=== PATIENT | female | born 1965 | race Caucasian/White ===

== ENCOUNTER 2017-05-19 12:13 | Inpatient (IN) | payer MEDICAID, SELFPAY ==
[2017-05-19] VITALS (26 sets, daily range): BP systolic 112–132; BP diastolic 62–86; PULSE 63–94; RESP 10–28; TEMP 36.9–37; O2SAT 63–98; BMI 21.6; BMI 46.9
--- NOTE | 2017-05-19 12:16 | ED.RN ---
CALLED FOR BIPAP PER DR DRAKE
--- NOTE | 2017-05-19 12:18 | RAD_ITS ---
STUDY: X-RAY CHEST REASON FOR EXAM: Female, 51 years old. Shortness of breath TECHNIQUE: One view COMPARISON: July 13, 2016 FINDINGS: There is cardiomegaly with a batwing distribution of consolidations most likely from pulmonary edema.. Normal visualized thoracic spine. Normal visualized ribs, clavicles, and shoulders. There is no demonstrated abnormality of the visualized soft tissue structures of the upper abdomen. RAD/Chest 1 View (Portable) IMPRESSION: Cardiomegaly with bilateral pulmonary edema Electronically Signed: Amado Kahn, at 13:24 EST Tel , Service support ,
--- NOTE | 2017-05-19 12:19 | EKG12_ITS ---
Test Reason : SOB Blood Pressure : / mmHG Vent. Rate : 089 BPM Atrial Rate : 091 BPM P-R Int : 000 ms QRS Dur : 098 ms QT Int : 404 ms P-R-T Axes : 000 083 168 degrees QTc Int : 491 ms Atrial fibrillation Nonspecific ST and T wave abnormality Prolonged QT Abnormal ECG Confirmed by BOB RAMÍREZ, SANTA ([id number]), fan mail editor BHASKAR AMANDA ([id number]) on 05/21/2017 1:21:06 PM Referred By: MAURILIO Confirmed By:SANTA ROJAS MD
--- NOTE | 2017-05-19 12:22 | ED.VISSUMM ---
- ER Visit Summary Date of Service: 05/19/17 Chief Complaint: Difficulty breathing History of Present Illness: The patient is a 51 F presents because of shortness of breath. She reports increased shortness of breath last evening. She was unable to lie flat on her back. She states she discontinued taking her Lasix because she thought she had the flu. She does have history of CHF and atrial fibrillation. She is on Eliquis. There is also history of hypertension, iron deficiency anemia, hypothyroidism, obstructive sleep apnea and pulmonary hypertension. Patient denies headache, visual, ocular or auditory symptoms. She denies runny nose, postnasal drainage or sore throat. She does have a cough. Her cough is nonproductive. She denies any chest discomfort. She denies nausea, vomiting or diarrhea. She denies dysuria, frequency, urgency hematuria. Physical Examination: SHEENT is hypoxic, tachypneic and tachycardic. She has central and peripheral cyanosis. Patient has labored breathing. She is able to speak in 1 or 2 word sentences. Pupils equal round reactive. Extra muscle intact. Conjunctive is pink. Uvula midline. No erythema x-ray posterior pharynx. Trachea midline. Unable to assess for JVD because of body habitus. Lungs reveal rales throughout. Heart is irregular with distant heart tones. Abdomen is soft nontender. She does have palpable distal pulses upper and lower extremity and they are symmetric. She is alert oriented with a nonfocal neurologic exam. Test Results: KG reveals atrial fibrillation rate 89 with an ossific anterolateral changes which are improved from July 13, 2016. QT prolongation is noted. Chest x-ray reveals pulmonary edema. White count is 3.8 with 80 segs no bands. H&H 11.4 and 33.9. Electrode panel was marked for slight elevation glucose 129. Troponin is less than 0.02. Blood gas on IP of 12 BP is 6 is remarkable for an AA gradient. PH is 7.48, PCO2 36.4, PaO2 64 with a saturation of 94%, which correlates with a pulse ox. Emergency Department Course and Treatment: Was placed on a nonrebreather mask. Her saturation increased to 85%. BiPAP was ordered since clinically she is in heart failure. EKG, portable chest x-ray and appropriate blood work was ordered. If x-ray confirms heart failure will place on nitroglycerin drip and administer Lasix for diuresis since she reports she has not taken her Lasix in 1 week. Treatment Plan: Since chest x-ray did reveal pulmonary edema. She was placed on nitroglycerin drip for preload and afterload reduction. She also was given Lasix since she discontinued her Lasix the past week. Disposition: Admit to ICU Impression: Line 1. Respiratory failure with hypoxia 2. Pulmonary edema 3. History of hypertension 4. Chronic atrial fibrillation on anticoagulation therapy 5. History of pulmonary hypertension 6. History of iron deficiency anemia This note was generated with [employer] dictation software. It may contain incorrect words, spelling, and punctuation that were not noted in review of the chart prior to signing ED Disposition - Plan for ED Patient: Chief Complaint: Shortness of Breath Referrals: Nabor Garcia Chi, MD [Primary Care Provider] -
--- NOTE | 2017-05-19 12:28 | ED.RN ---
[facility]
[2017-05-19 12:34] LABS: Absolute Lymphocyte Count 0.52 X10^3/ul (0.83-4.51); Basophil# 0.03 X10^3/uL; Basophil% 0.8 % (0-1); Eosinophil# 0.03 X10^3/uL; Eosinophils% 0.8 % (0-5); Hematocrit 34.9 % (37-47); Hemoglobin 11.4 g/dl (12.0-15.0); Lymphocyte # 0.52 X10^3/ul (4.0); Lymphocyte % 13.6 % (19-41); Mean Corp Hgb Conc 32.7 g/gl (32-36); Mean Corpuscular Hgb 29.3 pg (27.0-32.0); Mean Corpuscular Volume 89.7 fL (81-99); Mean Platelet Vol. 12.5 fl (6.2-12.0); Monocyte# 0.19 X10^3/uL; Neutrophil # 3.04 X10^3/uL (2.7-7.7); Neutrophil % 79.5 % (47-70); Platelet Count 149 K/mm3 (150-450); RBC Distribution Width CV 13.5 % (11.6-14.6); RBC Distribution Width SD 43.6 fl (35.1-43.9); Red Blood Count 3.89 M/mm3 (4.2-5.4); White Blood Count 3.8 K/mm3 (4.4-11.0)
[2017-05-19 12:41] LABS: Differential Indicated SCAN CRITERIA MET; POSITIVE COUNT NO; POSITIVE DIFFERENTIAL YES; POSITIVE MORPHOLOGY NO
[2017-05-19] MEDS: Furosemide 40 MG/4 ML Vial IV ×2 (12:46→22:47)
[2017-05-19 12:52] LABS: Differential Comment SCANNED
[2017-05-19 12:54] LABS: Anion Gap 10 (5-15); BUN 17 mg/dL (7-18); BUN/Creat Ratio 22.2 RATIO (10-20); Calcium,Total 8.8 mg/dL (8.5-10.1); Chloride 102 mmol/L (98-107); Creatinine, Serum 0.76 mg/dL (0.55-1.02); EST Glomerular Filtration Rate 84 mL/min (>60); Est Glom Filt Rate - Afr Amer 102 mL/min (>60); Glucose 129 mg/dL (74-106); Potassium 3.2 mmol/L (3.5-5.1); Sodium Level 139 mmol/L (136-145)
[2017-05-19 12:56] LABS: Allen Test POS; Base Excess 3 mmol/L (-2 to +2); Blood Gas Specimen Type ART; EPAP 6; FI02 35; IPAP 12; PO2 64 mmHG (75-100); RR 24; SITE R Radial; SO2 94 % (95-99); Time Given 1244; Total Carbon Dioxide 28 mmol/L; pCO2 36.4 mmHg (35-45); pH 7.48 (7.35-7.45)
[2017-05-19] MEDS: Nitroglycerin Infusion 250 ML 3 MG IV (12:57)
--- NOTE | 2017-05-19 13:18 | ED.RN ---
RESPIRATORY THERAPY NOTIFIED PULSE OX RANGING 88-91% ON BIPAP. ALSO ASKED TO ADJUST MASK
--- NOTE | 2017-05-19 13:51 | PCM.HP.STD ---
Problem List (1) Atrial fibrillation Status: Chronic Qualifiers: (2) JASMIN (obstructive sleep apnea) Status: Chronic Comment: untreated (3) Obesity, Class III, BMI 40-49.9 (morbid obesity) Status: Chronic (4) Hypertension Status: Chronic Qualifiers: (5) Hematoma of leg Status: Chronic (6) Pulmonary hypertension Status: Chronic (7) Hypothyroidism Status: Chronic Qualifiers: (8) Chronic anticoagulation Status: Chronic (9) Osteoarthritis Status: Chronic (10) Depression Status: Chronic History of Present Illness Date of Admission: 05/19/17 Chief Complaint: Shortness of breath. The patient is a 51 year old F with past medical history as mentioned above presented to the emergency room because of shortness of breath. Her symptoms started around 6 days ago with slowly progressive shortness of breath, initially was with mild to moderate exertion and over the last couple of days, has been even at rest, aggravated by activity, no significant relieving factors, associated with minimally productive cough and subjective fever at home. She mentioned that at the beginning of this illness, she had symptoms with subjective fever, muscle aches, malaise and shortness of breath as well as diarrhea and nausea. At this time, she denies any more nausea and diarrhea for the last 3 days. She denied chest pain dictation, dizziness or lightheadedness. Denied abdominal pain. she denies urinary symptoms. She mentioned that she does have a history of congestive heart failure and she has been on Lasix but she stopped taking Lasix for the last week since became sick to avoid going to the bathroom multiple times. In the emergency room, patient was dyspneic and tachypneic. She was afebrile, blood pressure stable, pulse ox was 63% on room air. She was started on IV nitroglycerin drip, started on BiPAP and her pulse ox improved with BiPAP to 96%. Is remarkable for potassium of 3.2, otherwise normal. Appointment was negative. EKG revealed A. fib, rate controlled, no acute ischemic changes. ABG revealed pH of 7.48, PCO2 of 36 and PO2 of 64. Chest x-ray showed bilateral pulmonary vascular congestion, more on the right side consistent with acute pulmonary edema picture. She is being admitted for acute hypoxic respiratory failure secondary to acute pulmonary edema and possible interstitial pneumonitis given her history of flulike symptoms at the beginning of her illness. Past Medical History Past Medical History (Chronic Problems): Chronic Problems Open wound of right lower leg (Chronic) S81.801A open surgical hematoma wound right anterior leg Atrial fibrillation (Chronic) JASMIN (obstructive sleep apnea) (Chronic) untreated Obesity, Class III, BMI 40-49.9 (morbid obesity) (Chronic) Hypertension (Chronic) Hematoma of leg (Chronic) Pulmonary hypertension (Chronic) Hypothyroidism (Chronic) Chronic anticoagulation (Chronic) Osteoarthritis (Chronic) Depression (Chronic) Allergies No Known Allergies Allergy (Verified 04/27/17 11:12) Home Medications: Ambulatory Orders Medication Instructions Recorded Fluoxetine [Prozac] 60 mg PO DAILY 07/05/15 Ranitidine [Zantac] 150 mg PO BID 07/05/15 Metoprolol Tartrate [Lopressor 50 mg PO BID 05/16/16 (beta miriam)] Apixaban [Eliquis] 5 mg PO BID #0 tab 05/23/16 gabapentin 100 mg capsule 300 mg PO TID 30 Days #60 04/27/17 levothyroxine 50 mcg tablet 50 mcg PO DAILY 30 Days #30 04/27/17 oxaprozin 600 mg tablet 600 mg PO BID 30 Days #60 04/27/17 ranitidine 150 mg capsule 150 mg PO DAILY 30 Days #60 04/27/17 Diltiazem HCl [Tiazac] 180 mg PO DAILY 05/19/17 Surgical History: cholecystectomy, - - arthroscopic surgery on the knee, umbilical hernia repair. Debridement hematoma right leg in 2007. surgical preparation right anterior leg with incision and drainage and excisional debridement hematoma (380 cm2) - 05/17/16. Excisional debridement nonhealing hematoma ulcer right anterior leg with STSG reconstruction from lower anterior abdominal wall (126 cm2) - 09/21/16. Psychiatric History: No pertinent psych hx DIRECTOR DIGITAL CATALOGUE History: No pertinent DIRECTOR DIGITAL CATALOGUE history Lives: With Family Smoking Status: Former smoker Alcohol: None Drugs: None - *Family History Paternal History Items: Heart Disease - father at 64 YOA with an PR, Hypertension, Stroke Maternal History Items: Hypertension, Stroke Review of Systems Constitutional: Denies: Anorexia, Chills, Fever, Weakness Eyes: Denies: Blurred vision, Double vision, Drainage, Redness HEENT: Denies: Difficulty Hearing, Ear Pain, Eye Pain, Nasal Congestion, Sore Throat Cardiovascular: Reports: Orthopnea. Denies: Chest Pain, Chest Pressure, Edema, Heaviness, Light Headedness, Paroxysmal Noc. Dyspnea, Syncope Respiratory: Reports: Cough, Shortness of Breath, Shortness of breath at rest, Shortness of breath upon exertion, Sputum production. Denies: Hemoptysis, Pleuritic Pain, Wheezing Gastrointestinal: Reports: Diarrhea, Nausea. Denies: Abdominal Pain, Constipation, Vomiting Genitourinary: Denies: Dysuria, Frequency, Hematuria Musculoskeletal: Denies: Arm Pain, Back Pain, Foot Pain Skin: Denies: Dryness, Rash Neurological: Denies: Balance problems, Double vision, Change in Speech, Slurred speech, Confusion, Headaches, Incoordination, Numbness Psychiatric: Reports: Depression. Denies: Anxiety Endocrine: Denies: Change in Body Habitus, Polydipsia VTE Information - Inpt Only VTE Present on Admission: No VTE Mechan Device Prophylaxis: None VTE Pharm Prophylaxis ordered?: No - Physical Exam General: Alert, Oriented x3, Cooperative, - - She is in moderate respiratory distress. HEENT: Atraumatic, PERRLA, EOMI Oral: Moist Mucosa, No Gingival or Mucosal Lesions/ Ulcerations Neck: Supple, No JVD, Negative Carotid Bruits, Trachea Midline, Thyroid Normal Size and Texture Lungs: No wheeze, Rales, Rhonchi, Short of Breath, Tachypneic, - - Decreased breath sounds bilateral, bilateral coarse crackles, rhonchi. Cardiovascular: Normal S1, Normal S2, No murmurs, PMI Normal, Irregular Rate Abdomen: Bowel Sounds Present, Soft, Non Tender, Non-Distended, No Hepato-splenomegaly, Obese Extremities: No clubbing, No cyanosis, No edema, - - Scar and skin graft on the right lower extremity, no evidence of open wounds or infection. Skin: No rashes, No breakdown Lymphatic: No Cervical, Supraclavicular, or Inguinal Adenopathy Neurological: Cranial nerves II-XII grossly intact, Motor Exam 5/5 strength throughout Psych/Mental Status: Normal Affect, Appropriate, Alert and oriented to time, place, person, mood and affect Vital Signs Temp Pulse Resp BP Pulse Ox 98.4 F 90 28 H 118/80 98 05/19/17 12:14 05/19/17 13:35 05/19/17 13:35 05/19/17 13:35 02/10/18 13:35 Oxygen Delivery Method Bi-pap Laboratory Tests 05/19/17 05/19/17 05/19/17 Range/Units 12:49 12:20 12:20 WBC 3.8 L (4.4-11.0) K/mm3 RBC 3.89 L (4.2-5.4) M/mm3 Hgb 11.4 L (12.0-15.0) g/dl Hct 34.9 L (37-47) % MCV 89.7 (81-99) fL MCH 29.3 (27.0-32.0) pg MCHC 32.7 (32-36) g/gl RDW 13.5 (11.6-14.6) % RDW Differential 43.6 (35.1-43.9) fl Plt Count 149 L (150-450) K/mm3 MPV 12.5 H (6.2-12.0) fl Immature Gran % (Auto) 0.300 (0.0-0.9) % Neut % (Auto) 79.5 H (47-70) % Lymph % (Auto) 13.6 L (19-41) % Collier % (Auto) 5.0 (0-10) % Eos % (Auto) 0.8 (0-5) % Baso % (Auto) 0.8 (0-1) % Absolute Neuts (auto) 3.0 (2.0-7.7) X10^3/uL Absolute Lymphs (auto) 0.52 L (0.83-4.51) X10^3/ul Total Counted Not Reportable Differential Comment SCANNED Specimen Type ART Sample Site R Radial pH 7.48 H (7.35-7.45) Bicarbonate Actual 27.0 H (22-26) mmol/L POC Total CO2 28 mmol/L Base Excess 3 H (-2 to +2) mmol/L O2 Saturation 94 L (95-99) % O2 % 35 ABG pCO2 36.4 (35-45) mmHg ABG pO2 64 L (75-100) mmHG David Test POS Respiration Rate 24 O2 Delivery Device Bi / C PAP EPAP 6 IPAP 12 Blood Gas Notified Whom ED Blood Gas Notified Time 1244 Sodium 139 (136-145) mmol/L Potassium 3.2 L (3.5-5.1) mmol/L Chloride 102 (98-107) mmol/L Carbon Dioxide 27.0 (21.0-32.0) mmol/L Anion Gap 10 (5-15) BUN 17 (7-18) mg/dL Creatinine 0.76 (0.55-1.02) mg/dL Estim Creat Clear Calc 84.20 ml/min Est GFR (MDRD) Af Amer 102 (>60) mL/min Est GFR (MDRD) Non-Af 84 (>60) mL/min BUN/Creatinine Ratio 22.2 H (10-20) RATIO Glucose 129 H (74-106) mg/dL Calcium 8.8 (8.5-10.1) mg/dL Troponin I < 0.02 (<0.06) ng/mL Clinical Impression(s) from Imaging Studies Chest X-Ray 05/19/17 12:18 IMPRESSION: Cardiomegaly with bilateral pulmonary edema Electronically Signed: Amado Khan, at 13:24 EST Tel , Service support , Assessment/Plan This is a 51 years old female patient presented to the emergency room because of 1 week history of shortness of breath preceded by flulike symptoms, found to have acute hypoxic respiratory failure attributed to acute pulmonary edema and possible bilateral postviral interstitial pneumonitis. #1 acute hypoxic respiratory failure: Attributed to acute pulmonary edema which could be due to acute and chronic CHF versus interstitial pneumonitis. Patient does have history of sleep apnea as well as pulmonary hypertension and she mentioned that she does have history of CHF and she has been on Lasix but she did not take her Lasix for the last week when she is sick with flulike symptoms. Chest x-ray reviewed, showed bilateral pulmonary vascular congestion, more on the right lung. EKG revealed A. fib, rate controlled, no acute ischemic changes. Troponin is negative. Plan: Admit to PCU, cardiac monitoring, serial cardiac enzymes, 2D echocardiogram, IV Lasix for diuresis, bronchodilators, continue BiPAP, Empiric IV Levaquin, repeat chest x-ray tomorrow morning, incentive spirometer, PT OT evaluation and treatment. #2 acute pulmonary edema: This is based on chest x-ray findings as well as symptoms. Does have history of CHF and she has been noncompliant with Lasix for the last week. Echocardiogram on July, that showed ejection fraction 55%. Plan: IV Lasix for diuresis, serial cardiac enzymes, 2D echocardiogram, continue BiPAP for now. #3 possible post viral interstitial pneumonitis: This is based on flulike symptoms preceding this illness as well as productive cough, diarrhea and nausea. She is afebrile, no leukocytosis which goes against pneumonitis. Plan: Respiratory panel for viruses, pneumococcal and Legionella antigen, bronchodilators, empiric IV Levaquin, sputum culture, urine culture, UA. #4 hypokalemia: Likely because of the diarrhea which stopped at this time. Also, patient was on Lasix. Plan to replace potassium with oral K Dur, repeat BMP tomorrow morning. #5 chronic atrial fibrillation: Rate is stable, blood pressure stable, continue Cardizem and metoprolol for rate control, continue Eliquis for anticoagulant. #6 Hypertension: Blood pressure stable, continue metoprolol and Cardizem. #7 hypothyroidism: Continue levothyroxine. 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 Stable, no acute issues, no evidence of open wounds of the right lower extremity. #9 DVT prophylaxis: Continue Eliquis. Other chronic medical problems: #1 obstructive sleep apnea. Untreated. #2 depression. #3 pulmonary hypertension. #4 osteoarthritis. This note was generated with [employer] dictation software. It may contain incorrect words, spelling, and punctuation that were not noted in checking the note before signing. Code Visit Inpatient E&M: 30807 Init Hosp L3
--- NOTE | 2017-05-19 13:55 | ECHOD_ITS ---
Reason For Study: CHF Procedure This was a 2D Doppler, Color Flow transthoracic echocardiogram. Exam performed portable in patient room. Left Ventricle Normal LV size. The estimated ejection fraction is 50 %. No regional wall motion abnormalities noted. Right Ventricle Normal RV size. Normal systolic function. Atria The left atrium is moderately enlarged. The right atrium is moderately enlarged. Mitral Valve Normal mitral valve. Tricuspid Valve Normal tricuspid valve. Mild (1+) tricuspid valve insufficiency. Pulmonary artery systolic pressure is 34 mmHg. Aortic Valve Normal aortic valve. Pulmonic Valve Normal pulmonic valve. Great Vessels Normal aortic root. The pulmonary artery is normal size. Normal inferior vena cava. Pericardium/Pleural No pericardial effusion. MMode/2D Measurements & Calculations LVIDd: 5.2 cm IVSd: 0.77 cm Ao root diam: 3.6 cm LVIDs: 3.9 cm LVPWd: 0.83 cm LA dimension: 5.0 cm RVDd: 4.1 cm FS: 25.1 % LAV(MOD-bp): 97.9 ml LA A4 area: 29.7 cm2 RA A4 area: 26.1 cm2 LAV(MOD-bp) Indexed: 41.3 ml/m2 LAV(MOD-sp2): 97.7 ml LAV(MOD-sp4): 96.9 ml Doppler Measurements & Calculations MV E max long: 85.8 cm/sec Lat Peak E' Long: 15.7 cm/sec Med Peak E' Long: 5.5 cm/sec E/E' lat: 5.5 E/E' med: 15.6 Ao V2 max: 137.6 cm/sec LV V1 max: 109.2 cm/sec PA V2 max: 81.8 cm/sec Ao max P.8 mmHg LV V1 max P.8 mmHg Ao V2 mean: 96.8 cm/sec Ao mean P.2 mmHg Ao V2 VTI: 21.9 cm TR max long: 269.0 cm/sec TR max P.2 mmHg Interpretation Summary Normal LV size. The estimated ejection fraction is 50 %. The left atrium is moderately enlarged. The right atrium is moderately enlarged. Structurally normal valves. Ordering Physician: Abdoul Cuellar Referring Physician: Nabor Garcia Chi Performed By: Aleksandra Andrew, MARIEL, RVT
--- NOTE | 2017-05-19 13:59 | HP.PCM_ITS ---
Problem List (1) Atrial fibrillation Status: Chronic Qualifiers: (2) JASMIN (obstructive sleep apnea) Status: Chronic Comment: untreated (3) Obesity, Class III, BMI 40-49.9 (morbid obesity) Status: Chronic (4) Hypertension Status: Chronic Qualifiers: (5) Hematoma of leg Status: Chronic (6) Pulmonary hypertension Status: Chronic (7) Hypothyroidism Status: Chronic Qualifiers: (8) Chronic anticoagulation Status: Chronic (9) Osteoarthritis Status: Chronic (10) Depression Status: Chronic History of Present Illness Date of Admission: 05/19/17 Chief Complaint: Shortness of breath. The patient is a 51 year old F with past medical history as mentioned above presented to the emergency room because of shortness of breath. Her symptoms started around 6 days ago with slowly progressive shortness of breath, initially was with mild to moderate exertion and over the last couple of days, has been even at rest, aggravated by activity, no significant relieving factors , associated with minimally productive cough and subjective fever at home. She mentioned that at the beginning of this illness, she had symptoms with subjective fever, muscle aches, malaise and shortness of breath as well as diarrhea and nausea. At this time, she denies any more nausea and diarrhea for the last 3 days. She denied chest pain dictation, dizziness or lightheadedness. Denied abdominal pain. she denies urinary symptoms. She mentioned that she does have a history of congestive heart failure and she has been on Lasix but she stopped taking Lasix for the last week since became sick to avoid going to the bathroom multiple times. In the emergency room, patient was dyspneic and tachypneic. She was afebrile, blood pressure stable, pulse ox was 63% on room air. She was started on IV nitroglycerin drip, started on BiPAP and her pulse ox improved with BiPAP to 96%. Is remarkable for potassium of 3.2, otherwise normal. Appointment was negative. EKG revealed A. fib, rate controlled, no acute ischemic changes. ABG revealed pH of 7.48, PCO2 of 36 and PO2 of 64. Chest x-ray showed bilateral pulmonary vascular congestion, more on the right side consistent with acute pulmonary edema picture. She is being admitted for acute hypoxic respiratory failure secondary to acute pulmonary edema and possible interstitial pneumonitis given her history of flulike symptoms at the beginning of her illness. Past Medical History Past Medical History (Chronic Problems): Chronic Problems Open wound of right lower leg (Chronic) S81.801A open surgical hematoma wound right anterior leg Atrial fibrillation (Chronic) JASMIN (obstructive sleep apnea) (Chronic) untreated Obesity, Class III, BMI 40-49.9 (morbid obesity) (Chronic) Hypertension (Chronic) Hematoma of leg (Chronic) Pulmonary hypertension (Chronic) Hypothyroidism (Chronic) Chronic anticoagulation (Chronic) Osteoarthritis (Chronic) Depression (Chronic) Allergies No Known Allergies Allergy (Verified 04/27/17 11:12) Home Medications: Ambulatory Orders Medication Instructions Recorded Fluoxetine [Prozac] 60 mg PO DAILY 07/05/15 Ranitidine [Zantac] 150 mg PO BID 07/05/15 Metoprolol Tartrate [Lopressor 50 mg PO BID 05/16/16 (beta miriam)] Apixaban [Eliquis] 5 mg PO BID #0 tab 05/23/16 gabapentin 100 mg capsule 300 mg PO TID 30 Days #60 04/27/17 levothyroxine 50 mcg tablet 50 mcg PO DAILY 30 Days #30 04/27/17 oxaprozin 600 mg tablet 600 mg PO BID 30 Days #60 04/27/17 ranitidine 150 mg capsule 150 mg PO DAILY 30 Days #60 04/27/17 Diltiazem HCl [Tiazac] 180 mg PO DAILY 05/19/17 Surgical History: cholecystectomy, - - arthroscopic surgery on the knee, umbilical hernia repair. Debridement hematoma right leg in 2007. surgical preparation right anterior leg with incision and drainage and excisional debridement hematoma (380 cm2) - 05/17/16. Excisional debridement nonhealing hematoma ulcer right anterior leg with STSG reconstruction from lower anterior abdominal wall (126 cm2) - 09/21/16. 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 Denies: Chest Pain, Chest Pressure, Edema, Heaviness, Light Headedness, Paroxysmal Noc. Dyspnea, Syncope Respiratory: Reports: Cough, Shortness of Breath, Shortness of breath at rest, Shortness of breath upon exertion, Sputum production. Denies: Hemoptysis, Pleuritic Pain, Wheezing Gastrointestinal: Reports: Diarrhea, Nausea. Denies: Abdominal Pain, Constipation, Vomiting Genitourinary: Denies: Dysuria, Frequency, Hematuria Musculoskeletal: Denies: Arm Pain, Back Pain, Foot Pain Skin: Denies: Dryness, Rash Neurological: Denies: Balance problems, Double vision, Change in Speech, Slurred speech, Confusion, Headaches, Incoordination, Numbness Psychiatric: Reports: Depression. Denies: Anxiety Endocrine: Denies: Change in Body Habitus, Polydipsia VTE Information - Inpt Only VTE Present on Admission: No VTE Mechan Device Prophylaxis: None VTE Pharm Prophylaxis ordered?: No - Physical Exam General: Alert, Oriented x3, Cooperative, - - She is in moderate respiratory distress. HEENT: Atraumatic, PERRLA, EOMI Oral: Moist Mucosa, No Gingival or Mucosal Lesions/ Ulcerations Neck: Supple, No JVD, Negative Carotid Bruits, Trachea Midline, Thyroid Normal Size and Texture Lungs: No wheeze, Rales, Rhonchi, Short of Breath, Tachypneic, - - Decreased breath sounds bilateral, bilateral coarse crackles, rhonchi. Cardiovascular: Normal S1, Normal S2, No murmurs, PMI Normal, Irregular Rate Abdomen: Bowel Sounds Present, Soft, Non Tender, Non-Distended, No Hepato- splenomegaly, Obese Extremities: No clubbing, No cyanosis, No edema, - - Scar and skin graft on the right lower extremity, no evidence of open wounds or infection. Skin: No rashes, No breakdown Lymphatic: No Cervical, Supraclavicular, or Inguinal Adenopathy Neurological: Cranial nerves II-XII grossly intact, Motor Exam 5/5 strength throughout Psych/Mental Status: Normal Affect, Appropriate, Alert and oriented to time, place, person, mood and affect Vital Signs Temp Pulse Resp BP Pulse Ox 98.4 F 90 28 H 118/80 98 05/19/17 12:14 05/19/17 13:35 05/19/17 13:35 05/19/17 13:35 02/10/18 13:35 Oxygen Delivery Method Bi-pap Laboratory Tests 3 05/19/17 05/19/17 05/19/17 Range/Units 12:49 12:20 12:20 WBC 3.8 L (4.4-11.0) K/mm3 RBC 3.89 L (4.2-5.4) M/mm3 Hgb 11.4 L (12.0-15.0) g/dl Hct 34.9 L (37-47) % MCV 89.7 (81-99) fL MCH 29.3 (27.0-32.0) pg MCHC 32.7 (32-36) g/gl RDW 13.5 (11.6-14.6) % RDW Differential 43.6 (35.1-43.9) fl Plt Count 149 L (150-450) K/mm3 MPV 12.5 H (6.2-12.0) fl Immature Gran % (Auto) 0.300 (0.0-0.9) % Neut % (Auto) 79.5 H (47-70) % Lymph % (Auto) 13.6 L (19-41) % Assumption % (Auto) 5.0 (0-10) % Eos % (Auto) 0.8 (0-5) % Baso % (Auto) 0.8 (0-1) % Absolute Neuts (auto) 3.0 (2.0-7.7) X10^3/uL Absolute Lymphs (auto) 0.52 L (0.83-4.51) X10^3/ul Total Counted Not Reportable Differential Comment SCANNED Specimen Type ART Sample Site R Radial pH 7.48 H (7.35-7.45) Bicarbonate Actual 27.0 H (22-26) mmol/L POC Total CO2 28 mmol/L Base Excess 3 H (-2 to +2) mmol/L O2 Saturation 94 L (95-99) % O2 % 35 ABG pCO2 36.4 (35-45) mmHg ABG pO2 64 L (75-100) mmHG David Test POS Respiration Rate 24 O2 Delivery Device Bi / C PAP EPAP 6 IPAP 12 Blood Gas Notified Whom ED Blood Gas Notified Time 1244 Sodium 139 (136-145) mmol/L Potassium 3.2 L (3.5-5.1) mmol/L Chloride 102 (98-107) mmol/L Carbon Dioxide 27.0 (21.0-32.0) mmol/L Anion Gap 10 (5-15) BUN 17 (7-18) mg/dL Creatinine 0.76 (0.55-1.02) mg/dL Estim Creat Clear Calc 84.20 ml/min Est GFR (MDRD) Af Amer 102 (>60) mL/min Est GFR (MDRD) Non-Af 84 (>60) mL/min BUN/Creatinine Ratio 22.2 H (10-20) RATIO Glucose 129 H (74-106) mg/dL Calcium 8.8 (8.5-10.1) mg/dL Troponin I < 0.02 (<0.06) ng/mL 3 Clinical Impression(s) from Imaging Studies Chest X-Ray 05/19/17 12:18 IMPRESSION: Cardiomegaly with bilateral pulmonary edema Electronically Signed: Amado Khan, at 13:24 EST Tel , Service support , Assessment/Plan This is a 51 years old female patient presented to the emergency room because of 1 week history of shortness of breath preceded by flulike symptoms, found to have acute hypoxic respiratory failure attributed to acute pulmonary edema and possible bilateral postviral interstitial pneumonitis. #1 acute hypoxic respiratory failure: Attributed to acute pulmonary edema which could be due to acute and chronic CHF versus interstitial pneumonitis. Patient does have history of sleep apnea as well as pulmonary hypertension and she mentioned that she does have history of CHF and she has been on Lasix but she did not take her Lasix for the last week when she is sick with flulike symptoms. Chest x-ray reviewed, showed bilateral pulmonary vascular congestion , more on the right lung. EKG revealed A. fib, rate controlled, no acute ischemic changes. Troponin is negative. Plan: Admit to PCU, cardiac monitoring , serial cardiac enzymes, 2D echocardiogram, IV Lasix for diuresis, bronchodilators, continue BiPAP, Empiric IV Levaquin, repeat chest x-ray tomorrow morning, incentive spirometer, PT OT evaluation and treatment. #2 acute pulmonary edema: This is based on chest x-ray findings as well as symptoms. Does have history of CHF and she has been noncompliant with Lasix for the last week. Echocardiogram on July, that showed ejection fraction 55%. Plan: IV Lasix for diuresis, serial cardiac enzymes, 2D echocardiogram, continue BiPAP for now. #3 possible post viral interstitial pneumonitis: This is based on flulike symptoms preceding this illness as well as productive cough, diarrhea and nausea. She is afebrile, no leukocytosis which goes against pneumonitis. Plan : Respiratory panel for viruses, pneumococcal and Legionella antigen, bronchodilators, empiric IV Levaquin, sputum culture, urine culture, UA. #4 hypokalemia: Likely because of the diarrhea which stopped at this time. Also , patient was on Lasix. Plan to replace potassium with oral K Dur, repeat BMP tomorrow morning. #5 chronic atrial fibrillation: Rate is stable, blood pressure stable, continue Cardizem and metoprolol for rate control, continue Eliquis for anticoagulant. #6 Hypertension: Blood pressure stable, continue metoprolol and Cardizem. #7 hypothyroidism: Continue levothyroxine. 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 Stable, no acute issues, no evidence of open wounds of the right lower extremity. #9 DVT prophylaxis: Continue Eliquis. Other chronic medical problems: #1 obstructive sleep apnea. Untreated. #2 depression. #3 pulmonary hypertension. #4 osteoarthritis. This note was generated with [employer] Directation software. It may contain incorrect words, spelling, and punctuation that were not noted in checking the note before signing. Code Visit Inpatient E&M: 08254 Init Hosp L3
[2017-05-19 14:38] LABS: International Normalized Ratio 1.1; Prothrombin Time (Protime)PT. 13.5 SECONDS (11.7-14.9)
[2017-05-19 14:39] LABS: BNP,B-Type NATRIURETIC PEPTIDE 677.5 pg/mL (0-100)
[2017-05-19] MEDS: Metoprolol Tartrate 50 MG Tablet PO ×2 (15:19→22:48)
[2017-05-19] MEDS: Famotidine 20 MG Tablet PO ×2 (15:19→22:48)
[2017-05-19] MEDS: Levothyroxine 50 MCG Tablet PO (15:19)
[2017-05-19] MEDS: APIXABAN 5 MG TABLET PO ×2 (15:19→22:47)
[2017-05-19] MEDS: FLUoxetine 20 MG Capsule 60 MG PO (15:20)
[2017-05-19 15:51] LABS: Bacteria 0 SEEN /hpf (None Seen); Mucous, Urine 0 SEEN /hpf (<or=2+); Squamous Epithelial Cells - UA 0 SEEN /hpf (5-10); White Blood Cells 0 SEEN /hpf (0-5)
[2017-05-19 15:53] LABS: Color, Urine Straw (Yellow); Glucose, Dipstick Normal (Normal); Ketone-Dipstick Negative (Negative); Leukocyte Esterase-Dipstick Negative /ul (Negative); Nitrite-Dipstick Negative (Negative); Occult Blood-Urine Negative /ul (Negative); Protein-Dipstick Negative (Negative); Urine Bilirubin Dipstick Negative (Negative); Urine Clarity Clear (Clear); Urine Urobilinogen Normal (Normal)
[2017-05-19 16:01] LABS: Red Blood Cells-Urine 0-5 SEEN /hpf (0-5)
--- NOTE | 2017-05-19 16:22 | CON.PCM_ITS ---
Problem List (1) Pulmonary edema Status: Acute (2) Atrial fibrillation Status: Chronic Qualifiers: Atrial fibrillation type: permanent (3) Tricuspid valve disorder Status: Chronic (4) Hypertension Status: Chronic Qualifiers: Hypertension type: essential hypertension (5) Pulmonary hypertension Status: Chronic (6) JASMIN (obstructive sleep apnea) Status: Chronic Comment: untreated (7) Hypothyroidism Status: Chronic Qualifiers: Reason for Consult Date of Consultation: 05/19/17 History of Present Illness: The patient is a 51 year old white female with a past cardiovascular history which is included permanent atrial fibrillation superimposed upon hypertension, pulmonary hypertension, obstructive sleep apnea, and hypothyroidism who presents for evaluation of acute pulmonary edema. She states she has been aggressively short of breath and dyspneic although that has acutely worsened this day. She has been having symptoms compatible with orthopnea and PND. She has not developed lower extremity peripheral pitting edema. There has been no associated chest discomfort other than what she attributes to coughing. There is been no near syncope or syncope. She states that she felt as if she may have had a viral illness. She was coughing with some sputum production. She states she did not look at the sputum . She was also having, earlier this past week, nausea, emesis, and reports of diarrhea. She notes because of her difficulty with respect emesis and diarrhea she discontinued her diuretic therapy. As the weakness progressed and especially this day her shortness of breath and dyspnea has progressed. She presented to the emergency department. She was noted to be markedly hypoxic with an O2 saturation of approximately 63% on room air. She was noted on examination to have diminished breath sounds and on a chest x-ray to have findings compatible with bilateral increased pulmonary vascularity/edema and/or infiltrates. She was treated with diuretic therapy as well as BiPAP therapy. She had subsequent improvement in her oxygenation. She was placed in the PCU for further evaluation and care. Her troponin I level was negative. Her BTNP level was elevated. Her ECG demonstrated atrial fibrillation with nonspecific ST and T-wave abnormality. In comparison to previous ECGs available from May 2016 and July 2016 there appeared to be similar type findings. Past Medical History Allergies/Adverse Reactions: Allergies No Known Allergies Allergy (Verified 04/27/17 11:12) Home Medications: Ambulatory Orders Medication Instructions Recorded Fluoxetine [Prozac] 60 mg PO DAILY 07/05/15 Ranitidine [Zantac] 150 mg PO BID 07/05/15 Metoprolol Tartrate [Lopressor 50 mg PO BID 05/16/16 (beta miriam)] Apixaban [Eliquis] 5 mg PO BID #0 tab 05/23/16 gabapentin 100 mg capsule 300 mg PO TID 30 Days #60 04/27/17 levothyroxine 50 mcg tablet 50 mcg PO DAILY 30 Days #30 04/27/17 oxaprozin 600 mg tablet 600 mg PO BID 30 Days #60 04/27/17 Diltiazem HCl [Tiazac] 180 mg PO DAILY 05/19/17 Furosemide [Lasix] 40 mg PO DAILY 05/19/17 Past Medical History (Chronic Problems): Chronic Problems Tricuspid valve disorder (Chronic) Open wound of right lower leg (Chronic) S81.801A open surgical hematoma wound right anterior leg Atrial fibrillation (Chronic) JASMIN (obstructive sleep apnea) (Chronic) untreated Obesity, Class III, BMI 40-49.9 (morbid obesity) (Chronic) Hypertension (Chronic) Hematoma of leg (Chronic) Pulmonary hypertension (Chronic) Hypothyroidism (Chronic) Chronic anticoagulation (Chronic) Osteoarthritis (Chronic) Depression (Chronic) Surgical History: cholecystectomy, - - arthroscopic surgery on the knee, umbilical hernia repair. Debridement hematoma right leg in 2007. surgical preparation right anterior leg with incision and drainage and excisional debridement hematoma (380 cm2) - 05/17/16. Excisional debridement nonhealing hematoma ulcer right anterior leg with STSG reconstruction from lower anterior abdominal wall (126 cm2) - 09/21/16. 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 - *Family History Paternal Family History: Family History (Last Updated 04/27/17 @ 11:10 by Holli Diallo) Father CAD (coronary artery disease) Pacemaker CHF (congestive heart failure) History Items: Heart Disease - father at 64 YOA with an [place], Hypertension, Stroke Maternal Family History: Family History (Last Updated 04/27/17 @ 11:10 by Holli Diallo) Father CAD (coronary artery disease) Pacemaker CHF (congestive heart failure) History Items: Hypertension, Stroke Lives: With Family Smoking Status: Former smoker Alcohol: None Drugs: None Review of Systems - Review of Systems General: Reports: Fever, Weakness. Denies: Fatigue, Night Sweats Cardiovascular: Reports: Shortness of Breath, Shortness of Breath at Rest, Shortness of Breath with Exertion, Orthopnea, PND. Denies: Chest Discomfort, Peripheral Edema, Palpitations, Lightheadedness, Dizziness, Near Syncope, Syncope Respiratory: Reports: Cough, Sputum Production, Shortness of Breath. Denies: Hemoptysis Gastrointestinal: Reports: Nausea, Emesis, Diarrhea. Denies: Hematemesis, Hematochezia, Melena Genitourinary: Denies: Dysuria, Hematuria Skin: Denies: Rash Subjectve: This is a 51-year-old white female who appears to be resting comfortably at the moment with her BiPAP mask. Objective: Vital Signs Temp Pulse Resp BP Pulse Ox 98.6 F 81 20 H 113/82 H 96 05/19/17 15:25 05/19/17 16:06 05/19/17 16:06 05/19/17 15:25 05/19/17 16:06 Oxygen Delivery Method Bi-pap Weight: 299 lb 9.731 oz Body Mass Index (BMI) 46.9 General: Awake, Alert, Oriented x 3, Cooperative, Obese Neck: No JVD Lungs: Rhonchi Cardiovascular: Irregular Rhythm, Normal S1, Normal S2 Abdomen: Bowel Sounds Present, Soft, Non Tender Extremities: No Cyanosis, No Clubbing, No edema 05/19/17 14:20: PT 13.5, INR 1.1 05/19/17 14:50: Urine Color Straw, Urine Clarity Clear, Urine pH 7.0, Ur Specific Thompson 1.010, Urine Protein Negative, Urine Glucose (UA) Normal, Urine Ketones Negative, Urine Occult Blood Negative, Urine Nitrite Negative, Urine Bilirubin Negative, Urine Urobilinogen Normal, Ur Leukocyte Esterase Negative, Urine RBC 0-5 SEEN, Urine WBC 0 SEEN Rhythm: Atrial fibrillation EKG: As noted above ECHO: 2015: Left ventricle: Normal with an LVEF of 55%; mild to moderate TR; estimated RV systolic pressure of 34 mmHg Holter monitor: 01/13/2016: Atrial fibrillation/flutter; PVCs CXR: Pulmonary evaluation: As noted above Assessment/Plan 1. Pulmonary edema The patient has findings compatible with pulmonary edema. It is unclear as to whether this is primarily cardiovascular related based on her underlying cardiovascular condition, pulmonary related based on concerns of a possible infectious disease etiology, as well as related to the patient discontinuing her diuretic therapy. At the present time she has required diuretic therapy and BiPAP support. She is diuresing. She appears to be tolerating BiPAP thus far. Her O2 saturation has increased. She will continue to be monitored. Her laboratory studies will be followed. Her examination and chest x-ray will be followed. She will continue medical management. This does include her IV diuretics. She will need follow-up of her BMP with respect to her electrolytes and renal function. She should be considered for further cardiovascular evaluation which would include a follow-up transthoracic echocardiogram to reassess her ventricular size, wall motion, systolic function, valvular heart disease, and hopefully estimate her right sided pressures. In the meantime she is being evaluated for any obvious infectious disease etiology that would contribute to her clinical course. 2. Atrial fibrillation Has a long-standing history of atrial fibrillation. She states she has gone through a DC cardioversion in the past which was unsuccessful. She has been treated with rate control and anticoagulant therapy. Moment her rate does appear to be reasonably well controlled. She will continue medical management for this as she is able. She will continue anticoagulant therapy. However depending upon her clinical course, if she requires further invasive evaluation or care, her anticoagulant therapy will need to be temporarily interrupted. 3. Tricuspid valve regurgitation This may be secondary to concerns of her pulmonary disease process and elevated pulmonary pressures. This will be reassessed with echocardiographic findings. 4. Hypertension She does have a history of underlying hypertension. She will continue medical management with adjustment as needed during her acute course. 5. Pulmonary hypertension This may be secondary to her history of obstructive sleep apnea superimposed upon her cardiovascular disease history. An attempt will be made to reassess this with an upcoming echocardiographic study. In the meantime she will continue medical management and support. 6. Obstructive sleep apnea And this may be a contributing factor to her underlying elevated pulmonary pressures, etc. She will continue evaluation care per internal medicine at this time. 7. Hypothyroidism She will continue evaluation care per internal medicine. This note was generated with [employer] Dictation software. Every effort was made to ensure accuracy, however, computerized it systems administrator mistakes may persist.
[2017-05-19] MEDS: Gabapentin 300 MG Capsule PO (16:43)
[2017-05-19] MEDS: dilTIAZem CD 180 MG Capsule PO (16:43)
[2017-05-19] MEDS: Ibuprofen 600 MG Tablet PO (16:45)
[2017-05-19] MEDS: Ipratropium/Albuterol Sulfate 3 ML AMPUL.NEB INHALATION (19:23)
[2017-05-19] MEDS: Nystatin Powder 15gm Bottle 1 APPLIC TOPICAL (22:48)
[2017-05-19] MEDS: 0.9% NaCl Peripheral Flush Adult/Peds IV (22:52)
[2017-05-20] VITALS (24 sets, daily range): BP systolic 105–121; BP diastolic 57–83; PULSE 77–104; RESP 10–25; TEMP 36.8–37.2; O2SAT 88–96
[2017-05-20] MEDS: Ipratropium/Albuterol Sulfate 3 ML AMPUL.NEB INHALATION ×4 (01:51→18:37)
[2017-05-20 03:26] LABS: Absolute Neutrophil Count 2.3 X10^3/uL (2.0-7.7); Basophil# 0.03 X10^3/uL; Basophil% 0.9 % (0-1); Eosinophil# 0.06 X10^3/uL; Eosinophils% 1.7 % (0-5); Hematocrit 32.9 % (37-47); Hemoglobin 10.5 g/dl (12.0-15.0); Lymphocyte % 23.1 % (19-41); Mean Corp Hgb Conc 31.9 g/gl (32-36); Mean Corpuscular Hgb 28.8 pg (27.0-32.0); Mean Corpuscular Volume 90.4 fL (81-99); Mean Platelet Vol. 12.2 fl (6.2-12.0); Monocyte# 0.28 X10^3/uL; Monocyte% 8.1 % (0-10); Neutrophil # 2.29 X10^3/uL (2.7-7.7); Neutrophil % 65.9 % (47-70); Platelet Count 164 K/mm3 (150-450); RBC Distribution Width CV 14.1 % (11.6-14.6); RBC Distribution Width SD 46.8 fl (35.1-43.9); Red Blood Count 3.64 M/mm3 (4.2-5.4); White Blood Count 3.5 K/mm3 (4.4-11.0)
[2017-05-20 03:31] LABS: POSITIVE COUNT NO; POSITIVE DIFFERENTIAL NO; POSITIVE MORPHOLOGY NO
[2017-05-20 03:48] LABS: Anion Gap 9 (5-15); BUN 20 mg/dL (7-18); Calcium,Total 8.5 mg/dL (8.5-10.1); Chloride 100 mmol/L (98-107); Creatinine, Serum 0.95 mg/dL (0.55-1.02); EST Glomerular Filtration Rate 65 mL/min (>60); Est Glom Filt Rate - Afr Amer 79 mL/min (>60); Estimated Creatinine Clearance 67.36 ml/min; Glucose 106 mg/dL (74-106); Potassium 3.3 mmol/L (3.5-5.1); Sodium Level 138 mmol/L (136-145)
--- NOTE | 2017-05-20 04:58 | RAD_ITS ---
STUDY: X-RAY CHEST REASON FOR EXAM: Female, 51 years old. CHF TECHNIQUE: Single AP portable view of the chest. COMPARISON: 05/19/2017. 07/13/2016. FINDINGS: There are superimposed monitor leads. Evaluation right hemidiaphragm and atelectatic changes right base. Post aeration since previous examination with decrease off pulmonary edema pattern which is asymmetric more pronounced in the right lung with relative sparing of the left upper lung as on previous exam. There is no demonstrated pleural abnormality. There is stable mild cardiac enlargement. Normal mediastinum and sen. Normal visualized pulmonary arteries. Normal visualized aortic arch and descending thoracic aorta. Obscured thoracic spine. Normal visualized ribs, clavicles, and shoulders. Obesity. RAD/Chest 1 View (Portable) IMPRESSION: Improved aeration with decrease of asymmetric pulmonary edema. Stable cardiomegaly, atelectasis right base and elevation of the right hemidiaphragm. Electronically Signed: Denise Sams MD at 6:06 EST , Service support ,
[2017-05-20] MEDS: Levothyroxine 50 MCG Tablet PO (05:00)
[2017-05-20] MEDS: Furosemide 40 MG/4 ML Vial IV ×3 (05:01→21:20)
[2017-05-20] MEDS: 0.9% NaCl Peripheral Flush Adult/Peds IV ×2 (05:10→10:17)
--- NOTE | 2017-05-20 07:52 | NURSING ---
RESPIRATORY THERAPY AWARE THAT PATIENT HAS BEEN TAKEN OFF OF BIPAP AND PLACED ON 6L NC PER DR. DUNHAM.
--- NOTE | 2017-05-20 07:53 | PCM.PROGNOTE ---
Patient Problems: Active and Suspected Problems Pulmonary edema (Acute) Subjective: Chief complaint: Follow-up after admission for acute hypoxic respiratory failure secondary to acute pulmonary edema, possible post viral pneumonitis also found to have hypokalemia. Patient seen and examined. No acute events overnight. She tolerated BiPAP overnight. She reported improvement of her shortness of breath. Still complaining of mild dry cough with no sputum production. Apart from hypoxia and being on BiPAP, other vital signs are stable. She is afebrile. - Physical Exam General: Alert, Oriented x3, Cooperative, No apparent distress, - HEENT: Atraumatic, PERRLA, EOMI Oral: Moist Mucosa, No Gingival or Mucosal Lesions/ Ulcerations Neck: Supple, No JVD, Negative Carotid Bruits, Trachea Midline, Thyroid Normal Size and Texture Lungs: No rhonchi, No wheeze, Diminished, Rales, - - Decreased breath sounds bilateral, bilateral basal crackles. Cardiovascular: Normal S1, Normal S2, No murmurs, PMI Normal, Irregular Rate Abdomen: Bowel Sounds Present, Soft, Non Tender, Non-Distended, No Hepato-splenomegaly Extremities: No clubbing, No cyanosis, Edema - Trace edema. Skin: No rashes, No breakdown Lymphatic: No Cervical, Supraclavicular, or Inguinal Adenopathy Neurological: Cranial nerves II-XII grossly intact, Neuro grossly intact Psych/Mental Status: Normal Affect, Appropriate Vital Signs Temp Pulse Resp BP Pulse Ox 98.6 F 86 20 H 118/67 93 05/20/17 04:51 05/20/17 07:12 05/20/17 04:51 05/20/17 04:51 05/20/17 04:51 Oxygen Flow Rate 5 Oxygen Delivery Method Bi-pap Weight: 294 lb 12.128 oz Body Mass Index (BMI) 46.9 Intake and Output for Last 24 Hours 05/18/17 05/19/17 05/20/17 23:59 23:59 23:59 Intake Total 391 / 391 350 / 350 Output Total 2300 / 2300 1200 / 1200 Balance -1909 / -1909 -850 / -850 Microbiology Past 72 Hours 05/19/17 14:50 Streptococcus pneumoniae Antigen (M - Final Urine Catheter - Kay 05/19/17 14:50 Legionella Antigen - Final Urine Catheter - Kay Laboratory Tests Past 24 Hrs 0205/19/17 05/19/17 14:20 14:50 16:38 WBC RBC Hgb Hct MCV MCH MCHC RDW RDW Differential Plt Count MPV Immature Gran % (Auto) Neut % (Auto) Lymph % (Auto) [place] % (Auto) Eos % (Auto) Baso % (Auto) Absolute Neuts (auto) Absolute Lymphs (auto) Total Counted PT 13.5 INR 1.1 Sodium Potassium Chloride Carbon Dioxide Anion Gap BUN Creatinine Estim Creat Clear Calc Est GFR (MDRD) Af Amer Est GFR (MDRD) Non-Af BUN/Creatinine Ratio Glucose Calcium Troponin I < 0.02 Urine Color Straw Urine Clarity Clear Urine pH 7.0 Ur Specific [place] 1.010 Urine Protein Negative Urine Glucose (UA) Normal Urine Ketones Negative Urine Occult Blood Negative Urine Nitrite Negative Urine Bilirubin Negative Urine Urobilinogen Normal Ur Leukocyte Esterase Negative Urine RBC 0-5 SEEN Urine WBC 0 SEEN Ur Squamous Epith Cells 0 SEEN Urine Bacteria 0 SEEN Urine Mucus 0 SEEN 05/19/17 05/20/17 05/20/17 20:30 02:50 02:50 WBC 3.5 L RBC 3.64 L Hgb 10.5 L Hct 32.9 L MCV 90.4 MCH 28.8 MCHC 31.9 L RDW 14.1 RDW Differential 46.8 H Plt Count 164 MPV 12.2 H Immature Gran % (Auto) 0.300 Neut % (Auto) 65.9 Lymph % (Auto) 23.1 [place] % (Auto) 8.1 Eos % (Auto) 1.7 Baso % (Auto) 0.9 Absolute Neuts (auto) 2.3 Absolute Lymphs (auto) 0.80 L Total Counted Not Reportable PT INR Sodium 138 Potassium 3.3 L Chloride 100 Carbon Dioxide 29.0 Anion Gap 9 BUN 20 H Creatinine 0.95 Estim Creat Clear Calc 67.36 Est GFR (MDRD) Af Amer 79 Est GFR (MDRD) Non-Af 65 BUN/Creatinine Ratio 21.0 H Glucose 106 Calcium 8.5 Troponin I < 0.02 Urine Color Urine Clarity Urine pH Ur Specific [place] Urine Protein Urine Glucose (UA) Urine Ketones Urine Occult Blood Urine Nitrite Urine Bilirubin Urine Urobilinogen Ur Leukocyte Esterase Urine RBC Urine WBC Ur Squamous Epith Cells Urine Bacteria Urine Mucus 05/20/17 02:50 WBC RBC Hgb Hct MCV MCH MCHC RDW RDW Differential Plt Count MPV Immature Gran % (Auto) Neut % (Auto) Lymph % (Auto) [place] % (Auto) Eos % (Auto) Baso % (Auto) Absolute Neuts (auto) Absolute Lymphs (auto) Total Counted PT INR Sodium Potassium Chloride Carbon Dioxide Anion Gap BUN Creatinine Estim Creat Clear Calc Est GFR (MDRD) Af Amer Est GFR (MDRD) Non-Af BUN/Creatinine Ratio Glucose Calcium Troponin I < 0.02 Urine Color Urine Clarity Urine pH Ur Specific [place] Urine Protein Urine Glucose (UA) Urine Ketones Urine Occult Blood Urine Nitrite Urine Bilirubin Urine Urobilinogen Ur Leukocyte Esterase Urine RBC Urine WBC Ur Squamous Epith Cells Urine Bacteria Urine Mucus Clinical Impression(s) from Imaging Studies Chest X-Ray 05/20/17 04:58 IMPRESSION: Improved aeration with decrease of asymmetric pulmonary edema. Stable cardiomegaly, atelectasis right base and elevation of the right hemidiaphragm. Electronically Signed: Denise Sams MD at 6:06 EST , Service support , Assessment/Plan Active and Suspected Problems Pulmonary edema (Acute) This is a 51 years old female patient presented to the emergency room because of 1 week history of shortness of breath preceded by flulike symptoms, found to have acute hypoxic respiratory failure attributed to acute pulmonary edema and possible bilateral postviral interstitial pneumonitis. #1 acute hypoxic respiratory failure: Attributed to acute pulmonary edema which could be due to acute and chronic CHF versus suspected interstitial pneumonitis. She is on IV Lasix for diuresis, on IV antibiotics and bronchodilators. She did report improvement of her symptoms, has been tolerating BiPAP overnight. Chest x-ray from today reviewed, showed improved areation of the lung parenchyma, vascular congestion is coming down. Cardiology consulted. 2D echocardiogram ordered. Plan: Trial of oxygen by nasal cannula this morning, continue same treatment, awaiting 2D echocardiogram. #2 acute pulmonary edema: She is on IV Lasix, continued on metoprolol. Chest x-ray from today reviewed as above. Tolerated BiPAP overnight. 2D echocardiogram ordered, to be done tomorrow. BMP from today revealed hypokalemia, she is on potassium replacement. Plan: Continue same treatment. #3 possible post viral interstitial pneumonitis: She is on empiric IV Levaquin. Pneumococcal and Legionella antigen were negative. Respiratory panel for viruses is pending. Plan to continue same treatment. #4 hypokalemia: She is on potassium supplement, potassium still low at 3.3 but slightly improved which is likely because of IV Lasix. Plan to continue potassium supplement, repeat BMP tomorrow morning. #5 chronic atrial fibrillation: Rate is stable, blood pressure stable, continue Cardizem and metoprolol for rate control, continue Eliquis for anticoagulant. #6 Hypertension: Blood pressure stable, continue metoprolol and Cardizem. #7 hypothyroidism: Continue levothyroxine. 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 Stable, no acute issues, no evidence of open wounds of the right lower extremity. #9 DVT prophylaxis: Continue Eliquis. Other chronic medical problems: #1 obstructive sleep apnea. Untreated. #2 depression. #3 pulmonary hypertension. #4 osteoarthritis. This note was generated with [employer] dictation software. It may contain incorrect words, spelling, and punctuation that were not noted in checking the note before signing. Code Visit Inpatient E&M: 44435 Subs Hosp L2
--- NOTE | 2017-05-20 08:00 | PN_ITS ---
Patient Problems: Active and Suspected Problems Pulmonary edema (Acute) Subjective: Chief complaint: Follow-up after admission for acute hypoxic respiratory failure secondary to acute pulmonary edema, possible post viral pneumonitis also found to have hypokalemia. Patient seen and examined. No acute events overnight. She tolerated BiPAP overnight. She reported improvement of her shortness of breath. Still complaining of mild dry cough with no sputum production. Apart from hypoxia and being on BiPAP, other vital signs are stable. She is afebrile. - Physical Exam General: Alert, Oriented x3, Cooperative, No apparent distress, - HEENT: Atraumatic, PERRLA, EOMI Oral: Moist Mucosa, No Gingival or Mucosal Lesions/ Ulcerations Neck: Supple, No JVD, Negative Carotid Bruits, Trachea Midline, Thyroid Normal Size and Texture Lungs: No rhonchi, No wheeze, Diminished, Rales, - - Decreased breath sounds bilateral, bilateral basal crackles. Cardiovascular: Normal S1, Normal S2, No murmurs, PMI Normal, Irregular Rate Abdomen: Bowel Sounds Present, Soft, Non Tender, Non-Distended, No Hepato- splenomegaly Extremities: No clubbing, No cyanosis, Edema - Trace edema. Skin: No rashes, No breakdown Lymphatic: No Cervical, Supraclavicular, or Inguinal Adenopathy Neurological: Cranial nerves II-XII grossly intact, Neuro grossly intact Psych/Mental Status: Normal Affect, Appropriate Vital Signs Temp Pulse Resp BP Pulse Ox 98.6 F 86 20 H 118/67 93 05/20/17 04:51 05/20/17 07:12 05/20/17 04:51 05/20/17 04:51 05/20/17 04:51 Oxygen Flow Rate 5 Oxygen Delivery Method Bi-pap Weight: 294 lb 12.128 oz Body Mass Index (BMI) 46.9 Intake and Output for Last 24 Hours 05/18/17 05/19/17 05/20/17 23:59 23:59 23:59 Intake Total 391 / 391 350 / 350 Output Total 2300 / 2300 1200 / 1200 Balance -1909 / -1909 -850 / -850 Microbiology Past 72 Hours 05/19/17 14:50 Streptococcus pneumoniae Antigen (M - Final Urine Catheter - Kay 05/19/17 14:50 Legionella Antigen - Final Urine Catheter - Kay Laboratory Tests Past 24 Hrs 0205/19/17 05/19/17 14:20 14:50 16:38 WBC RBC Hgb Hct MCV MCH MCHC RDW RDW Differential Plt Count MPV Immature Gran % (Auto) Neut % (Auto) Lymph % (Auto) [place] % (Auto) Eos % (Auto) Baso % (Auto) Absolute Neuts (auto) Absolute Lymphs (auto) Total Counted PT 13.5 INR 1.1 Sodium Potassium Chloride Carbon Dioxide Anion Gap BUN Creatinine Estim Creat Clear Calc Est GFR (MDRD) Af Amer Est GFR (MDRD) Non-Af BUN/Creatinine Ratio Glucose Calcium Troponin I < 0.02 Urine Color Straw Urine Clarity Clear Urine pH 7.0 Ur Specific [place] 1.010 Urine Protein Negative Urine Glucose (UA) Normal Urine Ketones Negative Urine Occult Blood Negative Urine Nitrite Negative Urine Bilirubin Negative Urine Urobilinogen Normal Ur Leukocyte Esterase Negative Urine RBC 0-5 SEEN Urine WBC 0 SEEN Ur Squamous Epith Cells 0 SEEN Urine Bacteria 0 SEEN Urine Mucus 0 SEEN 05/19/17 05/20/17 05/20/17 20:30 02:50 02:50 WBC 3.5 L RBC 3.64 L Hgb 10.5 L Hct 32.9 L MCV 90.4 MCH 28.8 MCHC 31.9 L RDW 14.1 RDW Differential 46.8 H Plt Count 164 MPV 12.2 H Immature Gran % (Auto) 0.300 Neut % (Auto) 65.9 Lymph % (Auto) 23.1 [place] % (Auto) 8.1 Eos % (Auto) 1.7 Baso % (Auto) 0.9 Absolute Neuts (auto) 2.3 Absolute Lymphs (auto) 0.80 L Total Counted Not Reportable PT INR Sodium 138 Potassium 3.3 L Chloride 100 Carbon Dioxide 29.0 Anion Gap 9 BUN 20 H Creatinine 0.95 Estim Creat Clear Calc 67.36 Est GFR (MDRD) Af Amer 79 Est GFR (MDRD) Non-Af 65 BUN/Creatinine Ratio 21.0 H Glucose 106 Calcium 8.5 Troponin I < 0.02 Urine Color Urine Clarity Urine pH Ur Specific [place] Urine Protein Urine Glucose (UA) Urine Ketones Urine Occult Blood Urine Nitrite Urine Bilirubin Urine Urobilinogen Ur Leukocyte Esterase Urine RBC Urine WBC Ur Squamous Epith Cells Urine Bacteria Urine Mucus 05/20/17 02:50 WBC RBC Hgb Hct MCV MCH MCHC RDW RDW Differential Plt Count MPV Immature Gran % (Auto) Neut % (Auto) Lymph % (Auto) [place] % (Auto) Eos % (Auto) Baso % (Auto) Absolute Neuts (auto) Absolute Lymphs (auto) Total Counted PT INR Sodium Potassium Chloride Carbon Dioxide Anion Gap BUN Creatinine Estim Creat Clear Calc Est GFR (MDRD) Af Amer Est GFR (MDRD) Non-Af BUN/Creatinine Ratio Glucose Calcium Troponin I < 0.02 Urine Color Urine Clarity Urine pH Ur Specific [place] Urine Protein Urine Glucose (UA) Urine Ketones Urine Occult Blood Urine Nitrite Urine Bilirubin Urine Urobilinogen Ur Leukocyte Esterase Urine RBC Urine WBC Ur Squamous Epith Cells Urine Bacteria Urine Mucus Clinical Impression(s) from Imaging Studies Chest X-Ray 05/20/17 04:58 IMPRESSION: Improved aeration with decrease of asymmetric pulmonary edema. Stable cardiomegaly, atelectasis right base and elevation of the right hemidiaphragm. Electronically Signed: Denise Sams MD at 6:06 EST , Service support , Assessment/Plan Active and Suspected Problems Pulmonary edema (Acute) This is a 51 years old female patient presented to the emergency room because of 1 week history of shortness of breath preceded by flulike symptoms, found to have acute hypoxic respiratory failure attributed to acute pulmonary edema and possible bilateral postviral interstitial pneumonitis. #1 acute hypoxic respiratory failure: Attributed to acute pulmonary edema which could be due to acute and chronic CHF versus suspected interstitial pneumonitis. She is on IV Lasix for diuresis, on IV antibiotics and bronchodilators. She did report improvement of her symptoms, has been tolerating BiPAP overnight. Chest x-ray from today reviewed, showed improved areation of the lung parenchyma, vascular congestion is coming down. Cardiology consulted. 2D echocardiogram ordered. Plan: Trial of oxygen by nasal cannula this morning, continue same treatment, awaiting 2D echocardiogram. #2 acute pulmonary edema: She is on IV Lasix, continued on metoprolol. Chest x- ray from today reviewed as above. Tolerated BiPAP overnight. 2D echocardiogram ordered, to be done tomorrow. BMP from today revealed hypokalemia, she is on potassium replacement. Plan: Continue same treatment. #3 possible post viral interstitial pneumonitis: She is on empiric IV Levaquin. Pneumococcal and Legionella antigen were negative. Respiratory panel for viruses is pending. Plan to continue same treatment. #4 hypokalemia: She is on potassium supplement, potassium still low at 3.3 but slightly improved which is likely because of IV Lasix. Plan to continue potassium supplement, repeat BMP tomorrow morning. #5 chronic atrial fibrillation: Rate is stable, blood pressure stable, continue Cardizem and metoprolol for rate control, continue Eliquis for anticoagulant. #6 Hypertension: Blood pressure stable, continue metoprolol and Cardizem. #7 hypothyroidism: Continue levothyroxine. 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 Stable, no acute issues, no evidence of open wounds of the right lower extremity. #9 DVT prophylaxis: Continue Eliquis. Other chronic medical problems: #1 obstructive sleep apnea. Untreated. #2 depression. #3 pulmonary hypertension. #4 osteoarthritis. This note was generated with [employer] dictation software. It may contain incorrect words, spelling, and punctuation that were not noted in checking the note before signing. Code Visit Inpatient E&M: 68167 Subs Hosp L2
--- NOTE | 2017-05-20 08:01 | CPS ---
0707...pt on Bipap with FIO2 at 35%, Pt increased to 40% due to sat 88% at previous FIO2.
[2017-05-20] MEDS: Gabapentin 300 MG Capsule PO ×3 (08:17→17:10)
[2017-05-20] MEDS: dilTIAZem CD 180 MG Capsule PO (10:13)
[2017-05-20] MEDS: APIXABAN 5 MG TABLET PO ×2 (10:13→21:19)
[2017-05-20] MEDS: Metoprolol Tartrate 50 MG Tablet PO ×2 (10:13→21:19)
[2017-05-20] MEDS: FLUoxetine 20 MG Capsule 60 MG PO (10:14)
[2017-05-20] MEDS: Nystatin Powder 15gm Bottle 1 APPLIC TOPICAL ×2 (10:14→21:20)
[2017-05-20] MEDS: Famotidine 20 MG Tablet PO ×2 (10:14→21:20)
[2017-05-20] MEDS: Ibuprofen 600 MG Tablet PO (10:15)
--- NOTE | 2017-05-20 13:07 | PCM.PN.CARD ---
Subjectve: The patient looks better and states she feels better today. She notes her breathing has improved. She is no longer requiring BiPAP therapy. Objective: Vital Signs Temp Pulse Resp BP Pulse Ox 98.3 F 93 18 121/71 H 96 05/20/17 10:06 05/20/17 11:06 05/20/17 10:06 05/20/17 10:13 05/20/17 11:41 Oxygen Flow Rate 4 Oxygen Delivery Method Nasal Cannula Weight: 294 lb 12.128 oz Body Mass Index (BMI) 46.9 Intake and Output for Last 24 Hours 05/18/17 05/19/17 05/20/17 23:59 23:59 23:59 Intake Total 391 / 391 723 / 723 Output Total 2300 / 2300 1850 / 1850 Balance -1909 / -1909 -1127 / -1127 General: Awake, Alert, Oriented x 3, Cooperative, No Acute Distress, Obese Lungs: Diminished [place] Bases Cardiovascular: Irregular Rhythm, Normal S1, Normal S2 Abdomen: Bowel Sounds Present, Soft, Non Tender Extremities: No edema 05/19/17 14:20: PT 13.5, INR 1.1 05/19/17 14:50: Urine Color Straw, Urine Clarity Clear, Urine pH 7.0, Ur Specific [place] 1.010, Urine Protein Negative, Urine Glucose (UA) Normal, Urine Ketones Negative, Urine Occult Blood Negative, Urine Nitrite Negative, Urine Bilirubin Negative, Urine Urobilinogen Normal, Ur Leukocyte Esterase Negative, Urine RBC 0-5 SEEN, Urine WBC 0 SEEN 05/19/17 16:38: Troponin I < 0.02 05/19/17 20:30: Troponin I < 0.02 05/20/17 02:50: WBC 3.5 L, RBC 3.64 L, Hgb 10.5 L, Hct 32.9 L, MCV 90.4, MCH 28.8, MCHC 31.9 L, RDW 14.1, RDW Differential 46.8 H, Plt Count 164, MPV 12.2 H, Immature Gran % (Auto) 0.300, Neut % (Auto) 65.9, Lymph % (Auto) 23.1, [place] % (Auto) 8.1, Eos % (Auto) 1.7, Baso % (Auto) 0.9, Absolute Neuts (auto) 2.3, Total Counted Not Reportable 05/20/17 02:50: Sodium 138, Potassium 3.3 L, Chloride 100, Carbon Dioxide 29.0, Anion Gap 9, BUN 20 H, Creatinine 0.95, Est GFR (MDRD) Af Amer 79, Est GFR (MDRD) Non-Af 65, BUN/Creatinine Ratio 21.0 H, Glucose 106, Calcium 8.5 05/20/17 02:50: Troponin I < 0.02 Rhythm: Atrial fibrillation X-ray: Preliminary evaluation: To the previous study the aforementioned right and left sided increased pulmonary vascularity/edema and/or infiltrate appears to have improved: Please see official report Assessment/Plan 1. Pulmonary edema The patient has findings compatible with pulmonary edema. It is unclear as to whether this is primarily cardiovascular related based on her underlying cardiovascular condition, pulmonary related based on concerns of a possible infectious disease etiology, as well as related to the patient discontinuing her diuretic therapy. The patient appears to improved status post oxygen therapy and IV diuresis. She is no longer requiring BiPAP therapy at this time. She will continue to be monitored. Her laboratory studies will be followed. She will continue medical management. This does include her IV diuretics. She will need follow-up of her BMP with respect to her electrolytes and renal function. She should be considered for further cardiovascular evaluation which would include a follow-up transthoracic echocardiogram to reassess her ventricular size, wall motion, systolic function, valvular heart disease, and hopefully estimate her right sided pressures. In the meantime she is being evaluated for any obvious infectious disease etiology that would contribute to her clinical course. 2. Atrial fibrillation Has a long-standing history of atrial fibrillation. She states she has gone through a DC cardioversion in the past which was unsuccessful. She has been treated with rate control and anticoagulant therapy. Moment her rate does appear to be reasonably well controlled. She will continue medical management for this as she is able. She will continue anticoagulant therapy. However depending upon her clinical course, if she requires further invasive evaluation or care, her anticoagulant therapy will need to be temporarily interrupted. 3. Tricuspid valve regurgitation This may be secondary to concerns of her pulmonary disease process and elevated pulmonary pressures. This will be reassessed with echocardiographic findings. 4. Hypertension She does have a history of underlying hypertension. She will continue medical management with adjustment as needed during her acute course. 5. Pulmonary hypertension This may be secondary to her history of obstructive sleep apnea superimposed upon her cardiovascular disease history. An attempt will be made to reassess this with an upcoming echocardiographic study. In the meantime she will continue medical management and support. 6. Obstructive sleep apnea And this may be a contributing factor to her underlying elevated pulmonary pressures, etc. She will continue evaluation care per internal medicine at this time. 7. Hypothyroidism She will continue evaluation care per internal medicine. Comment: The above was discussed and reviewed with Dr. Cuellar. This note was generated with [employer] software. Every effort was made to ensure accuracy, however, computerized printing machine mechanic mistakes may persist.
--- NOTE | 2017-05-20 13:10 | PN.CARD_ITS ---
Subjectve: The patient looks better and states she feels better today. She notes her breathing has improved. She is no longer requiring BiPAP therapy. Objective: Vital Signs Temp Pulse Resp BP Pulse Ox 98.3 F 93 18 121/71 H 96 05/20/17 10:06 05/20/17 11:06 05/20/17 10:06 05/20/17 10:13 05/20/17 11:41 Oxygen Flow Rate 4 Oxygen Delivery Method Nasal Cannula Weight: 294 lb 12.128 oz Body Mass Index (BMI) 46.9 Intake and Output for Last 24 Hours 05/18/17 05/19/17 05/20/17 23:59 23:59 23:59 Intake Total 391 / 391 723 / 723 Output Total 2300 / 2300 1850 / 1850 Balance -1909 / -1909 -1127 / -1127 General: Awake, Alert, Oriented x 3, Cooperative, No Acute Distress, Obese Lungs: Diminished Dontae Bases Cardiovascular: Irregular Rhythm, Normal S1, Normal S2 Abdomen: Bowel Sounds Present, Soft, Non Tender Extremities: No edema 05/19/17 14:20: PT 13.5, INR 1.1 05/19/17 14:50: Urine Color Straw, Urine Clarity Clear, Urine pH 7.0, Ur Specific [place] 1.010, Urine Protein Negative, Urine Glucose (UA) Normal, Urine Ketones Negative, Urine Occult Blood Negative, Urine Nitrite Negative, Urine Bilirubin Negative, Urine Urobilinogen Normal, Ur Leukocyte Esterase Negative, Urine RBC 0-5 SEEN, Urine WBC 0 SEEN 05/19/17 16:38: Troponin I < 0.02 05/19/17 20:30: Troponin I < 0.02 05/20/17 02:50: WBC 3.5 L, RBC 3.64 L, Hgb 10.5 L, Hct 32.9 L, MCV 90.4, MCH 28.8, MCHC 31.9 L, RDW 14.1, RDW Differential 46.8 H, Plt Count 164, MPV 12.2 H , Immature Gran % (Auto) 0.300, Neut % (Auto) 65.9, Lymph % (Auto) 23.1, [facility] % (Auto) 8.1, Eos % (Auto) 1.7, Baso % (Auto) 0.9, Absolute Neuts (auto) 2.3, Total Counted Not Reportable 05/20/17 02:50: Sodium 138, Potassium 3.3 L, Chloride 100, Carbon Dioxide 29.0, Anion Gap 9, BUN 20 H, Creatinine 0.95, Est GFR (MDRD) Af Amer 79, Est GFR (MDRD ) Non-Af 65, BUN/Creatinine Ratio 21.0 H, Glucose 106, Calcium 8.5 05/20/17 02:50: Troponin I < 0.02 Rhythm: Atrial fibrillation X-ray: Preliminary evaluation: To the previous study the aforementioned right and left sided increased pulmonary vascularity/edema and/or infiltrate appears to have improved: Please see official report Assessment/Plan 1. Pulmonary edema The patient has findings compatible with pulmonary edema. It is unclear as to whether this is primarily cardiovascular related based on her underlying cardiovascular condition, pulmonary related based on concerns of a possible infectious disease etiology, as well as related to the patient discontinuing her diuretic therapy. The patient appears to improved status post oxygen therapy and IV diuresis. She is no longer requiring BiPAP therapy at this time. She will continue to be monitored. Her laboratory studies will be followed. She will continue medical management. This does include her IV diuretics. She will need follow-up of her BMP with respect to her electrolytes and renal function. She should be considered for further cardiovascular evaluation which would include a follow-up transthoracic echocardiogram to reassess her ventricular size, wall motion, systolic function, valvular heart disease, and hopefully estimate her right sided pressures. In the meantime she is being evaluated for any obvious infectious disease etiology that would contribute to her clinical course. 2. Atrial fibrillation Has a long-standing history of atrial fibrillation. She states she has gone through a DC cardioversion in the past which was unsuccessful. She has been treated with rate control and anticoagulant therapy. Moment her rate does appear to be reasonably well controlled. She will continue medical management for this as she is able. She will continue anticoagulant therapy. However depending upon her clinical course, if she requires further invasive evaluation or care, her anticoagulant therapy will need to be temporarily interrupted. 3. Tricuspid valve regurgitation This may be secondary to concerns of her pulmonary disease process and elevated pulmonary pressures. This will be reassessed with echocardiographic findings. 4. Hypertension She does have a history of underlying hypertension. She will continue medical management with adjustment as needed during her acute course. 5. Pulmonary hypertension This may be secondary to her history of obstructive sleep apnea superimposed upon her cardiovascular disease history. An attempt will be made to reassess this with an upcoming echocardiographic study. In the meantime she will continue medical management and support. 6. Obstructive sleep apnea And this may be a contributing factor to her underlying elevated pulmonary pressures, etc. She will continue evaluation care per internal medicine at this time. 7. Hypothyroidism She will continue evaluation care per internal medicine. Comment: The above was discussed and reviewed with Dr. Cuellar. This note was generated with [employer] software. Every effort was made to ensure accuracy, however, computerized land inspector mistakes may persist.
[2017-05-21] VITALS (20 sets, daily range): BP systolic 97–129; BP diastolic 67–85; PULSE 84–107; RESP 18–22; TEMP 36.4–37; O2SAT 91–97
[2017-05-21 06:23] LABS: Anion Gap 10 (5-15); BUN 27 mg/dL (7-18); BUN/Creat Ratio 25.5 RATIO (10-20); Calcium,Total 9.1 mg/dL (8.5-10.1); Chloride 101 mmol/L (98-107); Creatinine, Serum 1.06 mg/dL (0.55-1.02); EST Glomerular Filtration Rate 58 mL/min (>60); Est Glom Filt Rate - Afr Amer 70 mL/min (>60); Estimated Creatinine Clearance 60.37 ml/min; Glucose 111 mg/dL (74-106); Potassium 3.9 mmol/L (3.5-5.1); Sodium Level 140 mmol/L (136-145)
[2017-05-21] MEDS: Furosemide 40 MG/4 ML Vial IV ×2 (06:29→21:29)
[2017-05-21] MEDS: Levothyroxine 50 MCG Tablet PO (06:29)
[2017-05-21] MEDS: Ipratropium/Albuterol Sulfate 3 ML AMPUL.NEB INHALATION ×2 (06:45→19:25)
[2017-05-21] MEDS: Famotidine 20 MG Tablet PO ×2 (09:37→21:29)
[2017-05-21] MEDS: Gabapentin 300 MG Capsule PO ×3 (09:38→17:30)
[2017-05-21] MEDS: FLUoxetine 20 MG Capsule 60 MG PO (09:43)
[2017-05-21] MEDS: APIXABAN 5 MG TABLET PO ×2 (09:55→21:29)
[2017-05-21] MEDS: Nystatin Powder 15gm Bottle 1 APPLIC TOPICAL ×2 (09:57→21:30)
[2017-05-21] MEDS: Metoprolol Tartrate 50 MG Tablet PO ×2 (10:53→21:29)
--- NOTE | 2017-05-21 14:06 | PCM.PN.HOSP ---
Patient Problems: Active and Suspected Problems Pulmonary edema (Acute) Subjective: Patient is admitted for acute hypoxic respiratory failure secondary to acute pulmonary edema, viral pneumonitis and hypokalemia. Patient had echo in the morning. Vitals/I&O's: Vital Signs Temp Pulse Resp BP Pulse Ox 97.6 F L 90 20 H 119/76 91 05/21/17 11:16 05/21/17 11:16 05/21/17 11:16 05/21/17 11:16 05/21/17 11:16 Oxygen Flow Rate 3 Oxygen Delivery Method Nasal Cannula Weight: 291 lb 3.69 oz Body Mass Index (BMI) 46.9 Intake and Output for Last 24 Hours 05/19/17 05/20/17 05/21/17 23:59 23:59 23:59 Intake Total 391 / 391 1503 / 1503 Output Total 2300 / 2300 3650 / 3650 600 / 600 Balance -1909 / -1909 -2147 / -2147 -600 / -600 General: Alert, Oriented x3, Cooperative HEENT: Atraumatic, PERRLA, EOMI, Normocephalic Neck: Supple, No JVD, Negative Carotid Bruits Lungs: No rhonchi, No wheeze, Diminished, Rales Cardiovascular: Normal S1, Normal S2, No murmurs, Irregular Rate - Heart rate in 90s Abdomen: Bowel Sounds Present, Soft, Non Tender, Non-Distended Extremities: Capillary Refill Less than 3 Seconds, Edema Skin: No rashes, No breakdown Musculoskeletal: No Tenderness to Palpation of Joints or Extremities Neurological: Cranial nerves II-XII grossly intact Psych/Mental Status: Normal Affect, Appropriate Microbiology Past 72 Hours 05/19/17 14:50 Urine Catheter - Kay Urine Culture - Preliminary Culture exhibits no growth. 05/19/17 16:03 Mucosa - Nose Respiratory Panel (PCR) - Final [facility] [place] 05/19/17 14:50 Urine Catheter - Kay Streptococcus pneumoniae Antigen (M - Final 05/19/17 14:50 Urine Catheter - Kay Legionella Antigen - Final Laboratory Results 05/21/17 05:15: Sodium 140, Potassium 3.9, Chloride 101, Carbon Dioxide 29.0, Anion Gap 10, BUN 27 H, Creatinine 1.06 H, Estim Creat Clear Calc 60.37, Est GFR (MDRD) Af Amer 70, Est GFR (MDRD) Non-Af 58 L, BUN/Creatinine Ratio 25.5 H, Glucose 111 H, Calcium 9.1 Current Medications Acetaminophen (Tylenol) 650 mg PO Q6H PRN PRN PRN Reason: Fever, pain, headache. Albuterol/Ipratropium (Duoneb) 3 ml INHALATION Q6H.RT [facility] Last Admin: 05/21/17 13:16 Dose: Not Given Apixaban (Eliquis) 5 mg PO BID [facility] Last Admin: 05/21/17 09:55 Dose: 5 mg Diltiazem HCl (Cardizem Cd) 180 mg PO DAILY [facility] Last Admin: 05/21/17 11:06 Dose: Not Given Famotidine (Pepcid) 20 mg PO BID [facility] Last Admin: 05/21/17 09:37 Dose: 20 mg Fluoxetine HCl (Prozac) 60 mg PO DAILY [facility] Last Admin: 05/21/17 09:43 Dose: 60 mg Furosemide (Lasix) 40 mg IV Q12 [facility] Gabapentin (Neurontin) 300 mg PO TIDCM [facility] Last Admin: 05/21/17 12:47 Dose: 300 mg Levofloxacin (Levaquin) 750 mg in 150 mls @ 100 mls/hr IV Q24 [facility] Last Admin: 05/21/17 08:45 Dose: 100 mls/hr Ibuprofen (Motrin) 600 mg PO 4X/DAY PRN PRN PRN Reason: JOINT PAIN Last Admin: 05/20/17 10:15 Dose: 600 mg Levothyroxine Sodium (Synthroid) 50 mcg PO DAILY@0600 [facility] Last Admin: 05/21/17 06:29 Dose: 50 mcg Metoprolol Tartrate (Lopressor (Beta Altagracia)) 50 mg PO BID [facility] Last Admin: 05/21/17 10:53 Dose: 50 mg Nystatin (Mycostatin Powder) 1 applic TOPICAL BID [facility] PRN Reason: Protocol Last Admin: 05/21/17 09:57 Dose: 1 applicatio Ondansetron HCl (Zofran) 4 mg IV Q8H PRN PRN PRN Reason: NAUSEA/VOMITING Pot[facility] Last Admin: 05/21/17 09:37 Dose: 40 meq Sodium Chloride () 5 - 30 ml IV UD PRN PRN Reason: SALINE FLUSH Last Admin: 05/20/17 10:17 Dose: 10 ml Assessment/Plan Active and Suspected Problems Pulmonary edema (Acute) This is a 51 years old female patient presented to the emergency room because of 1 week history of shortness of breath preceded by flulike symptoms, found to have acute hypoxic respiratory failure attributed to acute pulmonary edema and possible bilateral postviral interstitial pneumonitis. #1 acute hypoxic respiratory failure: Most probably due to acute pulmonary edema secondary to acute and chronic CHF versus suspected interstitial pneumonitis. She is on IV Lasix for diuresis, on IV antibiotics and bronchodilators. She was on BiPAP previously but slept without BiPAP yesterday night.Chest x-ray reviewed, showed improved areation of the lung parenchyma, vascular congestion is coming down. Cardiology consult reviewed. IV Lasix decreased from 40 mg every 8 hourly to every 12 hourly. Patient had net -2 L fluid balance in last 2 days. 2D echo reviewed and shows EF 50% with no regional wall motion abnormalities. Normal LV size. LA moderately enlarged, right atrium moderately enlarged. Normal RV size and systolic function. Mild TR, PASP 34 mmHg suggestive of mild pulmonary hypertension. Normal aortic valve. #2 acute pulmonary edema: She is on IV Lasix, continued on metoprolol. Plan: Continue same treatment. Creatinine slightly went up from 0.76-1. Patient is tolerating the diuretics good. #3 possible post viral interstitial pneumonitis: She is on empiric IV Levaquin. Pneumococcal and Legionella antigen were negative. Respiratory panel shows Human Metapneumo virus. Plan to continue symptomatic treatment. #4 hypokalemia: She is on potassium supplement, potassium still low at 3.3 but slightly improved which is likely because of IV Lasix. Plan to continue potassium supplement, repeat BMP tomorrow morning. Patient has been afebrile for 48 hours. #5 chronic atrial fibrillation: Rate is stable, blood pressure stable, continue Cardizem and metoprolol for rate control, continue Eliquis for anticoagulant. #6 Hypertension: Blood pressure stable, continue metoprolol and Cardizem. #7 hypothyroidism: Continue levothyroxine. 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 Stable, no acute issues, no evidence of open wounds of the right lower extremity. #9 DVT prophylaxis: Continue Eliquis. Other chronic medical problems: #1 obstructive sleep apnea. Untreated. #2 depression. #3 pulmonary hypertension. #4 osteoarthritis. Microbiology Past 72 Hours 05/19/17 14:50 Urine Catheter - Kay Urine Culture - Preliminary Culture exhibits no growth. 05/19/17 16:03 Mucosa - Nose Respiratory Panel (PCR) - Final [facility] [place] 05/19/17 14:50 Urine Catheter - Kay Streptococcus pneumoniae Antigen (M - Final 05/19/17 14:50 Urine Catheter - Kay Legionella Antigen - Final Laboratory Results 05/21/17 05:15: Sodium 140, Potassium 3.9, Chloride 101, Carbon Dioxide 29.0, Anion Gap 10, BUN 27 H, Creatinine 1.06 H, Estim Creat Clear Calc 60.37, Est GFR (MDRD) Af Amer 70, Est GFR (MDRD) Non-Af 58 L, BUN/Creatinine Ratio 25.5 H, Glucose 111 H, Calcium 9.1 Code Visit Inpatient E&M: 70844 Subs Hosp L3
--- NOTE | 2017-05-21 14:23 | PN_ITS ---
Patient Problems: Active and Suspected Problems Pulmonary edema (Acute) Subjective: Patient is admitted for acute hypoxic respiratory failure secondary to acute pulmonary edema, viral pneumonitis and hypokalemia. Patient had echo in the morning. Vitals/I&O's: Vital Signs Temp Pulse Resp BP Pulse Ox 97.6 F L 90 20 H 119/76 91 05/21/17 11:16 05/21/17 11:16 05/21/17 11:16 05/21/17 11:16 05/21/17 11:16 Oxygen Flow Rate 3 Oxygen Delivery Method Nasal Cannula Weight: 291 lb 3.69 oz Body Mass Index (BMI) 46.9 Intake and Output for Last 24 Hours 05/19/17 05/20/17 05/21/17 23:59 23:59 23:59 Intake Total 391 / 391 1503 / 1503 Output Total 2300 / 2300 3650 / 3650 600 / 600 Balance -1909 / -1909 -2147 / -2147 -600 / -600 General: Alert, Oriented x3, Cooperative HEENT: Atraumatic, PERRLA, EOMI, Normocephalic Neck: Supple, No JVD, Negative Carotid Bruits Lungs: No rhonchi, No wheeze, Diminished, Rales Cardiovascular: Normal S1, Normal S2, No murmurs, Irregular Rate - Heart rate in 90s Abdomen: Bowel Sounds Present, Soft, Non Tender, Non-Distended Extremities: Capillary Refill Less than 3 Seconds, Edema Skin: No rashes, No breakdown Musculoskeletal: No Tenderness to Palpation of Joints or Extremities Neurological: Cranial nerves II-XII grossly intact Psych/Mental Status: Normal Affect, Appropriate Microbiology Past 72 Hours 05/19/17 14:50 Urine Catheter - Kay Urine Culture - Preliminary Culture exhibits no growth. 05/19/17 16:03 Mucosa - Nose Respiratory Panel (PCR) - Final [facility] [place] 05/19/17 14:50 Urine Catheter - Kay Streptococcus pneumoniae Antigen (M - Final 05/19/17 14:50 Urine Catheter - Kay Legionella Antigen - Final Laboratory Results 05/21/17 05:15: Sodium 140, Potassium 3.9, Chloride 101, Carbon Dioxide 29.0, Anion Gap 10, BUN 27 H, Creatinine 1.06 H, Estim Creat Clear Calc 60.37, Est GFR (MDRD) Af Amer 70, Est GFR (MDRD) Non-Af 58 L, BUN/Creatinine Ratio 25.5 H, Glucose 111 H, Calcium 9.1 Current Medications Acetaminophen (Tylenol) 650 mg PO Q6H PRN PRN PRN Reason: Fever, pain, headache. Albuterol/Ipratropium (Duoneb) 3 ml INHALATION Q6H.RT [facility] Last Admin: 05/21/17 13:16 Dose: Not Given Apixaban (Eliquis) 5 mg PO BID [facility] Last Admin: 05/21/17 09:55 Dose: 5 mg Diltiazem HCl (Cardizem Cd) 180 mg PO DAILY [facility] Last Admin: 05/21/17 11:06 Dose: Not Given Famotidine (Pepcid) 20 mg PO BID [facility] Last Admin: 05/21/17 09:37 Dose: 20 mg Fluoxetine HCl (Prozac) 60 mg PO DAILY [facility] Last Admin: 05/21/17 09:43 Dose: 60 mg Furosemide (Lasix) 40 mg IV Q12 [facility] Gabapentin (Neurontin) 300 mg PO TIDCM [facility] Last Admin: 05/21/17 12:47 Dose: 300 mg Levofloxacin (Levaquin) 750 mg in 150 mls @ 100 mls/hr IV Q24 [facility] Last Admin: 05/21/17 08:45 Dose: 100 mls/hr Ibuprofen (Motrin) 600 mg PO 4X/DAY PRN PRN PRN Reason: JOINT PAIN Last Admin: 05/20/17 10:15 Dose: 600 mg Levothyroxine Sodium (Synthroid) 50 mcg PO DAILY@0600 [facility] Last Admin: 05/21/17 06:29 Dose: 50 mcg Metoprolol Tartrate (Lopressor (Beta Altagracia)) 50 mg PO BID [facility] Last Admin: 05/21/17 10:53 Dose: 50 mg Nystatin (Mycostatin Powder) 1 applic TOPICAL BID [facility] PRN Reason: Protocol Last Admin: 05/21/17 09:57 Dose: 1 applicatio Ondansetron HCl (Zofran) 4 mg IV Q8H PRN PRN PRN Reason: NAUSEA/VOMITING Pot[facility] Last Admin: 05/21/17 09:37 Dose: 40 meq Sodium Chloride () 5 - 30 ml IV UD PRN PRN Reason: SALINE FLUSH Last Admin: 05/20/17 10:17 Dose: 10 ml Assessment/Plan Active and Suspected Problems Pulmonary edema (Acute) This is a 51 years old female patient presented to the emergency room because of 1 week history of shortness of breath preceded by flulike symptoms, found to have acute hypoxic respiratory failure attributed to acute pulmonary edema and possible bilateral postviral interstitial pneumonitis. #1 acute hypoxic respiratory failure: Most probably due to acute pulmonary edema secondary to acute and chronic CHF versus suspected interstitial pneumonitis. She is on IV Lasix for diuresis, on IV antibiotics and bronchodilators. She was on BiPAP previously but slept without BiPAP yesterday night.Chest x-ray reviewed, showed improved areation of the lung parenchyma, vascular congestion is coming down. Cardiology consult reviewed. IV Lasix decreased from 40 mg every 8 hourly to every 12 hourly. Patient had net -2 L fluid balance in last 2 days. 2D echo reviewed and shows EF 50% with no regional wall motion abnormalities. Normal LV size. LA moderately enlarged, right atrium moderately enlarged. Normal RV size and systolic function. Mild TR, PASP 34 mmHg suggestive of mild pulmonary hypertension. Normal aortic valve. #2 acute pulmonary edema: She is on IV Lasix, continued on metoprolol. Plan: Continue same treatment. Creatinine slightly went up from 0.76-1. Patient is tolerating the diuretics good. #3 possible post viral interstitial pneumonitis: She is on empiric IV Levaquin. Pneumococcal and Legionella antigen were negative. Respiratory panel shows Human Metapneumo virus. Plan to continue symptomatic treatment. #4 hypokalemia: She is on potassium supplement, potassium still low at 3.3 but slightly improved which is likely because of IV Lasix. Plan to continue potassium supplement, repeat BMP tomorrow morning. Patient has been afebrile for 48 hours. #5 chronic atrial fibrillation: Rate is stable, blood pressure stable, continue Cardizem and metoprolol for rate control, continue Eliquis for anticoagulant. #6 Hypertension: Blood pressure stable, continue metoprolol and Cardizem. #7 hypothyroidism: Continue levothyroxine. 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 Stable, no acute issues, no evidence of open wounds of the right lower extremity. #9 DVT prophylaxis: Continue Eliquis. Other chronic medical problems: #1 obstructive sleep apnea. Untreated. #2 depression. #3 pulmonary hypertension. #4 osteoarthritis. Microbiology Past 72 Hours 05/19/17 14:50 Urine Catheter - Kay Urine Culture - Preliminary Culture exhibits no growth. 05/19/17 16:03 Mucosa - Nose Respiratory Panel (PCR) - Final [facility] [place] 05/19/17 14:50 Urine Catheter - Kay Streptococcus pneumoniae Antigen (M - Final 05/19/17 14:50 Urine Catheter - Aky Legionella Antigen - Final Laboratory Results 05/21/17 05:15: Sodium 140, Potassium 3.9, Chloride 101, Carbon Dioxide 29.0, Anion Gap 10, BUN 27 H, Creatinine 1.06 H, Estim Creat Clear Calc 60.37, Est GFR (MDRD) Af Amer 70, Est GFR (MDRD) Non-Af 58 L, BUN/Creatinine Ratio 25.5 H, Glucose 111 H, Calcium 9.1 Code Visit Inpatient E&M: 48735 Subs Hosp L3
[2017-05-21] MEDS: 0.9% NaCl Peripheral Flush Adult/Peds IV ×2 (17:32→21:29)
[2017-05-21] MEDS: Ibuprofen 600 MG Tablet PO (21:29)
[2017-05-22] VITALS (16 sets, daily range): BP systolic 92–117; BP diastolic 69–74; PULSE 82–108; RESP 16–20; TEMP 35.6–36.9; O2SAT 94–97
[2017-05-22] MEDS: Levothyroxine 50 MCG Tablet PO (06:15)
[2017-05-22] MEDS: Ipratropium/Albuterol Sulfate 3 ML AMPUL.NEB INHALATION ×3 (07:16→19:43)
[2017-05-22] MEDS: Gabapentin 300 MG Capsule PO ×3 (08:29→16:44)
[2017-05-22] MEDS: FLUoxetine 20 MG Capsule 60 MG PO (10:27)
[2017-05-22] MEDS: Metoprolol Tartrate 50 MG Tablet PO ×2 (10:27→21:23)
[2017-05-22] MEDS: Famotidine 20 MG Tablet PO ×2 (10:27→21:23)
[2017-05-22] MEDS: APIXABAN 5 MG TABLET PO ×2 (10:28→21:23)
[2017-05-22] MEDS: Furosemide 40 MG/4 ML Vial IV (10:29)
[2017-05-22] MEDS: Nystatin Powder 15gm Bottle 1 APPLIC TOPICAL ×2 (10:29→21:23)
[2017-05-22] MEDS: 0.9% NaCl Peripheral Flush Adult/Peds IV ×2 (10:35→12:22)
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
[2017-05-23] VITALS (9 sets, daily range): BP systolic 105–115; BP diastolic 54–74; PULSE 82–96; RESP 16–18; TEMP 36.6–36.7; O2SAT 88–95
--- NOTE | 2017-05-23 03:08 | CPS ---
Pt refused to wear BiPAP overnight.
[2017-05-23 05:41] LABS: Absolute Lymphocyte Count 1.19 X10^3/ul (0.83-4.51); Absolute Neutrophil Count 2.5 X10^3/uL (2.0-7.7); Basophil# 0.06 X10^3/uL; Basophil% 1.4 % (0-1); Eosinophil# 0.14 X10^3/uL; Eosinophils% 3.2 % (0-5); Hematocrit 34.1 % (37-47); Hemoglobin 10.7 g/dl (12.0-15.0); Lymphocyte # 1.19 X10^3/ul (4.0); Lymphocyte % 27.2 % (19-41); Mean Corp Hgb Conc 31.4 g/gl (32-36); Mean Corpuscular Hgb 28.7 pg (27.0-32.0); Mean Corpuscular Volume 91.4 fL (81-99); Mean Platelet Vol. 11.5 fl (6.2-12.0); Monocyte% 9.2 % (0-10); Neutrophil # 2.52 X10^3/uL (2.7-7.7); Neutrophil % 57.6 % (47-70); POSITIVE COUNT NO; POSITIVE DIFFERENTIAL NO; POSITIVE MORPHOLOGY NO; Platelet Count 251 K/mm3 (150-450); RBC Distribution Width CV 14.1 % (11.6-14.6); Red Blood Count 3.73 M/mm3 (4.2-5.4); White Blood Count 4.4 K/mm3 (4.4-11.0)
[2017-05-23] MEDS: Sodium Chloride 0.65% 1 SPRAY SPRAY.BTL NASAL (05:48)
[2017-05-23] MEDS: Levothyroxine 50 MCG Tablet PO (05:48)
[2017-05-23 06:14] LABS: Anion Gap 7 (5-15); BUN 37 mg/dL (7-18); BUN/Creat Ratio 36.3 RATIO (10-20); Calcium,Total 8.8 mg/dL (8.5-10.1); Chloride 102 mmol/L (98-107); Creatinine, Serum 1.02 mg/dL (0.55-1.02); EST Glomerular Filtration Rate 60 mL/min (>60); Est Glom Filt Rate - Afr Amer 73 mL/min (>60); Estimated Creatinine Clearance 62.74 ml/min; Glucose 104 mg/dL (74-106); Potassium 3.9 mmol/L (3.5-5.1); Sodium Level 139 mmol/L (136-145)
[2017-05-23] MEDS: Ipratropium/Albuterol Sulfate 3 ML AMPUL.NEB INHALATION (06:59)
[2017-05-23] MEDS: Furosemide 40 MG/4 ML Vial IV (08:01)
[2017-05-23] MEDS: Gabapentin 300 MG Capsule PO ×2 (08:01→11:29)
[2017-05-23] MEDS: 0.9% NaCl Peripheral Flush Adult/Peds IV ×2 (08:01→10:15)
[2017-05-23] MEDS: Metoprolol Tartrate 50 MG Tablet PO (10:12)
[2017-05-23] MEDS: Famotidine 20 MG Tablet PO (10:13)
[2017-05-23] MEDS: FLUoxetine 20 MG Capsule 60 MG PO (10:13)
[2017-05-23] MEDS: APIXABAN 5 MG TABLET PO (10:13)
[2017-05-23] MEDS: Nystatin Powder 15gm Bottle 1 APPLIC TOPICAL (10:17)
--- NOTE | 2017-05-23 10:54 | PCM.DC ---
- Discharge Diagnoses Current Active Problems: Current Active and Chronic Problems Pulmonary edema (Acute) Tricuspid valve disorder (Chronic) You will use the following diet at home:: Cardiac, Fluid restricted (specify 2000 mls, 1500 mls) - 1800 ML/DAY Discharge Activity: May not drive while taking narcotic pain medications. Allergies/Adverse Reactions: Allergies No Known Allergies Allergy (Verified 04/27/17 11:12) Medications to take at Discharge Fluoxetine [Prozac] 60 mg PO DAILY 07/05/15 Ranitidine [Zantac] 150 mg PO BID 07/05/15 Metoprolol Tartrate [Lopressor (beta miriam)] 50 mg PO BID 05/16/16 Apixaban [Eliquis] 5 mg PO BID #0 tab 05/23/16 gabapentin 100 mg capsule 300 mg PO TID 30 Days #60 04/27/17 levothyroxine 50 mcg tablet 50 mcg PO DAILY 30 Days #30 04/27/17 oxaprozin 600 mg tablet 600 mg PO BID 30 Days #60 04/27/17 Diltiazem HCl [Tiazac] 180 mg PO DAILY 05/19/17 Albuterol Inhaler [Ventolin Hfa] 2 puff INHALATION Q4H PRN PRN #1 inhaler 05/23/17 Furosemide [Lasix] 40 mg PO BIDCM #0 05/23/17 Nystatin Powder [Mycostatin Powder] 1 applic TOPICAL BID bottle 05/23/17 Potassium Chloride [K-Dur] 40 meq PO BIDCM #30 tab 05/23/17 Sodium Chloride 0.65% [[place] Nasal [place]] 1 spray NASAL TID PRN PRN spray.btl 05/23/17 The following prescriptions were given: Albuterol Inhaler [Ventolin Hfa] 2 puff INHALATION Q4H PRN PRN #1 inhaler PRN Reason: Sob &/Or Wheezing Potassium Chloride [K-Dur] 40 meq PO BIDCM #30 tab Primary Care Physician: Nabor Garcia Chi, MD [Primary Care Provider] - Please Follow Up With: Nabor Garcia Chi, MD When: 1 WEEK Please Follow Up With: Andrew Espinal MD When: in 3-4 weeks for F/U for event monitor Please Follow Up With: Jose Bravo MD When: 4 weeks for outpatient PFT for pneumonitis and on 2 L of oxygen
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
--- NOTE | 2017-05-23 10:57 | DCINST_ITS ---
- Discharge Diagnoses Current Active Problems: Current Active and Chronic Problems Pulmonary edema (Acute) Tricuspid valve disorder (Chronic) You will use the following diet at home:: Cardiac, Fluid restricted (specify 2000 mls, 1500 mls) - 1800 ML/DAY Discharge Activity: May not drive while taking narcotic pain medications. Allergies/Adverse Reactions: Allergies No Known Allergies Allergy (Verified 04/27/17 11:12) Medications to take at Discharge Fluoxetine [Prozac] 60 mg PO DAILY 07/05/15 Ranitidine [Zantac] 150 mg PO BID 07/05/15 Metoprolol Tartrate [Lopressor (beta miriam)] 50 mg PO BID 05/16/16 Apixaban [Eliquis] 5 mg PO BID #0 tab 05/23/16 gabapentin 100 mg capsule 300 mg PO TID 30 Days #60 04/27/17 levothyroxine 50 mcg tablet 50 mcg PO DAILY 30 Days #30 04/27/17 oxaprozin 600 mg tablet 600 mg PO BID 30 Days #60 04/27/17 Diltiazem HCl [Tiazac] 180 mg PO DAILY 05/19/17 Albuterol Inhaler [Ventolin Hfa] 2 puff INHALATION Q4H PRN PRN #1 inhaler Furosemide [Lasix] 40 mg PO BIDCM #0 05/23/17 Nystatin Powder [Mycostatin Powder] 1 applic TOPICAL BID bottle 05/23/17 Potassium Chloride [K-Dur] 40 meq PO BIDCM #30 tab 05/23/17 Sodium Chloride 0.65% [[place] Nasal [place]] 1 spray NASAL TID PRN PRN spray.btl 05/23/17 The following prescriptions were given: Albuterol Inhaler [Ventolin Hfa] 2 puff INHALATION Q4H PRN PRN #1 inhaler PRN Reason: Sob &/Or Wheezing Potassium Chloride [K-Dur] 40 meq PO BIDCM #30 tab Primary Care Physician: Nabor Garcia Chi, MD [Primary Care Provider] - Please Follow Up With: Nabor Garcia Chi, MD When: 1 WEEK Please Follow Up With: Andrew Espinal MD When: in 3-4 weeks for F/U for event monitor Please Follow Up With: Jose Bravo MD When: 4 weeks for outpatient PFT for pneumonitis and on 2 L of oxygen
--- NOTE | 2017-05-23 11:07 | CASEMGMT ---
Per Marni ARNOLD, pt qualified for home oxygen. Pt stated no preference for DME. Referral faxed to [facility] at this time and call placed to Kati at [facility] and she is made aware of pt at this time, voices understanding. Pt updated on all at this time. Farzaneh ARNOLD CM
== END 2017-05-23 12:22 | disposition home or self-care (01) | DRG 87 ==
LOC: ED 13:18 → PCU 13:37
PROVIDERS: Admitting Provider Hospitalist; Emergency Provider Emergency Medicine; Family Provider Family Medicine Geriatric Medicine; PCP Family Medicine Geriatric Medicine; Visit Provider Internal Medicine
DX: J96.01 Acute respiratory failure with hypoxia (principal); I47.2 Ventricular tachycardia; I50.33 Acute on chronic diastolic (congestive) heart failure; I07.1 Rheumatic tricuspid insufficiency; I48.2 Chronic atrial fibrillation; I27.20 Pulmonary hypertension, unspecified; E66.01 Morbid (severe) obesity due to excess calories; I11.0 Hypertensive heart disease with heart failure; I50.9 Heart failure, unspecified; J84.89 Other specified interstitial pulmonary diseases; B97.81 Human metapneumovirus as the cause of diseases classified elsewhere; E87.6 Hypokalemia; Z68.42 Body mass index [BMI] 45.0-49.9, adult; D50.9 Iron deficiency anemia, unspecified; E03.9 Hypothyroidism, unspecified; G47.33 Obstructive sleep apnea (adult) (pediatric); M19.90 Unspecified osteoarthritis, unspecified site; K21.9 Gastro-esophageal reflux disease without esophagitis; F32.9 Major depressive disorder, single episode, unspecified; Z91.14 Patient's other noncompliance with medication regimen; Z79.01 Long term (current) use of anticoagulants; Z79.899 Other long term (current) drug therapy; Z87.891 Personal history of nicotine dependence
CPT/HCPCS: 36415; 36600; 51702; 71045; 80048; 81001; 82803; 83735; 83880; 84484; 85025; 85610; 87086; 87449; 87633; 93005; 93306; 94002; 94003; 94640; 94667; 94668; 94762; 97110; 97116; 97162; 97165; 97535; 99285; J7040; A4216; J1940

== ENCOUNTER → 2017-05-31 12:15 | Outpatient (CLI) | payer MEDICAID, SELFPAY ==
[2017-05-31 13:36] LABS: Anion Gap 9 (5-15); BUN 37 mg/dL (7-18); BUN/Creat Ratio 27.8 RATIO (10-20); Calcium,Total 9.6 mg/dL (8.5-10.1); Chloride 96 mmol/L (98-107); Creatinine, Serum 1.33 mg/dL (0.55-1.02); EST Glomerular Filtration Rate 44 mL/min (>60); Est Glom Filt Rate - Afr Amer 54 mL/min (>60); Glucose 105 mg/dL (74-106); Potassium 4.1 mmol/L (3.5-5.1); Sodium Level 138 mmol/L (136-145)
== END ==
PROVIDERS: Family Provider Family Medicine Geriatric Medicine; PCP Family Medicine Geriatric Medicine; Visit Provider Family Medicine Geriatric Medicine
DX: E87.6 Hypokalemia (principal)
CPT/HCPCS: 36415; 80048

== ENCOUNTER → 2017-06-21 10:20 | Outpatient (CLI) | payer MEDICAID, SELFPAY ==
[2017-06-21 11:00] VITALS: PULSE 104; PULSE 112; PULSE 117; PULSE 138; PULSE 140; PULSE 78; PULSE 84; O2SAT 89; O2SAT 91; O2SAT 95; O2SAT 96; O2SAT 97; O2SAT 98
--- NOTE | 2017-06-21 13:22 | WT_ITS ---
PSN 6 Minute Walk Test - 6 Minute Walk Test 6 Minute Walk Test: 6 Minute Walk Test PSN:6-Minute Walk Test Start: 06/21/17 11: 26 Freq: Status: Active Protocol: RESP.6MINW Document 06/21/17 11:00 [facility] (Rec: 06/21/17 11:29 [facility] [id number]) 6 Minute Walk Test Date Performed 06/21/17 Time Performed 11:00 Height 5 ft 7 in Weight: 300 lb Weight in Pounds 300.[address]: Jose Bravo Assistive device used: Cane Pre-test Oxygen Delivery Method Room Air Pulse Ox (%) 95 Pulse Rate (60-100 beats/min) 84 Dyspnea Fifi Scale (0-10) 0 Exertion Fifi Scale (6-20) 6 1st minute Oxygen Delivery Method Room Air Pulse Ox (%) 98 Pulse Rate (60-100 beats/min) 104 H Number of Rests Taken 0 2nd minute Oxygen Delivery Method Room Air Pulse Ox (%) 96 Pulse Rate (60-100 beats/min) 117 H Number of Rests Taken 0 3rd minute Oxygen Delivery Method Room Air Pulse Ox (%) 91 Pulse Rate (60-100 beats/min) 138 H Number of Rests Taken 1 4th minute Oxygen Delivery Method Room Air Pulse Ox (%) 89 Pulse Rate (60-100 beats/min) 112 H Number of Rests Taken 1 Reported Symptoms Increased Work of Breathing 5th minute Oxygen Delivery Method Room Air Pulse Ox (%) 89 Pulse Rate (60-100 beats/min) 140 H Number of Rests Taken 0 Reported Symptoms Increased Work of Breathing 6th minute Oxygen Delivery Method Room Air Pulse Ox (%) 89 Pulse Rate (60-100 beats/min) 138 H Number of Rests Taken 0 Reported Symptoms Increased Work of Breathing Post-test Oxygen Delivery Method Room Air Pulse Ox (%) 97 Pulse Rate (60-100 beats/min) 78 Dyspnea Fifi Scale (0-10) 3 Exertion Fifi Scale (6-20) 12 Number of Rests Taken 0 Full Laps Walked 11 Partial Lap, Number of Tiles Walked 43 Total Distance Walked (ft) 692 - Interpretation Interpretation: The patient ambulated 692 feet over the course of 6 minutes on room air with use of a cane. Pretesting oxygen saturation was noted to be 95% on room air. With ambulation, the damari oxygen saturation was 89%. This represents a significant exertional oxygen desaturation. There was also evidence of impaired walk distance and physiologic tachycardia with exertion. - Recommendations Recommendations: There is no indication for the use of supplemental oxygen at this time. However , close interval follow-up is recommended given the degree of oxygen desaturation noted on this study.
== END ==
PROVIDERS: Family Provider Family Medicine Geriatric Medicine; PCP Family Medicine Geriatric Medicine; Visit Provider Internal Medicine Critical Care Medicine
DX: R06.09 Other forms of dyspnea (principal)
CPT/HCPCS: 94618

== ENCOUNTER → 2017-06-25 19:51 | Outpatient (CLI) | payer MEDICAID, SELFPAY | PROVIDERS: Family Provider Family Medicine Geriatric Medicine; PCP Family Medicine Geriatric Medicine; Visit Provider Internal Medicine Critical Care Medicine | DX: G47.33 Obstructive sleep apnea (adult) (pediatric) (principal) | CPT/HCPCS: 95811 ==

== ENCOUNTER → 2017-07-19 09:56 | Outpatient (CLI) | payer MEDICAID, SELFPAY ==
--- NOTE | 2017-07-19 13:42 | PFT ---
INTRODUCTION: The patient is a 51-year-old female currently under the care of Dr. Bravo presents for pulmonary function testing secondary to a diagnosis of dyspnea. Respiratory therapy reports good patient effort and reports no other concerns. Bronchodilators were used during testing. INTERPRETATION: Forced expiration spirometry demonstrates no evidence of a large airways obstructive ventilatory defect. There was no significant response to aerosolized bronchodilators, based upon strict ATS criteria. Spirograms are of good quality and plateau normally. Body plethysmography was performed and reveals a decreased TLC to 4.63 L, 83% of predicted, indicative of a mild restrictive ventilatory impairment. The ERV is significantly reduced at 33% of predicted, likely secondary to body habitus effect. Diffusing capacity by single breath CO is severely reduced at 41% of predicted. IMPRESSION: These pulmonary function studies demonstrate the presence of a mild restrictive ventilatory impairment with a disproportionate severe reduction in diffusing capacity. There are no previous pulmonary function studies available for comparison.
== END ==
PROVIDERS: Family Provider Family Medicine Geriatric Medicine; PCP Family Medicine Geriatric Medicine; Visit Provider Internal Medicine Critical Care Medicine
DX: R06.00 Dyspnea, unspecified (principal)
CPT/HCPCS: 94060; 94726; 94729

== ENCOUNTER → 2017-08-30 13:21 | Outpatient (CLI) | payer MEDICAID, SELFPAY ==
[2017-08-30 16:53] LABS: Absolute Lymphocyte Count 1.43 X10^3/ul (0.83-4.51); Absolute Neutrophil Count 2.6 X10^3/uL (2.0-7.7); Basophil# 0.04 X10^3/uL; Basophil% 0.9 % (0-1); Eosinophil# 0.15 X10^3/uL; Eosinophils% 3.2 % (0-5); Hematocrit 39.3 % (37-47); Hemoglobin 12.5 g/dl (12.0-15.0); Lymphocyte # 1.43 X10^3/ul (4.0); Lymphocyte % 30.5 % (19-41); Mean Corp Hgb Conc 31.8 g/gl (32-36); Mean Corpuscular Hgb 29.3 pg (27.0-32.0); Mean Corpuscular Volume 92.3 fL (81-99); Mean Platelet Vol. 12.2 fl (6.2-12.0); Monocyte# 0.45 X10^3/uL; Monocyte% 9.6 % (0-10); Neutrophil # 2.62 X10^3/uL (2.7-7.7); Neutrophil % 55.8 % (47-70); Platelet Count 182 K/mm3 (150-450); RBC Distribution Width CV 14.2 % (11.6-14.6); RBC Distribution Width SD 46.4 fl (35.1-43.9); Red Blood Count 4.26 M/mm3 (4.2-5.4); White Blood Count 4.7 K/mm3 (4.4-11.0)
[2017-08-30 16:54] LABS: POSITIVE COUNT NO; POSITIVE DIFFERENTIAL NO; POSITIVE MORPHOLOGY NO
[2017-08-30 17:18] LABS: ALB/GLOB Ratio 1.1 RATIO (0.9-2.4); AST(SGOT) 22 U/L (15-37); Alanine Aminotransfer ALT/SGPT 18 U/L (13-56); Alkaline Phosphatase 84 U/L (45-117); Anion Gap 10 (5-15); BUN 35 mg/dL (7-18); BUN/Creat Ratio 20.3 RATIO (10-20); Calcium,Total 9.2 mg/dL (8.5-10.1); Chloride 101 mmol/L (98-107); Creatinine, Serum 1.72 mg/dL (0.55-1.02); EST Glomerular Filtration Rate 33 mL/min (>60); Est Glom Filt Rate - Afr Amer 40 mL/min (>60); Globulin 3.6 g/dL (2.2-4.2); Glucose 102 mg/dL (74-106); Protein, Total 7.6 g/dL (6.4-8.2); Sodium Level 141 mmol/L (136-145); Thyroid Stim Hormone (TSH) 1.43 uIU/mL (0.358-3.74)
[2017-08-31 10:16] LABS: Vitamin D,25 Hydroxy 11.4 ng/mL (29.95-100.01)
[2017-09-03 09:11] LABS: Hep C Antibodies <0.1 s/co ratio (0.0-0.9)
== END ==
PROVIDERS: Family Provider Family Medicine Geriatric Medicine; PCP Family Medicine Geriatric Medicine; Visit Provider Family Medicine Geriatric Medicine
DX: I10 Essential (primary) hypertension (principal); E55.9 Vitamin D deficiency, unspecified; Z13.89 Encounter for screening for other disorder
CPT/HCPCS: 36415; 80053; 82306; 84443; 85025; 86803

== ENCOUNTER → 2017-09-04 09:00 | Outpatient (CLI) | payer MEDICAID, SELFPAY | PROVIDERS: Family Provider Family Medicine Geriatric Medicine; PCP Family Medicine Geriatric Medicine; Visit Provider Internal Medicine Critical Care Medicine | DX: G47.33 Obstructive sleep apnea (adult) (pediatric) (principal) | CPT/HCPCS: 98960; G0463 ==

== ENCOUNTER 2017-09-28 12:00 | Outpatient (RCR) | payer MEDICAID, SELFPAY | END 2017-10-06 23:59 | LOC: NS 12:00 | PROVIDERS: Family Provider Family Medicine Geriatric Medicine; PCP Family Medicine Geriatric Medicine; Visit Provider Orthopaedic Surgery | DX: E66.3 Overweight (principal); Z68.42 Body mass index [BMI] 45.0-49.9, adult; Z71.3 Dietary counseling and surveillance | CPT/HCPCS: 97802 ==

== ENCOUNTER 2017-10-19 08:22 | Outpatient (RCR) | payer MEDICAID, SELFPAY | END 2017-11-06 23:59 | LOC: NS 08:22 | PROVIDERS: Family Provider Family Medicine Geriatric Medicine; PCP Family Medicine Geriatric Medicine; Visit Provider Orthopaedic Surgery | DX: E66.3 Overweight (principal); Z68.42 Body mass index [BMI] 45.0-49.9, adult; Z71.3 Dietary counseling and surveillance | CPT/HCPCS: 97803 ==

== ENCOUNTER 2017-11-30 09:30 | Outpatient (RCR) | payer MEDICAID, SELFPAY | END 2017-12-07 23:59 | LOC: NS 09:30 | PROVIDERS: Family Provider Family Medicine Geriatric Medicine; PCP Family Medicine Geriatric Medicine; Visit Provider Orthopaedic Surgery | DX: E66.3 Overweight (principal); Z68.42 Body mass index [BMI] 45.0-49.9, adult; Z71.3 Dietary counseling and surveillance | CPT/HCPCS: 97803 ==

== ENCOUNTER 2017-11-30 09:40 | Emergency (ER) | payer MEDICAID, SELFPAY ==
[2017-11-30 09:41] VITALS: BP 98/74; PULSE 73; RESP 18; TEMP 36.2; BMI 50.1
--- NOTE | 2017-11-30 10:29 | ED.VISSUMM ---
- ER Visit Summary Date of Service: 11/30/17 Chief Complaint: Lateral left foot pain stepping out of bed History of Present Illness: The patient is a 52 F who stepped out of bed and developed severe lateral left foot pain. She localizes the pain to the base of the fifth metatarsal. She has no prior history of fracture. She denies history of diabetes or neuropathy. She denies any other complaints please read written note for complete detail Physical Examination: There is pain palpation base of the fifth metatarsal. DP PT pulses are palpable. There is no stigmata of peripheral vascular disease noted. There is no pain the patient of the lateral medial malleolus. Test Results: Three-view x-ray of the foot was obtained and reveals a nondisplaced incomplete pseudo-[place] fracture base of the fifth metatarsal, avulsion type Emergency Department Course and Treatment: Will obtain x-ray to evaluate for [place] versus pseudo-[place] fracture. Treatment Plan: Postop shoe, crutches since patient cannot weight-bear and follow-up with Dr. Urbano since she has been seen at that office in the past, Dr. Benedicto Terry Disposition: Discharged home with outpatient orthopedic follow-up Impression: Pseudo-[place] fracture base fifth metatarsal initial encounter This note was generated with [employer] dictation software. It may contain incorrect words, spelling, and punctuation that were not noted in review of the chart prior to signing ED Disposition - Plan for ED Patient: Disposition: Home or Assisted Living Chief Complaint: Lower Extremity Injury Instructions: ED Fx Foot Prescriptions: Hydrocodone Bitart/Apap 5-325 [[place] 5MG-325MG] 1 tablet PO Q6H PRN PRN 3 Days #10 tablet PRN Reason: Pain Referrals: Nabor Garcia Chi, MD [Primary Care Provider] - Temo Urbano DO [STAFF PHYSICIAN] - 5-7 Days
== END 2017-11-30 11:09 | disposition home or self-care (01) ==
PROVIDERS: Emergency Provider Emergency Medicine; Family Provider Family Medicine Geriatric Medicine; PCP Family Medicine Geriatric Medicine
DX: S92.355A Nondisplaced fracture of fifth metatarsal bone, left foot, initial encounter for closed fracture (principal); X58.XXXA Exposure to other specified factors, initial encounter; Y93.9 Activity, unspecified; Y92.9 Unspecified place or not applicable; Y99.9 Unspecified external cause status; I25.10 Atherosclerotic heart disease of native coronary artery without angina pectoris; E11.9 Type 2 diabetes mellitus without complications; I11.0 Hypertensive heart disease with heart failure; I50.9 Heart failure, unspecified; I48.91 Unspecified atrial fibrillation; G47.33 Obstructive sleep apnea (adult) (pediatric); Z71.3 Dietary counseling and surveillance; E66.9 Obesity, unspecified; Z68.42 Body mass index [BMI] 45.0-49.9, adult; Z79.01 Long term (current) use of anticoagulants; Z79.899 Other long term (current) drug therapy; Z87.891 Personal history of nicotine dependence
CPT/HCPCS: 73630; 97803; 99283

== ENCOUNTER → 2017-12-11 10:23 | Outpatient (CLI) | payer MEDICAID, SELFPAY | PROVIDERS: Family Provider Family Medicine Geriatric Medicine; PCP Family Medicine Geriatric Medicine; Visit Provider Physician Assistant | DX: M25.572 Pain in left ankle and joints of left foot (principal); M79.672 Pain in left foot | CPT/HCPCS: 73630 ==

== ENCOUNTER 2017-12-21 09:40 | Day surgery (SDC) | payer MEDICAID, SELFPAY ==
--- NOTE | 2017-12-21 09:52 | EKG12_ITS ---
Test Reason : PRE-OP Blood Pressure : / mmHG Vent. Rate : 073 BPM Atrial Rate : 068 BPM P-R Int : 000 ms QRS Dur : 100 ms QT Int : 402 ms P-R-T Axes : 000 086 246 degrees QTc Int : [address] & T wave abnormality, consider anterior ischemia Abnormal ECG When compared with ECG of 19-MAY-2017 12:22, QT has shortened Confirmed by HANS RAMÍREZ, ARUN ([id number]), features editor BHASKAR AMANDA ([id number]) on 12/24/2017 4:00:47 PM Referred By: Olamide Jean Confirmed By:ARUN MAXWELL MD
[2017-12-21 10:14] LABS: Hematocrit 38.6 % (37-47); Hemoglobin 12.2 g/dl (12.0-15.0); Mean Corp Hgb Conc 31.6 g/gl (32-36); Mean Corpuscular Hgb 29.5 pg (27.0-32.0); Mean Corpuscular Volume 93.5 fL (81-99); Mean Platelet Vol. 11.5 fl (6.2-12.0); Platelet Count 155 K/mm3 (150-450); RBC Distribution Width CV 14.3 % (11.6-14.6); RBC Distribution Width SD 49.1 fl (35.1-43.9); Red Blood Count 4.13 M/mm3 (4.2-5.4); Scan Indicated on CBC? Y/N NO; White Blood Count 5.1 K/mm3 (4.4-11.0)
[2017-12-21 10:20] LABS: International Normalized Ratio 1.1; Prothrombin Time (Protime)PT. 14.1 SECONDS (11.7-14.9)
[2017-12-21 10:21] LABS: Partial Thromboplast Time 32.4 Seconds (24.1-36.2)
[2017-12-21 10:23] VITALS: BP 105/59; PULSE 80; RESP 16; TEMP 36.7; O2SAT 98; BMI 49.8
[2017-12-21 10:29] LABS: Hemoglobin A1c 5.5 % (4.2-6.3)
[2017-12-21 10:48] LABS: BUN 26 mg/dL (7-18); Glucose 96 mg/dL (74-106)
[2017-12-21 10:49] LABS: AST(SGOT) 16 U/L (15-37); Alanine Aminotransfer ALT/SGPT 14 U/L (13-56); Albumin, Serum 3.5 g/dL (3.2-5.0); Alkaline Phosphatase 85 U/L (45-117); Anion Gap 9 (5-15); Chloride 106 mmol/L (98-107); EST Glomerular Filtration Rate 46 mL/min (>60); Est Glom Filt Rate - Afr Amer 55 mL/min (>60); Estimated Creatinine Clearance 48.67 ml/min; Globulin 3.4 g/dL (2.2-4.2); Potassium 4.1 mmol/L (3.5-5.1); Protein, Total 6.9 g/dL (6.4-8.2); Sodium Level 142 mmol/L (136-145); Thyroid Stim Hormone (TSH) 5.75 uIU/mL (0.358-3.74)
[2017-12-21 11:21] LABS: Bedside Glucose 87 mg/dL (70-110)
--- NOTE | 2017-12-21 11:45 | RAD_ITS ---
STUDY: X-RAY - LEFT FOOT CLINICAL: Fracture repair. TECHNIQUE: 2 fluoroscopic views view(s) of the foot. COMPARISON: Radiographs 990/0 07/25. FINDINGS: There is an orthopedic screw transfixing a proximal fifth metatarsal fracture in anatomic alignment and position. Electronically Signed: Deshawn Aguilar MD at 14:23 EDT Tel , Service support , RAD/Foot min 3 Views
[2017-12-21] MEDS: Cefazolin 2 GM in 0.9% Normal Saline 100 ML IV (11:55)
--- NOTE | 2017-12-21 11:55 | PCM.DC.ORTHO ---
Discharge Diet: No Restrictions - follow up in 2 weeks in office with manjit boswell, non weight bearing left leg, call with concerns, use meds as directed Discharge Activity: May Not Drive May shower in (days): 1 Ice area for (Minutes): 20 - Every hour while awake. Weight Bearing Status: Weight bearing as tolerated Keep extremity elevated above heart level: Operative Extremity Call your doctor if your incision/area has: Continuous Slow Oozing, Sudden Increased Bleeding, Increased Pain/ Swelling, Increased Redness, Foul Smelling Discharge Call your doctor if you observe: Fever of 101 or Higher, Coldness, Increased Pain, Numbness or Tingling, Change in Color, Calf discomfort Allergies/Adverse Reactions: Allergies No Known Allergies Allergy (Verified 12/11/17 10:15) Medications to take at Discharge Ranitidine [Zantac] 150 mg PO BID 07/05/15 Metoprolol Tartrate [Lopressor (beta miriam)] 50 mg PO BID 05/16/16 Apixaban [Eliquis] 5 mg PO BID #0 tab 05/23/16 gabapentin 100 mg capsule 300 mg PO TID 30 Days #60 04/27/17 levothyroxine 50 mcg tablet 50 mcg PO DAILY 30 Days #30 04/27/17 oxaprozin 600 mg tablet 600 mg PO BID 30 Days #60 04/27/17 Diltiazem HCl [Tiazac] 180 mg PO DAILY 05/19/17 Albuterol Inhaler [Ventolin Hfa] 2 puff INHALATION Q4H PRN PRN #1 inhaler 05/23/17 Sodium Chloride 0.65% [[place] Nasal [place]] 1 spray NASAL TID PRN PRN spray.btl 05/23/17 ferrous sulfate 325 mg (65 mg iron) tablet 325 mg PO BID tab 07/02/17 furosemide 40 mg tablet 40 mg PO BID #180 tab 07/04/17 potassium chloride ER 20 mEq tablet,extended release(part/cryst) 20 meq PO BID #180 tab 07/04/17 Escitalopram Oxalate [Lexapro] 20 mg PO DAILY 12/19/17 Hydrocodone Bitart/Apap 5-325 [[place] 5MG-325MG] 1 - 2 tablet PO Q6H PRN PRN 5 Days #40 tablet 12/21/17 The following prescriptions were given: Hydrocodone Bitart/Apap 5-325 [[place] 5MG-325MG] 1 - 2 tablet PO Q6H PRN PRN 5 Days #40 tablet PRN Reason: Pain Primary Care Physician: Nabor Garcia Chi, MD [Primary Care Provider] - Test Results: Test results from this visit will be discussed in further detail at your follow-up appointment, if applicable. Please Follow Up With: Olamide Jean, - [phone]
--- NOTE | 2017-12-21 11:57 | PCM.OPRPT ---
Report of Operation Date of Procedure: 12/21/17 Pre-Operative Diagnosis: left pseudojones fifth metatarsal fracture Post-Operative Diagnosis: same Surgery/Procedure Performed:: left fifth metatarsal close reduction intramedullary screw fixation bump grader operator: Brian Hadley Type of Anesthesia:: General Anesthesiologist: Tony Mortensen Estimated Blood Loss (mL): min Fluids Replaced: 700ml lr Description of Procedure: Preoperative note Patient is a 52-year-old female with pseudo-[place] fracture of her left fifth metatarsal. Patient is not able to be nonweightbearing and is having increasing pain. Patient like to proceed with operative fixation with the likelihood of our potential of healing faster than 6-8 weeks as she is minimally ambulatory without maximal assistance if she is not able to wear weight-bear on her left leg. Risks benefits and alternatives surgery discussed with patient. Risks including but not limited to blood loss, blood clot, infection, neurovascular injury, failure procedure, loss of life and loss of limb. Patient is aware like proceed with left close reduction percutaneous R intramedullary screw fixation of the left fifth metatarsal. Next Operative note Patient seen and examined preoperative holding area. Left fifth metatarsal is marked. Patient brought to the operating room please placed supine on the operating table. Sign, anesthesia, antibiotics were administered. The left leg was prepped and draped in usual sterile fashion with a tourniquet around her upper thigh. Timeout was performed. We then use our guidewire to ascertain the level of the guidewire placement both in AP and lateral planes. We then able to drill the guidewire up in the past the fracture site and into the medullary canal of the fifth metatarsal. We then overdrilled it with a 3.5 mm drill we then removed the drill and placed our 4.5 tap as we pre-templated R45 screw to be a good size for her canal fit. We then tapped for 5 placed the 50 x 4 5 Arthrex screw into the fifth metatarsal. We had good reduction of the fracture site and good maintenance and good purchase of distally in the medullary canal. The incision was closed with interrupted nylon sutures. Sterile dressings were applied with a splint posterior splint was placed in the left leg. Sterile patient tolerated procedure well there are no comp occasions transferred to recovery room in stable condition. Postoperative note Nonweightbearing left leg Call with increased pain Follow-up in 2 weeks Call with increased pain numbness tingling further issues arise Dragon disclaimer next This note was generated with [employer] dictation software. It may contain incorrect words, spelling, and punctuation that were not noted in checking the note before signing. Hospital pharmacy has prescription
[2017-12-21 13:15] VITALS: BP 105/59; BP 116/80; PULSE 63; RESP 16; TEMP 36.3; O2SAT 100
[2017-12-21 13:30] VITALS: BP 105/59; BP 110/79; PULSE 76; RESP 16; O2SAT 100
[2017-12-21 13:31] LABS: Bedside Glucose 92 mg/dL (70-110)
[2017-12-21 13:45] VITALS: BP 105/59; BP 108/58; PULSE 68; RESP 16; TEMP 36.6; O2SAT 98
[2017-12-21] MEDS: HYDROcodone Bitartrate/Apap 5/325 Tablet PO (13:52)
[2017-12-21 14:21] VITALS: BP 105/59
[2017-12-21 14:47] VITALS: BP 105/59; BP 117/77; PULSE 70; RESP 16; TEMP 36.2; O2SAT 96
== END 2017-12-21 14:48 | disposition home or self-care (01) ==
LOC: SDC 09:41 → AC 09:42
PROVIDERS: Family Provider Family Medicine Geriatric Medicine; PCP Family Medicine Geriatric Medicine; Visit Provider Orthopaedic Surgery
PROC: (CPT 28485; principal; 2017-12-21 11:30)
DX: S92.352A Displaced fracture of fifth metatarsal bone, left foot, initial encounter for closed fracture (principal); X58.XXXA Exposure to other specified factors, initial encounter; Y93.9 Activity, unspecified; Y92.9 Unspecified place or not applicable; Y99.9 Unspecified external cause status; I48.2 Chronic atrial fibrillation; I11.0 Hypertensive heart disease with heart failure; I50.33 Acute on chronic diastolic (congestive) heart failure; I27.21 Secondary pulmonary arterial hypertension; E11.9 Type 2 diabetes mellitus without complications; E03.9 Hypothyroidism, unspecified; D64.9 Anemia, unspecified; M19.90 Unspecified osteoarthritis, unspecified site; G47.33 Obstructive sleep apnea (adult) (pediatric); K21.9 Gastro-esophageal reflux disease without esophagitis; F32.9 Major depressive disorder, single episode, unspecified; F41.9 Anxiety disorder, unspecified; E66.01 Morbid (severe) obesity due to excess calories; Z68.42 Body mass index [BMI] 45.0-49.9, adult; Z79.01 Long term (current) use of anticoagulants; Z79.899 Other long term (current) drug therapy; Z78.0 Asymptomatic menopausal state; Z87.891 Personal history of nicotine dependence
CPT/HCPCS: 28485; 73630; 76000; 80048; 80076; 82962; 83036; 84443; 85027; 85610; 85730; 93005; C1713; J7120

== ENCOUNTER → 2018-01-03 13:43 | Outpatient (CLI) | payer MEDICAID, SELFPAY ==
--- NOTE | 2018-01-03 13:44 | RAD_ITS ---
STUDY: X-RAY - LEFT FOOT CLINICAL: Postop for 2 weeks. TECHNIQUE: 3 view(s) of the foot. COMPARISON: Intraoperative views 12/21/2017. FINDINGS: Normal talus, calcaneus, and tarsal bones. Normal visualized subtalar, talonavicular, calcaneocuboid, tarsal and tarsometatarsal articulations. There is an orthopedic screw transfixing a proximal fifth metatarsal fracture without interval change. Normal metatarsophalangeal joint of the great toe. Normal tibial and fibular sesamoid bones. Normal interphalangeal joint of the great toe. Normal phalanges of the great toe. Normal second through fifth metatarsophalangeal joints. Normal interphalangeal joints and phalanges of the lesser toes. There is an overlying cast. RAD/Foot min 3 Views IMPRESSION: No interval change of ORIF of fifth metatarsal fracture. Electronically Signed: Deshawn Aguilar MD at 14:39 EDT Tel , Service support ,
== END ==
PROVIDERS: Family Provider Family Medicine Geriatric Medicine; PCP Family Medicine Geriatric Medicine; Referring Provider Orthopaedic Surgery; Visit Provider Orthopaedic Surgery
DX: S92.352A Displaced fracture of fifth metatarsal bone, left foot, initial encounter for closed fracture (principal); X58.XXXA Exposure to other specified factors, initial encounter; Y93.9 Activity, unspecified; Y92.9 Unspecified place or not applicable; Y99.9 Unspecified external cause status
CPT/HCPCS: 73630

== ENCOUNTER → 2018-01-29 13:30 | Outpatient (CLI) | payer MEDICAID, SELFPAY ==
--- NOTE | 2018-01-29 13:34 | RAD_ITS ---
STUDY: X-RAY - LEFT FOOT CLINICAL: Postop, decreased pain. TECHNIQUE: 3 view(s) of the foot. COMPARISON: Radiographs 01/03/2018. FINDINGS: There is a small plantar calcaneal enthesophyte. There are small dorsal osteophytes of the navicular-cuneiform articulation. There is an orthopedic screw transfixing a fracture of the fifth metatarsal base with partial osseous bridging. Normal metatarsophalangeal joint of the great toe. Normal tibial and fibular sesamoid bones. Normal interphalangeal joint of the great toe. Normal phalanges of the great toe. Normal second through fifth metatarsophalangeal joints. Normal interphalangeal joints and phalanges of the lesser toes. There is a small calcification at the superior aspect of the posterior tuberosity of the calcaneus. RAD/Foot min 3 Views IMPRESSION: ORIF of fifth metatarsal base fracture with partial osseous bridging. Electronically Signed: Deshawn Aguilar MD at 11:19 EDT Tel , Service support ,
== END ==
PROVIDERS: Family Provider Family Medicine Geriatric Medicine; PCP Family Medicine Geriatric Medicine; Referring Provider Orthopaedic Surgery; Visit Provider Orthopaedic Surgery
DX: M79.672 Pain in left foot (principal)
CPT/HCPCS: 73630

== ENCOUNTER 2018-03-22 09:43 | Outpatient (RCR) | payer MEDICAID, SELFPAY ==
[2018-03-18 08:25] VITALS: BMI 49.6
== END 2018-04-08 23:59 ==
LOC: NS 09:43
PROVIDERS: Family Provider Family Medicine Geriatric Medicine; PCP Family Medicine Geriatric Medicine; Visit Provider Orthopaedic Surgery
DX: E66.3 Overweight (principal); Z68.42 Body mass index [BMI] 45.0-49.9, adult; Z71.3 Dietary counseling and surveillance
CPT/HCPCS: 97803

== ENCOUNTER 2018-05-31 10:30 | Outpatient (RCR) | payer SELFPAY ==
[2018-03-18 08:25] VITALS: BMI 49.6
== END 2018-06-06 23:59 ==
LOC: NS 10:30
PROVIDERS: Family Provider Family Medicine Geriatric Medicine; PCP Family Medicine Geriatric Medicine; Visit Provider Orthopaedic Surgery
DX: E66.3 Overweight (principal); Z68.42 Body mass index [BMI] 45.0-49.9, adult; Z71.3 Dietary counseling and surveillance
CPT/HCPCS: 97803

== ENCOUNTER → 2018-06-10 15:08 | Outpatient (CLI) | payer SELFPAY ==
[2018-03-18 08:25] VITALS: BMI 49.6
[2018-06-10 16:25] LABS: Absolute Lymphocyte Count 1.26 X10^3/ul (0.83-4.51); Absolute Neutrophil Count 1.8 X10^3/uL (2.0-7.7); Basophil# 0.02 X10^3/uL; Basophil% 0.6 % (0-1); Eosinophils% 5.6 % (0-5); Hematocrit 39.6 % (37-47); Hemoglobin 11.9 g/dl (12.0-15.0); Lymphocyte # 1.26 X10^3/ul (4.0); Lymphocyte % 35.3 % (19-41); Mean Corp Hgb Conc 30.1 g/gl (32-36); Mean Corpuscular Hgb 29.2 pg (27.0-32.0); Mean Corpuscular Volume 97.3 fL (81-99); Mean Platelet Vol. 12.3 fl (6.2-12.0); Monocyte# 0.31 X10^3/uL; Monocyte% 8.7 % (0-10); Neutrophil # 1.78 X10^3/uL (2.7-7.7); Neutrophil % 49.8 % (47-70); POSITIVE COUNT NO; POSITIVE DIFFERENTIAL NO; POSITIVE MORPHOLOGY NO; Platelet Count 148 K/mm3 (150-450); RBC Distribution Width CV 13.6 % (11.6-14.6); RBC Distribution Width SD 46.7 fl (35.1-43.9); Red Blood Count 4.07 M/mm3 (4.2-5.4); White Blood Count 3.6 K/mm3 (4.4-11.0)
[2018-06-10 16:54] LABS: ALB/GLOB Ratio 1.1 RATIO (0.9-2.4); AST(SGOT) 18 U/L (15-37); Alanine Aminotransfer ALT/SGPT 16 U/L (13-56); Albumin, Serum 3.7 g/dL (3.2-5.0); Alkaline Phosphatase 78 U/L (45-117); Anion Gap 13 (5-15); BUN 29 mg/dL (7-18); BUN/Creat Ratio 24.6 RATIO (10-20); Calcium,Total 9.1 mg/dL (8.5-10.1); Chloride 104 mmol/L (98-107); Creatinine, Serum 1.18 mg/dL (0.55-1.02); EST Glomerular Filtration Rate 51 mL/min (>60); Est Glom Filt Rate - Afr Amer 62 mL/min (>60); Globulin 3.3 g/dL (2.2-4.2); Glucose 104 mg/dL (74-106); Potassium 4.2 mmol/L (3.5-5.1); Sodium Level 144 mmol/L (136-145); Thyroid Stim Hormone (TSH) 3.21 uIU/mL (0.358-3.74)
== END ==
PROVIDERS: Family Provider Family Medicine Geriatric Medicine; PCP Family Medicine Geriatric Medicine; Visit Provider Family Medicine Geriatric Medicine
DX: I10 Essential (primary) hypertension (principal)
CPT/HCPCS: 36415; 80053; 84443; 85025

== ENCOUNTER 2018-06-21 08:00 | Outpatient (RCR) | payer OTHER, SELFPAY ==
[2018-03-18 08:25] VITALS: BMI 49.6
[2018-06-20 10:05] VITALS: BMI 49.6
== END 2018-07-07 23:59 ==
LOC: NS 08:00
PROVIDERS: Family Provider Family Medicine Geriatric Medicine; PCP Family Medicine Geriatric Medicine; Visit Provider Orthopaedic Surgery
DX: E66.3 Overweight (principal); Z68.42 Body mass index [BMI] 45.0-49.9, adult; Z71.3 Dietary counseling and surveillance
CPT/HCPCS: 97803

== ENCOUNTER 2018-07-12 11:04 | Outpatient (RCR) | payer OTHER, SELFPAY ==
[2018-07-08 00:21] VITALS: BMI 49.6
== END 2018-08-06 23:59 ==
LOC: NS 11:04
PROVIDERS: Family Provider Family Medicine Geriatric Medicine; PCP Family Medicine Geriatric Medicine; Visit Provider Orthopaedic Surgery
DX: E66.3 Overweight (principal); Z68.42 Body mass index [BMI] 45.0-49.9, adult; Z71.3 Dietary counseling and surveillance
CPT/HCPCS: 97803

== ENCOUNTER 2018-09-06 08:54 | Outpatient (RCR) | payer OTHER, SELFPAY ==
[2018-08-07 00:37] VITALS: BMI 50.1
== END 2018-09-06 23:59 ==
LOC: NS 08:54
PROVIDERS: Family Provider Family Medicine Geriatric Medicine; PCP Family Medicine Geriatric Medicine; Visit Provider Orthopaedic Surgery
DX: E66.3 Overweight (principal); Z68.42 Body mass index [BMI] 45.0-49.9, adult; Z71.3 Dietary counseling and surveillance
CPT/HCPCS: 97803

== ENCOUNTER 2018-09-20 10:03 | Outpatient (RCR) | payer OTHER, SELFPAY ==
[2018-08-07 00:37] VITALS: BMI 50.1
== END 2018-10-06 23:59 ==
LOC: NS 10:03
PROVIDERS: Family Provider Family Medicine Geriatric Medicine; PCP Family Medicine Geriatric Medicine; Visit Provider Orthopaedic Surgery
DX: E66.3 Overweight (principal); Z68.42 Body mass index [BMI] 45.0-49.9, adult; Z71.3 Dietary counseling and surveillance
CPT/HCPCS: 97803

== ENCOUNTER → 2018-09-24 08:54 | Outpatient (CLI) | payer OTHER, SELFPAY ==
[2018-08-07 00:37] VITALS: BMI 50.1
[2018-09-24 12:36] LABS: Absolute Lymphocyte Count 1.17 X10^3/ul (0.83-4.51); Absolute Neutrophil Count 2.4 X10^3/uL (2.0-7.7); Basophil# 0.05 X10^3/uL; Basophil% 1.3 % (0-1); Eosinophil# 0.16 X10^3/uL; Hematocrit 36.6 % (37-47); Hemoglobin 11.2 g/dl (12.0-15.0); Lymphocyte # 1.17 X10^3/ul (4.0); Lymphocyte % 29.3 % (19-41); Mean Corp Hgb Conc 30.6 g/gl (32-36); Mean Corpuscular Hgb 28.8 pg (27.0-32.0); Mean Corpuscular Volume 94.1 fL (81-99); Monocyte# 0.26 X10^3/uL; Monocyte% 6.5 % (0-10); Neutrophil # 2.35 X10^3/uL (2.7-7.7); Neutrophil % 58.6 % (47-70); Platelet Count 176 K/mm3 (150-450); RBC Distribution Width CV 14.8 % (11.6-14.6); RBC Distribution Width SD 50.3 fl (35.1-43.9); Red Blood Count 3.89 M/mm3 (4.2-5.4)
[2018-09-24 12:43] LABS: Vitamin D,25 Hydroxy 31.7 ng/mL (29.95-100.01)
[2018-09-24 12:44] LABS: POSITIVE COUNT NO; POSITIVE DIFFERENTIAL NO; POSITIVE MORPHOLOGY NO
[2018-09-24 12:59] LABS: ALB/GLOB Ratio 1.1 RATIO (0.9-2.4); AST(SGOT) 16 U/L (15-37); Alanine Aminotransfer ALT/SGPT 16 U/L (13-56); Albumin, Serum 3.9 g/dL (3.2-5.0); Alkaline Phosphatase 87 U/L (45-117); Anion Gap 9 (5-15); BUN 37 mg/dL (7-18); BUN/Creat Ratio 24.7 RATIO (10-20); Calcium,Total 9.1 mg/dL (8.5-10.1); Chloride 104 mmol/L (98-107); EST Glomerular Filtration Rate 39 mL/min (>60); Est Glom Filt Rate - Afr Amer 47 mL/min (>60); Globulin 3.5 g/dL (2.2-4.2); Glucose 84 mg/dL (74-106); Potassium 4.2 mmol/L (3.5-5.1); Protein, Total 7.4 g/dL (6.4-8.2); Sodium Level 140 mmol/L (136-145); Thyroid Stim Hormone (TSH) 2.07 uIU/mL (0.358-3.74)
== END ==
PROVIDERS: Visit Provider Family Medicine Geriatric Medicine
DX: I10 Essential (primary) hypertension (principal); E55.9 Vitamin D deficiency, unspecified
CPT/HCPCS: 36415; 80053; 82306; 84443; 85025

== ENCOUNTER → 2018-10-09 10:11 | Outpatient (CLI) | payer OTHER, SELFPAY ==
[2018-10-09 09:57] VITALS: BMI 48.6
--- NOTE | 2018-10-09 10:12 | RAD_ITS ---
STUDY: X-RAY - LEFT KNEE REASON FOR EXAM: Female, 52 years old. Left knee pain. TECHNIQUE: 4 view(s) of the knee. COMPARISON: None. FINDINGS: There is demineralization of the visualized distal femur. There is demineralization of the tibia and fibula. Normal proximal tibiofibular articulation. There is no acute fracture, dislocation or destructive osseous pathology. There is severe degenerative arthrosis of the medial femorotibial compartment with severe joint space narrowing. There is mild degenerative arthrosis of the lateral femorotibial compartment. There is severe degenerative arthrosis of the patellofemoral articulation. There is no demonstrated joint effusion. The soft tissue structures are unremarkable. RAD/Knee 4 or More Views IMPRESSION: Osteopenia and marked degenerative changes of the left knee. Electronically Signed: Edwin French DO at 19:29 EDT Tel [phone], Service support ,
== END ==
PROVIDERS: Family Provider Family Medicine Geriatric Medicine; PCP Family Medicine Geriatric Medicine; Referring Provider Orthopaedic Surgery; Visit Provider Orthopaedic Surgery
DX: M25.562 Pain in left knee (principal)
CPT/HCPCS: 73564

== ENCOUNTER → 2018-10-16 10:16 | Outpatient (CLI) | payer OTHER, SELFPAY ==
[2018-10-09 11:00] VITALS: BMI 48.6
[2018-10-16 10:40] VITALS: PULSE 102; PULSE 103; PULSE 104; PULSE 107; PULSE 63; PULSE 70; PULSE 96; O2SAT 89; O2SAT 90; O2SAT 91; O2SAT 92; O2SAT 93; O2SAT 94; O2SAT 97
--- NOTE | 2018-10-16 10:40 | CPS ---
Pt states she has a concentrator at home currently but does not wear oxygen regularly. Pt states [employer] is her DME.
--- NOTE | 2018-10-16 14:53 | PCM.PSN.6M ---
PSN 6 Minute Walk Test - 6 Minute Walk Test 6 Minute Walk Test: 6 Minute Walk Test PSN:6-Minute Walk Test Start: 10/16/18 11:01 Freq: Status: Active Protocol: RESP.6MINW Document 10/16/18 10:40 [facility] (Rec: 10/16/18 11:06 [facility] [id number]) 6 Minute Walk Test Date Performed 10/16/18 Time Performed 10:40 Height 5 ft 7 in Weight: 141.521 kg Weight in Pounds 312.[address]: Jose Bravo Assistive device used: Cane Pre-test Oxygen Delivery Method Room Air Pulse Ox (%) 94 Pulse Rate (60-100 beats/min) 63 Dyspnea Fifi Scale (0-10) 0 Exertion Fifi Scale (6-20) 6 Number of Rests Taken 0 1st minute Oxygen Delivery Method Room Air Pulse Ox (%) 93 Pulse Rate (60-100 beats/min) 96 Number of Rests Taken 0 2nd minute Oxygen Delivery Method Room Air Pulse Ox (%) 92 Pulse Rate (60-100 beats/min) 104 H Number of Rests Taken 0 3rd minute Oxygen Delivery Method Room Air Pulse Ox (%) 89 Pulse Rate (60-100 beats/min) 107 H Number of Rests Taken 0 4th minute Oxygen Delivery Method Room Air Pulse Ox (%) 89 Pulse Rate (60-100 beats/min) 102 H Number of Rests Taken 0 5th minute Oxygen Delivery Method Room Air Pulse Ox (%) 91 Pulse Rate (60-100 beats/min) 96 Number of Rests Taken 0 6th minute Oxygen Delivery Method Room Air Pulse Ox (%) 90 Pulse Rate (60-100 beats/min) 103 H Number of Rests Taken 0 Post-test Oxygen Delivery Method Room Air Pulse Ox (%) 97 Pulse Rate (60-100 beats/min) 70 Dyspnea Fiif Scale (0-10) 2 Exertion Fifi Scale (6-20) 12 Number of Rests Taken 0 Full Laps Walked 12 Partial Lap, Number of Tiles Walked 15 Total Distance Walked (ft) 723 10/16/18 10:40 (created 10/16/18 11:04) Cardiopulmonary Services by Maria G Vanegas Pt states she has a concentrator at home currently but does not wear oxygen regularly. Pt states [employer] is her DME. Initialized on 10/16/18 11:04 - END OF NOTE - Interpretation Interpretation: The patient was able to ambulate 723 feet over the course of 6 minutes on room air with the assistance of a cane and no break. Patient did have significant desaturation from a baseline of 94%, to as low as 89%, with ambulation. These findings are consistent with a respiratory limitation exercise tolerance. - Recommendations Recommendations: No supplemental oxygen is indicated at this time. However, patient will need to be followed closely given level of desaturation.
== END ==
PROVIDERS: Family Provider Family Medicine Geriatric Medicine; PCP Family Medicine Geriatric Medicine; Referring Provider Internal Medicine Critical Care Medicine; Visit Provider Internal Medicine Critical Care Medicine
DX: I27.21 Secondary pulmonary arterial hypertension (principal); J81.1 Chronic pulmonary edema
CPT/HCPCS: 94618

== ENCOUNTER → 2018-10-17 10:29 | Outpatient (CLI) | payer OTHER, SELFPAY ==
[2018-10-09 11:00] VITALS: BMI 48.6
--- NOTE | 2018-10-17 14:31 | PFTCOMP ---
COMPLETE PULMONARY FUNCTION TEST INTERPRETATION Brief HPI: Patient is a 52 year old female, currently under the care of myself, who presents to [facility] for complete pulmonary function tests secondary to diagnosis of pulmonary edema. Respiratory therapist reports good effort and reproducible results. Interpretation: Forced expiration spirometry shows no large airways obstructive ventilatory defect with an FEV1 of 71% predicted. There is no significant bronchodilator response by strict ATS criteria. Spirograms are of good quality and plateau normally. The respiratory flow volume loop shows a normal pattern. Lung volumes by body plethysmography show a decreased total lung capacity at 4.66 L, 84% predicted. All other lung volumes are reduced symmetrically. Diffusion capacity by carbon monoxide is decreased at 42% predicted. The airway resistance is normal. Compared to previous pulmonary function tests from 07/19/2017, there has been no significant change. Impression: Mild restrictive ventilatory defect with an out of proportion decrease in DLCO, but no change compared to previous testing.
== END ==
PROVIDERS: Family Provider Family Medicine Geriatric Medicine; PCP Family Medicine Geriatric Medicine; Referring Provider Internal Medicine Critical Care Medicine; Visit Provider Internal Medicine Critical Care Medicine
DX: J81.1 Chronic pulmonary edema (principal); I27.21 Secondary pulmonary arterial hypertension
CPT/HCPCS: 94060; 94726; 94729

== ENCOUNTER → 2018-10-18 10:14 | Outpatient (CLI) | payer OTHER, SELFPAY ==
[2018-10-09 11:00] VITALS: BMI 48.6
--- NOTE | 2018-10-18 10:16 | BI_ITS ---
MAMMOGRAPHY - BILATERAL SCREENING REASON FOR EXAM: Female, 52 years old. Routine annual screening examination. PERTINENT HISTORY: Non-contributory. TECHNIQUE: Digital bilateral breast abhijit (3D mammographic acquisition) in the CC and MLO projections. 2-D mediolateral oblique (MLO) and craniocaudad (CC) views of both breasts were obtained. CAD: Full Field Digital Mammography with Computer Added Detection was performed. COMPARISON: No comparison mammograms available at this time. If any prior films become available, an addendum to this report can be generated. FINDINGS: Breast Composition: The breasts are almost entirely fatty. There are no dominant masses or suspicious calcifications. Small benign-appearing bilateral axillary No other significant abnormalities are identified. BI/SCREEN MAMM (CAD) W/ABHIJIT BILAT IMPRESSION: Negative screening mammogram. Yearly followup mammogram recommended. (A) ASSESSMENT CATEGORY: BIRADS Category 2: Benign. A letter regarding these results will be sent to the patient by the facility within 30 days. Approximately 10% of breast cancers are not detected by mammography. A normal mammogram should not delay biopsy of a clinically suspicious abnormality. [id number] Electronically Signed: Fernie Luna, at 12:35 EDT , Service support ,
== END ==
PROVIDERS: Family Provider Family Medicine Geriatric Medicine; PCP Family Medicine Geriatric Medicine; Referring Provider Family Medicine Geriatric Medicine; Visit Provider Family Medicine Geriatric Medicine
DX: Z12.31 Encounter for screening mammogram for malignant neoplasm of breast (principal)
CPT/HCPCS: 77063; 77067

== ENCOUNTER 2018-10-25 11:00 | Outpatient (RCR) | payer OTHER, SELFPAY ==
[2018-10-09 11:00] VITALS: BMI 48.6
== END 2018-11-06 23:59 ==
LOC: NS 11:00
PROVIDERS: Family Provider Family Medicine Geriatric Medicine; PCP Family Medicine Geriatric Medicine; Referring Provider Orthopaedic Surgery; Visit Provider Orthopaedic Surgery
DX: E66.3 Overweight (principal); Z68.42 Body mass index [BMI] 45.0-49.9, adult; Z71.3 Dietary counseling and surveillance
CPT/HCPCS: 97802; 97803

== ENCOUNTER 2018-12-06 10:00 | Outpatient (RCR) | payer OTHER, SELFPAY ==
[2018-10-24 08:35] VITALS: BMI 48.6
== END 2018-12-07 23:59 ==
LOC: NS 10:00
PROVIDERS: Family Provider Family Medicine Geriatric Medicine; PCP Family Medicine Geriatric Medicine; Referring Provider Orthopaedic Surgery; Visit Provider Orthopaedic Surgery
DX: E66.3 Overweight (principal); Z68.42 Body mass index [BMI] 45.0-49.9, adult; Z71.3 Dietary counseling and surveillance
CPT/HCPCS: 97803

== ENCOUNTER 2018-12-27 11:09 | Outpatient (RCR) | payer OTHER, SELFPAY ==
[2018-10-24 08:35] VITALS: BMI 48.6
== END 2019-01-06 23:59 ==
LOC: NS 11:09
PROVIDERS: Family Provider Family Medicine Geriatric Medicine; PCP Family Medicine Geriatric Medicine; Referring Provider Orthopaedic Surgery; Visit Provider Orthopaedic Surgery
DX: E66.3 Overweight (principal); Z68.42 Body mass index [BMI] 45.0-49.9, adult; Z71.3 Dietary counseling and surveillance
CPT/HCPCS: 97803

== ENCOUNTER 2019-01-31 10:30 | Outpatient (RCR) | payer OTHER, SELFPAY ==
[2019-01-03 10:33] VITALS: BMI 48.5
[2019-01-08 07:58] VITALS: BMI 48.7
== END 2019-02-06 23:59 ==
LOC: NS 10:30
PROVIDERS: Family Provider Family Medicine Geriatric Medicine; PCP Family Medicine Geriatric Medicine; Referring Provider Orthopaedic Surgery; Visit Provider Orthopaedic Surgery
DX: E66.3 Overweight (principal); Z68.42 Body mass index [BMI] 45.0-49.9, adult; Z71.3 Dietary counseling and surveillance
CPT/HCPCS: 97803

== ENCOUNTER → 2019-04-16 11:40 | Outpatient (CLI) | payer OTHER, SELFPAY ==
[2019-01-08 07:58] VITALS: BMI 48.7
[2019-04-16 12:23] LABS: Absolute Lymphocyte Count 1.12 X10^3/uL (0.83-4.51); Absolute Neutrophil Count 3.5 X10^3/uL (2.0-7.7); Basophil# 0.03 X10^3/uL; Basophil% 0.6 % (0-1); Eosinophil# 0.12 X10^3/uL; Eosinophils% 2.3 % (0-5); Hematocrit 36.2 % (37-47); Hemoglobin 11.5 g/dL (12.0-15.0); Lymphocyte # 1.12 X10^3/ul (4.0); Lymphocyte % 21.6 % (19-41); Mean Corp Hgb Conc 31.8 g/dL (32-36); Mean Corpuscular Hgb 30.7 pg (27.0-32.0); Mean Corpuscular Volume 96.8 fL (81-99); Mean Platelet Vol. 11.8 fl (6.2-12.0); Monocyte% 7.7 % (0-10); NRBC Flagged by Analyzer 0 % (0-5); Neutrophil # 3.49 X10^3/uL (2.7-7.7); Neutrophil % 67.4 % (47-70); Platelet Count 179 K/mm3 (150-450); RBC Distribution Width CV 13.5 % (11.6-14.6); RBC Distribution Width SD 47.8 fl (35.1-43.9); Red Blood Count 3.74 M/mm3 (4.2-5.4); White Blood Count 5.2 K/mm3 (4.4-11.0)
[2019-04-16 12:57] LABS: AST(SGOT) 22 U/L (15-37); Alanine Aminotransfer ALT/SGPT 18 U/L (13-56); Albumin, Serum 3.6 g/dL (3.2-5.0); Alkaline Phosphatase 71 U/L (45-117); Anion Gap 7 (5-15); BUN 23 mg/dL (7-18); BUN/Creat Ratio 17.3 RATIO (10-20); Calcium,Total 9.3 mg/dL (8.5-10.1); Chloride 99 mmol/L (98-107); Creatinine, Serum 1.33 mg/dL (0.55-1.02); EST Glomerular Filtration Rate 44 mL/min (>60); Est Glom Filt Rate - Afr Amer 53 mL/min (>60); Globulin 3.5 g/dL (2.2-4.2); Glucose 95 mg/dL (74-106); Potassium 4.2 mmol/L (3.5-5.1); Protein, Total 7.1 g/dL (6.4-8.2); Sodium Level 136 mmol/L (136-145); Thyroid Stim Hormone (TSH) 3.93 uIU/mL (0.358-3.74)
== END ==
PROVIDERS: Family Provider Family Medicine Geriatric Medicine; PCP Family Medicine Geriatric Medicine; Visit Provider Family Medicine Geriatric Medicine
DX: I10 Essential (primary) hypertension (principal)
CPT/HCPCS: 36415; 80053; 84443; 85025

== ENCOUNTER 2019-04-24 16:30 | Observation (INO) | payer OTHER, SELFPAY ==
[2019-04-17 09:54] VITALS: BMI 48.7
[2019-04-24] VITALS (8 sets, daily range): BP systolic 94–104; BP diastolic 55–86; PULSE 70–89; RESP 15–23; TEMP 36.5–37.1; O2SAT 94–99; BMI 47.6; BMI 21.4; BMI 21.5
--- NOTE | 2019-04-24 16:34 | EKG12_ITS ---
Test Reason : Blood Pressure : / mmHG Vent. Rate : 075 BPM Atrial Rate : 234 BPM P-R Int : 000 ms QRS Dur : 100 ms QT Int : 416 ms P-R-T Axes : 000 069 244 degrees QTc Int : [address] & T wave abnormality, consider inferior ischemia ST & T wave abnormality, consider anterolateral ischemia Prolonged QT Abnormal ECG Confirmed by BOB RAMÍREZ, SANTA ([id number]), tape editor CONSTANZA GRIJALVA ([id number]) on 04/28/2019 12:15:40 PM Referred By: Nabor Garcia Confirmed By:SANTA ROJAS MD
--- NOTE | 2019-04-24 16:34 | RAD_ITS ---
STUDY: X-RAY CHEST REASON FOR EXAM: Female, 53 years old. CHEST PAIN TECHNIQUE: AP portable COMPARISON: May 20, 2017 FINDINGS: There is elevation of right hemidiaphragm and minor basilar atelectasis. There is no demonstrated pleural abnormality. Heart is enlarged. Normal mediastinum and sen. Normal visualized pulmonary arteries. Normal visualized aortic arch and descending thoracic aorta. Dorsal spine demonstrates degenerative change. Normal visualized ribs, clavicles, and shoulders. There is no demonstrated abnormality of the visualized soft tissue structures of the upper abdomen. RAD/Chest 1 View (Portable) IMPRESSION: Elevated right hemidiaphragm and mild right basilar atelectasis. Electronically Signed: Tung Salcedo MD at 17:21 EST , Service support ,
--- NOTE | 2019-04-24 16:42 | ED.DCSUM_ITS ---
- ER Visit Summary Date of Service: 04/24/19 Chief Complaint: Chest pain History of Present Illness: The patient is a 53 F presenting with chest pain. She states this has been intermittent for the past 2 days. The pain is worsened with exertion. She has associated shortness of breath. She also has URI s ymptoms with rhinorrhea and cough. She denies fever. She went to her primary care physician today who was concerned about EKG changes. He treated her for bronchitis with IM antibiotics. He then sent her to the ED for further evaluation of her chest pain. Physical Examination: Vitals are stable. Patient is afebrile. Alert no acute distress. HEENT exam is unremarkable. Neck is supple. Lungs are clear and equal bilaterally. Heart is irregularly irregular Abdomen is soft nontender nondistended. Extremities ecchymosis and hematoma left posterior thigh Skin is warm and dry. No focal neurologic deficit. Remainder of exam is unremarkable. Emergency Department Course and Treatment: Patient was given aspirin on arrival. EKG is A. fib with T wave inversion inferior laterally, similar to previous. Venous Doppler left lower extremity shows no evidence of DVT. Chest x-ray shows elevated right hemidiaphragm and mild right basilar atelectasis. CBC, chemistries unremarkable other than creatinine 1.26. Troponin is negative. On reevaluation, patient is chest pain-free. Discussed with the hospitalist for observation. Disposition: Observation Impression: Chest pain This note was generated with [employer]. dictation software. It may contain incorrect words, spelling, and punctuation that were not noted in review of the chart prior to signing ED Disposition - Plan for ED Patient: Referrals: Nabor Garcia Chi, MD [Primary Care Provider] -
[2019-04-24] MEDS: Aspirin 81 MG TAB.CHEW 324 MG PO (16:48)
[2019-04-24 16:55] LABS: Absolute Lymphocyte Count 1.39 X10^3/uL (0.83-4.51); Absolute Neutrophil Count 3.2 X10^3/uL (2.0-7.7); Basophil# 0.05 X10^3/uL; Basophil% 0.9 % (0-1); Eosinophil# 0.11 X10^3/uL; Eosinophils% 2.1 % (0-5); Hematocrit 38.8 % (37-47); Hemoglobin 12.4 g/dL (12.0-15.0); Lymphocyte # 1.39 X10^3/ul (4.0); Lymphocyte % 26.3 % (19-41); Mean Platelet Vol. 11.9 fl (6.2-12.0); Monocyte# 0.47 X10^3/uL; Monocyte% 8.9 % (0-10); NRBC Flagged by Analyzer 0 % (0-5); Neutrophil # 3.24 X10^3/uL (2.7-7.7); Neutrophil % 61.4 % (47-70); Platelet Count 207 K/mm3 (150-450); RBC Distribution Width CV 13.7 % (11.6-14.6); RBC Distribution Width SD 48.8 fl (35.1-43.9); White Blood Count 5.3 K/mm3 (4.4-11.0)
[2019-04-24 17:15] LABS: Anion Gap 7 (5-15); BUN 21 mg/dL (7-18); BUN/Creat Ratio 16.7 RATIO (10-20); Calcium,Total 9.5 mg/dL (8.5-10.1); Chloride 98 mmol/L (98-107); Creatinine, Serum 1.26 mg/dL (0.55-1.02); EST Glomerular Filtration Rate 47 mL/min (>60); Est Glom Filt Rate - Afr Amer 57 mL/min (>60); Estimated Creatinine Clearance 49.64 ml/min; Glucose 89 mg/dL (74-106); Potassium 3.4 mmol/L (3.5-5.1); Sodium Level 136 mmol/L (136-145)
--- NOTE | 2019-04-24 17:43 | US_ITS ---
STUDY: VENOUS DOPPLER ULTRASOUND - LEFT LOWER EXTREMITY REASON FOR EXAM: Female, 53 years old. LT THIGH PAIN HEMATOMA PER HER DR TECHNIQUE: Ultrasound evaluation of the deep vein system to include younger-scale imaging and compression was performed. Younger-scale imaging and Doppler sonographic evaluation, including duplex spectral analysis and qualitative color flow sonography, was performed. COMPARISON: None. FINDINGS: Common Femoral Vein: Normal compression, spontaneity and augmentation. Normal color Doppler. Common Femoral Vein/Greater Saphenous Junction: Normal compression, spontaneity and augmentation. Normal color Doppler. Deep Femoral Vein: Normal compression, spontaneity and augmentation. Normal color Doppler. Femoral Proximal: Normal compression, spontaneity and augmentation. Normal color Doppler. Femoral Middle: Normal compression, spontaneity and augmentation. Normal color Doppler. Femoral Distal: Limited visualization without definitive evidence for clot. Popliteal Vein: Normal compression, spontaneity and augmentation. Normal color Doppler. Posterior Tibial Vein: Limited visualization without definitive evidence for clot Peroneal Vein: Limited visualization without definitive evidence for clot US/Venous Duplex Imag/Limited/Uni IMPRESSION: Limited study but no definitive evidence for deep venous thrombosis Electronically Signed: Tung Salcedo MD at 18:24 EST , Service support ,
--- NOTE | 2019-04-24 18:52 | HP.PCM_ITS ---
History of Present Illness Date of Admission: 04/24/19 Chief Complaint: CHEST PAIN The patient is a 53 year old F with a PMH as listed. She was admitted with a complaint of chest pain. Chest pain was stabbing, left-sided, aggravated by movement and relieved by rest. She has not had such as pain before and denies any history of PE or DVT. She denied any lightheadedness or dizziness, shortness of breath, diarrhea vomiting. Review of systems is otherwise negative. Complaint of what she thought was a hematoma the back of her left thigh which she said was due to her sitting on a hard chair in the back of her thigh rubbing against the chair. In the ED, vitals were significant for blood pressure of 99/55 was otherwise unremarkable she was saturating at 96% on room air. Chemistry was significant for creatinine of 1.26 and potassium of 3.4 and CBC was unremarkable. Chest x-ray showed elevated right hemidiaphragm and mild right basilar atelectasis duplex of the left lower extremity done was limited study but no definite evidence of DVT. She has been admitted to manage for chest pain rule out ACS. Initial troponin was negative and EKG showed no acute ST changes. [] Past Medical History Past Medical History (Chronic Problems): Chronic Problems (Last Reviewed 04/17/19 @ 10:00 by MOSES Silva) JASMIN (obstructive sleep apnea) (Chronic) Bipap 10/4 Chronic atrial fibrillation (Chronic) Chronic diastolic (congestive) heart failure (Chronic) Essential (primary) hypertension (Chronic) Medical History: Medical History (Last Reviewed 04/17/19 @ 10:00 by MOSES Silva) JASMIN (obstructive sleep apnea) (Chronic) G47.33 Bipap 10/4 Chronic atrial fibrillation (Chronic) I48.2 Chronic diastolic (congestive) heart failure (Chronic) I50.32 Essential (primary) hypertension (Chronic) I10 Depression F32.9 Diabetes type 2, controlled E11.9 Hypothyroidism E03.9 Obesity, Class III, BMI 40-49.9 (morbid obesity) [id number] Osteoarthritis M19.90 Bronchitis (Resolved) J40 Hematoma of leg (Resolved) S80.10XA Pneumonia (Resolved) J18.9 Pulmonary edema (Resolved) J81.1 Secondary pulmonary arterial hypertension (Resolved) I27.21 Allergies No Known Allergies Allergy (Verified 04/24/19 16:34) Home Medications: Ambulatory Orders Medication Instructions Recorded Ranitidine [Zantac] 150 mg PO BID 07/05/15 Metoprolol Tartrate [Lopressor 50 mg PO BID 05/16/16 (beta miriam)] Apixaban [Eliquis] 5 mg PO BID #0 tab 05/23/16 oxaprozin 600 mg tablet 600 mg PO BID 30 Days #60 04/27/17 furosemide 40 mg tablet 40 mg PO BID #180 tab 07/02/18 diltiazem HCl 180 mg capsule,24 180 mg PO DAILY #90 cap 03/17/19 hr,extended release Amoxicillin/Potassium Clav 1 ea PO BID 04/24/19 [Augmentin 875-125 Tablet] Atorvastatin Calcium 40 mg PO QHS 04/24/19 Codeine Phosphate/Guaifenesin 10 ml PO Q4H PRN PRN 04/24/19 [Codeine-Guaifen 10-100 mg/5 ml] Doxepin HCl 50 mg PO DAILY 04/24/19 Fluoxetine HCl 60 mg PO DAILY 04/24/19 Gabapentin [Neurontin] 100 mg PO BID PRN PRN 04/24/19 Gabapentin [Neurontin] 300 mg PO TID 04/24/19 Levothyroxine Sodium [Synthroid] 75 mcg PO DAILY 04/24/19 Potassium Chloride [Klor-Con M20] 20 meq PO BID 04/24/19 Prednisone 10 mg PO UD 04/24/19 Surgical History: Surgical History (Last Reviewed 04/17/19 @ 10:00 by Christina Fontanez, DROSS PULLER-C) H/O umbilical hernia repair Z98.890, Z87.19 History of tonsillectomy and adenoidectomy Z98.890 Hx of cholecystectomy Z90.49 Open wound of right lower leg (Resolved) S81.801A S81.801A open surgical hematoma wound right anterior leg Surgical History: cholecystectomy, - - arthroscopic surgery on the knee, umbilical hernia repair. Debridement hematoma right leg in 2007. surgical preparation right anterior leg with incision and drainage and excisional debridement hematoma (380 cm2) - 05/17/16. Excisional debridement nonhealing hematoma ulcer right anterior leg with STSG reconstruction from lower anterior abdominal wall (126 cm2) - 09/21/16. Psychiatric History: No pertinent psych hx [employer] History: No pertinent [employer] history Smoking Status: Former smoker - *Family History Paternal Family History: Family History (Last Reviewed 04/17/19 @ 10:00 by MOSES Silva) Father CAD (coronary artery disease) Pacemaker CHF (congestive heart failure) History Items: Heart Disease - father at 64 YOA with an WI, Hypertension, Stroke Maternal Family History: Family History (Last Reviewed 04/17/19 @ 10:00 by MOSES Silva) Father CAD (coronary artery disease) Pacemaker CHF (congestive heart failure) History Items: Hypertension, Stroke Review of Systems Constitutional: Denies: Chills, Fever, Malaise, Weakness, Weight Change HEENT: Denies: Head Aches, Sinus Congestion, Sinus Drainage Cardiovascular: Reports: Chest Pain. Denies: Chest Pressure, Chest Tightness, Edema, Heaviness, Light Headedness, Orthopnea, Palpitations, Paroxysmal Noc. Dyspnea, Syncope Respiratory: Denies: Cough, Shortness of Breath, Shortness of breath at rest, Shortness of breath upon exertion, Sputum production Gastrointestinal: Denies: Abdominal Pain, Nausea, Vomiting Genitourinary: Denies: Dysuria Musculoskeletal: Reports: - - pain at back of left thigh. Denies: Arm Pain, Back Pain, Foot Pain, Hand Pain Skin: Denies: Rash, Wounds Neurological: Denies: Numbness, Tingling, Focal weakness Psychiatric: Denies: Anxiety, Depression, Homicidal Ideations, Suicidal Ideations Hematologic/ Lymphatic: Denies: Easy Bruising, Easy Bleeding VTE Information - Inpt Only VTE Present on Admission: No VTE Pharm Prophylaxis ordered?: Yes - Physical Exam Vitals/I&O's: Vital Signs Temp Pulse Resp BP Pulse Ox 98 F 78 23 H 104/86 H 96 04/24/19 18:00 04/24/19 18:50 04/24/19 18:35 04/24/19 18:35 04/24/19 18:35 Oxygen Delivery Method Room Air Weight: 137 lb Body Mass Index (BMI) 21.4 General: Alert, Oriented x3, Cooperative, - HEENT: Atraumatic, PERRLA, EOMI, Normocephalic Neck: Supple, No JVD, Negative Carotid Bruits Lungs: Clear to auscultation, Normal air movement, No rhonchi, No wheeze, No rales Cardiovascular: Normal S1, Normal S2, No murmurs, Irregular Rate - Afib, rate controlled Abdomen: Bowel Sounds Present, Soft, Non Tender Extremities: No clubbing, No cyanosis, No edema, Capillary Refill Less than 3 Seconds Skin: No rashes, No breakdown Musculoskeletal: - - has a firm, indurated swelling at back of left thigh (~ [id number]) Lymphatic: No Cervical, Supraclavicular, or Inguinal Adenopathy Neurological: Cranial nerves II-XII grossly intact, Neuro grossly intact, Motor Exam 5/5 strength throughout Psych/Mental Status: Normal Affect, Appropriate, Alert and oriented to time, place, person, mood and affect Laboratory Results 04/24/19 16:35: WBC 5.3, RBC 4.00 L, Hgb 12.4, Hct 38.8, MCV 97.0, MCH 31.0, MCHC 32.0, RDW Std Deviation 48.8 H, RDW Coeff of Shannan 13.7, Plt Count 207, MPV 11.9, Immature Gran % (Auto) 0.400, Neut % (Auto) 61.4, Lymph % (Auto) 26.3, Wilkin % (Auto) 8.9, Eos % (Auto) 2.1, Baso % (Auto) 0.9, Absolute Neuts (auto) 3.2, Absolute Lymphs (auto) 1.39, Nucleated RBC % 0 04/24/19 16:35: Sodium 136, Potassium 3.4 L, Chloride 98, Carbon Dioxide 31.0, Anion Gap 7, BUN 21 H, Creatinine 1.26 H, Estim Creat Clear Calc 49.64, Est GFR (MDRD) Af Amer 57 L, Est GFR (MDRD) Non-Af 47 L, BUN/Creatinine Ratio 16.7, G lucose 89, Calcium 9.5, Troponin I 0.015 Diagnostic Data Chest X-Ray 04/24/19 16:34 IMPRESSION: Elevated right hemidiaphragm and mild right basilar atelectasis. Electronically Signed: Tung Salcedo MD at 17:21 EST , Service support , Venous Duplex 04/24/19 17:43 IMPRESSION: Limited study but no definitive evidence for deep venous thrombosis Electronically Signed: Tung Salcedo MD at 18:24 EST , Service support , Current Medications Sodium Chloride () 10 - 40 ml IV UD PRN PRN Reason: SALINE FLUSH Assessment/Plan All Active Problems (Last Reviewed 04/17/19 @ 10:00 by Christina Fontanez, THIEN-Lynda) Frequent falls (Acute) Bronchitis (Resolved) Cellulitis (Resolved) Chest pain (Resolved) Dyspnea (Resolved) Hematoma of leg (Resolved) Open wound of right lower leg (Resolved) Pneumonia (Resolved) Pulmonary edema (Resolved) Secondary pulmonary arterial hypertension (Resolved) Sepsis (Resolved) 53-year-old admitted with complaint of chest pain. 1. Chest pain to r/o ACS * admit to PCU with telemetry * cycle troponins. Initial EKG showed no acuate ST changes * Troponins are negative, to have stress test tomorrow. * On nitroglycerin. P.o. aspirin 81 mg daily. * 2. A. fib: Currently rate controlled. On Cardizem. Will continue. On eliquis 3. ?hematoma of left posterior thigh * Has a firm indurated swelling on the back of the right thigh which is nontender. * Thinks this is a hematoma and she does have some bruising around it. * She thinks is due to her sitting on a hard chair. Duplex of the left lower extremity showed no evidence of DVT. * will monitor for now. * 4. Type 2 diabetes mellitus: Uncomplicated type 2 diabetes mellitus. Diet controlled. 5. Hypothyroidism: On Synthroid. 6. Hypertension: On metoprolol. DVT prophylaxis: On Eliquis. Code status: full code * Patient counseled extensively about different types of CODE STATUS including full code, DNR CCA and DNR CCA. Patient elects to be full code. Total lbvx-fq-fxta time 16 minutes. Code Visit OBSV E&M: 85163 Initial observation care L2 Procedures: 65037 Advncd Care Plan 30 Min
--- NOTE | 2019-04-24 19:40 | EKG12_ITS ---
Test Reason : CP Blood Pressure : / mmHG Vent. Rate : 077 BPM Atrial Rate : 065 BPM P-R Int : 000 ms QRS Dur : 098 ms QT Int : 408 ms P-R-T Axes : 000 076 233 degrees QTc Int : [address] & T wave abnormality, consider inferior ischemia ST & T wave abnormality, consider anterolateral ischemia Prolonged QT Abnormal ECG Confirmed by BOB RAMÍREZ, SANTA ([id number]), brands editor CONSTANZA GRIJALVA ([id number]) on 04/30/2019 11:14:08 AM Referred By: Nabor Garcia Confirmed By:SANTA ROJAS MD
[2019-04-24] MEDS: Famotidine 20 MG Tablet PO (22:03)
[2019-04-24] MEDS: Atorvastatin Calcium 40 MG Tablet PO (22:03)
[2019-04-24] MEDS: Ibuprofen 600 MG Tablet PO (22:03)
[2019-04-24] MEDS: Acetaminophen 325 MG Tablet 650 MG PO (22:04)
[2019-04-25] VITALS (7 sets, daily range): BP systolic 78–116; BP diastolic 45–96; PULSE 67–112; RESP 16; TEMP 36.4–36.9; O2SAT 93–96
[2019-04-25] MEDS: Amox/Clavulanate 875 MG Tablet PO ×2 (00:03→12:21)
[2019-04-25] MEDS: APIXABAN 5 MG TABLET PO ×2 (00:03→12:21)
[2019-04-25] MEDS: Gabapentin 300 MG Capsule PO ×2 (00:03→05:26)
[2019-04-25] MEDS: 0.9% Normal Saline 1,000 ML 999 ML IV (00:37)
[2019-04-25] MEDS: Aspirin E.C. 81 MG Tablet PO (05:26)
[2019-04-25] MEDS: Levothyroxine 75 MCG Tablet PO (05:26)
--- NOTE | 2019-04-25 05:55 | EKG12_ITS ---
Test Reason : AM EKG Blood Pressure : / mmHG Vent. Rate : 067 BPM Atrial Rate : 202 BPM P-R Int : 000 ms QRS Dur : 100 ms QT Int : 424 ms P-R-T Axes : 000 078 251 degrees QTc Int : [address] & T wave abnormality, consider anterolateral ischemia Abnormal ECG Confirmed by BOB RAMÍREZ, SANTA ([id number]), electronic news gathering editor CONSTANZA GRIJALVA ([id number]) on 04/30/2019 10:16:50 AM Referred By: Nabor Garcia Confirmed By:SANTA ROJAS MD
[2019-04-25 05:57] LABS: Absolute Lymphocyte Count 1.24 X10^3/uL (0.83-4.51); Absolute Neutrophil Count 3.1 X10^3/uL (2.0-7.7); Anion Gap 6 (5-15); BUN 24 mg/dL (7-18); BUN/Creat Ratio 18.8 RATIO (10-20); Basophil# 0.05 X10^3/uL; Calcium,Total 8.8 mg/dL (8.5-10.1); Chloride 105 mmol/L (98-107); Creatinine, Serum 1.28 mg/dL (0.55-1.02); EST Glomerular Filtration Rate 46 mL/min (>60); Eosinophil# 0.09 X10^3/uL; Eosinophils% 1.8 % (0-5); Est Glom Filt Rate - Afr Amer 56 mL/min (>60); Estimated Creatinine Clearance 48.86 ml/min; Glucose 81 mg/dL (74-106); Hematocrit 33.9 % (37-47); Hemoglobin 10.7 g/dL (12.0-15.0); Lymphocyte # 1.24 X10^3/ul (4.0); Lymphocyte % 24.9 % (19-41); Mean Corp Hgb Conc 31.6 g/dL (32-36); Mean Corpuscular Hgb 30.8 pg (27.0-32.0); Mean Corpuscular Volume 97.7 fL (81-99); Monocyte# 0.48 X10^3/uL; Monocyte% 9.7 % (0-10); NRBC Flagged by Analyzer 0 % (0-5); Neutrophil # 3.09 X10^3/uL (2.7-7.7); Neutrophil % 62.2 % (47-70); Platelet Count 189 K/mm3 (150-450); Potassium 4.5 mmol/L (3.5-5.1); RBC Distribution Width CV 13.8 % (11.6-14.6); Red Blood Count 3.47 M/mm3 (4.2-5.4); Sodium Level 140 mmol/L (136-145)
--- NOTE | 2019-04-25 11:31 | STRESSREP ---
Stress Test Report Date: 04-25-2019 Procedure: Pharmacologic stress nuclear imaging study Indications: Chest pain; atrial fibrillation Consent: Per the patient Procedure: The patient underwent pharmacologic (Regadenoson) evaluation with a peak heart rate of 113 beats per minute (68 %predicted maximal heart rate) and a peak blood pressure of 118/70 mmHg. The baseline ECG demonstrated atrial fibrillation; nonspecific ST/T wave abnormality. The peak pharmacologic ECG demonstrated no obvious ECG changes. There were no cardiac dysrhythmias pretest, during pharmacologic infusion, or recovery. There was no complaint of chest discomfort during pharmacologic infusion or recovery. The examination was discontinued secondary to completion of protocol. Impression: 1. Pharmacologic (Regadenoson) evaluation 2. Peak pharmacologic ECG with with no obvious ECG changes. 3. There were no cardiac dysrhythmias pretest, during pharmacologic infusion, or recovery. 4. Nuclear images pending Myocardial perfusion imaging study: Technique: The patient was injected with 15.0 millicuries of technetium 99m Cardiolite and subsequently rest SPECT Cardiolite nuclear imaging was obtained in the horizontal long, vertical long, and short axis views. The patient underwent pharmacologic (Regadenoson) evaluation with a peak heart rate of 113 beats per minute (68 % percent predicted maximal heart rate) and a peak blood pressure of 118/70 mmHg. The patient was injected with 45.0 millicuries of technetium 99m Cardiolite and subsequently stress SPECT Cardiolite nuclear imaging was obtained in the horizontal long, vertical long, and short axis views. A gated Cardiolite study at peak stress was obtained. Interpretation: Rest and stress SPECT Cardiolite nuclear imaging status post realignment, normalization, and attenuation correction demonstrate a small area of diminished myocardial perfusion/tracer uptake in the distal anterolateral segments at rest which appears to improve and/or normalize following stress. There is end systolic thickening and brightening. The gated Cardiolite study demonstrates myocardial thickening and inward wall motion. The reported LVEF is 66 %. Impression: 1. Rest and stress SPECT Cardiolite nuclear imaging demonstrate myocardial perfusion changes at rest which appear to improve and/or normalize following stress appearing compatible with shifting soft tissue attenuation/artifact with no myocardial perfusion changes considered diagnostic for associated stress-induced myocardial ischemia. 2. The gated Cardiolite study reports an LVEF of 66 %. This note was generated with [employer] software. It may contain incorrect words, spelling, and punctuation that were not noted in checking the note before signing.
--- NOTE | 2019-04-25 11:40 | DCINST_ITS ---
You will use the following diet at home:: Calorie/Carbohydrate Controlled (specify 1200, 1400, etc), Cardiac Discharge Activity: Return to Normal Activity Call your doctor if you observe: Shortness of breath, Dizziness, Fainting spells, Chest pain Allergies/Adverse Reactions: Allergies No Known Allergies Allergy (Verified 04/24/19 16:34) Medications to take at Discharge Ranitidine [Zantac] 150 mg PO BID 07/05/15 Metoprolol Tartrate [Lopressor (beta miriam)] 50 mg PO BID 05/16/16 Apixaban [Eliquis] 5 mg PO BID #0 tab 05/23/16 oxaprozin 600 mg tablet 600 mg PO BID 30 Days #60 04/27/17 furosemide 40 mg tablet 40 mg PO BID #180 tab 07/02/18 diltiazem HCl 180 mg capsule,24 hr,extended release 180 mg PO DAILY #90 cap 03/17/19 Amoxicillin/Potassium Clav [Augmentin 875-125 Tablet] 1 ea PO BID 04/24/19 Atorvastatin Calcium 40 mg PO QHS 04/24/19 Codeine Phosphate/Guaifenesin [Codeine-Guaifen 10-100 mg/5 ml] 10 ml PO Q4H PRN PRN 04/24/19 Doxepin HCl 50 mg PO DAILY 04/24/19 Fluoxetine HCl 60 mg PO DAILY 04/24/19 Gabapentin [Neurontin] 100 mg PO BID PRN PRN 04/24/19 Gabapentin [Neurontin] 300 mg PO TID 04/24/19 Levothyroxine Sodium [Synthroid] 75 mcg PO DAILY 04/24/19 Potassium Chloride [Klor-Con M20] 20 meq PO BID 04/24/19 Prednisone 10 mg PO UD 04/24/19 Primary Care Physician: Nabor Garcia Chi, MD [Primary Care Provider] - Please follow up with your Primary Care Physician in: 1 Week Test Results: Test results from this visit will be discussed in further detail at your follow- up appointment, if applicable. Please Follow Up With: Sandra Maurer PA When: As scheduled 07/04/2019, call for sooner appointment if further symptoms Proposed Discharge Date: 04/25/19
[2019-04-25] MEDS: Famotidine 20 MG Tablet PO (12:20)
[2019-04-25] MEDS: FLUoxetine 20 MG Capsule 60 MG PO (12:20)
[2019-04-25] MEDS: Metoprolol Tartrate 50 MG Tablet PO (12:21)
[2019-04-25] MEDS: DOXEPIN HCL 50 MG CAPSULE PO (12:21)
[2019-04-25] MEDS: predniSONE 10 MG Tablet 40 MG PO (12:22)
[2019-04-25] MEDS: dilTIAZem CD 180 MG Capsule PO (12:22)
[2019-04-25] MEDS: Furosemide 40 MG Tablet PO (12:23)
--- NOTE | 2019-04-25 12:26 | DS.PCM_ITS ---
<Rebecca Castellano - Last Filed: 04/25/19 12:38> Discharge Date and Diagnosis Date of Admission: 04/24/19 Date of Discharge: 04/25/19 - Primary Discharge Diagnosis 1. Musculoskeletal chest pain, ACS ruled out 2. Recent URI with bronchitis 3. Left posterior thigh hematoma 4. Chronic atrial fibrillation 5. Chronic diastolic CHF 6. Hypertension 7. JASMIN 8. Type 2 diabetes mellitus 9. Hypothyroidism 10. Morbid obesity - Secondary Discharge Diagnosis Chronic Problems (Last Reviewed 04/17/19 @ 10:00 by MOSES Silva) JASMIN (obstructive sleep apnea) (Chronic) Bipap 01/10 Chronic atrial fibrillation (Chronic) Chronic diastolic (congestive) heart failure (Chronic) Essential (primary) hypertension (Chronic) Hospital Course and Treatment Imaging Results: Diagnostic Data Chest X-Ray 04/24/19 16:34 IMPRESSION: Elevated right hemidiaphragm and mild right basilar atelectasis. Electronically Signed: Tung Salcedo MD at 17:21 EST , Service support , Venous Duplex 04/24/19 17:43 IMPRESSION: Limited study but no definitive evidence for deep venous thrombosis Electronically Signed: Tung Salcedo MD at 18:24 EST , Service support , Operations: None Procedures: Stress test Summary of Care Provided: The patient is a 53 year old F admitted 04/24/2019 due to chest pain. 1. Musculoskeletal chest pain, ACS ruled out-troponin negative. EKG without ST-T changes. Patient underwent nuclear stress test which was negative for ischemia. LVEF 66%. Patient has had URI with persistent cough, suspect contributing to presenting chest discomfort. Follow-up with primary care physician in 1 week. 2. Recent URI with bronchitis-patient reports ongoing cough and boyfriend at home has been sick. Placed on cough medicine, Augmentin and prednisone yesterday which she has not yet picked up Rx for. Recommend continuing prescribed treatment. 3. Left posterior thigh hematoma-continue outpatient monitoring. 4. Chronic atrial fibrillation-continue Victoriano Hampton. Follows with Dr. Espinal. 5. Chronic diastolic CHF-echocardiogram May 2017 demonstrated an EF of 50%. Continue home Lasix regimen. 6. Hypertension-continue Lasix, metoprolol regimen. 7. JASMIN-continue home BiPAP regimen. Follows with Dr. Bravo. 8. Type 2 diabetes mellitus-diet controlled. Hemoglobin A1c December 2017 5.5%. 9. Hypothyroidism-continue Synthroid regimen. 10. Morbid obesity- encouraged diet and lifestyle modifications. General: Alert, Oriented x3, Cooperative HEENT: Atraumatic, PERRLA, EOMI, Normocephalic Neck: Supple, No JVD, Negative Carotid Bruits Lungs: Clear to auscultation, Normal air movement Cardiovascular: Normal S1, Normal S2, No murmurs,A-fib, rate controlled Abdomen: Bowel Sounds Present, Soft, Non Tender, obese Extremities: No clubbing, No cyanosis, No edema Skin: No rashes, No breakdown Musculoskeletal: Localized indurated swelling at back of left thigh- firm. No evidence of infection. Lymphatic: No Cervical, Supraclavicular, or Inguinal Adenopathy Neurological: Cranial nerves II-XII grossly intact, Neuro grossly intact Psych/Mental Status: Normal Affect, Appropriate Patient seen and examined prior to discharge. Physical assessment as noted above. Patient is stable for discharge with follow up recommendations as noted above. This patient was seen by MOSES Crespo under the supervision of Dr. Darby. - Physical Exam Vitals/I&O's: Vital Signs Temp Pulse Resp BP Pulse Ox 97.5 F L 112 H 16 116/96 H 96 04/25/19 12:09 04/25/19 12:21 04/25/19 12:09 04/25/19 12:09 04/25/19 12:09 Oxygen Delivery Method Room Air Weight: 305 lb 8.971 oz Body Mass Index (BMI) 21.4 Intake and Output for Last 24 Hours 04/23/19 04/24/19 04/25/19 23:59 23:59 23:59 Intake Total 240 / 240 1120 / 1120 Balance 240 / 240 1120 / 1120 Laboratory Results 04/24/19 16:35: WBC 5.3, RBC 4.00 L, Hgb 12.4, Hct 38.8, MCV 97.0, MCH 31.0, MCHC 32.0, RDW Std Deviation 48.8 H, RDW Coeff of Shannan 13.7, Plt Count 207, MPV 11.9, Immature Gran % (Auto) 0.400, Neut % (Auto) 61.4, Lymph % (Auto) 26.3, Ford % (Auto) 8.9, Eos % (Auto) 2.1, Baso % (Auto) 0.9, Absolute Neuts (auto) 3.2, Absolute Lymphs (auto) 1.39, Nucleated RBC % 0 04/24/19 16:35: Sodium 136, Potassium 3.4 L, Chloride 98, Carbon Dioxide 31.0, Anion Gap 7, BUN 21 H, Creatinine 1.26 H, Estim Creat Clear Calc 49.64, Est GFR (MDRD) Af Amer 57 L, Est GFR (MDRD) Non-Af 47 L, BUN/Creatinine Ratio 16.7, Glucose 89, Calcium 9.5, Troponin I 0.015 04/24/19 19:57: Troponin I < 0.015 04/24/19 22:48: Troponin I 0.019 04/25/19 05:15: WBC 5.0, RBC 3.47 L, Hgb 10.7 L, Hct 33.9 L, MCV 97.7, MCH 30.8, MCHC 31.6 L, RDW Std Deviation 49.0 H, RDW Coeff of Shannan 13.8, Plt Count 189, MPV 12.0, Immature Gran % (Auto) 0.400, Neut % (Auto) 62.2, Lymph % (Auto) 24.9, Ford % (Auto) 9.7, Eos % (Auto) 1.8, Baso % (Auto) 1.0, Absolute Neuts (auto) 3.1, Absolute Lymphs (auto) 1.24, Nucleated RBC % 0 04/25/19 05:15: Sodium 140, Potassium 4.5, Chloride 105, Carbon Dioxide 29.0, Anion Gap 6, BUN 24 H, Creatinine 1.28 H, Estim Creat Clear Calc 48.86, Est GFR (MDRD) Af Amer 56 L, Est GFR (MDRD) Non-Af 46 L, BUN/Creatinine Ratio 18.8, Glucose 81, Calcium 8.8 Current Medications Acetaminophen (Tylenol) 650 mg PO Q6H PRN PRN PRN Reason: Pain Score 1-/Temp > 100.7 F Last Admin: 04/24/19 22:04 Dose: 650 mg Documented by: Amoxicillin/Clavulanate Potassium (Augmentin Tablet) 875 mg PO BID [facility] Last Admin: 04/25/19 12:21 Dose: 875 mg Documented by: Apixaban (Eliquis) 5 mg PO BID [facility] Last Admin: 04/25/19 12:21 Dose: 5 mg Documented by: Aspirin (Ecotrin) 81 mg PO DAILY@0800 [facility] Last Admin: 04/25/19 05:26 Dose: 81 mg Documented by: Atorvastatin Calcium (Lipitor) 40 mg PO QHS [facility] Last Admin: 04/24/19 22:03 Dose: 40 mg Documented by: Diltiazem HCl (Cardizem Cd) 180 mg PO DAILY [facility] Last Admin: 04/25/19 12:22 Dose: 180 mg Documented by: Doxepin HCl (Doxepin Hcl) 50 mg PO DAILY [facility] Last Admin: 04/25/19 12:21 Dose: 50 mg Documented by: Famotidine (Pepcid) 20 mg PO BID [facility] Last Admin: 04/25/19 12:20 Dose: 20 mg Documented by: Fluoxetine HCl (Prozac) 60 mg PO DAILY [facility] Last Admin: 04/25/19 12:20 Dose: 60 mg Documented by: Furosemide (Lasix) 40 mg PO BID [facility] Last Admin: 04/25/19 12:23 Dose: 40 mg Documented by: Gabapentin (Neurontin) 100 mg PO BID PRN PRN PRN Reason: Pain Score 4-10/10 Gabapentin (Neurontin) 300 mg PO TID [facility] Last Admin: 04/25/19 05:26 Dose: 300 mg Documented by: Glucagon () 1 mg IM .X1 PRN PRN Reason: Hypoglycemia Guaifenesin/Codeine Phosphate (Robitussin Ac) 10 ml PO Q4H PRN PRN PRN Reason: COUGH Dextrose (Dextrose 10%-Water) 250 mls @ 999 mls/hr IV .Q16M PRN; Protocol PRN Reason: HYPOGLYCEMIA Ibuprofen (Motrin) 600 mg PO TID [facility] Last Admin: 04/25/19 05:27 Dose: Not Given Documented by: Levothyroxine Sodium (Synthroid) 75 mcg PO DAILY@0600 [facility] Last Admin: 04/25/19 05:26 Dose: 75 mcg Documented by: Metoprolol Tartrate (Lopressor (Beta Altagracia)) 50 mg PO BID [facility] Last Admin: 04/25/19 12:21 Dose: 50 mg Documented by: Nitroglycerin (Nitrostat) 0.4 mg SUBLINGUAL Q5M PRN PRN Reason: CARDIAC/CHEST PAIN Ondansetron HCl (Zofran) 4 mg IV Q8H PRN PRN PRN Reason: NAUSEA/VOMITING Potassium Chloride (K-Dur) 20 meq PO BID [facility] Last Admin: 04/25/19 12:22 Dose: 20 meq Documented by: [facility] () [facility] Taper Stop: 05/03/19 07:59 Last Admin: 04/25/19 12:22 Dose: 40 mg Documented by: Sodium Chloride () 10 - 40 ml IV UD PRN PRN Reason: SALINE FLUSH Discharge Diet: Low fat/ Low Cholesterol, 1800 Calorie Control Diet, Carb Control Diet Discharge Activity: Return to Normal Activity Call your doctor if you observe: Shortness of breath, Dizziness, Fainting spells, Chest pain Home Medications: Medications to take at Discharge Ranitidine [Zantac] 150 mg PO BID 07/05/15 Metoprolol Tartrate [Lopressor (beta altagracia)] 50 mg PO BID 05/16/16 Apixaban [Eliquis] 5 mg PO BID #0 tab 05/23/16 oxaprozin 600 mg tablet 600 mg PO BID 30 Days #60 04/27/17 furosemide 40 mg tablet 40 mg PO BID #180 tab 07/02/18 diltiazem HCl 180 mg capsule,24 hr,extended release 180 mg PO DAILY #90 cap 03/17/19 Amoxicillin/Potassium Clav [Augmentin 875-125 Tablet] 1 ea PO BID 04/24/19 Atorvastatin Calcium 40 mg PO QHS 04/24/19 Codeine Phosphate/Guaifenesin [Codeine-Guaifen 10-100 mg/5 ml] 10 ml PO Q4H PRN PRN 04/24/19 Doxepin HCl 50 mg PO DAILY 04/24/19 Fluoxetine HCl 60 mg PO DAILY 04/24/19 Gabapentin [Neurontin] 100 mg PO BID PRN PRN 04/24/19 Gabapentin [Neurontin] 300 mg PO TID 04/24/19 Levothyroxine Sodium [Synthroid] 75 mcg PO DAILY 04/24/19 Potassium Chloride [Klor-Con M20] 20 meq PO BID 04/24/19 Prednisone 10 mg PO UD 04/24/19 Primary Care Physician: Nabor Garcia Chi, MD [Primary Care Provider] - Please follow up with your Primary Care Physician in: 1 Week Please Follow Up With: Sandra Maurer PA When: As scheduled 07/04/2019, call for sooner appointment if further symptoms Disposition: Home Minutes spent on discharge:: 35 Patient Condition:: Stable Medical Necessity - Tobacco Use Smoking Status: Former smoker Tobacco Use: Cigarettes Meaningful Use Info Meaningful Use Diagnoses (Choose all that apply): None applicable <Niko Darby - Last Filed: 04/25/19 13:47> Discharge Date and Diagnosis - Secondary Discharge Diagnosis Chronic Problems (Last Reviewed 04/17/19 @ 10:00 by MOSES Silva) JASMIN (obstructive sleep apnea) (Chronic) Bipap 01/10 Chronic atrial fibrillation (Chronic) Chronic diastolic (congestive) heart failure (Chronic) Essential (primary) hypertension (Chronic) Hospital Course and Treatment Imaging Results: 04/25/19 05:55 Nuclear Stress Test - Chemical [NM] AM (NON MEDS) Summary of Care Provided: This patient was seen in conjunction with MOSES Crespo . I have independently reviewed pertinent historical, laboratory, and other data. Please refer to MOSES Crespo note for details of this patient's presentation, findings, and recommendations. I have reviewed MOSES Crespo note and concur with documented findings. In brief, patient is a 53-year-old lady admitted with chest pain placed in a monitored bed underwent serial cardiac enzymes which came back negative for myocardial infarction subsequently had a nuclear stress test which was negative for stress-induced ischemia discharged home and instructed to follow-up with PCP for subsequent care. Hospital course: As documented above - Physical Exam Vitals/I&O's: Vital Signs Temp Pulse Resp BP Pulse Ox 97.5 F L 112 H 16 116/96 H 96 04/25/19 12:09 04/25/19 12:21 04/25/19 12:09 04/25/19 12:04/25/19 12:09 Oxygen Delivery Method Room Air Weight: 138.6 kg Body Mass Index (BMI) 21.4 Intake and Output for Last 24 Hours 04/23/19 04/24/19 04/25/19 23:59 23:59 23:59 Intake Total 240 / 240 1120 / 1120 Balance 240 / 240 1120 / 1120 Laboratory Results 04/24/19 16:35: WBC 5.3, RBC 4.00 L, Hgb 12.4, Hct 38.8, MCV 97.0, MCH 31.0, MCHC 32.0, RDW Std Deviation 48.8 H, RDW Coeff of Shannan 13.7, Plt Count 207, MPV 11.9, Immature Gran % (Auto) 0.400, Neut % (Auto) 61.4, Lymph % (Auto) 26.3, Ford % (Auto) 8.9, Eos % (Auto) 2.1, Baso % (Auto) 0.9, Absolute Neuts (auto) 3.2, Absolute Lymphs (auto) 1.39, Nucleated RBC % 0 04/24/19 16:35: Sodium 136, Potassium 3.4 L, Chloride 98, Carbon Dioxide 31.0, Anion Gap 7, BUN 21 H, Creatinine 1.26 H, Estim Creat Clear Calc 49.64, Est GFR (MDRD) Af Amer 57 L, Est GFR (MDRD) Non-Af 47 L, BUN/Creatinine Ratio 16.7, Glucose 89, Calcium 9.5, Troponin I 0.015 04/24/19 19:57: Troponin I < 0.015 04/24/19 22:48: Troponin I 0.019 04/25/19 05:15: WBC 5.0, RBC 3.47 L, Hgb 10.7 L, Hct 33.9 L, MCV 97.7, MCH 30.8, MCHC 31.6 L, RDW Std Deviation 49.0 H, RDW Coeff of Shannan 13.8, Plt Count 189, MPV 12.0, Immature Gran % (Auto) 0.400, Neut % (Auto) 62.2, Lymph % (Auto) 24.9, Ford % (Auto) 9.7, Eos % (Auto) 1.8, Baso % (Auto) 1.0, Absolute Neuts (auto) 3.1, Absolute Lymphs (auto) 1.24, Nucleated RBC % 0 04/25/19 05:15: Sodium 140, Potassium 4.5, Chloride 105, Carbon Dioxide 29.0, Anion Gap 6, BUN 24 H, Creatinine 1.28 H, Estim Creat Clear Calc 48.86, Est GFR (MDRD) Af Amer 56 L, Est GFR (MDRD) Non-Af 46 L, BUN/Creatinine Ratio 18.8, Glucose 81, Calcium 8.8 Code Visit OBSV E&M: 16514 Observation care discharge
--- NOTE | 2019-04-25 12:46 | PHA.DC.MR ---
Pharmacy Service has performed discharge medication reconciliation for this patient. Home Medications Ranitidine [Zantac] 150 mg PO BID 07/05/15 Metoprolol Tartrate [Lopressor (beta miriam)] 50 mg PO BID 05/16/16 Apixaban [Eliquis] 5 mg PO BID #0 tab 05/23/16 oxaprozin 600 mg tablet 600 mg PO BID 30 Days #60 04/27/17 furosemide 40 mg tablet 40 mg PO BID #180 tab 07/02/18 diltiazem HCl 180 mg capsule,24 hr,extended release 180 mg PO DAILY #90 cap 03/17/19 Amoxicillin/Potassium Clav [Augmentin 875-125 Tablet] 1 ea PO BID 04/24/19 Atorvastatin Calcium 40 mg PO QHS 04/24/19 Codeine Phosphate/Guaifenesin [Codeine-Guaifen 10-100 mg/5 ml] 10 ml PO Q4H PRN PRN 04/24/19 Doxepin HCl 50 mg PO DAILY 04/24/19 Fluoxetine HCl 60 mg PO DAILY 04/24/19 Gabapentin [Neurontin] 100 mg PO BID PRN PRN 04/24/19 Gabapentin [Neurontin] 300 mg PO TID 04/24/19 Levothyroxine Sodium [Synthroid] 75 mcg PO DAILY 04/24/19 Potassium Chloride [Klor-Con M20] 20 meq PO BID 04/24/19 Prednisone 10 mg PO UD 04/24/19 The patient's discharge medication list was reviewed for discrepancies and discrepancies were resolved.
== END 2019-04-25 11:41 | disposition home or self-care (01) ==
LOC: ED 16:55 → PCU 19:14
PROVIDERS: Admitting Provider Student in an Organized Health Care Education/Training Program; Emergency Provider Emergency Medicine; PCP Family Medicine Geriatric Medicine; Visit Provider Internal Medicine
DX: R07.89 Other chest pain (principal); R06.02 Shortness of breath; J40 Bronchitis, not specified as acute or chronic; I50.32 Chronic diastolic (congestive) heart failure; I48.20 Chronic atrial fibrillation, unspecified; I11.0 Hypertensive heart disease with heart failure; G47.33 Obstructive sleep apnea (adult) (pediatric); E11.9 Type 2 diabetes mellitus without complications; M19.90 Unspecified osteoarthritis, unspecified site; E03.9 Hypothyroidism, unspecified; E66.01 Morbid (severe) obesity due to excess calories; Z68.42 Body mass index [BMI] 45.0-49.9, adult; Z71.3 Dietary counseling and surveillance; Z79.899 Other long term (current) drug therapy; Z79.01 Long term (current) use of anticoagulants; Z79.52 Long term (current) use of systemic steroids; F32.9 Major depressive disorder, single episode, unspecified; Z87.891 Personal history of nicotine dependence; S70.12XD Contusion of left thigh, subsequent encounter; X58.XXXD Exposure to other specified factors, subsequent encounter
CPT/HCPCS: 36415; 71045; 78452; 80048; 84484; 85025; 93005; 93017; 93971; 96360; 99218; 99285; A9500; J7030; A4216; G0378; J2785

== ENCOUNTER 2019-05-09 11:13 | Emergency (ER) | payer OTHER, SELFPAY ==
[2019-04-24 18:45] VITALS: BMI 21.4
[2019-05-09 11:13] VITALS: BP 119/87; PULSE 82; RESP 18; TEMP 36.6; O2SAT 96; BMI 47.0
[2019-05-09 11:22] VITALS: O2SAT 95
--- NOTE | 2019-05-09 11:27 | EKG12_ITS ---
Test Reason : FLUID BUILDUP Blood Pressure : / mmHG Vent. Rate : 067 BPM Atrial Rate : 062 BPM P-R Int : 000 ms QRS Dur : 108 ms QT Int : 390 ms P-R-T Axes : 000 058 264 degrees QTc Int : [address] & T wave abnormality, consider inferior ischemia ST & T wave abnormality, consider anterolateral ischemia Abnormal ECG Confirmed by BOB RAMÍREZ, SANTA ([id number]), editorial specialist CONSTANZA GRIJALVA ([id number]) on 05/12/2019 3:24:26 PM Referred By: MANISH Confirmed By:SANTA ROJAS MD
[2019-05-09 11:29] VITALS: O2SAT 95
--- NOTE | 2019-05-09 11:30 | ED.VISSUMM ---
- ER Visit Summary Date of Service: 05/09/19 Chief Complaint: Shortness of breath History of Present Illness: The patient is a 53 F of A. fib on Eliquis, prior CHF and hypertension. Patient states last night she felt like she was mildly short of breath. But was able to lie supine sleep. Mild cough. No fever no chills. No hemoptysis. No chest pain. She was admitted a week ago for chest pain. Physical Examination: White female no acute distress vital signs are stable she is afebrile. Her pulse ox 96% on room air no signs of hypoxia. H EENT exam unremarkable. Moist mucous membranes. Neck nontender no JVD. Lungs clear to auscultation bilaterally. Heart regular rhythm rate about 80 no murmur. Chest wall nontender. Abdomen soft nontender. Normal bowel sounds no peritoneal signs. Patient is moving all 4 extremities. Neurovascularly intact. Calves are nontender. There is no pitting edema. Neurologically she is awake alert with no focal motor deficits. Test Results: Chest x-ray 2 view shows no acute abnormality as read both by the radiologist and myself. No infiltrate. No failure. EKG shows A. fib rate of 67 she is a chronic history of A. fib. Is unchanged from prior EKG 2 weeks ago. CBC shows white count 8. Chronic anemia with a hemoglobin 10.7 which is her baseline. Chemistries unremarkable potassium was low at 2.8. Creatinine is 1.43 which again is her baseline. Normal gap. Troponin normal. BNP slightly elevated to 33. Emergency Department Course and Treatment: Patient with dyspnea consider acute exacerbation of CHF. Clinically pretty benign exam. She is on Eliquis the blood thinner I am not concerned with this being a PE. P.o. potassium prior to discharge. Repeat exam patient is doing well at 1315 p.m. And I went over her test results. She is comfortable being discharged to home. Treatment Plan: Follow-up with your doctor. Continue her current medications. Return to the ER if worse. Disposition: Discharge Impression: Acute dyspnea Chronic A. fib on Eliquis Mild hypokalemia This note was generated with [employer] dictation software. It may contain incorrect words, spelling, and punctuation that were not noted in review of the chart prior to signing ED Disposition - Plan for ED Patient: Referrals: Nabor Garcia Chi, MD [Primary Care Provider] -
[2019-05-09 11:54] LABS: Absolute Lymphocyte Count 1.74 X10^3/uL (0.83-4.51); Absolute Neutrophil Count 6.1 X10^3/uL (2.0-7.7); Basophil# 0.05 X10^3/uL; Basophil% 0.6 % (0-1); Eosinophil# 0.14 X10^3/uL; Eosinophils% 1.6 % (0-5); Hemoglobin 10.7 g/dL (12.0-15.0); Lymphocyte # 1.74 X10^3/ul (4.0); Mean Corp Hgb Conc 31.5 g/dL (32-36); Mean Corpuscular Hgb 30.5 pg (27.0-32.0); Mean Corpuscular Volume 96.9 fL (81-99); Mean Platelet Vol. 12.5 fl (6.2-12.0); Monocyte# 0.61 X10^3/uL; NRBC Flagged by Analyzer 0 % (0-5); Neutrophil # 6.08 X10^3/uL (2.7-7.7); Neutrophil % 69.9 % (47-70); Platelet Count 192 K/mm3 (150-450); RBC Distribution Width CV 13.4 % (11.6-14.6); RBC Distribution Width SD 47.9 fl (35.1-43.9); Red Blood Count 3.51 M/mm3 (4.2-5.4); White Blood Count 8.7 K/mm3 (4.4-11.0)
--- NOTE | 2019-05-09 12:06 | RAD_ITS ---
STUDY: X-RAY CHEST REASON FOR EXAM: Female, 53 years old. Shortness of breath. Peripheral edema. History of hypertension and atrial fibrillation. TECHNIQUE: Frontal and lateral views of the chest. COMPARISON: April 24, 2019 FINDINGS: Stable elevation of the right hemidiaphragm with atelectasis in the right middle and lower lobes. There is no demonstrated pleural abnormality. Stable cardiomegaly. Normal mediastinum and sen. Prominent central pulmonary arteries unchanged. There is atherosclerotic calcification of the aortic arch with tortuosity. Normal visualized thoracic spine. Normal visualized ribs, clavicles, and shoulders. There is no demonstrated abnormality of the visualized soft tissue structures of the upper abdomen. RAD/Chest PA and Lateral IMPRESSION: Stable chest with no acute superimposed finding. Electronically Signed: Rj Duvall MD at 12:29 EST , Service support ,
[2019-05-09 12:17] VITALS: O2SAT 94
[2019-05-09 12:18] LABS: Anion Gap 5 (5-15); BUN 30 mg/dL (7-18); Calcium,Total 8.9 mg/dL (8.5-10.1); Chloride 106 mmol/L (98-107); Creatinine, Serum 1.43 mg/dL (0.55-1.02); EST Glomerular Filtration Rate 41 mL/min (>60); Est Glom Filt Rate - Afr Amer 49 mL/min (>60); Estimated Creatinine Clearance 43.74 ml/min; Glucose 106 mg/dL (74-106); Potassium 2.8 mmol/L (3.5-5.1); Sodium Level 141 mmol/L (136-145)
[2019-05-09 12:21] VITALS: BP 130/61; PULSE 75; RESP 20; O2SAT 90
--- NOTE | 2019-05-09 13:20 | ED.DEP ---
ED Disposition - Plan for ED Patient: Disposition: Home or Assisted Living Instructions: ED Dyspnea Referrals: Nabor Garcia Chi, MD [Primary Care Provider] - 3-5 Days Additional Instructions: Continue on your current medications. Your potassium is low today at 2.8. That needs to be rechecked in several weeks to ensure is improving.
[2019-05-09 13:31] VITALS: BP 125/79; PULSE 65; RESP 18; O2SAT 99
== END 2019-05-09 13:32 | disposition home or self-care (01) ==
PROVIDERS: Emergency Provider Emergency Medicine; PCP Family Medicine Geriatric Medicine
DX: R06.00 Dyspnea, unspecified (principal); I48.20 Chronic atrial fibrillation, unspecified; E87.6 Hypokalemia; I11.0 Hypertensive heart disease with heart failure; I50.9 Heart failure, unspecified; R05 Cough; Z79.01 Long term (current) use of anticoagulants; Z79.899 Other long term (current) drug therapy
CPT/HCPCS: 71046; 80048; 83880; 84484; 85025; 93005; 99284; A4216

== ENCOUNTER 2019-06-09 11:00 | Outpatient (RCR) | payer OTHER, SELFPAY ==
[2019-04-24 18:45] VITALS: BMI 21.4
--- NOTE | 2019-05-15 11:54 | HP.PTEVAL ---
Patient's Visit Information MARY ABEL is a 53 year old F referred to Physical Therapy by Gordon Villegas DO with a diagnosis of EDUARDO KNEE OA. Date of Evaluation: 05/15/19 Physical Therapist: Ivette Feliciano PT, Cert MDT - Visit Plan Frequency: 3x /Week Duration: 4 Weeks Plan: AQUATIC THERAPY FOR PAIN RELEIF, POSTURE CORRECTION/STRENGTHENING, INSTRUCTION IN APPROPRIATE BODY MECHANICS AND ACTIVITY MODIFICATIONS. DLS STARTING WITH A NEUTRAL SPINE PROGRESSING ROM TOLERATED. EDUARDO LE ROM, STRETCHING AND STRENGTHENING. HEP INSTRUCTION. - Subjective Findings: Work/Leisure: UNEMPLOYEED. Disability: YES - SINCE 2018 - FOR HEART DZ AND KNEES. Present symptoms: EDUARDO LEG WEAKNESS AND EDUARDO LE NERVE PAIN ALONG WITH EDUARDO KNEE PAIN. Present since: OVER A YEAR. Pain Scale: WORST 9/10, LEAST 2/10. Currently: 5/10. Commenced as a result of: NO APPARENT REASON - INACTIVITY. Symptoms at onset: EDUARDO KNEE PAIN. Worse: USING THEM. Better: NOT USING THEM. MEDICINES. Disturbed sleep: NO. Previous history/Previous treatment: EDUARDO KNEE CORTISONE SHOTS - HELPED. LAST SHOTS WERE MAR 2019. Gait: PAIN IN LEGS WALKING. DISTANCE AND TIME LIMITED. PAINFUL. SLOW. USES CANE. HAS WALKER BUT DOESN'T USE IT. Accidents: 5 FALLS IN THE LAST YEAR - LEGS GIVE OUT. Unexplained weight loss: NO. Imaging: EDUARDO KNEE X-RAYS - STATES EDUARDO KNEE REPLACEMENTS RECOMMENDED BUT CAN NOT GET SURGERY UNTIL SHE GETS DOWN TO A CERTAIN BMI. PMH: CHRONIC A-FIB, CHF, DEPRESSION, ANXIETY. Recent major surgery: RIGHT LEG INFECTED HEMATOMA REMOVED - SCARRING. - Objective Sitting/Standing Posture: POOR. Other Observations: INDEP SLOW ANTALGIC GAIT INTO PT WITH A STRAIGHT CANE. COULD NOT MAKE IT ALL THE WAY BACK TO THE TREATMENT ROOM WITHOUT STOPPING TO REST. Motor deficit: EDUARDO LE STRENGTH GROSSLY 4/5 WITH MMT'ING. Sensory deficit: EDUARDO LE LIGHT TOUCH SENSATION IS INTACT AND SYMMETRICAL. ROM deficit: RIGHT KNEE -13 DEG EXT TO 91 DEG FLEX. LEFT KNEE -10 DEG TO 102 DEG FLEX. Core strength: POOR. Palpation: MILD TENDERNESS EDUARDO ANTERIOR KNEES. - Goals Goal 1:: DECREASE C/O EDUARDO KNEE PAIN Goal Time Frame: 4-6 Weeks Goal 2:: INCREASE FUNCTIONAL ROM OF EDUARDO LE'S. Goal Time Frame: 4-6 Weeks Goal 3:: INCREASE FUNCTIONAL STRENGTH OF EDUARDO LE'S. Goal Time Frame: 4-6 Weeks Goal 4:: PATIENT WILL INDEP WITH A WATER EX PROGRAM AND HEP FOR CONTINUED IMPROVEMENT ONCE FORMAL PHYSICAL THERAPY CONCLUDES. Goal Time Frame: 4-6 Weeks - Rehabilitation Potential Rehabilitation Potential: Fair - Anticipated Interventions Patient/Client Instruction: Educate patient on: Condition, Plan of Care, Risk Factors, Benefits of Fitness Program For the Purpose of:: To improve self management Therapeutic Exercise to Include: Strength training, Endurance training, Balance training, Body mechanics, Postural training, Flexibilty training, Gait and locomotor training, Neuromotor development, In an aquatic setting, Dynamic Lumbar Stabilization For the Purpose of:: To decrease pain, To decrease swelling/inflammation, To increase ROM, To improve muscle performance and motor function, To increase tolerance to activity/condition/position, To improve ability of physical actions for home/community/work/leisure, To improve gait and locomotor functions Thank you for the opportunity to evaluate your patient. For Medicare and Medicare HMO plans, please review the plan of care and approve it. It will need to be FAXED BACK to us at [phone] for Medicare purposes. For Medicare only, by signing this I certify the plan of care. Please let me know if there are questions or concerns regarding this plan of care. Physician Signature: Date:
== END 2019-06-09 19:00 | disposition home or self-care (01) ==
LOC: PT 11:00
PROVIDERS: PCP Family Medicine Geriatric Medicine; Referring Provider Orthopaedic Surgery; Visit Provider Orthopaedic Surgery
DX: M17.0 Bilateral primary osteoarthritis of knee (principal)
CPT/HCPCS: 97113; 97162; 97164

== ENCOUNTER → 2019-09-30 13:21 | Outpatient (CLI) | payer MEDICARE, SELFPAY ==
[2019-04-17 09:54] VITALS: BMI 48.7
[2019-07-11 11:11] VITALS: BMI 47.0
[2019-09-30 17:41] LABS: Absolute Lymphocyte Count 1.72 X10^3/uL (0.83-4.51); Absolute Neutrophil Count 2.5 X10^3/uL (2.0-7.7); Basophil# 0.05 X10^3/uL; Eosinophil# 0.14 X10^3/uL; Eosinophils% 2.9 % (0-5); Hematocrit 38.3 % (37-47); Hemoglobin 11.3 g/dL (12.0-15.0); Lymphocyte # 1.72 X10^3/ul (4.0); Lymphocyte % 35.8 % (19-41); Mean Corp Hgb Conc 29.5 g/dL (32-36); Mean Corpuscular Hgb 27.6 pg (27.0-32.0); Mean Corpuscular Volume 93.4 fL (81-99); Mean Platelet Vol. 12.1 fl (6.2-12.0); Monocyte# 0.38 X10^3/uL; Monocyte% 7.9 % (0-10); NRBC Flagged by Analyzer 0 % (0-5); Neutrophil # 2.49 X10^3/uL (2.7-7.7); Platelet Count 210 K/mm3 (150-450); RBC Distribution Width CV 14.7 % (11.6-14.6); RBC Distribution Width SD 50.7 fl (35.1-43.9); White Blood Count 4.8 K/mm3 (4.4-11.0)
[2019-09-30 18:25] LABS: AST(SGOT) 11 U/L (15-37); Alanine Aminotransfer ALT/SGPT 17 U/L (13-56); Albumin, Serum 3.6 g/dL (3.2-5.0); Alkaline Phosphatase 84 U/L (45-117); Anion Gap 6 (5-15); BUN 35 mg/dL (7-18); BUN/Creat Ratio 25.4 RATIO (10-20); Calcium,Total 8.8 mg/dL (8.5-10.1); Chloride 102 mmol/L (98-107); Creatinine, Serum 1.38 mg/dL (0.55-1.02); EST Glomerular Filtration Rate 42 mL/min (>60); Est Glom Filt Rate - Afr Amer 51 mL/min (>60); Globulin 3.6 g/dL (2.2-4.2); Glucose 85 mg/dL (74-106); Potassium 3.9 mmol/L (3.5-5.1); Protein, Total 7.2 g/dL (6.4-8.2); Sodium Level 140 mmol/L (136-145); Thyroid Stim Hormone (TSH) 6.59 uIU/mL (0.358-3.74)
== END ==
PROVIDERS: PCP Family Medicine Geriatric Medicine; Visit Provider Family Medicine Geriatric Medicine
DX: I10 Essential (primary) hypertension (principal); E03.9 Hypothyroidism, unspecified; N39.0 Urinary tract infection, site not specified
CPT/HCPCS: 36415; 80053; 84443; 85025; 87086; 87088; 87186

== ENCOUNTER → 2020-01-06 11:22 | Outpatient (CLI) | payer MEDICARE, MEDICAID, SELFPAY ==
[2020-01-06 11:22] VITALS: BMI 48.7
[2020-01-06 12:38] LABS: Absolute Lymphocyte Count 1.67 X10^3/uL (0.83-4.51); Absolute Neutrophil Count 2.5 X10^3/uL (2.0-7.7); Basophil# 0.07 X10^3/uL; Basophil% 1.5 % (0-1); Eosinophils% 2.1 % (0-5); Hematocrit 39.4 % (37-47); Hemoglobin 12.2 g/dL (12.0-15.0); Lymphocyte # 1.67 X10^3/ul (4.0); Lymphocyte % 34.6 % (19-41); Mean Corpuscular Hgb 27.9 pg (27.0-32.0); Mean Platelet Vol. 12.6 fl (6.2-12.0); Monocyte# 0.43 X10^3/uL; Monocyte% 8.9 % (0-10); NRBC Flagged by Analyzer 0 % (0-5); Neutrophil # 2.54 X10^3/uL (2.7-7.7); Neutrophil % 52.7 % (47-70); Platelet Count 226 K/mm3 (150-450); RBC Distribution Width SD 49.8 fl (35.1-43.9); Red Blood Count 4.38 M/mm3 (4.2-5.4); White Blood Count 4.8 K/mm3 (4.4-11.0)
[2020-01-06 13:06] LABS: AST(SGOT) 14 U/L (15-37); Alanine Aminotransfer ALT/SGPT 11 U/L (13-56); Alkaline Phosphatase 98 U/L (45-117); Anion Gap 7 (5-15); BUN 41 mg/dL (7-18); BUN/Creat Ratio 20.8 RATIO (10-20); Calcium,Total 9.6 mg/dL (8.5-10.1); Chloride 101 mmol/L (98-107); Creatinine, Serum 1.97 mg/dL (0.55-1.02); EST Glomerular Filtration Rate 28 mL/min (>60); Est Glom Filt Rate - Afr Amer 34 mL/min (>60); Globulin 3.9 g/dL (2.2-4.2); Glucose 111 mg/dL (74-106); Potassium 3.2 mmol/L (3.5-5.1); Protein, Total 7.9 g/dL (6.4-8.2); Sodium Level 137 mmol/L (136-145); Thyroid Stim Hormone (TSH) 1.59 uIU/mL (0.358-3.74); Vitamin D,25 Hydroxy 18.3 ng/mL
== END ==
PROVIDERS: PCP Family Medicine Geriatric Medicine; Visit Provider Family Medicine Geriatric Medicine
DX: I10 Essential (primary) hypertension (principal); E55.9 Vitamin D deficiency, unspecified
CPT/HCPCS: 36415; 80053; 82306; 84443; 85025

== ENCOUNTER → 2020-01-06 17:47 | Outpatient (CLI) | payer MEDICARE, MEDICAID, SELFPAY ==
[2020-01-06 11:22] VITALS: BMI 48.7
== END ==
PROVIDERS: PCP Family Medicine Geriatric Medicine; Referring Provider Family Medicine Geriatric Medicine; Visit Provider Family Medicine Geriatric Medicine
DX: R68.83 Chills (without fever) (principal); I10 Essential (primary) hypertension; E55.9 Vitamin D deficiency, unspecified
CPT/HCPCS: 36415; 80053; 82306; 84443; 85025; 87635; C9803; U0003

== ENCOUNTER → 2020-01-27 09:25 | Outpatient (CLI) | payer MEDICARE, MEDICAID, SELFPAY ==
[2020-01-06 11:22] VITALS: BMI 48.7
== END ==
PROVIDERS: PCP Family Medicine Geriatric Medicine; Referring Provider Family Medicine Geriatric Medicine; Visit Provider Family Medicine Geriatric Medicine
DX: R06.89 Other abnormalities of breathing (principal)
CPT/HCPCS: 87633; 87635; C9803; U0003

== ENCOUNTER → 2020-01-27 16:13 | Outpatient (CLI) | payer MEDICARE, MEDICAID, SELFPAY ==
[2020-01-06 11:22] VITALS: BMI 48.7
--- NOTE | 2020-01-27 16:45 | RAD_ITS ---
STUDY: X-RAY CHEST REASON FOR EXAM: Female, 54 years old. SOB X 2 WEEKS TECHNIQUE: PA and lateral COMPARISON: 05/09/2019 FINDINGS: There is mild diffuse interstitial thickening most pronounced in the lower lobes. There is elevated right hemidiaphragm and discoid atelectasis in the right lower lobe.. There is no demonstrated pleural abnormality. Normal size heart. Normal mediastinum and sen. Normal visualized pulmonary arteries. Normal visualized aortic arch and descending thoracic aorta. Normal visualized thoracic spine. Normal visualized ribs, clavicles, and shoulders. There is no demonstrated abnormality of the visualized soft tissue structures of the upper abdomen. No significant change since prior study RAD/Chest PA and Lateral IMPRESSION: Mild chronic interstitial changes. Elevated right hemidiaphragm and discoid atelectasis at the right base Electronically Signed: Tung Salcedo MD at 17:03 EDT , Service support ,
[2020-01-27 17:08] LABS: Absolute Lymphocyte Count 1.27 X10^3/uL (0.83-4.51); Absolute Neutrophil Count 2.6 X10^3/uL (2.0-7.7); Basophil# 0.03 X10^3/uL; Basophil% 0.7 % (0-1); Eosinophil# 0.12 X10^3/uL; Eosinophils% 2.7 % (0-5); Hematocrit 34.3 % (37-47); Hemoglobin 10.1 g/dL (12.0-15.0); Lymphocyte # 1.27 X10^3/ul (4.0); Lymphocyte % 28.9 % (19-41); Mean Corp Hgb Conc 29.4 g/dL (32-36); Mean Platelet Vol. 12.2 fl (6.2-12.0); Monocyte# 0.37 X10^3/uL; Monocyte% 8.4 % (0-10); NRBC Flagged by Analyzer 0 % (0-5); Neutrophil % 59.3 % (47-70); Platelet Count 192 K/mm3 (150-450); RBC Distribution Width SD 51.7 fl (35.1-43.9); Red Blood Count 3.61 M/mm3 (4.2-5.4); White Blood Count 4.4 K/mm3 (4.4-11.0)
[2020-01-27 17:26] LABS: Anion Gap 5 (5-15); BUN 14 mg/dL (7-18); BUN/Creat Ratio 12.8 RATIO (10-20); Chloride 103 mmol/L (98-107); Creatinine, Serum 1.09 mg/dL (0.55-1.02); EST Glomerular Filtration Rate 55 mL/min (>60); Est Glom Filt Rate - Afr Amer 67 mL/min (>60); Glucose 91 mg/dL (74-106); Potassium 4.6 mmol/L (3.5-5.1); Sodium Level 139 mmol/L (136-145)
[2020-01-27 18:31] LABS: M R Staph aureus DNA By PCR Negative (Negative); Specimen Processing Control PASS; Staph aureus DNA By PCR NEGATIVE (Negative)
[2020-01-27 18:32] LABS: Probe Check PASS
== END ==
LOC: POLAB3 16:13 → RAD 16:43
PROVIDERS: PCP Family Medicine Geriatric Medicine; Referring Provider Family Medicine Geriatric Medicine; Visit Provider Family Medicine Geriatric Medicine
DX: R06.89 Other abnormalities of breathing (principal); R06.02 Shortness of breath; B95.62 Methicillin resistant Staphylococcus aureus infection as the cause of diseases classified elsewhere
CPT/HCPCS: 36415; 71046; 80048; 83880; 85025; 87070; 87077; 87186; 87205; 87633; 87635; 87640; C9803; U0003

== ENCOUNTER → 2020-02-04 11:17 | Outpatient (CLI) | payer MEDICARE, MEDICAID, SELFPAY ==
[2020-01-06 11:22] VITALS: BMI 48.7
[2020-02-04 12:57] LABS: Anion Gap 10 (5-15); BUN 26 mg/dL (7-18); BUN/Creat Ratio 16.9 RATIO (10-20); Calcium,Total 9.1 mg/dL (8.5-10.1); Chloride 101 mmol/L (98-107); Creatinine, Serum 1.54 mg/dL (0.55-1.02); EST Glomerular Filtration Rate 37 mL/min (>60); Est Glom Filt Rate - Afr Amer 45 mL/min (>60); Glucose 92 mg/dL (74-106); Potassium 3.4 mmol/L (3.5-5.1); Sodium Level 140 mmol/L (136-145)
== END ==
PROVIDERS: PCP Family Medicine Geriatric Medicine; Visit Provider Family Medicine Geriatric Medicine
DX: E87.6 Hypokalemia (principal)
CPT/HCPCS: 36415; 80048

== ENCOUNTER 2020-02-10 15:31 | Inpatient (IN) | payer MEDICARE, SELFPAY ==
[2020-01-06 11:22] VITALS: BMI 48.7
[2020-02-10] VITALS (7 sets, daily range): BP systolic 90–108; BP diastolic 48–73; PULSE 97–116; RESP 12–18; TEMP 36.8–37; O2SAT 91–100; BMI 51.7
--- NOTE | 2020-02-10 15:22 | PN_ITS ---
Subjective: This is a 54 yo female with an extensive PMH as noted below who presented to Dr. Davis's office this afternoon and was found to have a large hematoma in her L distal LE and he admitted her directly with concern over infected hematoma and she is at risk for developing compartment syndrome of the L LE. On evening of last week (02/05/2020) she was walking into a dark room and didn't turn the light on and had a mechanical fall over a shredder. She states that her legs got tangled up and that while she is sore all over, her legs have been most sore. Her L LE started swelling up and has gotten significantly larger with a large hematoma at the L calf. The circumference of the L is markedly larger than the R. She states that she has no other significant injuries. Her R leg is painful as well at the knee and the ankle. She states that she had xrays and there were no fractures. Her last dose of Eliquis was on 02/07/2020. Per d/w Dr. Davis he will take her to the OR in a day or 2 and she has been placed on broad spectrum antibiotics. She currently appears comfortable. Vitals/I&O's: Body Mass Index (BMI) 48.7 General: Alert, Oriented x3, Cooperative, No apparent distress, Well developed, Well nourished HEENT: Atraumatic, PERRLA, EOMI, TM's Clear, EAC Clear, - - abrasion on bridge of nose Oral: Moist Mucosa, No Gingival or Mucosal Lesions/ Ulcerations, - - mallampati 3, tongue is smooth Neck: Supple, No JVD, Negative Carotid Bruits, Negative Hepatojugular Reflux, No Nodes, No Nuchal Rigidity, Trachea Midline, Thyroid Normal Size and Texture Lungs: Clear to auscultation, Normal air movement, No rhonchi, No wheeze, No rales, - - distant 2/2 body habitus Cardiovascular: Regular rate, Normal S1, Normal S2, No murmurs, No Ectopic Activity, No rub noted, No Gallop, - - irreg rhythm Abdomen: Bowel Sounds Present, Soft, Non Tender, Non-Distended, No Hepato- splenomegaly, Obese, No hernias noted Extremities: No clubbing, No cyanosis, Capillary Refill Less than 3 Seconds, Edema - L LE edema-pitting 1-2 +, Peripheral Pulses Normal, Tenderness - L calf Skin: No rashes, No breakdown, - - scattered ecchymosis B UE, ant chest wall, L LE, face Musculoskeletal: No Tenderness to Palpation of Joints or Extremities, No Muscle Wasting Lymphatic: No Cervical, Supraclavicular, or Inguinal Adenopathy Neurological: Cranial nerves II-XII grossly intact, Deep Tendon Reflexes 2+/4 and Symmetrical, Neuro grossly intact, Muscle tone normal, Sensory exam intact to light touch and pain, Coordination normal, - - decreased strength B LE 2/2 pain Psych/Mental Status: Normal Affect, Appropriate, Alert and oriented to time, place, person, mood and affect Medical Necessity - Tobacco Use Smoking Status: Former smoker Assessment/Plan All Active Problems (Last Updated 02/10/20 @ 14:39 by Fina Green) Frequent falls (Acute) Bronchitis (Resolved) Cellulitis (Resolved) Chest pain (Resolved) Dyspnea (Resolved) Hematoma of leg (Resolved) Open wound of right lower leg (Resolved) Pneumonia (Resolved) Pulmonary edema (Resolved) Secondary pulmonary arterial hypertension (Resolved) Sepsis (Resolved) Large L Calf Hematoma s/p Mechanical Fall -OR in next day or [address] Davis -CT area -Check Hgb -hold DOAC and Daypro -NSQIP surgical risk is below average for all indices except for UTI which is average -had a neg stress test this year (04/2019) -paper on chart -Broad spectrum abx in case of infected hematoma -oxy/dilaudid for pain -prn Miralax with scheduled Senna -R LE neurochecks R LE Leg Pain -Xray neg -PT/OT Chronic Anemia -last hbg was 10.1 on 01/27/2020 and this appears close to baseline -CBC pending HTN/HPL -continue Statin -continue Metoprolol -continue Lasix -continue Diltazem Chronic A-fib -last dose of Eliquis was on Sunday02/07/2020 -BB and CCB for rate control HFpEF -ECHO from 2018 shows EF of 50% -suspect this is mostly from R sided issues -continue lasix [id number] -SSI -Carb controlled diet -last A1c in the system was 5.5 in 2018 -would recommend f/u as outpt if has not had once since then JASMIN -BIPAP at HS 01/10 with 2 L bleed of O2 PAH WHO Group 2-3 -diuresis--> home meds COPD -pt is not on chronic inhalers -remote h/o tobacco abuse -PRN nebs Depression -continue Fluoxetine GERD -on Zantac at home -will do Famotidine here 20 mg daily MO -BMI 47 -recommend wgt loss DVT Prophylaxis -SCD's R LE only -hold Heparin/LMWH for now with large L LE Hematoma -pt on DOAC at baseline Code Status -Full Inpatient E&M: 96822 Subs Hosp L3
[2020-02-10] MEDS: oxyCODONE 5 MG Tablet 10 MG PO ×2 (16:10→20:38)
--- NOTE | 2020-02-10 16:25 | PCM.HP.BLA ---
History and Physical Date of Admission: 02/10/20 HISTORY OF PRESENT ILLNESS Patient is a 54 year old female who fell at home last [place], 02/06/20, when she tripped over a shredder that she did not see. She hit her left leg, right wrist and her face. She went to the ED on 02/07/20 where they did an xray and CT scan of her head. According to the patient the x-ray showed no fracture and the CT was normal. She was discharged on Keflex and Doxycycline. Jayesh wrap was applied for compression. She has experienced increasing pain. She comes in today for further evaluation and treatment. 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 Skin necrosis Hematoma of left lower leg JASMIN (obstructive sleep apnea) Chronic atrial fibrillation Heart disease Heart failure Pancreatitis Chronic bronchitis Depression Diabetes type 2, controlled High blood pressure Hypothyroidism Obesity, Class III, BMI 40-49.9 (morbid obesity) Osteoarthritis Bronchitis Hematoma of leg Pneumonia Pulmonary edema Secondary pulmonary arterial hypertension PAST SURGICAL HISTORY umbilical hernia repair excision debridement and evacuation hematoma right leg skin graft right leg tonsillectomy and adenoidectomy cholecystectomy ALLERGIES No Known Allergies MEDICATIONS Ranitidine [Zantac] Metoprolol Tartrate [Lopressor (beta miriam)] Apixaban [Eliquis] diltiazem Atorvastatin Doxepin Fluoxetine Gabapentin [Neurontin] Levothyroxine Sodium [Synthroid] furosemide potassium chloride oxaprozin FAMILY HISTORY Father , age 64 CAD (coronary artery disease) Pacemaker CHF (congestive heart failure) Diabetes Heart disease Hypertension High cholesterol COPD (chronic obstructive pulmonary disease) Brother Anxiety Diabetes Heart disease Hypertension High cholesterol SOCIAL HISTORY Smoking Status: Former smoker how long ago did patient quit smokin, 1pk/day alcohol intake: former substance use type: does not use REVIEW OF SYSTEMS General - Denies fever and weight loss. She states she is feeling confused. Has fatigue. Eyes - Denies cataracts and glaucoma. ENT - Denies nasal congestion and sore throat. Has chronic sinus problems. Endocrine - Has excessive thirst and urination. Has thyroid disease. Has diet controlled diabetes. Skin - Denies suspicious lesions and skin cancer. Has traumatic painful hematoma left medial leg with overlying skin compromise. She has a history of a traumatic hematoma on her right lower leg which is now healed. Musculoskeletal - History of osteoarthritis. Has joint pain, joint stiffness, weakness of muscles and joints. Denies back pain. Neuro - Denies headaches. Cardiovascular - Denies chest pain, fatigue, and shortness of breath with exertion. Has history of HTN, heart disease, heart failure and Afib and is on Eliquis. Psych - Denies anxiety and depression. Respiratory - Denies chronic cough. Has shortness of breath and sleep apnea. History of pneumonia. Gastrointestinal - Denies nausea, vomiting, diarrhea, and constipation. History of pancreatitis and having gallbladder removed. Hematologic - States she bruises easily on her Eliquis. Genitourinary - Denies hematuria. Has urinary frequency and incontinence. PHYSICAL EXAMINATION General - Alert and oriented to person, place and time. Answers questions appropriately. HEENT - PERRL. EOMI. Throat is clear. Neck - Supple and non-tender. No cervical adenopathy. Lungs- Clear to auscultation. Heart - Regular rate and rhythm. Abdomen - Soft and non distended. Extremities - FROM. No axillary adenopathy. Radial pulses are palpable. No inguinal adenopathy. Dorsalis pedis pulses are palpable. On the left medial leg is a traumatic hematoma which is tender to palpation. Mild oozing serosanguineous drainage at the edges. Measures 20 x 20 cm. Has overlying skin compromise with some necrosis. Neuro - CN II-XII grossly intact. Psych - Normal mood and affect. ASSESSMENT 1. Traumatic painful hematoma left medial leg with overlying skin compromise and some necrosis. 2. residential use of anticoagulants - Eliquis. 3. Frequent falls. 4. History of MRSA. PLAN She was started on Keflex and Doxycycline from the ED. Recommend admission to the hospital to begin IV antibiotics. With her history of MRSA, will start Vancomycin and add Zosyn to minimize infection. The hematoma is large with overlying skin compromise with some skin necrosis. It is too large to absorb on its own. It will need operative intervention with surgical preparation traumatic painful hematoma with incision and drainage and evacuation hematoma and excisional debridement overlying skin compromise with some skin necrosis. Will leave the wound open and begin postop wound care with the VAC. Will also continue jayesh wrap for compression. Will send tissue to Pathology for analysis and to Microbiology for culture. A positive culture will necessitate antibiotic therapy. After discharge, will followup at [facility]. If there is a plateau in the healing process, can proceed with delayed closure with skin grafting. Will consult the Hospitalist group for medical management. During her hospital stay, will obtain a CT scan to look at the extent of the hematoma to look for any bleeding component deep to the muscles. Patient was informed of the risks and complications of the procedure including alternatives to surgery. These were discussed with the patient personally. Patient voices understanding and wishes to proceed. I anticipate some blood loss in the hematoma. Will check a Hgb, and if the Hgb is low, will need PRBC. We discussed the current risks associated with COVID-19. While it is understood that there is a community spread of COVID-19, the risk of eli COVID-19 while at [facility] ([facility]) is very low; however, the risk cannot be completely mitigated because of the community spread of the disease. We discussed in detail the risk of exposure to and/or potential harm posed by the COVID-19 virus with having a surgery/procedure at this time versus the risk of delaying the surgery/procedure. It is not possible to know either the risk of delaying the surgery or procedure or chance of getting an infection with perfect accuracy, but a joint decision was made to proceed at this time with the scheduled surgery/procedure as indicated on the consent form. Patient was notified that we will need to comply with any screening or testing [facility] wishes to perform or that surgery may be delayed for any positive results. Discussed with the patient that I was tested for COVID-19 on 10/09/19 which was negative and on 10/23/19 which was negative and on 11/06/19 which was negative and on 11/20/19 which was negative and on 12/04/19 which was negative and on 12/25/19 which was negative and on 01/15/20 which was negative. My testing regimen at this time is to be COVID-19 tested every 2 weeks or so.
--- NOTE | 2020-02-10 17:00 | CT_ITS ---
Exam: CT of the left leg. HISTORY: Trauma. Fall. COMPARISON: None Individualized dose optimization techniques were used for this CT. FINDINGS: There is a large subcutaneous hematoma measuring 15 x 6.8 x 19.6 cm, along the medial upper leg. The hematoma is well-defined and localized to the subcutaneous fat compartment. This is compressing the muscle bundles. There is circumferential subcutaneous edema of the ankle. There is generalized atrophy of the muscle bundles. Normal appearance of the skeletal structures. CT/Extremity Lower without Contra IMPRESSION: 19.6 cm subcutaneous hematoma in the medial upper leg. Electronically Signed: Zurdo Dewey MD at 17:37 EST , Service support ,
[2020-02-10 17:06] LABS: ALB/GLOB Ratio 0.8 RATIO (0.9-2.4); AST(SGOT) 17 U/L (15-37); Alanine Aminotransfer ALT/SGPT 10 U/L (13-56); Alkaline Phosphatase 104 U/L (45-117); Anion Gap 7 (5-15); BUN 38 mg/dL (7-18); BUN/Creat Ratio 21.8 RATIO (10-20); Calcium,Total 8.8 mg/dL (8.5-10.1); Chloride 102 mmol/L (98-107); Creatinine, Serum 1.74 mg/dL (0.55-1.02); EST Glomerular Filtration Rate 32 mL/min (>60); Est Glom Filt Rate - Afr Amer 39 mL/min (>60); Estimated Creatinine Clearance 35.53 ml/min; Globulin 3.9 g/dL (2.2-4.2); Glucose 118 mg/dL (74-106); Potassium 4.9 mmol/L (3.5-5.1); Protein, Total 6.9 g/dL (6.4-8.2); Sodium Level 135 mmol/L (136-145)
[2020-02-10 17:22] LABS: Hemoglobin 6.8 g/dL (12.0-15.0); Mean Corp Hgb Conc 29.6 g/dL (32-36); Mean Corpuscular Hgb 28.2 pg (27.0-32.0); Mean Corpuscular Volume 95.4 fL (81-99); Mean Platelet Vol. 12.9 fl (6.2-12.0); Platelet Count 165 K/mm3 (150-450); RBC Distribution Width CV 15.1 % (11.6-14.6); RBC Distribution Width SD 52.3 fl (35.1-43.9); Red Blood Count 2.41 M/mm3 (4.2-5.4); White Blood Count 7.5 K/mm3 (4.4-11.0)
[2020-02-10 17:26] LABS: International Normalized Ratio 1.6; Prothrombin Time (Protime)PT. 18.9 SECONDS (11.7-14.9)
[2020-02-10 17:27] LABS: Partial Thromboplast Time 44.5 Seconds (24.1-36.2)
[2020-02-10] MEDS: Gabapentin 300 MG Capsule PO (18:05)
[2020-02-10] MEDS: Furosemide 40 MG Tablet PO (18:06)
--- NOTE | 2020-02-10 18:57 | PCM.RX.CS ---
Consult Pharmacy has been consulted to manage selected antiobiotic: Vancomycin Type of Consult: New start Suspected Infection: Skin/Soft tissue Labs: Sodium 135 mmol/L (136-145) L 02/10/20 16:31 Potassium 4.9 mmol/L (3.5-5.1) 02/10/20 16:31 Chloride 102 mmol/L (98-107) 02/10/20 16:31 Carbon Dioxide 26.0 mmol/L (21.0-32.0) 02/10/20 16:31 Anion Gap 7 (5-15) 02/10/20 16:31 BUN 38 mg/dL (7-18) H 02/10/20 16:31 Creatinine 1.74 mg/dL (0.55-1.02) H 02/10/20 16:31 Est GFR (MDRD) Af Amer 39 mL/min (>60) L 02/10/20 16:31 Est GFR (MDRD) Non-Af 32 mL/min (>60) L 02/10/20 16:31 BUN/Creatinine Ratio 21.8 RATIO (10-20) H 02/10/20 16:31 Glucose 118 mg/dL (74-106) H 02/10/20 16:31 Weight used for dosin kg Estimated Creatinine Clearance: 55.9ML/MIN Goal Trough: 10-15 mcg/mL Pharmacy Plan for Drug Dosing: Give initial load dose of 2000mg IV x1, then continue with 1000mg IV q12h. Will order a trough to be drawn before the 4th total dose. The patient's CrCl of 55.9ml/min was calculated using an adjusted body weight of 97kg. Pharmacy Service will continue to monitor and adjust dosing as required. Follow-Up Labs: Trough Vancomycin Labs to be done on [date and time ordered]: 02/12/20 06:30
[2020-02-10] MEDS: Ipratropium/Albuterol Sulfate 3 ML AMPUL.NEB INHALATION ×2 (18:58→22:25)
[2020-02-10 19:06] LABS: Bedside Glucose 115 mg/dL (70-110)
[2020-02-10] MEDS: Docusate Sodium 100 MG Capsule PO (22:37)
[2020-02-10] MEDS: Atorvastatin Calcium 40 MG Tablet PO (22:37)
[2020-02-10] MEDS: DOXEPIN HCL 50 MG CAPSULE PO (22:37)
[2020-02-10] MEDS: Famotidine 20 MG Tablet PO (22:39)
[2020-02-10] MEDS: 0.9% Saline Lock 10 ML Syringe IV (22:47)
[2020-02-10 23:06] LABS: Bedside Glucose 105 mg/dL (70-110)
[2020-02-11] VITALS (23 sets, daily range): BP systolic 94–160; BP diastolic 55–98; PULSE 86–108; RESP 12–21; TEMP 36.6–37.3; O2SAT 92–108
--- NOTE | 2020-02-11 01:47 | CPS ---
decreased o2 to 28%-nurse aware
[2020-02-11 06:01] LABS: Absolute Lymphocyte Count 1.14 X10^3/uL (0.83-4.51); Absolute Neutrophil Count 4.5 X10^3/uL (2.0-7.7); Basophil# 0.04 X10^3/uL; Basophil% 0.6 % (0-1); Eosinophil# 0.15 X10^3/uL; Eosinophils% 2.3 % (0-5); Hemoglobin 6.2 g/dL (12.0-15.0); Lymphocyte # 1.14 X10^3/ul (4.0); Lymphocyte % 17.1 % (19-41); Mean Corp Hgb Conc 29.5 g/dL (32-36); Mean Corpuscular Hgb 28.4 pg (27.0-32.0); Mean Corpuscular Volume 96.3 fL (81-99); Mean Platelet Vol. 12.5 fl (6.2-12.0); Monocyte# 0.84 X10^3/uL; Monocyte% 12.6 % (0-10); NRBC Flagged by Analyzer 0 % (0-5); Neutrophil # 4.46 X10^3/uL (2.7-7.7); Neutrophil % 66.9 % (47-70); Platelet Count 150 K/mm3 (150-450); RBC Distribution Width CV 15.4 % (11.6-14.6); RBC Distribution Width SD 53.6 fl (35.1-43.9); Red Blood Count 2.18 M/mm3 (4.2-5.4); White Blood Count 6.7 K/mm3 (4.4-11.0)
[2020-02-11] MEDS: 0.9% Saline Lock 10 ML Syringe IV ×2 (06:09→06:14)
[2020-02-11 06:11] LABS: International Normalized Ratio 1.5; Partial Thromboplast Time 44.3 Seconds (24.1-36.2); Prothrombin Time (Protime)PT. 17.3 SECONDS (11.7-14.9)
[2020-02-11] MEDS: Levothyroxine 75 MCG Tablet PO (06:17)
[2020-02-11 06:25] LABS: Anion Gap 6 (5-15); BUN 33 mg/dL (7-18); BUN/Creat Ratio 23.2 RATIO (10-20); Calcium,Total 8.8 mg/dL (8.5-10.1); Chloride 102 mmol/L (98-107); Creatinine, Serum 1.42 mg/dL (0.55-1.02); EST Glomerular Filtration Rate 41 mL/min (>60); Est Glom Filt Rate - Afr Amer 49 mL/min (>60); Estimated Creatinine Clearance 43.53 ml/min; Glucose 115 mg/dL (74-106); Potassium 4.9 mmol/L (3.5-5.1); Sodium Level 135 mmol/L (136-145)
[2020-02-11] MEDS: Vancomycin IV 1,000 MG/200 ML BAG 200 MG IV ×2 (06:36→19:41)
[2020-02-11 07:35] LABS: Bedside Glucose 93 mg/dL (70-110)
--- NOTE | 2020-02-11 07:53 | PN_ITS ---
Subjective: Patient seen and examined. She was admitted for traumatic painful hematoma of the left medial leg due to mechanical fall. Patient had also been on anticoagulation. She is currently on IV vancomycin and Zosyn due to risk of infection. Hemoglobin on admission was 6.8. Patient not transfused. Hemoglobin this morning is 6.2. Vitals/I&O's: Vital Signs Temp Pulse Resp BP Pulse Ox 99.1 F 100 17 107/66 98 02/11/20 04:16 02/11/20 05:56 02/11/20 05:56 02/11/20 04:16 02/11/20 05:56 Oxygen Flow Rate (L/min) 2 Oxygen Delivery Method Bi-pap Weight: 330 lb 3 oz Body Mass Index (BMI) 51.7 Intake and Output for Last 24 Hours 02/09/20 02/10/20 02/11/20 23:59 23:59 23:59 Intake Total 900.5 / 900.5 491.5 / 491.5 Output Total 600 / 600 Balance 900.5 / 900.5 -108.5 / -108.5 General: Alert, Oriented x3, Cooperative, No apparent distress HEENT: Atraumatic, PERRLA, EOMI, Normocephalic Oral: Dry Mucosa Neck: Supple Lungs: Clear to auscultation, Normal air movement, No rhonchi, No wheeze Cardiovascular: Regular rate, Regular Rhythm, Normal S1, Normal S2, No murmurs Abdomen: Bowel Sounds Present, Soft, Non Tender, Non-Distended, No Hepato- splenomegaly Extremities: No clubbing, No cyanosis, No edema, Capillary Refill Less than 3 Seconds Skin: - - ecchymosis of left LE, with swelling. Musculoskeletal: No Tenderness to Palpation of Joints or Extremities Lymphatic: No Cervical, Supraclavicular, or Inguinal Adenopathy Neurological: Cranial nerves II-XII grossly intact, Neuro grossly intact, Motor Exam 5/5 strength throughout Psych/Mental Status: Normal Affect, Appropriate, Alert and oriented to time, place, person, mood and affect Laboratory Results 02/10/20 16:31: WBC 7.5, RBC 2.41 L, Hgb 6.8 L, Hct 23.0 L, MCV 95.4, MCH 28.2, MCHC 29.6 L, RDW Std Deviation 52.3 H, RDW Coeff of Shannan 15.1 H, Plt Count 165, MPV 12.9 H 02/10/20 16:31: PT 18.9 H, INR 1.6, APTT 44.5 H 02/10/20 16:31: Sodium 135 L, Potassium 4.9, Chloride 102, Carbon Dioxide 26.0, Anion Gap 7, BUN 38 H, Creatinine 1.74 H, Estim Creat Clear Calc 35.53, Est GFR (MDRD) Af Amer 39 L, Est GFR (MDRD) Non-Af 32 L, BUN/Creatinine Ratio 21.8 H, Glucose 118 H, Calcium 8.8, Total Bilirubin 0.30, AST 17, ALT 10 L, Alkaline Phosphatase 104, Total Protein 6.9, Albumin 3.0 L, Globulin 3.9, Albumin/Globulin Ratio 0.8 L 02/10/20 17:35: COVID-19 ([facility]) Pending 02/10/20 18:24: POC Glucose 115 H 02/10/20 22:58: POC Glucose 105 02/11/20 05:15: WBC 6.7, RBC 2.18 L, Hgb 6.2 L, Hct 21.0 L, MCV 96.3, MCH 28.4, MCHC 29.5 L, RDW Std Deviation 53.6 H, RDW Coeff of Shannan 15.4 H, Plt Count 150, MPV 12.5 H, Immature Gran % (Auto) 0.500, Neut % (Auto) 66.9, Lymph % (Auto) 17.1 L, [place] % (Auto) 12.6 H, Eos % (Auto) 2.3, Baso % (Auto) 0.6, Absolute Neuts (auto) 4.5, Absolute Lymphs (auto) 1.14, Nucleated RBC % 0 02/11/20 05:15: Sodium 135 L, Potassium 4.9, Chloride 102, Carbon Dioxide 27.0, Anion Gap 6, BUN 33 H, Creatinine 1.42 H, Estim Creat Clear Calc 43.53, Est GFR (MDRD) Af Amer 49 L, Est GFR (MDRD) Non-Af 41 L, BUN/Creatinine Ratio 23.2 H, Glucose 115 H, Calcium 8.8 02/11/20 05:15: Hemoglobin A1c Pending 02/11/20 05:15: PT 17.3 H, INR 1.5, APTT 44.3 H 02/11/20 06:34: POC Glucose 93 Diagnostic Data Lower Extremity CT 02/10/20 17:00 IMPRESSION: 19.6 cm subcutaneous hematoma in the medial upper leg. Electronically Signed: Zurdo Dewey MD at 17:37 EST , Service support , Current Medications Albuterol/Ipratropium (Ipratropium/Albuterol Sulfate 3 Ml Ampul.Neb) 3 ml INHALATION Q4H.RT [facility] Last Admin: 02/10/20 22:25 Dose: 3 ml Documented by: Atorvastatin Calcium (Atorvastatin Calcium 40 Mg Tablet) 40 mg PO QHS [facility] Last Admin: 02/10/20 22:37 Dose: 40 mg Documented by: Diazepam (Diazepam 5 Mg Tablet) 5 mg PO 4X/DAY PRN PRN PRN Reason: SPASMS Diltiazem HCl (Diltiazem Cd 180 Mg Capsule) 180 mg PO DAILY [facility] Docusate Sodium (Docusate Sodium 100 Mg Capsule) 100 mg PO BID [facility] Last Admin: 02/10/20 22:37 Dose: 100 mg Documented by: Doxepin HCl (Doxepin Hcl 50 Mg Capsule) 50 mg PO QHS [facility] Last Admin: 02/10/20 22:37 Dose: 50 mg Documented by: Famotidine (Famotidine 20 Mg Tablet) 20 mg PO BID [facility] Last Admin: 02/10/20 22:39 Dose: 20 mg Documented by: Fluoxetine HCl (Fluoxetine 20 Mg Capsule) 60 mg PO DAILY [facility] Furosemide (Furosemide 40 Mg Tablet) 40 mg PO BIDLX [facility] Last Admin: 02/10/20 18:06 Dose: 40 mg Documented by: Gabapentin (Gabapentin 300 Mg Capsule) 300 mg PO TIDCM [facility] Last Admin: 02/10/20 18:05 Dose: 300 mg Documented by: Hydromorphone HCl (Hydromorphone 1 Mg/Ml Syringe) 1 mg IV Q4H PRN PRN PRN Reason: Pain Score 6-10 Piperacillin Sod/Tazobactam (Sod 3.375 gm/ Sodium Chloride) 50 mls @ 12.5 mls/hr IV Q8 [facility] Last Admin: 02/11/20 06:08 Dose: 12.5 mls/hr Documented by: Vancomycin IV Pharmacy to Dose (1 ea/ Sodium Chloride) 500 mls @ 250 mls/hr IV X1 PRN; Protocol PRN Reason: Rx to Dose Sodium Chloride () 250 mls @ 15 mls/hr IV .[id number] PRN PRN Reason: Saline Flush Last Infusion: 02/11/20 06:38 Dose: 0 mls/hr Documented by: Sodium Chloride () 250 mls @ 15 mls/hr IV .[id number] PRN PRN Reason: Additional IVPB Infusion Vancomycin HCl (Vancomycin) 1,000 mg in 200 mls @ 200 mls/hr IV Q12H [facility] Last Infusion: 02/11/20 07:48 Dose: Infused Documented by: Levothyroxine Sodium (Levothyroxine 75 Mcg Tablet) 75 mcg PO DAILY@0600 [facility] Last Admin: 02/11/20 06:17 Dose: 75 mcg Documented by: Metoprolol Tartrate (Metoprolol Tartrate 50 Mg Tablet) 50 mg PO BID [facility] Last Admin: 02/10/20 22:43 Dose: Not Given Documented by: Ondansetron HCl (Ondansetron 4 Mg/2 Ml Vial) 4 mg IV Q6H PRN PRN PRN Reason: NAUSEA Oxycodone HCl (Oxycodone 5 Mg Tablet) 10 mg PO Q4H PRN PRN PRN Reason: Pain Score 4-5 Last Admin: 02/10/20 20:38 Dose: 10 mg Documented by: Potassium Chloride (Potassium Chloride 20 Meq Tablet) [facility] Admin: 02/10/20 18:06 Dose: 20 meq Documented by: Promethazine HCl (Promethazine 25 Mg Tablet) 25 mg PO Q4H PRN PRN PRN Reason: NAUSEA/VOMITING Sodium Chloride (0.9% Saline Lock 10 Ml Syringe) 10 - 40 ml IV UD PRN PRN Reason: SALINE FLUSH Last Admin: 02/11/20 06:14 Dose: 10 ml Documented by: STROKE Vital Signs/Narrative: Vital Signs Temp Pulse Resp BP Pulse Ox 02/11/20 05:56 100 17 98 02/11/20 04:16 99.1 F 100 18 107/66 98 Medical Necessity - Tobacco Use Smoking Status: Former smoker Assessment/Plan All Active Problems (Last Reviewed 02/10/20 @ 16:[address] Benedicto Davis MD) Skin necrosis (Acute) Hematoma of left lower leg (Acute) Frequent falls (Acute) Bronchitis (Resolved) Cellulitis (Resolved) Chest pain (Resolved) Dyspnea (Resolved) Hematoma of leg (Resolved) Open wound of right lower leg (Resolved) Pneumonia (Resolved) Pulmonary edema (Resolved) Secondary pulmonary arterial hypertension (Resolved) Sepsis (Resolved) #Left calf hematoma due to a mechanical fall * Is currently on IV vancomycin and Zosyn on account of concern for infected hematoma. * Hemoglobin was 6.8 yesterday and is 6.2 today. * She has been transfused 2 units of packed red blood cells status this morning. * Plastic surgery on board. For surgery today. * #Acute on chronic blood loss anemia due to hematoma: Hemoglobin is 6.2. Been transfused with 2 units of packed red blood cells. #Hypertension: On metoprolol. #A. fib: Currently rate controlled. Eliquis on hold with her last dose being last Sunday. On Eliquis and metoprolol. #COPD: Not in exacerbation. On breathing treatment with bronchodilators. #Hyperlipidemia: On statin #Heart failure preserved ejection fraction: Known EF is 50%. On Lasix. #GERD: On famotidine. #Obstructive sleep apnea: On BiPAP nightly #Depression: Fluoxetine #Pulmonary hypertension: On Lasix. DVT prophylaxis: SCDs Inpatient E&M: [id number] [facility] L3
[2020-02-11] MEDS: Docusate Sodium 100 MG Capsule PO ×2 (07:56→22:12)
[2020-02-11] MEDS: Metoprolol Tartrate 50 MG Tablet PO (07:56)
[2020-02-11] MEDS: FLUoxetine 20 MG Capsule 60 MG PO (07:56)
[2020-02-11] MEDS: Gabapentin 300 MG Capsule PO ×3 (07:56→17:03)
[2020-02-11] MEDS: Famotidine 20 MG Tablet PO ×2 (07:57→22:12)
[2020-02-11] MEDS: Furosemide 40 MG Tablet PO ×2 (07:57→17:03)
[2020-02-11 08:13] LABS: Hemoglobin A1c 5.9 % (3.8-5.6)
--- NOTE | 2020-02-11 10:15 | CASEMGMT ---
CLAYTON YOUSIF Face to Face with patient for initial transition planning/care coordination assessment. CLAYTON YOUSIF introduced self and role at [facility]. Patient lying in bed, alert and oriented. Patient willing to participate in assessment and is able to answer all questions appropriately. Care providers, pharmacy, and demographics verified. Patient wishes to discharge home and she would like [facility] for HHC as she has had them in the past. Patient states she has no further needs or concerns at this time. CM to follow for discharge planning needs that may arise. PCP: Jose Specialists: Ryan, plastics; Teddy, camp director; Ryan, oxyacetylene torch operator; Lawrence, author Preferred Pharmacy: [facility] Insurance: [facility] Prescription Benefit: yes Living Will/HPOA: none LNOK: boyfriend Living Arrangements: Patient states she lives in a 1 story duplex with her boyfriend. Patient states she is independent at home. Transportation: Boyfriend DME/HHC: Patient states she has shower chair, raised toilet, cane, walker, grab bars, oxygen at 2lpm with portability through [employer], and cpap at home. Patient has had [facility] HHC and would like them at discharge. CLAYTON YOUSIF sent referral to [facility] to review, awaiting acceptance. Disposition Plan: Patient to discharge home with HHC, family support, and follow-up plans in place. Josselyn LAZCANO, RN, CM
[2020-02-11] MEDS: Ipratropium/Albuterol Sulfate 3 ML AMPUL.NEB INHALATION ×3 (11:31→19:47)
[2020-02-11 11:50] LABS: Bedside Glucose 105 mg/dL (70-110)
--- NOTE | 2020-02-11 13:48 | PN.SURG_ITS ---
Subjective: Patient feels more alert and less tired. - Physical Exam Vitals/I&O's: Vital Signs Temp Pulse Resp BP Pulse Ox 98.3 F 88 18 117/82 H 98 02/11/20 13:43 02/11/20 13:43 02/11/20 13:43 02/11/20 13:43 02/11/20 13:43 Oxygen Flow Rate (L/min) 2 Oxygen Delivery Method Nasal Cannula Weight: 330 lb 3.016 oz Body Mass Index (BMI) 51.7 Intake and Output for Last 24 Hours 02/09/20 02/10/20 02/11/20 23:59 23:59 23:59 Intake Total 900.5 / 900.5 941.5 / 941.5 Output Total 2049 / 2049 Balance 900.5 / 900.5 -1108.5 / -1108.5 General: Alert, Oriented x3 HEENT: PERRLA, EOMI Oral: Moist Mucosa Neck: Supple Abdomen: Soft, Non-Distended Extremities: - - large hematoma left medial leg. 20 cm. No increase in size noted. Skin: - - some blistering and compromised skin left medial leg over the hematoma. Some skin necrosis present. Neurological: Cranial nerves II-XII grossly intact Psych/Mental Status: Normal Affect, Appropriate Laboratory Results 02/10/20 16:31: WBC 7.5, RBC 2.41 L, Hgb 6.8 L, Hct 23.0 L, MCV 95.4, MCH 28.2, MCHC 29.6 L, RDW Std Deviation 52.3 H, RDW Coeff of Shannan 15.1 H, Plt Count 165, MPV 12.9 H 02/10/20 16:31: PT 18.9 H, INR 1.6, APTT 44.5 H 02/10/20 16:31: Sodium 135 L, Potassium 4.9, Chloride 102, Carbon Dioxide 26.0, Anion Gap 7, BUN 38 H, Creatinine 1.74 H, Estim Creat Clear Calc 35.53, Est GFR (MDRD) Af Amer 39 L, Est GFR (MDRD) Non-Af 32 L, BUN/Creatinine Ratio 21.8 H, Glucose 118 H, Calcium 8.8, Total Bilirubin 0.30, AST 17, ALT 10 L, Alkaline Phosphatase 104, Total Protein 6.9, Albumin 3.0 L, Globulin 3.9, Albumin/Globulin Ratio 0.8 L 02/10/20 17:35: COVID-19 ([facility]) Pending 02/10/20 18:24: POC Glucose 115 H 02/10/20 22:58: POC Glucose 105 02/11/20 05:15: WBC 6.7, RBC 2.18 L, Hgb 6.2 L, Hct 21.0 L, MCV 96.3, MCH 28.4, MCHC 29.5 L, RDW Std Deviation 53.6 H, RDW Coeff of Shannan 15.4 H, Plt Count 150, MPV 12.5 H, Immature Gran % (Auto) 0.500, Neut % (Auto) 66.9, Lymph % (Auto) 17.1 L, Howell % (Auto) 12.6 H, Eos % (Auto) 2.3, Baso % (Auto) 0.6, Absolute Neuts (auto) 4.5, Absolute Lymphs (auto) 1.14, Nucleated RBC % 0 02/11/20 05:15: Sodium 135 L, Potassium 4.9, Chloride 102, Carbon Dioxide 27.0, Anion Gap 6, BUN 33 H, Creatinine 1.42 H, Estim Creat Clear Calc 43.53, Est GFR (MDRD) Af Amer 49 L, Est GFR (MDRD) Non-Af 41 L, BUN/Creatinine Ratio 23.2 H, Glucose 115 H, Calcium 8.8 02/11/20 05:15: Hemoglobin A1c 5.9 H 02/11/20 05:15: PT 17.3 H, INR 1.5, APTT 44.3 H 02/11/20 06:34: POC Glucose 93 02/11/20 08:10: Blood Type A POSITIVE, Antibody Screen NEGATIVE, Crossmatch See Detail 02/11/20 11:41: POC Glucose 105 Diagnostic Data Lower Extremity CT 02/10/20 17:00 IMPRESSION: 19.6 cm subcutaneous hematoma in the medial upper leg. Electronically Signed: Zurdo Dewey MD at 17:37 EST , Service support , Current Medications Albuterol/Ipratropium (Ipratropium/Albuterol Sulfate 3 Ml Ampul.Neb) 3 ml INHALATION Q4H.RT [facility] Last Admin: 02/11/20 11:31 Dose: 3 ml Documented by: Atorvastatin Calcium (Atorvastatin Calcium 40 Mg Tablet) 40 mg PO QHS [facility] Last Admin: 02/10/20 22:37 Dose: 40 mg Documented by: Diazepam (Diazepam 5 Mg Tablet) 5 mg PO 4X/DAY PRN PRN PRN Reason: SPASMS Diltiazem HCl (Diltiazem Cd 180 Mg Capsule) 180 mg PO DAILY [facility] Last Admin: 02/11/20 07:54 Dose: Not Given Documented by: Docusate Sodium (Docusate Sodium 100 Mg Capsule) 100 mg PO BID [facility] Last Admin: 02/11/20 07:56 Dose: 100 mg Documented by: Doxepin HCl (Doxepin Hcl 50 Mg Capsule) 50 mg PO QHS [facility] Last Admin: 02/10/20 22:37 Dose: 50 mg Documented by: Famotidine (Famotidine 20 Mg Tablet) 20 mg PO BID [facility] Last Admin: 02/11/20 07:57 Dose: 20 mg Documented by: Fluoxetine HCl (Fluoxetine 20 Mg Capsule) 60 mg PO DAILY [facility] Last Admin: 02/11/20 07:56 Dose: 60 mg Documented by: Furosemide (Furosemide 40 Mg Tablet) 40 mg PO BIDLX [facility] Last Admin: 02/11/20 07:57 Dose: 40 mg Documented by: Gabapentin (Gabapentin 300 Mg Capsule) 300 mg PO TIDCM [facility] Last Admin: 02/11/20 11:38 Dose: 300 mg Documented by: Hydromorphone HCl (Hydromorphone 1 Mg/Ml Syringe) 1 mg IV Q4H PRN PRN PRN Reason: Pain Score 6-10 Piperacillin Sod/Tazobactam (Sod 3.375 gm/ Sodium Chloride) 50 mls @ 12.5 mls/hr IV Q8 [facility] Last Admin: 02/11/20 13:39 Dose: 12.5 mls/hr Documented by: Vancomycin IV Pharmacy to Dose (1 ea/ Sodium Chloride) 500 mls @ 250 mls/hr IV X1 PRN; Protocol PRN Reason: Rx to Dose Sodium Chloride () 250 mls @ 15 mls/hr IV .[id number] PRN PRN Reason: Saline Flush Last Infusion: 02/11/20 10:18 Dose: 15 mls/hr Documented by: Sodium Chloride () 250 mls @ 15 mls/hr IV .[id number] PRN PRN Reason: Additional IVPB Infusion Vancomycin HCl (Vancomycin) 1,000 mg in 200 mls @ 200 mls/hr IV Q12H [facility] Last Infusion: 02/11/20 07:48 Dose: Infused Documented by: Levothyroxine Sodium (Levothyroxine 75 Mcg Tablet) 75 mcg PO DAILY@0600 [facility] Last Admin: 02/11/20 06:17 Dose: 75 mcg Documented by: Metoprolol Tartrate (Metoprolol Tartrate 50 Mg Tablet) 50 mg PO BID [facility] Last Admin: 02/11/20 07:56 Dose: 50 mg Documented by: Ondansetron HCl (Ondansetron 4 Mg/2 Ml Vial) 4 mg IV Q6H PRN PRN PRN Reason: NAUSEA Oxycodone HCl (Oxycodone 5 Mg Tablet) 10 mg PO Q4H PRN PRN PRN Reason: Pain Score 4-5 Last Admin: 02/10/20 20:38 Dose: 10 mg Documented by: Potassium Chloride (Potassium Chloride 20 Meq Tablet) 20 meq PO BIDCM [facility] Last Admin: 02/11/20 07:56 Dose: 20 meq Documented by: Promethazine HCl (Promethazine 25 Mg Tablet) 25 mg PO Q4H PRN PRN PRN Reason: NAUSEA/VOMITING Sodium Chloride (0.9% Saline Lock 10 Ml Syringe) 10 - 40 ml IV UD PRN PRN Reason: SALINE FLUSH Last Admin: 02/11/20 06:14 Dose: 10 ml Documented by: Medical Necessity - Tobacco Use Smoking Status: Former smoker Assessment/Plan All Active Problems (Last Reviewed 02/10/20 @ 16:[address] Benedicto Davis MD) Acute blood loss anemia (Acute) Skin necrosis (Acute) Hematoma of left lower leg (Acute) Frequent falls (Acute) Bronchitis (Resolved) Cellulitis (Resolved) Chest pain (Resolved) Dyspnea (Resolved) Hematoma of leg (Resolved) Open wound of right lower leg (Resolved) Pneumonia (Resolved) Pulmonary edema (Resolved) Secondary pulmonary arterial hypertension (Resolved) Sepsis (Resolved) ASSESSMENT 1. Traumatic painful hematoma left medial leg with overlying skin compromise and some necrosis. 2. USP use of anticoagulants - Eliquis. 3. Frequent falls. 4. History of MRSA. 5. Acute blood loss anemia from traumatic hematoma. PLAN Continue Vancomycin and add Zosyn to minimize infection. CT scan reviewed. Large hematoma present. No evidence of bleeding deep to the muscles. The hematoma is large with overlying skin compromise with some skin necrosis. It is too large to absorb on its own. It will need operative intervention with surgical preparation traumatic painful hematoma with incision and drainage and evacuation hematoma and excisional debridement overlying skin compromise with some skin necrosis. Will leave the wound open and begin postop wound care with the VAC. Will also continue agata wrap for compression. Will send tissue to Pathology for analysis and to Microbiology for culture. A positive culture will necessitate antibiotic therapy. After discharge, will [facility]. If there is a plateau in the healing process, can proceed with delayed closure with skin grafting. Will consult the Hospitalist group for medical management. Patient was informed of the risks and complications of the procedure including alternatives to surgery. These were discussed with the patient personally. Patient voices understanding and wishes to proceed. Patient's Hgb was 6.2. She is getting PRBC today. She has acute blood loss anemia from the traumatic hematoma. Will recheck the Hgb after the PRBC. Surgery is scheduled for tomorrow under general anesthesia. We discussed the current risks associated with COVID-19. While it is understood that there is a community spread of COVID-19, the risk of eli COVID-19 while at [facility] ([facility]) is very low; however, the risk cannot be completely mitigated because of the community spread of the disease. We discussed in detail the risk of exposure to and/or potential harm posed by the COVID-19 virus with having a surgery/procedure at this time versus the risk of delaying the surgery/procedure. It is not possible to know either the risk of delaying the surgery or procedure or chance of getting an infection with perfect accuracy, but a joint decision was made to proceed at this time with the scheduled surgery/procedure as indicated on the consent form. Patient was notified that we will need to comply with any screening or testing [facility] wishes to perform or that surgery may be delayed for any positive results. Discussed with the patient that I was tested for COVID-19 on 10/09/19 which was negative and on 10/23/19 which was negative and on 11/06/19 which was negative and on 11/20/19 which was negative and on 12/04/19 which was negative and on 12/25/19 which was negative and on 01/15/20 which was negative. My testing regimen at this time is to be COVID-19 tested every 2 weeks or so. Procedure Criteria Procedure Type: Elective COVID Risk Discussion: The surgeon/proceduralist and patient have discussed in detail the risk of exposure to and/or potential harm posed by the COVID-19 virus with having a surgery/procedure at this time versus the risk of delaying the surgery/procedure. It is not possible to know either the risk of delaying the surgery or procedure or chance of getting an infection with perfect accuracy, but a joint decision was made between the patient and the surgeon/proceduralist to proceed at this time with the scheduled surgery/procedure as indicated on the consent form. Inpatient E&M: 58741 Subs Hosp L2 - ICD-10 - S80.12xA, I96, D62, Z86.14, Z79.01, R29.6
[2020-02-11] MEDS: oxyCODONE 5 MG Tablet 10 MG PO (17:06)
[2020-02-11 18:21] LABS: Hemoglobin 7.7 g/dL (12.0-15.0)
[2020-02-11] MEDS: Atorvastatin Calcium 40 MG Tablet PO (22:12)
[2020-02-11] MEDS: DOXEPIN HCL 50 MG CAPSULE PO (22:12)
[2020-02-11 22:25] LABS: Bedside Glucose 147 mg/dL (70-110)
[2020-02-12] VITALS (17 sets, daily range): BP systolic 104–120; BP diastolic 43–70; PULSE 78–114; RESP 16–20; TEMP 36.6–38.1; O2SAT 89–100; BMI 51.7
[2020-02-12 00:16] LABS: Hematocrit 26.2 % (37-47); Hemoglobin 7.2 g/dL (12.0-15.0)
[2020-02-12] MEDS: 0.9% Saline Lock 10 ML Syringe IV ×2 (05:46→22:22)
[2020-02-12] MEDS: Furosemide 40 MG/4 ML Vial IV (05:46)
[2020-02-12] MEDS: Levothyroxine 75 MCG Tablet PO (05:47)
[2020-02-12] MEDS: Vancomycin IV 1,000 MG/200 ML BAG 200 MG IV ×2 (07:05→18:05)
[2020-02-12 07:15] LABS: Bedside Glucose 121 mg/dL (70-110)
[2020-02-12 07:29] LABS: Absolute Lymphocyte Count 1.02 X10^3/uL (0.83-4.51); Absolute Neutrophil Count 4.1 X10^3/uL (2.0-7.7); Basophil# 0.02 X10^3/uL; Basophil% 0.3 % (0-1); Eosinophil# 0.12 X10^3/uL; Hematocrit 25.3 % (37-47); Hemoglobin 7.8 g/dL (12.0-15.0); Lymphocyte # 1.02 X10^3/ul (4.0); Lymphocyte % 16.9 % (19-41); Mean Corp Hgb Conc 30.8 g/dL (32-36); Mean Corpuscular Hgb 28.1 pg (27.0-32.0); Mean Platelet Vol. 12.5 fl (6.2-12.0); Monocyte# 0.73 X10^3/uL; Monocyte% 12.1 % (0-10); NRBC Flagged by Analyzer 0 % (0-5); Neutrophil # 4.12 X10^3/uL (2.7-7.7); Neutrophil % 68.5 % (47-70); Platelet Count 148 K/mm3 (150-450); RBC Distribution Width CV 16.8 % (11.6-14.6); RBC Distribution Width SD 55.7 fl (35.1-43.9); Red Blood Count 2.78 M/mm3 (4.2-5.4)
--- NOTE | 2020-02-12 07:33 | PN_ITS ---
Subjective: Patient seen and examined. She was taken down for surgery today but had to be brought back up because she became hypoxic. CT had done showed no evidence of PE. Showed evidence of mild degree of increased markings at the right lung base as well as groundglass appearance of the right upper lobe. She was subsequently transferred to PCU for closer monitoring. Patient has no complaints at time of review. Remains on 2 L of oxygen. Potassium today is 3. Vitals/I&O's: Vital Signs Temp Pulse Resp BP Pulse Ox 98.7 F 99 20 H 106/43 L 97 02/12/20 05:12 02/12/20 05:12 02/12/20 05:12 02/12/20 05:12 02/12/20 05:12 Oxygen Flow Rate (L/min) 2 Oxygen Delivery Method Nasal Cannula Weight: 330 lb 3.016 oz Body Mass Index (BMI) 51.7 Intake and Output for Last 24 Hours 02/10/20 02/11/20 02/12/20 23:59 23:59 23:59 Intake Total 900.5 / 900.5 2669.25 / 3019.25 1073.25 / 1073.25 Output Total 3050 / 4250 2200 / 2200 Balance 900.5 / 900.5 -380.75 / -1230.75 -1126.75 / -1126.75 General: Alert, Oriented x3, Cooperative, No apparent distress HEENT: Atraumatic, PERRLA, EOMI, Normocephalic Oral: Dry Mucosa Neck: Supple Lungs: Clear to auscultation, Normal air movement, No rhonchi, No wheeze; on 2L of oxygen Cardiovascular: Regular rate, Regular Rhythm, Normal S1, Normal S2, No murmurs Abdomen: Bowel Sounds Present, Soft, Non Tender, Non-Distended, No Hepato- splenomegaly Extremities: No clubbing, No cyanosis, No edema, Capillary Refill Less than 3 Seconds Skin: - - ecchymosis of left LE, with swelling. Musculoskeletal: No Tenderness to Palpation of Joints or Extremities Lymphatic: No Cervical, Supraclavicular, or Inguinal Adenopathy Neurological: Cranial nerves II-XII grossly intact, Neuro grossly intact, Motor Exam 5/5 strength throughout Psych/Mental Status: Normal Affect, Appropriate, Alert and oriented to time, place, person, mood and affect Microbiology Past 72 Hours 11/05/20 05:20 Mucosa - Nose - Final Laboratory Results 02/11/20 05:15: Hemoglobin A1c 5.9 H 02/11/20 06:34: POC Glucose 93 02/11/20 08:10: Blood Type A POSITIVE, Antibody Screen NEGATIVE, Crossmatch See Detail 02/11/20 08:10: Crossmatch See Detail 02/11/20 11:41: POC Glucose 105 02/11/20 18:14: Hgb 7.7 L 02/11/20 22:03: POC Glucose 147 H 02/12/20 00:10: Hgb 7.2 L, Hct 26.2 L 02/12/20 06:40: WBC Pending, RBC Pending, Hgb Pending, Hct Pending, MCV Pending, MCH Pending, MCHC Pending, RDW Std Deviation Pending, RDW Coeff of Shannan Pending, Plt Count Pending, Neut % (Auto) Pending, Absolute Neuts (auto) Pending 02/12/20 06:40: Sodium Pending, Potassium Pending, Chloride Pending, Carbon Dioxide Pending, Anion Gap Pending, BUN Pending, Creatinine Pending, Est GFR (MDRD) Af Amer Pending, Est GFR (MDRD) Non-Af Pending, BUN/Creatinine Ratio Pending, Glucose Pending, Calcium Pending 02/12/20 06:40: Vancomycin Trough Pending 02/12/20 06:57: POC Glucose 121 H Diagnostic Data Lower Extremity CT 02/10/20 17:00 IMPRESSION: 19.6 cm subcutaneous hematoma in the medial upper leg. Electronically Signed: Zurdo Dewey MD at 17:37 EST , Service support , Current Medications Albuterol/Ipratropium (Ipratropium/Albuterol Sulfate 3 Ml Ampul.Neb) 3 ml INHALATION Q4H.RT [facility] Last Admin: 02/11/20 19:47 Dose: 3 ml Documented by: Atorvastatin Calcium (Atorvastatin Calcium 40 Mg Tablet) 40 mg PO QHS [facility] Last Admin: 02/11/20 22:12 Dose: 40 mg Documented by: Diazepam (Diazepam 5 Mg Tablet) 5 mg PO 4X/DAY PRN PRN PRN Reason: SPASMS Diltiazem HCl (Diltiazem Cd 180 Mg Capsule) 180 mg PO DAILY [facility] Last Admin: 02/11/20 07:54 Dose: Not Given Documented by: Docusate Sodium (Docusate Sodium 100 Mg Capsule) 100 mg PO BID [facility] Last Admin: 02/11/20 22:12 Dose: 100 mg Documented by: Doxepin HCl (Doxepin Hcl 50 Mg Capsule) 50 mg PO QHS [facility] Last Admin: 02/11/20 22:12 Dose: 50 mg Documented by: Famotidine (Famotidine 20 Mg Tablet) 20 mg PO BID [facility] Last Admin: 02/11/20 22:12 Dose: 20 mg Documented by: Fluoxetine HCl (Fluoxetine 20 Mg Capsule) 60 mg PO DAILY [facility] Last Admin: 02/11/20 07:56 Dose: 60 mg Documented by: Furosemide (Furosemide 40 Mg Tablet) 40 mg PO BIDLX [facility] Last Admin: 02/11/20 17:03 Dose: 40 mg Documented by: Gabapentin (Gabapentin 300 Mg Capsule) 300 mg PO TIDCM [facility] Last Admin: 02/11/20 17:03 Dose: 300 mg Documented by: Hydromorphone HCl (Hydromorphone 1 Mg/Ml Syringe) 1 mg IV Q4H PRN PRN PRN Reason: Pain Score 6-10 Piperacillin Sod/Tazobactam (Sod 3.375 gm/ Sodium Chloride) 50 mls @ 12.5 mls/hr IV Q8 [facility] Last Admin: 02/12/20 05:47 Dose: 12.5 mls/hr Documented by: Vancomycin IV Pharmacy to Dose (1 ea/ Sodium Chloride) 500 mls @ 250 mls/hr IV X1 PRN; Protocol PRN Reason: Rx to Dose Sodium Chloride () 250 mls @ 15 mls/hr IV .[id number] PRN PRN Reason: Saline Flush Last Infusion: 02/12/20 07:05 Dose: 0 mls/hr Documented by: Sodium Chloride () 250 mls @ 15 mls/hr IV .[id number] PRN PRN Reason: Additional IVPB Infusion Last Infusion: 02/12/20 07:06 Dose: 0 mls/hr Documented by: Vancomycin HCl (Vancomycin) 1,000 mg in 200 mls @ 200 mls/hr IV Q12H [facility] Last Admin: 02/12/20 07:05 Dose: 200 mls/hr Documented by: Levothyroxine Sodium (Levothyroxine 75 Mcg Tablet) 75 mcg PO DAILY@0600 [facility] Last Admin: 02/12/20 05:47 Dose: 75 mcg Documented by: Metoprolol Tartrate (Metoprolol Tartrate 50 Mg Tablet) 50 mg PO BID [facility] Last Admin: 02/11/20 22:06 Dose: Not Given Documented by: Ondansetron HCl (Ondansetron 4 Mg/2 Ml Vial) 4 mg IV Q6H PRN PRN PRN Reason: NAUSEA Oxycodone HCl (Oxycodone 5 Mg Tablet) 10 mg PO Q4H PRN PRN PRN Reason: Pain Score 4-5 Last Admin: 02/11/20 17:06 Dose: 10 mg Documented by: Potassium Chloride (Potassium Chloride 20 Meq Tablet) 20 meq PO BIDCM [facility] Last Admin: 02/11/20 17:03 Dose: 20 meq Documented by: Promethazine HCl (Promethazine 25 Mg Tablet) 25 mg PO Q4H PRN PRN PRN Reason: NAUSEA/VOMITING Sodium Chloride (0.9% Saline Lock 10 Ml Syringe) 10 - 40 ml IV UD PRN PRN Reason: SALINE FLUSH Last Admin: 02/12/20 05:46 Dose: 10 ml Documented by: STROKE Vital Signs/Narrative: Vital Signs Temp Pulse Resp BP Pulse Ox 02/12/20 05:12 98.7 F 99 20 H 106/43 L 97 02/12/20 04:10 97.9 F 98 18 115/62 97 Medical Necessity - Tobacco Use Smoking Status: Former smoker Assessment/Plan All Active Problems (Last Reviewed 02/10/20 @ 16:[address] Benedicto Davis MD) Acute blood loss anemia (Acute) Skin necrosis (Acute) Hematoma of left lower leg (Acute) Frequent falls (Acute) Bronchitis (Resolved) Cellulitis (Resolved) Chest pain (Resolved) Dyspnea (Resolved) Hematoma of leg (Resolved) Open wound of right lower leg (Resolved) Pneumonia (Resolved) Pulmonary edema (Resolved) Secondary pulmonary arterial hypertension (Resolved) Sepsis (Resolved) #Left calf hematoma due to a mechanical fall * Is currently on IV vancomycin and Zosyn on account of concern for infected hematoma. * plastic surgery on board * s/p transfusion of 2 units of PRBCs * Surgery tomorrow. * #Acute on chronic blood loss anemia due to hematoma * s/p transfusion of 2 units of PRBCs * Hemoglobin this morning 7.8. * Hypoxia * She was noted to be hypoxic when she was taken off of surgery. * ABG done showed oxygen saturation of 85 with PO2 of 48. pH was 7.45. * CT of the chest done was negative for PE. * Continue titrating oxygen to maintain saturation above 90%. * Patient does have COPD and JASMIN which are likely contributing to her symptoms. * #Hypertension: On metoprolol. #A. fib: Currently rate controlled. Eliquis on hold with her last dose being last Sunday. #COPD: Not in exacerbation. On breathing treatment with bronchodilators. #Hyperlipidemia: On statin #Heart failure preserved ejection fraction: Known EF is 50%. On Lasix. not in exacerbation #GERD: On famotidine. #Obstructive sleep apnea: On BiPAP nightly #Depression: Fluoxetine #Pulmonary hypertension: On Lasix. DVT prophylaxis: SCDs Inpatient E&M: 51555 Subs Hosp L2
[2020-02-12 07:59] LABS: Anion Gap 8 (5-15); BUN 20 mg/dL (7-18); BUN/Creat Ratio 19.4 RATIO (10-20); Calcium,Total 8.4 mg/dL (8.5-10.1); Chloride 98 mmol/L (98-107); Creatinine, Serum 1.03 mg/dL (0.55-1.02); EST Glomerular Filtration Rate 59 mL/min (>60); Est Glom Filt Rate - Afr Amer 72 mL/min (>60); Estimated Creatinine Clearance 60.01 ml/min; Glucose 116 mg/dL (74-106); Sodium Level 136 mmol/L (136-145)
[2020-02-12 08:00] LABS: Vancomycin, Trough Level 18.2 ug/mL (5.0-15.0)
--- NOTE | 2020-02-12 08:27 | PCM.RX.CS ---
Consult Pharmacy has been consulted to manage selected antiobiotic: Vancomycin Type of Consult: Follow-up Suspected Infection: Other Labs: Sodium 136 mmol/L (136-145) 02/12/20 06:40 Potassium 3.0 mmol/L (3.5-5.1) L 02/12/20 06:40 Chloride 98 mmol/L (98-107) 02/12/20 06:40 Carbon Dioxide 30.0 mmol/L (21.0-32.0) 02/12/20 06:40 Anion Gap 8 (5-15) 02/12/20 06:40 BUN 20 mg/dL (7-18) H 02/12/20 06:40 Creatinine 1.03 mg/dL (0.55-1.02) H 02/12/20 06:40 Est GFR (MDRD) Af Amer 72 mL/min (>60) 02/12/20 06:40 Est GFR (MDRD) Non-Af 59 mL/min (>60) L 02/12/20 06:40 BUN/Creatinine Ratio 19.4 RATIO (-20) 02/12/20 06:40 Glucose 116 mg/dL (74-106) H 02/12/20 06:40 Vancomycin Trough 18.2 ug/mL (5.0-15.0) H 02/12/20 06:40 Microbiology: Microbiology 02/12/20 05:20 Mucosa - Nose - Final Pharmacy Plan for Drug Dosing: VANCOMYCIN LEVEL RECEIVED Current Vancomycin Dose: 1000mg iv q12h (,) Number of Doses Received: 2000mg iv x1 on 02/09 at 1843, and x2 doses of 1000mg Vancomycin Level: 18.2 Hours Since Last Dose: 11 Renal Function: 1.03 Renal Function Trend: SrCr is decreased from 1.74 on 02/09, and 1.42 on 02/10 Lab/Micro: Vancomycin Plan/Comments: due to pt's bmi and improving renal function, i recommend keeping the same dose of 1000mg iv q12h. it is currently above to ordered trough of 10-15, however with the improving renal function the pt will likely begin to clear the medication quicker. Pending Level: will recheck a trough after 3 more doses --02/12 at 1830 Pharmacy Service will continue to monitor and adjust dosing as required. Follow-Up Labs: Trough Vancomycin - 02/12 @ 1830
[2020-02-12] MEDS: Metoprolol Tartrate 50 MG Tablet PO ×2 (08:49→22:42)
[2020-02-12] MEDS: Lactated Ringers 1,000 ML 100 ML IV (09:47)
[2020-02-12] MEDS: Potassium Chloride 10mEq/100mL 10 MEQ/100 ML IV.SOLN. 100 MEQ IV BOLUS ×3 (10:08→14:44)
[2020-02-12 11:30] LABS: Base Excess 6 mmol/L (-2 to +2); Bicarbonate 29.9 mmol/L (22-26); Blood Gas Specimen Type ART; FI02 21; PO2 48 mmHG (75-100); SITE L Radial; SO2 85 % (95-99); Total Carbon Dioxide 31 mmol/L; pH 7.45 (7.35-7.45)
--- NOTE | 2020-02-12 12:06 | NURSING ---
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 Doron ARNOLD informed to call report. HEALTHCARE ADMINISTRATIVE ASSISTANT and paralegal secretary informed.
--- NOTE | 2020-02-12 12:42 | CT_ITS ---
STUDY: CTA CHEST REASON FOR EXAM: Female, 54 years old. Hypoxia, afib, anticoagulants held d/t hematoma of leg. Hx hypertension, CHF, former smoker. RADIATION DOSAGE (If Supplied By Facility): CTDIvol = ( 45.12 ) mGy, DLP = ( 707.59 ) mGycm TECHNIQUE: The examination was performed with the intravenous administration of . Post-processing of the angiographic images was performed, with multiplanar reformation and 3D reconstruction. Individualized dose optimization techniques were used for this CT. COMPARISON: None. FINDINGS: Normal enhancement of the main pulmonary artery and right and left pulmonary arteries. Normal enhancement of the bilateral peripheral pulmonary arteries. There is no demonstrated pulmonary embolism. Normal thoracic aorta and visualized great vessels. There is no demonstrated aortic dissection. Normal heart and pericardium. Normal mediastinum. Normal hilar regions. Normal visualized trachea and bronchi. The lungs are well expanded. Increased markings at the right lung base suggestive of atelectasis and/or early infiltrate. Minimal increased markings in the left lung base. Mild degree of groundglass appearance in the right upper lobe with mild degree of emphysematous changes. Normal pleura. Normal chest wall structures. There are degenerative changes of thoracic spine. Status post cholecystectomy. CT/CTA Chest W/WO Contrast IMPRESSION: No evidence of pleural embolism. Mild degree of increased markings at the right lung base as well as ground glass appearance in the right upper lobe. Electronically Signed: Fernie Luna, at 14:51 EST , Service support ,
[2020-02-12] MEDS: Furosemide 40 MG Tablet PO ×2 (12:56→16:56)
[2020-02-12] MEDS: Famotidine 20 MG Tablet PO ×2 (12:56→22:34)
[2020-02-12] MEDS: Gabapentin 300 MG Capsule PO ×2 (12:57→16:56)
[2020-02-12] MEDS: FLUoxetine 20 MG Capsule 60 MG PO (12:57)
[2020-02-12] MEDS: HYDROmorphone 1 MG/ML Syringe IV ×2 (12:58→22:22)
--- NOTE | 2020-02-12 13:31 | NURSING ---
to ct scan via bed
--- NOTE | 2020-02-12 13:34 | PN_ITS ---
Progress Note Patient was scheduled for surgery today for surgical preparation left medial leg with incision and drainage and evacuation traumatic painful hematoma with excisional debridement overlying skin compromise with necrosis. She has been getting PRBC for a low Hgb ranging from 6.2 to 7.8. It was noted she had some EKG changes and a low potassium of 3.0. Initial Troponin was 0.015. ABG showed a pO2 of 43 and a pCO2 of 48. With her history of atrial fibrillation, will obtain a CTA to look for a pulmonary embolism. A priest catheter was placed to help with I's/O's. With these recent changes, the surgery is cancelled for today for further workup. Will move her from [facility] down to PCU for closer monitoring. Tentatively the surgery is rescheduled for tomorrow afternoon at 100pm. STROKE Vital Signs/Narrative: Vital Signs Temp Pulse Resp BP Pulse Ox 02/12/20 13:28 98.5 F 97 18 109/70 99 02/12/20 13:18 97 18 99 02/12/20 10:49 95 17 111/68 92 02/12/20 10:48 100.6 F H 104 H 18 104/60 89 Inpatient E&M: 33062 Subs Hosp L1 - ICD-10 - S80.12xA, I96, D62, Z86.14, Z79.01, R29.6
[2020-02-12] MEDS: oxyCODONE 5 MG Tablet 10 MG PO (14:46)
--- NOTE | 2020-02-12 14:59 | NURSING ---
Rx notfied 1400 dose of zosyn not on unit for pt administration-pt just returned from CT scan
[2020-02-12] MEDS: Ipratropium/Albuterol Sulfate 3 ML AMPUL.NEB INHALATION ×2 (15:00→20:37)
--- NOTE | 2020-02-12 15:18 | NURSING ---
pt 1400 zosyn still not on unit for pt administration
--- NOTE | 2020-02-12 16:07 | CHAPLAIN ---
Type of Pastoral Visit _x__ Initial Visit ___ Follow-up Visit ___ On-call Visit ___ General Patient Visit ___ Spiritual Assessment ___ Family Conference ___ Bereavement ___ Rapid Response ___ Code Blue ___ Other (describe below) Pastoral Care Referral From _x__ Patient ___ Family _x__ Nurse ___ Physician ___ Implementation Specialist Payroll ___ Social Science Analyst ___ Other (describe below) Sacrament/Intervention _x__ Active listening ___ Anointing ___ Sikh ___ Bereavement ___ Communion ___ Beatriz exploration ___ ___ Life review _x__ Prayer ___ Reconciliation ___ Sacrament of Sick ___ Supportive presence ___ Wedding ___ Other (describe below) Pastoral Comments
[2020-02-12 17:00] LABS: Bedside Glucose 132 mg/dL (70-110)
[2020-02-12] MEDS: Atorvastatin Calcium 40 MG Tablet PO (22:34)
[2020-02-12] MEDS: DOXEPIN HCL 50 MG CAPSULE PO (22:34)
[2020-02-12] MEDS: Docusate Sodium 100 MG Capsule PO (22:34)
[2020-02-13] VITALS (27 sets, daily range): BP systolic 72–117; BP diastolic 48–91; PULSE 82–114; RESP 16–24; TEMP 36.4–37; O2SAT 90–99
[2020-02-13] MEDS: Vancomycin IV 1,000 MG/200 ML BAG 200 MG IV ×2 (06:21→19:34)
[2020-02-13] MEDS: Levothyroxine 75 MCG Tablet PO (06:22)
[2020-02-13 06:52] LABS: Absolute Lymphocyte Count 1.08 X10^3/uL (0.83-4.51); Absolute Neutrophil Count 4.4 X10^3/uL (2.0-7.7); Basophil# 0.03 X10^3/uL; Basophil% 0.5 % (0-1); Eosinophil# 0.18 X10^3/uL; Eosinophils% 2.8 % (0-5); Hematocrit 27.8 % (37-47); Hemoglobin 8.4 g/dL (12.0-15.0); Lymphocyte # 1.08 X10^3/ul (4.0); Mean Corp Hgb Conc 30.2 g/dL (32-36); Mean Corpuscular Hgb 27.7 pg (27.0-32.0); Mean Corpuscular Volume 91.7 fL (81-99); Mean Platelet Vol. 11.6 fl (6.2-12.0); NRBC Flagged by Analyzer 0 % (0-5); Neutrophil # 4.35 X10^3/uL (2.7-7.7); Neutrophil % 68.2 % (47-70); Platelet Count 166 K/mm3 (150-450); RBC Distribution Width CV 16.3 % (11.6-14.6); RBC Distribution Width SD 54.4 fl (35.1-43.9); Red Blood Count 3.03 M/mm3 (4.2-5.4); White Blood Count 6.4 K/mm3 (4.4-11.0)
[2020-02-13 07:30] LABS: Anion Gap 7 (5-15); BUN 14 mg/dL (7-18); BUN/Creat Ratio 14.1 RATIO (10-20); Chloride 97 mmol/L (98-107); Creatinine, Serum 0.99 mg/dL (0.55-1.02); EST Glomerular Filtration Rate 62 mL/min (>60); Est Glom Filt Rate - Afr Amer 75 mL/min (>60); Estimated Creatinine Clearance 62.44 ml/min; Glucose 117 mg/dL (74-106); Potassium 3.1 mmol/L (3.5-5.1); Sodium Level 137 mmol/L (136-145)
[2020-02-13] MEDS: Ipratropium/Albuterol Sulfate 3 ML AMPUL.NEB INHALATION ×3 (07:50→22:36)
--- NOTE | 2020-02-13 08:00 | PCM.PN.HOSP ---
Subjective: Patient seen and examined. She is due to go for surgery today. She had an uneventful night and remains on her 2 L of oxygen. Surgery was c on account of hypokalemia and low hemoglobin. wbc is 3.1 and hemoglobin is 8.4. Vitals/I&O's: Vital Signs Temp Pulse Resp BP Pulse Ox 97.6 F L 98 24 H 113/58 L 90 02/13/20 02:27 02/13/20 07:50 02/13/20 07:50 02/13/20 02:27 02/13/20 07:56 Oxygen Flow Rate (L/min) 2 Oxygen Delivery Method Room Air Weight: 330 lb 2.981 oz Body Mass Index (BMI) 51.7 Intake and Output for Last 24 Hours 02/11/20 02/12/20 02/13/20 23:59 23:59 23:59 Intake Total 2669.25 / 3019.25 3494.92 / 3494.92 550 / 550 Output Total 3050 / 4250 4800 / 4800 400 / 400 Balance -380.75 / -1230.75 -1305.08 / -1305.08 150 / 150 General: Alert, Oriented x3, Cooperative, No apparent distress HEENT: Atraumatic, PERRLA, EOMI, Normocephalic Oral: Dry Mucosa Neck: Supple Lungs: Clear to auscultation, Normal air movement, No rhonchi, No wheeze; on 2L of oxygen Cardiovascular: Regular rate, Regular Rhythm, Normal S1, Normal S2, No murmurs Abdomen: Bowel Sounds Present, Soft, Non Tender, Non-Distended, No Hepato-splenomegaly Extremities: No clubbing, No cyanosis, No edema, Capillary Refill Less than 3 Seconds Skin: - - ecchymosis of left LE, with swelling; LLE wrapped in bandage. Musculoskeletal: No Tenderness to Palpation of Joints or Extremities Lymphatic: No Cervical, Supraclavicular, or Inguinal Adenopathy Neurological: Cranial nerves II-XII grossly intact, Neuro grossly intact, Motor Exam 5/5 strength throughout Psych/Mental Status: Normal Affect, Appropriate, Alert and oriented to time, place, person, mood and affect Microbiology Past 72 Hours 02/12/20 05:20 Mucosa - Nose - Final Laboratory Results 02/10/20 17:35: COVID-19 ([facility]) Not Detected 02/11/20 08:10: Crossmatch See Detail 02/11/20 08:10: Crossmatch See Detail 02/12/20 06:40: Vancomycin Trough 18.2 H 02/12/20 06:40: Troponin I < 0.015 02/12/20 11:24: Specimen Type ART, Sample Site L Radial, pH 7.45, Bicarbonate Actual 29.9 H, Total CO2 31, Base Excess 6 H, O2 Saturation 85 L, O2 % 21, ABG pCO2 43.0, ABG pO2 48 L 02/12/20 16:53: POC Glucose 132 H 02/13/20 06:28: WBC 6.4, RBC 3.03 L, Hgb 8.4 L, Hct 27.8 L, MCV 91.7, MCH 27.7, MCHC 30.2 L, RDW Std Deviation 54.4 H, RDW Coeff of Shannan 16.3 H, Plt Count 166, MPV 11.6, Immature Gran % (Auto) 0.500, Neut % (Auto) 68.2, Lymph % (Auto) 17.0 L, [place] % (Auto) 11.0 H, Eos % (Auto) 2.8, Baso % (Auto) 0.5, Absolute Neuts (auto) 4.4, Absolute Lymphs (auto) 1.08, Nucleated RBC % 0 02/13/20 06:28: Sodium 137, Potassium 3.1 L, Chloride 97 L, Carbon Dioxide 33.0 H, Anion Gap 7, BUN 14, Creatinine 0.99, Estim Creat Clear Calc 62.44, Est GFR (MDRD) Af Amer 75, Est GFR (MDRD) Non-Af 62, BUN/Creatinine Ratio 14.1, Glucose 117 H, Calcium 9.0 Diagnostic Data Lower Extremity CT 02/10/20 17:00 IMPRESSION: 19.6 cm subcutaneous hematoma in the medial upper leg. Electronically Signed: Zurdo Dewey MD at 17:37 EST , Service support , Chest CTA 02/12/20 12:42 IMPRESSION: No evidence of pleural embolism. Mild degree of increased markings at the right lung base as well as ground glass appearance in the right upper lobe. Electronically Signed: Fernie Luna, at 14:51 EST , Service support , Current Medications Acetaminophen (Acetaminophen 325 Mg Tablet) 650 mg PO Q4H PRN PRN PRN Reason: fever, pain 1-10 Albuterol/Ipratropium (Ipratropium/Albuterol Sulfate 3 Ml Ampul.Neb) 3 ml INHALATION Q4H.RT [facility] Last Admin: 02/13/20 07:50 Dose: 3 ml Documented by: Atorvastatin Calcium (Atorvastatin Calcium 40 Mg Tablet) 40 mg PO QHS [facility] Last Admin: 02/12/20 22:34 Dose: 40 mg Documented by: Diazepam (Diazepam 5 Mg Tablet) 5 mg PO 4X/DAY PRN PRN PRN Reason: SPASMS Diltiazem HCl (Diltiazem Cd 180 Mg Capsule) 180 mg PO DAILY [facility] Last Admin: 02/12/20 13:27 Dose: Not Given Documented by: Docusate Sodium (Docusate Sodium 100 Mg Capsule) 100 mg PO BID [facility] Last Admin: 02/12/20 22:34 Dose: 100 mg Documented by: Doxepin HCl (Doxepin Hcl 50 Mg Capsule) 50 mg PO QHS [facility] Last Admin: 02/12/20 22:34 Dose: 50 mg Documented by: Famotidine (Famotidine 20 Mg Tablet) 20 mg PO BID [facility] Last Admin: 02/12/20 22:34 Dose: 20 mg Documented by: Fluoxetine HCl (Fluoxetine 20 Mg Capsule) 60 mg PO DAILY [facility] Last Admin: 02/12/20 12:57 Dose: 60 mg Documented by: Furosemide (Furosemide 40 Mg Tablet) 40 mg PO BIDLX [facility] Last Admin: 02/12/20 16:56 Dose: 40 mg Documented by: Gabapentin (Gabapentin 300 Mg Capsule) 300 mg PO TIDCM [facility] Last Admin: 02/12/20 16:56 Dose: 300 mg Documented by: Hydromorphone HCl (Hydromorphone 1 Mg/Ml Syringe) 1 mg IV Q4H PRN PRN PRN Reason: Pain Score 6-10 Last Admin: 02/12/20 22:22 Dose: 1 mg Documented by: Piperacillin Sod/Tazobactam (Sod 3.375 gm/ Sodium Chloride) 50 mls @ 12.5 mls/hr IV Q8 [facility] Last Admin: 02/13/20 06:22 Dose: 12.5 mls/hr Documented by: Vancomycin IV Pharmacy to Dose (1 ea/ Sodium Chloride) 500 mls @ 250 mls/hr IV X1 PRN; Protocol PRN Reason: Rx to Dose Sodium Chloride () 250 mls @ 15 mls/hr IV .[id number] PRN PRN Reason: Saline Flush Last Infusion: 02/13/20 02:30 Dose: 15 mls/hr Documented by: Sodium Chloride () 250 mls @ 15 mls/hr IV .[id number] PRN PRN Reason: Additional IVPB Infusion Last Infusion: 02/12/20 07:06 Dose: 0 mls/hr Documented by: Vancomycin HCl (Vancomycin) 1,000 mg in 200 mls @ 200 mls/hr IV Q12H [facility] Last Infusion: 02/13/20 07:59 Dose: Infused Documented by: Levothyroxine Sodium (Levothyroxine 75 Mcg Tablet) 75 mcg PO DAILY@0600 [facility] Last Admin: 02/13/20 06:22 Dose: 75 mcg Documented by: Metoprolol Tartrate (Metoprolol Tartrate 50 Mg Tablet) 50 mg PO BID [facility] Last Admin: 02/12/20 22:42 Dose: 50 mg Documented by: Ondansetron HCl (Ondansetron 4 Mg/2 Ml Vial) 4 mg IV Q6H PRN PRN PRN Reason: NAUSEA Oxycodone HCl (Oxycodone 5 Mg Tablet) 10 mg PO Q4H PRN PRN PRN Reason: Pain Score 4-5 Last Admin: 02/12/20 14:46 Dose: 10 mg Documented by: Potassium Chloride (Potassium Chloride 20 Meq Tablet) [facility] Last Admin: 02/12/20 12:57 Dose: 20 meq Documented by: Promethazine HCl (Promethazine 25 Mg Tablet) 25 mg PO Q4H PRN PRN PRN Reason: NAUSEA/VOMITING Sodium Chloride (0.9% Saline Lock 10 Ml Syringe) 10 - 40 ml IV UD PRN PRN Reason: SALINE FLUSH Last Admin: 02/12/20 22:22 Dose: 10 ml Documented by: STROKE Vital Signs/Narrative: Vital Signs Pulse Resp Pulse Ox 02/13/20 07:56 90 02/13/20 07:50 98 24 H Medical Necessity - Tobacco Use Smoking Status: Former smoker Assessment/Plan All Active Problems (Last Reviewed 02/10/20 @ 16:[address] Benedicto Davis MD) Acute blood loss anemia (Acute) Skin necrosis (Acute) Hematoma of left lower leg (Acute) Frequent falls (Acute) Bronchitis (Resolved) Cellulitis (Resolved) Chest pain (Resolved) Dyspnea (Resolved) Hematoma of leg (Resolved) Open wound of right lower leg (Resolved) Pneumonia (Resolved) Pulmonary edema (Resolved) Secondary pulmonary arterial hypertension (Resolved) Sepsis (Resolved) #Left calf hematoma due to a mechanical fall Is currently on IV vancomycin and Zosyn on account of concern for infected hematoma. plastic surgery on board s/p transfusion of 2 units of PRBCs for surgery today #Acute on chronic blood loss anemia due to hematoma s/p transfusion of 2 units of PRBCs Hemoglobin this morning is 8.4 Hypoxia She was noted to be hypoxic when she was taken for surgery; surgery was therefore cancelled. ABG done showed oxygen saturation of 85 with PO2 of 48. pH was 7.45. CT of the chest done was negative for PE. Continue titrating oxygen to maintain saturation above 90%. Patient does have COPD and JASMIN which are likely contributing to her symptoms. I did discuss patient with the signaling design engineer- Dr Salamanca; If patient has difficulty with extubation after surgery, or is hypoxic, to be sent to ICU. #Hypertension: On metoprolol. #A. fib: Currently rate controlled. Eliquis on hold with her last dose being last Sunday. #COPD: Not in exacerbation. On breathing treatment with bronchodilators. #Hyperlipidemia: On statin #Heart failure preserved ejection fraction: Known EF is 50%. On Lasix. not in exacerbation #GERD: On famotidine. #Obstructive sleep apnea: On BiPAP nightly #Depression: Fluoxetine #Pulmonary hypertension: On Lasix. DVT prophylaxis: SCDs Inpatient E&M: [id number] [facility] Hosp L3
[2020-02-13] MEDS: HYDROmorphone 1 MG/ML Syringe IV ×2 (09:27→18:10)
--- NOTE | 2020-02-13 09:39 | CASEMGMT ---
[facility] is able to take pt and is aware pt to have surgery today. Green sheet on chart for [facility], if pt discharges over the w/e. SStaten CLAYTON CM
[2020-02-13] MEDS: Furosemide 40 MG Tablet PO ×2 (09:55→17:55)
[2020-02-13] MEDS: Docusate Sodium 100 MG Capsule PO ×2 (09:55→22:05)
[2020-02-13] MEDS: Gabapentin 300 MG Capsule PO (09:55)
[2020-02-13] MEDS: FLUoxetine 20 MG Capsule 60 MG PO (09:56)
[2020-02-13] MEDS: Famotidine 20 MG Tablet PO ×2 (09:56→22:05)
[2020-02-13] MEDS: Metoprolol Tartrate 50 MG Tablet PO (09:56)
[2020-02-13] MEDS: Potassium Chloride 10mEq/100mL 10 MEQ/100 ML IV.SOLN. 100 MEQ IV BOLUS ×4 (11:29→21:15)
--- NOTE | 2020-02-13 13:15 | SOF_PTH ---
PATIENT: MARY ABEL LOC: [facility] U#:[id number] AGE/SX: 54/F ROOM: [facility] RE02/10/[address]: Dr. Sayra Carver MD : 1965 BED: 1 DIS: 02/18/2020 SPEC #: [id number] RECD: 02/13/20 15:24 STATUS: MAMADOU REQ #: [id number] MARIANNA: 02/13/20 13:[address]: Benedicto Davis DEPT: SURGICAL PATHOLOGY RECD BY: Tammy Musa ENTERED: 02/16/20 08:41 SP TYPE: SOFT TISS OTHR DR: MD Dr. Whtiley Andres DO Dr. Tai Chi Kwok, MD Tissues: Soft tissues, NOS Procedures: Surgery Specimen Level III Comments: @ Ordering doctor for SUIV edited from to @ by RGOOD at 02/16/20 1033 @ Submitting doctor edited from to @ by FOXOD at 02/16/20 1033 HEADER OPERATION: I & D, evacuation hematoma lower leg PRE-OP DIAGNOSIS: Large left leg medical hematoma TISSUE SUBMITTED: Soft tissue hematoma left leg MICROSCOPIC DIAGNOSIS Soft tissue hematoma left leg: Pieces of skin with underlying tissue with extensive blood clots, consistent with hematoma. Focal acute inflammation. JUAN JOSE:emmy 02/17/20 MICROSCOPIC DESCRIPTION Slides are reviewed. GROSS DESCRIPTION Received in fixative is one container labeled with the patient's name and designated soft tissue hematoma left leg. The specimen consists of a piece of skin with underlying tissue measuring 21 x 19 x 10 cm. The skin surface is congested. A focal area of ulceration is also noted. Also present in the container are detached pieces of skin with soft tissue measuring in aggregate 9 x 8 x 3 cm. Multiple blood clots are noted. Sections reveal multiple blood clots throughout the specimen. No mass lesion is identified. Gear Design Engineer sections are submitted in three cassettes. / JUAN JOSE:emmy 02/16/20 TC:5 CPT: 48011
--- NOTE | 2020-02-13 14:03 | NURSING ---
Read and reviewed SN documentation
--- NOTE | 2020-02-13 15:27 | OP.PCM_ITS ---
Report of Operation Date of Procedure: 02/13/20 Pre-Operative Diagnosis: 1. Traumatic painful hematoma left medial leg with overlying skin compromise and some necrosis. 2. watermaster use of anticoagulants - Eliquis. 3. Frequent falls. 4. History of MRSA. Post-Operative Diagnosis: 1. Traumatic painful infected necrotic hematoma left medial leg with overlying skin compromise and necrosis. 2. care home use of anticoagulants - Eliquis. 3. Frequent falls. 4. History of MRSA. Surgery/Procedure Performed:: Surgical preparation left medial leg with incision and drainage and evacuation traumatic painful infected necrotic hematoma and excisional debridement overlying compromised skin with necrosis (256 cm2). Description of Surgical Findings:: Patient is a 54 year old female who fell at home last [place], 02/06/20, when she tripped over a shredder that she did not see. She hit her left leg, right wrist and her face. She went to the ED on 02/07/20 where they did an xray and CT scan of her head. According to the patient the x-ray showed no fracture and the CT was normal. She was discharged on Keflex and Doxycycline. Jayesh wrap was applied for compression. She has experienced increasing pain. Patient was informed of the risks and complications of the procedure including alternatives to surgery. These were discussed with the patient personally. Patient voices understanding and wishes to proceed. IV Fluids - 1200 ml. Urine Output - 600 ml. Size of defect left medial leg - 16 x 16 x 5 cm. chemical worker: None Type of Anesthesia:: General Specimen's removed: Traumatic painful infected necrotic hematoma left medial leg to Pathology and Microbiology. Drains: None. Estimated Blood Loss (mL): 850 ml. Fluids Replaced: 1800 ml (IV Fluids 1200 ml, Urine Output 600 ml). Description of Procedure: Patient was taken to OR in supine position and was placed under general anesthesia. The left leg was prepped and draped in th e usual fashion. SCD's were placed on the right leg for DVT prophylaxis. Perioperative antibiotics were given intravenously. For the procedure, I wore an N95 mask and wore proper eyewear protection. The traumatic hematoma left medial leg was infiltrated with xylocaine and epinephrine. After waiting 5 minutes for the anesthetic to take effect, I proceeded with an incision and drainage of the hematoma around the necrotic skin. No pus was seen but there was some liquefaction of the large hematoma with associated odor signifying an infection. The infected hematoma extended to the underlying muscle and fascia and was adherent. The fascia was inflamed yet viable. Some of the fascia was excised and debrided. No necrotizing process was seen. The underlying visible muscle appeared viable. The overlying necrotic skin as well as associated fat necrosis surrounding the infected hematoma was excised and debrided. Hemostasis was obtained with electrocautery. The wound was irrigated with saline. The amount of the hematoma combined with the amount of blood loss from the surgery equaled 850 ml. The size of the defect left medial leg after incision and drainage and evacuation and excisional debridement of this traumatic necrotic infected hematoma was 16 x 16 x 5 cm or 256 cm2. Tissue that was removed was sent to Pathology for analysis to rule out carcinoma and to Microbiology for culture. A positive culture will necessitate antibiotic therapy. The wound was dressed with Mepitel nonadherent dressing followed by Kerlix gauze and Betadine followed by dry Kerlix gauze and ABD pads and a compression JAYESH wrap. Patient tolerated the procedure well and was sent to PACU in satisfactory condition. Patient will be sent upstairs for continued postop care. The NPWT device may be applied tomorrow. Because of the amount of bleeding seen, I may wait a couple of days before applying the VAC and just proceed with continued Betadine compression dressings. After discharge she [facility]. Depending on the healing, she may benefit from delayed closure with skin grafting. She will keep her left leg elevated when sitting. She will minimize standing postoperatively. Grafts/Implants Used: None. - Complications None. - Admit VTE Documentation VTE Present on Admission: No - Patient has been on Eliquis for atrial fibrillation. VTE Mechan Device Prophylaxis: SCD's VTE Pharm Prophylaxis ordered?: Yes Surgery Charges CPT - 61428 ICD-10 - S81.802A, S80.12xA, I96, D62, Z86.14, Z79.01, R29.6 [id number] S81.802A, S80.12xA, I96, D62, Z86.14, Z79.01, R29.6 82784 S81.802A, S80.12xA, I96, D62, Z86.14, Z79.01, R29.6 07528 S80.12xA, S81.802A, I96, D62, Z86.14, Z79.01, R29.6
[2020-02-13 17:10] LABS: Bedside Glucose 155 mg/dL (70-110)
[2020-02-13 19:20] LABS: Vancomycin, Trough Level 18.7 ug/mL (5.0-15.0)
[2020-02-13] MEDS: Lactated Ringers 250 ML 999 ML IV (20:30)
[2020-02-13] MEDS: Lactated Ringers 1,000 ML 100 ML IV (20:55)
[2020-02-13] MEDS: DOXEPIN HCL 50 MG CAPSULE PO (22:05)
[2020-02-13] MEDS: Atorvastatin Calcium 40 MG Tablet PO (22:06)
[2020-02-14] VITALS (33 sets, daily range): BP systolic 92–110; BP diastolic 43–68; PULSE 84–114; RESP 16–20; TEMP 36.3–37.3; O2SAT 94–100
--- NOTE | 2020-02-14 03:03 | PCM.RX.CS ---
Consult Pharmacy has been consulted to manage selected antiobiotic: Vancomycin Type of Consult: Follow-up Labs: Sodium 137 mmol/L (136-145) 02/13/20 06:28 Potassium 3.1 mmol/L (3.5-5.1) L 02/13/20 06:28 Chloride 97 mmol/L (98-107) L 02/13/20 06:28 Carbon Dioxide 33.0 mmol/L (21.0-32.0) H 02/13/20 06:28 Anion Gap 7 (5-15) 02/13/20 06:28 BUN 14 mg/dL (7-18) 02/13/20 06:28 Creatinine 0.99 mg/dL (0.55-1.02) 02/13/20 06:28 Est GFR (MDRD) Af Amer 75 mL/min (>60) 02/13/20 06:28 Est GFR (MDRD) Non-Af 62 mL/min (>60) 02/13/20 06:28 BUN/Creatinine Ratio 14.1 RATIO (10-20) 02/13/20 06:28 Glucose 117 mg/dL (74-106) H 02/13/20 06:28 Vancomycin Trough 18.7 ug/mL (5.0-15.0) H 02/13/20 18:31 Microbiology: Microbiology 02/12/20 05:20 Mucosa - Nose - Final Goal Trough: 10-15 mcg/mL Pharmacy Plan for Drug Dosing: Pharmacy Service will continue to monitor and adjust dosing as required. TROUGH 18.7 NO CHANGES REPEAT IN 4 DOSES Follow-Up Labs: Trough Vancomycin Labs to be done on [date and time ordered]: 02/15 @ 6540
[2020-02-14] MEDS: Acetaminophen 325 MG Tablet 650 MG PO ×2 (04:56→10:08)
[2020-02-14] MEDS: Levothyroxine 75 MCG Tablet PO (04:57)
[2020-02-14] MEDS: Vancomycin IV 1,000 MG/200 ML BAG 200 MG IV ×2 (07:03→19:24)
[2020-02-14 07:06] LABS: Bedside Glucose 129 mg/dL (70-110)
[2020-02-14] MEDS: Ipratropium/Albuterol Sulfate 3 ML AMPUL.NEB INHALATION ×5 (07:16→23:00)
[2020-02-14 07:48] LABS: Hematocrit 21.8 % (37-47); Hemoglobin 6.6 g/dL (12.0-15.0); Mean Corp Hgb Conc 30.3 g/dL (32-36); Mean Corpuscular Hgb 27.7 pg (27.0-32.0); Mean Corpuscular Volume 91.6 fL (81-99); Mean Platelet Vol. 11.7 fl (6.2-12.0); Platelet Count 166 K/mm3 (150-450); RBC Distribution Width CV 15.5 % (11.6-14.6); RBC Distribution Width SD 51.7 fl (35.1-43.9); Red Blood Count 2.38 M/mm3 (4.2-5.4); White Blood Count 5.5 K/mm3 (4.4-11.0)
--- NOTE | 2020-02-14 08:04 | PCM.PN.HOSP ---
Subjective: Patient seen and examined. She had evacuation of the necrotic hematoma and excisional debridement done yesterday. Today's postop day 1. She has no complaints and feels well. Review of symptoms otherwise negative. She is on 3 L of oxygen and has remained hemodynamically stable. Hemoglobin this morning is 6.6. Vitals/I&O's: Vital Signs Temp Pulse Resp BP Pulse Ox 98.9 F 85 20 H 97/57 L 96 02/14/20 06:43 02/14/20 07:19 02/14/20 07:19 02/14/20 06:43 02/14/20 07:19 Oxygen Flow Rate (L/min) 3 Oxygen Delivery Method Nasal Cannula Weight: 330 lb 2.981 oz Body Mass Index (BMI) 51.7 Finger Stick Blood Glucose 155 Intake and Output for Last 24 Hours 02/12/20 02/13/20 02/14/20 23:59 23:59 23:59 Intake Total 3494.92 / 3494.92 1791.66 / 1791.66 1670 / 1670 Output Total 4800 / 4800 1055 / 1655 900 / 900 Balance -1305.08 / -1305.08 736.66 / 136.66 770 / 770 General: Alert, Oriented x3, Cooperative, No apparent distress HEENT: Atraumatic, PERRLA, EOMI, Normocephalic Oral: Dry Mucosa Neck: Supple Lungs: Clear to auscultation, Normal air movement, No rhonchi, No wheeze; on 3L of oxygen Cardiovascular: Regular rate, Regular Rhythm, Normal S1, Normal S2, No murmurs Abdomen: Bowel Sounds Present, Soft, Non Tender, Non-Distended, No Hepato-splenomegaly Extremities: No clubbing, No cyanosis, No edema, Capillary Refill Less than 3 Seconds Skin: - - ecchymosis of left LE, with swelling; LLE wrapped in bandage. Musculoskeletal: No Tenderness to Palpation of Joints or Extremities Lymphatic: No Cervical, Supraclavicular, or Inguinal Adenopathy Neurological: Cranial nerves II-XII grossly intact, Neuro grossly intact, Motor Exam 5/5 strength throughout Psych/Mental Status: Normal Affect, Appropriate, Alert and oriented to time, place, person, mood and affect Microbiology Past 72 Hours 02/12/20 05:20 Mucosa - Nose - Final Laboratory Results 02/13/20 17:05: POC Glucose 155 H 02/13/20 18:31: Vancomycin Trough 18.7 H 02/14/20 06:45: POC Glucose 129 H 02/14/20 07:31: WBC 5.5, RBC 2.38 L, Hgb 6.6 L, Hct 21.8 L, MCV 91.6, MCH 27.7, MCHC 30.3 L, RDW Std Deviation 51.7 H, RDW Coeff of Shannan 15.5 H, Plt Count 166, MPV 11.7 02/14/20 07:31: Sodium Pending, Potassium Pending, Chloride Pending, Carbon Dioxide Pending, Anion Gap Pending, BUN Pending, Creatinine Pending, Est GFR (MDRD) Af Amer Pending, Est GFR (MDRD) Non-Af Pending, BUN/Creatinine Ratio Pending, Glucose Pending, Calcium Pending, Prealbumin Pending Current Medications Acetaminophen (Acetaminophen 325 Mg Tablet) 650 mg PO Q4H PRN PRN PRN Reason: fever, pain 1-10 Last Admin: 02/14/20 04:56 Dose: 650 mg Documented by: Albuterol/Ipratropium (Ipratropium/Albuterol Sulfate 3 Ml Ampul.Neb) 3 ml INHALATION Q4H.RT [facility] Last Admin: 02/14/20 07:16 Dose: 3 ml Documented by: Atorvastatin Calcium (Atorvastatin Calcium 40 Mg Tablet) 40 mg PO QHS [facility] Last Admin: 02/13/20 22:06 Dose: 40 mg Documented by: Diazepam (Diazepam 5 Mg Tablet) 5 mg PO 4X/DAY PRN PRN PRN Reason: SPASMS Diltiazem HCl (Diltiazem Cd 180 Mg Capsule) 180 mg PO DAILY [facility] Last Admin: 02/13/20 10:17 Dose: Not Given Documented by: Docusate Sodium (Docusate Sodium 100 Mg Capsule) 100 mg PO BID [facility] Last Admin: 02/13/20 22:05 Dose: 100 mg Documented by: Doxepin HCl (Doxepin Hcl 50 Mg Capsule) 50 mg PO QHS [facility] Last Admin: 02/13/20 22:05 Dose: 50 mg Documented by: Famotidine (Famotidine 20 Mg Tablet) 20 mg PO BID [facility] Last Admin: 02/13/20 22:05 Dose: 20 mg Documented by: Fluoxetine HCl (Fluoxetine 20 Mg Capsule) 60 mg PO DAILY [facility] Last Admin: 02/13/20 09:56 Dose: 60 mg Documented by: Furosemide (Furosemide 40 Mg Tablet) 40 mg PO BIDLX [facility] Last Admin: 02/13/20 17:55 Dose: 40 mg Documented by: Gabapentin (Gabapentin 300 Mg Capsule) 300 mg PO TIDCM [facility] Last Admin: 02/13/20 17:07 Dose: Not Given Documented by: Hydromorphone HCl (Hydromorphone 1 Mg/Ml Syringe) 1 mg IV Q4H PRN PRN PRN Reason: Pain Score 6-10 Last Admin: 02/13/20 18:10 Dose: 1 mg Documented by: Piperacillin Sod/Tazobactam (Sod 3.375 gm/ Sodium Chloride) 50 mls @ 12.5 mls/hr IV Q8 [facility] Last Admin: 02/14/20 05:00 Dose: 12.5 mls/hr Documented by: Vancomycin IV Pharmacy to Dose (1 ea/ Sodium Chloride) 500 mls @ 250 mls/hr IV X1 PRN; Protocol PRN Reason: Rx to Dose Sodium Chloride () 250 mls @ 15 mls/hr IV .[id number] PRN PRN Reason: Saline Flush Last Infusion: 02/13/20 19:14 Dose: Infused Documented by: Sodium Chloride () 250 mls @ 15 mls/hr IV .[id number] PRN PRN Reason: Additional IVPB Infusion Last Infusion: 02/12/20 07:06 Dose: 0 mls/hr Documented by: Vancomycin HCl (Vancomycin) 1,000 mg in 200 mls @ 200 mls/hr IV Q12H [facility] Last Admin: 02/14/20 07:03 Dose: 200 mls/hr Documented by: Lactated Ringer's () 1,000 mls @ 100 mls/hr IV .Q10H [facility] Last Infusion: 02/14/20 07:04 Dose: Infused Documented by: Levothyroxine Sodium (Levothyroxine 75 Mcg Tablet) 75 mcg PO DAILY@0600 [facility] Last Admin: 02/14/20 04:57 Dose: 75 mcg Documented by: Metoprolol Tartrate (Metoprolol Tartrate 50 Mg Tablet) 50 mg PO BID [facility] Last Admin: 11/06/20 22:06 Dose: Not Given Documented by: Ondansetron HCl (Ondansetron 4 Mg/2 Ml Vial) 4 mg IV Q6H PRN PRN PRN Reason: NAUSEA Oxycodone HCl (Oxycodone 5 Mg Tablet) 10 mg PO Q4H PRN PRN PRN Reason: Pain Score 4-5 Last Admin: 02/12/20 14:46 Dose: 10 mg Documented by: Potassium Chloride (Potassium Chloride 20 Meq Tablet) 20 meq PO BIDCM [facility] Last Admin: 02/13/20 17:07 Dose: Not Given Documented by: Promethazine HCl (Promethazine 25 Mg Tablet) 25 mg PO Q4H PRN PRN PRN Reason: NAUSEA/VOMITING Sodium Chloride (0.9% Saline Lock 10 Ml Syringe) 10 - 40 ml IV UD PRN PRN Reason: SALINE FLUSH Last Admin: 02/12/20 22:22 Dose: 10 ml Documented by: STROKE Vital Signs/Narrative: Vital Signs Temp Pulse Resp BP Pulse Ox 02/14/20 07:19 85 20 H 96 02/14/20 07:00 84 02/14/20 06:43 98.9 F 88 20 H 97/57 L 97 02/14/20 05:30 96 02/14/20 04:46 98.4 F 96 18 96/50 L 96 Medical Necessity - Tobacco Use Smoking Status: Former smoker Assessment/Plan All Active Problems (Last Reviewed 02/10/20 @ 16:[address] Benedicto Davis MD) Acute blood loss anemia (Acute) Skin necrosis (Acute) Hematoma of left lower leg (Acute) Frequent falls (Acute) Bronchitis (Resolved) Cellulitis (Resolved) Chest pain (Resolved) Dyspnea (Resolved) Hematoma of leg (Resolved) Open wound of right lower leg (Resolved) Pneumonia (Resolved) Pulmonary edema (Resolved) Secondary pulmonary arterial hypertension (Resolved) Sepsis (Resolved) #Left calf hematoma due to a mechanical fall S/p incision and drainage and evacuation of hematoma. Today's postop day 1. Pain well controlled. Hemoglobin is 6.6 so we will transfuse 2 more units of packed red blood cells. Remains on IV vancomycin and Zosyn. plastic surgery on board #Acute on chronic blood loss anemia due to hematoma Globin this morning is 6.6. Has already been transfused 2 units of packed red blood cells. Will transfuse 2 more units of packed red blood cells today. #Chronic hypoxic respiratory failure due to COPD: On 2 L of oxygen at home. Currently on 3 L of oxygen. Breathing treatments with bronchodilators. #Hypertension: On metoprolol. #A. fib: Currently rate controlled. Eliquis on hold due to hematoma #COPD: Not in exacerbation. On breathing treatment with bronchodilators. #Hyperlipidemia: On statin #Heart failure preserved ejection fraction: Known EF is 50%. On Lasix. not in exacerbation #GERD: On famotidine. #Obstructive sleep apnea: On BiPAP nightly #Depression: Fluoxetine #Pulmonary hypertension: On Lasix. DVT prophylaxis: SCDs Inpatient E&M: 57189 Subs Hosp L2
[2020-02-14 08:09] LABS: Anion Gap 6 (5-15); BUN 17 mg/dL (7-18); BUN/Creat Ratio 15.5 RATIO (10-20); Chloride 97 mmol/L (98-107); EST Glomerular Filtration Rate 55 mL/min (>60); Est Glom Filt Rate - Afr Amer 66 mL/min (>60); Estimated Creatinine Clearance 56.19 ml/min; Glucose 119 mg/dL (74-106); Potassium 3.3 mmol/L (3.5-5.1); Prealbumin 6.4 mg/dL (20.0-40.0); Sodium Level 136 mmol/L (136-145)
[2020-02-14] MEDS: Lactated Ringers 1,000 ML 100 ML IV (09:55)
[2020-02-14] MEDS: Docusate Sodium 100 MG Capsule PO ×2 (09:57→22:03)
[2020-02-14] MEDS: Gabapentin 300 MG Capsule PO ×3 (09:57→16:18)
[2020-02-14] MEDS: FLUoxetine 20 MG Capsule 60 MG PO (09:58)
[2020-02-14] MEDS: Famotidine 20 MG Tablet PO ×2 (09:58→22:01)
[2020-02-14] MEDS: 0.9% Saline Lock 10 ML Syringe IV ×3 (10:33→19:50)
[2020-02-14] MEDS: Lactated Ringers 1,000 ML 999 ML IV (10:34)
[2020-02-14] MEDS: HYDROmorphone 1 MG/ML Syringe IV (11:38)
--- NOTE | 2020-02-14 11:53 | PN.SURG_ITS ---
Subjective: Postop #1 Patient feels a little tired. - Physical Exam Vitals/I&O's: Vital Signs Temp Pulse Resp BP Pulse Ox 97.8 F 90 20 H 92/45 L 98 02/14/20 10:05 02/14/20 10:54 02/14/20 10:54 02/14/20 10:17 02/14/20 10:10 Oxygen Flow Rate (L/min) 3 Oxygen Delivery Method Nasal Cannula Weight: 330 lb 2.981 oz Body Mass Index (BMI) 51.7 Finger Stick Blood Glucose 155 Intake and Output for Last 24 Hours 02/12/20 02/13/20 02/14/20 23:59 23:59 23:59 Intake Total 3494.92 / 3494.92 1791.66 / 1791.66 2225 / 2225 Output Total 4800 / 4800 1055 / 1655 1100 / 1100 Balance -1305.08 / -1305.08 736.66 / 136.66 1125 / 1125 General: Alert, Oriented x3 HEENT: PERRLA, EOMI Oral: Moist Mucosa Neck: Supple Abdomen: Soft, Non-Distended Skin: Ulcer/ Wound - left medial leg wound is stable. No active bleeding seen. No evidence of persistent infection. Neurological: Cranial nerves II-XII grossly intact Psych/Mental Status: Normal Affect, Appropriate Microbiology Past 72 Hours 02/13/20 Unknown Tissue - Leg, Left Gram Stain - Final 02/13/20 Unknown Tissue - Leg, Left Wound Culture - Preliminary Gram negative viri 02/12/20 05:20 Mucosa - Nose - Final Laboratory Results 02/13/20 17:05: POC Glucose 155 H 02/13/20 18:31: Vancomycin Trough 18.7 H 02/14/20 06:45: POC Glucose 129 H 02/14/20 07:31: WBC 5.5, RBC 2.38 L, Hgb 6.6 L, Hct 21.8 L, MCV 91.6, MCH 27.7, MCHC 30.3 L, RDW Std Deviation 51.7 H, RDW Coeff of Shannan 15.5 H, Plt Count 166, MPV 11.7 02/14/20 07:31: Sodium 136, Potassium 3.3 L, Chloride 97 L, Carbon Dioxide 33.0 H, Anion Gap 6, BUN 17, Creatinine 1.10 H, Estim Creat Clear Calc 56.19, Est GFR (MDRD) Af Amer 66, Est GFR (MDRD) Non-Af 55 L, BUN/Creatinine Ratio 15.5, Glucose 119 H, Calcium 8.0 L, Prealbumin 6.4 L Diagnostic Data Lower Extremity CT 02/10/20 17:00 IMPRESSION: 19.6 cm subcutaneous hematoma in the medial upper leg. Electronically Signed: Zurdo Dewey MD at 17:37 EST , Service support , Chest CTA 02/12/20 12:42 IMPRESSION: No evidence of pleural embolism. Mild degree of increased markings at the right lung base as well as ground glass appearance in the right upper lobe. Electronically Signed: Fernie Luna, at 14:51 EST , Service support , Current Medications Acetaminophen (Acetaminophen 325 Mg Tablet) 650 mg PO Q4H PRN PRN PRN Reason: fever, pain 1-10 Last Admin: 02/14/20 10:08 Dose: 650 mg Documented by: Albuterol/Ipratropium (Ipratropium/Albuterol Sulfate 3 Ml Ampul.Neb) 3 ml INHALATION Q4H.RT [facility] Last Admin: 02/14/20 10:53 Dose: 3 ml Documented by: Atorvastatin Calcium (Atorvastatin Calcium 40 Mg Tablet) 40 mg PO QHS [facility] Last Admin: 02/13/20 22:06 Dose: 40 mg Documented by: Diazepam (Diazepam 5 Mg Tablet) 5 mg PO 4X/DAY PRN PRN PRN Reason: SPASMS Diltiazem HCl (Diltiazem Cd 180 Mg Capsule) 180 mg PO DAILY [facility] Last Admin: 02/14/20 10:17 Dose: Not Given Documented by: Docusate Sodium (Docusate Sodium 100 Mg Capsule) 100 mg PO BID [facility] Last Admin: 02/14/20 09:57 Dose: 100 mg Documented by: Doxepin HCl (Doxepin Hcl 50 Mg Capsule) 50 mg PO QHS [facility] Last Admin: 02/13/20 22:05 Dose: 50 mg Documented by: Famotidine (Famotidine 20 Mg Tablet) 20 mg PO BID [facility] Last Admin: 02/14/20 09:58 Dose: 20 mg Documented by: Fluoxetine HCl (Fluoxetine 20 Mg Capsule) 60 mg PO DAILY [facility] Last Admin: 02/14/20 09:58 Dose: 60 mg Documented by: Furosemide (Furosemide 40 Mg Tablet) 40 mg PO BIDLX [facility] Last Admin: 02/14/20 10:17 Dose: Not Given Documented by: Gabapentin (Gabapentin 300 Mg Capsule) 300 mg PO TIDCM [facility] Last Admin: 02/14/20 09:57 Dose: 300 mg Documented by: Hydromorphone HCl (Hydromorphone 1 Mg/Ml Syringe) 1 mg IV Q4H PRN PRN PRN Reason: Pain Score 6-10 Last Admin: 02/14/20 11:38 Dose: 1 mg Documented by: Piperacillin Sod/Tazobactam (Sod 3.375 gm/ Sodium Chloride) 50 mls @ 12.5 mls/hr IV Q8 [facility] Last Infusion: 02/14/20 09:07 Dose: Infused Documented by: Vancomycin IV Pharmacy to Dose (1 ea/ Sodium Chloride) 500 mls @ 250 mls/hr IV X1 PRN; Protocol PRN Reason: Rx to Dose Sodium Chloride () 250 mls @ 15 mls/hr IV .[id number] PRN PRN Reason: Saline Flush Last Infusion: 02/13/20 19:14 Dose: Infused Documented by: Sodium Chloride () 250 mls @ 15 mls/hr IV .[id number] PRN PRN Reason: Additional IVPB Infusion Last Infusion: 02/12/20 07:06 Dose: 0 mls/hr Documented by: Vancomycin HCl (Vancomycin) 1,000 mg in 200 mls @ 200 mls/hr IV Q12H [facility] Last Infusion: 02/14/20 09:08 Dose: Infused Documented by: Lactated Ringer's () 1,000 mls @ 150 mls/hr IV .[id number] [facility] Last Infusion: 02/14/20 10:34 Dose: 150 mls/hr Documented by: Levothyroxine Sodium (Levothyroxine 75 Mcg Tablet) 75 mcg PO DAILY@0600 [facility] Last Admin: 02/14/20 04:57 Dose: 75 mcg Documented by: Metoprolol Tartrate (Metoprolol Tartrate 50 Mg Tablet) 50 mg PO BID [facility] Last Admin: 02/14/20 10:17 Dose: Not Given Documented by: Ondansetron HCl (Ondansetron 4 Mg/2 Ml Vial) 4 mg IV Q6H PRN PRN PRN Reason: NAUSEA Oxycodone HCl (Oxycodone 5 Mg Tablet) 10 mg PO Q4H PRN PRN PRN Reason: Pain Score 4-5 Last Admin: 02/12/20 14:46 Dose: 10 mg Documented by: Potassium Chloride ([facility] 20 [facility]) [facility] Admin: 02/14/20 09:56 Dose: 20 meq Documented by: Promethazine HCl (Promethazine 25 Mg Tablet) 25 mg PO Q4H PRN PRN PRN Reason: NAUSEA/VOMITING Sodium Chloride (0.9% Saline Lock 10 Ml Syringe) 10 - 40 ml IV UD PRN PRN Reason: SALINE FLUSH Last Admin: 02/14/20 11:38 Dose: 10 ml Documented by: Medical Necessity - Tobacco Use Smoking Status: Former smoker Assessment/Plan All Active Problems (Last Reviewed 02/10/20 @ 16:[address] Benedicto Davis MD) Acute blood loss anemia (Acute) Skin necrosis (Acute) Hematoma of left lower leg (Acute) Frequent falls (Acute) Bronchitis (Resolved) Cellulitis (Resolved) Chest pain (Resolved) Dyspnea (Resolved) Hematoma of leg (Resolved) Open wound of right lower leg (Resolved) Pneumonia (Resolved) Pulmonary edema (Resolved) Secondary pulmonary arterial hypertension (Resolved) Sepsis (Resolved) ASSESSMENT 1. Traumatic painful hematoma left medial leg with overlying skin compromise and some necrosis. 2. Open surgical hematoma wound left medial leg. 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 4. Frequent falls. 5. History of MRSA. 5. Acute blood loss anemia from traumatic hematoma. 7. Hypopotassiumemia. PLAN Her CTA was reviewed. It was negative for pulmonary embolism. Continue Vancomycin and add Zosyn. Operative culture shows Gram negative viri. Once the organism is identified, will decide if she can go home on po antibiotics or IV antibiotics through a PICC line. Hematoma wound is stable. No active bleeding seen. No cinical evidence of persistent infection. Wound redressed with Betadine gauze compression dressing. She tolerated it reasonably well. She needed IV analgesia. Will apply the VAC on Sunday. After discharge, [facility]. If there is a plateau in the healing process, can proceed with delayed closure with skin grafting. Patient's Hgb was 6.6. She is getting PRBC today. She has acute blood loss anemia from the traumatic hematoma. Will recheck the Hgb after the PRBC. Will start Iron supplementation. Potassium is slowly improving. It is at 3.3 today. Continue supplementation. Prealbumin was 6.4. Encourage nutritional supplementation with protein to help the healing process.
[2020-02-14 12:05] LABS: Bedside Glucose 119 mg/dL (70-110)
[2020-02-14] MEDS: Lactated Ringers 1,000 ML 150 ML IV (16:39)
[2020-02-14 16:50] LABS: Bedside Glucose 132 mg/dL (70-110)
[2020-02-14] MEDS: Furosemide 40 MG Tablet PO (16:57)
[2020-02-14] MEDS: oxyCODONE 5 MG Tablet 10 MG PO (19:49)
[2020-02-14] MEDS: Atorvastatin Calcium 40 MG Tablet PO (22:02)
[2020-02-14] MEDS: DOXEPIN HCL 50 MG CAPSULE PO (22:03)
[2020-02-14 22:21] LABS: Bedside Glucose 129 mg/dL (70-110)
[2020-02-15] VITALS (15 sets, daily range): BP systolic 92–107; BP diastolic 42–60; PULSE 73–107; RESP 12–18; TEMP 36.6–36.7; O2SAT 85–100
[2020-02-15] MEDS: Lactated Ringers 1,000 ML 150 ML IV (00:50)
[2020-02-15] MEDS: dilTIAZem CD 180 MG Capsule PO ×2 (02:13→09:53)
--- NOTE | 2020-02-15 04:17 | NURSING ---
Due to increased wheezing around 0100, fluids were paused, Dr. Carver notified and she wants to monitor for a while before ordering a diuretic. 2 hours later, breathing improved, wheezing decreased. Updated Dr. Carver, she says continue to hold fluids for now.
[2020-02-15] MEDS: Levothyroxine 75 MCG Tablet PO (05:54)
[2020-02-15 06:19] LABS: Absolute Neutrophil Count 3.4 X10^3/uL (2.0-7.7); Basophil# 0.03 X10^3/uL; Basophil% 0.6 % (0-1); Eosinophil# 0.15 X10^3/uL; Eosinophils% 2.9 % (0-5); Hematocrit 26.6 % (37-47); Hemoglobin 8.1 g/dL (12.0-15.0); Lymphocyte % 17.5 % (19-41); Mean Corp Hgb Conc 30.5 g/dL (32-36); Mean Corpuscular Hgb 27.6 pg (27.0-32.0); Mean Corpuscular Volume 90.8 fL (81-99); Mean Platelet Vol. 11.4 fl (6.2-12.0); Monocyte# 0.62 X10^3/uL; Monocyte% 12.1 % (0-10); NRBC Flagged by Analyzer 0 % (0-5); Neutrophil % 66.3 % (47-70); Platelet Count 190 K/mm3 (150-450); RBC Distribution Width CV 15.6 % (11.6-14.6); RBC Distribution Width SD 51.6 fl (35.1-43.9); Red Blood Count 2.93 M/mm3 (4.2-5.4); White Blood Count 5.1 K/mm3 (4.4-11.0)
[2020-02-15 06:48] LABS: Anion Gap 6 (5-15); BUN 18 mg/dL (7-18); BUN/Creat Ratio 15.1 RATIO (10-20); Calcium,Total 8.6 mg/dL (8.5-10.1); Chloride 100 mmol/L (98-107); Creatinine, Serum 1.19 mg/dL (0.55-1.02); EST Glomerular Filtration Rate 50 mL/min (>60); Est Glom Filt Rate - Afr Amer 61 mL/min (>60); Estimated Creatinine Clearance 51.94 ml/min; Glucose 117 mg/dL (74-106); Potassium 3.6 mmol/L (3.5-5.1); Sodium Level 137 mmol/L (136-145)
[2020-02-15] MEDS: Vancomycin IV 1,000 MG/200 ML BAG 200 MG IV (06:56)
--- NOTE | 2020-02-15 07:57 | PCM.PN.HOSP ---
Subjective: Patient seen and examined. She had an uneventful night and has no complaints. He was on 3 L of oxygen and says she felt like she could not take in deep breaths. Review of systems otherwise negative. Today's postop day 2. Hemoglobin today is 8.1. She has remained hemodynamically stable. She is in cumulative positive balance by 4 L. Vitals/I&O's: Vital Signs Temp Pulse Resp BP Pulse Ox 97.8 F 98 18 95/57 L 97 02/15/20 03:55 02/15/20 07:00 02/15/20 03:55 02/15/20 03:55 02/15/20 03:55 Oxygen Flow Rate (L/min) 2 Oxygen Delivery Method Room Air Weight: 330 lb 2.981 oz Body Mass Index (BMI) 51.7 Finger Stick Blood Glucose 155 Intake and Output for Last 24 Hours 02/13/20 02/14/20 02/15/20 23:59 23:59 23:59 Intake Total 1791.66 / 1791.66 5857.5 / 5857.5 795 / 795 Output Total 1055 / 1655 1275 / 1525 1050 / 1050 Balance 736.66 / 136.66 4582.5 / 4332.5 -255 / -255 General: Alert, Oriented x3, Cooperative, No apparent distress HEENT: Atraumatic, PERRLA, EOMI, Normocephalic Oral: Dry Mucosa Neck: Supple Lungs: diminished breath sounds bibasally,with few crackles bibasally. on 3L of oxygen Cardiovascular: Regular rate, Regular Rhythm, Normal S1, Normal S2, No murmurs Abdomen: Bowel Sounds Present, Soft, Non Tender, Non-Distended, No Hepato-splenomegaly Extremities: No clubbing, No cyanosis, No edema, Capillary Refill Less than 3 Seconds Skin: - - ecchymosis of left LE, with swelling; LLE wrapped in bandage. Musculoskeletal: No Tenderness to Palpation of Joints or Extremities Lymphatic: No Cervical, Supraclavicular, or Inguinal Adenopathy Neurological: Cranial nerves II-XII grossly intact, Neuro grossly intact, Motor Exam 5/5 strength throughout Psych/Mental Status: Normal Affect, Appropriate, Alert and oriented to time, place, person, mood and affect Microbiology Past 72 Hours 02/13/20 Unknown Tissue - Leg, Left Gram Stain - Final 02/13/20 Unknown Tissue - Leg, Left Wound Culture - Final Proteus mirabilis 02/12/20 05:20 Mucosa - Nose - Final Laboratory Results 02/11/20 08:10: Crossmatch See Detail 02/11/20 08:10: Crossmatch See Detail 02/11/20 18:10: Crossmatch See Detail 02/14/20 07:31: Sodium 136, Potassium 3.3 L, Chloride 97 L, Carbon Dioxide 33.0 H, Anion Gap 6, BUN 17, Creatinine 1.10 H, Estim Creat Clear Calc 56.19, Est GFR (MDRD) Af Amer 66, Est GFR (MDRD) Non-Af 55 L, BUN/Creatinine Ratio 15.5, Glucose 119 H, Calcium 8.0 L, Prealbumin 6.4 L 02/14/20 11:37: POC Glucose 119 H 02/14/20 16:31: POC Glucose 132 H 02/14/20 22:10: POC Glucose 129 H 02/15/20 06:08: WBC 5.1, RBC 2.93 L, Hgb 8.1 L, Hct 26.6 L, MCV 90.8, MCH 27.6, MCHC 30.5 L, RDW Std Deviation 51.6 H, RDW Coeff of Shannan 15.6 H, Plt Count 190, MPV 11.4, Immature Gran % (Auto) 0.600, Neut % (Auto) 66.3, Lymph % (Auto) 17.5 L, [place] % (Auto) 12.1 H, Eos % (Auto) 2.9, Baso % (Auto) 0.6, Absolute Neuts (auto) 3.4, Absolute Lymphs (auto) 0.90, Nucleated RBC % 0 02/15/20 06:08: Sodium 137, Potassium 3.6, Chloride 100, Carbon Dioxide 31.0, Anion Gap 6, BUN 18, Creatinine 1.19 H, Estim Creat Clear Calc 51.94, Est GFR (MDRD) Af Amer 61, Est GFR (MDRD) Non-Af 50 L, BUN/Creatinine Ratio 15.1, Glucose 117 H, Calcium 8.6 Current Medications Acetaminophen (Acetaminophen 325 Mg Tablet) 650 mg PO Q4H PRN PRN PRN Reason: fever, pain 1-10 Last Admin: 02/14/20 10:08 Dose: 650 mg Documented by: Albuterol/Ipratropium (Ipratropium/Albuterol Sulfate 3 Ml Ampul.Neb) 3 ml INHALATION Q4H.RT [facility] Last Admin: 02/14/20 23:00 Dose: 3 ml Documented by: Atorvastatin Calcium (Atorvastatin Calcium 40 Mg Tablet) 40 mg PO QHS [facility] Last Admin: 02/14/20 22:02 Dose: 40 mg Documented by: Diazepam (Diazepam 5 Mg Tablet) 5 mg PO 4X/DAY PRN PRN PRN Reason: SPASMS Diltiazem HCl (Diltiazem Cd 180 Mg Capsule) 180 mg PO DAILY [facility] Last Admin: 02/14/20 10:17 Dose: Not Given Documented by: Docusate Sodium (Docusate Sodium 100 Mg Capsule) 100 mg PO BID [facility] [place] Last Admin: 02/14/20 22:03 Dose: 100 mg Documented by: Doxepin HCl (Doxepin Hcl 50 Mg Capsule) 50 mg PO QHS [facility] Last Admin: 02/14/20 22:03 Dose: 50 mg Documented by: Famotidine (Famotidine 20 Mg Tablet) 20 mg PO BID [facility] Last Admin: 02/14/20 22:01 Dose: 20 mg Documented by: Fluoxetine HCl (Fluoxetine 20 Mg Capsule) 60 mg PO DAILY [facility] Last Admin: 02/14/20 09:58 Dose: 60 mg Documented by: Furosemide (Furosemide 40 Mg Tablet) 40 mg PO BIDLX [facility] [place] Last Admin: 02/14/20 16:57 Dose: 40 mg Documented by: Gabapentin (Gabapentin 300 Mg Capsule) 300 mg PO TIDCM [facility] [place] Last Admin: 02/14/20 16:18 Dose: 300 mg Documented by: Hydromorphone HCl (Hydromorphone 1 Mg/Ml Syringe) 1 mg IV Q4H PRN PRN PRN Reason: Pain Score 6-10 Last Admin: 02/14/20 11:38 Dose: 1 mg Documented by: Piperacillin Sod/Tazobactam (Sod 3.375 gm/ Sodium Chloride) 50 mls @ 12.5 mls/hr IV Q8 [facility] Last Admin: 02/15/20 05:52 Dose: 12.5 mls/hr Documented by: Vancomycin IV Pharmacy to Dose (1 ea/ Sodium Chloride) 500 mls @ 250 mls/hr IV X1 PRN; Protocol PRN Reason: Rx to Dose Sodium Chloride () 250 mls @ 15 mls/hr IV .[id number] PRN PRN Reason: Saline Flush Last Infusion: 02/13/20 19:14 Dose: Infused Documented by: Sodium Chloride () 250 mls @ 15 mls/hr IV .[id number] PRN PRN Reason: Additional IVPB Infusion Last Infusion: 02/12/20 07:06 Dose: 0 mls/hr Documented by: Vancomycin HCl (Vancomycin) 1,000 mg in 200 mls @ 200 mls/hr IV Q12H [facility] [place] Last Admin: 02/15/20 06:56 Dose: 200 mls/hr Documented by: Lactated Ringer's () 1,000 mls @ 150 mls/hr IV .[id number] [facility] [place] Last Infusion: 02/15/20 01:20 Dose: 0 mls/hr Documented by: Levothyroxine Sodium (Levothyroxine 75 Mcg Tablet) 75 mcg PO DAILY@0600 [facility] [place] Last Admin: 02/15/20 05:54 Dose: 75 mcg Documented by: Metoprolol Tartrate (Metoprolol Tartrate 50 Mg Tablet) 50 mg PO BID [facility] Last Admin: 02/14/20 22:03 Dose: Not Given Documented by: Ondansetron HCl (Ondansetron 4 Mg/2 Ml Vial) 4 mg IV Q6H PRN PRN PRN Reason: NAUSEA Oxycodone HCl (Oxycodone 5 Mg Tablet) 10 mg PO Q4H PRN PRN PRN Reason: Pain Score 4-5 Last Admin: 02/14/20 19:49 Dose: 10 mg Documented by: Potassium Chloride ([facility] 20 [facility] Admin: 02/14/20 16:18 Dose: 20 meq Documented by: Promethazine HCl (Promethazine 25 Mg Tablet) 25 mg PO Q4H PRN PRN PRN Reason: NAUSEA/VOMITING Simethicone (Simethicone 80 Mg Tablet) 80 mg PO TIDPC [facility] [place] Last Admin: 02/14/20 21:18 Dose: 80 mg Documented by: Sodium Chloride (0.9% Saline Lock 10 Ml Syringe) 10 - 40 ml IV UD PRN PRN Reason: SALINE FLUSH Last Admin: 02/14/20 19:50 Dose: 10 ml Documented by: STROKE Vital Signs/Narrative: Vital Signs Pulse 02/15/20 07:00 98 Medical Necessity - Tobacco Use Smoking Status: Former smoker Assessment/Plan All Active Problems (Last Reviewed 02/10/20 @ 16:[address] Benedicto Davis MD) Acute blood loss anemia (Acute) Skin necrosis (Acute) Hematoma of left lower leg (Acute) Frequent falls (Acute) Bronchitis (Resolved) Cellulitis (Resolved) Chest pain (Resolved) Dyspnea (Resolved) Hematoma of leg (Resolved) Open wound of right lower leg (Resolved) Pneumonia (Resolved) Pulmonary edema (Resolved) Secondary pulmonary arterial hypertension (Resolved) Sepsis (Resolved) #Left calf hematoma due to a mechanical fall S/p incision and drainage and evacuation of hematoma. Today's postop day 2. Pain well controlled. Remains on IV vancomycin and Zosyn. plastic surgery on board Wound culture Proteus mirabilis. Fungal culture pending. #Acute on chronic blood loss anemia due to hematoma Status post transfusion of total of 6 units of packed red blood cells. Hemoglobin today is 8.1 Will monitor #Chronic hypoxic respiratory failure due to COPD: On 2 L of oxygen at home. Breathing treatments with bronchodilators. Diurese with IV Lasix 40 mg twice daily as patient is in need of positive fluid balance by 4 L. #Hypertension: On metoprolol. #A. fib: Currently rate controlled. Eliquis on hold due to hematoma. Plastic surgery to help decide when to resume Eliquis. #COPD: Not in exacerbation. On breathing treatment with bronchodilators. #Hyperlipidemia: On statin #Heart failure preserved ejection fraction: Known EF is 50%. Lasix was to IV Lasix today on account of patient being in positive fluid balance by 4 L. #GERD: On famotidine. #Obstructive sleep apnea: On BiPAP nightly #Depression: Fluoxetine #Pulmonary hypertension: On Lasix. DVT prophylaxis: SCDs Inpatient E&M: 51881 Subs Hosp L2
[2020-02-15] MEDS: oxyCODONE 5 MG Tablet 10 MG PO ×3 (08:17→20:26)
[2020-02-15] MEDS: Gabapentin 300 MG Capsule PO ×3 (08:17→16:31)
[2020-02-15 08:21] LABS: Bedside Glucose 113 mg/dL (70-110)
[2020-02-15] MEDS: 0.9% Saline Lock 10 ML Syringe IV ×3 (09:53→17:20)
[2020-02-15] MEDS: Metoprolol Tartrate 50 MG Tablet PO ×2 (09:53→22:21)
[2020-02-15] MEDS: FLUoxetine 20 MG Capsule 60 MG PO (09:53)
[2020-02-15] MEDS: Famotidine 20 MG Tablet PO ×2 (09:53→22:21)
[2020-02-15] MEDS: Furosemide 40 MG/4 ML Vial IV ×2 (09:53→17:20)
[2020-02-15] MEDS: Docusate Sodium 100 MG Capsule PO ×2 (09:53→22:21)
[2020-02-15] MEDS: Ipratropium/Albuterol Sulfate 3 ML AMPUL.NEB INHALATION ×2 (10:43→19:01)
[2020-02-15] MEDS: HYDROmorphone 1 MG/ML Syringe IV (11:14)
--- NOTE | 2020-02-15 11:14 | PN.SURG_ITS ---
Subjective: Postop #2 Patient has wound pain. - Physical Exam Vitals/I&O's: Vital Signs Temp Pulse Resp BP Pulse Ox 98.1 F 75 12 107/57 L 98 02/15/20 09:50 02/15/20 10:45 02/15/20 10:45 02/15/20 09:53 02/15/20 09:50 Oxygen Flow Rate (L/min) 3 Oxygen Delivery Method Nasal Cannula Weight: 330 lb 2.981 oz Body Mass Index (BMI) 51.7 Finger Stick Blood Glucose 155 Intake and Output for Last 24 Hours 02/13/20 02/14/20 02/15/20 23:59 23:59 23:59 Intake Total 1791.66 / 1791.66 5857.5 / 5857.5 1045 / 1045 Output Total 1055 / 1655 1275 / 1525 1050 / 1050 Balance 736.66 / 136.66 4582.5 / 4332.5 -5 / -5 General: Alert, Oriented x3 HEENT: PERRLA, EOMI Oral: Moist Mucosa Neck: Supple Abdomen: Soft, Non-Distended Skin: Ulcer/ Wound - left medial leg wound stable. No active bleeding seen. Redressed with Betadin gauze dressing and compression agata wrap. Will place VAC tomorrow. Neurological: Cranial nerves II-XII grossly intact Psych/Mental Status: Normal Affect, Appropriate Microbiology Past 72 Hours 02/13/20 Unknown Tissue - Leg, Left Gram Stain - Final 02/13/20 Unknown Tissue - Leg, Left Wound Culture - Final Proteus mirabilis 02/12/20 05:20 Mucosa - Nose - Final Laboratory Results 02/11/20 08:10: Crossmatch See Detail 02/11/20 08:10: Crossmatch See Detail 02/11/20 18:10: Crossmatch See Detail 02/14/20 11:37: POC Glucose 119 H 02/14/20 16:31: POC Glucose 132 H 02/14/20 22:10: POC Glucose 129 H 02/15/20 06:08: WBC 5.1, RBC 2.93 L, Hgb 8.1 L, Hct 26.6 L, MCV 90.8, MCH 27.6, MCHC 30.5 L, RDW Std Deviation 51.6 H, RDW Coeff of Shannan 15.6 H, Plt Count 190, MPV 11.4, Immature Gran % (Auto) 0.600, Neut % (Auto) 66.3, Lymph % (Auto) 17.5 L, [place] % (Auto) 12.1 H, Eos % (Auto) 2.9, Baso % (Auto) 0.6, Absolute Neuts (auto) 3.4, Absolute Lymphs (auto) 0.90, Nucleated RBC % 0 02/15/20 06:08: Sodium 137, Potassium 3.6, Chloride 100, Carbon Dioxide 31.0, Anion Gap 6, BUN 18, Creatinine 1.19 H, Estim Creat Clear Calc 51.94, Est GFR (MDRD) Af Amer 61, Est GFR (MDRD) Non-Af 50 L, BUN/Creatinine Ratio 15.1, Glucose 117 H, Calcium 8.6 02/15/20 08:02: POC Glucose 113 H Current Medications Acetaminophen (Acetaminophen 325 Mg Tablet) 650 mg PO Q4H PRN PRN PRN Reason: fever, pain 1-10 Last Admin: 02/14/20 10:08 Dose: 650 mg Documented by: Albuterol/Ipratropium (Ipratropium/Albuterol Sulfate 3 Ml Ampul.Neb) 3 ml INHALATION Q4H.RT [facility] Last Admin: 02/15/20 10:43 Dose: 3 ml Documented by: Atorvastatin Calcium (Atorvastatin Calcium 40 Mg Tablet) 40 mg PO QHS [facility] Last Admin: 02/14/20 22:02 Dose: 40 mg Documented by: Diazepam (Diazepam 5 Mg Tablet) 5 mg PO 4X/DAY PRN PRN PRN Reason: SPASMS Diltiazem HCl (Diltiazem Cd 180 Mg Capsule) 180 mg PO DAILY [facility] Last Admin: 02/15/20 09:53 Dose: 180 mg Documented by: Docusate Sodium (Docusate Sodium 100 Mg Capsule) 100 mg PO BID [facility] Last Admin: 02/15/20 09:53 Dose: 100 mg Documented by: Doxepin HCl (Doxepin Hcl 50 Mg Capsule) 50 mg PO QHS [facility] Last Admin: 02/14/20 22:03 Dose: 50 mg Documented by: Famotidine (Famotidine 20 Mg Tablet) 20 mg PO BID [facility] Last Admin: 02/15/20 09:53 Dose: 20 mg Documented by: Fluoxetine HCl (Fluoxetine 20 Mg Capsule) 60 mg PO DAILY [facility] Last Admin: 02/15/20 09:53 Dose: 60 mg Documented by: Furosemide (Furosemide 40 Mg/4 Ml Vial) 40 mg IV BID@1000,1800 [facility] Last Admin: 02/15/20 09:53 Dose: 40 mg Documented by: Gabapentin (Gabapentin 300 Mg Capsule) 300 mg PO TIDCM [facility] Last Admin: 02/15/20 08:17 Dose: 300 mg Documented by: Hydromorphone HCl (Hydromorphone 1 Mg/Ml Syringe) 1 mg IV Q4H PRN PRN PRN Reason: Pain Score 6-10 Last Admin: 02/14/20 11:38 Dose: 1 mg Documented by: Piperacillin Sod/Tazobactam (Sod 3.375 gm/ Sodium Chloride) 50 mls @ 12.5 mls/hr IV Q8 [facility] Last Infusion: 02/15/20 10:28 Dose: Infused Documented by: Vancomycin IV Pharmacy to Dose (1 ea/ Sodium Chloride) 500 mls @ 250 mls/hr IV X1 PRN; Protocol PRN Reason: Rx to Dose Sodium Chloride () 250 mls @ 15 mls/hr IV .[id number] PRN PRN Reason: Saline Flush Last Infusion: 02/13/20 19:14 Dose: Infused Documented by: Sodium Chloride () 250 mls @ 15 mls/hr IV .[id number] PRN PRN Reason: Additional IVPB Infusion Last Infusion: 02/12/20 07:06 Dose: 0 mls/hr Documented by: Vancomycin HCl (Vancomycin) 1,000 mg in 200 mls @ 200 mls/hr IV Q12H [facility] Last Infusion: 02/15/20 08:13 Dose: Infused Documented by: Levothyroxine Sodium (Levothyroxine 75 Mcg Tablet) 75 mcg PO DAILY@0600 [facility] Last Admin: 02/15/20 05:54 Dose: 75 mcg Documented by: Metoprolol Tartrate (Metoprolol Tartrate 50 Mg Tablet) 50 mg PO BID [facility] Last Admin: 02/15/20 09:53 Dose: 50 mg Documented by: Ondansetron HCl (Ondansetron 4 Mg/2 Ml Vial) 4 mg IV Q6H PRN PRN PRN Reason: NAUSEA Oxycodone HCl (Oxycodone 5 Mg Tablet) 10 mg PO Q4H PRN PRN PRN Reason: Pain Score 4-5 Last Admin: 02/15/20 08:17 Dose: 10 mg Documented by: Potassium Chloride (Potassium Chloride 20 Meq Tablet) 20 meq PO BIDCM [facility] Last Admin: 02/15/20 08:17 Dose: 20 meq Documented by: Promethazine HCl (Promethazine 25 Mg Tablet) 25 mg PO Q4H PRN PRN PRN Reason: NAUSEA/VOMITING Simethicone (Simethicone 80 Mg Tablet) 80 mg PO TIDPC [facility] Last Admin: 02/15/20 08:17 Dose: 80 mg Documented by: Sodium Chloride (0.9% Saline Lock 10 Ml Syringe) 10 - 40 ml IV UD PRN PRN Reason: SALINE FLUSH Last Admin: 02/15/20 09:53 Dose: 10 ml Documented by: Medical Necessity - Tobacco Use Smoking Status: Former smoker Assessment/Plan All Active Problems (Last Reviewed 02/10/20 @ 16:[address] Benedicto Davis MD) Open wound of left lower leg with complication (Acute) Acute blood loss anemia (Acute) Skin necrosis (Acute) Hematoma of left lower leg (Acute) Frequent falls (Acute) Bronchitis (Resolved) Cellulitis (Resolved) Chest pain (Resolved) Dyspnea (Resolved) Hematoma of leg (Resolved) Open wound of right lower leg (Resolved) Pneumonia (Resolved) Pulmonary edema (Resolved) Secondary pulmonary arterial hypertension (Resolved) Sepsis (Resolved) ASSESSMENT 1. Traumatic painful hematoma left medial leg with overlying skin compromise and some necrosis. 2. Open surgical hematoma wound left medial leg. 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 4. Frequent falls. 5. History of MRSA. 5. Acute blood loss anemia from traumatic hematoma. 7. Hypopotassiumemia. PLAN Her CTA was negative for pulmonary embolism. Continue Zosyn. Stop the Vancomycin. Operative culture shows Proteus mirabilis. Hematoma wound is stable. No active bleeding seen. No clinical evidence of persistent infection. Wound redressed with Betadine gauze compression dressing. She tolerated it reasonably well. She needed IV analgesia. Will apply the VAC tomorrow. After discharge, [facility]. If there is a plateau in the healing process, can proceed with delayed closure with skin grafting. Patient's Hgb was 8.1. She received PRBC. She has acute blood loss anemia from the traumatic hematoma. Will recheck the Hgb daily. Will start Iron supplementation. Potassium is slowly improving. It is at 3.6 today. Continue supplementation. Prealbumin was 6.4. Encourage nutritional supplementation with protein to help the healing process.
[2020-02-15 11:46] LABS: Bedside Glucose 97 mg/dL (70-110)
[2020-02-15] MEDS: Acetaminophen 325 MG Tablet 650 MG PO (15:34)
[2020-02-15 16:50] LABS: Bedside Glucose 110 mg/dL (70-110)
[2020-02-15] MEDS: Atorvastatin Calcium 40 MG Tablet PO (22:21)
[2020-02-15] MEDS: DOXEPIN HCL 50 MG CAPSULE PO (22:21)
[2020-02-15 22:36] LABS: Bedside Glucose 81 mg/dL (70-110)
[2020-02-16] VITALS (21 sets, daily range): BP systolic 85–104; BP diastolic 51–68; PULSE 72–120; RESP 10–22; TEMP 36.7–37.4; O2SAT 90–98
[2020-02-16 05:36] LABS: Absolute Lymphocyte Count 0.84 X10^3/uL (0.83-4.51); Absolute Neutrophil Count 3.9 X10^3/uL (2.0-7.7); Basophil# 0.03 X10^3/uL; Basophil% 0.5 % (0-1); Eosinophil# 0.23 X10^3/uL; Hematocrit 25.4 % (37-47); Hemoglobin 7.6 g/dL (12.0-15.0); Lymphocyte # 0.84 X10^3/ul (4.0); Lymphocyte % 14.6 % (19-41); Mean Corp Hgb Conc 29.9 g/dL (32-36); Mean Corpuscular Hgb 27.7 pg (27.0-32.0); Mean Corpuscular Volume 92.7 fL (81-99); Mean Platelet Vol. 11.9 fl (6.2-12.0); Monocyte% 12.1 % (0-10); NRBC Flagged by Analyzer 0 % (0-5); Neutrophil # 3.93 X10^3/uL (2.7-7.7); Neutrophil % 68.1 % (47-70); Platelet Count 205 K/mm3 (150-450); RBC Distribution Width CV 15.5 % (11.6-14.6); RBC Distribution Width SD 52.1 fl (35.1-43.9); Red Blood Count 2.74 M/mm3 (4.2-5.4); White Blood Count 5.8 K/mm3 (4.4-11.0)
[2020-02-16] MEDS: Levothyroxine 75 MCG Tablet PO (06:04)
[2020-02-16] MEDS: Ipratropium/Albuterol Sulfate 3 ML AMPUL.NEB INHALATION ×4 (06:04→19:44)
[2020-02-16 06:07] LABS: Anion Gap 6 (5-15); BUN 21 mg/dL (7-18); BUN/Creat Ratio 15.2 RATIO (10-20); Calcium,Total 8.4 mg/dL (8.5-10.1); Chloride 98 mmol/L (98-107); Creatinine, Serum 1.38 mg/dL (0.55-1.02); EST Glomerular Filtration Rate 42 mL/min (>60); Est Glom Filt Rate - Afr Amer 51 mL/min (>60); Estimated Creatinine Clearance 44.79 ml/min; Glucose 102 mg/dL (74-106); Sodium Level 136 mmol/L (136-145)
[2020-02-16] MEDS: Gabapentin 300 MG Capsule PO ×3 (07:54→16:24)
[2020-02-16 08:00] LABS: Bedside Glucose 102 mg/dL (70-110)
[2020-02-16] MEDS: Iron Polysaccharide Complex 150 MG CAPSULE PO (08:37)
[2020-02-16] MEDS: oxyCODONE 5 MG Tablet 10 MG PO ×2 (08:44→22:25)
[2020-02-16] MEDS: Docusate Sodium 100 MG Capsule PO ×2 (10:32→22:23)
[2020-02-16] MEDS: FLUoxetine 20 MG Capsule 60 MG PO (10:32)
[2020-02-16] MEDS: Famotidine 20 MG Tablet PO ×2 (10:33→22:25)
--- NOTE | 2020-02-16 11:00 | NURSING ---
wound photo: left anteromedial lower leg
--- NOTE | 2020-02-16 11:06 | CASEMGMT ---
Addendum entered by Josselyn Del Rosario 02/16/20 14:02: 1300 Therapy eval'd pt at this time and are recommending SNF at this time. Fredy SW aware, voices understanding. CM to follow. Farzaneh ARNOLD CM Original Note: Wound vac was placed today and per Dr. Davis, pt will go home on po antibx, most likely discharge tomorrow. Sandra at [facility] updated on all at this time. PT/OT added as pt has been non-wgt bearing since sunday. CM to follow. Sandra at [facility] updated on all, voices understanding. Farzaneh ARNOLD CM
[2020-02-16] MEDS: dilTIAZem CD 180 MG Capsule PO (11:28)
[2020-02-16 11:50] LABS: Bedside Glucose 103 mg/dL (70-110)
--- NOTE | 2020-02-16 14:14 | CASEMGMT ---
Therapy said patient did not do well with therapy and she will need placement. DEBBIE met with patient, introduced self and role at [facility]. SW discussed d/c plan and going somewhere for rehab. DEBBIE showed her the list of facilities that are in network with her insurance. She chose [facility]. DEBBIE told her SW will work on setting this up. She asked if she is able to change her mind. DEBBIE told her she can always change her mind, but it is better to have everything set up and not need it. She understood. DEBBIE faxed referral to [facility] as well as [employer]. DEBBIE also spoke with Maty at [facility]. She will get back to DEBBIE as soon as she receives the faxes. Maty: [phone]. DEBBIE also called Fanny at [facility] with referral. Await return calls. Plan; SNF pending accepting facility and insurance approval. Paradise FIGUEROA
--- NOTE | 2020-02-16 14:55 | CASEMGMT ---
Addendum entered by Paradise Merida 02/16/20 15:33: Referral faxed to [facility]. Paradise FIGUEROA Original Note: SW received a call from Fanny at [facility]. She said they are not taking any referrals right now due to having 2 employees test positive. SW spoke with patient and let her know. She then chose [facility]. SW will fax referral. Paradise GARCIA MSW
[2020-02-16 16:41] LABS: Bedside Glucose 79 mg/dL (70-110)
--- NOTE | 2020-02-16 18:02 | PN_ITS ---
Subjective: Pt c/o sig pain in the calf area as the wound vac had just been placed. Cx from hematoma are growing Proteus now. Vitals/I&O's: Vital Signs Temp Pulse Resp BP Pulse Ox 98.3 F 74 18 94/55 L 95 02/16/20 17:34 02/16/20 17:34 02/16/20 17:34 02/16/20 17:34 02/16/20 17:34 Oxygen Flow Rate (L/min) 2 Oxygen Delivery Method Nasal Cannula Weight: 149.77 kg Body Mass Index (BMI) 51.7 Finger Stick Blood Glucose 155 Intake and Output for Last 24 Hours 02/14/20 02/15/20 02/16/20 23:59 23:59 23:59 Intake Total 5857.5 / 5857.5 1575 / 1825 1600 / 1600 Output Total 1275 / 1525 1950 / 1950 1150 / 1150 Balance 4582.5 / 4332.5 -375 / -125 450 / 450 General: Alert, Oriented x3, Cooperative, No apparent distress, Well developed, Well nourished, - - Obese WF, Lying in bed, appears a bit uncomfortable HEENT: Atraumatic, PERRLA, EOMI, Normocephalic, EAC Clear Oral: Moist Mucosa Neck: Supple, Trachea Midline Lungs: Clear to auscultation, Normal air movement, No rhonchi, No wheeze, No rales Cardiovascular: Regular rate, Regular Rhythm, Normal S1, Normal S2, No murmurs, No Ectopic Activity, No rub noted, No Gallop Abdomen: Bowel Sounds Present, Soft, Non Tender, Obese Extremities: No clubbing, No cyanosis, Capillary Refill Less than 3 Seconds, Edema - distal LLE with pitting, Peripheral Pulses Normal Skin: - - L LE with vac in place and LAZARO bandage in place Musculoskeletal: No Muscle Wasting, Arthritic Changes, Tenderness - L LE Neurological: Cranial nerves II-XII grossly intact, Neuro grossly intact Psych/Mental Status: Normal Affect, Appropriate Microbiology Past 72 Hours 02/13/20 Unknown Tissue - Leg, Left Gram Stain - Final 02/13/20 Unknown Tissue - Leg, Left Wound Culture - Final Proteus mirabilis Laboratory Results 02/15/20 22:28: POC Glucose 81 02/16/20 04:42: WBC 5.8, RBC 2.74 L, Hgb 7.6 L, Hct 25.4 L, MCV 92.7, MCH 27.7, MCHC 29.9 L, RDW Std Deviation 52.1 H, RDW Coeff of Shannan 15.5 H, Plt Count 205, MPV 11.9, Immature Gran % (Auto) 0.700, Neut % (Auto) 68.1, Lymph % (Auto) 14.6 L, [place] % (Auto) 12.1 H, Eos % (Auto) 4.0, Baso % (Auto) 0.5, Absolute Neuts (auto) 3.9, Absolute Lymphs (auto) 0.84, Nucleated RBC % 0 02/16/20 04:42: Sodium 136, Potassium 4.0, Chloride 98, Carbon Dioxide 32.0, Anion Gap 6, BUN 21 H, Creatinine 1.38 H, Estim Creat Clear Calc 44.79, Est GFR (MDRD) Af Amer 51 L, Est GFR (MDRD) Non-Af 42 L, BUN/Creatinine Ratio 15.2, Glucose 102, Calcium 8.4 L 02/16/20 07:57: POC Glucose 102 02/16/20 11:44: POC Glucose 103 02/16/20 16:37: POC Glucose 79 Current Medications Acetaminophen (Acetaminophen 325 Mg Tablet) 650 mg PO Q4H PRN PRN PRN Reason: fever, pain 1-10 Last Admin: 02/15/20 15:34 Dose: 650 mg Documented by: Albuterol/Ipratropium (Ipratropium/Albuterol Sulfate 3 Ml Ampul.Neb) 3 ml INHALATION Q4H.RT [facility] Last Admin: 02/16/20 14:15 Dose: 3 ml Documented by: Atorvastatin Calcium (Atorvastatin Calcium 40 Mg Tablet) 40 mg PO QHS [facility] Last Admin: 02/15/20 22:21 Dose: 40 mg Documented by: Diazepam (Diazepam 5 Mg Tablet) 5 mg PO 4X/DAY PRN PRN PRN Reason: SPASMS Docusate Sodium (Docusate Sodium 100 Mg Capsule) 100 mg PO BID [facility] Last Admin: 02/16/20 10:32 Dose: 100 mg Documented by: Doxepin HCl (Doxepin Hcl 50 Mg Capsule) 50 mg PO QHS [facility] Last Admin: 02/15/20 22:21 Dose: 50 mg Documented by: Famotidine (Famotidine 20 Mg Tablet) 20 mg PO BID [facility] Last Admin: 02/16/20 10:33 Dose: 20 mg Documented by: Fluoxetine HCl (Fluoxetine 20 Mg Capsule) 60 mg PO DAILY [facility] Last Admin: 02/16/20 10:32 Dose: 60 mg Documented by: Furosemide (Furosemide 40 Mg/4 Ml Vial) 40 mg IV BID@1000,1800 [facility] Last Admin: 02/16/20 17:36 Dose: Not Given Documented by: Gabapentin (Gabapentin 300 Mg Capsule) 300 mg PO TIDCM [facility] Last Admin: 02/16/20 16:24 Dose: 300 mg Documented by: Hydromorphone HCl (Hydromorphone 1 Mg/Ml Syringe) 1 mg IV Q4H PRN PRN PRN Reason: Pain Score 6-10 Last Admin: 02/15/20 11:14 Dose: 1 mg Documented by: Piperacillin Sod/Tazobactam (Sod 3.375 gm/ Sodium Chloride) 50 mls @ 12.5 mls/hr IV Q8 [facility] Last Admin: 02/16/20 13:15 Dose: 12.5 mls/hr Documented by: Sodium Chloride () 250 mls @ 15 mls/hr IV .[id number] PRN PRN Reason: Saline Flush Last Infusion: 02/13/20 19:14 Dose: Infused Documented by: Sodium Chloride () 250 mls @ 15 mls/hr IV .[id number] PRN PRN Reason: Additional IVPB Infusion Last Infusion: 02/15/20 17:30 Dose: 15 mls/hr Documented by: Levothyroxine Sodium (Levothyroxine 75 Mcg Tablet) 75 mcg PO DAILY@0600 [facility] Last Admin: 02/16/20 06:04 Dose: 75 mcg Documented by: Metoprolol Tartrate (Metoprolol Tartrate 50 Mg Tablet) 50 mg PO BID [facility] Last Admin: 02/16/20 11:29 Dose: Not Given Documented by: Nutritional Formula (Nutritional Supplement (Pedro Pablo) Packet) 1 packet PO BIDCM [facility] Last Admin: 02/16/20 16:23 Dose: 1 packet Documented by: Ondansetron HCl (Ondansetron 4 Mg/2 Ml Vial) 4 mg IV Q6H PRN PRN PRN Reason: NAUSEA Oxycodone HCl (Oxycodone 5 Mg Tablet) 10 mg PO Q4H PRN PRN PRN Reason: Pain Score 4-5 Last Admin: 02/16/20 08:44 Dose: 10 mg Documented by: Polysaccharide Iron Complex (Iron Polysaccharide Complex 150 Mg Capsule) [facility] Last Admin: 02/16/20 08:37 Dose: 150 mg Documented by: Potassium Chloride (Potassium Chloride 20 Meq Tablet) 20 meq [facility] Last Admin: 02/16/20 16:24 Dose: 20 meq Documented by: Promethazine HCl (Promethazine 25 Mg Tablet) 25 mg PO Q4H PRN PRN PRN Reason: NAUSEA/VOMITING Simethicone (Simethicone 80 Mg Tablet) 80 mg PO TIDPC [facility] Last Admin: 02/16/20 13:14 Dose: 80 mg Documented by: Sodium Chloride (0.9% Saline Lock 10 Ml Syringe) 10 - 40 ml IV UD PRN PRN Reason: SALINE FLUSH Last Admin: 02/15/20 17:20 Dose: 10 ml Documented by: STROKE Vital Signs/Narrative: Vital Signs Temp Pulse Resp BP Pulse Ox 02/16/20 17:34 98.3 F 74 18 94/55 L 95 02/16/20 14:47 98.5 F 79 18 94/59 L 95 02/16/20 14:15 89 18 Medical Necessity - Tobacco Use Smoking Status: Former smoker Assessment/Plan All Active Problems (Last Reviewed 02/10/20 @ 16:[address] Benedicto Davis MD) Open wound of left lower leg with complication (Acute) Acute blood loss anemia (Acute) Skin necrosis (Acute) Hematoma of left lower leg (Acute) Frequent falls (Acute) Bronchitis (Resolved) Cellulitis (Resolved) Chest pain (Resolved) Dyspnea (Resolved) Hematoma of leg (Resolved) Open wound of right lower leg (Resolved) Pneumonia (Resolved) Pulmonary edema (Resolved) Secondary pulmonary arterial hypertension (Resolved) Sepsis (Resolved) Large Infected L Calf Hematoma s/p Mechanical Fall POD3 I&D -Dr. Davis following -Proteus on cx -switch to CTX as is sensitive and ease of dosing -consult ID -wound care following and vac in place -wound center at d/c -Pain meds -bowel regimen Acute on Chronic Hypoxic Respiratory Failure -resolved -CTA neg for PE -on 2 L with SpO2 95% Acute on Chronic Anemia -hgb stable this am -has required transfusion (6 u PRBC total) -repeat in am and transfuse for < 7 HTN/HPL -BP has been on the low side (will decrease lasix and hold CCB) -continue Statin -continue Metoprolol -decrease Lasix -hold Diltazem Chronic A-fib -last dose of Eliquis was on Sunday02/07/2020 -continue BB and hold CCB with lower BP HFpEF -ECHO from 2018 shows EF of 50% -suspect this is mostly from R sided issues -decrease Lasix to 40 mg daily for now-->home dose is 40 mg BID SVETLANA 2/2 diuresis -decrease from IVP 40 BID to 40 mg po daily -home dose is 40 mg BID [id number] -SSI -Carb controlled diet -BGT controlled JASMIN -BIPAP at HS 10/ with 2 L bleed of O2 PAH WHO Group 2-3 -diuresis--> home meds COPD -pt is not on chronic inhalers -remote h/o tobacco abuse -PRN nebs Depression -continue Fluoxetine GERD -on Zantac at home -will do Famotidine here 20 mg daily MO -BMI 47 -recommend wgt loss DVT Prophylaxis -SCD's R LE only -hold Heparin/LMWH for now with large L LE Hematoma -pt on DOAC at baseline Code Status -Full Inpatient E&M: 65990 Subs Hosp L3
--- NOTE | 2020-02-16 18:10 | PN.SURG_ITS ---
Subjective: Postop #3 Patient has wound pain. VAC was applied today. - Physical Exam Vitals/I&O's: Vital Signs Temp Pulse Resp BP Pulse Ox 98.3 F 74 18 94/55 L 95 02/16/20 17:34 02/16/20 17:34 02/16/20 17:34 02/16/20 17:34 02/16/20 17:34 Oxygen Flow Rate (L/min) 2 Oxygen Delivery Method Nasal Cannula Weight: 330 lb 2.981 oz Body Mass Index (BMI) 51.7 Finger Stick Blood Glucose 155 Intake and Output for Last 24 Hours 02/14/20 02/15/20 02/16/20 23:59 23:59 23:59 Intake Total 5857.5 / 5857.5 1575 / 1825 1600 / 1600 Output Total 1275 / 1525 1950 / 1950 1150 / 1150 Balance 4582.5 / 4332.5 -375 / -125 450 / 450 General: Alert, Oriented x3 HEENT: PERRLA, EOMI Oral: Moist Mucosa Neck: Supple Abdomen: Soft, Non-Distended Skin: Ulcer/ Wound - left medial leg wound stable. No active bleeding noted. VAC applied today. Neurological: Cranial nerves II-XII grossly intact Psych/Mental Status: Normal Affect, Appropriate Microbiology Past 72 Hours 02/13/20 Unknown Tissue - Leg, Left Gram Stain - Final 02/13/20 Unknown Tissue - Leg, Left Wound Culture - Final Proteus mirabilis Laboratory Results 02/15/20 22:28: POC Glucose 81 02/16/20 04:42: WBC 5.8, RBC 2.74 L, Hgb 7.6 L, Hct 25.4 L, MCV 92.7, MCH 27.7, MCHC 29.9 L, RDW Std Deviation 52.1 H, RDW Coeff of Shannan 15.5 H, Plt Count 205, MPV 11.9, Immature Gran % (Auto) 0.700, Neut % (Auto) 68.1, Lymph % (Auto) 14.6 L, [place] % (Auto) 12.1 H, Eos % (Auto) 4.0, Baso % (Auto) 0.5, Absolute Neuts (auto) 3.9, Absolute Lymphs (auto) 0.84, Nucleated RBC % 0 02/16/20 04:42: Sodium 136, Potassium 4.0, Chloride 98, Carbon Dioxide 32.0, Anion Gap 6, BUN 21 H, Creatinine 1.38 H, Estim Creat Clear Calc 44.79, Est GFR (MDRD) Af Amer 51 L, Est GFR (MDRD) Non-Af 42 L, BUN/Creatinine Ratio 15.2, Glucose 102, Calcium 8.4 L 02/16/20 07:57: POC Glucose 102 02/16/20 11:44: POC Glucose 103 02/16/20 16:37: POC Glucose 79 Current Medications Acetaminophen (Acetaminophen 325 Mg Tablet) 650 mg PO Q4H PRN PRN PRN Reason: fever, pain 1-10 Last Admin: 02/15/20 15:34 Dose: 650 mg Documented by: Albuterol/Ipratropium (Ipratropium/Albuterol Sulfate 3 Ml Ampul.Neb) 3 ml INHALATION Q4H.RT [facility] Last Admin: 02/16/20 14:15 Dose: 3 ml Documented by: Atorvastatin Calcium (Atorvastatin Calcium 40 Mg Tablet) 40 mg PO QHS [facility] Last Admin: 02/15/20 22:21 Dose: 40 mg Documented by: Diazepam (Diazepam 5 Mg Tablet) 5 mg PO 4X/DAY PRN PRN PRN Reason: SPASMS Docusate Sodium (Docusate Sodium 100 Mg Capsule) 100 mg PO BID [facility] Last Admin: 02/16/20 10:32 Dose: 100 mg Documented by: Doxepin HCl (Doxepin Hcl 50 Mg Capsule) 50 mg PO QHS [facility] Last Admin: 02/15/20 22:21 Dose: 50 mg Documented by: Famotidine (Famotidine 20 Mg Tablet) 20 mg PO BID [facility] Last Admin: 02/16/20 10:33 Dose: 20 mg Documented by: Fluoxetine HCl (Fluoxetine 20 Mg Capsule) 60 mg PO DAILY [facility] Last Admin: 02/16/20 10:32 Dose: 60 mg Documented by: Furosemide (Furosemide 40 Mg/4 Ml Vial) 40 mg IV BID@1000,1800 [facility] Last Admin: 02/16/20 17:36 Dose: Not Given Documented by: Gabapentin (Gabapentin 300 Mg Capsule) 300 mg PO TIDCM [facility] Last Admin: 02/16/20 16:24 Dose: 300 mg Documented by: Hydromorphone HCl (Hydromorphone 1 Mg/Ml Syringe) 1 mg IV Q4H PRN PRN PRN Reason: Pain Score 6-10 Last Admin: 02/15/20 11:14 Dose: 1 mg Documented by: Sodium Chloride () 250 mls @ 15 mls/hr IV .[id number] PRN PRN Reason: Saline Flush Last Infusion: 02/13/20 19:14 Dose: Infused Documented by: Sodium Chloride () 250 mls @ 15 mls/hr IV .[id number] PRN PRN Reason: Additional IVPB Infusion Last Infusion: 02/15/20 17:30 Dose: 15 mls/hr Documented by: Ceftriaxone Sodium 2 gm/ (Sodium Chloride) 50 mls @ 100 mls/hr IV Q24 [facility] Levothyroxine Sodium (Levothyroxine 75 Mcg Tablet) 75 mcg PO DAILY@0600 [facility] Last Admin: 02/16/20 06:04 Dose: 75 mcg Documented by: Metoprolol Tartrate (Metoprolol Tartrate 50 Mg Tablet) 50 mg PO BID [facility] Last Admin: 02/16/20 11:29 Dose: Not Given Documented by: Nutritional Formula ([facility]al Supp[facility] ([place]) Packet) [facility] Last Admin: 02/16/20 16:23 Dose: 1 packet Documented by: Ondansetron HCl (Ondansetron 4 Mg/2 Ml Vial) 4 mg IV Q6H PRN PRN PRN Reason: NAUSEA Oxycodone HCl (Oxycodone 5 Mg Tablet) 10 mg PO Q4H PRN PRN PRN Reason: Pain Score 4-5 Last Admin: 02/16/20 08:44 Dose: 10 mg Documented by: Polysaccharide Iron Complex (Iron Polysaccharide Complex 150 Mg Capsule) [facility] Last Admin: 02/16/20 08:37 Dose: 150 mg Documented by: Potassium Chloride (Potassium Chloride 20 Meq Tablet) [facility] Last Admin: 02/16/20 16:24 Dose: 20 meq Documented by: Promethazine HCl (Promethazine 25 Mg Tablet) 25 mg PO Q4H PRN PRN PRN Reason: NAUSEA/VOMITING Simethicone (Simethicone 80 Mg Tablet) [facility] Last Admin: 02/16/20 13:14 Dose: 80 mg Documented by: Sodium Chloride (0.9% Saline Lock 10 Ml Syringe) 10 - 40 ml IV UD PRN PRN Reason: SALINE FLUSH Last Admin: 02/15/20 17:20 Dose: 10 ml Documented by: Medical Necessity - Tobacco Use Smoking Status: Former smoker Assessment/Plan All Active Problems (Last Reviewed 02/10/20 @ 16:[address] Benedicto Davis MD) Open wound of left lower leg with complication (Acute) Acute blood loss anemia (Acute) Skin necrosis (Acute) Hematoma of left lower leg (Acute) Frequent falls (Acute) Bronchitis (Resolved) Cellulitis (Resolved) Chest pain (Resolved) Dyspnea (Resolved) Hematoma of leg (Resolved) Open wound of right lower leg (Resolved) Pneumonia (Resolved) Pulmonary edema (Resolved) Secondary pulmonary arterial hypertension (Resolved) Sepsis (Resolved) ASSESSMENT 1. Traumatic painful hematoma left medial leg with overlying skin compromise and some necrosis. 2. Open surgical hematoma wound left medial leg. 3. long-term use of anticoagulants - Eliquis. 4. Frequent falls. 5. History of MRSA. 5. Acute blood loss anemia from traumatic hematoma. 7. Hypopotassiumemia. PLAN Her CTA was negative for pulmonary embolism. Change Zosyn to Ceftriaxone. Easier to administer as outpatient as it is only once per day. Operative culture shows Proteus mirabilis. Hematoma wound is stable. No active bleeding seen. No clinical evidence of persistent infection. VAC applied today. After discharge, will followup at the Wound Center. If there is a plateau in the healing process, can proceed with delayed closure with skin grafting. Patient's Hgb decreased to 7.6 from 8.1. She received PRBC. She has acute blood loss anemia from the traumatic hematoma. Will recheck the Hgb daily. Continue Iron supplementation. Potassium improving. It is at 4.0 today. Continue supplementation. Prealbumin was 6.4. Encourage nutritional supplementation with protein to help the healing process.
[2020-02-16] MEDS: Atorvastatin Calcium 40 MG Tablet PO (22:23)
[2020-02-16] MEDS: Metoprolol Tartrate 50 MG Tablet PO (22:24)
[2020-02-16] MEDS: DOXEPIN HCL 50 MG CAPSULE PO (22:24)
[2020-02-17] VITALS (17 sets, daily range): BP systolic 97–116; BP diastolic 55–64; PULSE 58–97; RESP 16–19; TEMP 36.6–36.9; O2SAT 93–100
[2020-02-17] MEDS: Levothyroxine 75 MCG Tablet PO (06:10)
--- NOTE | 2020-02-17 07:39 | PN_ITS ---
Patient Problems: Active and Suspected Problems (Last Reviewed 02/10/20 @ 16:[address] Benedicto Davis MD) Skin necrosis (Acute) Hematoma of left lower leg (Acute) Subjective: Patient with no acute events overnight per self and per nursing report. Patient notes pain is better controlled but requesting oral regimen currently. VAC is in place to the lower extremity and output is serosanguineous. Patient with ongoing evaluation per therapy with likely plan snf facility placement given severity of weakness and need for continued VAC care. Discussed case with infectious disease who noted intention for transition to oral antibiotic therapy as cultures from surgery with Proteus therefore recommended Keflex 500 mg p.o. twice daily for an additional 5 days patient denies fevers, chills, nausea, emesis, abdominal pain, chest pain or dyspnea. Objective: Physical Examination: General: awake, alert, oriented x 3 and cooperative, seated upright in the PCU bed in no apparent distress, notes some current discomfort to the left lower extremity asking for pain pill. Skin: normal color, turgor, no icterus, cyanosis except noted left lower extremity dressed, VAC in place, serosanguineous drainage noted in back compartment. HEENT: AT/NC, EOMI, PERRLA, MMM. Lungs: Decreased, greater bases, distant, moderate effort, no evidence of distress, no rales, ronchi or wheezing. Heart: Regular rate and rhythm; no gallop, rub audible. Abdomen: soft, morbidly obese, NTTP, ND, normal BS. Extremities: no cyanosis or clubbing, left lower extremity with dressing in place, VAC in place, serosanguineous drainage in compartment. Neurological: patient awake, alert, oriented x 3; cognitive function intact; pupils equally reactive to light and accomodation; cranial nerves II-XII grossly normal, moving all 4 extremities, except extremely limited given habitus and recent operative intervention and underlying comorbidities, strength accordingly severely globally decreased. Psychiatric: affect appears fatigued otherwise normal, no acute evidence of depressive or anxiety feelings. Vitals/I&O's: Vital Signs Temp Pulse Resp BP Pulse Ox 97.8 F 77 19 H 103/57 L 97 02/17/20 02:35 02/17/20 03:35 02/17/20 02:35 02/17/20 02:35 11/10/20 02:35 Oxygen Flow Rate (L/min) 3 Oxygen Delivery Method Bi-pap Weight: 330 lb 2.981 oz Body Mass Index (BMI) 51.7 Finger Stick Blood Glucose 155 Intake and Output for Last 24 Hours 02/15/20 02/16/20 02/17/20 23:59 23:59 23:59 Intake Total 1575 / 1825 1900.0 / 2300.0 600 / 600 Output Total 1950 / 1950 1150 / 1450 550 / 550 Balance -375 / -125 750.0 / 850.0 50 / 50 Microbiology Past 72 Hours 02/13/20 Unknown Tissue - Leg, Left Gram Stain - Final 02/13/20 Unknown Tissue - Leg, Left Wound Culture - Final Proteus mirabilis Laboratory Results 02/16/20 07:57: POC Glucose 102 02/16/20 11:44: POC Glucose 103 02/16/20 16:37: POC Glucose 79 Current Medications Acetaminophen (Acetaminophen 325 Mg Tablet) 650 mg PO Q4H PRN PRN PRN Reason: fever, pain 1-10 Last Admin: 02/15/20 15:34 Dose: 650 mg Documented by: Albuterol/Ipratropium (Ipratropium/Albuterol Sulfate 3 Ml Ampul.Neb) 3 ml INHALATION Q4H.RT [facility] Last Admin: 02/16/20 19:44 Dose: 3 ml Documented by: Atorvastatin Calcium (Atorvastatin Calcium 40 Mg Tablet) 40 mg PO QHS [facility] Last Admin: 02/16/20 22:23 Dose: 40 mg Documented by: Diazepam (Diazepam 5 Mg Tablet) 5 mg PO 4X/DAY PRN PRN PRN Reason: SPASMS Docusate Sodium (Docusate Sodium 100 Mg Capsule) 100 mg PO BID [facility] Last Admin: 02/16/20 22:23 Dose: 100 mg Documented by: Doxepin HCl (Doxepin Hcl 50 Mg Capsule) 50 mg PO QHS [facility] Last Admin: 02/16/20 22:24 Dose: 50 mg Documented by: Famotidine (Famotidine 20 Mg Tablet) 20 mg PO BID [facility] Last Admin: 02/16/20 22:25 Dose: 20 mg Documented by: Fluoxetine HCl (Fluoxetine 20 Mg Capsule) 60 mg PO DAILY [facility] Last Admin: 02/16/20 10:32 Dose: 60 mg Documented by: Furosemide (Furosemide 40 Mg Tablet) 40 mg PO DAILY [facility] Gabapentin (Gabapentin 300 Mg Capsule) 300 mg PO TIDCM [facility] Last Admin: 02/16/20 16:24 Dose: 300 mg Documented by: Hydromorphone HCl (Hydromorphone 1 Mg/Ml Syringe) 1 mg IV Q4H PRN PRN PRN Reason: Pain Score 6-10 Last Admin: 02/15/20 11:14 Dose: 1 mg Documented by: Sodium Chloride () 250 mls @ 15 mls/hr IV .[id number] PRN PRN Reason: Saline Flush Last Infusion: 02/13/20 19:14 Dose: Infused Documented by: Sodium Chloride () 250 mls @ 15 mls/hr IV .[id number] PRN PRN Reason: Additional IVPB Infusion Last Infusion: 02/16/20 18:25 Dose: Infused Documented by: Ceftriaxone Sodium 2 gm/ (Sodium Chloride) 50 mls @ 100 mls/hr IV Q24 [facility] Levothyroxine Sodium (Levothyroxine 75 Mcg Tablet) 75 mcg PO DAILY@0600 [facility] Last Admin: 02/17/20 06:10 Dose: 75 mcg Documented by: Metoprolol Tartrate (Metoprolol Tartrate 50 Mg Tablet) 50 mg PO BID [facility] Last Admin: 02/16/20 22:24 Dose: 50 mg Documented by: Nutritional Formula ([facility]ritional Supp[facility] (Pedro Pablo) Packet) [facility] Last Admin: 02/16/20 16:23 Dose: 1 packet Documented by: Ondansetron HCl (Ondansetron 4 Mg/2 Ml Vial) 4 mg IV Q6H PRN PRN PRN Reason: NAUSEA Oxycodone HCl (Oxycodone 5 Mg Tablet) 10 mg PO Q4H PRN PRN PRN Reason: Pain Score 4-5 Last Admin: 02/16/20 22:25 Dose: 10 mg Documented by: Polysaccharide Iron Complex (Iron Polysaccharide Complex 150 Mg Capsule) [facility] Last Admin: 02/16/20 08:37 Dose: 150 mg Documented by: Promethazine HCl (Promethazine 25 Mg Tablet) 25 mg PO Q4H PRN PRN PRN Reason: NAUSEA/VOMITING Simethicone ([facility]eth[facility] 80 Mg Tablet) [facility] Last Admin: 02/16/20 18:14 Dose: 80 mg Documented by: Sodium Chloride (0.9% Saline Lock 10 Ml Syringe) 10 - 40 ml IV UD PRN PRN Reason: SALINE FLUSH Last Admin: 02/15/20 17:20 Dose: 10 ml Documented by: Medical Necessity - Tobacco Use Smoking Status: Former smoker Assessment/Plan All Active Problems (Last Reviewed 02/10/20 @ 16:[address] Benedicto Davis MD) Open wound of left lower leg with complication (Acute) Acute blood loss anemia (Acute) Skin necrosis (Acute) Hematoma of left lower leg (Acute) Frequent falls (Acute) Bronchitis (Resolved) Cellulitis (Resolved) Chest pain (Resolved) Dyspnea (Resolved) Hematoma of leg (Resolved) Open wound of right lower leg (Resolved) Pneumonia (Resolved) Pulmonary edema (Resolved) Secondary pulmonary arterial hypertension (Resolved) Sepsis (Resolved) The patient is a 54 y/o F w/ PMHx: Morbid Obesity, Chronic Diastolic CHF, Chronic COPD, Chronic hypoxic respiratory failure, JASMIN on BIPAP q HS, HTN, HLD, Chronic AF, GERD, PAH, Diabetes mellitus type II, Hypothyroidism who presents to the [facility] on 02/10/20 as direct admission per Dr. Davis with history of 02/06/2020 mechanical fall with left lower extremity increased pain, swelling with resulting traumatic hematoma and concern for skin compromise. 1. Infected (Proteus) left calf hematoma secondary to mechanical fall: Patient admitted per Dr. Davis, initially on IV vancomycin and Zosyn, hemoglobin upon presentation 6.8 with 2 unit PRBC administered with repeat 6.2 therefore additional PRBCs administered and as noted a total of 6 unit PRBC administered during presentation, 02/17/2020 hemoglobin 7.3, continue to monitor and give additional regimen as needed, 02/13/2020 OR with surgical I&D and evacuation of traumatic infected necrotic hematoma and excisional debridement of the or midline compromise skin with necrosis with VAC placement, eventually transition to Rocephin with now infectious disease evaluation with recommended transition to Keflex 500 mg p.o. twice daily for an additional 5 days, PT and OT assessments as well as case management for plan transition to snf facility for ongoing wound care treatment. Medical service amenable to patient discharge to skilled facility once cleared per surgery primary service. 2. Acute on chronic anemia secondary to hematoma from mechanical fall: Admission hemoglobin 6.8, secondary to acute presentation as noted #1 with hematoma, patient received a total of 6 units PRBC, status post operative intervention with VAC with aggressive surgical debridement. 02/17/2020 hemoglobin 7.3, continue to trend and if necessary may need additional PRBC administration. 3. Acute kidney injury on CKD stage III: Likely secondary to diuresis with initially 40 mg twice daily Lasix regimen decreased to 40 mg p.o. daily and #1 presentation with initial 02/10/2020 admission BUN/creatinine 38/1.74, clinically improved, 02/16/2020 BUN/creatinine 21/1.38. 4. Acute on Chronic Hypoxic Respiratory Failure secondary to Acute on Chronic diastolic CHF, likely secondary to Volume Overload with PRBC administration: Holding patient anticoagulation therapy given acute presentation as noted #1, she was administered 6 unit PRBC given acute presentation, presentation likely secondary to overload, CTA unremarkable with no evidence of pulmonary emboli, resolved with diuresis however SVETLANA therefore Lasix decreased eventually to 40 mg daily, continue to closely monitor. Will continue patient metoprolol, statin regimen, not on LAZARO inhibitor or ARB, continue Lasix with regimen decreased from twice daily to daily secondary to lower BPs. Most recent echocardiogram 2018 demonstrated EF 50%. 5. Chronic AF: We will continue patient home metoprolol regimen, holding diltiazem given lower BPs, Eliquis held secondary to patient's presentation #1 last dose 02/07/2020. 6. Diabetes mellitus type II: Hemoglobin A1c 5.9%, hold oral home regimen, continue home insulin regimen, ADA diet, accu checks w/ ISS. 7. Hypertension: Continue home regimen including metoprolol, Lasix although decreased to daily dose, holding diltiazem with further hold parameters pending levels with noted low normal BPs during presentation likely secondary to #1, as needed IV hydralazine. 8. Hyperlipidemia: Continue home statin regimen. 9. Hypothyroidism: Continue home synthroid regimen. 10. Morbid Obesity: Weight loss and lifestyle changes encouraged. 11. Pulmonary arterial hypertension: Continued on diuresis although regimen decreased given SVETLANA, encourage continued outpatient follow-up. 12. Chronic COPD: Patient not on chronic inhalers, prior history of tobacco use, encouraged continued cessation, as needed DuoNeb therapy. 13. JASMIN: Continue BiPAP nightly. 14. GERD: Continued on famotidine. 15. DVT prophylaxis: SCD to right lower extremity only given left lower extremity hematoma and VAC status post OR, defer any chemoprophylaxis given acute presentation as noted #1. 16. CODE STATUS: Full Code. Inpatient E&M: 36172 Subs Hosp L2
[2020-02-17] MEDS: Gabapentin 300 MG Capsule PO ×3 (08:07→17:31)
[2020-02-17] MEDS: Famotidine 20 MG Tablet PO ×2 (08:07→20:47)
[2020-02-17] MEDS: Docusate Sodium 100 MG Capsule PO ×2 (08:07→20:46)
[2020-02-17] MEDS: Iron Polysaccharide Complex 150 MG CAPSULE PO (08:07)
[2020-02-17] MEDS: FLUoxetine 20 MG Capsule 60 MG PO (08:08)
[2020-02-17 08:10] LABS: Absolute Lymphocyte Count 1.14 X10^3/uL (0.83-4.51); Absolute Neutrophil Count 4.5 X10^3/uL (2.0-7.7); Basophil# 0.04 X10^3/uL; Basophil% 0.6 % (0-1); Eosinophil# 0.22 X10^3/uL; Eosinophils% 3.3 % (0-5); Hematocrit 24.4 % (37-47); Hemoglobin 7.3 g/dL (12.0-15.0); Lymphocyte # 1.14 X10^3/ul (4.0); Mean Corp Hgb Conc 29.9 g/dL (32-36); Mean Corpuscular Hgb 27.9 pg (27.0-32.0); Mean Corpuscular Volume 93.1 fL (81-99); Mean Platelet Vol. 11.3 fl (6.2-12.0); NRBC Flagged by Analyzer 0 % (0-5); Neutrophil # 4.45 X10^3/uL (2.7-7.7); Neutrophil % 66.5 % (47-70); Platelet Count 221 K/mm3 (150-450); RBC Distribution Width CV 15.1 % (11.6-14.6); RBC Distribution Width SD 51.3 fl (35.1-43.9); Red Blood Count 2.62 M/mm3 (4.2-5.4); White Blood Count 6.7 K/mm3 (4.4-11.0)
[2020-02-17] MEDS: Furosemide 40 MG Tablet PO (08:14)
[2020-02-17 08:16] LABS: Bedside Glucose 90 mg/dL (70-110)
--- NOTE | 2020-02-17 08:57 | CASEMGMT ---
DEBBIE received a voice mail from Jasmyne at [facility]. They can accept patient. She asked if she should start pre-cert. DEBBIE received a call from Maty at [facility]. She said she agrees with [facility] level of care for patient. DEBBIE called [facility] and left a message for Jasmyne letting her know that she can start the pre-cert. Patient will also need another COVID test as it must be within 72 hours of d/c per [place] regulations. Plan: [facility] [place] pending COVID test and insurance approval. Paradise GARCIA MSW
[2020-02-17] MEDS: Metoprolol Tartrate 50 MG Tablet PO ×2 (10:01→20:47)
[2020-02-17] MEDS: 0.9% Saline Lock 10 ML Syringe IV (10:08)
[2020-02-17] MEDS: oxyCODONE 5 MG Tablet 10 MG PO ×2 (10:17→20:46)
--- NOTE | 2020-02-17 11:28 | PCM.PN.SRG ---
Patient Problems: Active and Suspected Problems (Last Reviewed 02/10/20 @ 16:[address] Benedicto Davis MD) Skin necrosis (Acute) Hematoma of left lower leg (Acute) Subjective: post op #4 Patient sitting up in chair - Physical Exam Vitals/I&O's: Vital Signs Temp Pulse Resp BP Pulse Ox 97.8 F 79 17 97/59 L 93 02/17/20 08:00 02/17/20 10:01 02/17/20 08:00 02/17/20 10:01 02/17/20 09:18 Oxygen Flow Rate (L/min) 2 Oxygen Delivery Method Nasal Cannula Weight: 330 lb 2.981 oz Body Mass Index (BMI) 51.7 Finger Stick Blood Glucose 155 Intake and Output for Last 24 Hours 02/15/20 02/16/20 02/17/20 23:59 23:59 23:59 Intake Total 1575 / 1825 1900.0 / 2300.0 600 / 600 Output Total 1950 / 1950 1150 / 1450 550 / 550 Balance -375 / -125 750.0 / 850.0 50 / 50 General: Alert, Cooperative, No apparent distress HEENT: Atraumatic Oral: Moist Mucosa Lungs: Normal air movement Cardiovascular: Regular rate Abdomen: Obese Extremities: Capillary Refill Less than 3 Seconds, Edema, Peripheral Pulses Normal, Tenderness Skin: Ulcer/ Wound - Left medial leg ulcer with no active bleeding. VAC dressing intact. Musculoskeletal: Tenderness Neurological: Cranial nerves II-XII grossly intact Psych/Mental Status: Normal Affect Microbiology Past 72 Hours 02/13/20 Unknown Tissue - Leg, Left Gram Stain - Final 02/13/20 Unknown Tissue - Leg, Left Wound Culture - Final Proteus mirabilis 02/13/20 Unknown Tissue - Leg, Left Anaerobic Culture - Final No anaerobic bacteria isolated. Laboratory Results 02/16/20 11:44: POC Glucose 103 02/16/20 16:37: POC Glucose 79 02/17/20 07:47: WBC 6.7, RBC 2.62 L, Hgb 7.3 L, Hct 24.4 L, MCV 93.1, MCH 27.9, MCHC 29.9 L, RDW Std Deviation 51.3 H, RDW Coeff of Shannan 15.1 H, Plt Count 221, MPV 11.3, Immature Gran % (Auto) 0.600, Neut % (Auto) 66.5, Lymph % (Auto) 17.0 L, Patrick % (Auto) 12.0 H, Eos % (Auto) 3.3, Baso % (Auto) 0.6, Absolute Neuts (auto) 4.5, Absolute Lymphs (auto) 1.14, Nucleated RBC % 0 02/17/20 07:58: POC Glucose 90 Current Medications Acetaminophen (Acetaminophen 325 Mg Tablet) 650 mg PO Q4H PRN PRN PRN Reason: fever, pain 1-10 Last Admin: 02/15/20 15:34 Dose: 650 mg Documented by: Albuterol/Ipratropium (Ipratropium/Albuterol Sulfate 3 Ml Ampul.Neb) 3 ml INHALATION Q4H.RT [facility] Last Admin: 02/16/20 19:44 Dose: 3 ml Documented by: Atorvastatin Calcium (Atorvastatin Calcium 40 Mg Tablet) 40 mg PO QHS [facility] Last Admin: 02/16/20 22:23 Dose: 40 mg Documented by: Diazepam (Diazepam 5 Mg Tablet) 5 mg PO 4X/DAY PRN PRN PRN Reason: SPASMS Docusate Sodium (Docusate Sodium 100 Mg Capsule) 100 mg PO BID [facility] Last Admin: 02/17/20 08:07 Dose: 100 mg Documented by: Doxepin HCl (Doxepin Hcl 50 Mg Capsule) 50 mg PO QHS [facility] Last Admin: 02/16/20 22:24 Dose: 50 mg Documented by: Famotidine (Famotidine 20 Mg Tablet) 20 mg PO BID [facility] Last Admin: 02/17/20 08:07 Dose: 20 mg Documented by: Fluoxetine HCl (Fluoxetine 20 Mg Capsule) 60 mg PO DAILY [facility] Last Admin: 02/17/20 08:08 Dose: 60 mg Documented by: Furosemide (Furosemide 40 Mg Tablet) 40 mg PO DAILY [facility] Last Admin: 02/17/20 08:14 Dose: 40 mg Documented by: Gabapentin (Gabapentin 300 Mg Capsule) 300 mg PO TIDCM [facility] Last Admin: 02/17/20 08:07 Dose: 300 mg Documented by: Hydromorphone HCl (Hydromorphone 1 Mg/Ml Syringe) 1 mg IV Q4H PRN PRN PRN Reason: Pain Score 6-10 Last Admin: 02/15/20 11:14 Dose: 1 mg Documented by: Sodium Chloride () 250 mls @ 15 mls/hr IV .[id number] PRN PRN Reason: Saline Flush Last Infusion: 02/13/20 19:14 Dose: Infused Documented by: Sodium Chloride () 250 mls @ 15 mls/hr IV .[id number] PRN PRN Reason: Additional IVPB Infusion Last Infusion: 02/16/20 18:25 Dose: Infused Documented by: Ceftriaxone Sodium 2 gm/ (Sodium Chloride) 50 mls @ 100 mls/hr IV Q24 [facility] Last Admin: 02/17/20 10:01 Dose: 100 mls/hr Documented by: Levothyroxine Sodium (Levothyroxine 75 Mcg Tablet) 75 mcg PO DAILY@0600 [facility] Last Admin: 02/17/20 06:10 Dose: 75 mcg Documented by: Metoprolol Tartrate (Metoprolol Tartrate 50 Mg Tablet) 50 mg PO BID [facility] Last Admin: 02/17/20 10:01 Dose: 50 mg Documented by: Nutritional Formula (Nutritional Supplement (Pedro Pablo) Packet) [facility] Last Admin: 02/17/20 08:07 Dose: 1 packet Documented by: Ondansetron HCl (Ondansetron 4 Mg/2 Ml Vial) 4 mg IV Q6H PRN PRN PRN Reason: NAUSEA Oxycodone HCl (Oxycodone 5 Mg Tablet) 10 mg PO Q4H PRN PRN PRN Reason: Pain Score 4-5 Last Admin: 02/17/20 10:17 Dose: 10 mg Documented by: Polysaccharide Iron Complex (Iron Polysaccharide Complex 150 Mg Capsule) [facility] Last Admin: 02/17/20 08:07 Dose: 150 mg Documented by: Promethazine HCl (Promethazine 25 Mg Tablet) 25 mg PO Q4H PRN PRN PRN Reason: NAUSEA/VOMITING Simethicone (Simethicone 80 Mg Tablet) 80 mg PO TIDPC [facility] Last Admin: 02/17/20 08:07 Dose: 80 mg Documented by: Sodium Chloride (0.9% Saline Lock 10 Ml Syringe) 10 - 40 ml IV UD PRN PRN Reason: SALINE FLUSH Last Admin: 02/17/20 10:08 Dose: 30 ml Documented by: Medical Necessity - Tobacco Use Smoking Status: Former smoker Assessment/Plan All Active Problems (Last Reviewed 11/03/20 @ 16:[address] Benedicto Davis MD) Open wound of left lower leg with complication (Acute) Acute blood loss anemia (Acute) Skin necrosis (Acute) Hematoma of left lower leg (Acute) Frequent falls (Acute) Bronchitis (Resolved) Cellulitis (Resolved) Chest pain (Resolved) Dyspnea (Resolved) Hematoma of leg (Resolved) Open wound of right lower leg (Resolved) Pneumonia (Resolved) Pulmonary edema (Resolved) Secondary pulmonary arterial hypertension (Resolved) Sepsis (Resolved) ASSESSMENT 1. Traumatic painful hematoma left medial leg with overlying skin compromise and some necrosis. 2. Open surgical hematoma wound left medial leg. 3. snf use of anticoagulants - Eliquis. 4. Frequent falls. 5. History of MRSA. 5. Acute blood loss anemia from traumatic hematoma. 7. Hypopotassiumemia. PLAN Her CTA was negative for pulmonary embolism. She is on on Ceftriaxone for operative culture shows Proteus mirabilis. Easier to administer as outpatient as it is only once per day. Hematoma wound is stable. No active bleeding seen. No clinical evidence of persistent infection. VAC applied yesterday. Patient states she is tolerating the VAC well. After discharge, [facility]. If there is a plateau in the healing process, can proceed with delayed closure with skin grafting. Patient's Hgb decreased to 7.3 from 7.6. She received PRBC. She has acute blood loss anemia from the traumatic hematoma. Will recheck the Hgb daily. Continue Iron supplementation. Potassium improving. It is at 4.0 yesterday. Continue supplementation. Prealbumin was 6.4. Encourage nutritional supplementation with protein to help the healing process. In the process of getting precert for SNF.
--- NOTE | 2020-02-17 11:32 | PCM.HP.ID ---
Problem List (1) Skin necrosis Status: Acute (2) Hematoma of left lower leg Status: Acute Reason for Consult: infected hematoma Consulted by: Dr. Carver History of Present Illness: The patient is a 54 year old F with fall 02/05, went to ED 02/06 for pain/redness/swelling in L calf. Given doxy and keflex, sent home. Had worsening sx, some chills. Came back, CT showed large hematoma. Taken to OR 02/[address] Davis for evacuation of large infected hematoma, no deeper necrosis seen. On ceftriaxone. Feeling better, discharge planned. Full ROS performed and neg except as noted above. - Medical History Past Medical History (Chronic Problems): Chronic Problems (Last Reviewed 02/10/20 @ 16:[address] Benedicto Davis MD) H/O methicillin resistant Staphylococcus aureus (Chronic) care home (current) use of anticoagulants (Chronic) Eliquis JASMIN (obstructive sleep apnea) (Chronic) Bipap 01/10 Chronic atrial fibrillation (Chronic) Chronic diastolic (congestive) heart failure (Chronic) Essential (primary) hypertension (Chronic) Allergies/Adverse Reactions: Allergies No Known Allergies Allergy (Verified 02/10/20 14:44) Home Medications: Ambulatory Orders Medication Instructions Recorded Metoprolol Tartrate [Lopressor 50 mg PO BID 05/16/16 (beta miriam)] Apixaban [Eliquis] 5 mg PO BID #0 tab 05/23/16 diltiazem HCl 180 mg capsule,24 180 mg PO DAILY #90 cap 03/17/19 hr,extended release Atorvastatin Calcium 40 mg PO QHS 04/24/19 Doxepin HCl 50 mg PO QHS 04/24/19 Gabapentin [Neurontin] 300 mg PO TID 04/24/19 Levothyroxine Sodium [Synthroid] 75 mcg PO DAILY 04/24/19 furosemide 40 mg tablet 40 mg PO BID #180 tab 06/02/19 potassium chloride 20 mEq 20 meq PO BID #180 tab 06/27/19 tablet,extended release(part/cryst) oxaprozin 600 mg tablet 300 mg PO BID 30 Days #30 tab 07/11/19 - Social History SMOKING STATUS:: Former smoker Vital Signs Temp Pulse Resp BP Pulse Ox 97.8 F 79 17 97/59 L 93 02/17/20 08:00 02/17/20 10:01 02/17/20 08:00 02/17/20 10:01 02/17/20 09:18 Oxygen Flow Rate (L/min) 2 Oxygen Delivery Method Nasal Cannula Weight: 149.77 kg Body Mass Index (BMI) 51.7 Finger Stick Blood Glucose 155 Microbiology Past 72 Hours 02/13/20 Unknown Gram Stain - Final Tissue - Leg, Left Wound Culture - Final Proteus mirabilis Anaerobic Culture - Final No anaerobic bacteria isolated. Laboratory Tests Past 24 Hrs 02/17/20 07:47 WBC 6.7 RBC 2.62 L Hgb 7.3 L Hct 24.4 L MCV 93.1 MCH 27.9 MCHC 29.9 L RDW Std Deviation 51.3 H RDW Coeff of Shannan 15.1 H Plt Count 221 MPV 11.3 Immature Gran % (Auto) 0.600 Neut % (Auto) 66.5 Lymph % (Auto) 17.0 L [place] % (Auto) 12.0 H Eos % (Auto) 3.3 Baso % (Auto) 0.6 Absolute Neuts (auto) 4.5 Absolute Lymphs (auto) 1.14 Nucleated RBC % 0 - Other Studies Radiology: [] reviewed Other Studies: [] Route of nutrition/ use of supplements: [] Nutritional Intake: [] IV Site: [] Kay Catheter: [] - Physical Exam General: Alert, Oriented x3, Cooperative, No apparent distress HEENT: Atraumatic, PERRLA, EOMI Neck: Supple, No Nodes Lungs: Clear to auscultation, Normal air movement Cardiovascular: Regular rate, Regular Rhythm Abdomen: Soft, Non Tender, Non-Distended, Obese Extremities: Edema Skin: Ulcer/ Wound - reviewed photo IV Site: Peripheral, without redness Musculoskeletal: No Tenderness to Palpation of Joints or Extremities Neurological: Cranial nerves II-XII grossly intact - Assessment/Plan Antibiotics: [] Assessment/Plan: [] L calf infected hematoma - now s/p I&D 02/13/[address] Davis, surg cx with proteus. With good source control, ok for discharge to ECF on 5 more days of keflex 500mg bid. Will follow as needed, thank you, d/w Dr. Carver
[2020-02-17 11:51] LABS: Bedside Glucose 110 mg/dL (70-110)
--- NOTE | 2020-02-17 12:08 | NURSING ---
Pt states she is planning on going home now instead of a [facility]. according to therapy notes, pt was not able to walk far. pt is currently in chair. did discuss with Dr Davis. states he will talk to her later today.
[2020-02-17] MEDS: Ipratropium/Albuterol Sulfate 3 ML AMPUL.NEB INHALATION ×3 (15:26→23:17)
--- NOTE | 2020-02-17 16:17 | CASEMGMT ---
Per Ingrid ARNOLD, pt is agreeable to SNF at this time. Farzaneh ARNOLD CM
[2020-02-17 17:46] LABS: Bedside Glucose 135 mg/dL (70-110)
[2020-02-17] MEDS: DOXEPIN HCL 50 MG CAPSULE PO (20:46)
[2020-02-17] MEDS: Atorvastatin Calcium 40 MG Tablet PO (20:47)
[2020-02-17 23:05] LABS: Bedside Glucose 130 mg/dL (70-110)
[2020-02-18] VITALS (7 sets, daily range): BP systolic 90–120; BP diastolic 54–63; PULSE 64–83; RESP 17–20; TEMP 36.8–37.1; O2SAT 93–99
[2020-02-18 06:01] LABS: Absolute Lymphocyte Count 1.17 X10^3/uL (0.83-4.51); Basophil# 0.04 X10^3/uL; Basophil% 0.6 % (0-1); Eosinophil# 0.22 X10^3/uL; Hematocrit 24.9 % (37-47); Hemoglobin 7.4 g/dL (12.0-15.0); Lymphocyte # 1.17 X10^3/ul (4.0); Lymphocyte % 16.1 % (19-41); Mean Corp Hgb Conc 29.7 g/dL (32-36); Mean Corpuscular Hgb 27.9 pg (27.0-32.0); Mean Platelet Vol. 11.2 fl (6.2-12.0); Monocyte# 0.82 X10^3/uL; Monocyte% 11.3 % (0-10); NRBC Flagged by Analyzer 0 % (0-5); Neutrophil # 4.95 X10^3/uL (2.7-7.7); Platelet Count 237 K/mm3 (150-450); RBC Distribution Width CV 15.2 % (11.6-14.6); RBC Distribution Width SD 51.9 fl (35.1-43.9); Red Blood Count 2.65 M/mm3 (4.2-5.4); White Blood Count 7.3 K/mm3 (4.4-11.0)
[2020-02-18 06:25] LABS: ALB/GLOB Ratio 0.5 RATIO (0.9-2.4); AST(SGOT) 12 U/L (15-37); Alanine Aminotransfer ALT/SGPT 9 U/L (13-56); Albumin, Serum 2.1 g/dL (3.2-5.0); Alkaline Phosphatase 88 U/L (45-117); Anion Gap 6 (5-15); BUN 31 mg/dL (7-18); BUN/Creat Ratio 26.5 RATIO (10-20); Calcium,Total 8.6 mg/dL (8.5-10.1); Chloride 97 mmol/L (98-107); Creatinine, Serum 1.17 mg/dL (0.55-1.02); EST Glomerular Filtration Rate 51 mL/min (>60); Est Glom Filt Rate - Afr Amer 62 mL/min (>60); Estimated Creatinine Clearance 52.83 ml/min; Globulin 4.2 g/dL (2.2-4.2); Glucose 103 mg/dL (74-106); Potassium 4.1 mmol/L (3.5-5.1); Protein, Total 6.3 g/dL (6.4-8.2); Sodium Level 135 mmol/L (136-145)
[2020-02-18] MEDS: oxyCODONE 5 MG Tablet 10 MG PO ×2 (06:40→12:33)
[2020-02-18] MEDS: Levothyroxine 75 MCG Tablet PO (06:40)
[2020-02-18 06:50] LABS: Bedside Glucose 91 mg/dL (70-110)
[2020-02-18] MEDS: Ipratropium/Albuterol Sulfate 3 ML AMPUL.NEB INHALATION ×2 (06:55→10:44)
[2020-02-18] MEDS: FLUoxetine 20 MG Capsule 60 MG PO (08:42)
[2020-02-18] MEDS: Furosemide 40 MG Tablet PO (08:42)
[2020-02-18] MEDS: Iron Polysaccharide Complex 150 MG CAPSULE PO (08:42)
[2020-02-18] MEDS: Gabapentin 300 MG Capsule PO ×2 (08:42→12:27)
[2020-02-18] MEDS: Famotidine 20 MG Tablet PO (08:42)
[2020-02-18] MEDS: Metoprolol Tartrate 50 MG Tablet PO (08:43)
[2020-02-18] MEDS: Acetaminophen 325 MG Tablet 650 MG PO (08:50)
[2020-02-18] MEDS: Docusate Sodium 100 MG Capsule PO (08:50)
--- NOTE | 2020-02-18 10:03 | CASEMGMT ---
DEBBIE received a call from Jasmyne at [facility] and she received approval for patient. DEBBIE notified physician via cortext and patient as well. Await orders. Paradise GARCIA MSW
[2020-02-18] MEDS: 0.9% Saline Lock 10 ML Syringe IV (10:20)
[2020-02-18 11:30] LABS: Bedside Glucose 124 mg/dL (70-110)
--- NOTE | 2020-02-18 11:56 | TREXTCA.CO_ITS ---
- Diet 02/16/20 11:01 Diet: Cardiac: Calorie-Controlled Dietary Modifications:: Consistent Carbohydrate Sodium Restricted Is pt able to select menu?: Yes How many daily calories?: 1999 calorie - Routine Orders/Code Status Enema Type: Fleetz Enema Frequency: Daily PRN Suppository Type: Dulcolax 10mg Suppository Frequency: Daily PRN O2 Liters per Minute: 2 O2 Frequency: Continuous Keep PO Greater than or Equal to (%): 90 Routine Lab Work: CBC, BMP, - - Daily X3 days, then Q Week - Wound(s) LLE Wound Type: Open Surgical Wound Dressing Change: Wet to Dry Dressing - Suggestions for Active Care Change Position every (hours): 2 Times a day to sit in chair: 3 - Therapies Physical Therapy: Eval and Treat Occupational Therapy: Eval and Treat - Problem/Diagnosis (1) Hematoma of left lower leg Status: Acute (2) Acute blood loss anemia Status: Acute (3) Open wound of left lower leg with complication Status: Acute (4) Chronic atrial fibrillation Status: Chronic (5) Chronic diastolic (congestive) heart failure Status: Chronic (6) Essential (primary) hypertension Status: Chronic (7) JASMIN (obstructive sleep apnea) Status: Chronic Comment: Bipap 01/10 - Allergies/Procedures Done in Hospital Allergies/Adverse Reactions: Allergies No Known Allergies Allergy (Verified 02/10/20 14:44) Procedures: - - Incision and drainage and evacuation traumatic painful infected necrotic hematoma left medial leg and excisional debridement overlying, my skin with necrosis. - Type of Care/Length of Stay Estimated LOS: Convalescent Care Less Than 30 days Type of Care Needed: Skilled Rehab Potential: Fair Prognosis: Fair - Additional Orders/Day of Discharge Additional Orders: Left medial leg wound VAC applied 02/16/2020 at 150 mmHg continuous suction. Dressing changes 3 times per week. H&P will serve as current which was dated: 02/10/20 Day of Discharge: 02/18/20 - Dietary and Speech Recommendations Dietitian Recommendations/Changes: Will change diet to 2000 calorie/carb- controlled; Cardiac/sodium-restricted with FR as needed. Will order Pedro Pablo BID f or wound healing. - Follow Up Care Primary Care Physician: Nabor Garcia Chi, MD [Primary Care Provider] - Please follow up with your Primary Care Physician in: 1 Week Please Follow Up With: Clinic,Wound When: 1 week
--- NOTE | 2020-02-18 12:03 | DS.PCM_ITS ---
Discharge Date and Diagnosis - Problem List Patient Problems: Active and Suspected Problems (Last Reviewed 02/10/20 @ 16:[address] Benedicto Davis MD) Open wound of left lower leg with complication (Acute) Acute blood loss anemia (Acute) Skin necrosis (Acute) Hematoma of left lower leg (Acute) Date of Admission: 02/10/20 Date of Discharge: 02/18/20 - Primary Discharge Diagnosis Acute Problems: Active Problems (Last Reviewed 02/10/20 @ 16:[address] Benedicto Davis MD) 1. Proteus infected left calf hematoma secondary to mechanical fall-status post surgical I&D and evacuation of traumatic infected necrotic hematoma and exc isional debridement of compromised skin with necrosis 02/13/2020 2. Acute blood loss anemia secondary to #1 on chronic anemia 3. Acute kidney injury on chronic kidney disease stage III 4. Acute on chronic toxic respiratory failure secondary to acute on chronic diastolic CHF 5. Chronic atrial fibrillation 6. Type 2 diabetes mellitus 7. Hypertension 8. Hyperlipidemia 9. Hypothyroidism 10. Morbid obesity 11. Pulmonary arterial hypertension 12. Chronic COPD 13. JASMIN 14. GERD - Secondary Discharge Diagnosis Chronic Problems: Chronic Problems (Last Reviewed 02/10/20 @ 16:[address] 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 Electronically Signed: Zurdo Dewey MD at 17:37 EST , Service support , Chest CTA 02/12/20 12:42 IMPRESSION: No evidence of pleural embolism. Mild degree of increased markings at the right lung base as well as ground glass appearance in the right upper lobe. Electronically Signed: Fernie Luna, at 14:51 EST , Service support , Consultations 02/13/20 02:10 Consult: Onc/Wound/certified social workers in health care Routine Comment: Reason for Consult:: hematoma/anticipated wound vac. Dr. Dhillon- ID Dr. Davis- plastics Operations: - - Incision and drainage and evacuation traumatic painful infected necrotic hematoma left medial leg and excisional debridement overlying, my skin with necrosis. Procedures: None Summary of Care Provided: The patient is a 54 year old F admitted 02/10/2020 due to left medial leg hematoma. 1. Proteus infected left calf hematoma secondary to mechanical fall-status post surgical I&D and evacuation of traumatic infected necrotic hematoma and excisional debridement of compromised skin with necrosis 02/13/2020. Wound VAC placed 02/16/2020. IV Rocephin during admission. Transition to Keflex at discharge to complete course. Follow-up with wound center in 1 week. 2. Acute blood loss anemia secondary to #1 on chronic anemia-status post 6 units PRBC. Hemoglobin now stable. Trend CBC at [facility]. 3. Acute kidney injury on chronic kidney disease stage III-stable, trend BMP at [facility]. 4. Acute on chronic toxic respiratory failure secondary to acute on chronic diastolic CHF-echo 2017 demonstrated a preserved EF, 50%. Lasix reduced to 40 mg daily. Suspect fluid overload related to PRBC administration as a result of #1/#2. 5. Chronic atrial fibrillation-continue metoprolol, Cardizem. Eliquis on hold secondary to #1. 6. Type 2 diabetes mellitus-hemoglobin A1c 5.9%. Continue home oral regimen. 7. Hypertension-continue metoprolol, Cardizem with hold parameters. Lasix reduced to 40 mg daily due to low blood pressure. 8. Hyperlipidemia-continue statin. 9. Hypothyroidism-continue Synthroid. 10. Morbid obesity-encouraged diet lifestyle modifications. 11. Pulmonary arterial hypertension 12. Chronic COPD-as needed albuterol aerosol. 13. JASMIN-continue home BiPAP regimen. 14. GERD- continue famotidine. Patient seen and examined prior to discharge. Physical assessment as noted below. Patient is stable for discharge with follow up recommendations as noted above. This patient was seen by MOSES Crespo under the supervision of Dr. Carver. Patient Problems: Active and Suspected Problems (Last Reviewed 02/10/20 @ 16:[address] Benedicto Davis MD) Open wound of left lower leg with complication (Acute) Acute blood loss anemia (Acute) Skin necrosis (Acute) Hematoma of left lower leg (Acute) - Physical Exam Vitals/I&O's: Vital Signs Temp Pulse Resp BP Pulse Ox 98.2 F 82 20 H 95/54 L 93 02/18/20 08:35 02/18/20 10:46 02/18/20 10:46 02/18/20 08:43 02/18/20 10:46 Oxygen Flow Rate (L/min) 2 Oxygen Delivery Method Nasal Cannula Weight: 330 lb 2.981 oz Body Mass Index (BMI) 51.7 Finger Stick Blood Glucose 155 Intake and Output for Last 24 Hours 02/16/20 02/17/20 02/18/20 23:59 23:59 23:59 Intake Total 1900.0 / 2300.0 1439.75 / 1439.75 50 / 50 Output Total 1150 / 1450 1500 / 1750 750 / 750 Balance 750.0 / 850.0 -60.25 / -310.25 -700 / -700 General: Alert, Oriented x3, Cooperative HEENT: Atraumatic, PERRLA, EOMI, Normocephalic Neck: Supple, No JVD, Negative Carotid Bruits Lungs: Clear to auscultation, Diminished Cardiovascular: - - Atrial fibrillation, rate controlled Abdomen: Bowel Sounds Present, Soft, Non Tender, Non-Distended, Obese Extremities: No clubbing, No cyanosis Skin: - - Left medial leg wound, wound VAC in place. Musculoskeletal: No Tenderness to Palpation of Joints or Extremities Neurological: Cranial nerves II-XII grossly intact, Neuro grossly intact Psych/Mental Status: Normal Affect, Appropriate Microbiology Past 72 Hours 02/13/20 Unknown Tissue - Leg, Left Gram Stain - Final 02/13/20 Unknown Tissue - Leg, Left Wound Culture - Final Proteus mirabilis 02/13/20 Unknown Tissue - Leg, Left Anaerobic Culture - Final No anaerobic bacteria isolated. Laboratory Results 02/17/20 17:26: POC Glucose 135 H 02/17/20 19:30: COVID-19 (MARICHUY) Not Detected 02/17/20 21:40: POC Glucose 130 H 02/18/20 05:43: WBC 7.3, RBC 2.65 L, Hgb 7.4 L, Hct 24.9 L, MCV 94.0, MCH 27.9, MCHC 29.7 L, RDW Std Deviation 51.9 H, RDW Coeff of Shannan 15.2 H, Plt Count 237, MPV 11.2, Immature Gran % (Auto) 1.000 H, Neut % (Auto) 68.0, Lymph % (Auto) 16.1 L, Grant % (Auto) 11.3 H, Eos % (Auto) 3.0, Baso % (Auto) 0.6, Absolute Neuts (auto) 5.0, Absolute Lymphs (auto) 1.17, Nucleated RBC % 0 02/18/20 05:43: Sodium 135 L, Potassium 4.1, Chloride 97 L, Carbon Dioxide 32.0, Anion Gap 6, BUN 31 H, Creatinine 1.17 H, Estim Creat Clear Calc 52.83, Est GFR (MDRD) Af Amer 62, Est GFR (MDRD) Non-Af 51 L, BUN/Creatinine Ratio 26.5 H, Glucose 103, Calcium 8.6, Total Bilirubin 0.40, AST 12 L, ALT 9 L, Alkaline Phosphatase 88, Total Protein 6.3 L, Albumin 2.1 L, Globulin 4.2, Albumi n/Globulin Ratio 0.5 L 02/18/20 06:37: POC Glucose 91 02/18/20 11:22: POC Glucose 124 H Current Medications Acetaminophen (Acetaminophen 325 Mg Tablet) 650 mg PO Q4H PRN PRN PRN Reason: fever, pain 1-10 Last Admin: 02/18/20 08:50 Dose: 650 mg Documented by: Albuterol/Ipratropium (Ipratropium/Albuterol Sulfate 3 Ml Ampul.Neb) 3 ml INHALATION Q4H.RT [facility] Last Admin: 02/18/20 10:44 Dose: 3 ml Documented by: Atorvastatin Calcium (Atorvastatin Calcium 40 Mg Tablet) 40 mg PO QHS [facility] Last Admin: 02/17/20 20:47 Dose: 40 mg Documented by: Diazepam (Diazepam 5 Mg Tablet) 5 mg PO 4X/DAY PRN PRN PRN Reason: SPASMS Docusate Sodium (Docusate Sodium 100 Mg Capsule) 100 mg PO BID [facility] Last Admin: 02/18/20 08:50 Dose: 100 mg Documented by: Doxepin HCl (Doxepin Hcl 50 Mg Capsule) 50 mg PO QHS [facility] Last Admin: 02/17/20 20:46 Dose: 50 mg Documented by: Famotidine (Famotidine 20 Mg Tablet) 20 mg PO BID [facility] Last Admin: 02/18/20 08:42 Dose: 20 mg Documented by: Fluoxetine HCl (Fluoxetine 20 Mg Capsule) 60 mg PO DAILY [facility] Last Admin: 02/18/20 08:42 Dose: 60 mg Documented by: Furosemide (Furosemide 40 Mg Tablet) 40 mg PO DAILY [facility] Last Admin: 02/18/20 08:42 Dose: 40 mg Documented by: Gabapentin (Gabapentin 300 Mg Capsule) 300 mg PO TIDCM [facility] Last Admin: 02/18/20 08:42 Dose: 300 mg Documented by: Hydromorphone HCl (Hydromorphone 1 Mg/Ml Syringe) 1 mg IV Q4H PRN PRN PRN Reason: Pain Score 6-10 Last Admin: 02/15/20 11:14 Dose: 1 mg Documented by: Sodium Chloride () 250 mls @ 15 mls/hr IV .[id number] PRN PRN Reason: Saline Flush Last Infusion: 02/17/20 11:54 Dose: 0 mls/hr Documented by: Sodium Chloride () 250 mls @ 15 mls/hr IV .[id number] PRN PRN Reason: Additional IVPB Infusion Last Infusion: 02/16/20 18:25 Dose: Infused Documented by: Ceftriaxone Sodium 2 gm/ (Sodium Chloride) 50 mls @ 100 mls/hr IV Q24 [facility] Last Infusion: 02/18/20 10:52 Dose: Infused Documented by: Levothyroxine Sodium (Levothyroxine 75 Mcg Tablet) 75 mcg PO DAILY@0600 [facility] Last Admin: 02/18/20 06:40 Dose: 75 mcg Documented by: Metoprolol Tartrate (Metoprolol Tartrate 50 Mg Tablet) 50 mg PO BID [facility] Last Admin: 02/18/20 08:43 Dose: 50 mg Documented by: Nutritional Formula (Nutritional Supplement (Pedro Pablo) Packet) 1 packet PO BIDCM [facility] Last Admin: 02/18/20 08:41 Dose: 1 packet Documented by: Ondansetron HCl (Ondansetron 4 Mg/2 Ml Vial) 4 mg IV Q6H PRN PRN PRN Reason: NAUSEA Oxycodone HCl (Oxycodone 5 Mg Tablet) 10 mg PO Q4H PRN PRN PRN Reason: Pain Score 4-5 Last Admin: 02/18/20 06:40 Dose: 10 mg Documented by: Polysaccharide Iron Complex (Iron Polysaccharide Complex 150 Mg Capsule) [facility] Last Admin: 02/18/20 08:42 Dose: 150 mg Documented by: Promethazine HCl (Promethazine 25 Mg Tablet) 25 mg PO Q4H PRN PRN PRN Reason: NAUSEA/VOMITING Simethicone (Simethicone 80 Mg Tablet) 80 mg PO TIDPC [facility] Last Admin: 02/18/20 08:42 Dose: 80 mg Documented by: Sodium Chloride (0.9% Saline Lock 10 Ml Syringe) 10 - 40 ml IV UD PRN PRN Reason: SALINE FLUSH Last Admin: 02/18/20 10:20 Dose: 20 ml Documented by: Home Medications: Medications to take at Discharge Metoprolol Tartrate [Lopressor (beta miriam)] 50 mg PO BID 05/16/16 diltiazem HCl 180 mg capsule,24 hr,extended release 180 mg PO DAILY #90 cap 03/17/19 Atorvastatin Calcium 40 mg PO QHS 04/24/19 Doxepin HCl 50 mg PO QHS 04/24/19 Gabapentin [Neurontin] 300 mg PO TID 04/24/19 Levothyroxine Sodium [Synthroid] 75 mcg PO DAILY 04/24/19 potassium chloride 20 mEq tablet,extended release(part/cryst) 20 meq PO BID #180 tab 06/27/19 oxaprozin 600 mg tablet 300 mg PO BID 30 Days #30 tab 07/11/19 Cephalexin [Keflex] 500 mg PO BID #10 cap 02/17/20 Fluoxetine [Prozac] 60 mg PO DAILY capsule 02/18/20 Furosemide [Lasix] 40 mg PO DAILY tablet 02/18/20 Iron Polysaccharide Complex [Ferrex 150] 150 mg PO DAILYCM capsule 02/18/20 Nutritional Supplement [Pedro Pablo - ORANGE FLAVOR] 1 packet PO BIDCM packet 02/18/20 Oxycodone [Oxyir] 10 mg PO Q4H PRN PRN 2 Days #10 tab 02/18/20 Following Prescriptions Were Given to Patient: Cephalexin [Keflex] 500 mg PO BID #10 cap Oxycodone [Oxyir] 10 mg PO Q4H PRN PRN 2 Days #10 tab PRN Reason: Pain Score 4-5 Prescription Printed Primary Care Physician: Nabor Garcia Chi, MD [Primary Care Provider] - Please follow up with your Primary Care Physician in: 1 Week Please Follow Up With: Clinic,Wound When: 1 week Disposition: [facility] facility Minutes spent on discharge:: 35 Patient Condition:: Stable Medical Necessity - Tobacco Use Smoking Status: Former smoker Meaningful Use Info Meaningful Use Diagnoses (Choose all that apply): CHF - CHF LAZARO/ARB ordered at discharge?: Yes Documented LVEF (%): 50
--- NOTE | 2020-02-18 12:22 | CASEMGMT ---
SW called [facility] and arranged for patient to get picked up at 2p via wheelchair van. DEBBIE notified traveling secretary, cupola charger insulation, patient, and Jasmyne at [facility]. SW completed convalescent on HENS. Plan: d/c to [facility] under skilled level of care on a convalescent stay. [facility] transported via wheelchair van. Paradise GARCIA MSW
--- NOTE | 2020-02-18 14:05 | PHA.DC.MR ---
Pharmacy Service has performed discharge medication reconciliation for this patient. The patient's discharge medication list was reviewed for discrepancies and discrepancies were resolved. Home Medications Metoprolol Tartrate [Lopressor (beta miriam)] 50 mg PO BID 05/16/16 diltiazem HCl 180 mg capsule,24 hr,extended release 180 mg PO DAILY #90 cap 03/17/19 Atorvastatin Calcium 40 mg PO QHS 04/24/19 Doxepin HCl 50 mg PO QHS 04/24/19 Gabapentin [Neurontin] 300 mg PO TID 04/24/19 Levothyroxine Sodium [Synthroid] 75 mcg PO DAILY 04/24/19 potassium chloride 20 mEq tablet,extended release(part/cryst) 20 meq PO BID #180 tab 06/27/19 oxaprozin 600 mg tablet 300 mg PO BID 30 Days #30 tab 07/11/19 Cephalexin [Keflex] 500 mg PO BID #10 cap 02/17/20 Fluoxetine [Prozac] 60 mg PO DAILY cap 02/18/20 Furosemide [Lasix] 40 mg PO DAILY tab 02/18/20 Iron Polysaccharide Complex [Ferrex 150] 150 mg PO DAILYCM cap 02/18/20 Nutritional Supplement [Pedro Pablo - ORANGE FLAVOR] 1 packet PO BIDCM packet 02/18/20 Oxycodone [Oxyir] 10 mg PO Q4H PRN PRN 2 Days #10 tab 02/18/20
== END 2020-02-18 14:18 | disposition skilled nursing facility (03) | DRG 570 ==
LOC: MS3 02-12 11:39 → PCU 02-12 12:18
PROVIDERS: Anesthesiology; Internal Medicine; Student in an Organized Health Care Education/Training Program; Admitting Provider Surgery; PCP Family Medicine Geriatric Medicine; Visit Provider Family Medicine
PROC: 0JBP0ZZ Excision of Left Lower Leg Subcutaneous Tissue and Fascia, Open Approach (ICD-10-PCS; principal; 2020-02-13 13:00)
DX: S80.12XA Contusion of left lower leg, initial encounter (principal); J96.21 Acute and chronic respiratory failure with hypoxia; I50.33 Acute on chronic diastolic (congestive) heart failure; I48.20 Chronic atrial fibrillation, unspecified; I50.32 Chronic diastolic (congestive) heart failure; Z68.43 Body mass index [BMI] 50.0-59.9, adult; D62 Acute posthemorrhagic anemia; J96.11 Chronic respiratory failure with hypoxia; E11.52 Type 2 diabetes mellitus with diabetic peripheral angiopathy with gangrene; I13.0 Hypertensive heart and chronic kidney disease with heart failure and stage 1 through stage 4 chronic kidney disease, or unspecified chronic kidney disease; E11.22 Type 2 diabetes mellitus with diabetic chronic kidney disease; N18.30 Chronic kidney disease, stage 3 unspecified; N17.9 Acute kidney failure, unspecified; T50.1X5A Adverse effect of loop [high-ceiling] diuretics, initial encounter; Y92.239 Unspecified place in hospital as the place of occurrence of the external cause; B96.4 Proteus (mirabilis) (morganii) as the cause of diseases classified elsewhere; E87.6 Hypokalemia; I27.21 Secondary pulmonary arterial hypertension; J44.9 Chronic obstructive pulmonary disease, unspecified; E78.5 Hyperlipidemia, unspecified; E03.9 Hypothyroidism, unspecified; D64.9 Anemia, unspecified; K21.9 Gastro-esophageal reflux disease without esophagitis; G47.33 Obstructive sleep apnea (adult) (pediatric); F32.9 Major depressive disorder, single episode, unspecified; F41.9 Anxiety disorder, unspecified; W01.10XA Fall on same level from slipping, tripping and stumbling with subsequent striking against unspecified object, initial encounter; Y93.9 Activity, unspecified; Y92.009 Unspecified place in unspecified non-institutional (private) residence as the place of occurrence of the external cause; Y99.9 Unspecified external cause status; E66.01 Morbid (severe) obesity due to excess calories; R29.6 Repeated falls; Z78.0 Asymptomatic menopausal state; Z79.01 Long term (current) use of anticoagulants; Z79.4 Long term (current) use of insulin; Z79.890 Hormone replacement therapy; Z79.899 Other long term (current) drug therapy; Z86.14 Personal history of Methicillin resistant Staphylococcus aureus infection; Z87.891 Personal history of nicotine dependence
CPT/HCPCS: 36415; 36600; 71275; 73700; 80048; 80053; 80202; 82803; 82962; 83036; 84134; 84484; 85014; 85018; 85025; 85027; 85610; 85730; 86850; 86900; 86901; 86920; 86922; 87070; 87075; 87077; 87102; 87176; 87186; 87205; 87206; 87426; 87635; 88304; 88305; 93005; 94002; 94003; 94640; 94660; 97110; 97162; 97166; 97530; 97535; J7040; J7050; J7120; P9016; Q9967; A4216; J0696; J1940; J2405; U0002; U0003

== ENCOUNTER 2020-02-26 15:19 | Emergency (ER) | payer MEDICARE, MEDICAID, SELFPAY ==
[2020-02-12 09:36] VITALS: BMI 51.7
[2020-02-26] VITALS (10 sets, daily range): BP systolic 90–114; BP diastolic 53–70; PULSE 59–76; RESP 16–20; TEMP 35.9–36.7; O2SAT 20–99; BMI 55.5
--- NOTE | 2020-02-26 15:48 | ED.RN ---
pt [id number]
--- NOTE | 2020-02-26 15:49 | ED.RN ---
pt arrived with wound vac that is almost full. called rivera jara our wound nurse, she states that we do not have the supplies. it can alarm for an hour or two then will need removed and a wet ton placed. vac is not currently alarming.
--- NOTE | 2020-02-26 15:50 | ED.VIS.GEN ---
History of Present Illness Chief Complaint: Abn Labs Detail of Chief Complaint: Anemia, hemoglobin 6.6 Informant: Patient Onset: Days Context: Gradual Onset Timing: Continuous Quality: 6.6 Location: Hematologic Current Severity: Mild Maximum Severity: Mild Worsened by: Nothing, chronic disease Relieved by: Nothing Associated Symptoms: Dyspnea with minimal movement Narrative: Patient is a 54-year-old woman who presents because of hemoglobin 6.6. She brought paperwork from outside facility that documents a hemoglobin of 6.6. Patient states she has shortness of breath with minimal movement. She does not ambulate because she has a wound VAC on. She is status post recent surgery. She denies fever, chills night sweats. She denies ocular, visual auditory symptoms. She denies upper respiratory symptoms. She denies GI symptoms. Specifically she denies black or maroon stool. She denies hematuria. She denies bruising easily. She denies bleeding from her wounds. 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 fib Surgical History: cholecystectomy, - - arthroscopic surgery on the knee, umbilical hernia repair. Debridement hematoma right leg in 2007. surgical preparation right anterior leg with incision and drainage and excisional debridement hematoma (380 cm2) - 05/17/16. Excisional debridement nonhealing hematoma ulcer right anterior leg with STSG reconstruction from lower anterior abdominal wall (126 cm2) - 09/21/16. Lives: Alone, Residential Smoking Status: Former smoker Alcohol: None Drugs: None - Family History Paternal Family History: Family History (Last Reviewed 02/10/20 @ 16:[address] Benedicto Davis MD) Father CAD (coronary artery disease) Pacemaker CHF (congestive heart failure) Diabetes Heart disease Hypertension High cholesterol COPD (chronic obstructive pulmonary disease) Brother Anxiety Diabetes Heart disease Hypertension High cholesterol Family History: Reports: Heart Disease - father at 64 YOA with an MT, Hypertension, Stroke Maternal Family History: Family History (Last Reviewed 02/10/20 @ 16:[address] Benedicto Davis MD) Father CAD (coronary artery disease) Pacemaker CHF (congestive heart failure) Diabetes Heart disease Hypertension High cholesterol COPD (chronic obstructive pulmonary disease) Brother Anxiety Diabetes Heart disease Hypertension High cholesterol Family History: Reports: Hypertension, Stroke Review of Systems General: Reports: Malaise. Denies: Chills, Fever, Subjective Eyes: Denies: Visual changes - bilaterally, Blurred Vision - bilaterally ENT: Denies: Rhinorrhea, Sore throat Cardiovascular: Denies: Chest pain Respiratory: Reports: Dyspnea, Dyspnea on exertion, Orthopnea - Chronic unchanged. Denies: Cough, Sputum, Paroxysmal nocturnal dyspnea Gastrointestinal: Denies: Abdominal pain, Nausea, Vomiting, Melena, Hematochezia Genitourinary: Denies: Hematuria Musculoskeletal: Reports: Swelling. Denies: Extremity Pain Skin: Reports: Wounds Endocrine: Denies: Polyuria, Polydipsia Hematologic: Reports: Easy bruising Physical Exam Vital Signs/Narrative: Vital Signs Temp Pulse Resp BP Pulse Ox 02/26/20 15:20 97.3 F L 60 18 114/67 97 Inital Vital Signs reviewed: Yes General: Well nourished, Well developed, Obese, No Acute Distress Head: Normocephalic, Atraumatic Eyes: Perrl, EOMI, Pale conjunctiva ENT: Moist mucous membranes, No rhinorrhea, TM's clear Neck: Supple, Nontender, No lymphadenopathy, No JVD Cardiovascular: Regular rhythm, No murmurs, Irregular Respiratory: No distress, CTA bilaterally, Chest nontender Abdomen: Soft, Nontender, Nondistended, Normal bowel sounds Extremities: - - VAC noted and functioning Skin: Pallor. Negative for: Cyanosis, Diaphoresis, Jaundice, Trauma Neurological: Alert, Oriented x3, Cranial nerves II-XII grossly intact, Normal Strength, Normal Sensation. Negative for: Normal Gait Psychological: Depressed Diagnostic/Tx/Re-eval - Medical Decision Making Likely patient has a low hemoglobin. Blood work indicates hemoglobin 6.6. Will transfuse 1 unit of blood. Most recent hemoglobin on record at [facility] is June 17 and was 7.4. ED Disposition - Plan for ED Patient: Disposition: Home or Assisted Living Diagnosis: Signs and symptoms of anemia Instructions: ED Anemia Type Not Specified, When You Need a Blood Transfusion (Adult) Referrals: Nabor Garcia Chi, MD [Primary Care Provider] - As Needed
[2020-02-26] MEDS: Acetaminophen 325 MG Tablet 650 MG PO (16:51)
--- NOTE | 2020-02-26 17:36 | ED.RN ---
DR DRAKE AWARE OF AUDIBLE UPPER AIRWAY WHEEZES. NO NEW ORDERS GIVEN.
--- NOTE | 2020-02-26 17:55 | ED.RN ---
PER DR DRAKE, DO NOT REMOVE THE WOUND VAC. THE PT IS GETTING BLOOD THEN GOING BACK. IT IS THEIR RESPONSIBLITY TO CHANGE IT.
[2020-02-27 00:19] VITALS: BP 98/78; PULSE 89; RESP 16; O2SAT 96
== END 2020-02-27 00:20 | disposition home or self-care (01) ==
PROVIDERS: Emergency Provider Emergency Medicine; PCP Family Medicine Geriatric Medicine
DX: D64.9 Anemia, unspecified (principal); I11.0 Hypertensive heart disease with heart failure; I50.32 Chronic diastolic (congestive) heart failure; I48.20 Chronic atrial fibrillation, unspecified; G47.33 Obstructive sleep apnea (adult) (pediatric); F32.9 Major depressive disorder, single episode, unspecified; E66.9 Obesity, unspecified; Z79.01 Long term (current) use of anticoagulants; Z79.899 Other long term (current) drug therapy; Z87.891 Personal history of nicotine dependence
CPT/HCPCS: 36430; 86850; 86900; 86901; 86920; 86922; 99285; J7050; P9016; A4216

== ENCOUNTER 2020-05-06 13:24 | Inpatient (IN) | payer MEDICARE, MEDICAID, SELFPAY ==
[2020-02-26 15:20] VITALS: BMI 55.5
[2020-05-06] VITALS (27 sets, daily range): BP systolic 83–111; BP diastolic 50–78; PULSE 62–83; RESP 12–25; TEMP 35.7–36.8; O2SAT 90–99; BMI 55.2; BMI 55.3; BMI 53.4
--- NOTE | 2020-05-06 13:34 | RAD_ITS ---
STUDY: X-RAY CHEST REASON FOR EXAM: Female, 54 years old. INCREASE SOB -- COVID + 12-5-20 TECHNIQUE: Single AP portable view of the chest. COMPARISON: Comparison is made with prior study dated 05/29/2019. FINDINGS: EKG electrodes are seen. Patchy infiltrate is seen in the right upper lobe as well as in both lower lobes more prominent in the left hemithorax. Small right effusion. There is moderate cardiac enlargement. Normal mediastinum and sen. Normal visualized pulmonary arteries. Normal visualized aortic arch and descending thoracic aorta. Normal visualized thoracic spine. Normal visualized ribs, clavicles, and shoulders. There is no demonstrated abnormality of the visualized soft tissue structures of the upper abdomen. RAD/Chest 1 View (Portable) IMPRESSION: Bilateral pulmonary infiltrates as described with a small right pleural effusion. Moderate cardiomegaly. Electronically Signed: Fernie Luna MD at 14:17 EST , Service support ,
--- NOTE | 2020-05-06 13:34 | EKG12_ITS ---
Test Reason : Blood Pressure : / mmHG Vent. Rate : 062 BPM Atrial Rate : 066 BPM P-R Int : 000 ms QRS Dur : 096 ms QT Int : 412 ms P-R-T Axes : 000 101 045 degrees QTc Int : 418 ms Atrial fibrillation Rightward axis ST & T wave abnormality, consider anterolateral ischemia Abnormal ECG Confirmed by GRADY RAMÍREZ, AIDE ([id number]), script editor KRUPA SERNA ([id number]) on 05/10/2020 10:46:03 AM Referred By: DIANE Confirmed By:ANITA RASMUSSEN MD
[2020-05-06 14:02] LABS: Bacteria 0 SEEN /hpf (None Seen); Mucous, Urine 0 SEEN /hpf (<or=2+); Red Blood Cells-Urine 0 SEEN /hpf (0-5)
--- NOTE | 2020-05-06 14:02 | ED.VIS.GEN ---
History of Present Illness Chief Complaint: Shortness of Breath Informant: Patient Narrative: 54-year-old female presenting with shortness of breath. Patient states that she had surgery on her left leg in January 2020 and afterwards was sent to rehab. She subsequently caught Covid?19 at rehab on 03 13. Patient was subsequently admitted to [facility] due to bed availability and was treated there before being sent to rehab. Patient states that she normally is on CPAP at night. Today she noted that when she was laying down her pulse ox was in the mid 80s and when she would stand up it would drop to the mid 70s. She is not having any chest pain but does feel short of breath. Patient is on Eliquis currently. - Past Medical History (1) Open wound of left lower leg with complication Status: Chronic (2) Acute blood loss anemia Status: Chronic (3) JASMIN (obstructive sleep apnea) Status: Chronic Comment: Bipap 01/10 Past Medical History - Allergies and Home Meds Allergies/Adverse Reactions: Allergies No Known Allergies Allergy (Verified 05/06/20 13:38) Primary Care Physician: Nabor Garcia Chi, MD [Primary Care Provider] - Prior records reviewed: Yes Past Medical History: - - Reviewed in problem list, sleep apnea, CHF Surgical History: cholecystectomy, - - arthroscopic surgery on the knee, umbilical hernia repair. Debridement hematoma right leg in 2007. surgical preparation right anterior leg with incision and drainage and excisional debridement hematoma (380 cm2) - 05/17/16. Excisional debridement nonhealing hematoma ulcer right anterior leg with STSG reconstruction from lower anterior abdominal wall (126 cm2) - 09/21/16. Lives: [facility] Smoking Status: Former smoker Alcohol: None Drugs: None - Family History Paternal Family History: Family History (Last Reviewed 02/10/20 @ 16:[address] Benedicto Davis MD) Father CAD (coronary artery disease) Pacemaker CHF (congestive heart failure) Diabetes Heart disease Hypertension High cholesterol COPD (chronic obstructive pulmonary disease) Brother Anxiety Diabetes Heart disease Hypertension High cholesterol Family History: Reports: Heart Disease - father at 64 YOA with an TX, Hypertension, Stroke Maternal Family History: Family History (Last Reviewed 02/10/20 @ 16:[address] Benedicto Davis MD) Father CAD (coronary artery disease) Pacemaker CHF (congestive heart failure) Diabetes Heart disease Hypertension High cholesterol COPD (chronic obstructive pulmonary disease) Brother Anxiety Diabetes Heart disease Hypertension High cholesterol Family History: Reports: Hypertension, Stroke Review of Systems General: Denies: Chills, Fever, Sweats Eyes: Denies: Visual changes - bilaterally, Diplopia ENT: Denies: Rhinorrhea, Sore throat Cardiovascular: Denies: Chest pain Respiratory: Reports: Dyspnea, Cough, Dyspnea on exertion Gastrointestinal: Denies: Abdominal pain, Nausea, Vomiting Musculoskeletal: Denies: Myalgias, Arthralgias Skin: Denies: Rash, Abscess Neurological: Denies: Headache, Weakness Psych: Denies: Depression, Anxiety, Suicidal thoughts, Suicidal ideations Physical Exam Vital Signs/Narrative: Vital Signs Temp Pulse Resp BP Pulse Ox 05/06/20 13:32 94 05/06/20 13:31 96.3 F L 66 24 H 111/78 96 05/06/20 13:24 96.3 F L 66 24 H 111/78 96 Inital Vital Signs reviewed: Yes General: Obese, Acute Distress Head: Normocephalic, Atraumatic Eyes: Perrl, EOMI ENT: Dry mucous membranes, Nasal congestion Cardiovascular: Regular rate, Regular rhythm Respiratory: Decreased Air Movement, -. Negative for: Wheezing Abdomen: Soft, Nontender, Nondistended Skin: Normal color, No rash, Cyanosis Neurological: Alert, Oriented x3 Diagnostic/Tx/Re-eval Clinical Impression(s) from Imaging Studies Chest X-Ray 05/06/20 13:34 IMPRESSION: Bilateral pulmonary infiltrates as described with a small right pleural effusion. Moderate cardiomegaly. Electronically Signed: Fernie Luna MD at 14:17 EST , Service support , Laboratory Data 05/06/20 05/06/20 05/06/20 13:35 13:35 13:35 WBC Cancelled Corrected WBC Cancelled RBC Cancelled Hgb Cancelled Hct Cancelled MCV Cancelled MCH Cancelled MCHC Cancelled RDW Std Deviation Cancelled RDW Coeff of Shannan Cancelled Plt Count Cancelled MPV Cancelled Immature Gran % (Auto) Cancelled Neut % (Auto) Cancelled Lymph % (Auto) Cancelled [place] % (Auto) Cancelled Eos % (Auto) Cancelled Baso % (Auto) Cancelled Absolute Neuts (auto) Cancelled Absolute Lymphs (auto) Cancelled Total Counted Cancelled Neutrophils % (Manual) Cancelled Band Neutrophils % Cancelled Lymphocytes % (Manual) Cancelled Monocytes % (Manual) Cancelled Eosinophils % (Manual) Cancelled Basophils % (Manual) Cancelled Metamyelocytes % Cancelled Myelocytes % Cancelled Promyelocytes % Cancelled Blast Cells % Cancelled Plasma Cell % (Manual) Cancelled Other Cells % Cancelled Nucleated RBC % Cancelled Nucleated RBCs/100 WBC Cancelled Differential Comment Cancelled Diff Path Review Cancelled Hypersegmented Neuts Cancelled Atypical Lymphocytes Cancelled Reactive Lymphocytes Cancelled Smudge Cells Cancelled Toxic Granulation Cancelled Toxic Vacuolation Cancelled Dohle Bodies Cancelled Starla Rods Cancelled Platelet Estimate Cancelled Plt Morphology Comment Cancelled RBC Morphology Cancelled Polychromasia Cancelled Hypochromasia Cancelled Poikilocytosis Cancelled Basophilic Stippling Cancelled Anisocytosis Cancelled Microcytosis Cancelled Macrocytosis Cancelled Spherocytes Cancelled Sickle Cells Cancelled Target Cells Cancelled Tear Drop Cells Cancelled Ovalocytes Cancelled Stomatocytes Cancelled [place] Bodies Cancelled Arron Cells Cancelled Bite Cells Cancelled Crenated Cell Cancelled Acanthocytes (Spur) Cancelled Rouleaux Cancelled Schistocytes Cancelled PT Cancelled INR Cancelled APTT Cancelled Specimen Type Sample Site pH Bicarbonate Actual Total CO2 Base Excess O2 Saturation O2 % ABG pCO2 ABG pO2 David Test O2 Delivery Device Vent Mode Sodium Cancelled Potassium Cancelled Chloride Cancelled Carbon Dioxide Cancelled Anion Gap Cancelled BUN Cancelled Creatinine Cancelled Estim Creat Clear Calc Cancelled Est GFR (MDRD) Af Amer Cancelled Est GFR (MDRD) Non-Af Cancelled BUN/Creatinine Ratio Cancelled Glucose Cancelled Lactic Acid Calcium Cancelled Total Bilirubin Cancelled AST Cancelled ALT Cancelled Alkaline Phosphatase Cancelled Troponin I Cancelled B-Natriuretic Peptide Total Protein Cancelled Albumin Cancelled Globulin Cancelled Albumin/Globulin Ratio Cancelled Urine Color Urine Clarity Urine pH Ur Specific [place] Urine Protein Urine Glucose (UA) Urine Ketones Urine Occult Blood Urine Nitrite Urine Bilirubin Urine Urobilinogen Ur Leukocyte Esterase Urine RBC Urine WBC Ur Squamous Epith Cells Urine Bacteria Hyaline Casts Urine Mucus 05/06/20 05/06/20 05/06/20 13:35 13:35 13:55 WBC Corrected WBC RBC Hgb Hct MCV MCH MCHC RDW Std Deviation RDW Coeff of Shannan Plt Count MPV Immature Gran % (Auto) Neut % (Auto) Lymph % (Auto) [place] % (Auto) Eos % (Auto) Baso % (Auto) Absolute Neuts (auto) Absolute Lymphs (auto) Total Counted Neutrophils % (Manual) Band Neutrophils % Lymphocytes % (Manual) Monocytes % (Manual) Eosinophils % (Manual) Basophils % (Manual) Metamyelocytes % Myelocytes % Promyelocytes % Blast Cells % Plasma Cell % (Manual) Other Cells % Nucleated RBC % Nucleated RBCs/100 WBC Differential Comment Diff Path Review Hypersegmented Neuts Atypical Lymphocytes Reactive Lymphocytes Smudge Cells Toxic Granulation Toxic Vacuolation Dohle Bodies Starla Rods Platelet Estimate Plt Morphology Comment RBC Morphology Polychromasia Hypochromasia Poikilocytosis Basophilic Stippling Anisocytosis Microcytosis Macrocytosis Spherocytes Sickle Cells Target Cells Tear Drop Cells Ovalocytes Stomatocytes [place] Bodies Arron Cells Bite Cells Crenated Cell Acanthocytes (Spur) Rouleaux Schistocytes PT INR APTT Specimen Type Sample Site pH Bicarbonate Actual Total CO2 Base Excess O2 Saturation O2 % ABG pCO2 ABG pO2 David Test O2 Delivery Device Vent Mode Sodium Potassium Chloride Carbon Dioxide Anion Gap BUN Creatinine Estim Creat Clear Calc Est GFR (MDRD) Af Amer Est GFR (MDRD) Non-Af BUN/Creatinine Ratio Glucose Lactic Acid Cancelled Calcium Total Bilirubin AST ALT Alkaline Phosphatase Troponin I B-Natriuretic Peptide Cancelled Total Protein Albumin Globulin Albumin/Globulin Ratio Urine Color Yellow Urine Clarity Clear Urine pH 6.0 Ur Specific [place] 1.015 Urine Protein Negative Urine Glucose (UA) Normal Urine Ketones Negative Urine Occult Blood 10 H Urine Nitrite Negative Urine Bilirubin Negative Urine Urobilinogen Normal Ur Leukocyte Esterase 100 H Urine RBC 0 SEEN Urine WBC 5-10 SEEN Ur Squamous Epith Cells 0-5 SEEN Urine Bacteria 0 SEEN Hyaline Casts 0-5 SEEN Urine Mucus 0 SEEN 05/06/20 05/06/20 05/06/20 14:02 14:02 14:02 WBC Corrected WBC RBC Hgb Hct MCV MCH MCHC RDW Std Deviation RDW Coeff of Shannan Plt Count MPV Immature Gran % (Auto) Neut % (Auto) Lymph % (Auto) [place] % (Auto) Eos % (Auto) Baso % (Auto) Absolute Neuts (auto) Absolute Lymphs (auto) Total Counted Neutrophils % (Manual) Band Neutrophils % Lymphocytes % (Manual) Monocytes % (Manual) Eosinophils % (Manual) Basophils % (Manual) Metamyelocytes % Myelocytes % Promyelocytes % Blast Cells % Plasma Cell % (Manual) Other Cells % Nucleated RBC % Nucleated RBCs/100 WBC Differential Comment Diff Path Review Hypersegmented Neuts Atypical Lymphocytes Reactive Lymphocytes Smudge Cells Toxic Granulation Toxic Vacuolation Dohle Bodies Starla Rods Platelet Estimate Plt Morphology Comment RBC Morphology Polychromasia Hypochromasia Poikilocytosis Basophilic Stippling Anisocytosis Microcytosis Macrocytosis Spherocytes Sickle Cells Target Cells Tear Drop Cells Ovalocytes Stomatocytes [place] Bodies Arron Cells Bite Cells Crenated Cell Acanthocytes (Spur) Rouleaux Schistocytes PT 17.6 H INR 1.5 APTT 44.1 H Specimen Type Sample Site pH Bicarbonate Actual Total CO2 Base Excess O2 Saturation O2 % ABG pCO2 ABG pO2 David Test O2 Delivery Device Vent Mode Sodium 139 Potassium 5.1 Chloride 100 Carbon Dioxide 38.0 H Anion Gap 1 L BUN 16 Creatinine 0.73 Estim Creat Clear Calc 84.68 Est GFR (MDRD) Af Amer 107 Est GFR (MDRD) Non-Af 88 BUN/Creatinine Ratio 22.0 H Glucose 145 H Lactic Acid 1.1 Calcium 8.6 Total Bilirubin 0.30 AST 17 ALT 10 L Alkaline Phosphatase 108 Troponin I < 0.015 B-Natriuretic Peptide Total Protein 6.4 Albumin 2.4 L Globulin 4.0 Albumin/Globulin Ratio 0.6 L Urine Color Urine Clarity Urine pH Ur Specific [place] Urine Protein Urine Glucose (UA) Urine Ketones Urine Occult Blood Urine Nitrite Urine Bilirubin Urine Urobilinogen Ur Leukocyte Esterase Urine RBC Urine WBC Ur Squamous Epith Cells Urine Bacteria Hyaline Casts Urine Mucus 05/06/20 05/06/20 05/06/20 14:02 14:02 14:18 WBC 9.0 Corrected WBC RBC 3.22 L Hgb 8.5 L Hct 30.9 L MCV 96.0 MCH 26.4 L MCHC 27.5 L RDW Std Deviation 66.7 H RDW Coeff of Shannan 18.9 H Plt Count 304 MPV 12.0 Immature Gran % (Auto) 1.300 H Neut % (Auto) 78.1 H Lymph % (Auto) 11.8 L [place] % (Auto) 7.0 Eos % (Auto) 1.0 Baso % (Auto) 0.8 Absolute Neuts (auto) 7.0 Absolute Lymphs (auto) 1.06 Total Counted Neutrophils % (Manual) Band Neutrophils % Lymphocytes % (Manual) Monocytes % (Manual) Eosinophils % (Manual) Basophils % (Manual) Metamyelocytes % Myelocytes % Promyelocytes % Blast Cells % Plasma Cell % (Manual) Other Cells % Nucleated RBC % 0.2 Nucleated RBCs/100 WBC Differential Comment SCANNED Diff Path Review Hypersegmented Neuts Atypical Lymphocytes Reactive Lymphocytes Smudge Cells Toxic Granulation Toxic Vacuolation Dohle Bodies Starla Rods Platelet Estimate Plt Morphology Comment RBC Morphology Polychromasia RARE Hypochromasia 3+ Poikilocytosis Basophilic Stippling Anisocytosis 3+ Microcytosis Macrocytosis Spherocytes Sickle Cells Target Cells Tear Drop Cells Ovalocytes Stomatocytes [place] Bodies Arron Cells Bite Cells Crenated Cell Acanthocytes (Spur) Rouleaux Schistocytes RARE PT INR APTT Specimen Type ART Sample Site L Radial pH 7.30 L Bicarbonate Actual 38.8 H Total CO2 41 Base Excess 12 H O2 Saturation 85 L O2 % 40 ABG pCO2 79.9 H* ABG pO2 59 L David Test Positive O2 Delivery Device BiPAP Vent Mode BiLevel Sodium Potassium Chloride Carbon Dioxide Anion Gap BUN Creatinine Estim Creat Clear Calc Est GFR (MDRD) Af Amer Est GFR (MDRD) Non-Af BUN/Creatinine Ratio Glucose Lactic Acid Calcium Total Bilirubin AST ALT Alkaline Phosphatase Troponin I B-Natriuretic Peptide 387.4 H Total Protein Albumin Globulin Albumin/Globulin Ratio Urine Color Urine Clarity Urine pH Ur Specific [place] Urine Protein Urine Glucose (UA) Urine Ketones Urine Occult Blood Urine Nitrite Urine Bilirubin Urine Urobilinogen Ur Leukocyte Esterase Urine RBC Urine WBC Ur Squamous Epith Cells Urine Bacteria Hyaline Casts Urine Mucus - Rhythm Strip Rhythm Strip: A-fib Rate: 62 - EKG Initial EKG Interpretation: No Acute Injury Pattern, Atrial Fibrillation - Medical Decision Making Patient presented with shortness of breath and hypoxia. She is placed on BiPAP in the ED. She is responding well and mentating clearly. Her ABG does show that she is hypercapnic. KG performed on arrival shows atrial fibrillation with controlled ventricular response. There is no ischemic changes as interpreted by myself. Chest x-ray is interpreted by myself shows cardiomegaly small pleural effusion as well as bilateral infiltrates which likely represents heart failure given that her BNP is elevated. Troponin is negative. Patient was given 40 mg of Lasix IV in the ED. Her blood pressures are slightly low however her maps are good. Discussed with hospitalist who will admit the patient. She stabilized on transfer. Impression: 1. Hypoxic hypercapnic respiratory failure 2. Shortness of breath 3. CHF 4. Hypotension ED Disposition - Plan for ED Patient: Referrals: Nabor Garcia Chi, MD [Primary Care Provider] -
[2020-05-06 14:03] LABS: Color, Urine Yellow (Yellow); Glucose, Dipstick Normal (Normal); Ketone-Dipstick Negative (Negative); Leukocyte Esterase-Dipstick 100 /ul (Negative); Nitrite-Dipstick Negative (Negative); Occult Blood-Urine 10 /ul (Negative); Protein-Dipstick Negative (Negative); Specific Gravity, Urine 1.015 (1.002-1.030); Urine Bilirubin Dipstick Negative (Negative); Urine Clarity Clear (Clear); Urine Urobilinogen Normal (Normal)
[2020-05-06 14:17] LABS: Absolute Lymphocyte Count 1.06 X10^3/uL (0.83-4.51); Basophil# 0.07 X10^3/uL; Basophil% 0.8 % (0-1); Eosinophil# 0.09 X10^3/uL; Hematocrit 30.9 % (37-47); Hemoglobin 8.5 g/dL (12.0-15.0); Lymphocyte # 1.06 X10^3/ul (4.0); Lymphocyte % 11.8 % (19-41); Mean Corp Hgb Conc 27.5 g/dL (32-36); Mean Corpuscular Hgb 26.4 pg (27.0-32.0); Monocyte# 0.63 X10^3/uL; NRBC Flagged by Analyzer 0.2 % (0-5); Neutrophil # 7.02 X10^3/uL (2.7-7.7); Neutrophil % 78.1 % (47-70); POSITIVE MORPHOLOGY YES; Platelet Count 304 K/mm3 (150-450); RBC Distribution Width CV 18.9 % (11.6-14.6); RBC Distribution Width SD 66.7 fl (35.1-43.9); Red Blood Count 3.22 M/mm3 (4.2-5.4)
[2020-05-06 14:21] LABS: Differential Indicated SCAN CRITERIA MET
[2020-05-06 14:22] LABS: Hyaline Cast 0-5 SEEN /lpf (0-5); Squamous Epithelial Cells - UA 0-5 SEEN /hpf (5-10); White Blood Cells 5-10 SEEN /hpf (0-5)
[2020-05-06] MEDS: dexAMETHasone 4 MG/ML Vial 6 MG IV (14:23)
[2020-05-06 14:26] LABS: Allen Test Positive; Base Excess 12 mmol/L (-2 to +2); Bicarbonate 38.8 mmol/L (22-26); Blood Gas Specimen Type ART; FI02 40; Mode BiLevel; O2 Delivery Device BiPAP; PO2 59 mmHG (75-100); SITE L Radial; SO2 85 % (95-99); Total Carbon Dioxide 41 mmol/L; pCO2 79.9 mmHg (35-45)
[2020-05-06 14:33] LABS: International Normalized Ratio 1.5; Prothrombin Time (Protime)PT. 17.6 SECONDS (11.7-14.9)
[2020-05-06 14:34] LABS: Partial Thromboplast Time 44.1 Seconds (24.1-36.2)
[2020-05-06 14:36] LABS: Lactic Acid 1.1 mmol/L (0.4-1.9)
[2020-05-06 14:39] LABS: BNP,B-Type NATRIURETIC PEPTIDE 387.4 pg/mL (0-100)
[2020-05-06 14:46] LABS: ALB/GLOB Ratio 0.6 RATIO (0.9-2.4); AST(SGOT) 17 U/L (15-37); Alanine Aminotransfer ALT/SGPT 10 U/L (13-56); Albumin, Serum 2.4 g/dL (3.2-5.0); Alkaline Phosphatase 108 U/L (45-117); Anion Gap 1 (5-15); BUN 16 mg/dL (7-18); Calcium,Total 8.6 mg/dL (8.5-10.1); Chloride 100 mmol/L (98-107); Creatinine, Serum 0.73 mg/dL (0.55-1.02); EST Glomerular Filtration Rate 88 mL/min (>60); Est Glom Filt Rate - Afr Amer 107 mL/min (>60); Estimated Creatinine Clearance 84.68 ml/min; Glucose 145 mg/dL (74-106); Potassium 5.1 mmol/L (3.5-5.1); Protein, Total 6.4 g/dL (6.4-8.2); Sodium Level 139 mmol/L (136-145)
[2020-05-06 15:02] LABS: Anisocytosis 3+; Differential Comment SCANNED; Hypochromasia 3+; Polychromasia RARE; Schistocytes RARE
[2020-05-06] MEDS: Furosemide 40 MG/4 ML Vial IV (16:00)
--- NOTE | 2020-05-06 16:53 | PCM.HP.STD ---
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 The patient is a 54 year old F who presents to the emergency room from SNF due to shortness of breath. Patient states this has been ongoing for the past 2 days. Patient states she was diagnosed with COVID-19 in early March and was admitted to outside hospital. She then improved and returned to SNF for rehab. Patient states over the past few days she feels short of breath and has difficulty lying flat. She states her oxygen levels were low at the custodial. She chronically wears 4 L nasal cannula at baseline. She also wears CPAP at night and states she requested to wear this at SNF and due to the order only being at night, she was not able to wear it during the day. She denies fever, chills. Denies cough. States she feels she has gained weight but she is unsure how much. Denies other associated symptoms or complaints. She has a past medical history of chronic hypoxic respiratory failure, chronic diastolic CHF, chronic kidney disease stage III, chronic anemia, chronic atrial fibrillation, type 2 diabetes mellitus, hypertension, hyperlipidemia, hypothyroidism, morbid obesity, pulmonary arterial hypertension, chronic COPD, JASMIN, GERD. Patient underwent surgical I&D of traumatic infected necrotic hematoma of her left calf 02/13/2020. Patient states wound VAC was just removed yesterday and she was to follow-up with Dr. Davis on Sunday. Past Medical History Past Medical History (Chronic Problems): Chronic Problems (Last Reviewed 02/10/20 @ 16:[address] 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) Z79.01 Eliquis Skin necrosis (Acute) I96 Hematoma of left lower leg (Acute) S80.12XA JASMIN (obstructive sleep apnea) (Chronic) G47.33 Bipap 10/4 Chronic atrial fibrillation (Chronic) I48.2 Chronic diastolic (congestive) heart failure (Chronic) I50.32 Essential (primary) hypertension (Chronic) I10 Heart disease I51.9 Heart failure I50.9 History of blood transfusion Z92.89 History of pneumonia Z87.01 Pancreatitis K85.90 Chronic bronchitis J42 Depression F32.9 Diabetes type 2, controlled E11.9 High blood pressure I10 Hypothyroidism E03.9 Obesity, Class III, BMI 40-49.9 (morbid obesity) [id number] Osteoarthritis M19.90 Bronchitis (Resolved) J40 Hematoma of leg (Resolved) S80.10XA Pneumonia (Resolved) J18.9 Pulmonary edema (Resolved) J81.1 Secondary pulmonary arterial hypertension (Resolved) I27.21 Allergies No Known Allergies Allergy (Verified 05/06/20 13:38) Home Medications: Ambulatory Orders Medication Instructions Recorded Atorvastatin Calcium 40 mg PO QHS 04/24/19 Doxepin HCl 50 mg PO QHS 04/24/19 Gabapentin [Neurontin] 300 mg PO TID 04/24/19 Fluoxetine [Prozac] 60 mg PO DAILY cap 02/18/20 Furosemide [Lasix] 40 mg PO DAILY tab 02/18/20 diltiazem HCl 180 mg capsule,24 180 mg PO DAILY #90 cap 03/26/20 hr,extended release Apixaban [Eliquis] 5 mg PO BID 05/06/20 Ascorbic Acid [Vitamin C] 1,000 mg PO BID 05/06/20 Ferrous Sulfate 325 mg PO DAILY 05/06/20 Guaifenesin [Mucinex] 600 mg PO BID 05/06/20 Levothyroxine Sodium [Synthroid] 50 mcg PO DAILY 05/06/20 Metoprolol Tartrate [Lopressor 25 mg PO BID 05/06/20 (Beta Altagracia)] Potassium Chloride [K-Dur] 20 meq PO DAILY 05/06/20 Surgical History: Surgical History (Last Reviewed 02/10/20 @ 16:[address] Benedicto Davis MD) H/O umbilical hernia repair Z98.890, Z87.19 History of excision of mass Z98.890 Surgical preparation right anterior leg with incision and drainage and excisional debridement hematoma (380 cm2) - 05/17/16 History of skin graft Z94.5 Excisional debridement, nonhealing hematoma ulcer, right anterior leg with split-thickness skin graft reconstruction from lower anterior abdominal wall (126 square cm) - 09/21/16 History of tonsillectomy and adenoidectomy Z98.890 Hx of cholecystectomy Z90.49 Open wound of right lower leg (Resolved) S81.801A S81.801A open surgical hematoma wound right anterior leg Surgical History: cholecystectomy, - - arthroscopic surgery on the knee, umbilical hernia repair. Debridement hematoma right leg in 2007. surgical preparation right anterior leg with incision and drainage and excisional debridement hematoma (380 cm2) - 05/17/16. Excisional debridement nonhealing hematoma ulcer right anterior leg with STSG reconstruction from lower anterior abdominal wall (126 cm2) - 09/21/16. 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 SALES REPRESENTATIVE History: No pertinent ASSOCIATE SALES REPRESENTATIVE history Lives: [facility] Smoking Status: Former smoker Alcohol: None Drugs: None - *Family History Paternal Family History: Family History (Last Reviewed 05/06/20 @ 17:05 by Rebecca Castellano NP, ELECTRICAL SUPERINTENDENT-C) Father CAD (coronary artery disease) Pacemaker CHF (congestive heart failure) Diabetes Heart disease Hypertension High cholesterol COPD (chronic obstructive pulmonary disease) Brother Anxiety Diabetes Heart disease Hypertension High cholesterol History Items: Heart Disease - father at 64 YOA with an OR, Hypertension, Stroke Maternal Family History: Family History (Last Reviewed 05/06/20 @ 17:05 by Rebecca Castellano NP, ELECTRICAL SUPERINTENDENT-C) Father CAD (coronary artery disease) Pacemaker CHF (congestive heart failure) Diabetes Heart disease Hypertension High cholesterol COPD (chronic obstructive pulmonary disease) Brother Anxiety Diabetes Heart disease Hypertension High cholesterol History Items: Hypertension, Stroke Review of Systems Constitutional: Denies: Chills, Fever, Weight Change HEENT: Denies: Head Aches, Sinus Congestion, Sinus Drainage Cardiovascular: Denies: Chest Pain, Palpitations Respiratory: Reports: Shortness of Breath. Denies: Cough, Sputum production, Wheezing Gastrointestinal: Denies: Abdominal Pain, Nausea, Vomiting Genitourinary: Denies: Dysuria Musculoskeletal: Denies: Joint Pain, Joint Tenderness Skin: Reports: - - Left lower extremity wound, healing. Denies: Rash, Wounds Neurological: Denies: Numbness, Tingling, Focal weakness Psychiatric: Denies: Anxiety, Depression, Homicidal Ideations, Suicidal Ideations Hematologic/ Lymphatic: Denies: Easy Bruising, Easy Bleeding VTE Information - Inpt Only VTE Present on Admission: No VTE Mechan Device Prophylaxis: None VTE Pharm Prophylaxis ordered?: No Reason prophylaxis not ordered:: Treatment Not Indicated - Already on chronic anticoagulation with NOAC - Physical Exam Vitals/I&O's: Vital Signs Temp Pulse Resp BP Pulse Ox 97.7 F L 65 21 H 91/73 97 05/06/20 16:35 05/06/20 16:35 05/06/20 16:35 05/06/20 16:35 05/06/20 16:35 Oxygen Flow Rate (L/min) 6 Oxygen Delivery Method Bi-pap Weight: 352 lb 8.306 oz Body Mass Index (BMI) 55.2 Finger Stick Blood Glucose 155 General: Alert, Oriented x3, Cooperative HEENT: Atraumatic, PERRLA, EOMI, Normocephalic Neck: Supple, No JVD, Negative Carotid Bruits Lungs: Clear to auscultation, Diminished Cardiovascular: - - Atrial fibrillation, rate controlled Abdomen: Bowel Sounds Present, Soft, Non Tender, Non-Distended, Obese Extremities: No clubbing, No cyanosis, Edema - Bilateral lower extremities Skin: No rashes, No breakdown, - - Left calf healing wound, dressing intact Musculoskeletal: No Tenderness to Palpation of Joints or Extremities Neurological: Cranial nerves II-XII grossly intact, Neuro grossly intact Psych/Mental Status: Normal Affect, Appropriate Laboratory Results 05/06/20 13:35: WBC Cancelled, Corrected WBC Cancelled, RBC Cancelled, Hgb Cancelled, Hct Cancelled, MCV Cancelled, MCH Cancelled, MCHC Cancelled, RDW Std Deviation Cancelled, RDW Coeff of Shannan Cancelled, Plt Count Cancelled, MPV Cancelled, Immature Gran % (Auto) Cancelled, Neut % (Auto) Cancelled, Lymph % (Auto) Cancelled, [place] % (Auto) Cancelled, Eos % (Auto) Cancelled, Baso % (Auto) Cancelled, Absolute Neuts (auto) Cancelled, Absolute Lymphs (auto) Cancelled, Total Counted Cancelled, Neutrophils % (Manual) Cancelled, Band Neutrophils % Cancelled, Lymphocytes % (Manual) Cancelled, Monocytes % (Manual) Cancelled, Eosinophils % (Manual) Cancelled, Basophils % (Manual) Cancelled, Metamyelocytes % Cancelled, Myelocytes % Cancelled, Promyelocytes % Cancelled, Blast Cells % Cancelled, Plasma Cell % (Manual) Cancelled, Other Cells % Cancelled, Nucleated RBC % Cancelled, Nucleated RBCs/100 WBC Cancelled, Differential Comment Cancelled, Diff Path Review Cancelled, Hypersegmented Neuts Cancelled, Atypical Lymphocytes Cancelled, Reactive Lymphocytes Cancelled, Smudge Cells Cancelled, Toxic Granulation Cancelled, Toxic Vacuolation Cancelled, Dohle Bodies Cancelled, Starla Rods Cancelled, Platelet Estimate Cancelled, Plt Morphology Comment Cancelled, RBC Morphology Cancelled, Polychromasia Cancelled, Hypochromasia Cancelled, Poikilocytosis Cancelled, Basophilic Stippling Cancelled, Anisocytosis Cancelled, Microcytosis Cancelled, Macrocytosis Cancelled, Spherocytes Cancelled, Sickle Cells Cancelled, Target Cells Cancelled, Tear Drop Cells Cancelled, Ovalocytes Cancelled, Stomatocytes Cancelled, Mitchell-Cygnet Bodies Cancelled, Ruskin Cells Cancelled, Bite Cells Cancelled, Crenated Cell Cancelled, Acanthocytes (Spur) Cancelled, Rouleaux Cancelled, Schistocytes Cancelled 05/06/20 13:35: PT Cancelled, INR Cancelled, APTT Cancelled 05/06/20 13:35: Sodium Cancelled, Potassium Cancelled, Chloride Cancelled, Carbon Dioxide Cancelled, Anion Gap Cancelled, BUN Cancelled, Creatinine Cancelled, Estim Creat Clear Calc Cancelled, Est GFR (MDRD) Af Amer Cancelled, Est GFR (MDRD) Non-Af Cancelled, BUN/Creatinine Ratio Cancelled, Glucose Cancelled, Calcium Cancelled, Total Bilirubin Cancelled, AST Cancelled, ALT Cancelled, Alkaline Phosphatase Cancelled, Troponin I Cancelled, Total Protein Cancelled, Albumin Cancelled, Globulin Cancelled, Albumin/Globulin Ratio Cancelled 05/06/20 13:35: Lactic Acid Cancelled 05/06/20 13:35: B-Natriuretic Peptide Cancelled 05/06/20 13:55: Urine Color Yellow, Urine Clarity Clear, Urine pH 6.0, Ur Specific Mary Alice 1.015, Urine Protein Negative, Urine Glucose (UA) Normal, Urine Ketones Negative, Urine Occult Blood 10 H, Urine Nitrite Negative, Urine Bilirubin Negative, Urine Urobilinogen Normal, Ur Leukocyte Esterase 100 H, Urine RBC 0 SEEN, Urine WBC 5-10 SEEN, Ur Squamous Epith Cells 0-5 SEEN, Urine Bacteria 0 SEEN, Hyaline Casts 0-5 SEEN, Urine Mucus 0 SEEN 05/06/20 14:02: PT 17.6 H, INR 1.5, APTT 44.1 H 05/06/20 14:02: Lactic Acid 1.1 05/06/20 14:02: Sodium 139, Potassium 5.1, Chloride 100, Carbon Dioxide 38.0 H, Anion Gap 1 L, BUN 16, Creatinine 0.73, Estim Creat Clear Calc 84.68, Est GFR (MDRD) Af Amer 107, Est GFR (MDRD) Non-Af 88, BUN/Creatinine Ratio 22.0 H, Glucose 145 H, Calcium 8.6, Total Bilirubin 0.30, AST 17, ALT 10 L, Alkaline Phosphatase 108, Troponin I < 0.015, Total Protein 6.4, Albumin 2.4 L, Globulin 4.0, Albumin/Globulin Ratio 0.6 L 05/06/20 14:02: WBC 9.0, RBC 3.22 L, Hgb 8.5 L, Hct 30.9 L, MCV 96.0, MCH 26.4 L, MCHC 27.5 L, RDW Std Deviation 66.7 H, RDW Coeff of Shannan 18.9 H, Plt Count 304, MPV 12.0, Immature Gran % (Auto) 1.300 H, Neut % (Auto) 78.1 H, Lymph % (Auto) 11.8 L, [place] % (Auto) 7.0, Eos % (Auto) 1.0, Baso % (Auto) 0.8, Absolute Neuts (auto) 7.0, Absolute Lymphs (auto) 1.06, Nucleated RBC % 0.2, Differential Comment SCANNED, Polychromasia RARE, Hypochromasia 3+, Anisocytosis 3+, Schistocytes RARE 05/06/20 14:02: B-Natriuretic Peptide 387.4 H 05/06/20 14:18: Specimen Type ART, Sample Site L Radial, pH 7.30 L, Bicarbonate Actual 38.8 H, Total CO2 41, Base Excess 12 H, O2 Saturation 85 L, O2 % 40, ABG pCO2 79.9 H*, ABG pO2 59 L, David Test Positive, O2 Delivery Device BiPAP, Vent Mode BiLevel Current Medications Sodium Chloride (0.9% Saline Lock 10 Ml Syringe) 10 - 40 ml IV UD PRN PRN Reason: SALINE FLUSH Assessment/Plan All Active Problems (Last Reviewed 02/10/20 @ 16:[address] Benedicto Davis MD) Frequent falls (Acute) Acute blood loss anemia (Resolved) Hematoma of left lower leg (Resolved) Open wound of left lower leg with complication (Resolved) Skin necrosis (Resolved) Bronchitis (Resolved) Cellulitis (Resolved) Chest pain (Resolved) Dyspnea (Resolved) Hematoma of leg (Resolved) Open wound of right lower leg (Resolved) Pneumonia (Resolved) Pulmonary edema (Resolved) Secondary pulmonary arterial hypertension (Resolved) Sepsis (Resolved) 1. Acute on chronic combined hypoxic and hypercapnic respiratory failure secondary to acute on chronic diastolic CHF, complicated by pulmonary arterial hypertension, JASMIN and morbid obesity-patient wears 4 L nasal cannula at baseline. BNP 387. Previous echocardiogram 2017 demonstrated an EF of 50%. IV Lasix. Strict I&O. Daily weight. Repeat echocardiogram. Continue BiPAP as tolerated. Continue supplement oxygen to maintain O2 at above 90%. 2. Chronic normocytic anemia-appears at baseline, trend CBC. 3. Chronic kidney disease stage III-stable, trend BMP. 4. History of Proteus infected left calf hematoma secondary to mechanical fall-status post surgical I&D and evacuation of traumatic infected necrotic hematoma and excisional debridement of compromised skin with necrosis 02/13/2020. Wound vac discontinued 05/05/2020 per patient. Consult wound RN. Has outpatient follow-up with Dr. Davis on Sunday. 5. Chronic atrial fibrillation-continue metoprolol, Cardizem, Eliquis. 6. Type 2 diabetes [id number] with sliding scale insulin. Hemoglobin A1c 02/11/20 5.9%. 7. Hypertension-continue metoprolol, Cardizem with hold parameters. Previously on Lasix 40 mg twice daily however this was reduced to daily dose due to prior low blood pressure. 8. Hyperlipidemia-continue statin. 9. Hypothyroidism-continue Synthroid. 10. Morbid obesity-encouraged diet lifestyle modifications. 11. Pulmonary arterial hypertension-repeat echo ordered. Recommend outpatient follow-up with pulmonary medicine at discharge. 12. Chronic COPD-as needed albuterol aerosol. 13. JASMIN-continue home CPAP regimen. 14. GERD- continue famotidine. DVT prophylaxis-Eliquis This patient was seen by [facility] under the supervision of Dr. Enciso. <Henry Enciso F - Last Filed: 05/06/20 20:52> History of Present Illness The patient is a 54 year old F [] Past Medical History Medical History: Medical History (Last Reviewed 02/10/20 @ 16:[address] 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) Z79.01 Eliquis Skin necrosis (Acute) I96 Hematoma of left lower leg (Acute) S80.12XA JASMIN (obstructive sleep apnea) (Chronic) G47.33 Bipap 10/4 Chronic atrial fibrillation (Chronic) I48.2 Chronic diastolic (congestive) heart failure (Chronic) I50.32 Essential (primary) hypertension (Chronic) I10 Heart disease I51.9 Heart failure I50.9 History of blood transfusion Z92.89 History of pneumonia Z87.01 Pancreatitis K85.90 Chronic bronchitis J42 Depression F32.9 Diabetes type 2, controlled E11.9 High blood pressure I10 Hypothyroidism E03.9 Obesity, Class III, BMI 40-49.9 (morbid obesity) [id number] Osteoarthritis M19.90 Bronchitis (Resolved) J40 Hematoma of leg (Resolved) S80.10XA Pneumonia (Resolved) J18.9 Pulmonary edema (Resolved) J81.1 Secondary pulmonary arterial hypertension (Resolved) I27.21 Allergies No Known Allergies Allergy (Verified 05/06/20 13:38) Surgical History: Surgical History (Last Reviewed 02/10/20 @ 16:[address] Benedicto Davis MD) H/O umbilical hernia repair Z98.890, Z87.19 History of excision of mass Z98.890 Surgical preparation right anterior leg with incision and drainage and excisional debridement hematoma (380 cm2) - 05/17/16 History of skin graft Z94.5 Excisional debridement, nonhealing hematoma ulcer, right anterior leg with split-thickness skin graft reconstruction from lower anterior abdominal wall (126 square cm) - 09/21/16 History of tonsillectomy and adenoidectomy Z98.890 Hx of cholecystectomy Z90.49 Open wound of right lower leg (Resolved) S81.801A S81.801A open surgical hematoma wound right anterior leg - *Family History Paternal Family History: Family History (Last Reviewed 05/06/20 @ 17:05 by Rebecca Castellano ELECTRICAL SUPERINTENDENT, ELECTRICAL SUPERINTENDENT-C) Father CAD (coronary artery disease) Pacemaker CHF (congestive heart failure) Diabetes Heart disease Hypertension High cholesterol COPD (chronic obstructive pulmonary disease) Brother Anxiety Diabetes Heart disease Hypertension High cholesterol Maternal Family History: Family History (Last Reviewed 05/06/20 @ 17:05 by Rebecca Castellano ELECTRICAL SUPERINTENDENT, ELECTRICAL SUPERINTENDENT-C) Father CAD (coronary artery disease) Pacemaker CHF (congestive heart failure) Diabetes Heart disease Hypertension High cholesterol COPD (chronic obstructive pulmonary disease) Brother Anxiety Diabetes Heart disease Hypertension High cholesterol - Physical Exam Vitals/I&O's: Vital Signs Temp Pulse Resp BP Pulse Ox 97.7 F L 72 21 H 106/59 L 92 05/06/20 20:00 05/06/20 20:00 05/06/20 20:00 05/06/20 20:00 05/06/20 20:00 Oxygen Flow Rate (L/min) 5 Oxygen Delivery Method Nasal Cannula Weight: 340 lb 12.8 oz Body Mass Index (BMI) 53.4 Finger Stick Blood Glucose 155 Intake and Output for Last 24 Hours 05/04/20 05/05/20 05/06/20 23:59 23:59 23:59 Output Total 1100 / 1100 Balance -1100 / -1100 Laboratory Results 05/06/20 13:35: WBC Cancelled, Corrected WBC Cancelled, RBC Cancelled, Hgb Cancelled, Hct Cancelled, MCV Cancelled, MCH Cancelled, MCHC Cancelled, RDW Std Deviation Cancelled, RDW Coeff of Shannan Cancelled, Plt Count Cancelled, MPV Cancelled, Immature Gran % (Auto) Cancelled, Neut % (Auto) Cancelled, Lymph % (Auto) Cancelled, [place] % (Auto) Cancelled, Eos % (Auto) Cancelled, Baso % (Auto) Cancelled, Absolute Neuts (auto) Cancelled, Absolute Lymphs (auto) Cancelled, Total Counted Cancelled, Neutrophils % (Manual) Cancelled, Band Neutrophils % Cancelled, Lymphocytes % (Manual) Cancelled, Monocytes % (Manual) Cancelled, Eosinophils % (Manual) Cancelled, Basophils % (Manual) Cancelled, Metamyelocytes % Cancelled, Myelocytes % Cancelled, Promyelocytes % Cancelled, Blast Cells % Cancelled, Plasma Cell % (Manual) Cancelled, Other Cells % Cancelled, Nucleated RBC % Cancelled, Nucleated RBCs/100 WBC Cancelled, Differential Comment Cancelled, Diff Path Review Cancelled, Hypersegmented Neuts Cancelled, Atypical Lymphocytes Cancelled, Reactive Lymphocytes Cancelled, Smudge Cells Cancelled, Toxic Granulation Cancelled, Toxic Vacuolation Cancelled, Dohle Bodies Cancelled, Starla Rods Cancelled, Platelet Estimate Cancelled, Plt Morphology Comment Cancelled, RBC Morphology Cancelled, Polychromasia Cancelled, Hypochromasia Cancelled, Poikilocytosis Cancelled, Basophilic Stippling Cancelled, Anisocytosis Cancelled, Microcytosis Cancelled, Macrocytosis Cancelled, Spherocytes Cancelled, Sickle Cells Cancelled, Target Cells Cancelled, Tear Drop Cells Cancelled, Ovalocytes Cancelled, Stomatocytes Cancelled, Mitchell-Cygnet Bodies Cancelled, Arron Cells Cancelled, Bite Cells Cancelled, Crenated Cell Cancelled, Acanthocytes (Spur) Cancelled, Rouleaux Cancelled, Schistocytes Cancelled 05/06/20 13:35: PT Cancelled, INR Cancelled, APTT Cancelled 05/06/20 13:35: Sodium Cancelled, Potassium Cancelled, Chloride Cancelled, Carbon Dioxide Cancelled, Anion Gap Cancelled, BUN Cancelled, Creatinine Cancelled, Estim Creat Clear Calc Cancelled, Est GFR (MDRD) Af Amer Cancelled, Est GFR (MDRD) Non-Af Cancelled, BUN/Creatinine Ratio Cancelled, Glucose Cancelled, Calcium Cancelled, Total Bilirubin Cancelled, AST Cancelled, ALT Cancelled, Alkaline Phosphatase Cancelled, Troponin I Cancelled, Total Protein Cancelled, Albumin Cancelled, Globulin Cancelled, Albumin/Globulin Ratio Cancelled 05/06/20 13:35: Lactic Acid Cancelled 05/06/20 13:35: B-Natriuretic Peptide Cancelled 05/06/20 13:55: Urine Color Yellow, Urine Clarity Clear, Urine pH 6.0, Ur Specific Mary Alice 1.015, Urine Protein Negative, Urine Glucose (UA) Normal, Urine Ketones Negative, Urine Occult Blood 10 H, Urine Nitrite Negative, Urine Bilirubin Negative, Urine Urobilinogen Normal, Ur Leukocyte Esterase 100 H, Urine RBC 0 SEEN, Urine WBC 5-10 SEEN, Ur Squamous Epith Cells 0-5 SEEN, Urine Bacteria 0 SEEN, Hyaline Casts 0-5 SEEN, Urine Mucus 0 SEEN 05/06/20 14:02: PT 17.6 H, INR 1.5, APTT 44.1 H 05/06/20 14:02: Lactic Acid 1.1 05/06/20 14:02: Sodium 139, Potassium 5.1, Chloride 100, Carbon Dioxide 38.0 H, Anion Gap 1 L, BUN 16, Creatinine 0.73, Estim Creat Clear Calc 84.68, Est GFR (MDRD) Af Amer 107, Est GFR (MDRD) Non-Af 88, BUN/Creatinine Ratio 22.0 H, Glucose 145 H, Calcium 8.6, Total Bilirubin 0.30, AST 17, ALT 10 L, Alkaline Phosphatase 108, Troponin I < 0.015, Total Protein 6.4, Albumin 2.4 L, Globulin 4.0, Albumin/Globulin Ratio 0.6 L 05/06/20 14:02: WBC 9.0, RBC 3.22 L, Hgb 8.5 L, Hct 30.9 L, MCV 96.0, MCH 26.4 L, MCHC 27.5 L, RDW Std Deviation 66.7 H, RDW Coeff of Shannan 18.9 H, Plt Count 304, MPV 12.0, Immature Gran % (Auto) 1.300 H, Neut % (Auto) 78.1 H, Lymph % (Auto) 11.8 L, [place] % (Auto) 7.0, Eos % (Auto) 1.0, Baso % (Auto) 0.8, Absolute Neuts (auto) 7.0, Absolute Lymphs (auto) 1.06, Nucleated RBC % 0.2, Differential Comment SCANNED, Polychromasia RARE, Hypochromasia 3+, Anisocytosis 3+, Schistocytes RARE 05/06/20 14:02: B-Natriuretic Peptide 387.4 H 05/06/20 14:18: Specimen Type ART, Sample Site L Radial, pH 7.30 L, Bicarbonate Actual 38.8 H, Total CO2 41, Base Excess 12 H, O2 Saturation 85 L, O2 % 40, ABG pCO2 79.9 H*, ABG pO2 59 L, David Test Positive, O2 Delivery Device BiPAP, Vent Mode BiLevel Current Medications Acetaminophen (Acetaminophen 325 Mg Tablet) 650 mg PO Q6H PRN PRN PRN Reason: Pain Score 1-10/Temp > 100.7 F Apixaban (Apixaban 5 Mg Tablet) 5 mg PO BID COUNTS INCLUDE 234 BEDS AT THE [facility] Last Admin: 05/06/20 19:54 Dose: 5 mg Documented by: Atorvastatin Calcium (Atorvastatin Calcium 40 Mg Tablet) 40 mg PO QHS COUNTS INCLUDE 234 BEDS AT THE [facility] Last Admin: 05/06/20 19:54 Dose: 40 mg Documented by: Calamine/Phenol (Menthol/Lanolin/Calamine/Znox 113 Gm Tube) 1 applic TOPICAL 4X/DAY MANOJ; Protocol Diltiazem HCl (Diltiazem Cd 180 Mg Capsule) 180 mg PO DAILY MANOJ Doxepin HCl (Doxepin Hcl 50 Mg Capsule) 50 mg PO QHS COUNTS INCLUDE 234 BEDS AT THE [facility] Last Admin: 05/06/20 19:54 Dose: 50 mg Documented by: Ferrous Sulfate (Ferrous Sulfate 325 Mg Tablet) 325 mg PO DAILYCM COUNTS INCLUDE 234 BEDS AT THE [facility] Fluoxetine HCl (Fluoxetine 20 Mg Capsule) 60 mg PO DAILY COUNTS INCLUDE 234 BEDS AT THE [facility] Gabapentin (Gabapentin 300 Mg Capsule) 300 mg PO TIDCM COUNTS INCLUDE 234 BEDS AT THE [facility] Levothyroxine Sodium (Levothyroxine 50 Mcg Tablet) 50 mcg PO DAILY@0600 COUNTS INCLUDE 234 BEDS AT THE [facility] Melatonin (Melatonin 3 Mg Tablet) 3 mg PO QHS PRN PRN PRN Reason: INSOMNIA Metoprolol Tartrate (Metoprolol Tartrate 25 Mg Tablet) 25 mg PO BID COUNTS INCLUDE 234 BEDS AT THE [facility] Ondansetron HCl (Ondansetron 4 Mg/2 Ml Vial) 4 mg IV Q8H PRN PRN PRN Reason: NAUSEA/VOMITING Addendum: Dr. Enciso I personally examined the patient and reviewed the chart. I agree with the above. 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 She states that she told the custodial staff that she was feeling more short of breath, she does wear 4 L of nasal cannula daily however they said that because her CPAP order was for at bedtime she could not wear it in the afternoon. She was later transferred to the hospital with shortness of breath and a PCO2 on ABG of 79.9, as well as a 78% on 4 L nasal cannula. She was placed on BiPAP and started feeling immediately better. She did have an elevated BNP indicative of heart failure especially with a right pleural effusion on chest x-ray. She does have a history of pulmonary hypertension as well as diastolic CHF, currently in exacerbation. Of note this time last year she was 305 and now she is 340 pounds so she does feel that she has gained weight and has noticed some tightness in her hands. We will place her on IV Lasix twice daily. Inpatient E&M: 48088 Init Hosp L3
--- NOTE | 2020-05-06 17:46 | ECHOD_ITS ---
Reason For Study: CHF Procedure This was a 2D Doppler, Color Flow transthoracic echocardiogram. Exam performed portable in ICU/CCU. Left Ventricle Normal LV size. The estimated ejection fraction is 55 %. No evidence for diastolic dysfunction. No regional wall motion abnormalities noted. Right Ventricle Mildly dilated right ventricle. Normal systolic function. Atria The left atrium is mildly enlarged. The right atrium is mildly enlarged. No doppler evidence for ASD. Mitral Valve There is no mitral valve stenosis. Trivial mitral valve insufficiency. Tricuspid Valve There is no tricuspid stenosis. Trivial tricuspid valve insufficiency. Unable to estimate RV systolic pressure due to insufficient tricuspid regurgitant envelope. Aortic Valve Trisinus/trileaflet aortic valve. There is no aortic stenosis. No aortic valve insufficiency. Pulmonic Valve There is no pulmonic valvular stenosis. Trivial pulmonic valve insufficiency. Great Vessels Normal aortic root. Pericardium/Pleural No pericardial effusion. MMode/2D Measurements & Calculations LVIDd: 5.0 cm IVSd: 1.1 cm Ao root diam: 3.6 cm LVIDs: 3.4 cm LVPWd: 1.5 cm FS: 32.1 % LAV(MOD-bp): 86.4 ml LA A4 area: 26.1 cm2 LA dimension(2D): 5.1 cm LAV(MOD-bp) Indexed: 33.6 ml/m2 LAV(MOD-sp2): 86.9 ml LAV(MOD-sp4): 86.9 ml Doppler Measurements & Calculations MV E max long: 119.5 cm/sec Lat Peak E' Long: 15.5 cm/sec Med Peak E' Long: 8.1 cm/sec MV A max long: 42.6 cm/sec E/E' lat: 7.7 E/E' med: 14.8 MV E/A: 2.8 Ao V2 max: 147.7 cm/sec LV V1 max: 109.2 cm/sec PA V2 max: 95.2 cm/sec Ao max P.7 mmHg LV V1 max P.8 mmHg TR max long: 277.0 cm/sec TR max P.7 mmHg Interpretation Summary The estimated ejection fraction is 55 %. No evidence for diastolic dysfunction. The left atrium is mildly enlarged. The right atrium is mildly enlarged. Trivial mitral valve insufficiency. Mildly dilated right ventricle. Ordering Physician: Rebecca Castellano Referring Physician: Nabor Garcia Chi Performed By: Tarsha Bain, MARIEL, RVT
--- NOTE | 2020-05-06 18:14 | PCS.PANDOC ---
PANDEMIC DOCUMENTATION INITIATED: Date: 05/06/20 Time: 9532
[2020-05-06] MEDS: Atorvastatin Calcium 40 MG Tablet PO (19:54)
[2020-05-06] MEDS: APIXABAN 5 MG TABLET PO (19:54)
[2020-05-06] MEDS: DOXEPIN HCL 50 MG CAPSULE PO (19:54)
[2020-05-06] MEDS: Menthol/Lanolin/Calamine/Znox 113 GM Tube 1 APPLIC TOPICAL (21:26)
--- NOTE | 2020-05-06 23:19 | NURSING ---
Pt.'s sats down to 83% on 40% bipap. Increased to 45%, sats went down to 79%. Increased to 50%, sats slowly up to 89%. Will monitor.
[2020-05-07] VITALS (32 sets, daily range): BP systolic 82–112; BP diastolic 55–78; PULSE 70–106; RESP 12–28; TEMP 36.2–37.7; O2SAT 86–100
[2020-05-07 03:27] LABS: Absolute Lymphocyte Count 0.62 X10^3/uL (0.83-4.51); Absolute Neutrophil Count 4.8 X10^3/uL (2.0-7.7); Basophil# 0.02 X10^3/uL; Basophil% 0.4 % (0-1); Hemoglobin 8.1 g/dL (12.0-15.0); Lymphocyte # 0.62 X10^3/ul (4.0); Lymphocyte % 11.2 % (19-41); Mean Corp Hgb Conc 27.9 g/dL (32-36); Mean Corpuscular Hgb 26.2 pg (27.0-32.0); Mean Corpuscular Volume 93.9 fL (81-99); Mean Platelet Vol. 11.1 fl (6.2-12.0); Monocyte# 0.07 X10^3/uL; Monocyte% 1.3 % (0-10); NRBC Flagged by Analyzer 0 % (0-5); Neutrophil # 4.76 X10^3/uL (2.7-7.7); Neutrophil % 85.7 % (47-70); Platelet Count 234 K/mm3 (150-450); RBC Distribution Width CV 18.8 % (11.6-14.6); RBC Distribution Width SD 64.4 fl (35.1-43.9); Red Blood Count 3.09 M/mm3 (4.2-5.4); White Blood Count 5.6 K/mm3 (4.4-11.0)
[2020-05-07 04:03] LABS: Anion Gap 1 (5-15); BUN 15 mg/dL (7-18); Calcium,Total 8.4 mg/dL (8.5-10.1); Chloride 98 mmol/L (98-107); Creatinine, Serum 0.58 mg/dL (0.55-1.02); EST Glomerular Filtration Rate 115 mL/min (>60); Est Glom Filt Rate - Afr Amer 139 mL/min (>60); Estimated Creatinine Clearance 106.58 ml/min; Glucose 159 mg/dL (74-106); Potassium 4.4 mmol/L (3.5-5.1); Sodium Level 138 mmol/L (136-145)
[2020-05-07] MEDS: Levothyroxine 50 MCG Tablet PO (05:14)
[2020-05-07] MEDS: 0.9% Saline Lock 10 ML Syringe IV ×3 (05:17→18:24)
--- NOTE | 2020-05-07 07:11 | PCM.PN.HOSP ---
Patient Problems: Active and Suspected Problems (Last Reviewed 02/10/20 @ 16:[address] Benedicto Davis MD) Frequent falls (Acute) Reason for Visit: Acute hypoxic and hypercapnic respiratory failure Subjective: Patient is a 54-year-old female admitted with progressive shortness of breath and assessment of acute on chronic hypoxic and hypercapnic respiratory failure made admitted to monitored bed for further management Objective: GENERAL: cooperative HEENT: Atraumatic; EYES; Anicteric, Normal Conjunctiva NECK; supple, normal thyroid, RESPIRATORY: Diminished to auscultation CARDIOVASCULAR: Regular S1 S2, GI: soft, normoactive bowel sounds, : No Renal angle tenderness; EXTREMITIES: No edema, no clubbing, MUSCULOSKELETAL: no muscle waisting NEURO: Awake; no lateralizing signs. SKIN: No Rash PSYCH; Flat affect Vitals/I&O's: Vital Signs Temp Pulse Resp BP Pulse Ox 97.7 F L 76 15 82/59 L 100 05/07/20 07:00 05/07/20 07:00 05/07/20 07:00 05/07/20 07:00 05/07/20 07:00 Oxygen Flow Rate (L/min) 5 Oxygen Delivery Method Bi-pap Weight: 152.906 kg Body Mass Index (BMI) 53.4 Finger Stick Blood Glucose 155 Intake and Output for Last 24 Hours 05/05/20 05/06/20 05/07/20 23:59 23:59 23:59 Intake Total 250 / 250 100 / 100 Output Total 1600 / 1600 150 / 150 Balance -1350 / -1350 -50 / -50 Laboratory Results 05/06/20 13:35: WBC Cancelled, Corrected WBC Cancelled, RBC Cancelled, Hgb Cancelled, Hct Cancelled, MCV Cancelled, MCH Cancelled, MCHC Cancelled, RDW Std Deviation Cancelled, RDW Coeff of Shannan Cancelled, Plt Count Cancelled, MPV Cancelled, Immature Gran % (Auto) Cancelled, Neut % (Auto) Cancelled, Lymph % (Auto) Cancelled, Banner % (Auto) Cancelled, Eos % (Auto) Cancelled, Baso % (Auto) Cancelled, Absolute Neuts (auto) Cancelled, Absolute Lymphs (auto) Cancelled, Total Counted Cancelled, Neutrophils % (Manual) Cancelled, Band Neutrophils % Cancelled, Lymphocytes % (Manual) Cancelled, Monocytes % (Manual) Cancelled, Eosinophils % (Manual) Cancelled, Basophils % (Manual) Cancelled, Metamyelocytes % Cancelled, Myelocytes % Cancelled, Promyelocytes % Cancelled, Blast Cells % Cancelled, Plasma Cell % (Manual) Cancelled, Other Cells % Cancelled, Nucleated RBC % Cancelled, Nucleated RBCs/100 WBC Cancelled, Differential Comment Cancelled, Diff Path Review Cancelled, Hypersegmented Neuts Cancelled, Atypical Lymphocytes Cancelled, Reactive Lymphocytes Cancelled, Smudge Cells Cancelled, Toxic Granulation Cancelled, Toxic Vacuolation Cancelled, Dohle Bodies Cancelled, Starla Rods Cancelled, Platelet Estimate Cancelled, Plt Morphology Comment Cancelled, RBC Morphology Cancelled, Polychromasia Cancelled, Hypochromasia Cancelled, Poikilocytosis Cancelled, Basophilic Stippling Cancelled, Anisocytosis Cancelled, Microcytosis Cancelled, Macrocytosis Cancelled, Spherocytes Cancelled, Sickle Cells Cancelled, Target Cells Cancelled, Tear Drop Cells Cancelled, Ovalocytes Cancelled, Stomatocytes Cancelled, Mitchell-Bettendorf Bodies Cancelled, Arron Cells Cancelled, Bite Cells Cancelled, Crenated Cell Cancelled, Acanthocytes (Spur) Cancelled, Rouleaux Cancelled, Schistocytes Cancelled 05/06/20 13:35: PT Cancelled, INR Cancelled, APTT Cancelled 05/06/20 13:35: Sodium Cancelled, Potassium Cancelled, Chloride Cancelled, Carbon Dioxide Cancelled, Anion Gap Cancelled, BUN Cancelled, Creatinine Cancelled, Estim Creat Clear Calc Cancelled, Est GFR (MDRD) Af Amer Cancelled, Est GFR (MDRD) Non-Af Cancelled, BUN/Creatinine Ratio Cancelled, Glucose Cancelled, Calcium Cancelled, Total Bilirubin Cancelled, AST Cancelled, ALT Cancelled, Alkaline Phosphatase Cancelled, Troponin I Cancelled, Total Protein Cancelled, Albumin Cancelled, Globulin Cancelled, Albumin/Globulin Ratio Cancelled 05/06/20 13:35: Lactic Acid Cancelled 05/06/20 13:35: B-Natriuretic Peptide Cancelled 05/06/20 13:55: Urine Color Yellow, Urine Clarity Clear, Urine pH 6.0, Ur Specific [place] 1.015, Urine Protein Negative, Urine Glucose (UA) Normal, Urine Ketones Negative, Urine Occult Blood 10 H, Urine Nitrite Negative, Urine Bilirubin Negative, Urine Urobilinogen Normal, Ur Leukocyte Esterase 100 H, Urine RBC 0 SEEN, Urine WBC 5-10 SEEN, Ur Squamous Epith Cells 0-5 SEEN, Urine Bacteria 0 SEEN, Hyaline Casts 0-5 SEEN, Urine Mucus 0 SEEN 05/06/20 14:02: PT 17.6 H, INR 1.5, APTT 44.1 H 05/06/20 14:02: Lactic Acid 1.1 05/06/20 14:02: Sodium 139, Potassium 5.1, Chloride 100, Carbon Dioxide 38.0 H, Anion Gap 1 L, BUN 16, Creatinine 0.73, Estim Creat Clear Calc 84.68, Est GFR (MDRD) Af Amer 107, Est GFR (MDRD) Non-Af 88, BUN/Creatinine Ratio 22.0 H, Glucose 145 H, Calcium 8.6, Total Bilirubin 0.30, AST 17, ALT 10 L, Alkaline Phosphatase 108, Troponin I < 0.015, Total Protein 6.4, Albumin 2.4 L, Globulin 4.0, Albumin/Globulin Ratio 0.6 L 05/06/20 14:02: WBC 9.0, RBC 3.22 L, Hgb 8.5 L, Hct 30.9 L, MCV 96.0, MCH 26.4 L, MCHC 27.5 L, RDW Std Deviation 66.7 H, RDW Coeff of Shannan 18.9 H, Plt Count 304, MPV 12.0, Immature Gran % (Auto) 1.300 H, Neut % (Auto) 78.1 H, Lymph % (Auto) 11.8 L, Banner % (Auto) 7.0, Eos % (Auto) 1.0, Baso % (Auto) 0.8, Absolute Neuts (auto) 7.0, Absolute Lymphs (auto) 1.06, Nucleated RBC % 0.2, Differential Comment SCANNED, Polychromasia RARE, Hypochromasia 3+, Anisocytosis 3+, Schistocytes RARE 05/06/20 14:02: B-Natriuretic Peptide 387.4 H 05/06/20 14:18: Specimen Type ART, Sample Site L Radial, pH 7.30 L, Bicarbonate Actual 38.8 H, Total CO2 41, Base Excess 12 H, O2 Saturation 85 L, O2 % 40, ABG pCO2 79.9 H*, ABG pO2 59 L, David Test Positive, O2 Delivery Device BiPAP, Vent Mode BiLevel 05/07/20 03:15: WBC 5.6, RBC 3.09 L, Hgb 8.1 L, Hct 29.0 L, MCV 93.9, MCH 26.2 L, MCHC 27.9 L, RDW Std Deviation 64.4 H, RDW Coeff of Shannan 18.8 H, Plt Count 234, MPV 11.1, Immature Gran % (Auto) 1.400 H, Neut % (Auto) 85.7 H, Lymph % (Auto) 11.2 L, Banner % (Auto) 1.3, Eos % (Auto) 0.0, Baso % (Auto) 0.4, Absolute Neuts (auto) 4.8, Absolute Lymphs (auto) 0.62 L, Nucleated RBC % 0 05/07/20 03:15: Sodium 138, Potassium 4.4, Chloride 98, Carbon Dioxide 39.0 H, Anion Gap 1 L, BUN 15, Creatinine 0.58, Estim Creat Clear Calc 106.58, Est GFR (MDRD) Af Amer 139, Est GFR (MDRD) Non-Af 115, BUN/Creatinine Ratio 26.0 H, Glucose 159 H, Calcium 8.4 L Current Medications Acetaminophen (Acetaminophen 325 Mg Tablet) 650 mg PO Q6H PRN PRN PRN Reason: Pain Score 1-10/Temp > 100.7 F Apixaban (Apixaban 5 Mg Tablet) 5 mg PO BID [facility] Last Admin: 05/06/20 19:54 Dose: 5 mg Documented by: Atorvastatin Calcium (Atorvastatin Calcium 40 Mg Tablet) 40 mg PO QHS [facility] Last Admin: 05/06/20 19:54 Dose: 40 mg Documented by: Calamine/Phenol (Menthol/Lanolin/Calamine/Znox 113 Gm Tube) 1 applic TOPICAL 4X/DAY [facility]; Protocol Last Admin: 05/06/20 21:26 Dose: 1 applicatio Documented by: Diltiazem HCl (Diltiazem Cd 180 Mg Capsule) 180 mg PO DAILY [facility] Doxepin HCl (Doxepin Hcl 50 Mg Capsule) 50 mg PO QHS [facility] Last Admin: 05/06/20 19:54 Dose: 50 mg Documented by: Ferrous Sulfate ([facility] 325 Mg Tablet) [facility] Fluoxetine HCl (Fluoxetine 20 Mg Capsule) 60 mg PO DAILY [facility] Furosemide (Furosemide 40 Mg/4 Ml Vial) 40 mg IV BID@1000,1800 [facility] Gabapentin (Gabapentin 300 Mg Capsule) 300 mg PO TIDCM [facility] Levothyroxine Sodium (Levothyroxine 50 Mcg Tablet) 50 mcg PO DAILY@0600 [facility] Last Admin: 05/07/20 05:14 Dose: 50 mcg Documented by: Melatonin (Melatonin 3 Mg Tablet) 3 mg PO QHS PRN PRN PRN Reason: INSOMNIA Metoprolol Tartrate (Metoprolol Tartrate 25 Mg Tablet) 25 mg PO BID [facility] Last Admin: 05/06/20 21:05 Dose: Not Given Documented by: Ondansetron HCl (Ondansetron 4 Mg/2 Ml Vial) 4 mg IV Q8H PRN PRN PRN Reason: NAUSEA/VOMITING Sodium Chloride (0.9% Saline Lock 10 Ml Syringe) 10 - 40 ml IV UD PRN PRN Reason: SALINE FLUSH Last Admin: 05/07/20 05:17 Dose: 10 ml Documented by: STROKE Vital Signs/Narrative: Vital Signs Temp Pulse Resp BP Pulse Ox 05/07/20 07:00 97.7 F L 76 15 82/59 L 100 05/07/20 06:00 97.7 F L 72 23 H 95/61 96 05/07/20 05:00 97.3 F L 77 23 H 103/70 93 05/07/20 04:40 72 18 96 05/07/20 04:00 97.2 F L 74 21 H 84/55 L 94 Medical Necessity - Tobacco Use Smoking Status: Former smoker Assessment/Plan All Active Problems (Last Reviewed 02/10/20 @ 16:[address] Benedicto Davis MD) Frequent falls (Acute) Acute blood loss anemia (Resolved) Hematoma of left lower leg (Resolved) Open wound of left lower leg with complication (Resolved) Skin necrosis (Resolved) Bronchitis (Resolved) Cellulitis (Resolved) Chest pain (Resolved) Dyspnea (Resolved) Hematoma of leg (Resolved) Open wound of right lower leg (Resolved) Pneumonia (Resolved) Pulmonary edema (Resolved) Secondary pulmonary arterial hypertension (Resolved) Sepsis (Resolved) Patient is a 54-year-old female admitted with progressive shortness of breath and assessment of acute on chronic hypoxic and hypercapnic respiratory failure made admitted to monitored bed for further management 1. Acute on chronic hypoxic and hypercapnic respiratory failure ?Multifactorial including CHF, pulmonary hypertension, obesity hypoventilation syndrome obstructive sleep apnea. Patient was placed on noninvasive ventilation BiPAP 2. Acute congestive heart failure ?With preserved ejection fraction (diastolic CHF). Admitted to monitored bed placed on noninvasive ventilation as described above patient was also placed on Lasix, strict input and output, daily weights, daily BMPs and a 2D echo ordered 3. Anemia - Secondary to chronic disorder monitoring H&H and transfuse if patient becomes symptomatic or hemoglobin falls below 7 4. Chronic A. fib ?Rate controlled on metoprolol and Cardizem on systemic anticoagulation with Eliquis 5. This mellitus type II ?Controlled with hemoglobin A1c of 5.9. Oral hypoglycemic agent held, placed on Accu-Cheks before meals and at bedtime with sliding scale coverage 6. Dyslipidemia -Patient is on statin therapy, continued at home dose 7. Hypertension - Blood pressure controlled, home medications continued with dose adjustment as needed 8. Hypothyroidism - Patient is on levothyroxine home dose continued 9. Morbid obesity - With a BMI of 52.8 patient was counseled on weight reduction 10. Chronic kidney disease stage III ?Kidney function stable 11. Pulmonary hypertension 12. COPD ?Aerosol treatments as needed 12. Obstructive sleep apnea ?Patient is on CPAP at home 13. GERD ?Patient is on famotidine 14. History of recent infected left calf hematoma ?Patient underwent I&D, wound cultures grew Proteus. Had a wound VAC which was discontinued on 05/05/2020. Consult placed to wound care nurse 15. DVT prophylaxis ?Eliquis Advance planning; did discuss with the patient regarding advanced directives as well as CODE STATUS. Did explain the various scenarios involved ( FULL CODE, DNR CCA, DNR CCA with no intubation, and DNR CC and what each meant) patient remain full code with CPR and intubation if warranted. Order was placed. Time spent on discussion 18 minutes. Inpatient E&M: 98095 Subs Hosp L3 Procedures: 95218 Advncd Care Plan 30 Min
--- NOTE | 2020-05-07 08:37 | NURSING ---
wound photo: left medial lower leg
[2020-05-07] MEDS: Ferrous Sulfate 325 MG Tablet PO (09:25)
[2020-05-07] MEDS: FLUoxetine 20 MG Capsule 60 MG PO (09:26)
[2020-05-07] MEDS: dilTIAZem CD 180 MG Capsule PO (09:26)
[2020-05-07] MEDS: APIXABAN 5 MG TABLET PO ×2 (09:26→20:47)
[2020-05-07] MEDS: Furosemide 40 MG/4 ML Vial IV ×2 (09:26→18:24)
[2020-05-07] MEDS: Gabapentin 300 MG Capsule PO ×3 (09:26→18:22)
--- NOTE | 2020-05-07 12:10 | PCM.PN.SRG ---
Patient Problems: Active and Suspected Problems (Last Reviewed 02/10/20 @ 16:[address] Benedicto Davis MD) Frequent falls (Acute) Subjective: Resting quietly in bed. - Physical Exam Vitals/I&O's: Vital Signs Temp Pulse Resp BP Pulse Ox 99.3 F H 85 20 H 106/68 91 05/07/20 12:20 05/07/20 12:23 05/07/20 12:20 05/07/20 12:23 05/07/20 12:20 Oxygen Flow Rate (L/min) 6 Oxygen Delivery Method Nasal Cannula Weight: 337 lb 1.6 oz Body Mass Index (BMI) 53.4 Finger Stick Blood Glucose 155 Intake and Output for Last 24 Hours 05/05/20 05/06/20 05/07/20 23:59 23:59 23:59 Intake Total 250 / 250 600 / 600 Output Total 1600 / 1600 700 / 700 Balance -1350 / -1350 -100 / -100 General: Alert, Oriented x3, Cooperative HEENT: Atraumatic Oral: Moist Mucosa Lungs: Normal air movement Cardiovascular: Regular rate Abdomen: Obese Extremities: Edema, Peripheral Pulses Normal Skin: Ulcer/ Wound - Left medial lower leg ulcer dressing dry and intact. LAZARO wrap in place. Phote viewed from Wound nurse and the ulcer is beefy pink with good granulation tissue. Musculoskeletal: No Tenderness to Palpation of Joints or Extremities Neurological: Cranial nerves II-XII grossly intact Psych/Mental Status: Normal Affect, Appropriate Laboratory Results 05/06/20 13:35: WBC Cancelled, Corrected WBC Cancelled, RBC Cancelled, Hgb Cancelled, Hct Cancelled, MCV Cancelled, MCH Cancelled, MCHC Cancelled, RDW Std Deviation Cancelled, RDW Coeff of Shannan Cancelled, Plt Count Cancelled, MPV Cancelled, Immature Gran % (Auto) Cancelled, Neut % (Auto) Cancelled, Lymph % (Auto) Cancelled, Summers % (Auto) Cancelled, Eos % (Auto) Cancelled, Baso % (Auto) Cancelled, Absolute Neuts (auto) Cancelled, Absolute Lymphs (auto) Cancelled, Total Counted Cancelled, Neutrophils % (Manual) Cancelled, Band Neutrophils % Cancelled, Lymphocytes % (Manual) Cancelled, Monocytes % (Manual) Cancelled, Eosinophils % (Manual) Cancelled, Basophils % (Manual) Cancelled, Metamyelocytes % Cancelled, Myelocytes % Cancelled, Promyelocytes % Cancelled, Blast Cells % Cancelled, Plasma Cell % (Manual) Cancelled, Other Cells % Cancelled, Nucleated RBC % Cancelled, Nucleated RBCs/100 WBC Cancelled, Differential Comment Cancelled, Diff Path Review Cancelled, Hypersegmented Neuts Cancelled, Atypical Lymphocytes Cancelled, Reactive Lymphocytes Cancelled, Smudge Cells Cancelled, Toxic Granulation Cancelled, Toxic Vacuolation Cancelled, Dohle Bodies Cancelled, Starla Rods Cancelled, Platelet Estimate Cancelled, Plt Morphology Comment Cancelled, RBC Morphology Cancelled, Polychromasia Cancelled, Hypochromasia Cancelled, Poikilocytosis Cancelled, Basophilic Stippling Cancelled, Anisocytosis Cancelled, Microcytosis Cancelled, Macrocytosis Cancelled, Spherocytes Cancelled, Sickle Cells Cancelled, Target Cells Cancelled, Tear Drop Cells Cancelled, Ovalocytes Cancelled, Stomatocytes Cancelled, Mitchell-Staley Bodies Cancelled, Malone Cells Cancelled, Bite Cells Cancelled, Crenated Cell Cancelled, Acanthocytes (Spur) Cancelled, Rouleaux Cancelled, Schistocytes Cancelled 05/06/20 13:35: PT Cancelled, INR Cancelled, APTT Cancelled 05/06/20 13:35: Sodium Cancelled, Potassium Cancelled, Chloride Cancelled, Carbon Dioxide Cancelled, Anion Gap Cancelled, BUN Cancelled, Creatinine Cancelled, Estim Creat Clear Calc Cancelled, Est GFR (MDRD) Af Amer Cancelled, Est GFR (MDRD) Non-Af Cancelled, BUN/Creatinine Ratio Cancelled, Glucose Cancelled, Calcium Cancelled, Total Bilirubin Cancelled, AST Cancelled, ALT Cancelled, Alkaline Phosphatase Cancelled, Troponin I Cancelled, Total Protein Cancelled, Albumin Cancelled, Globulin Cancelled, Albumin/Globulin Ratio Cancelled 05/06/20 13:35: Lactic Acid Cancelled 05/06/20 13:35: B-Natriuretic Peptide Cancelled 05/06/20 13:55: Urine Color Yellow, Urine Clarity Clear, Urine pH 6.0, Ur Specific [place] 1.015, Urine Protein Negative, Urine Glucose (UA) Normal, Urine Ketones Negative, Urine Occult Blood 10 H, Urine Nitrite Negative, Urine Bilirubin Negative, Urine Urobilinogen Normal, Ur Leukocyte Esterase 100 H, Urine RBC 0 SEEN, Urine WBC 5-10 SEEN, Ur Squamous Epith Cells 0-5 SEEN, Urine Bacteria 0 SEEN, Hyaline Casts 0-5 SEEN, Urine Mucus 0 SEEN 05/06/20 14:02: PT 17.6 H, INR 1.5, APTT 44.1 H 05/06/20 14:02: Lactic Acid 1.1 05/06/20 14:02: Sodium 139, Potassium 5.1, Chloride 100, Carbon Dioxide 38.0 H, Anion Gap 1 L, BUN 16, Creatinine 0.73, Estim Creat Clear Calc 84.68, Est GFR (MDRD) Af Amer 107, Est GFR (MDRD) Non-Af 88, BUN/Creatinine Ratio 22.0 H, Glucose 145 H, Calcium 8.6, Total Bilirubin 0.30, AST 17, ALT 10 L, Alkaline Phosphatase 108, Troponin I < 0.015, Total Protein 6.4, Albumin 2.4 L, Globulin 4.0, Albumin/Globulin Ratio 0.6 L 05/06/20 14:02: WBC 9.0, RBC 3.22 L, Hgb 8.5 L, Hct 30.9 L, MCV 96.0, MCH 26.4 L, MCHC 27.5 L, RDW Std Deviation 66.7 H, RDW Coeff of Shannan 18.9 H, Plt Count 304, MPV 12.0, Immature Gran % (Auto) 1.300 H, Neut % (Auto) 78.1 H, Lymph % (Auto) 11.8 L, Summers % (Auto) 7.0, Eos % (Auto) 1.0, Baso % (Auto) 0.8, Absolute Neuts (auto) 7.0, Absolute Lymphs (auto) 1.06, Nucleated RBC % 0.2, Differential Comment SCANNED, Polychromasia RARE, Hypochromasia 3+, Anisocytosis 3+, Schistocytes RARE 05/06/20 14:02: B-Natriuretic Peptide 387.4 H 05/06/20 14:18: Specimen Type ART, Sample Site L Radial, pH 7.30 L, Bicarbonate Actual 38.8 H, Total CO2 41, Base Excess 12 H, O2 Saturation 85 L, O2 % 40, ABG pCO2 79.9 H*, ABG pO2 59 L, David Test Positive, O2 Delivery Device BiPAP, Vent Mode BiLevel 05/07/20 03:15: WBC 5.6, RBC 3.09 L, Hgb 8.1 L, Hct 29.0 L, MCV 93.9, MCH 26.2 L, MCHC 27.9 L, RDW Std Deviation 64.4 H, RDW Coeff of Shannan 18.8 H, Plt Count 234, MPV 11.1, Immature Gran % (Auto) 1.400 H, Neut % (Auto) 85.7 H, Lymph % (Auto) 11.2 L, Summers % (Auto) 1.3, Eos % (Auto) 0.0, Baso % (Auto) 0.4, Absolute Neuts (auto) 4.8, Absolute Lymphs (auto) 0.62 L, Nucleated RBC % 0 05/07/20 03:15: Sodium 138, Potassium 4.4, Chloride 98, Carbon Dioxide 39.0 H, Anion Gap 1 L, BUN 15, Creatinine 0.58, Estim Creat Clear Calc 106.58, Est GFR (MDRD) Af Amer 139, Est GFR (MDRD) Non-Af 115, BUN/Creatinine Ratio 26.0 H, Glucose 159 H, Calcium 8.4 L Current Medications Acetaminophen (Acetaminophen 325 Mg Tablet) 650 mg PO Q6H PRN PRN PRN Reason: Pain Score 1-10/Temp > 100.7 F Apixaban (Apixaban 5 Mg Tablet) 5 mg PO BID [facility] Last Admin: 05/07/20 09:26 Dose: 5 mg Documented by: Atorvastatin Calcium (Atorvastatin Calcium 40 Mg Tablet) 40 mg PO QHS [facility] Last Admin: 05/06/20 19:54 Dose: 40 mg Documented by: Calamine/Phenol (Menthol/Lanolin/Calamine/Znox 113 Gm Tube) 1 applic TOPICAL 4X/DAY [facility]; Protocol Last Admin: 05/07/20 12:23 Dose: 1 applicatio Documented by: Diltiazem HCl (Diltiazem Cd 180 Mg Capsule) 180 mg PO DAILY [facility] Last Admin: 05/07/20 09:26 Dose: 180 mg Documented by: Doxepin HCl (Doxepin Hcl 50 Mg Capsule) 50 mg PO QHS [facility] Last Admin: 05/06/20 19:54 Dose: 50 mg Documented by: Ferrous Sulfate (Ferrous Sulfate 325 Mg Tablet) 325 mg PO DAILYCM [facility] Last Admin: 05/07/20 09:25 Dose: 325 mg Documented by: Fluoxetine HCl (Fluoxetine 20 Mg Capsule) 60 mg PO DAILY [facility] Last Admin: 05/07/20 09:26 Dose: 60 mg Documented by: Furosemide (Furosemide 40 Mg/4 Ml Vial) 40 mg IV BID@1000,1800 [facility] Last Admin: 05/07/20 09:26 Dose: 40 mg Documented by: Gabapentin (Gabapentin 300 Mg Capsule) 300 mg PO TIDCM [facility] Last Admin: 05/07/20 12:24 Dose: 300 mg Documented by: Levothyroxine Sodium (Levothyroxine 50 Mcg Tablet) 50 mcg PO DAILY@0600 [facility] Last Admin: 05/07/20 05:14 Dose: 50 mcg Documented by: Melatonin (Melatonin 3 Mg Tablet) 3 mg PO QHS PRN PRN PRN Reason: INSOMNIA Metoprolol Tartrate (Metoprolol Tartrate 25 Mg Tablet) 25 mg PO BID [facility] Last Admin: 05/07/20 12:23 Dose: 25 mg Documented by: Nutritional Formula (Lactose Free) (Glucerna Shake 120 Ml Liquid) 120 ml PO 4X/DAY [facility] Last Admin: 05/07/20 12:27 Dose: 120 ml Documented by: Nystatin (Nystatin Powder 15gm Bottle) 1 applic TOPICAL TID [facility]; Protocol Last Admin: 05/07/20 12:24 Dose: 1 applic Documented by: Ondansetron HCl (Ondansetron 4 Mg/2 Ml Vial) 4 mg IV Q8H PRN PRN PRN Reason: NAUSEA/VOMITING Sodium Chloride (0.9% Saline Lock 10 Ml Syringe) 10 - 40 ml IV UD PRN PRN Reason: SALINE FLUSH Last Admin: 05/07/20 09:26 Dose: 10 ml Documented by: Medical Necessity - Tobacco Use Smoking Status: Former smoker Assessment/Plan All Active Problems (Last Reviewed 02/10/20 @ 16:[address] Benedicto Davis MD) Frequent falls (Acute) Acute blood loss anemia (Resolved) Hematoma of left lower leg (Resolved) Open wound of left lower leg with complication (Resolved) Skin necrosis (Resolved) Bronchitis (Resolved) Cellulitis (Resolved) Chest pain (Resolved) Dyspnea (Resolved) Hematoma of leg (Resolved) Open wound of right lower leg (Resolved) Pneumonia (Resolved) Pulmonary edema (Resolved) Secondary pulmonary arterial hypertension (Resolved) Sepsis (Resolved) 1. Hypoxia and hypercapnic respiratory failure 2. s/p I&D traumatic, painful hematoma of left medial leg 02/13/20 3. Frequent falls 4. snf anticoagulants. Respiratory issue being managed by medicine. Left medial leg ulcer is stable. She had a wound VAC that was discontinued last week because of the improvement in her ulcer. She had been having Dakin's moistened gauze dressing changes daily. Wound care is now daily silver dressing changes due to the drainage she is experiencing. She has an LAZARO wrap on for compression. She was supposed to come to the [facility] Center on 05/10/20, but since she is hospitalized, will cancel that appointment. She can come into the wound center on 05/24/20. She is currently in rehab at [place]. When she is discharged, her wound care can continue as daily silver dressing changes after washing leg/ulcer with soap and water. [id number]: [id number] Global Visit
[2020-05-07] MEDS: Menthol/Lanolin/Calamine/Znox 113 GM Tube 1 APPLIC TOPICAL ×3 (12:23→20:38)
[2020-05-07] MEDS: Metoprolol Tartrate 25 MG Tablet PO ×2 (12:23→20:39)
[2020-05-07] MEDS: Nystatin Powder 15gm Bottle 1 APPLIC TOPICAL ×2 (12:24→20:38)
[2020-05-07] MEDS: Glucerna Shake 120 ML LIQUID PO ×2 (12:27→18:23)
--- NOTE | 2020-05-07 14:26 | CASEMGMT ---
[facility] CM Note: Patient is a assisted resident @ [facility]. Intro role of CM to patient and she is requesting return to [facility] on discharge. -Clinicals faxed to Maty @ [facility] @ . Jaspal SINGHN RN ACM
--- NOTE | 2020-05-07 15:57 | CASEMGMT ---
Social Work SW spoke with Maty at [facility] and pt can return when medically ready. Pt will need a negative covid test within 24 hours of discharge. ELMER Chandler
[2020-05-07] MEDS: Acetaminophen 325 MG Tablet 650 MG PO (20:45)
[2020-05-07] MEDS: DOXEPIN HCL 50 MG CAPSULE PO (20:46)
[2020-05-07] MEDS: Atorvastatin Calcium 40 MG Tablet PO (20:46)
[2020-05-07] MEDS: MELATONIN 3 MG TABLET PO (21:17)
[2020-05-08] VITALS (20 sets, daily range): BP systolic 86–121; BP diastolic 55–81; PULSE 65–92; RESP 12–31; TEMP 36.6–37.3; O2SAT 92–100
[2020-05-08] MEDS: Levothyroxine 50 MCG Tablet PO (06:25)
[2020-05-08] MEDS: Nystatin Powder 15gm Bottle 1 APPLIC TOPICAL ×3 (06:25→22:59)
[2020-05-08 06:26] LABS: Anion Gap 2 (5-15); BUN 24 mg/dL (7-18); BUN/Creat Ratio 33.3 RATIO (10-20); Calcium,Total 8.9 mg/dL (8.5-10.1); Chloride 98 mmol/L (98-107); Creatinine, Serum 0.72 mg/dL (0.55-1.02); EST Glomerular Filtration Rate 89 mL/min (>60); Est Glom Filt Rate - Afr Amer 108 mL/min (>60); Estimated Creatinine Clearance 85.85 ml/min; Glucose 118 mg/dL (74-106); Magnesium 2.5 mg/dL (1.6-2.6); Potassium 3.9 mmol/L (3.5-5.1); Sodium Level 139 mmol/L (136-145)
[2020-05-08 06:39] LABS: Hematocrit 30.5 % (37-47); Hemoglobin 8.4 g/dL (12.0-15.0); Mean Corp Hgb Conc 27.5 g/dL (32-36); Mean Corpuscular Hgb 25.7 pg (27.0-32.0); Mean Corpuscular Volume 93.3 fL (81-99); Mean Platelet Vol. 11.6 fl (6.2-12.0); POSITIVE MORPHOLOGY YES; Platelet Count 256 K/mm3 (150-450); RBC Distribution Width CV 19.5 % (11.6-14.6); RBC Distribution Width SD 66.4 fl (35.1-43.9); Red Blood Count 3.27 M/mm3 (4.2-5.4); White Blood Count 8.3 K/mm3 (4.4-11.0)
[2020-05-08 06:51] LABS: Scan Indicated on CBC? Y/N YES- FLAGS NOTED
[2020-05-08 07:14] LABS: Differential Comment SCANNED
--- NOTE | 2020-05-08 07:22 | PN_ITS ---
Patient Problems: Active and Suspected Problems (Last Reviewed 02/10/20 @ 16:[address] Benedicto Davis MD) Frequent falls (Acute) Reason for Visit: Acute hypoxic and hypercapnic respiratory failure 05/08/2020; Subjective: Patient is a 54-year-old female admitted with progressive shortness of breath and assessment of acute on chronic hypoxic and hypercapnic respiratory failure made admitted to monitored bed for further management Did receive wound cultures obtained from patient at her ECF. Was positive for Pseudomonas sensitivities reviewed patient started on cefepime Objective: GENERAL: cooperative HEENT: Atraumatic; EYES; Anicteric, Normal Conjunctiva NECK; supple, normal thyroid, RESPIRATORY: Diminished to auscultation CARDIOVASCULAR: Regular S1 S2, GI: soft, normoactive bowel sounds, : No Renal angle tenderness; EXTREMITIES: edema, left medial lower leg wound (viewed from picture from wound care nurse), MUSCULOSKELETAL: no muscle waisting NEURO: Awake; no lateralizing signs. SKIN: No Rash PSYCH; Flat affect Vitals/I&O's: Vital Signs Temp Pulse Resp BP Pulse Ox 97.8 F 65 21 H 92/66 100 05/08/20 06:00 05/08/20 06:00 05/08/20 06:00 05/08/20 06:00 05/08/20 06:00 Oxygen Flow Rate (L/min) 5 Oxygen Delivery Method Nasal Cannula Weight: 154.902 kg Body Mass Index (BMI) 53.4 Finger Stick Blood Glucose 155 Intake and Output for Last 24 Hours 05/06/20 05/07/20 05/08/20 23:59 23:59 23:59 Intake Total 250 / 250 1170 / 1650 630 / 630 Output Total 1600 / 1600 800 / 1350 750 / 750 Balance -1350 / -1350 370 / 300 -120 / -120 Laboratory Results 05/08/20 06:05: WBC Cancelled, Corrected WBC Cancelled, RBC Cancelled, Hgb Cancelled, Hct Cancelled, MCV Cancelled, MCH Cancelled, MCHC Cancelled, RDW Std Deviation Cancelled, RDW Coeff of Shannan Cancelled, Plt Count Cancelled, MPV Cancelled, Diff Path Review Cancelled 05/08/20 06:05: Sodium 139, Potassium 3.9, Chloride 98, Carbon Dioxide 39.0 H, Anion Gap 2 L, BUN 24 H, Creatinine 0.72, Estim Creat Clear Calc 85.85, Est GFR (MDRD) Af Amer 108, Est GFR (MDRD) Non-Af 89, BUN/Creatinine Ratio 33.3 H, Glucose 118 H, Calcium 8.9, Magnesium 2.5 05/08/20 06:30: WBC 8.3, RBC 3.27 L, Hgb 8.4 L, Hct 30.5 L, MCV 93.3, MCH 25.7 L , MCHC 27.5 L, RDW Std Deviation 66.4 H, RDW Coeff of Shannan 19.5 H, Plt Count 256, MPV 11.6, Differential Comment SCANNED Current Medications Acetaminophen (Acetaminophen 325 Mg Tablet) 650 mg PO Q6H PRN PRN PRN Reason: Pain Score 1-10/Temp > 100.7 F Last Admin: 05/07/20 20:45 Dose: 650 mg Documented by: Apixaban (Apixaban 5 Mg Tablet) 5 mg PO BID [facility] Last Admin: 05/07/20 20:47 Dose: 5 mg Documented by: Atorvastatin Calcium (Atorvastatin Calcium 40 Mg Tablet) 40 mg PO QHS [facility] Last Admin: 05/07/20 20:46 Dose: 40 mg Documented by: Calamine/Phenol (Menthol/Lanolin/Calamine/Znox 113 Gm Tube) 1 applic TOPICAL 4X/DAY [facility]; Protocol Last Admin: 05/07/20 20:38 Dose: 1 applicatio Documented by: Diltiazem HCl (Diltiazem Cd 180 Mg Capsule) 180 mg PO DAILY [facility] Last Admin: 05/07/20 09:26 Dose: 180 mg Documented by: Doxepin HCl (Doxepin Hcl 50 Mg Capsule) 50 mg PO QHS [facility] Last Admin: 05/07/20 20:46 Dose: 50 mg Documented by: Ferrous Sulfate (Ferrous Sulfate 325 Mg Tablet) 325 mg PO DAILYCM [facility] Last Admin: 05/07/20 09:25 Dose: 325 mg Documented by: Fluoxetine HCl (Fluoxetine 20 Mg Capsule) 60 mg PO DAILY [facility] Last Admin: 05/07/20 09:26 Dose: 60 mg Documented by: Furosemide (Furosemide 40 Mg/4 Ml Vial) 40 mg IV BID@1000,1800 [facility] Last Admin: 05/07/20 18:24 Dose: 40 mg Documented by: Gabapentin (Gabapentin 300 Mg Capsule) 300 mg PO TIDCM [facility] Last Admin: 05/07/20 18:22 Dose: 300 mg Documented by: Cefepime HCl 1 gm/ Sodium (Chloride) 50 mls @ 100 mls/hr IV Q8H [facility] Last Infusion: 05/08/20 00:04 Dose: Infused Documented by: Levothyroxine Sodium (Levothyroxine 50 Mcg Tablet) 50 mcg PO DAILY@0600 [facility] Last Admin: 05/08/20 06:25 Dose: 50 mcg Documented by: Melatonin (Melatonin 3 Mg Tablet) 3 mg PO QHS PRN PRN PRN Reason: INSOMNIA Last Admin: 05/07/20 21:17 Dose: 3 mg Documented by: Metoprolol Tartrate (Metoprolol Tartrate 25 Mg Tablet) 25 mg PO BID [facility] Last Admin: 05/07/20 20:39 Dose: 25 mg Documented by: Nutritional Formula (Lactose Free) (Glucerna Shake 120 Ml Liquid) 120 ml PO 4X/DAY [facility] Last Admin: 05/07/20 20:41 Dose: Not Given Documented by: Nystatin (Nystatin Powder 15gm Bottle) 1 applic TOPICAL TID [facility]; Protocol Last Admin: 05/08/20 06:25 Dose: 1 applic Documented by: Ondansetron HCl (Ondansetron 4 Mg/2 Ml Vial) 4 mg IV Q8H PRN PRN PRN Reason: NAUSEA/VOMITING Sodium Chloride (0.9% Saline Lock 10 Ml Syringe) 10 - 40 ml IV UD PRN PRN Reason: SALINE FLUSH Last Admin: 05/07/20 18:24 Dose: 10 ml Documented by: STROKE Vital Signs/Narrative: Vital Signs Temp Pulse Resp BP Pulse Ox 05/08/20 06:00 97.8 F 65 21 H 92/66 100 05/08/20 04:33 65 27 H 95 05/08/20 04:00 97.9 F 68 20 H 86/56 L 96 05/08/20 03:36 70 Medical Necessity - Tobacco Use Smoking Status: Former smoker Assessment/Plan All Active Problems (Last Reviewed 02/10/20 @ 16:[address] Benedicto Davis MD) Frequent falls (Acute) Acute blood loss anemia (Resolved) Hematoma of left lower leg (Resolved) Open wound of left lower leg with complication (Resolved) Skin necrosis (Resolved) Bronchitis (Resolved) Cellulitis (Resolved) Chest pain (Resolved) Dyspnea (Resolved) Hematoma of leg (Resolved) Open wound of right lower leg (Resolved) Pneumonia (Resolved) Pulmonary edema (Resolved) Secondary pulmonary arterial hypertension (Resolved) Sepsis (Resolved) Patient is a 54-year-old female admitted with progressive shortness of breath and assessment of acute on chronic hypoxic and hypercapnic respiratory failure made admitted to monitored bed for further management 1. Acute on chronic hypoxic and hypercapnic respiratory failure ?Multifactorial including CHF, pulmonary hypertension, obesity hypoventilation syndrome obstructive sleep apnea. Patient was placed on noninvasive ventilation BiPAP -05/08/2020; patient weaned from BiPAP currently on high flow oxygen 2. Acute congestive heart failure ?With preserved ejection fraction (diastolic CHF). Admitted to monitored bed placed on noninvasive ventilation as described above patient was also placed on Lasix, strict input and output, daily weights, daily BMPs and a 2D echo ordered 3. Anemia - Secondary to chronic disorder monitoring H&H and transfuse if patient becomes symptomatic or hemoglobin falls below 7 4. Chronic A. fib ?Rate controlled on metoprolol and Cardizem on systemic anticoagulation with Eliquis 5. This mellitus type II ?Controlled with hemoglobin A1c of 5.9. Oral hypoglycemic agent held, placed on Accu-Cheks before meals and at bedtime with sliding scale coverage 6. Dyslipidemia -Patient is on statin therapy, continued at home dose 7. Hypertension - Blood pressure controlled, home medications continued with dose adjustment as needed 8. Hypothyroidism - Patient is on levothyroxine home dose continued 9. Morbid obesity - With a BMI of 52.8 patient was counseled on weight reduction 10. Chronic kidney disease stage III ?Kidney function stable 11. Pulmonary hypertension 12. COPD ?Aerosol treatments as needed 12. Obstructive sleep apnea ?Patient is on CPAP at home 13. GERD ?Patient is on famotidine 14. History of recent infected left calf hematoma ?Patient underwent I&D, wound cultures grew Proteus. Had a wound VAC which was discontinued on 05/05/2020. Consult placed to wound care nurse ?05/08/2020; Did receive wound cultures obtained from patient at her F. Was positive for Pseudomonas sensitivities reviewed patient started on cefepime 15. DVT prophylaxis ?[facility] Inpatient E&M: [id number] [facility] H[facility] L2
[2020-05-08] MEDS: Furosemide 40 MG/4 ML Vial IV ×2 (09:13→16:58)
[2020-05-08] MEDS: FLUoxetine 20 MG Capsule 60 MG PO (09:13)
[2020-05-08] MEDS: APIXABAN 5 MG TABLET PO ×2 (09:14→22:58)
[2020-05-08] MEDS: dilTIAZem CD 180 MG Capsule PO (09:14)
[2020-05-08] MEDS: Gabapentin 300 MG Capsule PO ×3 (09:14→16:56)
[2020-05-08] MEDS: Ferrous Sulfate 325 MG Tablet PO (09:14)
[2020-05-08] MEDS: Menthol/Lanolin/Calamine/Znox 113 GM Tube 1 APPLIC TOPICAL ×3 (09:34→22:57)
[2020-05-08] MEDS: Glucerna Shake 120 ML LIQUID PO ×4 (09:35→23:21)
--- NOTE | 2020-05-08 15:18 | NURSING ---
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
[2020-05-08] MEDS: 0.9% Saline Lock 10 ML Syringe IV (16:57)
[2020-05-08] MEDS: Atorvastatin Calcium 40 MG Tablet PO (22:58)
[2020-05-08] MEDS: Metoprolol Tartrate 25 MG Tablet PO (22:59)
[2020-05-08] MEDS: MELATONIN 3 MG TABLET PO (23:24)
[2020-05-08] MEDS: DOXEPIN HCL 50 MG CAPSULE PO (23:26)
[2020-05-09] VITALS (15 sets, daily range): BP systolic 91–115; BP diastolic 43–63; PULSE 64–89; RESP 12–33; TEMP 36.1–36.6; O2SAT 89–97
--- NOTE | 2020-05-09 02:50 | PCS.PANDOC ---
PANDEMIC DOCUMENTATION INITIATED: Date:05/06/20 Time: 13:24
[2020-05-09 06:41] LABS: Hematocrit 28.9 % (37-47); Mean Corp Hgb Conc 27.7 g/dL (32-36); Mean Corpuscular Hgb 25.8 pg (27.0-32.0); Mean Corpuscular Volume 93.2 fL (81-99); Mean Platelet Vol. 11.8 fl (6.2-12.0); POSITIVE MORPHOLOGY YES; Platelet Count 216 K/mm3 (150-450); RBC Distribution Width CV 19.4 % (11.6-14.6); RBC Distribution Width SD 66.2 fl (35.1-43.9); White Blood Count 7.7 K/mm3 (4.4-11.0)
[2020-05-09] MEDS: Levothyroxine 50 MCG Tablet PO (06:43)
[2020-05-09 06:46] LABS: Scan Indicated on CBC? Y/N YES- FLAGS NOTED
[2020-05-09 07:05] LABS: Anion Gap 4 (5-15); BUN 24 mg/dL (7-18); BUN/Creat Ratio 33.1 RATIO (10-20); Calcium,Total 8.9 mg/dL (8.5-10.1); Chloride 96 mmol/L (98-107); Creatinine, Serum 0.72 mg/dL (0.55-1.02); EST Glomerular Filtration Rate 89 mL/min (>60); Est Glom Filt Rate - Afr Amer 107 mL/min (>60); Estimated Creatinine Clearance 85.85 ml/min; Glucose 111 mg/dL (74-106); Potassium 3.2 mmol/L (3.5-5.1); Sodium Level 140 mmol/L (136-145)
[2020-05-09] MEDS: 0.9% Saline Lock 10 ML Syringe IV ×6 (07:58→23:34)
[2020-05-09] MEDS: Menthol/Lanolin/Calamine/Znox 113 GM Tube 1 APPLIC TOPICAL ×4 (07:58→23:23)
[2020-05-09] MEDS: Ferrous Sulfate 325 MG Tablet PO (07:58)
[2020-05-09] MEDS: Gabapentin 300 MG Capsule PO ×3 (07:58→16:13)
[2020-05-09] MEDS: Glucerna Shake 120 ML LIQUID PO ×3 (08:49→23:38)
[2020-05-09] MEDS: FLUoxetine 20 MG Capsule 60 MG PO (08:50)
[2020-05-09] MEDS: Furosemide 40 MG/4 ML Vial IV ×4 (08:51→23:32)
[2020-05-09] MEDS: APIXABAN 5 MG TABLET PO ×2 (08:51→23:34)
--- NOTE | 2020-05-09 12:08 | PCM.PROGNOTE ---
<Rebecca Castellano PERCUSSION INSTRUMENT REPAIRER - Last Filed: 05/09/20 12:15> Patient Problems: Active and Suspected Problems (Last Reviewed 02/10/20 @ 16:[address] Benedicto Davis MD) Frequent falls (Acute) Subjective: Patient seen and examined. Reports improvement in breathing. States legs are still significantly more swollen than normal. Denies other associated symptoms or complaints. - Physical Exam Vitals/I&O's: Vital Signs Temp Pulse Resp BP Pulse Ox 97.9 F 89 18 101/46 L 95 05/09/20 11:50 05/09/20 11:50 05/09/20 11:50 05/09/20 11:50 05/09/20 11:50 Oxygen Flow Rate (L/min) 7 Oxygen Delivery Method Nasal Cannula Weight: 346 lb 12.594 oz Body Mass Index (BMI) 53.4 Finger Stick Blood Glucose 155 Intake and Output for Last 24 Hours 05/07/20 05/08/20 05/09/20 23:59 23:59 23:59 Intake Total 1170 / 1650 1240 / 1240 50 / 50 Output Total 800 / 1350 1490 / 2090 600 / 600 Balance 370 / 300 -250 / -850 -550 / -550 General: Alert, Oriented x3, Cooperative HEENT: Atraumatic, PERRLA, EOMI, Normocephalic Neck: Supple, No JVD, Negative Carotid Bruits Lungs: Clear to auscultation, Diminished Cardiovascular: - - Atrial fibrillation, rate controlled Abdomen: Bowel Sounds Present, Soft, Non Tender, Non-Distended, Obese Extremities: No clubbing, No cyanosis, Edema - Bilateral lower extremities Skin: No rashes, No breakdown Musculoskeletal: No Tenderness to Palpation of Joints or Extremities Neurological: Cranial nerves II-XII grossly intact, Neuro grossly intact Psych/Mental Status: Normal Affect, Appropriate Microbiology Past 72 Hours 05/06/20 13:55 Urine, Clean Catch Urine Culture - Final Culture exhibits no growth. 05/06/20 13:35 Blood Culture (Wb) - Anticubital Left Blood Culture - Preliminary No growth in 48 hours. 05/06/20 14:02 Blood Culture (Wb) - Anticubital Left Blood Culture - Preliminary No growth in 48 hours. Laboratory Results 05/09/20 06:24: WBC 7.7, RBC 3.10 L, Hgb 8.0 L, Hct 28.9 L, MCV 93.2, MCH 25.8 L, MCHC 27.7 L, RDW Std Deviation 66.2 H, RDW Coeff of Shannan 19.4 H, Plt Count 216, MPV 11.8 05/09/20 06:24: Sodium 140, Potassium 3.2 L, Chloride 96 L, Carbon Dioxide 40.0 H, Anion Gap 4 L, BUN 24 H, Creatinine 0.72, Estim Creat Clear Calc 85.85, Est GFR (MDRD) Af Amer 107, Est GFR (MDRD) Non-Af 89, BUN/Creatinine Ratio 33.1 H, Glucose 111 H, Calcium 8.9 Current Medications Acetaminophen (Acetaminophen 325 Mg Tablet) 650 mg PO Q6H PRN PRN PRN Reason: Pain Score 1-10/Temp > 100.7 F Last Admin: 05/07/20 20:45 Dose: 650 mg Documented by: Apixaban (Apixaban 5 Mg Tablet) 5 mg PO BID [facility] Last Admin: 05/09/20 08:51 Dose: 5 mg Documented by: Atorvastatin Calcium (Atorvastatin Calcium 40 Mg Tablet) 40 mg PO QHS [facility] Last Admin: 05/08/20 22:58 Dose: 40 mg Documented by: Calamine/Phenol (Menthol/Lanolin/Calamine/Znox 113 Gm Tube) 1 applic TOPICAL 4X/DAY [facility]; Protocol Last Admin: 05/09/20 07:58 Dose: 1 applicatio Documented by: Diltiazem HCl (Diltiazem Cd 180 Mg Capsule) 180 mg PO DAILY [facility] Last Admin: 05/09/20 09:57 Dose: Not Given Documented by: Doxepin HCl (Doxepin Hcl 50 Mg Capsule) 50 mg PO QHS [facility] Last Admin: 05/08/20 23:26 Dose: 50 mg Documented by: Ferrous Sulfate ([facility]errous S[facility]ate 325 Mg Tablet) [facility] Last Admin: 05/09/20 07:58 Dose: 325 mg Documented by: Fluoxetine HCl (Fluoxetine 20 Mg Capsule) 60 mg PO DAILY [facility] Last Admin: 05/09/20 08:50 Dose: 60 mg Documented by: Furosemide (Furosemide 40 Mg/4 Ml Vial) 40 mg IV Q8 [facility] Gabapentin (Gabapentin 300 Mg Capsule) 300 mg PO TIDCM [facility] Last Admin: 01/31/21 11:51 Dose: 300 mg Documented by: Cefepime HCl 1 gm/ Sodium (Chloride) 50 mls @ 100 mls/hr IV Q8H [facility] Last Infusion: 05/09/20 08:30 Dose: Infused Documented by: Levothyroxine Sodium (Levothyroxine 50 Mcg Tablet) 50 mcg PO DAILY@0600 [facility] Last Admin: 05/09/20 06:43 Dose: 50 mcg Documented by: Melatonin (Melatonin 3 Mg Tablet) 3 mg PO QHS PRN PRN PRN Reason: INSOMNIA Last Admin: 05/08/20 23:24 Dose: 3 mg Documented by: Metoprolol Tartrate (Metoprolol Tartrate 25 Mg Tablet) 25 mg PO BID [facility] Last Admin: 05/09/20 09:57 Dose: Not Given Documented by: Nutritional Formula (Lactose Free) (Glucerna Shake 120 Ml Liquid) 120 ml PO 4X/DAY [facility] Last Admin: 05/09/20 08:49 Dose: 120 ml Documented by: Nystatin (Nystatin Powder 15gm Bottle) 1 applic TOPICAL TID [facility]; Protocol Last Admin: 05/09/20 06:43 Dose: Not Given Documented by: Ondansetron HCl (Ondansetron 4 Mg/2 Ml Vial) 4 mg IV Q8H PRN PRN PRN Reason: NAUSEA/VOMITING Sodium Chloride (0.9% Saline Lock 10 Ml Syringe) 10 - 40 ml IV UD PRN PRN Reason: SALINE FLUSH Last Admin: 05/09/20 11:51 Dose: 10 ml Documented by: Medical Necessity - Tobacco Use Smoking Status: Former smoker Assessment/Plan All Active Problems (Last Reviewed 02/10/20 @ 16:[address] Benedicto Davis MD) Frequent falls (Acute) Acute blood loss anemia (Resolved) Hematoma of left lower leg (Resolved) Open wound of left lower leg with complication (Resolved) Skin necrosis (Resolved) Bronchitis (Resolved) Cellulitis (Resolved) Chest pain (Resolved) Dyspnea (Resolved) Hematoma of leg (Resolved) Open wound of right lower leg (Resolved) Pneumonia (Resolved) Pulmonary edema (Resolved) Secondary pulmonary arterial hypertension (Resolved) Sepsis (Resolved) 1. Acute on chronic combined hypoxic and hypercapnic respiratory failure secondary to acute on chronic diastolic CHF, complicated by pulmonary arterial hypertension, JASMIN and morbid obesity-patient wears 4 L nasal cannula at baseline. BNP 387. Previous echocardiogram 2018 demonstrated an EF of 50%. IV Lasix. Strict I&O. Daily weight. Repeat echocardiogram demonstrates an EF of 55%. Continue supplement oxygen to maintain O2 at above 90%. 2. Chronic normocytic anemia-appears at baseline, trend CBC. 3. Chronic kidney disease stage III-stable, trend BMP. 4. History of Proteus infected left calf hematoma secondary to mechanical fall-status post surgical I&D and evacuation of traumatic infected necrotic hematoma and excisional debridement of compromised skin with necrosis 02/13/2020. Wound vac discontinued 05/05/2020 per patient. Consult wound RN. Plastics following. Recent culture from SNF grew Pseudomonas. On IV cefepime. 5. Chronic atrial fibrillation-continue metoprolol, Cardizem, Eliquis. 6. Type 2 diabetes [id number] with sliding scale insulin. Hemoglobin A1c 02/11/20 5.9%. 7. Hypertension-continue metoprolol, Cardizem with hold parameters. Previously on Lasix 40 mg twice daily however this was reduced to daily dose due to prior low blood pressure. 8. Hyperlipidemia-continue statin. 9. Hypothyroidism-continue Synthroid. 10. Morbid obesity-encouraged diet lifestyle modifications. 11. Pulmonary arterial hypertension-repeat echo ordered. Recommend outpatient follow-up with pulmonary medicine at discharge. 12. Chronic COPD-as needed albuterol aerosol. 13. JASMIN-continue home CPAP regimen. 14. GERD- continue famotidine. DVT prophylaxis-Eliquis This patient was seen by MOSES Crespo under the supervision of Dr. Darby. <Niko Darby - Last Filed: 05/09/20 12:27> - Physical Exam Vitals/I&O's: Vital Signs Temp Pulse Resp BP Pulse Ox 97.9 F 89 18 101/46 L 95 05/09/20 11:50 05/09/20 11:50 05/09/20 11:50 05/09/20 11:50 05/09/20 11:50 Oxygen Flow Rate (L/min) 7 Oxygen Delivery Method Nasal Cannula Weight: 157.3 kg Body Mass Index (BMI) 53.4 Finger Stick Blood Glucose 155 Intake and Output for Last 24 Hours 05/07/20 05/08/20 05/09/20 23:59 23:59 23:59 Intake Total 1170 / 1650 1240 / 1240 410 / 410 Output Total 800 / 1350 1490 / 2090 1900 / 1900 Balance 370 / 300 -250 / -850 -1490 / -1490 Microbiology Past 72 Hours 05/06/20 13:55 Urine, Clean Catch Urine Culture - Final Culture exhibits no growth. 05/06/20 13:35 Blood Culture (Wb) - Anticubital Left Blood Culture - Preliminary No growth in 48 hours. 05/06/20 14:02 Blood Culture (Wb) - Anticubital Left Blood Culture - Preliminary No growth in 48 hours. Laboratory Results 05/09/20 06:24: WBC 7.7, RBC 3.10 L, Hgb 8.0 L, Hct 28.9 L, MCV 93.2, MCH 25.8 L, MCHC 27.7 L, RDW Std Deviation 66.2 H, RDW Coeff of Shannan 19.4 H, Plt Count 216, MPV 11.8 05/09/20 06:24: Sodium 140, Potassium 3.2 L, Chloride 96 L, Carbon Dioxide 40.0 H, Anion Gap 4 L, BUN 24 H, Creatinine 0.72, Estim Creat Clear Calc 85.85, Est GFR (MDRD) Af Amer 107, Est GFR (MDRD) Non-Af 89, BUN/Creatinine Ratio 33.1 H, Glucose 111 H, Calcium 8.9 Current Medications Acetaminophen (Acetaminophen 325 Mg Tablet) 650 mg PO Q6H PRN PRN PRN Reason: Pain Score 1-10/Temp > 100.7 F Last Admin: 05/07/20 20:45 Dose: 650 mg Documented by: Apixaban (Apixaban 5 Mg Tablet) 5 mg PO BID [facility] Last Admin: 05/09/20 08:51 Dose: 5 mg Documented by: Atorvastatin Calcium (Atorvastatin Calcium 40 Mg Tablet) 40 mg PO QHS [facility] Last Admin: 05/08/20 22:58 Dose: 40 mg Documented by: Calamine/Phenol (Menthol/Lanolin/Calamine/Znox 113 Gm Tube) 1 applic TOPICAL 4X/DAY [facility]; Protocol Last Admin: 05/09/20 07:58 Dose: 1 applicatio Documented by: Diltiazem HCl (Diltiazem Cd 180 Mg Capsule) 180 mg PO DAILY [facility] Last Admin: 05/09/20 09:57 Dose: Not Given Documented by: Doxepin HCl (Doxepin Hcl 50 Mg Capsule) 50 mg PO QHS [facility] Last Admin: 05/08/20 23:26 Dose: 50 mg Documented by: Ferrous Sulfate (Ferrous Sulfate 325 Mg Tablet) 325 mg PO DAILYCM [facility] Last Admin: 05/09/20 07:58 Dose: 325 mg Documented by: Fluoxetine HCl (Fluoxetine 20 Mg Capsule) 60 mg PO DAILY [facility] Last Admin: 05/09/20 08:50 Dose: 60 mg Documented by: Furosemide (Furosemide 40 Mg/4 Ml Vial) 40 mg IV Q8 [facility] Gabapentin (Gabapentin 300 Mg Capsule) 300 mg PO TIDCM [facility] Last Admin: 05/09/20 11:51 Dose: 300 mg Documented by: Cefepime HCl 1 gm/ Sodium (Chloride) 50 mls @ 100 mls/hr IV Q8H [facility] Last Infusion: 05/09/20 08:30 Dose: Infused Documented by: Levothyroxine Sodium (Levothyroxine 50 Mcg Tablet) 50 mcg PO DAILY@0600 [facility] Last Admin: 05/09/20 06:43 Dose: 50 mcg Documented by: Melatonin (Melatonin 3 Mg Tablet) 3 mg PO QHS PRN PRN PRN Reason: INSOMNIA Last Admin: 05/08/20 23:24 Dose: 3 mg Documented by: Metoprolol Tartrate (Metoprolol Tartrate 25 Mg Tablet) 25 mg PO BID [facility] Last Admin: 05/09/20 09:57 Dose: Not Given Documented by: Nutritional Formula (Lactose Free) (Glucerna Shake 120 Ml Liquid) 120 ml PO 4X/DAY [facility] Last Admin: 05/09/20 08:49 Dose: 120 ml Documented by: Nystatin (Nystatin Powder 15gm Bottle) 1 applic TOPICAL TID [facility]; Protocol Last Admin: 05/09/20 06:43 Dose: Not Given Documented by: Ondansetron HCl (Ondansetron 4 Mg/2 Ml Vial) 4 mg IV Q8H PRN PRN PRN Reason: NAUSEA/VOMITING Potassium Chloride (Potassium Chloride 20 Meq Tablet) 40 meq PO X1 ONE Stop: 05/09/20 12:13 Potassium Chloride (Potassium Chloride 20 Meq Tablet) [facility] Sodium Chloride (0.9% Saline Lock 10 Ml Syringe) 10 - 40 ml IV UD PRN PRN Reason: SALINE FLUSH Last Admin: 05/09/20 11:51 Dose: 10 ml Documented by: Assessment/Plan This patient was seen in conjunction with MOSES Crespo . I have independently interviewed and examined the patient and reviewed pertinent historical, laboratory, and other data. Please refer to MOSES Crespo note for details of this patient's presentation, findings, and recommendations. I have reviewed MOS[facility] Crespo note and concur with documented findings. In brief, Patient is a 54-year-old female admitted with progressive shortness of breath and assessment of acute on chronic hypoxic and hypercapnic respiratory failure made admitted to monitored bed for further management Physical Examination: GENERAL: cooperative HEENT: Atraumatic; EYES; Anicteric, Normal Conjunctiva NECK; supple, normal thyroid, RESPIRATORY: Diminished to auscultation CARDIOVASCULAR: Regular S1 S2, GI: soft, normoactive bowel sounds, : No Renal angle tenderness; EXTREMITIES: edema, left medial lower leg wound (viewed from picture from wound care nurse), MUSCULOSKELETAL: no muscle waisting NEURO: Awake; no lateralizing signs. SKIN: No Rash PSYCH; Flat affect Assessment: 1. Acute on chronic hypoxic and hypercapnic respiratory failure ?Multifactorial including CHF, pulmonary hypertension, obesity hypoventilation syndrome obstructive sleep apnea. 2. Acute congestive heart failure?With preserved ejection fraction (diastolic CHF). The estimated ejection fraction is 55 %. No evidence for diastolic dysfunction. The left atrium is mildly enlarged. The right atrium is mildly enlarged. Trivial mitral valve insufficiency. Mildly dilated right ventricle. 3. Anemia of chronic disease 4. Chronic A. fib 5. Diabetes mellitus type II 6. Dyslipidemia 7. Hypertension 8. Hypothyroidism 9. Morbid obesity 10. Chronic kidney disease stage III 11. Pulmonary hypertension 12. COPD 12. Obstructive sleep apnea 13. GERD 14. History of recent infected left calf hematoma ?15. DVT prophylaxis Recommendations: 1. I have discussed the results of my overview and impressions with the patient 2. Options for management were reviewed Inpatient E&M: 86010 Subs Hosp L2
[2020-05-09] MEDS: Nystatin Powder 15gm Bottle 1 APPLIC TOPICAL ×2 (12:51→23:23)
[2020-05-09] MEDS: Atorvastatin Calcium 40 MG Tablet PO (23:31)
[2020-05-09] MEDS: DOXEPIN HCL 50 MG CAPSULE PO (23:32)
[2020-05-09] MEDS: Metoprolol Tartrate 25 MG Tablet PO (23:32)
[2020-05-09] MEDS: MELATONIN 3 MG TABLET PO (23:33)
[2020-05-09] MEDS: Acetaminophen 325 MG Tablet 650 MG PO (23:37)
[2020-05-10] VITALS (15 sets, daily range): BP systolic 96–120; BP diastolic 56–67; PULSE 76–94; RESP 17–19; TEMP 36.4–36.9; O2SAT 92–93
[2020-05-10 05:20] LABS: Hematocrit 29.1 % (37-47); Hemoglobin 8.1 g/dL (12.0-15.0); Mean Corp Hgb Conc 27.8 g/dL (32-36); Mean Corpuscular Hgb 25.8 pg (27.0-32.0); Mean Corpuscular Volume 92.7 fL (81-99); Mean Platelet Vol. 11.7 fl (6.2-12.0); Platelet Count 196 K/mm3 (150-450); RBC Distribution Width CV 18.8 % (11.6-14.6); RBC Distribution Width SD 63.7 fl (35.1-43.9); Red Blood Count 3.14 M/mm3 (4.2-5.4); White Blood Count 7.6 K/mm3 (4.4-11.0)
[2020-05-10] MEDS: Levothyroxine 50 MCG Tablet PO (05:30)
[2020-05-10] MEDS: oxyCODONE 5 MG Tablet PO ×2 (05:30→23:08)
[2020-05-10] MEDS: Furosemide 40 MG/4 ML Vial IV ×3 (05:30→18:11)
[2020-05-10] MEDS: Glucerna Shake 120 ML LIQUID PO ×3 (05:31→22:57)
[2020-05-10] MEDS: Nystatin Powder 15gm Bottle 1 APPLIC TOPICAL ×3 (05:31→22:58)
[2020-05-10 05:35] LABS: Anion Gap 3 (5-15); BUN 22 mg/dL (7-18); BUN/Creat Ratio 34.3 RATIO (10-20); Calcium,Total 8.8 mg/dL (8.5-10.1); Chloride 93 mmol/L (98-107); Creatinine, Serum 0.64 mg/dL (0.55-1.02); EST Glomerular Filtration Rate 102 mL/min (>60); Est Glom Filt Rate - Afr Amer 124 mL/min (>60); Estimated Creatinine Clearance 96.58 ml/min; Glucose 128 mg/dL (74-106); Potassium 2.8 mmol/L (3.5-5.1); Sodium Level 140 mmol/L (136-145)
[2020-05-10] MEDS: Metoprolol Tartrate 25 MG Tablet PO ×2 (10:19→22:59)
[2020-05-10] MEDS: Gabapentin 300 MG Capsule PO ×3 (10:19→18:11)
[2020-05-10] MEDS: dilTIAZem CD 180 MG Capsule PO (10:19)
[2020-05-10] MEDS: Ferrous Sulfate 325 MG Tablet PO (10:20)
[2020-05-10] MEDS: FLUoxetine 20 MG Capsule 60 MG PO (10:21)
[2020-05-10] MEDS: Menthol/Lanolin/Calamine/Znox 113 GM Tube 1 APPLIC TOPICAL ×3 (10:21→22:57)
--- NOTE | 2020-05-10 10:46 | PN_ITS ---
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 Benedicto howard MD) Frequent falls (Acute) Subjective: Patient seen and examined. Shortness of breath improved. Reports mild improvement in pedal swelling. Denies other symptoms or complaints. - Physical Exam Vitals/I&O's: Vital Signs Temp Pulse Resp BP Pulse Ox 97.7 F L 82 19 H 108/64 93 05/10/20 10:14 05/10/20 10:19 05/10/20 10:14 05/10/20 10:14 05/10/20 10:14 Oxygen Flow Rate (L/min) 5 Oxygen Delivery Method Nasal Cannula Weight: 345 lb 10.957 oz Body Mass Index (BMI) 53.4 Finger Stick Blood Glucose 155 Intake and Output for Last 24 Hours 05/08/20 05/09/20 05/10/20 23:59 23:59 23:59 Intake Total 1240 / 1240 800 / 800 50 / 50 Output Total 1490 / 2090 4475 / 4775 700 / 700 Balance -250 / -850 -3675 / -3975 -650 / -650 General: Alert, Oriented x3, Cooperative HEENT: Atraumatic, PERRLA, EOMI, Normocephalic Neck: Supple, No JVD, Negative Carotid Bruits Lungs: Clear to auscultation, Normal air movement Cardiovascular: - - Atrial fibrillation, rate controlled Abdomen: Bowel Sounds Present, Soft, Non Tender, Non-Distended Extremities: No clubbing, No cyanosis, Capillary Refill Less than 3 Seconds, Edema - Bilateral lower extremity Skin: No rashes, No breakdown, - - Left lower extremity dressing intact Musculoskeletal: No Tenderness to Palpation of Joints or Extremities Neurological: Cranial nerves II-XII grossly intact, Neuro grossly intact Psych/Mental Status: Normal Affect, Appropriate Microbiology Past 72 Hours 05/06/20 13:55 Urine, Clean Catch Urine Culture - Final Culture exhibits no growth. 05/06/20 13:35 Blood Culture (Wb) - Anticubital Left Blood Culture - Preliminary No growth in 48 hours. 05/06/20 14:02 Blood Culture (Wb) - Anticubital Left Blood Culture - Preliminary No growth in 48 hours. Laboratory Results 05/10/20 04:31: WBC 7.6, RBC 3.14 L, Hgb 8.1 L, Hct 29.1 L, MCV 92.7, MCH 25.8 L , MCHC 27.8 L, RDW Std Deviation 63.7 H, RDW Coeff of Shannan 18.8 H, Plt Count 196, MPV 11.7 05/10/20 04:31: Sodium 140, Potassium 2.8 L, Chloride 93 L, Carbon Dioxide 44.0 H, Anion Gap 3 L, BUN 22 H, Creatinine 0.64, Estim Creat Clear Calc 96.58, Est GFR (MDRD) Af Amer 124, Est GFR (MDRD) Non-Af 102, BUN/Creatinine Ratio 34.3 H, Glucose 128 H, Calcium 8.8 Current Medications Acetaminophen (Acetaminophen 325 Mg Tablet) 650 mg PO Q4H PRN PRN PRN Reason: Pain Score 1-10/Temp > 100.7 F Apixaban (Apixaban 5 Mg Tablet) 5 mg PO BID [facility] Last Admin: 05/09/20 23:34 Dose: 5 mg Documented by: Atorvastatin Calcium (Atorvastatin Calcium 40 Mg Tablet) 40 mg PO QHS [facility] Last Admin: 05/09/20 23:31 Dose: 40 mg Documented by: Calamine/Phenol (Menthol/Lanolin/Calamine/Znox 113 Gm Tube) 1 applic TOPICAL 4X/DAY [facility]; Protocol Last Admin: 05/10/20 10:21 Dose: 1 applicatio Documented by: Diltiazem HCl (Diltiazem Cd 180 Mg Capsule) 180 mg PO DAILY [facility] Last Admin: 05/10/20 10:19 Dose: 180 mg Documented by: Doxepin HCl (Doxepin Hcl 50 Mg Capsule) 50 mg PO QHS [facility] Last Admin: 05/09/20 23:32 Dose: 50 mg Documented by: Ferrous Sulfate ([facility]errous S[facility]ate 325 Mg Tablet) [facility] Admin: 05/10/20 10:20 Dose: 325 mg Documented by: Fluoxetine HCl (Fluoxetine 20 Mg Capsule) 60 mg PO DAILY [facility] Last Admin: 05/10/20 10:21 Dose: 60 mg Documented by: Furosemide (Furosemide 40 Mg/4 Ml Vial) 40 mg IV Q8 [facility] Last Admin: 05/10/20 05:30 Dose: 40 mg Documented by: Gabapentin (Gabapentin 300 Mg Capsule) 300 mg PO TIDCM [facility] Last Admin: 05/10/20 10:19 Dose: 300 mg Documented by: Cefepime HCl 1 gm/ Sodium (Chloride) 50 mls @ 100 mls/hr IV Q8H [facility] Last Admin: 05/10/20 10:31 Dose: 100 mls/hr Documented by: Levothyroxine Sodium (Levothyroxine 50 Mcg Tablet) 50 mcg PO DAILY@0600 [facility] Last Admin: 05/10/20 05:30 Dose: 50 mcg Documented by: Melatonin (Melatonin 3 Mg Tablet) 3 mg PO QHS PRN PRN PRN Reason: INSOMNIA Last Admin: 05/09/20 23:33 Dose: 3 mg Documented by: Metoprolol Tartrate (Metoprolol Tartrate 25 Mg Tablet) 25 mg PO BID [facility] Last Admin: 05/10/20 10:19 Dose: 25 mg Documented by: Nutritional Formula (Lactose Free) (Glucerna Shake 120 Ml Liquid) 120 ml PO TID [facility] Last Admin: 05/10/20 05:31 Dose: 120 ml Documented by: Nystatin (Nystatin Powder 15gm Bottle) 1 applic TOPICAL TID [facility]; Protocol Last Admin: 05/10/20 05:31 Dose: 1 applic Documented by: Ondansetron HCl (Ondansetron 4 Mg/2 Ml Vial) 4 mg IV Q8H PRN PRN PRN Reason: NAUSEA/VOMITING Oxycodone HCl (Oxycodone 5 Mg Tablet) 5 mg PO Q4H PRN PRN PRN Reason: Pain Score 6-10 Last Admin: 05/10/20 05:30 Dose: 5 mg Documented by: Potassium Chloride (Potassium Chloride 20 Meq Tablet) 40 meq PO BIDCM [facility] Sodium Chloride (0.9% Saline Lock 10 Ml Syringe) 10 - 40 ml IV UD PRN PRN Reason: SALINE FLUSH Last Admin: 05/09/20 23:34 Dose: 10 ml Documented by: Medical Necessity - Tobacco Use Smoking Status: Former smoker Assessment/Plan All Active Problems (Last Reviewed 02/10/20 @ 16:[address] Benedicto Davis MD) Frequent falls (Acute) Acute blood loss anemia (Resolved) Hematoma of left lower leg (Resolved) Open wound of left lower leg with complication (Resolved) Skin necrosis (Resolved) Bronchitis (Resolved) Cellulitis (Resolved) Chest pain (Resolved) Dyspnea (Resolved) Hematoma of leg (Resolved) Open wound of right lower leg (Resolved) Pneumonia (Resolved) Pulmonary edema (Resolved) Secondary pulmonary arterial hypertension (Resolved) Sepsis (Resolved) 1. Acute on chronic combined hypoxic and hypercapnic respiratory failure secondary to acute on chronic diastolic CHF, complicated by pulmonary arterial hypertension, JASMIN and morbid obesity-patient wears 4 L nasal cannula at baseline. BNP 387. Previous echocardiogram 2018 demonstrated an EF of 50%. Continue IV Lasix given patient continues to have significant output. Strict I&O. Daily weight. Repeat echocardiogram demonstrates an EF of 55%. Continue supplement oxygen to maintain O2 at above 90%. 2. Chronic normocytic anemia-appears at baseline, trend CBC. 3. Chronic kidney disease stage III-stable, trend BMP. 4. History of Proteus infected left calf hematoma secondary to mechanical fall- status post surgical I&D and evacuation of traumatic infected necrotic hematoma and excisional debridement of compromised skin with necrosis 02/13/2020. Wound vac discontinued 05/05/2020 per patient. Consult wound RN. Plastics following. Recent culture from SNF grew Pseudomonas. On IV cefepime. Continue dressing changes per orders. 5. Chronic atrial fibrillation-continue metoprolol, Cardizem, Eliquis. 6. Type 2 diabetes [id number] with sliding scale insulin. Hemoglobin A1c 02/11/20 5.9%. 7. Hypertension-continue metoprolol, Cardizem with hold parameters. Previously on Lasix 40 mg twice daily however this was reduced to daily dose due to prior low blood pressure. Will need increased regimen at discharge. 8. Hyperlipidemia-continue statin. 9. Hypothyroidism-continue Synthroid. 10. Morbid obesity-encouraged diet lifestyle modifications. 11. Pulmonary arterial hypertension-repeat echo ordered. Recommend outpatient follow-up with pulmonary medicine at discharge. 12. Chronic COPD-as needed albuterol aerosol. 13. JASMIN-continue home CPAP regimen. 14. GERD- continue famotidine. DVT prophylaxis-Eliquis This patient was seen by [facility] Crespo under the supervision of Dr. Enciso. <Henry Enciso F - Last Filed: 05/10/20 16:00> - Physical Exam Vitals/I&O's: Vital Signs Temp Pulse Resp BP Pulse Ox 97.7 F L 80 17 96/56 L 93 05/10/20 14:55 05/10/20 14:55 05/10/20 14:55 05/10/20 14:55 05/10/20 14:55 Oxygen Flow Rate (L/min) 5 Oxygen Delivery Method Nasal Cannula Weight: 345 lb 10.957 oz Body Mass Index (BMI) 53.4 Finger Stick Blood Glucose 155 Intake and Output for Last 24 Hours 05/08/20 05/09/20 05/10/20 23:59 23:59 23:59 Intake Total 1240 / 1240 800 / 800 460 / 460 Output Total 1490 / 2090 4475 / 4775 1600 / 1600 Balance -250 / -850 -3675 / -3975 -1140 / -1140 Microbiology Past 72 Hours 05/06/20 13:55 Urine, Clean Catch Urine Culture - Final Culture exhibits no growth. 05/06/20 13:35 Blood Culture (Wb) - Anticubital Left Blood Culture - Preliminary No growth in 48 hours. 05/06/20 14:02 Blood Culture (Wb) - Anticubital Left Blood Culture - Preliminary No growth in 48 hours. Laboratory Results 05/10/20 04:31: WBC 7.6, RBC 3.14 L, Hgb 8.1 L, Hct 29.1 L, MCV 92.7, MCH 25.8 L , MCHC 27.8 L, RDW Std Deviation 63.7 H, RDW Coeff of Shannan 18.8 H, Plt Count 196, MPV 11.7 05/10/20 04:31: Sodium 140, Potassium 2.8 L, Chloride 93 L, Carbon Dioxide 44.0 H, Anion Gap 3 L, BUN 22 H, Creatinine 0.64, Estim Creat Clear Calc 96.58, Est GFR (MDRD) Af Amer 124, Est GFR (MDRD) Non-Af 102, BUN/Creatinine Ratio 34.3 H, Glucose 128 H, Calcium 8.8 Current Medications Acetaminophen (Acetaminophen 325 Mg Tablet) 650 mg PO Q4H PRN PRN PRN Reason: Pain Score 1-10/Temp > 100.7 F Apixaban (Apixaban 5 Mg Tablet) 5 mg PO BID [facility] Last Admin: 05/10/20 11:19 Dose: 5 mg Documented by: Atorvastatin Calcium (Atorvastatin Calcium 40 Mg Tablet) 40 mg PO QHS [facility] Last Admin: 05/09/20 23:31 Dose: 40 mg Documented by: Calamine/Phenol (Menthol/Lanolin/Calamine/Znox 113 Gm Tube) 1 applic TOPICAL 4X/DAY [facility]; Protocol Last Admin: 05/10/20 15:12 Dose: 1 applicatio Documented by: Diltiazem HCl (Diltiazem Cd 180 Mg Capsule) 180 mg PO DAILY [facility] Last Admin: 05/10/20 10:19 Dose: 180 mg Documented by: Doxepin HCl (Doxepin Hcl 50 Mg Capsule) 50 mg PO QHS [facility] Last Admin: 05/09/20 23:32 Dose: 50 mg Documented by: Ferrous Sulfate (Ferrous Sulfate 325 Mg Tablet) 325 mg PO DAILYCM [facility] Last Admin: 05/10/20 10:20 Dose: 325 mg Documented by: Fluoxetine HCl (Fluoxetine 20 Mg Capsule) 60 mg PO DAILY [facility] Last Admin: 05/10/20 10:21 Dose: 60 mg Documented by: Furosemide (Furosemide 40 Mg/4 Ml Vial) 40 mg IV Q8 [facility] Last Admin: 05/10/20 15:12 Dose: 40 mg Documented by: Gabapentin (Gabapentin 300 Mg Capsule) 300 mg PO TIDCM [facility] Last Admin: 05/10/20 11:20 Dose: 300 mg Documented by: Cefepime HCl 1 gm/ Sodium (Chloride) 50 mls @ 100 mls/hr IV Q8H [facility] Last Infusion: 05/10/20 11:01 Dose: Infused Documented by: Levothyroxine Sodium (Levothyroxine 50 Mcg Tablet) 50 mcg PO DAILY@0600 [facility] Last Admin: 05/10/20 05:30 Dose: 50 mcg Documented by: Melatonin (Melatonin 3 Mg Tablet) 3 mg PO QHS PRN PRN PRN Reason: INSOMNIA Last Admin: 05/09/20 23:33 Dose: 3 mg Documented by: Metoprolol Tartrate (Metoprolol Tartrate 25 Mg Tablet) 25 mg PO BID [facility] Last Admin: 05/10/20 10:19 Dose: 25 mg Documented by: Nutritional Formula (Lactose Free) (Glucerna Shake 120 Ml Liquid) 120 ml PO TID [facility] Last Admin: 05/10/20 15:12 Dose: 120 ml Documented by: Nystatin (Nystatin Powder 15gm Bottle) 1 applic TOPICAL TID [facility]; Protocol Last Admin: 05/10/20 15:12 Dose: 1 applic Documented by: Ondansetron HCl (Ondansetron 4 Mg/2 Ml Vial) 4 mg IV Q8H PRN PRN PRN Reason: NAUSEA/VOMITING Oxycodone HCl (Oxycodone 5 Mg Tablet) 5 mg PO Q4H PRN PRN PRN Reason: Pain Score 6-10 Last Admin: 05/10/20 05:30 Dose: 5 mg Documented by: Potassium Chloride (Potassium Chloride 20 Meq Tablet) 40 meq PO BIDCM [facility] Sodium Chloride (0.9% Saline Lock 10 Ml Syringe) 10 - 40 ml IV UD PRN PRN Reason: SALINE FLUSH Last Admin: 05/10/20 15:17 Dose: 10 ml Documented by: Addendum: Dr. Enciso I personally examined the patient and reviewed the chart. I agree with the above. 54-year-old female from a [place] presents with shortness of breath. She states that she told the correction staff that she was feeling more short of breath, she does wear 4 L of nasal cannula daily however they said that because her CPAP order was for at bedtime she could not wear it in the afternoon. She was later transferred to the hospital with shortness of breath and a PCO2 on ABG of 79.9, as well as a 78% on 4 L nasal cannula. She was placed on BiPAP and started feeling immediately better. She did have an elevated BNP indicative of heart failure especially with a right pleural effusion on chest x-ray. She does have a history of pulmonary hypertension as well as diastolic CHF, currently in exacerbation. Of note this time last year she was 305 and now she is 340 pounds so she does feel that she has gained weight and has noticed some tightness in her hands. We will place her on IV Lasix twice daily. 05/10/2020: She is almost back to baseline on her home O2. She is on 5 L nasal cannula maintaining her oxygen sats, and her blood pressures are low but stable. She still has significant lower extremity edema. We will continue with IV diuresis and place her on a fluid restriction. She has not lost any significant amount of weight despite being about 6 L negative on her fluid balance. Today her potassium is 2.8, this will be replaced and we will check a magnesium and phosphorus in the morning. Inpatient E&M: [id number] [facility] L2
--- NOTE | 2020-05-10 11:08 | CASEMGMT ---
Addendum entered by Paradise Merida 05/10/20 11:13: Patient scored a 9 on the Palliative care screening tool. 4 and above indicates patients are appropriate for Palliative Care. Paradise FIGUEROA Original Note: Patient is from [place]. SW faxed updates to [place]. SW met with patient, introduced self and role at [facility]. SW talked with patient about Palliative Care. She was not sure at this time. SW gave her a pamphlet and told her if she is interested to notify someone at [place] so they could make a referral. Plan: d/c back to [place] when medically ready. She will need a negative COVID test within 24 hours of returning to [place]. Paradise FIGUEROA
[2020-05-10] MEDS: APIXABAN 5 MG TABLET PO ×2 (11:19→22:56)
--- NOTE | 2020-05-10 14:09 | CASEMGMT ---
DEBBIE faxed information to [employer] to obtain permission to proceed with pre-cert. Paradise GARCIA MSW
--- NOTE | 2020-05-10 14:14 | NURSING ---
wound photo: left medial lower leg
[2020-05-10] MEDS: 0.9% Saline Lock 10 ML Syringe IV ×2 (15:17→18:12)
[2020-05-10] MEDS: Atorvastatin Calcium 40 MG Tablet PO (22:55)
[2020-05-10] MEDS: DOXEPIN HCL 50 MG CAPSULE PO (22:56)
[2020-05-10] MEDS: MELATONIN 3 MG TABLET PO (23:08)
[2020-05-11] VITALS (8 sets, daily range): BP systolic 103–120; BP diastolic 59–73; PULSE 75–87; RESP 18; TEMP 36.4–36.8; O2SAT 90–93
[2020-05-11 05:23] LABS: Hematocrit 30.1 % (37-47); Hemoglobin 8.5 g/dL (12.0-15.0); Mean Corp Hgb Conc 28.2 g/dL (32-36); Mean Corpuscular Hgb 26.5 pg (27.0-32.0); Mean Corpuscular Volume 93.8 fL (81-99); Mean Platelet Vol. 12.1 fl (6.2-12.0); Platelet Count 185 K/mm3 (150-450); RBC Distribution Width CV 18.7 % (11.6-14.6); RBC Distribution Width SD 63.8 fl (35.1-43.9); Red Blood Count 3.21 M/mm3 (4.2-5.4); White Blood Count 8.3 K/mm3 (4.4-11.0)
[2020-05-11] MEDS: Levothyroxine 50 MCG Tablet PO (05:28)
[2020-05-11] MEDS: Glucerna Shake 120 ML LIQUID PO (05:28)
[2020-05-11] MEDS: Nystatin Powder 15gm Bottle 1 APPLIC TOPICAL ×2 (05:29→11:55)
[2020-05-11 05:47] LABS: Anion Gap 4 (5-15); BUN 24 mg/dL (7-18); BUN/Creat Ratio 33.5 RATIO (10-20); Calcium,Total 8.8 mg/dL (8.5-10.1); Chloride 90 mmol/L (98-107); Creatinine, Serum 0.72 mg/dL (0.55-1.02); EST Glomerular Filtration Rate 90 mL/min (>60); Est Glom Filt Rate - Afr Amer 109 mL/min (>60); Estimated Creatinine Clearance 85.85 ml/min; Glucose 141 mg/dL (74-106); Magnesium 2.2 mg/dL (1.6-2.6); Potassium 3.3 mmol/L (3.5-5.1); Sodium Level 137 mmol/L (136-145)
[2020-05-11 05:52] LABS: Phosphorus 3.9 mg/dL (2.5-4.9)
[2020-05-11] MEDS: 0.9% Saline Lock 10 ML Syringe IV ×2 (08:03→09:51)
[2020-05-11] MEDS: Ferrous Sulfate 325 MG Tablet PO (08:03)
[2020-05-11] MEDS: Gabapentin 300 MG Capsule PO ×2 (08:04→11:55)
[2020-05-11] MEDS: Menthol/Lanolin/Calamine/Znox 113 GM Tube 1 APPLIC TOPICAL (08:05)
[2020-05-11] MEDS: Metoprolol Tartrate 25 MG Tablet PO (09:50)
[2020-05-11] MEDS: APIXABAN 5 MG TABLET PO (09:50)
[2020-05-11] MEDS: FLUoxetine 20 MG Capsule 60 MG PO (09:50)
[2020-05-11] MEDS: Furosemide 40 MG/4 ML Vial IV (09:51)
[2020-05-11] MEDS: dilTIAZem CD 180 MG Capsule PO (09:51)
--- NOTE | 2020-05-11 11:21 | CASEMGMT ---
DEBBIE called Maty with [place] and let her know patient will be returning today. DEBBIE told her SW will updated her when SW has more information. Paradise GARCIA MSW
--- NOTE | 2020-05-11 11:44 | TREXTCA.CO_ITS ---
- Diet 05/06/20 17:46 Diet: Cardiac - Heart Healthy Food consistency:: Regular Liquid Consistency:: Regular/Thin Dietary Modifications:: Consistent Carbohydrate Sodium Restricted Type of Dietary Supplement:: Pedro Pablo Fluid restriction:: 1500 mL Diet Comments: BID w/ breakfast/dinner - Routine Orders/Code Status Enema Type: Fleetz Enema Frequency: Daily PRN Suppository Type: Dulcolax 10mg Suppository Frequency: Daily PRN O2 Liters per Minute: 4-6 O2 Frequency: Continuous Keep PO Greater than or Equal to (%): 90 Routine Lab Work: - - CBC, BMP Q Week Code Status: Full Code - Wound(s) Left inner calf Wound Type: healing wound Dressing Change: AntiMicrobial (Aquacel AG, etc) - Suggestions for Active Care Change Position every (hours): 2 Times a day to sit in chair: 3 - Therapies Physical Therapy: Eval and Treat Occupational Therapy: Eval and Treat - Problem/Diagnosis (1) Open wound of left lower leg with complication Status: Inactive (2) Acute blood loss anemia Status: Resolved (3) H/O methicillin resistant Staphylococcus aureus Status: Chronic (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 Comment: Victoriano (5) Hematoma of left lower leg Status: Resolved (6) JASMIN (obstructive sleep apnea) Status: Chronic Comment: Bipap 01/10 (7) Frequent falls Status: Chronic (8) Chronic atrial fibrillation Status: Chronic (9) Chronic diastolic (congestive) heart failure Status: Acute Comment: on chronic (10) Essential (primary) hypertension Status: Chronic - Allergies/Procedures Done in Hospital Allergies/Adverse Reactions: Allergies No Known Allergies Allergy (Verified 05/06/20 13:38) Procedures: 2-D Echocardiogram - Type of Care/Length of Stay Estimated LOS: Convalescent Care Less Than 30 days Type of Care Needed: Skilled Rehab Potential: Fair Prognosis: Fair - Additional Orders/Day of Discharge Additional Orders: -Continue home CPAP regimen at night and as needed. -cleanse wound to the left medial lower leg daily with NS. pat dry. place Aquacel AG and cover with dry dressing. wrap with kerlix and LAZARO wrap (pt will not let nurisng wrap the foot so please don't wrap the LAZARO tight. it's to assist in holding the dressing in place). H&P will serve as current which was dated: 05/06/20 Day of Discharge: 05/11/20 - Dietary and Speech Recommendations Dietitian Recommendations/Changes: Continue consistent CHO, cardiac/sodium restricted diet. Will add 1500mL fluid restriction. Will decrease glucerna to 120mL TID, will a Pedro Pablo BID for wound healing. - Follow Up Care Primary Care Physician: Nabor Garcia Chi, MD [Primary Care Provider] - Please follow up with your Primary Care Physician in: 1 Week Please Follow Up With: Benedicto Davis MD When: As scheduled Please Follow Up With: Sandra Maurer PA - Cardiology When: 2 Weeks, follow with Dr. Espinal Please Follow Up With: Jose Bravo MD When: 2 Weeks
--- NOTE | 2020-05-11 12:14 | PHA.DC.MR ---
Pharmacy Service has performed discharge medication reconciliation for this patient. The patient's discharge medication list was reviewed for discrepancies and discrepancies were resolved. Home Medications Atorvastatin Calcium 40 mg PO QHS 04/24/19 Doxepin HCl 50 mg PO QHS 04/24/19 Gabapentin [Neurontin] 300 mg PO TID 04/24/19 Fluoxetine [Prozac] 60 mg PO DAILY cap 02/18/20 Furosemide [Lasix] 40 mg PO DAILY tab 02/18/20 diltiazem HCl 180 mg capsule,24 hr,extended release 180 mg PO DAILY #90 cap 03/26/20 Apixaban [Eliquis] 5 mg PO BID 05/06/20 Ascorbic Acid [Vitamin C] 1,000 mg PO BID 05/06/20 Ferrous Sulfate 325 mg PO DAILY 05/06/20 Guaifenesin [Mucinex] 600 mg PO BID 05/06/20 Levothyroxine Sodium [Synthroid] 50 mcg PO DAILY 05/06/20 Metoprolol Tartrate [Lopressor (Beta Altagracia)] 25 mg PO BID 05/06/20 Potassium Chloride [K-Dur] 20 meq PO DAILY 05/06/20
--- NOTE | 2020-05-11 12:55 | PCM.DC.SUM ---
<Rebecca Castellano PREPRESS SPECIALIST - Last Filed: 05/11/20 13:03> Discharge Date and Diagnosis - Problem List Patient Problems: Active and Suspected Problems (Last Reviewed 02/10/20 @ 16:[address] Benedicto Davis MD) Chronic diastolic (congestive) heart failure (Acute) on chronic Date of Admission: 05/06/20 Date of Discharge: 05/11/20 - Primary Discharge Diagnosis Acute Problems: Active Problems (Last Reviewed 02/10/20 @ 16:[address] Benedicto Davis MD) 1. Acute on chronic combined hypoxic and hypercapnic respiratory failure secondary to acute on chronic diastolic CHF, complicated by pulmonary arterial hypertension, JASMIN and morbid obesity 2. Chronic normocytic anemia 3. Chronic kidney disease stage III 4. History of Proteus infected left calf hematoma secondary to mechanical fall-status post surgical I&D and evacuation of traumatic infected necrotic hematoma and excisional debridement of compromised skin with necrosis 02/13/2020. Recent cultures grew Pseudomonas. 5. Chronic atrial fibrillation 6. Type 2 diabetes mellitus 7. Hypertension 8. Hyperlipidemia 9. Hypothyroidism 10. Morbid obesity 11. Pulmonary arterial hypertension 12. Chronic COPD 13. JASMIN 14. GERD - Secondary Discharge Diagnosis Chronic Problems: Chronic Problems (Last Reviewed 02/10/20 @ 16:[address] 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 Moderate cardiomegaly. Electronically Signed: Fernie Luna MD at 14:17 EST , Service support , Consultations 05/06/20 17:46 Consult: Onc/Wound/industrial yard brake coupler Routine Comment: Reason for Consult:: LLE wound Comments:: wound vac dc'd 05/05 Operations: None Procedures: 2-D Echocardiogram Summary of Care Provided: The patient is a 54 year old F admitted 05/06/2020 due to shortness of breath. 1. Acute on chronic combined hypoxic and hypercapnic respiratory failure secondary to acute on chronic diastolic CHF, complicated by pulmonary arterial hypertension, JASMIN and morbid obesity-patient wears 4 L nasal cannula at baseline. BNP 387. Previous echocardiogram 2017 demonstrated an EF of 50%. IV Lasix during admission with significant urine output. Repeat echocardiogram demonstrates an EF of 55%. Increase home Lasix regimen to 40 mg twice a day. Continue supplement oxygen to maintain O2 at or above 90%. 2. Chronic normocytic anemia-appears at baseline. Follow CBC at [facility]. 3. Chronic kidney disease stage III-stable, at baseline. 4. History of Proteus infected left calf hematoma secondary to mechanical fall-status post surgical I&D and evacuation of traumatic infected necrotic hematoma and excisional debridement of compromised skin with necrosis 02/13/2020. Wound vac discontinued 05/05/2020. Recent culture from [facility] grew Pseudomonas. On IV cefepime, transition to oral Cipro at discharge to complete course. Wound does not appear acutely infected however will cover recent culture. Continue dressing changes per orders. Continue follow-up with Dr. Davis/Wound center. 5. Chronic atrial fibrillation-continue metoprolol, Cardizem, Eliquis. 6. Type 2 diabetes mellitus-Hemoglobin A1c 02/11/20 5.9%. No longer on insulin/oral regimen. 7. Hypertension-continue metoprolol, Cardizem with hold parameters. Previously on Lasix 40 mg twice daily however this was reduced to daily dose due to prior low blood pressure. Will need increased regimen at discharge. Blood pressure stable. 8. Hyperlipidemia-continue statin. 9. Hypothyroidism-continue Synthroid. 10. Morbid obesity-encouraged diet lifestyle modifications. 11. Pulmonary arterial hypertension-Recommend outpatient follow-up with pulmonary medicine at discharge. 12. Chronic COPD-as needed albuterol aerosol. 13. JASMIN-continue home CPAP regimen. 14. GERD- continue famotidine. General: Alert, Oriented x3, Cooperative HEENT: Atraumatic, PERRLA, EOMI, Normocephalic Neck: Supple, No JVD, Negative Carotid Bruits Lungs: Clear to auscultation, Normal air movement Cardiovascular: - - Atrial fibrillation, rate controlled Abdomen: Bowel Sounds Present, Soft, Non Tender, Non-Distended Extremities: No clubbing, No cyanosis, Capillary Refill Less than 3 Seconds, Edema - Bilateral lower extremity Skin: No rashes, No breakdown, - - Left lower extremity dressing intact Musculoskeletal: No Tenderness to Palpation of Joints or Extremities Neurological: Cranial nerves II-XII grossly intact, Neuro grossly intact Psych/Mental Status: Normal Affect, Appropriate Patient seen and examined prior to discharge. Physical assessment as noted above. Patient is stable for discharge with follow up recommendations as noted above. This patient was seen by MOSES Crespo under the supervision of Dr. Enciso. Patient Problems: Active and Suspected Problems (Last Reviewed 02/10/20 @ 16:[address] Benedicto Davis MD) Chronic diastolic (congestive) heart failure (Acute) on chronic - Physical Exam Vitals/I&O's: Vital Signs Temp Pulse Resp BP Pulse Ox 97.6 F L 87 18 111/67 93 05/11/20 09:46 05/11/20 09:50 05/11/20 09:46 05/11/20 09:50 05/11/20 09:46 Oxygen Flow Rate (L/min) 5 Oxygen Delivery Method Nasal Cannula Weight: 354 lb 8.053 oz Body Mass Index (BMI) 53.4 Finger Stick Blood Glucose 155 Intake and Output for Last 24 Hours 05/09/20 05/10/20 05/11/20 23:59 23:59 23:59 Intake Total 800 / 800 1050 / 1050 510 / 510 Output Total 4475 / 4775 3450 / 3450 875 / 875 Balance -3675 / -3975 -2400 / -2400 -365 / -365 Microbiology Past 72 Hours 05/11/20 11:10 Mucosa - Nose SARS-CoV-2 Antigen (Rapid) - Final 05/06/20 13:55 Urine, Clean Catch Urine Culture - Final Culture exhibits no growth. 05/06/20 13:35 Blood Culture (Wb) - Anticubital Left Blood Culture - Preliminary No growth in 48 hours. 05/06/20 14:02 Blood Culture (Wb) - Anticubital Left Blood Culture - Preliminary No growth in 48 hours. Laboratory Results 05/11/20 04:54: WBC 8.3, RBC 3.21 L, Hgb 8.5 L, Hct 30.1 L, MCV 93.8, MCH 26.5 L, MCHC 28.2 L, RDW Std Deviation 63.8 H, RDW Coeff of Shannan 18.7 H, Plt Count 185, MPV 12.1 H 05/11/20 04:54: Sodium 137, Potassium 3.3 L, Chloride 90 L, Carbon Dioxide 43.0 H, Anion Gap 4 L, BUN 24 H, Creatinine 0.72, Estim Creat Clear Calc 85.85, Est GFR (MDRD) Af Amer 109, Est GFR (MDRD) Non-Af 90, BUN/Creatinine Ratio 33.5 H, Glucose 141 H, Calcium 8.8, Magnesium 2.2 05/11/20 04:54: Phosphorus 3.9 Current Medications Acetaminophen (Acetaminophen 325 Mg Tablet) 650 mg PO Q4H PRN PRN PRN Reason: Pain Score 1-10/Temp > 100.7 F Apixaban (Apixaban 5 Mg Tablet) 5 mg PO BID [facility] Last Admin: 05/11/20 09:50 Dose: 5 mg Documented by: Atorvastatin Calcium (Atorvastatin Calcium 40 Mg Tablet) 40 mg PO QHS [facility] Last Admin: 05/10/20 22:55 Dose: 40 mg Documented by: Calamine/Phenol (Menthol/Lanolin/Calamine/Znox 113 Gm Tube) 1 applic TOPICAL 4X/DAY [facility]; Protocol Last Admin: 05/11/20 08:05 Dose: 1 applicatio Documented by: Ciprofloxacin HCl (Ciprofloxacin 500 Mg Tablet) 500 mg PO BID [facility] Diltiazem HCl (Diltiazem Cd 180 Mg Capsule) 180 mg PO DAILY [facility] Last Admin: 05/11/20 09:51 Dose: 180 mg Documented by: Doxepin HCl (Doxepin Hcl 50 Mg Capsule) 50 mg PO QHS [facility] Last Admin: 05/10/20 22:56 Dose: 50 mg Documented by: Ferrous Sulfate (Ferrous Sulfate 325 Mg Tablet) [facility] Last Admin: 05/11/20 08:03 Dose: 325 mg Documented by: Fluoxetine HCl (Fluoxetine 20 Mg Capsule) 60 mg PO DAILY [facility] Last Admin: 05/11/20 09:50 Dose: 60 mg Documented by: Furosemide (Furosemide 40 Mg/4 Ml Vial) 40 mg IV BID@1000,1800 [facility] Last Admin: 05/11/20 09:51 Dose: 40 mg Documented by: Gabapentin (Gabapentin 300 Mg Capsule) 300 mg PO TIDCM [facility] Last Admin: 05/11/20 11:55 Dose: 300 mg Documented by: Cefepime HCl 1 gm/ Sodium (Chloride) 50 mls @ 100 mls/hr IV Q8H [facility] Last Infusion: 05/11/20 08:33 Dose: Infused Documented by: Levothyroxine Sodium (Levothyroxine 50 Mcg Tablet) 50 mcg PO DAILY@0600 [facility] Last Admin: 05/11/20 05:28 Dose: 50 mcg Documented by: Melatonin (Melatonin 3 Mg Tablet) 3 mg PO QHS PRN PRN PRN Reason: INSOMNIA Last Admin: 05/10/20 23:08 Dose: 3 mg Documented by: Metoprolol Tartrate (Metoprolol Tartrate 25 Mg Tablet) 25 mg PO BID [facility] Last Admin: 05/11/20 09:50 Dose: 25 mg Documented by: Nutritional Formula (Lactose Free) (Glucerna Shake 120 Ml Liquid) 120 ml PO TID [facility] Last Admin: 05/11/20 05:28 Dose: 120 ml Documented by: Nystatin (Nystatin Powder 15gm Bottle) 1 applic TOPICAL TID [facility]; Protocol Last Admin: 05/11/20 11:55 Dose: 1 applic Documented by: Ondansetron HCl (Ondansetron 4 Mg/2 Ml Vial) 4 mg IV Q8H PRN PRN PRN Reason: NAUSEA/VOMITING Oxycodone HCl (Oxycodone 5 Mg Tablet) 5 mg PO Q4H PRN PRN PRN Reason: Pain Score 6-10 Last Admin: 05/10/20 23:08 Dose: 5 mg Documented by: Potassium Chloride (Potassium Chloride 20 Meq Tablet) 40 meq PO BIDCM [facility] Last Admin: 05/11/20 08:03 Dose: 40 meq Documented by: Sodium Chloride (0.9% Saline Lock 10 Ml Syringe) 10 - 40 ml IV UD PRN PRN Reason: SALINE FLUSH Last Admin: 05/11/20 09:51 Dose: 10 ml Documented by: Home Medications: Medications to take at Discharge Atorvastatin Calcium 40 mg PO QHS 04/24/19 Doxepin HCl 50 mg PO QHS 04/24/19 Gabapentin [Neurontin] 300 mg PO TID 04/24/19 Fluoxetine [Prozac] 60 mg PO DAILY cap 02/18/20 diltiazem HCl 180 mg capsule,24 hr,extended release 180 mg PO DAILY #90 cap 03/26/20 Apixaban [Eliquis] 5 mg PO BID 05/06/20 Ascorbic Acid [Vitamin C] 1,000 mg PO BID 05/06/20 Ferrous Sulfate 325 mg PO DAILY 05/06/20 Guaifenesin [Mucinex] 600 mg PO BID 05/06/20 Levothyroxine Sodium [Synthroid] 50 mcg PO DAILY 05/06/20 Metoprolol Tartrate [Lopressor (beta miriam)] 25 mg PO BID 05/06/20 Ciprofloxacin [Cipro] 500 mg PO BID 3 Days tab 05/11/20 Furosemide [Lasix] 40 mg PO BID #0 tab 05/11/20 Potassium Chloride [K-Dur] 40 meq PO DAILY tab 05/11/20 Primary Care Physician: Nabor Garcia Chi, MD [Primary Care Provider] - Please follow up with your Primary Care Physician in: 1 Week Please Follow Up With: Benedicto Davis MD When: As scheduled Please Follow Up With: Sandra Maurer PA - Cardiology When: 2 Weeks, follow with Dr. Espinal Please Follow Up With: Jose Bravo MD When: 2 Weeks Disposition: Shelter facility Minutes spent on discharge:: 35 Patient Condition:: Stable Medical Necessity - Tobacco Use Smoking Status: Former smoker Meaningful Use Info Meaningful Use Diagnoses (Choose all that apply): CHF - CHF LAZARO/ARB ordered at discharge?: No Reason LAZARO/ARB not ordered?: Worsening renal function Documented LVEF (%): 55 <Henry Enciso F - Last Filed: 05/11/20 13:59> Discharge Date and Diagnosis - Primary Discharge Diagnosis Acute Problems: Active Problems (Last Reviewed 02/10/20 @ 16:[address] Benedicto Davis MD) Chronic diastolic (congestive) heart failure (Acute) on chronic - Secondary Discharge Diagnosis Chronic Problems: Chronic Problems (Last Reviewed 02/10/20 @ 16:[address] 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 (Chronic) Eliquis JASMIN (obstructive sleep apnea) (Chronic) Bipap 01/10 Frequent falls (Chronic) Chronic atrial fibrillation (Chronic) Essential (primary) hypertension (Chronic) Hospital Course and Treatment Consultations 05/06/20 17:46 Consult: Onc/Wound/industrial yard brake coupler Routine Comment: Reason for Consult:: LLE wound Comments:: wound vac dc'd 05/05 Summary of Care Provided: The patient is a 54 year old F [] - Physical Exam Vitals/I&O's: Vital Signs Temp Pulse Resp BP Pulse Ox 98.2 F 85 18 103/59 L 90 05/11/20 13:40 05/11/20 13:40 05/11/20 13:40 05/11/20 13:40 05/11/20 13:42 Oxygen Flow Rate (L/min) 5 Oxygen Delivery Method Nasal Cannula Weight: 354 lb 8.053 oz Body Mass Index (BMI) 53.4 Finger Stick Blood Glucose 155 Intake and Output for Last 24 Hours 05/09/20 05/10/20 05/11/20 23:59 23:59 23:59 Intake Total 800 / 800 1050 / 1050 510 / 510 Output Total 4475 / 4775 3450 / 3450 875 / 875 Balance -3675 / -3975 -2400 / -2400 -365 / -365 Microbiology Past 72 Hours 05/11/20 11:10 Mucosa - Nose SARS-CoV-2 Antigen (Rapid) - Final 05/06/20 13:55 Urine, Clean Catch Urine Culture - Final Culture exhibits no growth. 05/06/20 13:35 Blood Culture (Wb) - Anticubital Left Blood Culture - Preliminary No growth in 48 hours. 05/06/20 14:02 Blood Culture (Wb) - Anticubital Left Blood Culture - Preliminary No growth in 48 hours. Laboratory Results 05/11/20 04:54: WBC 8.3, RBC 3.21 L, Hgb 8.5 L, Hct 30.1 L, MCV 93.8, MCH 26.5 L, MCHC 28.2 L, RDW Std Deviation 63.8 H, RDW Coeff of Shannan 18.7 H, Plt Count 185, MPV 12.1 H 05/11/20 04:54: Sodium 137, Potassium 3.3 L, Chloride 90 L, Carbon Dioxide 43.0 H, Anion Gap 4 L, BUN 24 H, Creatinine 0.72, Estim Creat Clear Calc 85.85, Est GFR (MDRD) Af Amer 109, Est GFR (MDRD) Non-Af 90, BUN/Creatinine Ratio 33.5 H, Glucose 141 H, Calcium 8.8, Magnesium 2.2 05/11/20 04:54: Phosphorus 3.9 Current Medications Acetaminophen (Acetaminophen 325 Mg Tablet) 650 mg PO Q4H PRN PRN PRN Reason: Pain Score 1-10/Temp > 100.7 F Apixaban (Apixaban 5 Mg Tablet) 5 mg PO BID [facility] Last Admin: 05/11/20 09:50 Dose: 5 mg Documented by: Atorvastatin Calcium (Atorvastatin Calcium 40 Mg Tablet) 40 mg PO QHS [facility] Last Admin: 05/10/20 22:55 Dose: 40 mg Documented by: Calamine/Phenol (Menthol/Lanolin/Calamine/Znox 113 Gm Tube) 1 applic TOPICAL 4X/DAY [facility]; Protocol Last Admin: 05/11/20 08:05 Dose: 1 applicatio Documented by: Ciprofloxacin HCl (Ciprofloxacin 500 Mg Tablet) 500 mg PO BID [facility] Diltiazem HCl (Diltiazem Cd 180 Mg Capsule) 180 mg PO DAILY [facility] Last Admin: 05/11/20 09:51 Dose: 180 mg Documented by: Doxepin HCl (Doxepin Hcl 50 Mg Capsule) 50 mg PO QHS [facility] Last Admin: 05/10/20 22:56 Dose: 50 mg Documented by: Ferrous Sulfate (Ferrous Sulfate 325 Mg Tablet) 325 mg PO DAILYCM [facility] Last Admin: 05/11/20 08:03 Dose: 325 mg Documented by: Fluoxetine HCl (Fluoxetine 20 Mg Capsule) 60 mg PO DAILY [facility] Last Admin: 05/11/20 09:50 Dose: 60 mg Documented by: Furosemide (Furosemide 40 Mg/4 Ml Vial) 40 mg IV BID@1000,1800 [facility] Last Admin: 05/11/20 09:51 Dose: 40 mg Documented by: Gabapentin (Gabapentin 300 Mg Capsule) 300 mg PO TIDCM [facility] Last Admin: 05/11/20 11:55 Dose: 300 mg Documented by: Cefepime HCl 1 gm/ Sodium (Chloride) 50 mls @ 100 mls/hr IV Q8H [facility] Last Infusion: 05/11/20 08:33 Dose: Infused Documented by: Levothyroxine Sodium (Levothyroxine 50 Mcg Tablet) 50 mcg PO DAILY@0600 [facility] Last Admin: 05/11/20 05:28 Dose: 50 mcg Documented by: Melatonin (Melatonin 3 Mg Tablet) 3 mg PO QHS PRN PRN PRN Reason: INSOMNIA Last Admin: 05/10/20 23:08 Dose: 3 mg Documented by: Metoprolol Tartrate (Metoprolol Tartrate 25 Mg Tablet) 25 mg PO BID [facility] Last Admin: 05/11/20 09:50 Dose: 25 mg Documented by: Nutritional Formula (Lactose Free) (Glucerna Shake 120 Ml Liquid) 120 ml PO TID [facility] Last Admin: 05/11/20 05:28 Dose: 120 ml Documented by: Nystatin (Nystatin Powder 15gm Bottle) 1 applic TOPICAL TID [facility]; Protocol Last Admin: 05/11/20 11:55 Dose: 1 applic Documented by: Ondansetron HCl (Ondansetron 4 Mg/2 Ml Vial) 4 mg IV Q8H PRN PRN PRN Reason: NAUSEA/VOMITING Oxycodone HCl (Oxycodone 5 Mg Tablet) 5 mg PO Q4H PRN PRN PRN Reason: Pain Score 6-10 Last Admin: 05/10/20 23:08 Dose: 5 mg Documented by: Potassium Chloride (Potassium Chloride 20 Meq Tablet) [facility] Last Admin: 05/11/20 08:03 Dose: 40 meq Documented by: Sodium Chloride (0.9% Saline Lock 10 Ml Syringe) 10 - 40 ml IV UD PRN PRN Reason: SALINE FLUSH Last Admin: 05/11/20 09:51 Dose: 10 ml Documented by: Addendum: Dr. Enciso I personally examined the patient and reviewed the chart. I agree with the above. 54-year-old female [facility] presents with shortness of breath. She states that she told the [facility] staff that she was feeling more short of breath, she does wear 4 L of nasal cannula daily however they said that because her CPAP order was for at bedtime she could not wear it in the afternoon. She was later transferred to the hospital with shortness of breath and a PCO2 on ABG of 79.9, as well as a 78% on 4 L nasal cannula. She was placed on BiPAP and started feeling immediately better. She did have an elevated BNP indicative of heart failure especially with a right pleural effusion on chest x-ray. She does have a history of pulmonary hypertension as well as diastolic CHF, currently in exacerbation. Of note this time last year she was 305 and now she is 340 pounds so she does feel that she has gained weight and has noticed some tightness in her hands. We will place her on IV Lasix twice daily. 05/10/2020: She is almost back to baseline on her home O2. She is on 5 L nasal cannula maintaining her oxygen sats, and her blood pressures are low but stable. She still has significant lower extremity edema. We will continue with IV diuresis and place her on a fluid restriction. She has not lost any significant amount of weight despite being about 6 L negative on her fluid balance. Today her potassium is 2.8, this will be replaced and we will check a magnesium and phosphorus in the morning. 05/11/2020: She did well overnight. I decreased her Lasix yesterday secondary to her rising bicarb which can cause her respiratory drive to be diminished. She can resume oral diuretic therapy at the [facility] now that she has been diuresed over 7 L. Would recommend that she be allowed to wear her CPAP at anytime of the day or night whenever she feels short of breath as this could have potentially prevented her significant hypoxia of 78% that she had had at the [facility] prior to arrival. Also recommend continuing potassium replacement 40 twice daily as her potassium had diminished to about 2.8. Magnesium and phosphorus were stable. I discussed with her the plan for discharge today and she expressed understanding of the risks and benefits of going back to the [facility] and she would like to go back today. She also need outpatient wound care management given her left calf hematoma which previously had grown Proteus and is now growing Pseudomonas. She is afebrile without a significant leukocytosis therefore this infection is not appear to be significantly clinically relevant however will continue Cipro twice daily for coverage pending outpatient follow-up by wound care. Inpatient E&M: [id number] Disch Hosp
--- NOTE | 2020-05-11 13:29 | CASEMGMT ---
DEBBIE faxed orders to [facility]. DEBBIE scheduled transport for 1500 via cot. DEBBIE notified RN and [facility] with [facility]. Plan: d/c back to [facility]. Physicians transported her via cot. [place] [facility]OA
--- NOTE | 2020-05-11 13:48 | NURSING ---
Report called to Kelsey nurse at [facility].
== END 2020-05-11 15:45 | disposition skilled nursing facility (03) | DRG 291 ==
LOC: ED 14:29 → ICU 16:47 → PCU 05-08 14:52
PROVIDERS: Emergency Medicine; Internal Medicine; Nurse Practitioner Family; Admitting Provider Family Medicine; Emergency Provider Student in an Organized Health Care Education/Training Program; PCP Family Medicine Geriatric Medicine; Visit Provider Family Medicine
DX: I13.0 Hypertensive heart and chronic kidney disease with heart failure and stage 1 through stage 4 chronic kidney disease, or unspecified chronic kidney disease (principal); I50.33 Acute on chronic diastolic (congestive) heart failure; J96.21 Acute and chronic respiratory failure with hypoxia; J96.22 Acute and chronic respiratory failure with hypercapnia; I48.20 Chronic atrial fibrillation, unspecified; Z68.43 Body mass index [BMI] 50.0-59.9, adult; E66.2 Morbid (severe) obesity with alveolar hypoventilation; L97.222 Non-pressure chronic ulcer of left calf with fat layer exposed; B96.5 Pseudomonas (aeruginosa) (mallei) (pseudomallei) as the cause of diseases classified elsewhere; E11.22 Type 2 diabetes mellitus with diabetic chronic kidney disease; N18.30 Chronic kidney disease, stage 3 unspecified; I27.21 Secondary pulmonary arterial hypertension; J44.9 Chronic obstructive pulmonary disease, unspecified; E78.5 Hyperlipidemia, unspecified; E03.9 Hypothyroidism, unspecified; D63.8 Anemia in other chronic diseases classified elsewhere; I95.9 Hypotension, unspecified; R29.6 Repeated falls; K21.9 Gastro-esophageal reflux disease without esophagitis; F32.9 Major depressive disorder, single episode, unspecified; Z79.01 Long term (current) use of anticoagulants; Z79.890 Hormone replacement therapy; Z79.899 Other long term (current) drug therapy; Z87.891 Personal history of nicotine dependence; Z86.14 Personal history of Methicillin resistant Staphylococcus aureus infection; Z86.16 Personal history of COVID-19
CPT/HCPCS: 36600; 51702; 71045; 80048; 80053; 81001; 82803; 83605; 83735; 83880; 84100; 84484; 85025; 85027; 85610; 85730; 87040; 87086; 87426; 93005; 93306; 94002; 94003; 97110; 97116; 97163; 97166; 97530; 97535; 97803; 99285; Q9957; A4216; J1940

== ENCOUNTER 2020-05-24 09:00 | Outpatient (RCR) | payer MEDICARE, MEDICAID, SELFPAY ==
[2020-02-12 09:36] VITALS: BMI 51.7
[2020-05-06 18:00] VITALS: BMI 53.4
[2020-05-24 09:21] VITALS: BP 83/57; PULSE 84; RESP 18; TEMP 35.8; BMI 54.8
--- NOTE | 2020-05-24 23:11 | PCM.WC.PN ---
Type of Wound Date of Service: 05/24/20 Chief Complaint: Nonhealing hematoma ulcer left medial leg. History of Wound: Surgery 02/13/20 - Surgical preparation left medial leg with incision and drainage and evacuation traumatic painful infected necrotic hematoma and excisional debridement overlying compromised skin with necrosis (256 cm2). Wound care - Silver dressing changes daily. Operative culture - Proteus mirabilis. She was treated with Keflex and has finished them. Prealbumin from 02/14/20 was 6.4. Encourage nutritional supplementation with protein to help the healing process. HgbA1c from 02/11/20 was 5.9. Today she denies fever. Her appetite is good. Progress of Wound: Improved. - Physical Exam Vital Signs Temp Pulse Resp BP 96.5 F L 84 18 83/57 L 05/24/20 09:21 05/24/20 09:21 05/24/20 09:21 05/24/20 09:21 Wound Measurements and Assessment WC - Nurse 1 - General Ulcer Measurement Start: 05/24/20 09:20 Freq: Status: Active Protocol: Activity Type Activity Date Activity User E-Sign Co-Sign Detail Recorded Client Recorded Date Recorded By Document 05/24/20 09:21 [facility] [id number] 05/24/20 09:44 [facility] 05/24/20 09:21 Wound Center Nurse 1 [Ulcer Assessment] #3- L MEDIAL LE -Combined with other wound No -Current Size (cm) - Length 13 -Current Size (cm) - Width 10.4 -Current Size (cm) - Depth 0.1 -Total Square Cm 135.2 -Date of Last Picture (Recall this 05/24/20 field) -Photo Taken Yes -Epithelialization None Present -Tunneling No -Undermining/Tunneling No -Circular Undermining No -Exudate Amt Medium -Exudate Type Serosanguineous -Wound Margin Distinct, Outline Attached -Granulation Amt Large (67-100%) -Granulation Quality Red -Slough/Fibrin Yes -Necrosis Amt Small (1-33%) -Necrotic Tissue Type Adherent Slough -Texture (Adriana-wound Skin Appearance) Assessed, Scarring -Moisture (Adriana-wound Skin Appearance Assessed,Dry/ ) Scaly -Color (Adriana-wound Skin Appearance) Assessed -Temperature (Adriana-wound Skin No Abnormality Appearance) (Pt Warm) -Tenderness on Palpation (Adriana-wound No Skin Appearance) -Ulcer Cleansing SOAPY WATER -Foul Odor after Cleansing No -Anesthetic Used 4% Lidocaine Solution [Edema Assessment] -Lower Limb Edema Present Yes -Right Calf (cm) 53.1 -Right Ankle (cm) 26.2 -Left Calf (cm) 38.7 -Left Ankle (cm) 23.9 JEAN - Nurse 2 - General Ulcer CM Notes Start: 05/24/20 09:20 Freq: Status: Active Protocol: Activity Type Activity Date Activity User E-Sign Co-Sign Detail Recorded Client Recorded Date Recorded By Document 05/24/20 10:35 [id number] 05/24/20 10:41 JF 05/24/20 10:35 Wound Center Nurse 2 [Procedure/Treatment] #3- L MEDIAL LE -Time 10:37 -Correct Patient Yes -Correct Side, Site, Position Yes -Correct Procedure Yes -Procedure Performed Yes -Type of Procedure Debridement -Clinical Debridement Subcutaneous -Tissue Removed Subcutaneous -Post Debridement (cm) - Length 13.2 -Post Debridement (cm) - Width 10 -Post Debridement (cm) - Depth 0.2 -Total Square (Post) (cm) 132.0 -Area of Debridement (cm) - Length 13.2 -Area of Debridement (cm) - Width 10 -Total Square (Area) (cm) 132.0 -Tunneling No -Undermining/Tunneling No -Circular Undermining No -Wound/Ulcer Outcome Not Healed -Ulcer Cleansing Rinsed/ Irrigated with Saline -Foul Odor after Cleansing No -Bioengineered Tissue No -Bleeding Controlled with Pressure -Offloading No -Treatment Response Procedure Tolerated Well -Debridement - Subq, 1st 20sq cm Yes -Debridement, SubQ, ea addt'l 20sq cm 6 or part thereof [See Physician Procedure note for Specifics] Pain Scale: 0-10 Numeric [Pain] -Is Patient Pain Free? Yes JEAN - Nurse 3 - General Ulcer D/C NN Start: 05/24/20 09:20 Freq: Status: Active Protocol: Activity Type Activity Date Activity User E-Sign Co-Sign Detail Recorded Client Recorded Date Recorded By Document 05/24/20 10:59 MS [id number] 05/24/20 11:00 MS 05/24/20 10:59 Wound Care Nurse 3 [Wound Dressing] #3- L MEDIAL LE -Ulcer Cleansing SOAP AND WATER -Foul Odor after Cleansing No -Primary Dressing Applied Silvercel -Primary Dressing Covered/Secured Dry Gauze & with Roll Gauze -Silvercel 1 Pain Scale: 0-10 Numeric [Pain] -Is Patient Pain Free? No WC - Visit Discharge [Visit Discharge Information] -Discharge Condition Stable -Ambulatory Status Wheelchair -Transportation [facility] [employer] -Medication Reconcilliation completed No & provided to patient/care provider -Clinical Summary of Care Provided Yes Debridement Note Post-Debridement Measurements/Treatment WC - Nurse 2 - General Ulcer CM Notes Start: 05/24/20 09:20 Freq: Status: Active Protocol: Activity Type Activity Date Activity User E-Sign Co-Sign Detail Recorded Client Recorded Date Recorded By Document 05/24/20 10:35 [facility] [id number] 05/24/20 10:41 [facility] 05/24/20 10:35 Wound Center Nurse 2 #3- L MEDIAL LE -Time 10:37 -Correct Patient Yes -Correct Side, Site, Position Yes -Correct Procedure Yes -Procedure Performed Yes -Type of Procedure Debridement -Clinical Debridement Subcutaneous -Tissue Removed Subcutaneous -Post Debridement (cm) - Length 13.2 -Post Debridement (cm) - Width 10 -Post Debridement (cm) - Depth 0.2 -Total Square (Post) (cm) 132.0 -Area of Debridement (cm) - Length 13.2 -Area of Debridement (cm) - Width 10 -Total Square (Area) (cm) 132.0 -Tunneling No -Undermining/Tunneling No -Circular Undermining No -Wound/Ulcer Outcome Not Healed -Ulcer Cleansing Rinsed/ Irrigated with Saline -Foul Odor after Cleansing No -Bioengineered Tissue No -Bleeding Controlled with Pressure -Offloading No -Treatment Response Procedure Tolerated Well -Debridement - Subq, 1st 20sq cm Yes -Debridement, SubQ, ea addt'l 20sq cm 6 or part thereof Pain Scale: 0-10 Numeric Is Patient Pain Free? Yes - Nurse 3 - General Ulcer D/C NN Start: 05/24/20 09:20 Freq: Status: Active Protocol: Activity Type Activity Date Activity User E-Sign Co-Sign Detail Recorded Client Recorded Date Recorded By Document 05/24/20 10:59 MS [id number] 05/24/20 11:00 MS 05/24/20 10:59 Wound Care Nurse 3 #3- L MEDIAL LE -Ulcer Cleansing SOAP AND WATER -Foul Odor after Cleansing No -Primary Dressing Applied Silvercel -Primary Dressing Covered/Secured with Dry Gauze & Roll Gauze -Silvercel 1 Pain Scale: 0-10 Numeric Is Patient Pain Free? No WC - Visit Discharge Discharge Condition Stable Ambulatory Status Wheelchair Transportation [facility] [employer] Medication Reconcilliation completed & No provided to patient/care provider Clinical Summary of Care Provided Yes Wound debrided: #3 Left medial leg. Laterality: Left Wound Grade/Stage: 2. Type of Debridement: Excisional debridement Anesthesia Used: 4% Lidocaine Solution Depth: Down to and including healthy tissue, in the subcutaneous layer Percentage of wound debrided: 100 Instrument Used: 7mm curette Tissue Removed: subcutaneous tissue. Severity: Fat Layer Exposed Amount of bleeding with debridement: Mild Bleeding Controlled with: Pressure Patient tolerated procedure well Assessment/Plan Assessment: 1. Nonhealing hematoma ulcer left medial leg. 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 3. Frequent falls. 4. History of MRSA. 5. Diabetes mellitus. Plan: Continue Silver dressing changes daily. Elevate left leg when sitting. Continue leg compression. She is a candidate for advanced skin substitute grafts. Will monitor the ulceration over the next 30 days and then apply for it. Prealbumin from 02/14/20 was 6.4. Encourage nutritional supplementation with protein to help the healing process. HgbA1c from 02/11/20 was 5.9. Before considering skin grafting, the HgbA1c needs to be less than 8. Over the next few weeks, will check a wound culture in preparation for the advanced skin substitute grafts. She is not interested in further surgery with skin grafting at this time. A positive culture will necessitate antibiotic therapy. Followup one week. I discussed her case. She is a patient of Dr. Davis and I encourage her to continue with his plan of skin grafting in the near future. To continue with daily aquacel ag and Saline dressing. To use tubigrip compression; this was dispensed. She was previously treated for MRSA infection and she was reassured there is no sign of clinical infection noted. I reviewed and discussed her noninvasive arterial doppler studies on 07/17/16 were normal. To f/u with Dr. Davis in one week or call sooner if problems. [id number]: [id number] Kimberly subq tissue 20 sq cm/< - ICD-10 - L97.922, S80.12xS, Z79.01, Z86.14, E11.9, R29.6 Add On Codes: 75447 Kimberly subq tissue add-on - X 6 Units ICD-10 - L97.922, S80.12xS, Z79.01, Z86.14, E11.9, R29.6
== END 2020-06-06 23:59 ==
LOC: WC 09:00
PROVIDERS: PCP Family Medicine Geriatric Medicine; Referring Provider Surgery; Visit Provider Surgery
DX: E11.622 Type 2 diabetes mellitus with other skin ulcer (principal); L97.822 Non-pressure chronic ulcer of other part of left lower leg with fat layer exposed; R29.6 Repeated falls; Z86.14 Personal history of Methicillin resistant Staphylococcus aureus infection; Z79.02 Long term (current) use of antithrombotics/antiplatelets
CPT/HCPCS: 11042; 11045; 99213; G0463

== ENCOUNTER 2020-05-27 13:49 | Inpatient (IN) | payer MEDICARE, MEDICAID, SELFPAY ==
[2020-05-27] VITALS (20 sets, daily range): BP systolic 62–108; BP diastolic 40–68; PULSE 59–90; RESP 12–29; TEMP 36.2–36.7; O2SAT 91–100; BMI 49.3; BMI 55.0; BMI 55.1; BMI 52.9
--- NOTE | 2020-05-27 14:32 | EKG12_ITS ---
Test Reason : SOB Blood Pressure : / mmHG Vent. Rate : 074 BPM Atrial Rate : 078 BPM P-R Int : 000 ms QRS Dur : 108 ms QT Int : 420 ms P-R-T Axes : 000 099 -79 degrees QTc Int : 466 ms Atrial fibrillation Rightward axis ST & T wave abnormality, consider anterior ischemia Abnormal ECG Confirmed by HANS RAMÍREZ, ARUN ([id number]), editor continuity and script KRUPA SERNA ([id number]) on 05/31/2020 10:52:00 AM Referred By: SCOT Confirmed By:ARUN MAXWELL MD
--- NOTE | 2020-05-27 14:50 | RAD_ITS ---
STUDY: X-RAY CHEST REASON FOR EXAM: Female, 54 years old. Twitching, sob, chest pressure TECHNIQUE: Single AP portable view of the chest. COMPARISON: Comparison is made with prior study dated 05/06/2020. FINDINGS: Since prior study, there has been progressive CHF with bibasilar atelectasis is worse at the right lung base. Small right pleural effusion. There is moderate cardiac enlargement. Normal mediastinum and sen. Normal visualized pulmonary arteries. Normal visualized aortic arch and descending thoracic aorta. Normal visualized thoracic spine. Normal visualized ribs, clavicles, and shoulders. There is no demonstrated abnormality of the visualized soft tissue structures of the upper abdomen. RAD/Chest 1 View (Portable) IMPRESSION: Findings in keeping with CHF with right basilar atelectasis and/or infiltrate and right pleural effusion. Moderate size cardiomegaly. A pericardial effusion cannot be excluded. Electronically Signed: Fernie Luna MD at 15:07 EST , Service support ,
[2020-05-27 15:15] LABS: Bacteria 0 SEEN /hpf (None Seen); Mucous, Urine 0 SEEN /hpf (<or=2+); Red Blood Cells-Urine 0 SEEN /hpf (0-5)
[2020-05-27 15:19] LABS: Absolute Lymphocyte Count 1.07 X10^3/uL (0.83-4.51); Basophil# 0.03 X10^3/uL; Basophil% 0.6 % (0-1); Eosinophil# 0.21 X10^3/uL; Eosinophils% 4.5 % (0-5); Hematocrit 33.5 % (37-47); Hemoglobin 9.1 g/dL (12.0-15.0); Lymphocyte # 1.07 X10^3/ul (4.0); Lymphocyte % 22.9 % (19-41); Mean Corp Hgb Conc 27.2 g/dL (32-36); Mean Corpuscular Hgb 26.3 pg (27.0-32.0); Mean Corpuscular Volume 96.8 fL (81-99); Mean Platelet Vol. 11.5 fl (6.2-12.0); Monocyte# 0.36 X10^3/uL; Monocyte% 7.7 % (0-10); NRBC Flagged by Analyzer 0 % (0-5); Neutrophil % 64.1 % (47-70); POSITIVE MORPHOLOGY YES; Platelet Count 214 K/mm3 (150-450); RBC Distribution Width SD 67.7 fl (35.1-43.9); Red Blood Count 3.46 M/mm3 (4.2-5.4); White Blood Count 4.7 K/mm3 (4.4-11.0)
--- NOTE | 2020-05-27 15:19 | ED.VIS.DYS ---
History of Present Illness Chief Complaint: Shortness of Breath Informant: Patient Onset: Days Narrative: Patient is a 54-year-old female presenting from [facility] for worsening shortness of breath. Patient states for the past 12 hours her breathing has been intolerable because its been so severe. She states is been progressively worsening over the past week. Per nursing report apparently patient's oxygen was as low as 50% at the residential however she is placed on increased nasal cannula and improved to 90%. Patient wears 4 L at baseline. Patient had appointment to see her wet cotton feeder today so she just went to that instead of going to the ER. She was late to her appointment because of transportation so then she decided come to the ER to be evaluated. Patient states she is had a 25 pound weight gain in the past week or so. She states she does not feel like her Lasix is working. She did receive an IM dose of 20 mg of Lasix today at her nursing facility before her appointment. Patient states in March she had Covid and was in the hospital for 2 weeks. Since then she has had a CHF exacerbation. She is having a hard time with management of her CHF. Patient has chest pressure since today. She denies any GI or symptoms. She denies any fever or chills. She denies any cough. No other complaints at this time. Past Medical History - Allergies and Home Meds Allergies/Adverse Reactions: Allergies No Known Allergies Allergy (Verified 05/27/20 13:51) Past Medical History: - - JASMIN, chronic atrial fibrillation, diastolic heart failure, hypertension Surgical History: cholecystectomy, - - arthroscopic surgery on the knee, umbilical hernia repair. Debridement hematoma right leg in 2007. surgical preparation right anterior leg with incision and drainage and excisional debridement hematoma (380 cm2) - 05/17/16. Excisional debridement nonhealing hematoma ulcer right anterior leg with STSG reconstruction from lower anterior abdominal wall (126 cm2) - 09/21/16. [facility]: [facility] Smoking Status: Unknown if ever smoked - Family History Paternal Family History: Family History (Last Reviewed 05/06/20 @ 17:05 by Rebecca Castellano NP, BUILDING CONSTRUCTION IRONWORKER-C) Father CAD (coronary artery disease) Pacemaker CHF (congestive heart failure) Diabetes Heart disease Hypertension High cholesterol COPD (chronic obstructive pulmonary disease) Brother Anxiety Diabetes Heart disease Hypertension High cholesterol Family History: Reports: Heart Disease - father at 64 YOA with an NV, Hypertension, Stroke Maternal Family History: Family History (Last Reviewed 05/06/20 @ 17:05 by Rebecca Castellano BUILDING CONSTRUCTION IRONWORKER, BUILDING CONSTRUCTION IRONWORKER-C) Father CAD (coronary artery disease) Pacemaker CHF (congestive heart failure) Diabetes Heart disease Hypertension High cholesterol COPD (chronic obstructive pulmonary disease) Brother Anxiety Diabetes Heart disease Hypertension High cholesterol Family History: Reports: Hypertension, Stroke Review of Systems General: Denies: Chills, Fever, Sweats Eyes: Denies: Visual changes - bilaterally, Diplopia ENT: Denies: Rhinorrhea, Sore throat Cardiovascular: Reports: Chest pain - pressure. Denies: Palpitations Respiratory: Reports: Dyspnea. Denies: Cough, Sputum Gastrointestinal: Denies: Abdominal pain, Nausea, Vomiting, Diarrhea, Melena, Hematochezia Genitourinary: Denies: Dysuria, Hematuria, Frequency Musculoskeletal: Reports: Swelling. Denies: Back pain, Extremity Pain Skin: Denies: Rash, Wounds Neurological: Reports: Weakness - generalized . Denies: Headache, Numbness Physical Exam Vital Signs/Narrative: Vital Signs Temp Pulse Resp BP Pulse Ox 05/27/20 13:53 98 F 77 22 H 108/66 96 Inital Vital Signs reviewed: Yes General: Well nourished, Well developed, Obese, No Acute Distress Head: Normocephalic, Atraumatic Eyes: Perrl, EOMI, Pale conjunctiva ENT: Moist mucous membranes, No rhinorrhea Neck: Supple, Nontender, No JVD Cardiovascular: Regular rate, No murmurs, Irregular Respiratory: Chest nontender, Diminished, - - Bibasilar crackles as well as diffuse crackles of the right lung Abdomen: Soft, Nontender, Nondistended, Normal bowel sounds Back: Nontender, Normal Inspection Extremities: Nontender, Edema - Pain edema of the lower extremities as well as chronic venous stasis changes Skin: No rash, Pallor Neurological: Alert, Oriented x3, Cranial nerves II-XII grossly intact, Normal Strength, Normal Sensation Psychological: Normal affect, Normal Mood Diagnostic/Tx/Re-eval Chest X-Ray - ED: 1 View, Read by ED Physician, Read by Radiologist, Cardiomegaly, CHF, Right Effusion Clinical Impression(s) from Imaging Studies Chest X-Ray 05/27/20 14:50 IMPRESSION: Findings in keeping with CHF with right basilar atelectasis and/or infiltrate and right pleural effusion. Moderate size cardiomegaly. A pericardial effusion cannot be excluded. Electronically Signed: Fernie Luna MD at 15:07 EST , Service support , Laboratory Data 05/27/20 05/27/20 05/27/20 15:10 15:10 15:10 WBC 4.7 RBC 3.46 L Hgb 9.1 L Hct 33.5 L MCV 96.8 MCH 26.3 L MCHC 27.2 L RDW Std Deviation 67.7 H RDW Coeff of Shannan 19.0 H Plt Count 214 MPV 11.5 Immature Gran % (Auto) 0.200 Neut % (Auto) 64.1 Lymph % (Auto) 22.9 [place] % (Auto) 7.7 Eos % (Auto) 4.5 Baso % (Auto) 0.6 Absolute Neuts (auto) 3.0 Absolute Lymphs (auto) 1.07 Nucleated RBC % 0 Platelet Estimate ADEQUATE Anisocytosis 1+ Stomatocytes 1+ Sodium 141 Potassium 3.5 Chloride 92 L Carbon Dioxide > 45.0 H* Anion Gap TNP BUN 12 Creatinine 0.69 Estim Creat Clear Calc 89.59 Est GFR (MDRD) Af Amer 114 Est GFR (MDRD) Non-Af 94 BUN/Creatinine Ratio 17.4 Glucose 111 H Calcium 8.9 Troponin I < 0.015 B-Natriuretic Peptide 487.9 H Urine Color Urine Clarity Urine pH Ur Specific [place] Urine Protein Urine Glucose (UA) Urine Ketones Urine Occult Blood Urine Nitrite Urine Bilirubin Urine Urobilinogen Ur Leukocyte Esterase Urine RBC Urine WBC Ur Squamous Epith Cells Urine Bacteria Hyaline Casts Urine Mucus Urine Yeast 05/27/20 15:10 WBC RBC Hgb Hct MCV MCH MCHC RDW Std Deviation RDW Coeff of Shannan Plt Count MPV Immature Gran % (Auto) Neut % (Auto) Lymph % (Auto) [place] % (Auto) Eos % (Auto) Baso % (Auto) Absolute Neuts (auto) Absolute Lymphs (auto) Nucleated RBC % Platelet Estimate Anisocytosis Stomatocytes Sodium Potassium Chloride Carbon Dioxide Anion Gap BUN Creatinine Estim Creat Clear Calc Est GFR (MDRD) Af Amer Est GFR (MDRD) Non-Af BUN/Creatinine Ratio Glucose Calcium Troponin I B-Natriuretic Peptide Urine Color Yellow Urine Clarity Sl. Cloudy Urine pH 6.0 Ur Specific [place] 1.020 Urine Protein 15 H Urine Glucose (UA) Normal Urine Ketones Negative Urine Occult Blood 25 H Urine Nitrite Negative Urine Bilirubin Negative Urine Urobilinogen Normal Ur Leukocyte Esterase 500 H Urine RBC 0 SEEN Urine WBC 50-100 SEEN Ur Squamous Epith Cells 10-25 SEEN Urine Bacteria 0 SEEN Hyaline Casts 10-25 SEEN Urine Mucus 0 SEEN Urine Yeast 1+ - Rhythm Strip Rhythm Strip: A-fib Rate: 74 Ectopy: None - EKG Initial EKG Interpretation: Atrial Fibrillation, - - Atrial fibrillation at a rate of 74Rightward axisNormal QRS and QTcT wave inversions and 3 and V2No change compared to prior EKG on 05/06/2020 - Medical Decision Making Patient is evaluated for worsening shortness of breath and chest pressure. Patient clinically appears fluid overloaded and has significant crackles in her lungs. Patient does have a history of CHF.CBC is remarkable for hemoglobin 9.1 which actually is slightly above her baseline. Her BMP has a critically high carbon dioxide of greater than 45. Her troponin is normal and her BNP is 487. Patient's urinalysis does have biventricular esterase with 50-100 white blood cells. Should be placed on antibiotics empirically urine culture sent and she is given a dose of IV Rocephin in the ER. Chest x-ray is consistent with a CHF. Patient is given IV Lasix for CHF exacerbation. ABG is obtained per request of admitting physician which does show a slightly decompensated respiratory acidosis. Patient is placed on BiPAP. Patient wears CPAP at baseline. She is not hypoxic. At this time she is stable for the PCU. Patient agreeable with plan of care. ED Disposition - Plan for ED Patient: Disposition: Acute Care [facility] Diagnosis: Acute on chronic diastolic (congestive) heart failure, Hypercarbia, UTI (urinary tract infection)
[2020-05-27 15:21] LABS: Color, Urine Yellow (Yellow); Glucose, Dipstick Normal (Normal); Ketone-Dipstick Negative (Negative); Leukocyte Esterase-Dipstick 500 /ul (Negative); Nitrite-Dipstick Negative (Negative); Occult Blood-Urine 25 /ul (Negative); Protein-Dipstick 15 mg/dl (Negative); Urine Bilirubin Dipstick Negative (Negative); Urine Clarity Sl. Cloudy (Clear); Urine Urobilinogen Normal (Normal)
[2020-05-27 15:22] LABS: Differential Indicated SCAN CRITERIA MET
[2020-05-27 15:33] LABS: BNP,B-Type NATRIURETIC PEPTIDE 487.9 pg/mL (0-100)
[2020-05-27] MEDS: Furosemide 40 MG/4 ML Vial IV (15:40)
[2020-05-27 15:42] LABS: BUN 12 mg/dL (7-18); BUN/Creat Ratio 17.4 RATIO (10-20); Calcium,Total 8.9 mg/dL (8.5-10.1); Carbon Dioxide > 45.0 mmol/L (21.0-32.0); Chloride 92 mmol/L (98-107); Creatinine, Serum 0.69 mg/dL (0.55-1.02); EST Glomerular Filtration Rate 94 mL/min (>60); Est Glom Filt Rate - Afr Amer 114 mL/min (>60); Estimated Creatinine Clearance 89.59 ml/min; Glucose 111 mg/dL (74-106); Potassium 3.5 mmol/L (3.5-5.1); Sodium Level 141 mmol/L (136-145)
[2020-05-27 15:46] LABS: Anisocytosis 1+; Platelet Estimate ADEQUATE (ADEQ); Stomatocyte 1+
[2020-05-27 15:59] LABS: White Blood Cells 50-100 SEEN /hpf (0-5)
[2020-05-27 16:00] LABS: Squamous Epithelial Cells - UA 10-25 SEEN /hpf (5-10)
[2020-05-27 16:01] LABS: Hyaline Cast 10-25 SEEN /lpf (0-5); Yeast-Urine 1+ /hpf (None Seen)
[2020-05-27] MEDS: Ceftriaxone 1 GM/50 ML BAG IV (16:28)
[2020-05-27 16:31] LABS: Allen Test Positive; Base Excess > 30 mmol/L (-2 to +2); Bicarbonate 57.5 mmol/L (22-26); Blood Gas Specimen Type ART; O2 Delivery Device Cannula; PO2 81 mmHG (75-100); SITE L Radial; SO2 93 % (95-99); Total Carbon Dioxide > 50 mmol/L; pCO2 112.5 mmHg (35-45); pH 7.32 (7.35-7.45)
--- NOTE | 2020-05-27 16:36 | CPS ---
Critical values on ABG Doctor notified.
--- NOTE | 2020-05-27 20:25 | HP.PCM_ITS ---
History of Present Illness Date of Admission: 05/27/20 Chief Complaint: Shortness of breath The patient is a 54 year old F with a PMH as below presents from the care home with worsening shortness of breath. At the time I examined she is extremely lethargic she does open her eyes to mild stimulation however she has difficulty keeping them open and communication is difficult through the BiPAP. Apparently between discharge from the ER and transferred to the floor the BiPAP had been removed so most of the history is obtained from previous medical records as well as discussion with the ER physician. Apparently 12 hours prior to presentation to the ER her breathing became worse and she says that she had been getting worse over the last week. At one point in the care home she was down to 50% on a nasal cannula. At baseline she wears 4 L nasal cannula. She was recently admitted to the hospital for a similar presentation with heart failure, she was diuresed aggressively which had to be backed off a little bit because of a rising bicarb. She was discharged at that time on 40 mg of Lasix p.o. twice daily, unsure if that is been continued at the care home she was given a dose of 20 mg of IM Lasix today per report. She told the ED that she had gained about 25 pounds in the past week or so. In the ER she was found to have a hemoglobin of 9.1 she had an ABG obtained which demonstrated a pH of 7.32 as well as a bicarb of 57.5 and a PCO2 of 112.5. Creatinine was unremarkable BNP is elevated to 487. Past Medical History Past Medical History (Chronic Problems): Chronic Problems (Last Reviewed 02/10/20 @ 16:[address] Benedicto Davis MD) Acute on chronic diastolic (congestive) heart failure (Chronic) Contusion of left lower leg, sequela (Chronic) Ulcer of left lower extremity with fat layer exposed (Chronic) H/O methicillin resistant Staphylococcus aureus (Chronic) alf (current) use of anticoagulants (Chronic) Eliquis JASMIN (obstructive sleep apnea) (Chronic) Bipap 10/ Frequent falls (Chronic) Chronic atrial fibrillation (Chronic) Essential (primary) hypertension (Chronic) Medical History: Medical History (Last Reviewed 02/10/20 @ 16:[address] Benedicto Davis MD) alf (current) use of anticoagulants (Chronic) Z79.01 Eliquis JASMIN (obstructive sleep apnea) (Chronic) G47.33 Bipap 10/4 Chronic atrial fibrillation (Chronic) I48.2 Chronic diastolic (congestive) heart failure (Acute) I50.32 on chronic Essential (primary) hypertension (Chronic) I10 Heart disease I51.9 Heart failure I50.9 History of blood transfusion Z92.89 History of pneumonia Z87.01 Pancreatitis K85.90 Chronic bronchitis J42 Depression F32.9 Diabetes type 2, controlled E11.9 High blood pressure I10 Hypothyroidism E03.9 Obesity, Class III, BMI 40-49.9 (morbid obesity) [id number] Osteoarthritis M19.90 Bronchitis (Resolved) J40 Hematoma of left lower leg (Resolved) S80.12XA Hematoma of leg (Resolved) S80.10XA Pneumonia (Resolved) J18.9 Pulmonary edema (Resolved) J81.1 Secondary pulmonary arterial hypertension (Resolved) I27.21 Allergies No Known Allergies Allergy (Verified 05/27/20 13:51) Home Medications: Ambulatory Orders Medication Instructions Recorded Atorvastatin Calcium 40 mg PO QHS 04/24/19 Doxepin HCl 50 mg PO QHS 04/24/19 Gabapentin [Neurontin] 300 mg PO TID 04/24/19 diltiazem HCl 180 mg capsule,24 180 mg PO DAILY #90 cap 03/26/20 hr,extended release Apixaban [Eliquis] 5 mg PO BID 05/06/20 Ascorbic Acid [Vitamin C] 1,000 mg PO BID 05/06/20 Ferrous Sulfate 325 mg PO DAILY 05/06/20 Guaifenesin [Mucinex] 600 mg PO BID 05/06/20 Levothyroxine Sodium [Synthroid] 50 mcg PO DAILY 05/06/20 Metoprolol Tartrate [Lopressor 25 mg PO BID 05/06/20 (beta miriam)] Albuterol Inhaler [Ventolin Hfa 2 puff INHALATION Q4H PRN PRN 05/24/20 (SP)] Menthol [Biofreeze] 1 applic TP QHS 05/24/20 Nystatin Powder [Mycostatin Powder] 1 applic TOPICAL BID 05/24/20 Fluoxetine [Prozac] 60 mg PO DAILY 05/27/20 Furosemide Liquid [Lasix Liquid] 20 mg IM DAILY 05/27/20 Furosemide [Lasix] 40 mg PO BID 05/27/20 Potassium Chloride Oral Tablet 40 meq PO DAILY 05/27/20 [K-Dur] Surgical History: Surgical History (Last Reviewed 02/10/20 @ 16:[address] Benedicto Davis MD) H/O umbilical hernia repair Z98.890, Z87.19 History of excision of mass Z98.890 Surgical preparation right anterior leg with incision and drainage and excisional debridement hematoma (380 cm2) - 05/17/16 History of skin graft Z94.5 Excisional debridement, nonhealing hematoma ulcer, right anterior leg with split-thickness skin graft reconstruction from lower anterior abdominal wall (126 square cm) - 09/21/16 History of tonsillectomy and adenoidectomy Z98.890 Hx of cholecystectomy Z90.49 Open wound of right lower leg (Resolved) S81.801A S81.801A open surgical hematoma wound right anterior leg Surgical History: cholecystectomy, - - arthroscopic surgery on the knee, umbilical hernia repair. Debridement hematoma right leg in 2007. surgical preparation right anterior leg with incision and drainage and excisional anne marie ridement hematoma (380 cm2) - 05/17/16. Excisional debridement nonhealing hematoma ulcer right anterior leg with STSG reconstruction from lower anterior abdominal wall (126 cm2) - 09/21/16. 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 Lives: Longterm Smoking Status: Unknown if ever smoked Tobacco Use: Cigarettes Alcohol: None Drugs: None - *Family History Paternal Family History: Family History (Last Reviewed 05/06/20 @ 17:05 by Rebecca Castellano NP, REHABILITATION MANAGER-C) Father CAD (coronary artery disease) Pacemaker CHF (congestive heart failure) Diabetes Heart disease Hypertension High cholesterol COPD (chronic obstructive pulmonary disease) Brother Anxiety Diabetes Heart disease Hypertension High cholesterol History Items: Heart Disease - father at 64 YOA with an [place], Hypertension, Stroke Maternal Family History: Family History (Last Reviewed 05/06/20 @ 17:05 by Rebecca Castellano NP, REHABILITATION MANAGER-C) Father CAD (coronary artery disease) Pacemaker CHF (congestive heart failure) Diabetes Heart disease Hypertension High cholesterol COPD (chronic obstructive pulmonary disease) Brother Anxiety Diabetes Heart disease Hypertension High cholesterol History Items: Hypertension, Stroke Review of Systems Unable to obtain accurate/complete ROS d/t: Lethargy VTE Information - Inpt Only VTE Present on Admission: No Patient Problems: Active and Suspected Problems (Last Reviewed 02/10/20 @ 16:[address] Benedicto Davis MD) Hypercarbia (Acute) UTI (urinary tract infection) (Acute) - Physical Exam Vitals/I&O's: Vital Signs Temp Pulse Resp BP Pulse Ox 97.5 F L 80 21 H 101/68 91 05/27/20 17:43 05/27/20 19:40 05/27/20 19:40 05/27/20 17:43 05/27/20 19:40 Oxygen Flow Rate (L/min) 4 Oxygen Delivery Method Nasal Cannula Weight: 337 lb 11.971 oz Body Mass Index (BMI) 52.9 Finger Stick Blood Glucose 155 Intake and Output for Last 24 Hours 05/25/20 05/26/20 05/27/20 23:59 23:59 23:59 Intake Total 50 / 50 Balance 50 / 50 General: Lethargic, - - Responsive to mild stimulation HEENT: Atraumatic, PERRLA, Normocephalic Oral: Dry Mucosa Neck: Supple, No JVD Lungs: No rhonchi, No wheeze, No rales, Diminished, - - Poor air movement Cardiovascular: Regular rate, Regular Rhythm, Normal S1, Normal S2, No murmurs Abdomen: Soft, Non Tender, Non-Distended, No Hepato-splenomegaly Extremities: Capillary Refill Less than 3 Seconds, Edema Skin: No rashes, No breakdown Neurological: - - Lethargic accurate neuro exam is unable to be completed Psych/Mental Status: - - Lethargic unable to complete accurate psych/mental status exam Laboratory Results 05/27/20 15:10: WBC 4.7, RBC 3.46 L, Hgb 9.1 L, Hct 33.5 L, MCV 96.8, MCH 26.3 L , MCHC 27.2 L, RDW Std Deviation 67.7 H, RDW Coeff of Shannan 19.0 H, Plt Count 214, MPV 11.5, Immature Gran % (Auto) 0.200, Neut % (Auto) 64.1, Lymph % (Auto) 22.9, [place] % (Auto) 7.7, Eos % (Auto) 4.5, Baso % (Auto) 0.6, Absolute Neuts (auto) 3.0, Absolute Lymphs (auto) 1.07, Nucleated RBC % 0, Platelet Estimate ADEQUATE, Anisocytosis 1+, Stomatocytes 1+ 05/27/20 15:10: Sodium 141, Potassium 3.5, Chloride 92 L, Carbon Dioxide > 45.0 H*, Anion Gap TNP, BUN 12, Creatinine 0.69, Estim Creat Clear Calc 89.59, Est GFR (MDRD) Af Amer 114, Est GFR (MDRD) Non-Af 94, BUN/Creatinine Ratio 17.4, Glucose 111 H, Calcium 8.9, Troponin I < 0.015 05/27/20 15:10: B-Natriuretic Peptide 487.9 H 05/27/20 15:10: Urine Color Yellow, Urine Clarity Sl. Cloudy, Urine pH 6.0, Ur Specific [place] 1.020, Urine Protein 15 H, Urine Glucose (UA) Normal, Urine Ketones Negative, Urine Occult Blood 25 H, Urine Nitrite Negative, Urine Bilirubin Negative, Urine Urobilinogen Normal, Ur Leukocyte Esterase 500 H, Urine RBC 0 SEEN, Urine WBC 50-100 SEEN, Ur Squamous Epith Cells 10-25 SEEN, Urine Bacteria 0 SEEN, Hyaline Casts 10-25 SEEN, Urine Mucus 0 SEEN, Urine Yeast 1+ 05/27/20 16:15: Specimen Type ART, Sample Site L Radial, pH 7.32 L, Bicarbonate Actual 57.5 H, Total CO2 > 50, Base Excess > 30 H, O2 Saturation 93 L, ABG pCO2 112.5 H*, ABG pO2 81, David Test Positive, O2 Delivery Device Cannula, Liter Flow 4.0 Current Medications Acetaminophen (Acetaminophen 325 Mg Tablet) 650 mg PO Q6H PRN PRN PRN Reason: Pain Score 1-10/Temp > 100.7 F Enoxaparin Sodium (Enoxaparin 40 Mg/0.4 Ml Syringe) 40 mg SC DAILY MANOJ Melatonin (Melatonin 3 Mg Tablet) 3 mg PO QHS PRN PRN PRN Reason: INSOMNIA Ondansetron HCl (Ondansetron 4 Mg/2 Ml Vial) 4 mg IV Q8H PRN PRN PRN Reason: NAUSEA/VOMITING Sodium Chloride (0.9% Saline Lock 10 Ml Syringe) 10 - 40 ml IV UD PRN PRN Reason: SALINE FLUSH Assessment/Plan All Active Problems (Last Reviewed 02/10/20 @ 16:[address] Benedicto Davis MD) Hypercarbia (Acute) UTI (urinary tract infection) (Acute) Chronic diastolic (congestive) heart failure (Acute) Acute blood loss anemia (Resolved) Bronchitis (Resolved) Cellulitis (Resolved) Chest pain (Resolved) Dyspnea (Resolved) Hematoma of left lower leg (Resolved) Hematoma of leg (Resolved) Open wound of right lower leg (Resolved) Pneumonia (Resolved) Pulmonary edema (Resolved) Secondary pulmonary arterial hypertension (Resolved) Sepsis (Resolved) 1. Acute on chronic hypoxic and hypercapnic respiratory failure secondary to acute on chronic diastolic CHF and pulmonary hypertension/chronic COPD/JSAMIN -Her PCO2 was elevated to 112, unfortunately for some reason between leaving the ER and arriving to the PCU her BiPAP was off and she became even more lethargic the BiPAP was quickly replaced and she started to become more alert though still lethargic. We will repeat ABG now that she is more consistent on the BiPAP to see how much ground we lost -Given this is a readmission in less than 2 weeks, will consult cardiology and pulmonology for assistance -We will repeat an ABG in the morning, continue with Lasix 40 mg IV twice daily 2. Chronic A. fib/HTN/HLD/pulmonary hypertension/acute on chronic diastolic CHF -Blood pressures are stable -continue with her Cardizem and metoprolol -Transition her Lasix to IV Lasix -Continue with Lipitor -Continue with Eliquis 3. Hypothyroidism -Stable -Continue Synthroid 4. Chronic normocytic anemia -Hemoglobin is 9.1 which is at baseline -We will monitor 5. History of Proteus infection of the left calf -She had a hematoma secondary to a mechanical fall -We will consult wound care nurse DVT: Eliqufalguni Inpatient E&M: [id number] Init Hosp L3
--- NOTE | 2020-05-27 20:35 | CPS ---
Abg critical results called to Dr Enciso @[id number]/27/2020 Pco2 93
[2020-05-27 21:06] LABS: Allen Test Positive; Base Excess 30 mmol/L (-2 to +2); Bicarbonate 54.8 mmol/L (22-26); Blood Gas Specimen Type ART; FI02 40; O2 Delivery Device BiPAP; PEEP 12; PO2 63 mmHG (75-100); RR 14; SITE L Radial; SO2 89 % (95-99); Total Carbon Dioxide > 50 mmol/L; Vt 450; pH 7.38 (7.35-7.45)
--- NOTE | 2020-05-27 22:23 | PCM.PN.BLA ---
Progress Note Nurse reports that patient's is lethargic and systolic blood pressure is in the 70s with map of 50. Patient was examined at the bedside. Nurse reported patient's is improving in her mental status. Patient still appears lethargic. Heart sounds S1-S2 present Lungs are diminished. Left leg in Jayesh wrap. Right leg edematous Hypotension Discussed with cardiology on-call. Okay to give 500 mL normal saline. If patient does not respond we will transfer patient to the unit and give another dose of 500 MLS. Patient with significant hypercapnia on BiPAP. Continue BiPAP at this time. If patient becomes more lethargic will intubate. Discussed CODE STATUS with patient. Patient report that she is a full code. Will discontinue metoprolol and Cardizem at this time. STROKE Vital Signs/Narrative: Vital Signs Temp Pulse Resp BP Pulse Ox 05/27/20 22:00 97.3 F L 66 20 H 77/41 L 100 05/27/20 21:45 97.2 F L 59 L 19 H 85/49 L 100 05/27/20 21:30 97.2 F L 79 19 H 79/46 L 100 05/27/20 19:55 97.2 F L 71 19 H 102/57 L 100 05/27/20 19:40 80 21 H 91
[2020-05-28] VITALS (45 sets, daily range): BP systolic 75–113; BP diastolic 51–78; PULSE 72–99; RESP 13–28; TEMP 36.7–37.6; O2SAT 90–490
[2020-05-28] MEDS: Acetaminophen 325 MG Tablet 650 MG PO ×2 (01:16→18:46)
--- NOTE | 2020-05-28 01:28 | CPS ---
Critical ABG results read back to Dr. Grey
--- NOTE | 2020-05-28 01:57 | NURSING ---
BP was not registering on monitor when pt came to floor.
[2020-05-28] MEDS: 0.9% Normal Saline 1,000 ML 500 ML IV (02:14)
[2020-05-28 02:31] LABS: Allen Test Positive; Base Excess 25 mmol/L (-2 to +2); Bicarbonate 50.7 mmol/L (22-26); Blood Gas Specimen Type ART; FI02 45; O2 Delivery Device BiPAP; PEEP 12; PO2 58 mmHG (75-100); RR 14; SITE L Radial; SO2 86 % (95-99); Total Carbon Dioxide > 50 mmol/L; pCO2 89.1 mmHg (35-45); pH 7.36 (7.35-7.45)
[2020-05-28 04:54] LABS: Absolute Lymphocyte Count 1.23 X10^3/uL (0.83-4.51); Absolute Neutrophil Count 2.3 X10^3/uL (2.0-7.7); Basophil# 0.04 X10^3/uL; Basophil% 0.9 % (0-1); Eosinophil# 0.26 X10^3/uL; Eosinophils% 6.1 % (0-5); Hematocrit 31.6 % (37-47); Hemoglobin 8.4 g/dL (12.0-15.0); Lymphocyte # 1.23 X10^3/ul (4.0); Lymphocyte % 29.1 % (19-41); Mean Corp Hgb Conc 26.6 g/dL (32-36); Mean Corpuscular Volume 97.8 fL (81-99); Mean Platelet Vol. 11.3 fl (6.2-12.0); Monocyte# 0.35 X10^3/uL; Monocyte% 8.3 % (0-10); NRBC Flagged by Analyzer 0 % (0-5); Neutrophil # 2.34 X10^3/uL (2.7-7.7); Neutrophil % 55.4 % (47-70); POSITIVE MORPHOLOGY YES; Platelet Count 199 K/mm3 (150-450); RBC Distribution Width CV 19.1 % (11.6-14.6); RBC Distribution Width SD 68.1 fl (35.1-43.9); Red Blood Count 3.23 M/mm3 (4.2-5.4); White Blood Count 4.2 K/mm3 (4.4-11.0)
[2020-05-28 05:02] LABS: Differential Indicated SCAN CRITERIA MET
[2020-05-28 05:12] LABS: BUN 11 mg/dL (7-18); BUN/Creat Ratio 21.2 RATIO (10-20); Calcium,Total 8.4 mg/dL (8.5-10.1); Carbon Dioxide > 45.0 mmol/L (21.0-32.0); Chloride 94 mmol/L (98-107); Creatinine, Serum 0.52 mg/dL (0.55-1.02); EST Glomerular Filtration Rate 130 mL/min (>60); Est Glom Filt Rate - Afr Amer 157 mL/min (>60); Estimated Creatinine Clearance 118.87 ml/min; Glucose 82 mg/dL (74-106); Potassium 3.5 mmol/L (3.5-5.1); Sodium Level 143 mmol/L (136-145)
[2020-05-28 05:49] LABS: Differential Comment SCANNED
[2020-05-28 05:52] LABS: Anisocytosis 1+; Ovalocyte RARE
[2020-05-28 05:53] LABS: Hypochromasia 1+
[2020-05-28] MEDS: 0.9% Saline Lock 10 ML Syringe IV ×3 (08:40→18:48)
--- NOTE | 2020-05-28 09:39 | PN_ITS ---
Subjective: Chief complaint: Follow-up after admission for acute on chronic diastolic CHF/cor pulmonale and acute on chronic hypoxic and hypercapnic respiratory failure. Patient seen and examined. Overnight, patient developed hypotension, received bolus of IV fluids. Today, blood pressure is borderline but improved. She reported that her breathing is getting better, remains on BiPAP. Denied any chest pain. She is afebrile, heart rate stable, blood pressure has been around 80 systolic, on BiPAP. - Physical Exam Vitals/I&O's: Vital Signs Temp Pulse Resp BP Pulse Ox 98.0 F 88 26 H 85/54 L 95 05/28/20 04:00 05/28/20 07:20 05/28/20 07:20 05/28/20 07:00 05/28/20 07:20 Oxygen Flow Rate (L/min) 4 Oxygen Delivery Method Bi-pap Weight: 334 lb 3.2 oz Body Mass Index (BMI) 52.9 Finger Stick Blood Glucose 155 Intake and Output for Last 24 Hours 05/26/20 05/27/20 05/28/20 23:59 23:59 23:59 Intake Total 550.0 / 550.0 1000 / 1000 Output Total 450 / 450 Balance 550.0 / 550.0 550 / 550 General: Alert, Cooperative, - - She is moderately short of breath, on BiPAP. HEENT: Atraumatic, PERRLA, EOMI, Normocephalic Oral: Moist Mucosa, No Gingival or Mucosal Lesions/ Ulcerations Neck: Supple, No JVD, Negative Carotid Bruits, Trachea Midline, Thyroid Normal Size and Texture Lungs: No wheeze, No rales, Diminished, Rhonchi, Short of Breath, - - Decreased breath sounds bilateral, scattered rhonchi. Cardiovascular: Normal S1, Normal S2, PMI Normal, Irregular Rate Abdomen: Bowel Sounds Present, Soft, Non Tender, Non-Distended, No Hepato- splenomegaly, Obese Extremities: No clubbing, No cyanosis, Edema Skin: No rashes, No breakdown Lymphatic: No Cervical, Supraclavicular, or Inguinal Adenopathy Neurological: Cranial nerves II-XII grossly intact, Motor Exam 5/5 strength throughout Psych/Mental Status: Normal Affect, Appropriate Laboratory Results 05/27/20 15:10: WBC 4.7, RBC 3.46 L, Hgb 9.1 L, Hct 33.5 L, MCV 96.8, MCH 26.3 L , MCHC 27.2 L, RDW Std Deviation 67.7 H, RDW Coeff of Shannan 19.0 H, Plt Count 214, MPV 11.5, Immature Gran % (Auto) 0.200, Neut % (Auto) 64.1, Lymph % (Auto) 22.9, [place] % (Auto) 7.7, Eos % (Auto) 4.5, Baso % (Auto) 0.6, Absolute Neuts (auto) 3.0, Absolute Lymphs (auto) 1.07, Nucleated RBC % 0, Platelet Estimate ADEQUATE, Anisocytosis 1+, Stomatocytes 1+ 05/27/20 15:10: Sodium 141, Potassium 3.5, Chloride 92 L, Carbon Dioxide > 45.0 H*, Anion Gap TNP, BUN 12, Creatinine 0.69, Estim Creat Clear Calc 89.59, Est GFR (MDRD) Af Amer 114, Est GFR (MDRD) Non-Af 94, BUN/Creatinine Ratio 17.4, Glucose 111 H, Calcium 8.9, Troponin I < 0.015 05/27/20 15:10: B-Natriuretic Peptide 487.9 H 05/27/20 15:10: Urine Color Yellow, Urine Clarity Sl. Cloudy, Urine pH 6.0, Ur Specific [place] 1.020, Urine Protein 15 H, Urine Glucose (UA) Normal, Urine Ke tones Negative, Urine Occult Blood 25 H, Urine Nitrite Negative, Urine Bilirubin Negative, Urine Urobilinogen Normal, Ur Leukocyte Esterase 500 H, Urine RBC 0 SEEN, Urine WBC 50-100 SEEN, Ur Squamous Epith Cells 10-25 SEEN, Urine Bacteria 0 SEEN, Hyaline Casts 10-25 SEEN, Urine Mucus 0 SEEN, Urine Yeast 1+ 05/27/20 16:15: Specimen Type ART, Sample Site L Radial, pH 7.32 L, Bicarbonate Actual 57.5 H, Total CO2 > 50, Base Excess > 30 H, O2 Saturation 93 L, ABG pCO2 112.5 H*, ABG pO2 81, David Test Positive, O2 Delivery Device Cannula, Liter Flow 4.0 05/27/20 20:34: Specimen Type ART, Sample Site L Radial, pH 7.38, Bicarbonate Actual 54.8 H, Total CO2 > 50, Base Excess 30 H, O2 Saturation 89 L, O2 % 40, ABG pCO2 93.0 H*, ABG pO2 63 L, David Test Positive, Respiration Rate 14, O2 Delivery Device BiPAP, Tidal Volume 450, POC PEEP 12 05/27/20 23:54: Specimen Type ART, Sample Site L Radial, pH 7.36, Bicarbonate Actual 50.7 H, Total CO2 > 50, Base Excess 25 H, O2 Saturation 86 L, O2 % 45, ABG pCO2 89.1 H*, ABG pO2 58 L, David Test Positive, Respiration Rate 14, O2 Delivery Device BiPAP, POC PEEP 12 05/28/20 04:35: WBC 4.2 L, RBC 3.23 L, Hgb 8.4 L, Hct 31.6 L, MCV 97.8, MCH 26.0 L, MCHC 26.6 L, RDW Std Deviation 68.1 H, RDW Coeff of Shannan 19.1 H, Plt Count 199, MPV 11.3, Immature Gran % (Auto) 0.200, Neut % (Auto) 55.4, Lymph % (Auto) 29.1, [place] % (Auto) 8.3, Eos % (Auto) 6.1 H, Baso % (Auto) 0.9, Absolute Neuts (auto) 2.3, Absolute Lymphs (auto) 1.23, Nucleated RBC % 0, Differential Comment SCANNED, Hypochromasia 1+, Anisocytosis 1+, Ovalocytes RARE 05/28/20 04:35: Sodium 143, Potassium 3.5, Chloride 94 L, Carbon Dioxide > 45.0 H*, Anion Gap TNP, BUN 11, Creatinine 0.52 L, Estim Creat Clear Calc 118.87, Est GFR (MDRD) Af Amer 157, Est GFR (MDRD) Non-Af 130, BUN/Creatinine Ratio 21.2 H, Glucose 82, Calcium 8.4 L Clinical Impression(s) from Imaging Studies Chest X-Ray 05/27/20 14:50 IMPRESSION: Findings in keeping with CHF with right basilar atelectasis and/or infiltrate and right pleural effusion. Moderate size cardiomegaly. A pericardial effusion cannot be excluded. Electronically Signed: Fernie Luna MD at 15:07 EST , Service support , Current Medications Acetaminophen (Acetaminophen 325 Mg Tablet) 650 mg PO Q6H PRN PRN PRN Reason: Pain Score 1-10/Temp > 100.7 F Last Admin: 05/28/20 01:16 Dose: 650 mg Documented by: Albuterol Sulfate (Albuterol 2.5 Mg/3 Ml Vial.Neb.) 2.5 mg INHALATION Q4H PRN PRN PRN Reason: WHEEZING Apixaban (Apixaban 5 Mg Tablet) 5 mg PO BID [facility] Last Admin: 05/27/20 22:42 Dose: Not Given Documented by: Atorvastatin Calcium (Atorvastatin Calcium 40 Mg Tablet) 40 mg PO QHS [facility] Last Admin: 05/27/20 22:41 Dose: Not Given Documented by: Doxepin HCl (Doxepin Hcl 50 Mg Capsule) 50 mg PO QHS [facility] Last Admin: 05/27/20 22:42 Dose: Not Given Documented by: Ferrous Sulfate (Ferrous Sulfate 325 Mg Tablet) 325 mg PO DAILY@1200 [facility] Fluoxetine HCl (Fluoxetine 20 Mg Capsule) 60 mg PO DAILY [facility] Gabapentin (Gabapentin 300 Mg Capsule) 300 mg PO TID [facility] Last Admin: 05/28/20 06:11 Dose: Not Given Documented by: Levothyroxine Sodium (Levothyroxine 50 Mcg Tablet) 50 mcg PO DAILY@0600 [facility] Last Admin: 05/28/20 06:11 Dose: Not Given Documented by: Melatonin (Melatonin 3 Mg Tablet) 3 mg PO QHS PRN PRN PRN Reason: INSOMNIA Ondansetron HCl (Ondansetron 4 Mg/2 Ml Vial) 4 mg IV Q8H PRN PRN PRN Reason: NAUSEA/VOMITING Potassium Chloride (Potassium Chloride Oral Tablet 20 Meq) [facility] Sodium Chloride (0.9% Saline Lock 10 Ml Syringe) 10 - 40 ml IV UD PRN PRN Reason: SALINE FLUSH Last Admin: 05/28/20 08:40 Dose: 10 ml Documented by: Medical Necessity - Tobacco Use Smoking Status: Unknown if ever smoked Tobacco Use: Cigarettes Assessment/Plan This is a 54 years old female patient presented to the emergency room from the senior living because of worsening shortness of breath and she was found to have acute on chronic diastolic CHF with cor pulmonale complicated by acute on chronic hypoxic and hypercapnic respiratory failure and also found to have acute cystitis. #1 acute on chronic diastolic CHF/cor pulmonale: Patient received IV Rocephin but her blood pressure dropped. Last night, received IV fluid bolus. This morning, blood pressure is improving but still borderline. EKG revealed A. fib, rate is controlled, no acute ischemic changes. Troponin was negative. Chest x- ray reviewed. She had an echocardiogram done on April, that showed eje ction fraction 55%, other findings reviewed. Cardiology consulted. Critical care is on the case. Plan for intermittent Lasix if blood pressure allows, repeat CBC and BMP tomorrow morning. #2 acute on chronic hypoxic and hypercapnic respiratory failure: Secondary to #1. Last ABG from this night revealed pH of 7.36, PCO2 of 89 which is improving, PO2 of 58%. Currently, she is on BiPAP. Plan for IV diuresis if blood pressure allows. #3 acute cystitis: Urinalysis reviewed. Plan to start IV Rocephin, urine culture sent. #4 chronic atrial fibrillation: Heart rate stable, currently only on Eliquis. Metoprolol and Cardizem held because of low blood pressure. #5 hypertension: Currently, she is hypotensive, received IV fluid bolus overnight. Plan as above. #6 hypothyroidism: Stable, continue levothyroxine. #7 chronic anemia: Due to anemia of chronic disease. Hemoglobin has been around anywhere between 6 to 8 g/dL. Today's hemoglobin is 8.4 g/dL, stable at baseline. #8 hyperlipidemia: Continue statins. #9 DVT prophylaxis: Continue Eliquis. This note was generated with [employer] dictation software. It may contain incorrect words, spelling, and punctuation that were not noted in checking the note before signing. Inpatient E&M: [id number] [facility] Hosp L3
--- NOTE | 2020-05-28 10:48 | CASEMGMT ---
Social Work Pt is a current resident at [facility]. 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 Pt will need a negative covid test within 72 hours of discharge. Pt is not alert at this time and unable to confirm plan to return to [facility]. VM left with pt significant other. Plan: [facility], when medically ready. ELMER Chandler
--- NOTE | 2020-05-28 10:48 | PCM.CON.CC ---
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 Comment: Derianis (6) JASMIN (obstructive sleep apnea) Status: Chronic Comment: Bipap 01/10 (7) Chronic atrial fibrillation Status: Chronic (8) Chronic diastolic (congestive) heart failure Status: Chronic Comment: on chronic (9) Essential (primary) hypertension Status: Chronic Reason for Consult Date of Consultation: 05/28/20 Reason for Consultation: Respiratory failure History of Present Illness: The patient is a 54 year old F, with past medical history listed below, who presented to [facility] on 05/27/2020 secondary to worsening shortness of breath while at [facility]. Patient reportedly had had decompensation over the previous 12 hours. Patient had been complaining of worsening shortness of breath over the last week and saturations reportedly were as low as 50%, but this have responded to nasal cannula oxygen. Patient does wear 4 L nasal cannula at baseline. Patient reportedly had gone to the ER instead of her medical coding manager. Patient reportedly has had a 20+ pound weight gain over the last week or so and felt that her Lasix was not working. Patient reportedly had had COVID-19 in March and was hospitalized for 2 weeks. Patient also had a CHF exacerbation at that time. Patient had denied any fever, chills, cough, nausea, vomiting or diarrhea. In the ER, patient was tachypneic at 22 breaths/min. Saturations were acceptable at 96% and patient was afebrile. Laboratory work-up showed an anemia with a hemoglobin of 9.1 and chemistries were significant for a bicarbonate greater than 45, but normal renal function. Troponins were negative, but BNP was elevated at almost 500. EKG showed atrial fibrillation and UA was suggestive of a possible UTI. Patient was given a dose of IV Rocephin in the ER and IV Lasix for reported CHF exacerbation. Patient did have an ABG showing a partially compensated respiratory acidosis. Patient was placed on AVAPS with elevated EPAP and admitted to the intensive care unit. Since being in the intensive care unit, patient has remained dependent on BiPAP therapy. ABG shows improvement in CO2 retention. Oxygenation has been doing well. Blood pressures have been marginal, but no interventions with pressors have been required. Patient was given some fluid overnight by the night hospitalist. Patient will open her eyes to voice, but is not able to add much additional information. Unable to obtain a review of systems secondary to mental status. intermediate records were reviewed. Past Medical History Past Medical History (Chronic Problems): Chronic Problems (Last Updated 05/28/20 @ 09:[address] 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) Z79.01 Eliquis JASMIN (obstructive sleep apnea) (Chronic) G47.33 Bipap 10/4 Chronic atrial fibrillation (Chronic) I48.2 Chronic diastolic (congestive) heart failure (Chronic) I50.32 on chronic Essential (primary) hypertension (Chronic) I10 History of blood transfusion Z92.89 Pancreatitis K85.90 Chronic bronchitis J42 Depression F32.9 Diabetes type 2, controlled E11.9 Hypothyroidism E03.9 Obesity, Class III, BMI 40-49.9 (morbid obesity) [id number] Osteoarthritis M19.90 Secondary pulmonary arterial hypertension (Inactive) I27.21 Allergies No Known Allergies Allergy (Verified 05/27/20 13:51) Home Medications: Ambulatory Orders Medication Instructions Recorded Atorvastatin Calcium 40 mg PO QHS 04/24/19 Doxepin HCl 50 mg PO QHS 04/24/19 Gabapentin [Neurontin] 300 mg PO TID 04/24/19 diltiazem HCl 180 mg capsule,24 180 mg PO DAILY #90 cap 03/26/20 hr,extended release Apixaban [Eliquis] 5 mg PO BID 05/06/20 Ascorbic Acid [Vitamin C] 1,000 mg PO BID 05/06/20 Ferrous Sulfate 325 mg PO DAILY 05/06/20 Guaifenesin [Mucinex] 600 mg PO BID 05/06/20 Levothyroxine Sodium [Synthroid] 50 mcg PO DAILY 05/06/20 Metoprolol Tartrate [Lopressor 25 mg PO BID 05/06/20 (beta miriam)] Albuterol Inhaler [Ventolin Hfa 2 puff INHALATION Q4H PRN PRN 05/24/20 (SP)] Menthol [Biofreeze] 1 applic TP QHS 05/24/20 Nystatin Powder [Mycostatin Powder] 1 applic TOPICAL BID 05/24/20 Fluoxetine [Prozac] 60 mg PO DAILY 05/27/20 Furosemide Liquid [Lasix Liquid] 20 mg IM DAILY 05/27/20 Furosemide [Lasix] 40 mg PO BID 05/27/20 Potassium Chloride Oral Tablet 40 meq PO DAILY 05/27/20 [K-Dur] Surgical History: Surgical History (Last Updated 05/28/20 @ 09:[address] Abdoul Cuellar MD) H/O umbilical hernia repair Z98.890, Z87.19 History of skin graft Z94.5 Excisional debridement, nonhealing hematoma ulcer, right anterior leg with split-thickness skin graft reconstruction from lower anterior abdominal wall (126 square cm) - 09/21/16 History of tonsillectomy and adenoidectomy Z98.890 Hx of cholecystectomy Z90.49 Surgical History: cholecystectomy, - - arthroscopic surgery on the knee, umbilical hernia repair. Debridement hematoma right leg in 2007. surgical preparation right anterior leg with incision and drainage and excisional debridement hematoma (380 cm2) - 05/17/16. Excisional debridement nonhealing hematoma ulcer right anterior leg with STSG reconstruction from lower anterior abdominal wall (126 cm2) - 09/21/16. 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 AGENT History: No pertinent VEHICLE INSURANCE AGENT history Lives: [facility] Smoking Status: Unknown if ever smoked Tobacco Use: Cigarettes Alcohol: None Drugs: None - *Family History Paternal Family History: Family History (Last Reviewed 05/06/20 @ 17:05 by Rebecca Castellano NP, ISOBUTYLENE OPERATOR CHIEF-C) Father CAD (coronary artery disease) Pacemaker CHF (congestive heart failure) Diabetes Heart disease Hypertension High cholesterol COPD (chronic obstructive pulmonary disease) Brother Anxiety Diabetes Heart disease Hypertension High cholesterol History Items: Heart Disease - father at 64 YOA with an AK, Hypertension, Stroke Maternal Family History: Family History (Last Reviewed 05/06/20 @ 17:05 by Rebecca Castellano ISOBUTYLENE OPERATOR CHIEF, ISOBUTYLENE OPERATOR CHIEF-C) Father CAD (coronary artery disease) Pacemaker CHF (congestive heart failure) Diabetes Heart disease Hypertension High cholesterol COPD (chronic obstructive pulmonary disease) Brother Anxiety Diabetes Heart disease Hypertension High cholesterol History Items: Hypertension, Stroke Objective: Chest x-ray was personally reviewed and shows bilateral fluffy infiltrates bilaterally. Right greater than left. Patient did have a pulmonary function test in October 2018 showing a mild restrictive ventilatory defect with a disproportionate reduction in diffusion capacity (FVC 72%, FEV1 71%, TLC 84%, DLCO 42%). Patient also had a recent echocardiogram in April showing an EF of 55% with mildly dilated right ventricle, but inability to estimate RVSP. - Physical Exam Vitals/I&O's: Vital Signs Temp Pulse Resp BP Pulse Ox 37.2 C 80 18 84/69 L 100 05/28/20 09:00 05/28/20 09:30 05/28/20 09:30 05/28/20 09:30 05/28/20 09:30 Oxygen Flow Rate (L/min) 30 Oxygen Delivery Method Bi-pap Weight: 151.591 kg Body Mass Index (BMI) 52.9 Finger Stick Blood Glucose 155 Intake and Output for Last 24 Hours 05/26/20 05/27/20 05/28/20 23:59 23:59 23:59 Intake Total 550.0 / 550.0 1000 / 1000 Output Total 450 / 450 Balance 550.0 / 550.0 550 / 550 General: - - RASS -1. Morbidly obese. HEENT: Atraumatic, PERRLA, EOMI, Normocephalic, - - Slight scleral injection without icterus Oral: No Gingival or Mucosal Lesions/ Ulcerations, Dry Mucosa, - - Crowded posterior pharynx Neck: Supple, No Nodes, Trachea Midline, - - Unable to assess JVD secondary to body habitus Lungs: No rhonchi, No wheeze, Diminished, Rales Cardiovascular: Normal S1, Normal S2, No murmurs, Irregular Rate, No rub noted, No Gallop, - - Diminished heart sounds secondary to body habitus and positioning Abdomen: Bowel Sounds Present, Soft, Non Tender, Non-Distended, Obese Extremities: No clubbing, No cyanosis, Edema - Anasarca Skin: - - Some induration of the right breast and pannus with dependent venous stasis changes Musculoskeletal: No Tenderness to Palpation of Joints or Extremities Lymphatic: No Cervical, Supraclavicular, or Inguinal Adenopathy Neurological: Cranial nerves II-XII grossly intact, Neuro grossly intact, Motor Exam 5/5 strength throughout Psych/Mental Status: Flat Affect Laboratory Results 05/27/20 15:10: WBC 4.7, RBC 3.46 L, Hgb 9.1 L, Hct 33.5 L, MCV 96.8, MCH 26.3 L, MCHC 27.2 L, RDW Std Deviation 67.7 H, RDW Coeff of Shannan 19.0 H, Plt Count 214, MPV 11.5, Immature Gran % (Auto) 0.200, Neut % (Auto) 64.1, Lymph % (Auto) 22.9, [place] % (Auto) 7.7, Eos % (Auto) 4.5, Baso % (Auto) 0.6, Absolute Neuts (auto) 3.0, Absolute Lymphs (auto) 1.07, Nucleated RBC % 0, Platelet Estimate ADEQUATE, Anisocytosis 1+, Stomatocytes 1+ 05/27/20 15:10: Sodium 141, Potassium 3.5, Chloride 92 L, Carbon Dioxide > 45.0 H*, Anion Gap TNP, BUN 12, Creatinine 0.69, Estim Creat Clear Calc 89.59, Est GFR (MDRD) Af Amer 114, Est GFR (MDRD) Non-Af 94, BUN/Creatinine Ratio 17.4, Glucose 111 H, Calcium 8.9, Troponin I < 0.015 05/27/20 15:10: B-Natriuretic Peptide 487.9 H 05/27/20 15:10: Urine Color Yellow, Urine Clarity Sl. Cloudy, Urine pH 6.0, Ur Specific [place] 1.020, Urine Protein 15 H, Urine Glucose (UA) Normal, Urine Ketones Negative, Urine Occult Blood 25 H, Urine Nitrite Negative, Urine Bilirubin Negative, Urine Urobilinogen Normal, Ur Leukocyte Esterase 500 H, Urine RBC 0 SEEN, Urine WBC 50-100 SEEN, Ur Squamous Epith Cells 10-25 SEEN, Urine Bacteria 0 SEEN, Hyaline Casts 10-25 SEEN, Urine Mucus 0 SEEN, Urine Yeast 1+ 05/27/20 16:15: Specimen Type ART, Sample Site L Radial, pH 7.32 L, Bicarbonate Actual 57.5 H, Total CO2 > 50, Base Excess > 30 H, O2 Saturation 93 L, ABG pCO2 112.5 H*, ABG pO2 81, David Test Positive, O2 Delivery Device Cannula, Liter Flow 4.0 05/27/20 20:34: Specimen Type ART, Sample Site L Radial, pH 7.38, Bicarbonate Actual 54.8 H, Total CO2 > 50, Base Excess 30 H, O2 Saturation 89 L, O2 % 40, ABG pCO2 93.0 H*, ABG pO2 63 L, David Test Positive, Respiration Rate 14, O2 Delivery Device BiPAP, Tidal Volume 450, POC PEEP 12 05/27/20 23:54: Specimen Type ART, Sample Site L Radial, pH 7.36, Bicarbonate Actual 50.7 H, Total CO2 > 50, Base Excess 25 H, O2 Saturation 86 L, O2 % 45, ABG pCO2 89.1 H*, ABG pO2 58 L, David Test Positive, Respiration Rate 14, O2 Delivery Device BiPAP, POC PEEP 12 05/28/20 04:35: WBC 4.2 L, RBC 3.23 L, Hgb 8.4 L, Hct 31.6 L, MCV 97.8, MCH 26.0 L, MCHC 26.6 L, RDW Std Deviation 68.1 H, RDW Coeff of Shannan 19.1 H, Plt Count 199, MPV 11.3, Immature Gran % (Auto) 0.200, Neut % (Auto) 55.4, Lymph % (Auto) 29.1, [place] % (Auto) 8.3, Eos % (Auto) 6.1 H, Baso % (Auto) 0.9, Absolute Neuts (auto) 2.3, Absolute Lymphs (auto) 1.23, Nucleated RBC % 0, Differential Comment SCANNED, Hypochromasia 1+, Anisocytosis 1+, Ovalocytes RARE 05/28/20 04:35: Sodium 143, Potassium 3.5, Chloride 94 L, Carbon Dioxide > 45.0 H*, Anion Gap TNP, BUN 11, Creatinine 0.52 L, Estim Creat Clear Calc 118.87, Est GFR (MDRD) Af Amer 157, Est GFR (MDRD) Non-Af 130, BUN/Creatinine Ratio 21.2 H, Glucose 82, Calcium 8.4 L Current Medications Acetaminophen (Acetaminophen 325 Mg Tablet) 650 mg PO Q6H PRN PRN PRN Reason: Pain Score 1-10/Temp > 100.7 F Last Admin: 05/28/20 01:16 Dose: 650 mg Documented by: Albuterol Sulfate (Albuterol 2.5 Mg/3 Ml Vial.Neb.) 2.5 mg INHALATION Q4H PRN PRN PRN Reason: WHEEZING Apixaban (Apixaban 5 Mg Tablet) 5 mg PO BID [facility] Last Admin: 05/27/20 22:42 Dose: Not Given Documented by: Atorvastatin Calcium (Atorvastatin Calcium 40 Mg Tablet) 40 mg PO QHS [facility] Last Admin: 05/27/20 22:41 Dose: Not Given Documented by: Doxepin HCl (Doxepin Hcl 50 Mg Capsule) 50 mg PO QHS [facility] Last Admin: 05/27/20 22:42 Dose: Not Given Documented by: Ferrous Sulfate (Ferrous Sulfate 325 Mg Tablet) 325 mg PO DAILY@1200 [facility] Fluoxetine HCl (Fluoxetine 20 Mg Capsule) 60 mg PO DAILY [facility] Gabapentin (Gabapentin 300 Mg Capsule) 300 mg PO TID [facility] Last Admin: 05/28/20 06:11 Dose: Not Given Documented by: Levothyroxine Sodium (Levothyroxine 50 Mcg Tablet) 50 mcg PO DAILY@0600 [facility] Last Admin: 05/28/20 06:11 Dose: Not Given Documented by: Melatonin (Melatonin 3 Mg Tablet) 3 mg PO QHS PRN PRN PRN Reason: INSOMNIA Ondansetron HCl (Ondansetron 4 Mg/2 Ml Vial) 4 mg IV Q8H PRN PRN PRN Reason: NAUSEA/VOMITING Potassium Chloride (Potassium Chloride Oral Tablet 20 Meq) [facility] Sodium Chloride (0.9% Saline Lock 10 Ml Syringe) 10 - 40 ml IV UD PRN PRN Reason: SALINE FLUSH Last Admin: 05/28/20 08:40 Dose: 10 ml Documented by: Clinical Impression(s) from Imaging Studies Chest X-Ray 05/27/20 14:50 IMPRESSION: Findings in keeping with CHF with right basilar atelectasis and/or infiltrate and right pleural effusion. Moderate size cardiomegaly. A pericardial effusion cannot be excluded. Electronically Signed: Fernie Luna MD at 15:07 EST , Service support , Assessment/Plan RECOMMENDATIONS: 1. Trial of diuresis 2. BiPAP breaks as tolerated. Continue AVAPS with sleep 3. Continue anticoagulation for now 4. No indication for scheduled bronchodilators IMPRESSIONS: 1. Acute on chronic combined respiratory failure secondary to acute on chronic diastolic CHF and cor pulmonale Patient's previous pulmonary function tests were not suggestive of COPD, but does have restriction with elevated pulmonary artery pressures. Clinical suspicion for cor pulmonale leading to hypotension. Patient may have an element of obesity hypoventilation syndrome and is on BiPAP at baseline. Given marginal blood pressures, would continue with diuretics in the intensive care. Okay to take BiPAP breaks as tolerated and follow with mental status. 2. Chronic A. fib/hypertension/hyperlipidemia/cor pulmonale/acute on chronic diastolic CHF Okay to continue with anticoagulation and rate control from my perspective. Blood pressures are marginal at this time, but clinical suspicion is starting forces will improve with diuresis. Patient will be given diuretics and have a Kay placed. Continue to monitor blood pressures. Likely not necessary to have an art line at this time, but will continue to evaluate. 3. Hypothyroidism/morbid obesity/history of Proteus infection/venous stasis Complicates care, management, recovery and prognosis. Okay to continue with baseline medications. No indication for transfusion at this time. Wound nurse will follow and intervene as necessary TIME: 33 minutes of critical care time spent addressing patient's acute on chronic combined respiratory failure, CHF, A. fib, review of all data and collaboration with care team (8 AM to 11 AM) 9xxxx: [id number] Critical care first hour
--- NOTE | 2020-05-28 10:49 | CASEMGMT ---
CLAYTON OYUSIF readmission note: Prior admission: Admitted 05/06/20 with CHF and discharged back to [facility] 05/11/20. Pt is a long-term resident of [facility]. Echo done 05/07 showed EF 55%. Pt also had recent hospitalization in March for COVID. Current admission: Admitted 05/27/20 with Acute on Chronic CHF. Per ER note, pt wears 4 L/M O2 @ baseline. Pt also wears CPAP for JASMIN. She presented with c/o SOB, which has been progressively worsening over the past week and had a 25 # wt gain in the past week or so. Pt had an appt to see her scale operator (Dr Bravo) 05/27 but reports she was late to her appt d/t transportation issues and so then decided to come to ER to be evaluated. Pt qualifies for a Palliative referral per the [facility] palliative screening tool at this time. Dr Bravo states ok for Palliative c/s at this time. Palliative updated at this time via @ [phone]. Face Sheet faxed to Palliative at this time. Rc LAZCANO RN, CM
[2020-05-28] MEDS: Furosemide 40 MG/4 ML Vial IV ×2 (10:59→17:18)
[2020-05-28] MEDS: Ceftriaxone 1 GM/50 ML BAG IV (12:36)
[2020-05-28] MEDS: Potassium Chloride Oral Tablet 20 MEQ 40 MEQ PO (12:49)
[2020-05-28] MEDS: Ferrous Sulfate 325 MG Tablet PO (12:50)
[2020-05-28] MEDS: FLUoxetine 20 MG Capsule 60 MG PO (12:50)
--- NOTE | 2020-05-28 17:12 | CON.PCM_ITS ---
Problem List (1) Peripheral neuropathy Status: Chronic (2) Shortness of breath Status: Deleted Comment: acute on chronic (3) Bilateral chronic knee pain Status: Chronic (4) Frequent falls Status: Chronic (5) H/O methicillin resistant Staphylococcus aureus Status: Chronic (6) Acute on chronic diastolic (congestive) heart failure Status: Deleted (7) Immobility Status: Deleted (8) Ulcer of left lower extremity with fat layer exposed Status: Chronic (9) Morbid obesity with BMI of 50.0-59.9, adult Status: Chronic (10) JASMIN (obstructive sleep apnea) Status: Chronic Comment: Bipap 01/10 (11) Chronic atrial fibrillation Status: Chronic (12) Essential (primary) hypertension Status: Chronic (13) FDC (current) use of anticoagulants Status: Chronic Comment: Eliquis History of Present Illness Date of Consult: 05/28/20 Reason for Consult: shortness of breath, uncontrolled peripheral neuropathy Requesting physician: [] Primary care physician: Dr. Nabor Garcia MD - History of Present Illness The patient is a 54 year old F with past medical history as below, being seen today for palliative care consultation. Patient reports she has uncontrolled peripheral neuropathy pain, significant immobility since January 2020, increased shortness of breath, and chronic bilateral knee pain. She presented on 05/27/2020 to [facility] secondary to worsening dyspnea over the course of approximately 1 week, with an acute decline less than 24 hours prior to presentation. Reports she had a 20+ pound weight gain over the course of about a week and was becoming increasingly weak. Her saturations were dipping into the 50s, however nasal cannula was effective in treating her hypoxia. 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 She was admitted to the intensive care unit for further management. Patient has been diuresed with Lasix been requiring BiPAP therapy. She is able to take breaks as tolerated but has significant CO2 retention. She is mildly tachycardic and appears to be in atrial fibrillation, for which she is anticoagulated with Eliquis. Also is somewhat hypotensive but asymptomatic. Patient is wearing AVAPS with sleep. Currently on nasal cannula and able to converse with me. Has mild conversational dyspnea. She is on IV antibiotics for acute cystitis. Originally, patient fell in January 2020 and developed a hematoma on her left leg. She went to rehab after being hospitalized, then tested positive for COVID-19 on March 13, 2020. On 03/26/2020, she had progressive shortness of breath and went to [place] emergency room. They ended up sending her to a Covid specialist in [place] and she was there for about 2 weeks. While at that facility, she was taken off multiple medications and her med list was cleaned up. Had been on oxaprozin and oxycodone 10 mg twice daily for chronic pain, however this caused significant confusion. She then was sent [facility] for further therapy. She has been unable to get out of bed and ambulate since January. States she has not been out of hospital gown since then and feels her quality of life is very poor. He was receiving physical therapy in the prison, however was not getting much better. She can stand for about 3 minutes at a time but has very poor activity tolerance. Goal is to be able to ambulate, get on a bedside commode by herself, and be able to provide her own personal care. Lives with her significant other, who is very attentive and supportive. Discussed the palliative care program and services that could be offered, as I feel she is appropriate for palliative care. Patient is interested in further information and would like to be seen as an outpatient. Once patient is discharged, we will have our RN visit her within 3 days and get her enrolled in the program. [] Patient Problems: Chronic Problems (Last Updated 05/28/20 @ 09:[address] Abdoul Cuellar MD) Peripheral neuropathy (Chronic) Bilateral chronic knee pain (Chronic) Morbid obesity with BMI of 50.0-59.9, adult (Chronic) Frequent falls (Chronic) H/O methicillin resistant Staphylococcus aureus (Chronic) Ulcer of left lower extremity with fat layer exposed (Chronic) Contusion of left lower leg, sequela (Chronic) FDC (current) use of anticoagulants (Chronic) Eliquis JASMIN (obstructive sleep apnea) (Chronic) Bipap 01/10 Chronic atrial fibrillation (Chronic) Chronic diastolic (congestive) heart failure (Chronic) on chronic Essential (primary) hypertension (Chronic) Surgical History: cholecystectomy, - - arthroscopic surgery on the knee, umbilical hernia repair. Debridement hematoma right leg in 2007. surgical preparation right anterior leg with incision and drainage and excisional debridement hematoma (380 cm2) - 05/17/16. Excisional debridement nonhealing hematoma ulcer right anterior leg with STSG reconstruction from lower anterior abdominal wall (126 cm2) - 09/21/16. Psychiatric History: No pertinent psych hx Home Medications: Ambulatory Orders Medication Instructions Recorded Atorvastatin Calcium 40 mg PO QHS 04/24/19 Doxepin HCl 50 mg PO QHS 04/24/19 Gabapentin [Neurontin] 300 mg PO TID 04/24/19 diltiazem HCl 180 mg capsule,24 180 mg PO DAILY #90 cap 03/26/20 hr,extended release Apixaban [Eliquis] 5 mg PO BID 05/06/20 Ascorbic Acid [Vitamin C] 1,000 mg PO BID 05/06/20 Ferrous Sulfate 325 mg PO DAILY 05/06/20 Guaifenesin [Mucinex] 600 mg PO BID 05/06/20 Levothyroxine Sodium [Synthroid] 50 mcg PO DAILY 05/06/20 Metoprolol Tartrate [Lopressor 25 mg PO BID 05/06/20 (beta miriam)] Albuterol Inhaler [Ventolin Hfa 2 puff INHALATION Q4H PRN PRN 05/24/20 (SP)] Menthol [Biofreeze] 1 applic TP QHS 05/24/20 Nystatin Powder [Mycostatin Powder] 1 applic TOPICAL BID 05/24/20 Fluoxetine [Prozac] 60 mg PO DAILY 05/27/20 Furosemide Liquid [Lasix Liquid] 20 mg IM DAILY 05/27/20 Furosemide [Lasix] 40 mg PO BID 05/27/20 Potassium Chloride Oral Tablet 40 meq PO DAILY 05/27/20 [K-Dur] Allergies No Known Allergies Allergy (Verified 05/27/20 13:51) Paternal Family History: Family History (Last Reviewed 05/06/20 @ 17:05 by Rebecca Castellano SEISMOGRAPH OPERATOR HELPER, SEISMOGRAPH OPERATOR HELPER-C) Father CAD (coronary artery disease) Pacemaker CHF (congestive heart failure) Diabetes Heart disease Hypertension High cholesterol COPD (chronic obstructive pulmonary disease) Brother Anxiety Diabetes Heart disease Hypertension High cholesterol History Items: Heart Disease - father at 64 YOA with an NE, Hypertension, Stroke Maternal Family History: Family History (Last Reviewed 05/06/20 @ 17:05 by Rebecca Castellano NP, SEISMOGRAPH OPERATOR HELPER-C) Father CAD (coronary artery disease) Pacemaker CHF (congestive heart failure) Diabetes Heart disease Hypertension High cholesterol COPD (chronic obstructive pulmonary disease) Brother Anxiety Diabetes Heart disease Hypertension High cholesterol History Items: Hypertension, Stroke - Social History Lives: Long Term Smoking Status: Former smoker Tobacco Use: Cigarettes Alcohol: None Drugs: None Code Status: Full Code Goals of Care: -improve quality of life -decrease neuropathy pain -improve mobilty, able to ambulate -improve shortness of breath Review of Systems Constitutional: Reports: Fever, Weakness, Weight Change, Fatigue. Denies: Anorexia, Chills, Night Sweats Eyes: Denies: Pain, Vision Change HEENT: Reports: Head Aches. Denies: Difficulty Swallowing, Nasal Congestion, Sinus Congestion, Sore Throat Cardiovascular: Reports: Edema, Orthopnea. Denies: Chest Pain, Palpitations, Syncope Respiratory: Reports: Shortness of Breath. Denies: Cough, Wheezing Gastrointestinal: Denies: Abdominal Pain, Constipation, Diarrhea, Nausea, Vomiting Genitourinary: Reports: Retention Musculoskeletal: Reports: Joint Pain, Joint stiffness, Leg Pain Skin: Reports: Dryness, Wounds Neurological: Reports: Balance problems, Numbness, Tingling, - - dysarthria at times. Denies: Tremor, Seizures Psychiatric: Reports: Anxiety, Depression Hematologic/ Lymphatic: Reports: Anemia, Easy Bruising, Hx of blood transfusion Physical Exam General: Alert, Oriented x3, Cooperative, No apparent distress HEENT: Atraumatic, PERRLA Oral: Dry Mucosa Neck: Supple, Trachea Midline, JVD, Bilateral Lungs: No wheeze, Diminished, Short of Breath, - - difficult to auscultate 2/2 body habitus Cardiovascular: Normal S1, Normal S2, No murmurs, Irregular Rate, Tachycardic Abdomen: Bowel Sounds Present, Soft, Non Tender, Obese Extremities: No clubbing, No cyanosis, Edema, Tenderness Skin: Ulcer/ Wound Musculoskeletal: Tenderness Lymphatic: No Cervical, Supraclavicular, or Inguinal Adenopathy Neurological: Cranial nerves II-XII grossly intact Psych/Mental Status: Normal Affect, Alert and oriented to time, place, person, mood and affect Objective: Vital Signs Temp Pulse Resp BP Pulse Ox 99.3 F H 91 24 H 100/74 92 05/28/20 14:00 05/28/20 15:00 05/28/20 14:00 05/28/20 14:00 05/28/20 14:45 Oxygen Flow Rate (L/min) 6 Oxygen Delivery Method Nasal Cannula Weight: 151.591 kg Body Mass Index (BMI) 52.9 Finger Stick Blood Glucose 155 Intake and Output for Last 24 Hours 05/26/20 05/27/20 05/28/20 23:59 23:59 23:59 Intake Total 550.0 / 550.0 1000 / 1000 Output Total 1150 / 1150 Balance 550.0 / 550.0 -150 / -150 Microbiology Past 72 Hours 05/27/20 15:10 Urine Culture - Final Urine, Catheterized Presumptive C albicans Laboratory Tests Past 24 Hrs 05/27/20 05/27/20 05/28/20 20:34 23:54 04:35 WBC 4.2 L RBC 3.23 L Hgb 8.4 L Hct 31.6 L MCV 97.8 MCH 26.0 L MCHC 26.6 L RDW Std Deviation 68.1 H RDW Coeff of Shannan 19.1 H Plt Count 199 MPV 11.3 Immature Gran % (Auto) 0.200 Neut % (Auto) 55.4 Lymph % (Auto) 29.1 [place] % (Auto) 8.3 Eos % (Auto) 6.1 H Baso % (Auto) 0.9 Absolute Neuts (auto) 2.3 Absolute Lymphs (auto) 1.23 Nucleated RBC % 0 Differential Comment SCANNED Hypochromasia 1+ Anisocytosis 1+ Ovalocytes RARE Specimen Type ART ART Sample Site L Radial L Radial pH 7.38 7.36 Bicarbonate Actual 54.8 H 50.7 H Total CO2 > 50 > 50 Base Excess 30 H 25 H O2 Saturation 89 L 86 L O2 % 40 45 ABG pCO2 93.0 H* 89.1 H* ABG pO2 63 L 58 L David Test Positive Positive Respiration Rate 14 14 O2 Delivery Device BiPAP BiPAP Tidal Volume 450 POC PEEP 12 12 Sodium Potassium Chloride Carbon Dioxide Anion Gap BUN Creatinine Estim Creat Clear Calc Est GFR (MDRD) Af Amer Est GFR (MDRD) Non-Af BUN/Creatinine Ratio Glucose Calcium 05/28/20 04:35 WBC RBC Hgb Hct MCV MCH MCHC RDW Std Deviation RDW Coeff of Shannan Plt Count MPV Immature Gran % (Auto) Neut % (Auto) Lymph % (Auto) [place] % (Auto) Eos % (Auto) Baso % (Auto) Absolute Neuts (auto) Absolute Lymphs (auto) Nucleated RBC % Differential Comment Hypochromasia Anisocytosis Ovalocytes Specimen Type Sample Site pH Bicarbonate Actual Total CO2 Base Excess O2 Saturation O2 % ABG pCO2 ABG pO2 David Test Respiration Rate O2 Delivery Device Tidal Volume POC PEEP Sodium 143 Potassium 3.5 Chloride 94 L Carbon Dioxide > 45.0 H* Anion Gap TNP BUN 11 Creatinine 0.52 L Estim Creat Clear Calc 118.87 Est GFR (MDRD) Af Amer 157 Est GFR (MDRD) Non-Af 130 BUN/Creatinine Ratio 21.2 H Glucose 82 Calcium 8.4 L Assessment/Plan 1. Peripheral neuropathy: Currently on gabapentin, once she is seen as an outpatient we will evaluate her current medications and make changes as necessary. 2. Shortness of breath: Multifactorial, will need intensive physical therapy to regain strength. Advised her to follow-up with her primary care provider to ensure she receives therapy. Also should have close follow-up with her specialists. We will also be following her as an outpatient. 3. Chronic bilateral knee pain: No imaging reviewed, however patient reports both knees are [id number]. She had been on oxycodone 10 mg twice daily in the past but was quite confused on this dose. No changes will be made while inpatient, again we will reevaluate as outpatient. Thank you for the consultation to palliative care, patient is interested in services and we will continue to follow her as an outpatient. RN will arrange for visit within 3 days of discharge. Please do not hesitate to contact us with any further questions or concerns. [facility] [phone]
[2020-05-28] MEDS: Nystatin Powder 15gm Bottle 1 APPLIC TOPICAL ×2 (17:17→21:50)
[2020-05-28] MEDS: APIXABAN 5 MG TABLET PO (17:17)
[2020-05-28] MEDS: Gabapentin 300 MG Capsule PO ×2 (17:17→21:49)
--- NOTE | 2020-05-28 17:56 | CON.PCM_ITS ---
Reason for Consult Date of Consultation: 05/28/20 Reason for Consultation: Shortness of breath History of Present Illness: The patient is a 54 year old F with a past medical history significant for chronic persistent atrial fibrillation diastolic heart failure who presented to the hospital on 05/27/2020 with worsening shortness of breath while she was at [facility]. She apparently had been experiencing decompensation over the last couple of hours. She had been in the hospital in March when she was hospitalized for 2 weeks with a CHF exacerbation as well as COVID-19 infection. She has recently denied any fever chills cough nausea vomiting or diarrhea. She was admitted to the telemetry care unit she was noted to be hypotensive and with reduced saturation and was put on BiPAP. She was transferred to the intensive care unit. Cardiac enzymes were obtained which were normal. BNP was elevated at almost 500. She was treated with intravenous antibiotics as well as Lasix and she has remained on BiPAP therapy with improvement in her very high CO2 levels. This evening she is conversant and not having any major issues. [] Past Medical History Allergies/Adverse Reactions: Allergies No Known Allergies Allergy (Verified 05/27/20 13:51) Home Medications: Ambulatory Orders Medication Instructions Recorded Atorvastatin Calcium 40 mg PO QHS 04/24/19 Doxepin HCl 50 mg PO QHS 04/24/19 Gabapentin [Neurontin] 300 mg PO TID 04/24/19 diltiazem HCl 180 mg capsule,24 180 mg PO DAILY #90 cap 03/26/20 hr,extended release Apixaban [Eliquis] 5 mg PO BID 05/06/20 Ascorbic Acid [Vitamin C] 1,000 mg PO BID 05/06/20 Ferrous Sulfate 325 mg PO DAILY 05/06/20 Guaifenesin [Mucinex] 600 mg PO BID 05/06/20 Levothyroxine Sodium [Synthroid] 50 mcg PO DAILY 05/06/20 Metoprolol Tartrate [Lopressor 25 mg PO BID 05/06/20 (beta miriam)] Albuterol Inhaler [Ventolin Hfa 2 puff INHALATION Q4H PRN PRN 05/24/20 (SP)] Menthol [Biofreeze] 1 applic TP QHS 05/24/20 Nystatin Powder [Mycostatin Powder] 1 applic TOPICAL BID 05/24/20 Fluoxetine [Prozac] 60 mg PO DAILY 05/27/20 Furosemide Liquid [Lasix Liquid] 20 mg IM DAILY 05/27/20 Furosemide [Lasix] 40 mg PO BID 05/27/20 Potassium Chloride Oral Tablet 40 meq PO DAILY 05/27/20 [K-Dur] Past Medical History (Chronic Problems): Chronic Problems (Last Updated 05/28/20 @ 09:[address] Abdoul Cuellar MD) Peripheral neuropathy (Chronic) Bilateral chronic knee pain (Chronic) Frequent falls (Chronic) H/O methicillin resistant Staphylococcus aureus (Chronic) Ulcer of left lower extremity with fat layer exposed (Chronic) Contusion of left lower leg, sequela (Chronic) Acute on chronic diastolic (congestive) heart failure (Chronic) penitentiary (current) use of anticoagulants (Chronic) Eliquis JASMIN (obstructive sleep apnea) (Chronic) Bipap 01/10 Chronic atrial fibrillation (Chronic) Chronic diastolic (congestive) heart failure (Chronic) on chronic Essential (primary) hypertension (Chronic) Surgical History: cholecystectomy, - - arthroscopic surgery on the knee, umbilical hernia repair. Debridement hematoma right leg in 2007. surgical preparation right anterior leg with incision and drainage and excisional debridement hematoma (380 cm2) - 05/17/16. Excisional debridement nonhealing hematoma ulcer right anterior leg with STSG reconstruction from lower anterior abdominal wall (126 cm2) - 09/21/16. Psychiatric History: No pertinent psych hx WOVEN PAPER HAT MENDER History: No pertinent WOVEN PAPER HAT MENDER history - *Family History Paternal Family History: Family History (Last Reviewed 05/06/20 @ 17:05 by Rebecca Castellano NP, APARTMENT MAINTENANCE MANAGER-C) Father CAD (coronary artery disease) Pacemaker CHF (congestive heart failure) Diabetes Heart disease Hypertension High cholesterol COPD (chronic obstructive pulmonary disease) Brother Anxiety Diabetes Heart disease Hypertension High cholesterol History Items: Heart Disease - father at 64 YOA with an ND, Hypertension, Stroke Maternal Family History: Family History (Last Reviewed 05/06/20 @ 17:05 by Rebecca Castellano NP, APARTMENT MAINTENANCE MANAGER-C) Father CAD (coronary artery disease) Pacemaker CHF (congestive heart failure) Diabetes Heart disease Hypertension High cholesterol COPD (chronic obstructive pulmonary disease) Brother Anxiety Diabetes Heart disease Hypertension High cholesterol History Items: Hypertension, Stroke Lives: [facility] Smoking Status: Former smoker Tobacco Use: Cigarettes Alcohol: None Drugs: None Review of Systems - Review of Systems General: Reports: Fatigue, Malaise. Denies: Fever, Night Sweats HEENT: Denies: Vision Change Cardiovascular: Reports: Shortness of Breath, Shortness of Breath at Rest, Shortness of Breath with Exertion, Peripheral Edema. Denies: Chest Discomfort, Orthopnea, PND, Palpitations, Lightheadedness, Dizziness, Near Syncope, Syncope Respiratory: Denies: Cough, Sputum Production, Hemoptysis Gastrointestinal: Denies: Hematemesis, Hematochezia, Melena Genitourinary: Denies: Dysuria, Hematuria Skin: Denies: Rash Neurological: Denies: Dizziness Psychiatric: Denies: Anxiety Endocrine: Denies: Unexplained Weight Loss Hematologic/ Lymphatic: Denies: Anemia Subjectve: Pleasant middle-aged lady in no distress currently on nasal prong oxygen Objective: Vital Signs Temp Pulse Resp BP Pulse Ox 99.3 F H 91 24 H 100/74 92 05/28/20 14:00 05/28/20 15:00 05/28/20 14:00 05/28/20 14:00 05/28/20 14:45 Oxygen Flow Rate (L/min) 6 Oxygen Delivery Method Nasal Cannula Weight: 334 lb 3.215 oz Body Mass Index (BMI) 52.9 Finger Stick Blood Glucose 155 Intake and Output for Last 24 Hours 05/26/20 05/27/20 05/28/20 23:59 23:59 23:59 Intake Total 550.0 / 550.0 1290 / 1290 Output Total 1700 / 1700 Balance 550.0 / 550.0 -410 / -410 General: Awake, Alert, Oriented x 3 HEENT: PERRL, EOMI, Sclera Non Icteric Neck: Supple, Good ROM, No Lymph Node Enlargement Lungs: Diminished Dontae Bases Cardiovascular: Irregular Rhythm, Normal S1, Normal S2, No Murmurs, No Rubs, No Gallops Vascular: No Carotid Bruits, Normal Femoral Pulses, Normal Radial Pulses, Normal Dorsalis Pedal Pulse, Normal Posterior Tibial Pulses Abdomen: Bowel Sounds Present, Soft, Non Tender, No HSM, No Organomegaly Extremities: No Cyanosis, No Clubbing, Bilateral Edema +2 Musculoskeletal: No Erythema Skin: No Rashes Lymphatic: No Lymph Node Enlargement Neurological: No Focal Motor or Sensory Deficit Psych/Mental Status: Appropriate 05/27/20 20:34: pH 7.38, Bicarbonate Actual 54.8 H, Base Excess 30 H, O2 Saturation 89 L, ABG pCO2 93.0 H*, ABG pO2 63 L, David Test Positive 05/27/20 23:54: pH 7.36, Bicarbonate Actual 50.7 H, Base Excess 25 H, O2 Saturation 86 L, ABG pCO2 89.1 H*, ABG pO2 58 L, David Test Positive 05/28/20 04:35: WBC 4.2 L, RBC 3.23 L, Hgb 8.4 L, Hct 31.6 L, MCV 97.8, MCH 26.0 L, MCHC 26.6 L, Plt Count 199, MPV 11.3, Immature Gran % (Auto) 0.200, Neut % (Auto) 55.4, Lymph % (Auto) 29.1, [place] % (Auto) 8.3, Eos % (Auto) 6.1 H, Baso % (Auto) 0.9, Absolute Neuts (auto) 2.3, Nucleated RBC % 0 05/28/20 04:35: Sodium 143, Potassium 3.5, Chloride 94 L, Carbon Dioxide > 45.0 H*, Anion Gap TNP, BUN 11, Creatinine 0.52 L, Est GFR (MDRD) Af Amer 157, Est GFR (MDRD) Non-Af 130, BUN/Creatinine Ratio 21.2 H, Glucose 82, Calcium 8.4 L Rhythm: EKG: Atrial fibrillation with a controlled ventricular response rate ECHO: Preserved left ventricular systolic function Stress Test: Cardiac Cath: PCI: CT Surgery: Holter monitor: EPS: PPM: CXR: Chest CT Scan: Assessment/Plan 1. Congestive heart failure with preserved ejection fraction * Patient presents with an exacerbation of congestive heart failure with preserved ejection fraction. I suspect the above is secondary to the atrial fibrillation with a rapid ventricular response rate. I would recommend that we diurese her with intravenous Lasix, slow down her heart rate with beta- miriam and digoxin as appropriate. * I do not think there is a need for a repeat echocardiogram at this time * I may recommend that as an outpatient should be considered for remote monitoring device. She has had 2 admissions in as many months for decompensation of heart failure * 2. Atrial fibrillation with rapid ventricular response rate. She does have evidence of atrial fibrillation with rapid ventricular response rate. * She has been hypotensive and so it has been difficult to continue her beta- miriam but this can be reinstituted carefully. * If her blood pressure improves I would reinstitute the beta-miriam. * Will start her on p.o. digoxin for now * Thank you for allowing me to participate in the care of your patient. Please don't hesitate to call if any issues arise.
--- NOTE | 2020-05-28 18:13 | NURSING ---
education re chronic illness deferred till acute illness resolving
[2020-05-28] MEDS: Digoxin 250 MCG/ML Ampul IV (18:46)
[2020-05-28] MEDS: DOXEPIN HCL 50 MG CAPSULE PO (21:49)
[2020-05-28] MEDS: Atorvastatin Calcium 40 MG Tablet PO (21:49)
[2020-05-29] VITALS (35 sets, daily range): BP systolic 84–112; BP diastolic 49–72; PULSE 65–111; RESP 14–29; TEMP 36.8–37.7; O2SAT 91–96
[2020-05-29] MEDS: Acetaminophen 325 MG Tablet 650 MG PO ×3 (00:46→21:52)
[2020-05-29] MEDS: 0.9% Saline Lock 10 ML Syringe IV ×3 (04:56→18:31)
[2020-05-29] MEDS: Nystatin Powder 15gm Bottle 1 APPLIC TOPICAL ×3 (05:00→21:48)
[2020-05-29] MEDS: Gabapentin 300 MG Capsule PO ×3 (05:00→21:48)
[2020-05-29] MEDS: Levothyroxine 50 MCG Tablet PO (05:00)
[2020-05-29 05:04] LABS: Absolute Lymphocyte Count 1.19 X10^3/uL (0.83-4.51); Absolute Neutrophil Count 2.3 X10^3/uL (2.0-7.7); Basophil# 0.03 X10^3/uL; Basophil% 0.7 % (0-1); Eosinophil# 0.17 X10^3/uL; Eosinophils% 4.2 % (0-5); Hematocrit 29.9 % (37-47); Hemoglobin 8.6 g/dL (12.0-15.0); Lymphocyte # 1.19 X10^3/ul (4.0); Lymphocyte % 29.3 % (19-41); Mean Corp Hgb Conc 28.8 g/dL (32-36); Mean Corpuscular Hgb 27.1 pg (27.0-32.0); Mean Corpuscular Volume 94.3 fL (81-99); Mean Platelet Vol. 11.7 fl (6.2-12.0); Monocyte# 0.38 X10^3/uL; Monocyte% 9.4 % (0-10); NRBC Flagged by Analyzer 0 % (0-5); Neutrophil # 2.28 X10^3/uL (2.7-7.7); Neutrophil % 56.2 % (47-70); POSITIVE MORPHOLOGY YES; Platelet Count 232 K/mm3 (150-450); RBC Distribution Width CV 19.5 % (11.6-14.6); RBC Distribution Width SD 67.7 fl (35.1-43.9); Red Blood Count 3.17 M/mm3 (4.2-5.4); White Blood Count 4.1 K/mm3 (4.4-11.0)
[2020-05-29 05:20] LABS: Differential Indicated SCAN CRITERIA MET
[2020-05-29 05:30] LABS: BUN 16 mg/dL (7-18); BUN/Creat Ratio 27.7 RATIO (10-20); Calcium,Total 8.7 mg/dL (8.5-10.1); Carbon Dioxide > 45.0 mmol/L (21.0-32.0); Chloride 93 mmol/L (98-107); Creatinine, Serum 0.58 mg/dL (0.55-1.02); EST Glomerular Filtration Rate 115 mL/min (>60); Est Glom Filt Rate - Afr Amer 139 mL/min (>60); Estimated Creatinine Clearance 106.58 ml/min; Glucose 88 mg/dL (74-106); Magnesium 2.2 mg/dL (1.6-2.6); Potassium 3.4 mmol/L (3.5-5.1); Sodium Level 143 mmol/L (136-145)
[2020-05-29 05:47] LABS: Differential Comment SCANNED
[2020-05-29 05:49] LABS: Anisocytosis 1+; Macrocytosis RARE; Microcytosis RARE; Ovalocyte RARE
--- NOTE | 2020-05-29 07:11 | PCM.PN.INT ---
Subjective: Patient has been able to tolerate diuresis. Pressures have been soft at times, but no fluid boluses been required. Patient was on BiPAP overnight, but was able to tolerate 6 L nasal cannula following diuretic therapy. Patient did receive some digoxin overnight secondary to tachycardia by cardiology. General: - - RASS -1. Morbidly obese. Good BiPAP synchrony. HEENT: Atraumatic, PERRLA, EOMI, Normocephalic, - - No scleral icterus or injection noted Oral: No Gingival or Mucosal Lesions/ Ulcerations, Dry Mucosa, - - Crowded posterior pharynx Neck: Supple, No Nodes, Trachea Midline, - - Unable to assess JVD secondary to body habitus Lungs: No rhonchi, No wheeze, Diminished, Rales, - - Symmetric expansion Cardiovascular: Normal S1, Normal S2, No murmurs, Irregular Rate, No rub noted, No Gallop, - - Distant heart sounds Abdomen: Bowel Sounds Present, Soft, Non Tender, Non-Distended, Obese Extremities: No clubbing, No cyanosis, Edema Skin: - - No change compared to previous Musculoskeletal: No Tenderness to Palpation of Joints or Extremities Lymphatic: No Cervical, Supraclavicular, or Inguinal Adenopathy Neurological: Cranial nerves II-XII grossly intact, Neuro grossly intact, Motor Exam 5/5 strength throughout Psych/Mental Status: Flat Affect Vital Signs Temp Pulse Resp BP Pulse Ox 36.9 C 77 18 100/51 L 96 05/29/20 07:00 05/29/20 07:00 05/29/20 07:00 05/29/20 07:00 05/29/20 07:00 Oxygen Flow Rate (L/min) 35 Oxygen Delivery Method Bi-pap Weight: 152.135 kg Body Mass Index (BMI) 52.9 Finger Stick Blood Glucose 155 Intake and Output for Last 24 Hours 05/27/20 05/28/20 05/29/20 23:59 23:59 23:59 Intake Total 550.0 / 550.0 1770 / 1770 240 / 240 Output Total 2450 / 2450 250 / 250 Balance 550.0 / 550.0 -680 / -680 -10 / -10 Labs (Last 48 Hours) 05/27/20 05/27/20 05/27/20 15:10 15:10 15:10 WBC 4.7 RBC 3.46 L Hgb 9.1 L Hct 33.5 L MCV 96.8 MCH 26.3 L MCHC 27.2 L RDW Std Deviation 67.7 H RDW Coeff of Shannan 19.0 H Plt Count 214 MPV 11.5 Immature Gran % (Auto) 0.200 Neut % (Auto) 64.1 Lymph % (Auto) 22.9 [place] % (Auto) 7.7 Eos % (Auto) 4.5 Baso % (Auto) 0.6 Absolute Neuts (auto) 3.0 Absolute Lymphs (auto) 1.07 Nucleated RBC % 0 Differential Comment Platelet Estimate ADEQUATE Hypochromasia Anisocytosis 1+ Microcytosis Macrocytosis Ovalocytes Stomatocytes 1+ Specimen Type Sample Site pH Bicarbonate Actual Total CO2 Base Excess O2 Saturation O2 % ABG pCO2 ABG pO2 David Test Respiration Rate O2 Delivery Device Liter Flow Tidal Volume POC PEEP Sodium 141 Potassium 3.5 Chloride 92 L Carbon Dioxide > 45.0 H* Anion Gap TNP BUN 12 Creatinine 0.69 Estim Creat Clear Calc 89.59 Est GFR (MDRD) Af Amer 114 Est GFR (MDRD) Non-Af 94 BUN/Creatinine Ratio 17.4 Glucose 111 H Calcium 8.9 Phosphorus Magnesium Troponin I < 0.015 B-Natriuretic Peptide 487.9 H Urine Color Urine Clarity Urine pH Ur Specific [place] Urine Protein Urine Glucose (UA) Urine Ketones Urine Occult Blood Urine Nitrite Urine Bilirubin Urine Urobilinogen Ur Leukocyte Esterase Urine RBC Urine WBC Ur Squamous Epith Cells Urine Bacteria Hyaline Casts Urine Mucus Urine Yeast 05/27/20 05/27/20 05/27/20 15:10 16:15 20:34 WBC RBC Hgb Hct MCV MCH MCHC RDW Std Deviation RDW Coeff of Shannan Plt Count MPV Immature Gran % (Auto) Neut % (Auto) Lymph % (Auto) [place] % (Auto) Eos % (Auto) Baso % (Auto) Absolute Neuts (auto) Absolute Lymphs (auto) Nucleated RBC % Differential Comment Platelet Estimate Hypochromasia Anisocytosis Microcytosis Macrocytosis Ovalocytes Stomatocytes Specimen Type ART ART Sample Site L Radial L Radial pH 7.32 L 7.38 Bicarbonate Actual 57.5 H 54.8 H Total CO2 > 50 > 50 Base Excess > 30 H 30 H O2 Saturation 93 L 89 L O2 % 40 ABG pCO2 112.5 H* 93.0 H* ABG pO2 81 63 L David Test Positive Positive Respiration Rate 14 O2 Delivery Device Cannula BiPAP Liter Flow 4.0 Tidal Volume 450 POC PEEP 12 Sodium Potassium Chloride Carbon Dioxide Anion Gap BUN Creatinine Estim Creat Clear Calc Est GFR (MDRD) Af Amer Est GFR (MDRD) Non-Af BUN/Creatinine Ratio Glucose Calcium Phosphorus Magnesium Troponin I B-Natriuretic Peptide Urine Color Yellow Urine Clarity Sl. Cloudy Urine pH 6.0 Ur Specific [place] 1.020 Urine Protein 15 H Urine Glucose (UA) Normal Urine Ketones Negative Urine Occult Blood 25 H Urine Nitrite Negative Urine Bilirubin Negative Urine Urobilinogen Normal Ur Leukocyte Esterase 500 H Urine RBC 0 SEEN Urine WBC 50-100 SEEN Ur Squamous Epith Cells 10-25 SEEN Urine Bacteria 0 SEEN Hyaline Casts 10-25 SEEN Urine Mucus 0 SEEN Urine Yeast 1+ 05/27/20 05/28/20 05/28/20 23:54 04:35 04:35 WBC 4.2 L RBC 3.23 L Hgb 8.4 L Hct 31.6 L MCV 97.8 MCH 26.0 L MCHC 26.6 L RDW Std Deviation 68.1 H RDW Coeff of Shannan 19.1 H Plt Count 199 MPV 11.3 Immature Gran % (Auto) 0.200 Neut % (Auto) 55.4 Lymph % (Auto) 29.1 [place] % (Auto) 8.3 Eos % (Auto) 6.1 H Baso % (Auto) 0.9 Absolute Neuts (auto) 2.3 Absolute Lymphs (auto) 1.23 Nucleated RBC % 0 Differential Comment SCANNED Platelet Estimate Hypochromasia 1+ Anisocytosis 1+ Microcytosis Macrocytosis Ovalocytes RARE Stomatocytes Specimen Type ART Sample Site L Radial pH 7.36 Bicarbonate Actual 50.7 H Total CO2 > 50 Base Excess 25 H O2 Saturation 86 L O2 % 45 ABG pCO2 89.1 H* ABG pO2 58 L David Test Positive Respiration Rate 14 O2 Delivery Device BiPAP Liter Flow Tidal Volume POC PEEP 12 Sodium 143 Potassium 3.5 Chloride 94 L Carbon Dioxide > 45.0 H* Anion Gap TNP BUN 11 Creatinine 0.52 L Estim Creat Clear Calc 118.87 Est GFR (MDRD) Af Amer 157 Est GFR (MDRD) Non-Af 130 BUN/Creatinine Ratio 21.2 H Glucose 82 Calcium 8.4 L Phosphorus Magnesium Troponin I B-Natriuretic Peptide Urine Color Urine Clarity Urine pH Ur Specific [place] Urine Protein Urine Glucose (UA) Urine Ketones Urine Occult Blood Urine Nitrite Urine Bilirubin Urine Urobilinogen Ur Leukocyte Esterase Urine RBC Urine WBC Ur Squamous Epith Cells Urine Bacteria Hyaline Casts Urine Mucus Urine Yeast 05/29/20 05/29/20 04:50 04:50 WBC 4.1 L RBC 3.17 L Hgb 8.6 L Hct 29.9 L MCV 94.3 MCH 27.1 MCHC 28.8 L D RDW Std Deviation 67.7 H RDW Coeff of Shannan 19.5 H Plt Count 232 MPV 11.7 Immature Gran % (Auto) 0.200 Neut % (Auto) 56.2 Lymph % (Auto) 29.3 [place] % (Auto) 9.4 Eos % (Auto) 4.2 Baso % (Auto) 0.7 Absolute Neuts (auto) 2.3 Absolute Lymphs (auto) 1.19 Nucleated RBC % 0 Differential Comment SCANNED Platelet Estimate Hypochromasia Anisocytosis 1+ Microcytosis RARE Macrocytosis RARE Ovalocytes RARE Stomatocytes Specimen Type Sample Site pH Bicarbonate Actual Total CO2 Base Excess O2 Saturation O2 % ABG pCO2 ABG pO2 David Test Respiration Rate O2 Delivery Device Liter Flow Tidal Volume POC PEEP Sodium 143 Potassium 3.4 L Chloride 93 L Carbon Dioxide > 45.0 H* Anion Gap TNP BUN 16 Creatinine 0.58 Estim Creat Clear Calc 106.58 Est GFR (MDRD) Af Amer 139 Est GFR (MDRD) Non-Af 115 BUN/Creatinine Ratio 27.7 H Glucose 88 Calcium 8.7 Phosphorus 3.0 Magnesium 2.2 Troponin I B-Natriuretic Peptide Urine Color Urine Clarity Urine pH Ur Specific [place] Urine Protein Urine Glucose (UA) Urine Ketones Urine Occult Blood Urine Nitrite Urine Bilirubin Urine Urobilinogen Ur Leukocyte Esterase Urine RBC Urine WBC Ur Squamous Epith Cells Urine Bacteria Hyaline Casts Urine Mucus Urine Yeast Microbiology 05/27/20 15:10 Urine, Catheterized Urine Culture - Final Presumptive C albicans Medical Necessity - Tobacco Use Smoking Status: Former smoker Tobacco Use: Cigarettes Assessment/Plan All Active Problems (Last Updated 05/28/20 @ 09:[address] Abdoul Cuellar MD) Shortness of breath (Acute) Immobility (Acute) Morbid obesity with BMI of 50.0-59.9, adult (Acute) RECOMMENDATIONS: 1. Continue diuretics twice daily for today. Possible transition to 3 times daily tomorrow 2. BiPAP breaks as tolerated. Continue AVAPS with sleep 3. Continue anticoagulation for now 4. No indication for scheduled bronchodilators IMPRESSIONS: 1. Acute on chronic combined respiratory failure secondary to acute on chronic diastolic CHF and cor pulmonale Patient's previous pulmonary function tests were not suggestive of COPD, but does have restriction with elevated pulmonary artery pressures. Clinical suspicion for cor pulmonale leading to hypotension. Patient may have an element of obesity hypoventilation syndrome and is on BiPAP at baseline. Continue to challenge with diuretic therapy. If able to tolerate twice daily today, possibly advance to 3 times daily tomorrow. Okay to take BiPAP breaks as tolerated and follow with mental status. 2. Chronic A. fib/hypertension/hyperlipidemia/cor pulmonale/acute on chronic diastolic CHF Okay to continue with anticoagulation and rate control from my perspective. Blood pressures are marginal at this time, but clinical suspicion is starting forces will improve with diuresis. Patient will be given diuretics and monitor output with Kay catheter. Continue to monitor blood pressures. Likely not necessary to have an art line at this time, but will continue to evaluate. Appreciate cardiac input 3. Hypothyroidism/morbid obesity/history of Proteus infection/venous stasis Complicates care, management, recovery and prognosis. Okay to continue with baseline medications. No indication for transfusion at this time. Wound nurse will follow and intervene as necessary Inpatient E&M: [id number] [facility] Hosp L3
--- NOTE | 2020-05-29 09:53 | PCM.PROGNOTE ---
Subjective: Chief complaint: Follow-up after admission for acute on chronic diastolic CHF/cor pulmonale and acute on chronic hypoxic and hypercapnic respiratory failure. Patient seen and examined. No acute events overnight. Blood pressure was borderline but no IV fluid bolus needed. She remained on BiPAP overnight but she was able to tolerate nasal cannula at 6 L. She has been tolerating IV Lasix twice daily. Other vital signs are stable. - Physical Exam Vitals/I&O's: Vital Signs Temp Pulse Resp BP Pulse Ox 98.5 F 77 20 H 100/51 L 93 05/29/20 07:00 05/29/20 07:10 05/29/20 07:10 05/29/20 07:00 05/29/20 07:10 Oxygen Flow Rate (L/min) 35 Oxygen Delivery Method Bi-pap Weight: 335 lb 6.4 oz Body Mass Index (BMI) 52.9 Finger Stick Blood Glucose 155 Intake and Output for Last 24 Hours 05/27/20 05/28/20 05/29/20 23:59 23:59 23:59 Intake Total 550.0 / 550.0 1770 / 1770 240 / 240 Output Total 2450 / 2450 250 / 250 Balance 550.0 / 550.0 -680 / -680 -10 / -10 General: Alert, Cooperative, No apparent distress, - - She is on BiPAP. HEENT: Atraumatic, PERRLA, EOMI, Normocephalic Oral: Moist Mucosa, No Gingival or Mucosal Lesions/ Ulcerations Neck: Supple, No JVD, Negative Carotid Bruits, Trachea Midline, Thyroid Normal Size and Texture Lungs: No rhonchi, No wheeze, Diminished, Rales, Short of Breath Cardiovascular: Regular rate, Regular Rhythm, Normal S1, Normal S2, PMI Normal Abdomen: Bowel Sounds Present, Soft, Non Tender, Non-Distended, No Hepato-splenomegaly, Obese Extremities: No clubbing, No cyanosis, Edema Skin: No rashes, No breakdown Lymphatic: No Cervical, Supraclavicular, or Inguinal Adenopathy Neurological: Cranial nerves II-XII grossly intact, Neuro grossly intact Psych/Mental Status: Appropriate, Flat Affect Microbiology Past 72 Hours 05/27/20 15:10 Urine, Catheterized Urine Culture - Final Presumptive C albicans Laboratory Results 05/29/20 04:50: WBC 4.1 L, RBC 3.17 L, Hgb 8.6 L, Hct 29.9 L, MCV 94.3, MCH 27.1, MCHC 28.8 L D, RDW Std Deviation 67.7 H, RDW Coeff of Shannan 19.5 H, Plt Count 232, MPV 11.7, Immature Gran % (Auto) 0.200, Neut % (Auto) 56.2, Lymph % (Auto) 29.3, [place] % (Auto) 9.4, Eos % (Auto) 4.2, Baso % (Auto) 0.7, Absolute Neuts (auto) 2.3, Absolute Lymphs (auto) 1.19, Nucleated RBC % 0, Differential Comment SCANNED, Anisocytosis 1+, Microcytosis RARE, Macrocytosis RARE, Ovalocytes RARE 05/29/20 04:50: Sodium 143, Potassium 3.4 L, Chloride 93 L, Carbon Dioxide > 45.0 H*, Anion Gap TNP, BUN 16, Creatinine 0.58, Estim Creat Clear Calc 106.58, Est GFR (MDRD) Af Amer 139, Est GFR (MDRD) Non-Af 115, BUN/Creatinine Ratio 27.7 H, Glucose 88, Calcium 8.7, Phosphorus 3.0, Magnesium 2.2 Current Medications Acetaminophen (Acetaminophen 325 Mg Tablet) 650 mg PO Q6H PRN PRN PRN Reason: Pain Score 1-10/Temp > 100.7 F Last Admin: 05/29/20 00:46 Dose: 650 mg Documented by: Albuterol Sulfate (Albuterol 2.5 Mg/3 Ml Vial.Neb.) 2.5 mg INHALATION Q4H PRN PRN PRN Reason: WHEEZING Apixaban (Apixaban 5 Mg Tablet) 5 mg PO BID [facility] Last Admin: 05/28/20 21:41 Dose: Not Given Documented by: Atorvastatin Calcium (Atorvastatin Calcium 40 Mg Tablet) 40 mg PO QHS [facility] Last Admin: 05/28/20 21:49 Dose: 40 mg Documented by: Digoxin (Digoxin 125 Mcg Tablet) 125 mcg PO DAILY [facility] Doxepin HCl (Doxepin Hcl 50 Mg Capsule) 50 mg PO QHS [facility] Last Admin: 05/28/20 21:49 Dose: 50 mg Documented by: Ferrous Sulfate (Ferrous Sulfate 325 Mg Tablet) 325 mg PO DAILY@1200 [facility] Last Admin: 05/28/20 12:50 Dose: 325 mg Documented by: Fluoxetine HCl (Fluoxetine 20 Mg Capsule) 60 mg PO DAILY [facility] Last Admin: 05/28/20 12:50 Dose: 60 mg Documented by: Furosemide (Furosemide 40 Mg/4 Ml Vial) 40 mg IV BID@1000,1800 [facility] Last Admin: 05/28/20 17:18 Dose: 40 mg Documented by: Gabapentin (Gabapentin 300 Mg Capsule) 300 mg PO TID [facility] Last Admin: 05/29/20 05:00 Dose: 300 mg Documented by: Ceftriaxone Sodium (Rocephin) 1 gm in 50 mls @ 100 mls/hr IV Q24 [facility] Last Infusion: 05/28/20 17:15 Dose: Infused Documented by: Levothyroxine Sodium (Levothyroxine 50 Mcg Tablet) 50 mcg PO DAILY@0600 [facility] Last Admin: 05/29/20 05:00 Dose: 50 mcg Documented by: Melatonin (Melatonin 3 Mg Tablet) 3 mg PO QHS PRN PRN PRN Reason: INSOMNIA Nystatin (Nystatin Powder 15gm Bottle) 1 applic TOPICAL TID [facility]; Protocol Last Admin: 05/29/20 05:00 Dose: 1 applic Documented by: Ondansetron HCl (Ondansetron 4 Mg/2 Ml Vial) 4 mg IV Q8H PRN PRN PRN Reason: NAUSEA/VOMITING Potassium Chloride (Potassium Chloride Oral Tablet 20 Meq) 40 meq PO DAILYCM [facility] Last Admin: 05/28/20 12:49 Dose: 40 meq Documented by: Potassium Chloride (Potassium Chloride Oral Tablet 20 Meq) 40 meq PO X1 ONE Stop: 05/29/20 17:01 Sodium Chloride (0.9% Saline Lock 10 Ml Syringe) 10 - 40 ml IV UD PRN PRN Reason: SALINE FLUSH Last Admin: 05/29/20 04:56 Dose: 20 ml Documented by: Medical Necessity - Tobacco Use Smoking Status: Former smoker Tobacco Use: Cigarettes Assessment/Plan This is a 54 years old female patient presented to the emergency room from the custodial because of worsening shortness of breath and she was found to have acute on chronic diastolic CHF with cor pulmonale complicated by acute on chronic hypoxic and hypercapnic respiratory failure and also found to have acute cystitis. #1 acute on chronic diastolic CHF/cor pulmonale: She has been on IV Lasix, blood pressure tolerated. Blood pressure remained borderline but slightly improved. No IV fluid bolus needed last night. EKG revealed A. fib, rate is controlled, no acute ischemic changes. Troponin was negative. She had episode of tachycardia last night, was started on digoxin by cardiology. She had an echocardiogram done on April, that showed ejection fraction 55%, other findings reviewed. Cardiology on the case. Plan to continue IV diuresis as tolerated, repeat BMP tomorrow morning. #2 acute on chronic hypoxic and hypercapnic respiratory failure: Secondary to #1, remains on BiPAP but tolerated nasal cannula at 6 L. Plan as above. #3 acute cystitis: She is IV Rocephin, urine culture revealed presumptive Telma albicans. She has been afebrile, no leukocytosis. #4 chronic atrial fibrillation: This morning heart rate stable, currently only on Eliquis. Last night, she had episode of tachycardia, was started on digoxin by cardiology. Metoprolol and Cardizem held because of low blood pressure. #5 hypertension: Today, blood pressure improved, still borderline, no IV fluid bolus required. Her antihypertensive medications remained on hold. #6 hypothyroidism: Stable, continue levothyroxine. #7 chronic anemia: Due to anemia of chronic disease. Hemoglobin has been around anywhere between 6 to 8 g/dL. Today's hemoglobin is 8.6 g/dL, stable at baseline. #8 hyperlipidemia: Continue statins. #9 DVT prophylaxis: Continue Eliquis. This note was generated with [email or web address] dictation software. It may contain incorrect words, spelling, and punctuation that were not noted in checking the note before signing. Inpatient E&M: [id number] Subs Hosp L2
[2020-05-29] MEDS: Furosemide 40 MG/4 ML Vial IV ×2 (10:29→18:31)
[2020-05-29] MEDS: Digoxin 125 MCG Tablet PO (10:29)
[2020-05-29] MEDS: Potassium Chloride Oral Tablet 20 MEQ 40 MEQ PO ×2 (10:29→18:31)
[2020-05-29] MEDS: APIXABAN 5 MG TABLET PO ×2 (10:29→21:48)
[2020-05-29] MEDS: Ferrous Sulfate 325 MG Tablet PO (10:29)
[2020-05-29] MEDS: FLUoxetine 20 MG Capsule 60 MG PO (10:29)
[2020-05-29] MEDS: Ceftriaxone 1 GM/50 ML BAG IV (10:30)
[2020-05-29] MEDS: Atorvastatin Calcium 40 MG Tablet PO (21:48)
[2020-05-29] MEDS: DOXEPIN HCL 50 MG CAPSULE PO (21:48)
[2020-05-29] MEDS: MELATONIN 3 MG TABLET PO (22:31)
[2020-05-30] VITALS (30 sets, daily range): BP systolic 98–128; BP diastolic 52–84; PULSE 60–105; RESP 12–24; TEMP 36.4–37.5; O2SAT 89–97
[2020-05-30 05:34] LABS: Absolute Lymphocyte Count 1.39 X10^3/uL (0.83-4.51); Absolute Neutrophil Count 2.1 X10^3/uL (2.0-7.7); Basophil# 0.03 X10^3/uL; Basophil% 0.7 % (0-1); Differential Indicated SCAN CRITERIA MET; Eosinophil# 0.22 X10^3/uL; Eosinophils% 5.4 % (0-5); Hematocrit 29.8 % (37-47); Hemoglobin 8.1 g/dL (12.0-15.0); Lymphocyte # 1.39 X10^3/ul (4.0); Lymphocyte % 33.8 % (19-41); Mean Corp Hgb Conc 27.2 g/dL (32-36); Mean Corpuscular Hgb 25.9 pg (27.0-32.0); Mean Corpuscular Volume 95.2 fL (81-99); Mean Platelet Vol. 11.9 fl (6.2-12.0); Monocyte# 0.37 X10^3/uL; NRBC Flagged by Analyzer 0 % (0-5); Neutrophil # 2.09 X10^3/uL (2.7-7.7); Neutrophil % 50.9 % (47-70); POSITIVE MORPHOLOGY YES; Platelet Count 204 K/mm3 (150-450); RBC Distribution Width CV 19.1 % (11.6-14.6); RBC Distribution Width SD 65.9 fl (35.1-43.9); Red Blood Count 3.13 M/mm3 (4.2-5.4); White Blood Count 4.1 K/mm3 (4.4-11.0)
[2020-05-30 05:47] LABS: Anion Gap 4 (5-15); BUN 14 mg/dL (7-18); BUN/Creat Ratio 32.3 RATIO (10-20); Calcium,Total 6.7 mg/dL (8.5-10.1); Chloride 101 mmol/L (98-107); Creatinine, Serum 0.43 mg/dL (0.55-1.02); EST Glomerular Filtration Rate 160 mL/min (>60); Est Glom Filt Rate - Afr Amer 194 mL/min (>60); Estimated Creatinine Clearance 143.75 ml/min; Glucose 204 mg/dL (74-106); Potassium 2.8 mmol/L (3.5-5.1); Sodium Level 143 mmol/L (136-145)
[2020-05-30] MEDS: 0.9% Saline Lock 10 ML Syringe IV ×3 (06:28→14:04)
[2020-05-30] MEDS: Potassium Chloride 10mEq/100mL 10 MEQ/100 ML IV.SOLN. 100 MEQ IV BOLUS (06:30)
[2020-05-30] MEDS: Nystatin Powder 15gm Bottle 1 APPLIC TOPICAL ×3 (06:34→21:34)
[2020-05-30] MEDS: Gabapentin 300 MG Capsule PO ×3 (06:35→21:34)
[2020-05-30] MEDS: Levothyroxine 50 MCG Tablet PO (06:35)
[2020-05-30] MEDS: Furosemide 40 MG/4 ML Vial IV ×3 (06:37→21:36)
[2020-05-30] MEDS: Potassium Chloride Oral Tablet 20 MEQ 40 MEQ PO ×2 (06:40→08:05)
--- NOTE | 2020-05-30 07:37 | PCM.PN.INT ---
Subjective: Patient did well overnight. Patient was able to tolerate BiPAP without difficulty. Patient was on nasal cannula yesterday. No cramping has been reported. No significant ectopy has been noted. Patient remains in A. fib. General: Alert, Oriented x3, Cooperative, No apparent distress, Well developed, Well nourished, - - Morbidly obese. No conversational dyspnea. HEENT: Atraumatic, PERRLA, EOMI, Normocephalic, - - No scleral icterus or injection noted Oral: Moist Mucosa, No Gingival or Mucosal Lesions/ Ulcerations, - - Crowded posterior pharynx Neck: Supple, No Nodes, Trachea Midline Lungs: No rhonchi, No wheeze, No rales, Diminished, - - Symmetric expansion Cardiovascular: Normal S1, Normal S2, No murmurs, Irregular Rate, No rub noted, No Gallop Abdomen: Bowel Sounds Present, Soft, Non Tender, Non-Distended, Obese Extremities: No clubbing, No cyanosis, Edema Skin: - - No change compared to previous Musculoskeletal: No Tenderness to Palpation of Joints or Extremities Lymphatic: No Cervical, Supraclavicular, or Inguinal Adenopathy Neurological: Cranial nerves II-XII grossly intact, Neuro grossly intact, Motor Exam 5/5 strength throughout Psych/Mental Status: Alert and oriented to time, place, person, mood and affect Vital Signs Temp Pulse Resp BP Pulse Ox 36.9 C 88 24 H 105/63 94 05/30/20 06:00 05/30/20 06:00 05/30/20 06:00 05/30/20 06:00 05/30/20 06:00 Oxygen Flow Rate (L/min) 6 Oxygen Delivery Method Bi-pap Weight: 153.3 kg Body Mass Index (BMI) 52.9 Finger Stick Blood Glucose 155 Intake and Output for Last 24 Hours 05/28/20 05/29/20 05/30/20 23:59 23:59 23:59 Intake Total 1770 / 1770 760 / 760 23.33 / 23.33 Output Total 2450 / 2450 2140 / 2140 275 / 275 Balance -680 / -680 -1380 / -1380 -251.67 / -251.67 Labs (Last 48 Hours) 05/29/20 05/29/20 05/30/20 04:50 04:50 04:45 WBC 4.1 L 4.1 L RBC 3.17 L 3.13 L Hgb 8.6 L 8.1 L Hct 29.9 L 29.8 L MCV 94.3 95.2 MCH 27.1 25.9 L MCHC 28.8 L D 27.2 L D RDW Std Deviation 67.7 H 65.9 H RDW Coeff of Shannan 19.5 H 19.1 H Plt Count 232 204 MPV 11.7 11.9 Immature Gran % (Auto) 0.200 0.200 Neut % (Auto) 56.2 50.9 Lymph % (Auto) 29.3 33.8 [place] % (Auto) 9.4 9.0 Eos % (Auto) 4.2 5.4 H Baso % (Auto) 0.7 0.7 Absolute Neuts (auto) 2.3 2.1 Absolute Lymphs (auto) 1.19 1.39 Nucleated RBC % 0 0 Differential Comment SCANNED Anisocytosis 1+ Microcytosis RARE Macrocytosis RARE Ovalocytes RARE Sodium 143 Potassium 3.4 L Chloride 93 L Carbon Dioxide > 45.0 H* Anion Gap TNP BUN 16 Creatinine 0.58 Estim Creat Clear Calc 106.58 Est GFR (MDRD) Af Amer 139 Est GFR (MDRD) Non-Af 115 BUN/Creatinine Ratio 27.7 H Glucose 88 Calcium 8.7 Phosphorus 3.0 Magnesium 2.2 05/30/20 04:45 WBC RBC Hgb Hct MCV MCH MCHC RDW Std Deviation RDW Coeff of Shannan Plt Count MPV Immature Gran % (Auto) Neut % (Auto) Lymph % (Auto) [place] % (Auto) Eos % (Auto) Baso % (Auto) Absolute Neuts (auto) Absolute Lymphs (auto) Nucleated RBC % Differential Comment Anisocytosis Microcytosis Macrocytosis Ovalocytes Sodium 143 Potassium 2.8 L Chloride 101 Carbon Dioxide 38.0 H Anion Gap 4 L BUN 14 Creatinine 0.43 L Estim Creat Clear Calc 143.75 Est GFR (MDRD) Af Amer 194 Est GFR (MDRD) Non-Af 160 BUN/Creatinine Ratio 32.3 H Glucose 204 H Calcium 6.7 L Phosphorus Magnesium Microbiology 05/27/20 15:10 Urine, Catheterized Urine Culture - Final Presumptive C albicans Medical Necessity - Tobacco Use Smoking Status: Former smoker Tobacco Use: Cigarettes Assessment/Plan RECOMMENDATIONS: 1. Increase diuretics to 3 times daily. 2. Okay to resume baseline BiPAP therapy from my perspective 3. Continue anticoagulation 4. No indication for scheduled bronchodilators 5. Okay to leave the intensive care unit from my perspective IMPRESSIONS: 1. Acute on chronic combined respiratory failure secondary to acute on chronic diastolic CHF and cor pulmonale Patient's previous pulmonary function tests were not suggestive of COPD, but does have restriction with elevated pulmonary artery pressures. Clinical suspicion for cor pulmonale leading to hypotension. Patient may have an element of obesity hypoventilation syndrome and is on BiPAP at baseline. Will increase diuretic therapy to 3 times daily. Patient has been doing well on nasal cannula during the day. Okay to resume baseline BiPAP therapy from my perspective. Okay to leave the intensive care unit. 2. Chronic A. fib/hypertension/hyperlipidemia/cor pulmonale/acute on chronic diastolic CHF Okay to continue with anticoagulation and rate control from my perspective. Blood pressures are marginal at this time, but clinical suspicion is starting forces will improve with diuresis. Patient will be given diuretics and monitor output with Kay catheter. Continue to monitor blood pressures. Appreciate cardiology input 3. Hypothyroidism/morbid obesity/history of Proteus infection/venous stasis Complicates care, management, recovery and prognosis. Okay to continue with baseline medications. No indication for transfusion at this time. Wound nurse will follow and intervene as necessary Inpatient E&M: [id number] [facility] Hosp L3
[2020-05-30] MEDS: Acetaminophen 325 MG Tablet 650 MG PO ×2 (08:05→18:36)
[2020-05-30] MEDS: Potassium Chloride 10mEq/100mL 10 MEQ/100 ML IV.SOLN. 50 MEQ IV BOLUS ×3 (08:07→12:22)
[2020-05-30] MEDS: Ondansetron 4 MG/2 ML Vial IV (10:04)
--- NOTE | 2020-05-30 10:09 | PN_ITS ---
Subjective: Chief complaint: Follow-up after admission for acute on chronic diastolic CHF/cor pulmonale and acute on chronic hypoxic and hypercapnic respiratory failure. Patient seen and examined. No acute events overnight. This morning, she is off BiPAP. Currently, she is on 6 L of oxygen. She mentioned that her breathing is much better. Denied other complaints. Blood pressure improved and she has been tolerating IV Lasix. She is afebrile, heart rate stable, pulse ox is 92% on 6 L. - Physical Exam Vitals/I&O's: Vital Signs Temp Pulse Resp BP Pulse Ox 98.4 F 88 24 H 105/63 94 05/30/20 06:00 05/30/20 06:00 05/30/20 06:00 05/30/20 06:00 05/30/20 06:00 Oxygen Flow Rate (L/min) 6 Oxygen Delivery Method Bi-pap Weight: 337 lb 15.498 oz Body Mass Index (BMI) 52.9 Finger Stick Blood Glucose 155 Intake and Output for Last 24 Hours 05/28/20 05/29/20 05/30/20 23:59 23:59 23:59 Intake Total 1770 / 1770 760 / 760 190.00 / 190.00 Output Total 2450 / 2450 2140 / 2140 275 / 275 Balance -680 / -680 -1380 / -1380 -85.00 / -85.00 General: Alert, Oriented x3, Cooperative, - - Mildly short of breath. HEENT: Atraumatic, PERRLA, EOMI, Normocephalic Oral: Moist Mucosa, No Gingival or Mucosal Lesions/ Ulcerations Neck: Supple, No JVD, Negative Carotid Bruits, Trachea Midline, Thyroid Normal Size and Texture Lungs: Clear to auscultation, No rhonchi, No wheeze, No rales, Diminished Cardiovascular: Normal S1, Normal S2, No murmurs, PMI Normal, Irregular Rate Abdomen: Bowel Sounds Present, Soft, Non Tender, Non-Distended, No Hepato- splenomegaly, Obese Extremities: No clubbing, No cyanosis, Edema Skin: No rashes, No breakdown Lymphatic: No Cervical, Supraclavicular, or Inguinal Adenopathy Neurological: Cranial nerves II-XII grossly intact, Neuro grossly intact Psych/Mental Status: Normal Affect, Appropriate, Alert and oriented to time, place, person, mood and affect Microbiology Past 72 Hours 05/27/20 15:10 Urine, Catheterized Urine Culture - Final Presumptive C albicans Laboratory Results 05/30/20 04:45: WBC 4.1 L, RBC 3.13 L, Hgb 8.1 L, Hct 29.8 L, MCV 95.2, MCH 25.9 L, MCHC 27.2 L D, RDW Std Deviation 65.9 H, RDW Coeff of Shannan 19.1 H, Plt Count 204, MPV 11.9, Immature Gran % (Auto) 0.200, Neut % (Auto) 50.9, Lymph % (Auto) 33.8, [place] % (Auto) 9.0, Eos % (Auto) 5.4 H, Baso % (Auto) 0.7, Absolute Neuts (auto) 2.1, Absolute Lymphs (auto) 1.39, Nucleated RBC % 0 05/30/20 04:45: Sodium 143, Potassium 2.8 L, Chloride 101, Carbon Dioxide 38.0 H , Anion Gap 4 L, BUN 14, Creatinine 0.43 L, Estim Creat Clear Calc 143.75, Est GFR (MDRD) Af Amer 194, Est GFR (MDRD) Non-Af 160, BUN/Creatinine Ratio 32.3 H, Glucose 204 H, Calcium 6.7 L Current Medications Acetaminophen (Acetaminophen 325 Mg Tablet) 650 mg PO Q6H PRN PRN PRN Reason: Pain Score 1-10/Temp > 100.7 F Last Admin: 05/30/20 08:05 Dose: 650 mg Documented by: Albuterol Sulfate (Albuterol 2.5 Mg/3 Ml Vial.Neb.) 2.5 mg INHALATION Q4H PRN PRN PRN Reason: WHEEZING Apixaban (Apixaban 5 Mg Tablet) 5 mg PO BID [facility] Last Admin: 05/29/20 21:48 Dose: 5 mg Documented by: Atorvastatin Calcium (Atorvastatin Calcium 40 Mg Tablet) 40 mg PO QHS [facility] Last Admin: 05/29/20 21:48 Dose: 40 mg Documented by: Digoxin (Digoxin 125 Mcg Tablet) 125 mcg PO DAILY [facility] Last Admin: 05/29/20 10:29 Dose: 125 mcg Documented by: Doxepin HCl (Doxepin Hcl 50 Mg Capsule) 50 mg PO QHS [facility] Last Admin: 05/29/20 21:48 Dose: 50 mg Documented by: Ferrous Sulfate (Ferrous Sulfate 325 Mg Tablet) 325 mg PO DAILY@1200 [facility] Last Admin: 05/29/20 10:29 Dose: 325 mg Documented by: Fluoxetine HCl (Fluoxetine 20 Mg Capsule) 60 mg PO DAILY [facility] Last Admin: 05/29/20 10:29 Dose: 60 mg Documented by: Furosemide (Furosemide 40 Mg/4 Ml Vial) 40 mg IV Q8 [facility] Last Admin: 05/30/20 06:37 Dose: 40 mg Documented by: Gabapentin (Gabapentin 300 Mg Capsule) 300 mg PO TID [facility] Last Admin: 05/30/20 06:35 Dose: 300 mg Documented by: Ceftriaxone Sodium (Rocephin) 1 gm in 50 mls @ 100 mls/hr IV Q24 [facility] Last Infusion: 05/29/20 11:00 Dose: Infused Documented by: Levothyroxine Sodium (Levothyroxine 50 Mcg Tablet) 50 mcg PO DAILY@0600 [facility] Last Admin: 05/30/20 06:35 Dose: 50 mcg Documented by: Loperamide HCl (Loperamide 2 Mg Capsule) 2 mg PO Q4H PRN PRN PRN Reason: Diarrhea Melatonin (Melatonin 3 Mg Tablet) 3 mg PO QHS PRN PRN PRN Reason: INSOMNIA Last Admin: 05/29/20 22:31 Dose: 3 mg Documented by: Nystatin (Nystatin Powder 15gm Bottle) 1 applic TOPICAL TID [facility]; Protocol Last Admin: 05/30/20 06:34 Dose: 1 applic Documented by: Ondansetron HCl (Ondansetron 4 Mg/2 Ml Vial) 4 mg IV Q8H PRN PRN PRN Reason: NAUSEA/VOMITING Last Admin: 05/30/20 10:04 Dose: 4 mg Documented by: Potassium Chloride (Potassium Chloride Oral Tablet 20 Meq) 40 meq PO DAILYCM [facility] Last Admin: 05/30/20 08:05 Dose: 40 meq Documented by: Sodium Chloride (0.9% Saline Lock 10 Ml Syringe) 10 - 40 ml IV UD PRN PRN Reason: SALINE FLUSH Last Admin: 05/30/20 10:04 Dose: 20 ml Documented by: Medical Necessity - Tobacco Use Smoking Status: Former smoker Tobacco Use: Cigarettes Assessment/Plan This is a 54 years old female patient [facility] because of worsening shortness of breath and she was found to have acute on chronic diastolic CHF with cor pulmonale complicated by acute on chronic hypoxic and hypercapnic respiratory failure and also found to have acute cystitis. #1 acute on chronic diastolic CHF/cor pulmonale: She is on IV Lasix, increased to 3 times daily. Blood pressure stabilized, she came off BiPAP and currently, she is on nasal cannula at 6 L. Other vital signs are stable, afebrile. EKG revealed A. fib, rate is controlled, no acute ischemic changes. Troponin was negative. She had an echocardiogram done on April, that showed ejection fraction 55%, other findings reviewed. Cardiology on the case. Plan to continue IV diuresis, transfer to PCU, repeat CBC and BMP tomorrow morning. #2 acute on chronic hypoxic and hypercapnic respiratory failure: Secondary to #1, she is on nasal cannula this morning at 6 L. She does use oxygen at home at 4 L as a baseline. Plan as above. #3 acute cystitis: She is IV Rocephin, urine culture revealed presumptive Telma albicans. She has been afebrile, no leukocytosis. Plan to discontinue IV Rocephin. #4 chronic atrial fibrillation: This morning heart rate stable, currently only on Eliquis. Heart rate remained stable on digoxin. Metoprolol and Cardizem were held because of low blood pressure. #5 hypertension: Today, blood pressure improved, she is on IV Lasix 3 times daily. Her antihypertensive medications remained on hold. #6 hypothyroidism: Stable, continue levothyroxine. #7 chronic anemia: Due to anemia of chronic disease. Hemoglobin has been around anywhere between 6 to 8 g/dL. Today's hemoglobin is 8.1 g/dL, stable at baseline. #8 hyperlipidemia: Continue statins. #9 DVT prophylaxis: Continue Eliquis. This note was generated with [employer] dictation software. It may contain incorrect words, spelling, and punctuation that were not noted in checking the note before signing. Inpatient E&M: 26352 Subs Hosp L2
[2020-05-30] MEDS: Loperamide 2 MG Capsule PO ×2 (11:04→18:37)
[2020-05-30] MEDS: APIXABAN 5 MG TABLET PO ×2 (11:04→21:34)
--- NOTE | 2020-05-30 11:08 | NURSING ---
Pt requesting to take AM meds later in the day d/t current nausea
[2020-05-30] MEDS: Digoxin 125 MCG Tablet PO (12:22)
[2020-05-30] MEDS: FLUoxetine 20 MG Capsule 60 MG PO (12:22)
[2020-05-30] MEDS: Ceftriaxone 1 GM/50 ML BAG IV (12:22)
[2020-05-30] MEDS: Ferrous Sulfate 325 MG Tablet PO (12:23)
--- NOTE | 2020-05-30 14:40 | CPS ---
Had to decrease BIPAP settings d/t too much air in her belly with this pressure. Decreased to 18/14. Pt's belly feels full of air and uncomfortable but she will wear BIPAP at decreased settings tonight.
[2020-05-30] MEDS: MELATONIN 3 MG TABLET PO (21:34)
[2020-05-30] MEDS: Atorvastatin Calcium 40 MG Tablet PO (21:34)
[2020-05-30] MEDS: DOXEPIN HCL 50 MG CAPSULE PO (21:34)
[2020-05-31] VITALS (21 sets, daily range): BP systolic 99–109; BP diastolic 40–69; PULSE 81–128; RESP 12–24; TEMP 36.5–36.9; O2SAT 92–98
[2020-05-31] MEDS: Levothyroxine 50 MCG Tablet PO (05:17)
[2020-05-31] MEDS: Furosemide 40 MG/4 ML Vial IV ×3 (05:17→18:00)
[2020-05-31] MEDS: Gabapentin 300 MG Capsule PO ×3 (05:17→21:50)
[2020-05-31] MEDS: 0.9% Saline Lock 10 ML Syringe IV ×3 (05:18→13:26)
[2020-05-31] MEDS: Nystatin Powder 15gm Bottle 1 APPLIC TOPICAL ×3 (05:18→21:50)
[2020-05-31 05:25] LABS: Absolute Lymphocyte Count 1.32 X10^3/uL (0.83-4.51); Absolute Neutrophil Count 2.8 X10^3/uL (2.0-7.7); Basophil# 0.02 X10^3/uL; Basophil% 0.4 % (0-1); Eosinophil# 0.31 X10^3/uL; Eosinophils% 6.4 % (0-5); Hemoglobin 9.3 g/dL (12.0-15.0); Lymphocyte # 1.32 X10^3/ul (4.0); Lymphocyte % 27.1 % (19-41); Mean Corp Hgb Conc 27.4 g/dL (32-36); Mean Corpuscular Hgb 25.8 pg (27.0-32.0); Mean Corpuscular Volume 94.4 fL (81-99); Mean Platelet Vol. 12.1 fl (6.2-12.0); Monocyte# 0.42 X10^3/uL; Monocyte% 8.6 % (0-10); NRBC Flagged by Analyzer 0 % (0-5); Neutrophil # 2.78 X10^3/uL (2.7-7.7); Neutrophil % 57.1 % (47-70); Platelet Count 197 K/mm3 (150-450); RBC Distribution Width CV 18.6 % (11.6-14.6); RBC Distribution Width SD 64.4 fl (35.1-43.9); White Blood Count 4.9 K/mm3 (4.4-11.0)
[2020-05-31 05:43] LABS: Anion Gap 2 (5-15); BUN 19 mg/dL (7-18); BUN/Creat Ratio 30.4 RATIO (10-20); Calcium,Total 8.7 mg/dL (8.5-10.1); Chloride 96 mmol/L (98-107); Creatinine, Serum 0.63 mg/dL (0.55-1.02); EST Glomerular Filtration Rate 105 mL/min (>60); Est Glom Filt Rate - Afr Amer 127 mL/min (>60); Estimated Creatinine Clearance 98.12 ml/min; Glucose 84 mg/dL (74-106); Potassium 3.4 mmol/L (3.5-5.1); Sodium Level 140 mmol/L (136-145)
[2020-05-31] MEDS: Potassium Chloride Oral Tablet 20 MEQ 40 MEQ PO ×2 (09:01→16:28)
[2020-05-31] MEDS: APIXABAN 5 MG TABLET PO ×2 (09:02→21:51)
[2020-05-31] MEDS: FLUoxetine 20 MG Capsule 60 MG PO (09:02)
[2020-05-31] MEDS: Digoxin 125 MCG Tablet PO (09:02)
--- NOTE | 2020-05-31 09:04 | PN.CARD_ITS ---
Subjectve: Patient seen and evaluated. Appears to be doing well and stable. Heart rate better controlled and breathing better. Objective: Vital Signs Temp Pulse Resp BP Pulse Ox 97.7 F L 93 18 105/62 96 05/31/20 04:30 05/31/20 09:02 05/31/20 04:30 05/31/20 04:30 05/31/20 04:30 Oxygen Flow Rate (L/min) 4 Oxygen Delivery Method Nasal Cannula Weight: 335 lb 1.642 oz Body Mass Index (BMI) 52.9 Finger Stick Blood Glucose 155 Intake and Output for Last 24 Hours 05/29/20 05/30/20 05/31/20 23:59 23:59 23:59 Intake Total 760 / 760 680.00 / 680.00 Output Total 2140 / 2140 2525 / 3025 1000 / 1000 Balance -1380 / -1380 -1845.00 / -2345.00 -970 / -970 General: Awake, Alert, Oriented x 3 HEENT: PERRL, EOMI, Sclera Non Icteric Neck: Supple, Good ROM, No Lymph Node Enlargement Lungs: Diminished Dontae Bases Cardiovascular: Irregular Rhythm, Normal S1, Normal S2, No Murmurs, No Rubs, No Gallops Vascular: No Carotid Bruits, Normal Femoral Pulses, Normal Radial Pulses, Normal Dorsalis Pedal Pulse, Normal Posterior Tibial Pulses Abdomen: Bowel Sounds Present, Soft, Non Tender, No HSM, No Organomegaly Extremities: No Cyanosis, No Clubbing, No edema Neurological: No Focal Motor or Sensory Deficit 05/31/20 04:46: WBC 4.9, RBC 3.60 L, Hgb 9.3 L, Hct 34.0 L, MCV 94.4, MCH 25.8 L , MCHC 27.4 L, Plt Count 197, MPV 12.1 H, Immature Gran % (Auto) 0.400, Neut % (Auto) 57.1, Lymph % (Auto) 27.1, [place] % (Auto) 8.6, Eos % (Auto) 6.4 H, Baso % (Auto) 0.4, Absolute Neuts (auto) 2.8, Nucleated RBC % 0 05/31/20 04:46: Sodium 140, Potassium 3.4 L, Chloride 96 L, Carbon Dioxide 42.0 H, Anion Gap 2 L, BUN 19 H, Creatinine 0.63, Est GFR (MDRD) Af Amer 127, Est GFR (MDRD) Non-Af 105, BUN/Creatinine Ratio 30.4 H, Glucose 84, Calcium 8.7 Rhythm: EKG: ECHO: Stress Test: Cardiac Cath: PCI: CT Surgery: Holter monitor: EPS: PPM: CXR: Chest CT Scan: Medical Necessity - Tobacco Use Smoking Status: Former smoker Tobacco Use: Cigarettes Assessment/Plan 1. Congestive heart failure with preserved ejection fraction * Patient presents with an exacerbation of congestive heart failure with preser edward ejection fraction. I suspect the above is secondary to the atrial fibrillation with a rapid ventricular response rate. I would recommend that we diurese her with intravenous Lasix for at least another day, slow down her heart rate with beta-miriam and digoxin as appropriate. * I do not think there is a need for a repeat echocardiogram at this time * I may recommend that as an outpatient should be considered for remote monitoring device. She has had 2 admissions in as many months for decompensation of heart failure * 2. Atrial fibrillation with rapid ventricular response rate. She does have evidence of atrial fibrillation with rapid ventricular response rate. * She has been hypotensive and so it has been difficult to continue her beta- miriam but this can be reinstituted carefully. * If her blood pressure improves I would reinstitute the beta-miriam. * Will start her on p.o. digoxin for now * Thank you for allowing me to participate in the care of your patient. Please don't hesitate to call if any issues arise.
[2020-05-31] MEDS: Ceftriaxone 1 GM/50 ML BAG IV (09:10)
[2020-05-31] MEDS: Ferrous Sulfate 325 MG Tablet PO (11:07)
--- NOTE | 2020-05-31 13:01 | NURSING ---
wound photo: left medial lower leg
--- NOTE | 2020-05-31 17:16 | PN_ITS ---
Objective: Patient is still short of breath, on 4 L of oxygen, bilateral lower extremity swelling up to thigh level. Patient had Jayesh wrap bandage. Physical exam General: Alert, Oriented x3, Cooperative HEENT: Atraumatic, PERRLA, EOMI, Normocephalic Oral: No Gingival or Mucosal Lesions/ Ulcerations Neck: Supple, No JVD, Negative Carotid Bruits Lungs: Air entry diminished in bilateral lung bases. No crepitation/rhonchi Cardiovascular: Irregular rate and rhythm, Normal S1, Normal S2, No murmurs Abdomen: Bowel Sounds Present, Soft, Non Tender, Non-Distended : No renal angle tenderness. No suprapubic tenderness. Extremities: Bilateral lower extremity edema, Capillary Refill Less than 3 Seconds Skin: No rashes, No breakdown Musculoskeletal: No Tenderness to Palpation of Joints or Extremities Neurological: Cranial nerves II-XII grossly intact, Deep Tendon Reflexes 2+/4 and Symmetrical, Neuro grossly intact Psych/Mental Status: Normal Affect, Appropriate. Vitals/I&O's: Vital Signs Temp Pulse Resp BP Pulse Ox 98.2 F 96 16 109/64 95 05/31/20 16:32 05/31/20 16:32 05/31/20 16:32 05/31/20 16:32 05/31/20 16:32 Oxygen Flow Rate (L/min) 4 Oxygen Delivery Method Nasal Cannula Weight: 335 lb 1.642 oz Body Mass Index (BMI) 52.9 Finger Stick Blood Glucose 155 Intake and Output for Last 24 Hours 05/29/20 05/30/20 05/31/20 23:59 23:59 23:59 Intake Total 760 / 760 680.00 / 680.00 320 / 320 Output Total 2140 / 2140 2525 / 3025 1900 / 1900 Balance -1380 / -1380 -1845.00 / -2345.00 -1580 / -1580 Microbiology Past 72 Hours 05/27/20 15:10 Urine, Catheterized Urine Culture - Final Presumptive C albicans Laboratory Results 05/31/20 04:46: WBC 4.9, RBC 3.60 L, Hgb 9.3 L, Hct 34.0 L, MCV 94.4, MCH 25.8 L , MCHC 27.4 L, RDW Std Deviation 64.4 H, RDW Coeff of Shannan 18.6 H, Plt Count 197, MPV 12.1 H, Immature Gran % (Auto) 0.400, Neut % (Auto) 57.1, Lymph % (Auto) 27.1, [place] % (Auto) 8.6, Eos % (Auto) 6.4 H, Baso % (Auto) 0.4, Absolute Neuts (auto) 2.8, Absolute Lymphs (auto) 1.32, Nucleated RBC % 0 05/31/20 04:46: Sodium 140, Potassium 3.4 L, Chloride 96 L, Carbon Dioxide 42.0 H, Anion Gap 2 L, BUN 19 H, Creatinine 0.63, Estim Creat Clear Calc 98.12, Est GFR (MDRD) Af Amer 127, Est GFR (MDRD) Non-Af 105, BUN/Creatinine Ratio 30.4 H, Glucose 84, Calcium 8.7 Current Medications Acetaminophen (Acetaminophen 325 Mg Tablet) 650 mg PO Q6H PRN PRN PRN Reason: Pain Score 1-10/Temp > 100.7 F Last Admin: 05/30/20 18:36 Dose: 650 mg Documented by: Albuterol Sulfate (Albuterol 2.5 Mg/3 Ml Vial.Neb.) 2.5 mg INHALATION Q4H PRN PRN PRN Reason: WHEEZING Apixaban (Apixaban 5 Mg Tablet) 5 mg PO BID [facility] Last Admin: 05/31/20 09:02 Dose: 5 mg Documented by: Atorvastatin Calcium (Atorvastatin Calcium 40 Mg Tablet) 40 mg PO QHS [facility] Last Admin: 05/30/20 21:34 Dose: 40 mg Documented by: Digoxin (Digoxin 125 Mcg Tablet) 125 mcg PO DAILY [facility] Last Admin: 05/31/20 09:02 Dose: 125 mcg Documented by: Doxepin HCl (Doxepin Hcl 50 Mg Capsule) 50 mg PO QHS [facility] Last Admin: 05/30/20 21:34 Dose: 50 mg Documented by: Ferrous Sulfate (Ferrous Sulfate 325 Mg Tablet) 325 mg PO DAILY@1200 [facility] Last Admin: 05/31/20 11:07 Dose: 325 mg Documented by: Fluoxetine HCl (Fluoxetine 20 Mg Capsule) 60 mg PO DAILY [facility] Last Admin: 05/31/20 09:02 Dose: 60 mg Documented by: Furosemide (Furosemide 40 Mg/4 Ml Vial) 40 mg IV Q8 [facility] Last Admin: 05/31/20 13:26 Dose: 40 mg Documented by: Gabapentin (Gabapentin 300 Mg Capsule) 300 mg PO TID [facility] Last Admin: 05/31/20 13:27 Dose: 300 mg Documented by: Ceftriaxone Sodium (Rocephin) 1 gm in 50 mls @ 100 mls/hr IV Q24 [facility] Last Infusion: 05/31/20 09:46 Dose: Infused Documented by: Levothyroxine Sodium (Levothyroxine 50 Mcg Tablet) 50 mcg PO DAILY@0600 [facility] Last Admin: 05/31/20 05:17 Dose: 50 mcg Documented by: Loperamide HCl (Loperamide 2 Mg Capsule) 2 mg PO Q4H PRN PRN PRN Reason: Diarrhea Last Admin: 05/30/20 18:37 Dose: 2 mg Documented by: Melatonin (Melatonin 3 Mg Tablet) 3 mg PO QHS PRN PRN PRN Reason: INSOMNIA Last Admin: 05/30/20 21:34 Dose: 3 mg Documented by: Nystatin (Nystatin Powder 15gm Bottle) 1 applic TOPICAL TID [facility]; Protocol Last Admin: 05/31/20 13:27 Dose: 1 applic Documented by: Ondansetron HCl (Ondansetron 4 Mg/2 Ml Vial) 4 mg IV Q8H PRN PRN PRN Reason: NAUSEA/VOMITING Last Admin: 05/30/20 10:04 Dose: 4 mg Documented by: Potassium Chloride (Potassium Chloride Oral Tablet 20 Meq) 40 meq PO BIDCM [facility] Last Admin: 05/31/20 16:28 Dose: 40 meq Documented by: Sodium Chloride (0.9% Saline Lock 10 Ml Syringe) 10 - 40 ml IV UD PRN PRN Reason: SALINE FLUSH Last Admin: 05/31/20 13:26 Dose: 10 ml Documented by: STROKE Vital Signs/Narrative: Vital Signs Temp Pulse Resp BP Pulse Ox 05/31/20 16:32 98.2 F 96 16 109/64 95 05/31/20 15:01 101 H 05/31/20 13:33 98.5 F 94 16 107/55 L 95 Medical Necessity - Tobacco Use Smoking Status: Former smoker Tobacco Use: Cigarettes Assessment/Plan This is a 54 years old female patient presented to the emergency room from the long term because of worsening shortness of breath and she was found to have acute on chronic diastolic CHF with cor pulmonale complicated by acute on chronic hypoxic and hypercapnic respiratory failure and also found to have acute cystitis. #1 acute on chronic diastolic CHF/cor pulmonale: She is on IV Lasix, increased to 3 times daily. Blood pressure is systolic 100. Currently on 4 L of oxygen.EKG revealed A. fib, rate is controlled, no acute ischemic changes. Troponin was negative. She had an echocardiogram done on April, that showed ejection fraction 55%, other findings reviewed. Cardiology on the case. Plan to continue IV diuresis, transfer to PCU, repeat CBC and BMP tomorrow morning. #2 acute on chronic hypoxic and hypercapnic respiratory failure, secondary to heart failure exacerbation: As mentioned above. At her baseline, 4 L of oxygen. #3 Telma albicans urinary contamination. UTI ruled out: IV Rocephin discontinued. She is IV Rocephin, urine culture revealed presumptive Telma albicans. She has been afebrile, no leukocytosis. Plan to discontinue IV Rocephin. #4 chronic atrial fibrillation: A. fib, heart rate controlled. Currently only on Eliquis. Heart rate remained stable on digoxin. Metoprolol and Cardizem were held because of low blood pressure. #5 hypertension: Today, blood pressure improved, she is on IV Lasix 3 times daily. Her antihypertensive medications remained on hold. #6 hypothyroidism: Stable, continue levothyroxine. #7 chronic anemia: Due to anemia of chronic disease. Hemoglobin has been around anywhere between 6 to 8 g/dL. Today's hemoglobin is 8.1 g/dL, stable at baseline. #8 hyperlipidemia: Continue statins. #9 DVT prophylaxis: Continue Eliquis Inpatient E&M: 10251 Rust Hosp L2
[2020-05-31] MEDS: Metoprolol Tartrate 25 MG Tablet PO (17:59)
[2020-05-31] MEDS: Atorvastatin Calcium 40 MG Tablet PO (21:51)
[2020-05-31] MEDS: MELATONIN 3 MG TABLET PO (21:51)
[2020-05-31] MEDS: DOXEPIN HCL 50 MG CAPSULE PO (21:51)
[2020-06-01] VITALS (15 sets, daily range): BP systolic 89–100; BP diastolic 43–53; PULSE 74–90; RESP 12–20; TEMP 36.6–37.1; O2SAT 92–100
[2020-06-01] MEDS: Levothyroxine 50 MCG Tablet PO (05:40)
[2020-06-01] MEDS: Nystatin Powder 15gm Bottle 1 APPLIC TOPICAL ×2 (05:40→13:51)
[2020-06-01] MEDS: Gabapentin 300 MG Capsule PO ×2 (05:41→13:51)
[2020-06-01 06:37] LABS: Absolute Lymphocyte Count 1.45 X10^3/uL (0.83-4.51); Absolute Neutrophil Count 2.5 X10^3/uL (2.0-7.7); Basophil# 0.03 X10^3/uL; Basophil% 0.6 % (0-1); Eosinophils% 6.1 % (0-5); Hematocrit 32.6 % (37-47); Hemoglobin 8.8 g/dL (12.0-15.0); Lymphocyte # 1.45 X10^3/ul (4.0); Lymphocyte % 29.5 % (19-41); Mean Corpuscular Hgb 25.9 pg (27.0-32.0); Mean Corpuscular Volume 95.9 fL (81-99); Mean Platelet Vol. 12.2 fl (6.2-12.0); Monocyte# 0.58 X10^3/uL; Monocyte% 11.8 % (0-10); NRBC Flagged by Analyzer 0 % (0-5); Neutrophil # 2.54 X10^3/uL (2.7-7.7); Neutrophil % 51.6 % (47-70); Platelet Count 190 K/mm3 (150-450); RBC Distribution Width CV 18.4 % (11.6-14.6); RBC Distribution Width SD 64.8 fl (35.1-43.9); White Blood Count 4.9 K/mm3 (4.4-11.0)
[2020-06-01 07:13] LABS: Anion Gap 4 (5-15); BUN 21 mg/dL (7-18); BUN/Creat Ratio 36.3 RATIO (10-20); Calcium,Total 8.4 mg/dL (8.5-10.1); Chloride 92 mmol/L (98-107); Creatinine, Serum 0.58 mg/dL (0.55-1.02); EST Glomerular Filtration Rate 115 mL/min (>60); Est Glom Filt Rate - Afr Amer 139 mL/min (>60); Estimated Creatinine Clearance 106.58 ml/min; Glucose 84 mg/dL (74-106); Potassium 3.3 mmol/L (3.5-5.1); Sodium Level 141 mmol/L (136-145)
--- NOTE | 2020-06-01 08:15 | PN.CARD_ITS ---
Subjectve: Patient seen and evaluated. Appears to doing better today. Objective: Vital Signs Temp Pulse Resp BP Pulse Ox 98.0 F 74 18 96/53 L 92 06/01/20 03:40 06/01/20 07:00 06/01/20 04:55 06/01/20 03:40 06/01/20 06:35 Oxygen Flow Rate (L/min) 4 Oxygen Delivery Method Nasal Cannula Weight: 333 lb 1.895 oz Body Mass Index (BMI) 52.9 Finger Stick Blood Glucose 155 Intake and Output for Last 24 Hours 05/30/20 05/31/20 06/01/20 23:59 23:59 23:59 Intake Total 680.00 / 680.00 1060 / 1060 200 / 200 Output Total 2525 / 3025 4250 / 4250 350 / 350 Balance -1845.00 / -2345.00 -3190 / -3190 -150 / -150 General: Awake, Alert, Oriented x 3 HEENT: PERRL, EOMI, Sclera Non Icteric Neck: Supple, Good ROM, No Lymph Node Enlargement Lungs: Clear to auscultation Cardiovascular: Irregular Rhythm, Normal S1, Normal S2, No Murmurs, No Rubs, No Gallops 06/01/20 05:20: WBC 4.9, RBC 3.40 L, Hgb 8.8 L, Hct 32.6 L, MCV 95.9, MCH 25.9 L , MCHC 27.0 L, Plt Count 190, MPV 12.2 H, Immature Gran % (Auto) 0.400, Neut % (Auto) 51.6, Lymph % (Auto) 29.5, [place] % (Auto) 11.8 H, Eos % (Auto) 6.1 H, Baso % (Auto) 0.6, Absolute Neuts (auto) 2.5, Nucleated RBC % 0 06/01/20 05:20: Sodium 141, Potassium 3.3 L, Chloride 92 L, Carbon Dioxide 45.0 H, Anion Gap 4 L, BUN 21 H, Creatinine 0.58, Est GFR (MDRD) Af Amer 139, Est GFR (MDRD) Non-Af 115, BUN/Creatinine Ratio 36.3 H, Glucose 84, Calcium 8.4 L, Magnesium 2.0 Rhythm: EKG: ECHO: Stress Test: Cardiac Cath: PCI: CT Surgery: Holter monitor: EPS: PPM: CXR: Chest CT Scan: Medical Necessity - Tobacco Use Smoking Status: Former smoker Tobacco Use: Cigarettes Assessment/Plan 1. Congestive heart failure with preserved ejection fraction * Patient presents with an exacerbation of congestive heart failure with preserved ejection fraction. I suspect the above is secondary to the atrial fibrillation with a rapid ventricular response rate. I would recommend that we diurese her with intravenous Lasix for at least another day, slow down her heart rate with beta-miriam and digoxin as appropriate. * I do not think there is a need for a repeat echocardiogram at this time * I may recommend that as an outpatient should be considered for remote monitoring device. She has had 2 admissions in as many months for decompensation of heart failure * 2. Atrial fibrillation with rapid ventricular response rate. She does have evidence of atrial fibrillation with rapid ventricular response rate. * She has been hypotensive and so it has been difficult to continue her beta- miriam but this can be reinstituted carefully. * If her blood pressure improves I would reinstitute the beta-miriam. * Will continue her on p.o. digoxin for now * Thank you for allowing me to participate in the care of your patient. Please don't hesitate to call if any issues arise.
[2020-06-01] MEDS: Potassium Chloride 10mEq/100mL 10 MEQ/100 ML IV.SOLN. 100 MEQ IV BOLUS ×2 (09:00→10:19)
[2020-06-01] MEDS: 0.9% Saline Lock 10 ML Syringe IV ×2 (09:00→17:02)
[2020-06-01] MEDS: APIXABAN 5 MG TABLET PO (09:10)
[2020-06-01] MEDS: FLUoxetine 20 MG Capsule 60 MG PO (09:10)
[2020-06-01] MEDS: Potassium Chloride Oral Tablet 20 MEQ 40 MEQ PO ×2 (09:10→16:23)
[2020-06-01] MEDS: Digoxin 125 MCG Tablet PO (09:11)
[2020-06-01] MEDS: Furosemide 40 MG/4 ML Vial IV ×2 (09:12→17:02)
[2020-06-01] MEDS: Ceftriaxone 1 GM/50 ML BAG IV (10:31)
[2020-06-01] MEDS: Ferrous Sulfate 325 MG Tablet PO (11:20)
--- NOTE | 2020-06-01 11:30 | PCM.TXEXTCAR ---
- Diet 05/27/20 19:28 Diet: Cardiac: Calorie-Controlled Food consistency:: Regular Liquid Consistency:: Regular/Thin Type of Dietary Supplement:: Pedro Pablo Is pt able to select menu?: Yes Fluid restriction:: 1500 mL Diet Comments: w/ breakfast and dinner How many daily calories?: 1600 calorie - Routine Orders/Code Status Suppository Type: Dulcolax 10mg Suppository Frequency: Daily PRN Code Status: Full Code - Wound(s) LLE Wound Type: healing surgical wound Dressing Change: AntiMicrobial (Aquacel AG, etc) - Therapies Weight Bearing: Weight bearing as tolerated Extremity Affected:: Bilateral Lower Physical Therapy: Eval and Treat Occupational Therapy: Eval and Treat Speech Therapy: Eval and Treat - Allergies/Procedures Done in Hospital Allergies/Adverse Reactions: Allergies No Known Allergies Allergy (Verified 05/27/20 13:51) - Type of Care/Length of Stay Estimated LOS: Convalescent Care Less Than 30 days Type of Care Needed: Skilled Rehab Potential: Good Prognosis: Good - Additional Orders/Day of Discharge Day of Discharge: 06/01/20 - Dietary and Speech Recommendations Dietitian Recommendations/Changes: Continue 1600 calorie controlled, cardiac, w/ 1500mL fluid restriction, Pedro Pablo BID for wound healing. - Follow Up Care Primary Care Physician: Nabor Garcia Chi, MD [Primary Care Provider] - Please follow up with your Primary Care Physician in: in 2 weeks Please Follow Up With: Andrew Espinal MD When: in 4 weeks
--- NOTE | 2020-06-01 11:51 | PCM.DC ---
- Discharge Diagnoses Current Active Problems: Current Active and Chronic Problems (Last Updated 05/28/20 @ 09:[address] Abdoul Cuellar MD) Peripheral neuropathy (Chronic) Bilateral chronic knee pain (Chronic) Morbid obesity with BMI of 50.0-59.9, adult (Chronic) Frequent falls (Chronic) H/O methicillin resistant Staphylococcus aureus (Chronic) Ulcer of left lower extremity with fat layer exposed (Chronic) shelter (current) use of anticoagulants (Chronic) Eliquis JASMIN (obstructive sleep apnea) (Chronic) Bipap 01/10 Chronic atrial fibrillation (Chronic) Chronic diastolic (congestive) heart failure (Chronic) on chronic Essential (primary) hypertension (Chronic) Allergies/Adverse Reactions: Allergies No Known Allergies Allergy (Verified 05/27/20 13:51) Medications to take at Discharge Atorvastatin Calcium 40 mg PO QHS 04/24/19 Doxepin HCl 50 mg PO QHS 04/24/19 Gabapentin [Neurontin] 300 mg PO TID 04/24/19 Apixaban [Eliquis] 5 mg PO BID 05/06/20 Ascorbic Acid [Vitamin C] 1,000 mg PO BID 05/06/20 Ferrous Sulfate 325 mg PO DAILY 05/06/20 Guaifenesin [Mucinex] 600 mg PO BID 05/06/20 Levothyroxine Sodium [Synthroid] 50 mcg PO DAILY 05/06/20 Albuterol Inhaler [Ventolin Hfa] 2 puff INHALATION Q4H PRN PRN 05/24/20 Menthol [Biofreeze] 1 applic TP QHS 05/24/20 Nystatin Powder [Mycostatin Powder] 1 applic TOPICAL BID 05/24/20 Fluoxetine [Prozac] 60 mg PO DAILY 05/27/20 Digoxin [Lanoxin] 125 mcg PO DAILY tab 06/01/20 Diltiazem CD [Cardizem CD] 120 mg PO DAILY cap 06/01/20 Metoprolol Tartrate [Lopressor (beta miriam)] 25 mg PO BID tab 06/01/20 Potassium Chloride Oral Tablet [K-Dur] 20 meq PO DAILY #0 06/01/20 Spironolactone 25 mg PO DAILY #30 tab 06/01/20 Torsemide 20 mg PO BID #60 tab 06/01/20 The following prescriptions were given: Spironolactone 25 mg PO DAILY #30 tab Transmission Status: Pending to [facility] [address] [facility] Torsemide 20 mg PO BID #60 tab Transmission Status: Pending to [id number] [facility] [place] Primary Care Physician: Nabor Garcia Chi, MD [Primary Care Provider] - Test Results: Test results from this visit will be discussed in further detail at your follow-up appointment, if applicable.
--- NOTE | 2020-06-01 11:51 | PCM.DC.SUM ---
Discharge Date and Diagnosis Date of Admission: 05/28/20 Date of Discharge: 06/01/20 - Secondary Discharge Diagnosis Chronic Problems: Chronic Problems (Last Updated 05/28/20 @ 09:[address] Abdoul Cuellar MD) Peripheral neuropathy (Chronic) Bilateral chronic knee pain (Chronic) Morbid obesity with BMI of 50.0-59.9, adult (Chronic) Frequent falls (Chronic) H/O methicillin resistant Staphylococcus aureus (Chronic) Ulcer of left lower extremity with fat layer exposed (Chronic) Contusion of left lower leg, sequela (Chronic) [facility] (current) use of anticoagulants (Chronic) Eliquis JASMIN (obstructive sleep apnea) (Chronic) Bipap 01/10 Chronic atrial fibrillation (Chronic) Chronic diastolic (congestive) heart failure (Chronic) on chronic Essential (primary) hypertension (Chronic) Hospital Course and Treatment Consultations 05/27/20 20:57 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 #1 acute on chronic diastolic CHF/cor pulmonale: She is on IV Lasix, increased to 3 times daily. Blood pressure is systolic 100. Currently on 4 L of oxygen.EKG revealed A. fib, rate is controlled, no acute ischemic changes. Troponin was negative. She had an echocardiogram done on April, that showed ejection fraction 55%, other findings reviewed. Cardiology on the case. Discussed with the scientist immunology. Patient is being discharged on torsemide 20 mg p.o. twice daily, spironolactone 25 mg daily and potassium supplement decreased to 20 mg daily. Advised BMP and magnesium twice weekly and CBC weekly. #2 acute on chronic hypoxic and hypercapnic respiratory failure, secondary to heart failure exacerbation: As mentioned above. At her baseline, 4 L of oxygen. #3 Telma albicans urinary contamination. UTI ruled out: IV Rocephin discontinued. Initially patient was on IV Rocephin, urine culture revealed presumptive Telma albicans. She has been afebrile, no leukocytosis. #4 chronic atrial fibrillation, with RVR during hospital course: Currently only on Eliquis. Heart rate remained stable on digoxin. Initially, metoprolol and Cardizem were held because of low blood pressure but resumed with holding parameters as patient was getting tachycardic on 05/31. #5 History of hypertension but patient was mildly hypotensive due to Lasix. Not a candidate for LAZARO/ARB until her blood pressure improves #6 hypothyroidism: Stable, continue levothyroxine. #7 chronic anemia: Due to anemia of chronic disease. Hemoglobin has been around anywhere between 6 to 8 g/dL. Today's hemoglobin is 8.1 g/dL, stable at baseline. #8 hyperlipidemia: Continue statins. #9 DVT prophylaxis: Continue Eliquis Discharge medication reconciliation done. Discharge follow-up instructions completed. Discharge process discussed with the patient and all questions were answered to patient's satisfaction. Total time spent, exact 35 minutes on discharge meds reconciliation, examination, coordination of care with nurses and ancillary staff, review of imaging and blood test and discussion with the patient on follow-up instructions Objective: Patient shortness of breath is better. Blood pressure 97/52 but asymptomatic, denies dizziness or lightheadedness. On Lasix. On 4 L of oxygen baseline. Physical exam General: Alert, Oriented x3, Cooperative HEENT: Atraumatic, PERRLA, EOMI, Normocephalic Oral: No Gingival or Mucosal Lesions/ Ulcerations Neck: Supple, No JVD, Negative Carotid Bruits Lungs: Air entry diminished in bilateral lung bases. No crepitation/rhonchi Cardiovascular: Irregular rate and rhythm, Normal S1, Normal S2, No murmurs Abdomen: Bowel Sounds Present, Soft, Non Tender, Non-Distended : No renal angle tenderness. No suprapubic tenderness. Extremities: Bilateral lower extremity edema, improving. Capillary Refill Less than 3 Seconds Skin: No rashes, No breakdown Musculoskeletal: No Tenderness to Palpation of Joints or Extremities Neurological: Cranial nerves II-XII grossly intact, Deep Tendon Reflexes 2+/4 and Symmetrical, Neuro grossly intact Psych/Mental Status: Normal Affect, Appropriate. - Physical Exam Vitals/I&O's: Vital Signs Temp Pulse Resp BP Pulse Ox 97.8 F 87 18 92/43 L 96 06/01/20 10:25 06/01/20 10:31 06/01/20 10:25 06/01/20 10:31 06/01/20 10:25 Oxygen Flow Rate (L/min) 4 Oxygen Delivery Method Nasal Cannula Weight: 333 lb 1.895 oz Body Mass Index (BMI) 52.9 Finger Stick Blood Glucose 155 Intake and Output for Last 24 Hours 05/30/20 05/31/20 06/01/20 23:59 23:59 23:59 Intake Total 680.00 / 680.00 1060 / 1060 450 / 450 Output Total 2525 / 3025 4250 / 4250 350 / 350 Balance -1845.00 / -2345.00 -3190 / -3190 100 / 100 Laboratory Results 06/01/20 05:20: WBC 4.9, RBC 3.40 L, Hgb 8.8 L, Hct 32.6 L, MCV 95.9, MCH 25.9 L, MCHC 27.0 L, RDW Std Deviation 64.8 H, RDW Coeff of Shannan 18.4 H, Plt Count 190, MPV 12.2 H, Immature Gran % (Auto) 0.400, Neut % (Auto) 51.6, Lymph % (Auto) 29.5, [place] % (Auto) 11.8 H, Eos % (Auto) 6.1 H, Baso % (Auto) 0.6, Absolute Neuts (auto) 2.5, Absolute Lymphs (auto) 1.45, Nucleated RBC % 0 06/01/20 05:20: Sodium 141, Potassium 3.3 L, Chloride 92 L, Carbon Dioxide 45.0 H, Anion Gap 4 L, BUN 21 H, Creatinine 0.58, Estim Creat Clear Calc 106.58, Est GFR (MDRD) Af Amer 139, Est GFR (MDRD) Non-Af 115, BUN/Creatinine Ratio 36.3 H, Glucose 84, Calcium 8.4 L, Magnesium 2.0 Current Medications Acetaminophen (Acetaminophen 325 Mg Tablet) 650 mg PO Q6H PRN PRN PRN Reason: Pain Score 1-10/Temp > 100.7 F Last Admin: 05/30/20 18:36 Dose: 650 mg Documented by: Albuterol Sulfate (Albuterol 2.5 Mg/3 Ml Vial.Neb.) 2.5 mg INHALATION Q4H PRN PRN PRN Reason: WHEEZING Apixaban (Apixaban 5 Mg Tablet) 5 mg PO BID COUNT INCLUDES THE [facility] Last Admin: 06/01/20 09:10 Dose: 5 mg Documented by: Atorvastatin Calcium (Atorvastatin Calcium 40 Mg Tablet) 40 mg PO QHS COUNT INCLUDES THE [facility] Last Admin: 05/31/20 21:51 Dose: 40 mg Documented by: Digoxin (Digoxin 125 Mcg Tablet) 125 mcg PO DAILY COUNT INCLUDES THE [facility] Last Admin: 06/01/20 09:11 Dose: 125 mcg Documented by: Diltiazem HCl (Diltiazem Cd 120 Mg Capsule) 120 mg PO DAILY COUNT INCLUDES THE [facility] Last Admin: 06/01/20 10:31 Dose: Not Given Documented by: Doxepin HCl (Doxepin Hcl 50 Mg Capsule) 50 mg PO QHS COUNT INCLUDES THE [facility] Last Admin: 05/31/20 21:51 Dose: 50 mg Documented by: Ferrous Sulfate (Ferrous Sulfate 325 Mg Tablet) 325 mg PO DAILY@1200 COUNT INCLUDES THE [facility] Last Admin: 06/01/20 11:20 Dose: 325 mg Documented by: Fluoxetine HCl (Fluoxetine 20 Mg Capsule) 60 mg PO DAILY COUNT INCLUDES THE [facility] Last Admin: 06/01/20 09:10 Dose: 60 mg Documented by: Furosemide (Furosemide 40 Mg/4 Ml Vial) 40 mg IV 1000,1800 COUNT INCLUDES THE [facility] Last Admin: 06/01/20 09:12 Dose: 40 mg Documented by: Gabapentin (Gabapentin 300 Mg Capsule) 300 mg PO TID COUNT INCLUDES THE [facility] Last Admin: 06/01/20 05:41 Dose: 300 mg Documented by: Ceftriaxone Sodium (Rocephin) 1 gm in 50 mls @ 100 mls/hr IV Q24 COUNT INCLUDES THE [facility] Last Infusion: 06/01/20 11:01 Dose: Infused Documented by: Levothyroxine Sodium (Levothyroxine 50 Mcg Tablet) 50 mcg PO DAILY@0600 COUNT INCLUDES THE [facility] Last Admin: 06/01/20 05:40 Dose: 50 mcg Documented by: Loperamide HCl (Loperamide 2 Mg Capsule) 2 mg PO Q4H PRN PRN PRN Reason: Diarrhea Last Admin: 05/30/20 18:37 Dose: 2 mg Documented by: Melatonin (Melatonin 3 Mg Tablet) 3 mg PO QHS PRN PRN PRN Reason: INSOMNIA Last Admin: 05/31/20 21:51 Dose: 3 mg Documented by: Metoprolol Tartrate (Metoprolol Tartrate 25 Mg Tablet) 25 mg PO BID COUNT INCLUDES THE [facility] Last Admin: 06/01/20 10:31 Dose: Not Given Documented by: Nystatin (Nystatin Powder 15gm Bottle) 1 applic TOPICAL TID COUNT INCLUDES THE [facility]; Protocol Last Admin: 06/01/20 05:40 Dose: 1 applic Documented by: Ondansetron HCl (Ondansetron 4 Mg/2 Ml Vial) 4 mg IV Q8H PRN PRN PRN Reason: NAUSEA/VOMITING Last Admin: 05/30/20 10:04 Dose: 4 mg Documented by: Potassium Chloride (Potassium Chloride Oral Tablet 20 Meq) 40 meq PO BIDCM COUNT INCLUDES THE [facility] Last Admin: 06/01/20 09:10 Dose: 40 meq Documented by: Sodium Chloride (0.9% Saline Lock 10 Ml Syringe) 10 - 40 ml IV UD PRN PRN Reason: SALINE FLUSH Last Admin: 06/01/20 09:00 Dose: 10 ml Documented by: Home Medications: Medications to take at Discharge Atorvastatin Calcium 40 mg PO QHS 04/24/19 Doxepin HCl 50 mg PO QHS 04/24/19 Gabapentin [Neurontin] 300 mg PO TID 04/24/19 Apixaban [Eliquis] 5 mg PO BID 05/06/20 Ascorbic Acid [Vitamin C] 1,000 mg PO BID 05/06/20 Ferrous Sulfate 325 mg PO DAILY 05/06/20 Guaifenesin [Mucinex] 600 mg PO BID 05/06/20 Levothyroxine Sodium [Synthroid] 50 mcg PO DAILY 05/06/20 Albuterol Inhaler [Ventolin Hfa] 2 puff INHALATION Q4H PRN PRN 05/24/20 Menthol [Biofreeze] 1 applic TP QHS 05/24/20 Nystatin Powder [Mycostatin Powder] 1 applic TOPICAL BID 05/24/20 Fluoxetine [Prozac] 60 mg PO DAILY 05/27/20 Digoxin [Lanoxin] 125 mcg PO DAILY tab 06/01/20 Diltiazem CD [Cardizem CD] 120 mg PO DAILY cap 06/01/20 Metoprolol Tartrate [Lopressor (beta miriam)] 25 mg PO BID tab 06/01/20 Potassium Chloride Oral Tablet [K-Dur] 20 meq PO DAILY #0 06/01/20 Spironolactone 25 mg PO DAILY #30 tab 06/01/20 Torsemide 20 mg PO BID #60 tab 06/01/20 Following Prescriptions Were Given to Patient: Spironolactone 25 mg PO DAILY #30 tab Transmission Status: Received by [id number] Torsemide 20 mg PO BID #60 tab Transmission Status: Received by [id number] Primary Care Physician: Nabor Garcia Chi, MD [Primary Care Provider] - Medical Necessity - Tobacco Use Smoking Status: Former smoker Tobacco Use: Cigarettes Meaningful Use Info Meaningful Use Diagnoses (Choose all that apply): CHF - CHF LAZARO/ARB ordered at discharge?: No Reason LAZARO/ARB not ordered?: Hypotension - Patient blood pressure low, 97/52 Documented LVEF (%): 55
--- NOTE | 2020-06-01 13:30 | CASEMGMT ---
Patient is read for discharge today. DEBBIE arranged for patient to get picked up at 7p via cot. 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 SW notified patient. She said she will notify her significant other. DEBBIE will notify RN. Plan: d/c back to [place] under intermediate level of care. [facility] will transport patient via cot at 1900. Paradise GARCIA MSW
--- NOTE | 2020-06-01 14:46 | PHA.DC.MR ---
Pharmacy Service has performed discharge medication reconciliation for this patient. The patient's discharge medication list was reviewed for discrepancies and discrepancies were resolved. Home Medications Atorvastatin Calcium 40 mg PO QHS 04/24/19 Doxepin HCl 50 mg PO QHS 04/24/19 Gabapentin [Neurontin] 300 mg PO TID 04/24/19 Apixaban [Eliquis] 5 mg PO BID 05/06/20 Ascorbic Acid [Vitamin C] 1,000 mg PO BID 05/06/20 Ferrous Sulfate 325 mg PO DAILY 05/06/20 Guaifenesin [Mucinex] 600 mg PO BID 05/06/20 Levothyroxine Sodium [Synthroid] 50 mcg PO DAILY 05/06/20 Albuterol Inhaler [Ventolin Hfa] 2 puff INHALATION Q4H PRN PRN 05/24/20 Menthol [Biofreeze] 1 applic TP QHS 05/24/20 Nystatin Powder [Mycostatin Powder] 1 applic TOPICAL BID 05/24/20 Fluoxetine [Prozac] 60 mg PO DAILY 05/27/20 Digoxin [Lanoxin] 125 mcg PO DAILY tab 06/01/20 Diltiazem CD [Cardizem CD] 120 mg PO DAILY cap 06/01/20 Metoprolol Tartrate [Lopressor (beta miiram)] 25 mg PO BID tab 06/01/20 Potassium Chloride Oral Tablet [K-Dur] 20 meq PO DAILY #0 06/01/20 Spironolactone 25 mg PO DAILY #30 tab 06/01/20 Torsemide 20 mg PO BID #60 tab 06/01/20
--- NOTE | 2020-06-01 16:49 | NURSING ---
Report given to Cyndee at [facility].
== END 2020-06-01 19:09 | disposition skilled nursing facility (03) | DRG 291 ==
LOC: ED 15:38 → PCU 16:43 → ICU 05-28 07:07 → PCU 05-28 07:28 → ICU 05-30 10:27 → PCU 05-30 15:19
PROVIDERS: Hospitalist; Internal Medicine Critical Care Medicine; Admitting Provider Family Medicine; Emergency Provider Emergency Medicine; PCP Family Medicine Geriatric Medicine; Visit Provider Internal Medicine
DX: I11.0 Hypertensive heart disease with heart failure (principal); J96.21 Acute and chronic respiratory failure with hypoxia; J96.22 Acute and chronic respiratory failure with hypercapnia; I48.19 Other persistent atrial fibrillation; E87.2 Acidosis; Z68.43 Body mass index [BMI] 50.0-59.9, adult; E66.2 Morbid (severe) obesity with alveolar hypoventilation; L97.922 Non-pressure chronic ulcer of unspecified part of left lower leg with fat layer exposed; I50.33 Acute on chronic diastolic (congestive) heart failure; S80.12XS Contusion of left lower leg, sequela; X58.XXXS Exposure to other specified factors, sequela; I95.9 Hypotension, unspecified; J44.9 Chronic obstructive pulmonary disease, unspecified; E11.42 Type 2 diabetes mellitus with diabetic polyneuropathy; D63.8 Anemia in other chronic diseases classified elsewhere; E78.5 Hyperlipidemia, unspecified; E03.9 Hypothyroidism, unspecified; M19.90 Unspecified osteoarthritis, unspecified site; R29.6 Repeated falls; G89.29 Other chronic pain; Z79.01 Long term (current) use of anticoagulants; Z79.890 Hormone replacement therapy; Z79.899 Other long term (current) drug therapy; Z86.16 Personal history of COVID-19; Z86.14 Personal history of Methicillin resistant Staphylococcus aureus infection; Z87.01 Personal history of pneumonia (recurrent); Z87.891 Personal history of nicotine dependence
CPT/HCPCS: 11042; 11045; 36415; 36600; 71045; 80048; 81001; 82803; 83735; 83880; 84100; 84484; 85025; 87086; 87088; 87426; 93005; 94002; 94003; 97163; 97166; 97530; 97535; 99213; 99285; J7030; J7040; A4216; G0463; J1940; J2405

== ENCOUNTER 2020-07-05 13:45 | Outpatient (RCR) | payer MEDICARE, MEDICAID, SELFPAY ==
[2020-05-27 17:41] VITALS: BMI 52.9
[2020-06-07 00:04] VITALS: BP 83/57; PULSE 84; RESP 18; TEMP 35.8
[2020-06-09 09:13] VITALS: BMI 48.9
[2020-06-14 13:44] VITALS: BP 104/59; PULSE 70; RESP 16; TEMP 35.9; BMI 48.9
--- NOTE | 2020-06-14 15:25 | PN.PCM_ITS ---
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 History of Wound: Surgery 02/13/20 - Surgical preparation left medial leg with incision and drainage and evacuation traumatic painful infected necrotic hematoma and excisional debridement overlying compromised skin with necrosis (256 cm2). Wound care - Silver dressing changes daily. Operative culture - Proteus mirabilis. She was treated with Keflex and has finished them. Prealbumin from 02/14/20 was 6.4. Encourage nutritional supplementation with protein to help the healing process. HgbA1c from 02/11/20 was 5.9. Today she denies fever. Her appetite is good. Progress of Wound: Improved. - Physical Exam Vital Signs Temp Pulse Resp BP 96.6 F L 70 16 104/59 L 06/14/20 13:44 06/14/20 13:44 06/14/20 13:44 06/14/20 13:44 General: Alert, Oriented x3, Cooperative HEENT: Atraumatic Oral: Moist Mucosa Lungs: Normal air movement Cardiovascular: Regular rate Abdomen: Obese Extremities: Capillary Refill Less than 3 Seconds, Edema Skin: Ulcer/ Wound - Left medial leg ulcer is pink. Increased biofilm due to missing several appointments. Wound Measurements and Assessment WC - Nurse 1 - General Ulcer Measurement Start: 06/14/20 13:44 Freq: Status: Active Protocol: Activity Type Activity Date Activity User E-Sign Co-Sign Detail Recorded Client Recorded Date Recorded By Document 06/14/20 13:44 DL [id number] 06/14/20 13:58 DL 06/14/20 13:44 Wound Center Nurse 1 [Ulcer Assessment] #3- L MEDIAL LE -Combined with other wound No -Current Size (cm) - Length 10.6 -Current Size (cm) - Width 6.0 -Current Size (cm) - Depth 0.1 -Total Square Cm 63.60 -Photo Taken No -Epithelialization Medium 34-66% -Tunneling No -Undermining/Tunneling No -Circular Undermining No -Exudate Amt Medium -Exudate Type Serosanguineous -Wound Margin Fibrotic Scar, Thickened Scar -Granulation Amt Large (67-100%) -Granulation Quality Red -Slough/Fibrin Yes -Necrosis Amt Small (1-33%) -Necrotic Tissue Type Adherent Slough -Structure Exposed N/A -Texture (Adriana-wound Skin Appearance) Assessed, Localized Edema -Moisture (Adriana-wound Skin Appearance Assessed,Dry/ ) Scaly -Color (Adriana-wound Skin Appearance) Assessed -Temperature (Adriana-wound Skin No Abnormality Appearance) (Pt Warm) -Tenderness on Palpation (Adriana-wound No Skin Appearance) -Ulcer Cleansing Rinsed/ Irrigated with Saline -Foul Odor after Cleansing No -Anesthetic Used 4% Lidocaine Solution [Edema Assessment] -Lower Limb Edema Present Yes -Left Calf (cm) 44.5 -Left Ankle (cm) 22.5 WC - Nurse 2 - General Ulcer CM Notes Start: 06/14/20 13:44 Freq: Status: Active Protocol: Activity Type Activity Date Activity User E-Sign Co-Sign Detail Recorded Client Recorded Date Recorded By Document 06/14/20 14:22 [id number] 06/14/20 14:25 06/14/20 14:22 Wound Center Nurse 2 [Procedure/Treatment] #3- L MEDIAL LE -Time 14:22 -Correct Patient Yes -Correct Side, Site, Position Yes -Correct Procedure Yes -Procedure Performed Yes -Type of Procedure Debridement -Clinical Debridement Subcutaneous -Tissue Removed Subcutaneous -Post Debridement (cm) - Length 9.5 -Post Debridement (cm) - Width 9.5 -Post Debridement (cm) - Depth 0.1 -Total Square (Post) (cm) 90.25 -Area of Debridement (cm) - Length 9.5 -Area of Debridement (cm) - Width 9.5 -Total Square (Area) (cm) 90.25 -Tunneling No -Undermining/Tunneling No -Circular Undermining No -Wound/Ulcer Outcome Not Healed -Ulcer Cleansing Rinsed/ Irrigated with Saline -Foul Odor after Cleansing No -Bioengineered Tissue No -Bleeding Controlled with Pressure -Offloading No -Treatment Response Procedure Tolerated Well -Debridement - Subq, 1st 20sq cm Yes -Debridement, SubQ, ea addt'l 20sq cm 4 or part thereof [See Physician Procedure note for Specifics] Pain Scale: 0-10 Numeric [Pain] -Is Patient Pain Free? Yes - Nurse 3 - General Ulcer D/C NN Start: 06/14/20 13:44 Freq: Status: Active Protocol: Activity Type Activity Date Activity User E-Sign Co-Sign Detail Recorded Client Recorded Date Recorded By Document 06/14/20 14:42 MABLE [id number] 06/14/20 14:44 DL 06/14/20 14:42 Wound Care Nurse 3 [Wound Dressing] #3- L MEDIAL LE -Ulcer Cleansing Wound Cleanser -Foul Odor after Cleansing No -Primary Dressing Applied Aquacel AG 4x4 -Other Dressing abd -Primary Dressing Covered/Secured Dry Gauze & with Roll Gauze, Secured with Tape -Aquacel AG 4x4 1 [Compression Applied] Left -Tubular Bandage Double Layer -Size of Tubigrip Used Size E -Size E ($) 2 [Post Procedure Tolerated] -Treatment Response Procedure Tolerated Well Pain Scale: 0-10 Numeric [Pain] -Is Patient Pain Free? Yes - Visit Discharge [Visit Discharge Information] -Ambulatory Status Wheelchair -Transportation ECF transport Musculoskeletal: Tenderness Neurological: Cranial nerves II-XII grossly intact Psych/Mental Status: Normal Affect, Appropriate Debridement Note Post-Debridement Measurements/Treatment - Nurse 2 - General Ulcer CM Notes Start: 06/14/20 13:44 Freq: Status: Active Protocol: Activity Type Activity Date Activity User E-Sign Co-Sign Detail Recorded Client Recorded Date Recorded By Document 06/14/20 14:22 CASPER [id number] 06/14/20 14:25 CASPER 06/14/20 14:22 Wound Center Nurse 2 #3- L MEDIAL LE -Time 14:22 -Correct Patient Yes -Correct Side, Site, Position Yes -Correct Procedure Yes -Procedure Performed Yes -Type of Procedure Debridement -Clinical Debridement Subcutaneous -Tissue Removed Subcutaneous -Post Debridement (cm) - Length 9.5 -Post Debridement (cm) - Width 9.5 -Post Debridement (cm) - Depth 0.1 -Total Square (Post) (cm) 90.25 -Area of Debridement (cm) - Length 9.5 -Area of Debridement (cm) - Width 9.5 -Total Square (Area) (cm) 90.25 -Tunneling No -Undermining/Tunneling No -Circular Undermining No -Wound/Ulcer Outcome Not Healed -Ulcer Cleansing Rinsed/ Irrigated with Saline -Foul Odor after Cleansing No -Bioengineered Tissue No -Bleeding Controlled with Pressure -Offloading No -Treatment Response Procedure Tolerated Well -Debridement - Subq, 1st 20sq cm Yes -Debridement, SubQ, ea addt'l 20sq cm 4 or part thereof Pain Scale: 0-10 Numeric Is Patient Pain Free? Yes - Nurse 3 - General Ulcer D/C NN Start: 06/14/20 13:44 Freq: Status: Active Protocol: Activity Type Activity Date Activity User E-Sign Co-Sign Detail Recorded Client Recorded Date Recorded By Document 06/14/20 14:42 DL [id number] 06/14/20 14:44 DL 06/14/20 14:42 Wound Care Nurse 3 #3- L MEDIAL LE -Ulcer Cleansing Wound Cleanser -Foul Odor after Cleansing No -Primary Dressing Applied Aquacel AG 4x4 -Other Dressing abd -Primary Dressing Covered/Secured with Dry Gauze & Roll Gauze, Secured with Tape -Aquacel AG 4x4 1 Left -Tubular Bandage Double Layer -Size of Tubigrip Used Size E -Size E ($) 2 Treatment Response Procedure Tolerated Well Pain Scale: 0-10 Numeric Is Patient Pain Free? Yes - Visit Discharge Ambulatory Status Wheelchair Transportation ECF transport Wound debrided: Medial leg ulcer Laterality: Left Type of Debridement: Excisional debridement Anesthesia Used: 5% Lidocaine Gel Depth: Down to and including healthy tissue, in the subcutaneous layer Percentage of wound debrided: 100 Instrument Used: 7mm curette Tissue Removed: Subcutaneous tissue and slough Severity: Fat Layer Exposed Amount of bleeding with debridement: Mild Bleeding Controlled with: Pressure, Compression and gauze Patient tolerated procedure well Assessment/Plan Assessment: 1. Nonhealing hematoma ulcer left medial leg. 2. shelter use of anticoagulants - Eliquis. 3. Frequent falls. 4. History of MRSA. 5. Diabe xavi mellitus. Plan: Continue Silver dressing changes daily. Elevate left leg when sitting. Continue leg compression. She is a candidate for advanced skin substitute grafts. Will monitor the ulceration over the next 30 days and then apply for it. Prealbumin from 02/14/20 was 6.4. Encourage nutritional supplementation with protein to help the healing process. HgbA1c from 02/11/20 was 5.9. Before considering skin grafting, the HgbA1c needs to be less than 8. Over the next few weeks, will check a wound culture in preparation for the advanced skin substitute grafts. She is not interested in further surgery with skin grafting at this time. A positive culture will necessitate antibiotic therapy. Followup one week. I discussed her case. She is a patient of Dr. Davis and I encourage her to continue with his plan of skin grafting in the near future. To continue with daily aquacel ag and Saline dressing. To use tubigrip compression; this was dispensed. She was previously treated for MRSA infection and she was reassured there is no sign of clinical infection noted. I reviewed and discussed her noninvasive arterial doppler studies on 07/17/16 were normal. To f/u with Dr. Davis in one week or call sooner if problems. [id number]: [id number] Kimberly subq tissue 20 sq cm/<
[2020-06-21 13:53] VITALS: BP 101/52; PULSE 65; RESP 16; TEMP 35.7; BMI 48.9
--- NOTE | 2020-06-21 14:47 | PCM.WC.PN ---
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 History of Wound: Surgery 02/13/20 - Surgical preparation left medial leg with incision and drainage and evacuation traumatic painful infected necrotic hematoma and excisional debridement overlying compromised skin with necrosis (256 cm2). Wound care - Moisten silver dressing changes daily. Operative culture - Proteus mirabilis. She was treated with Keflex and has finished them. Prealbumin from 02/14/20 was 6.4. Encourage nutritional supplementation with protein to help the healing process. HgbA1c from 02/11/20 was 5.9. She would benefit from an advanced wound healing product such as Theraskin to help heal this wound. Will apply to her insurance for approval. A wound culture was obtained today, 06/21/20, to make sure she doesn't have a bacterial infection to help prepare her wound bed for possible advances wound healing product. Today she denies fever. Her appetite is good. Progress of Wound: Improved. - Physical Exam Vital Signs Temp Pulse Resp BP 96.3 F L 65 16 101/52 L 06/21/20 13:53 06/21/20 13:53 06/21/20 13:53 06/21/20 13:53 General: Alert, Oriented x3, Cooperative HEENT: Atraumatic Oral: Moist Mucosa Lungs: Normal air movement Cardiovascular: Regular rate Abdomen: Obese Extremities: Capillary Refill Less than 3 Seconds, Edema Skin: Ulcer/ Wound - Left medial leg ulcer is beefy pink. There is some increased dry slough surrounding the edges that was debrided off today. Wound culture obtained today. Wound Measurements and Assessment - Nurse 1 - General Ulcer Measurement Start: 06/14/20 13:44 Freq: Status: Active Protocol: Activity Type Activity Date Activity User E-Sign Co-Sign Detail Recorded Client Recorded Date Recorded By Document 06/21/20 13:53 [facility] [id number] 06/21/20 14:02 [facility] 06/21/20 13:53 Wound Center Nurse 1 [Ulcer Assessment] #3- L MEDIAL LE -Combined with other wound No -Current Size (cm) - Length 9 -Current Size (cm) - Width 7.5 -Current Size (cm) - Depth 0.1 -Total Square Cm 67.5 -Photo Taken No -Epithelialization None Present -Tunneling No -Undermining/Tunneling No -Circular Undermining No -Exudate Amt Large -Exudate Type Serosanguineous -Wound Margin Distinct, Outline Attached -Granulation Amt Large (67-100%) -Granulation Quality Red -Slough/Fibrin Yes -Necrosis Amt Small (1-33%) -Necrotic Tissue Type Adherent Slough -Texture (Adriana-wound Skin Appearance) Assessed, Scarring -Moisture (Adriana-wound Skin Appearance Assessed,Dry/ ) Scaly -Color (Adriana-wound Skin Appearance) Assessed -Temperature (Adriana-wound Skin No Abnormality Appearance) (Pt Warm) -Tenderness on Palpation (Adriana-wound No Skin Appearance) -Ulcer Cleansing Rinsed/ Irrigated with Saline -Foul Odor after Cleansing No -Anesthetic Used 4% Lidocaine Solution [Edema Assessment] -Lower Limb Edema Present Yes -Left Calf (cm) 47.4 -Left Ankle (cm) 25.6 - Nurse 2 - General Ulcer CM Notes Start: 06/14/20 13:44 Freq: Status: Active Protocol: Activity Type Activity Date Activity User E-Sign Co-Sign Detail Recorded Client Recorded Date Recorded By Document 06/21/20 14:25 [id number] 06/21/20 14:26 06/21/20 14:25 Wound Center Nurse 2 [Procedure/Treatment] #3- L MEDIAL LE -Time 14:25 -Correct Patient Yes -Correct Side, Site, Position Yes -Correct Procedure Yes -Procedure Performed Yes -Type of Procedure Debridement -Clinical Debridement Subcutaneous -Tissue Removed Subcutaneous -Post Debridement (cm) - Length 9 -Post Debridement (cm) - Width 8 -Post Debridement (cm) - Depth 0.1 -Total Square (Post) (cm) 72 -Area of Debridement (cm) - Length 9 -Area of Debridement (cm) - Width 8 -Total Square (Area) (cm) 72 -Tunneling No -Undermining/Tunneling No -Circular Undermining No -Wound/Ulcer Outcome Not Healed -Ulcer Cleansing Rinsed/ Irrigated with Saline -Foul Odor after Cleansing No -Bioengineered Tissue No -Bleeding Controlled with Pressure -Offloading No -Treatment Response Procedure Tolerated Well -Debridement - Subq, 1st 20sq cm Yes -Debridement, SubQ, ea addt'l 20sq cm 3 or part thereof [See Physician Procedure note for Specifics] Pain Scale: 0-10 Numeric [Pain] -Is Patient Pain Free? Yes - Nurse 3 - General Ulcer D/C NN Start: 06/14/20 13:44 Freq: Status: Active Protocol: Activity Type Activity Date Activity User E-Sign Co-Sign Detail Recorded Client Recorded Date Recorded By Document 06/21/20 14:34 [facility] [id number] 06/21/20 14:34 [facility] 06/21/20 14:34 Wound Care Nurse 3 [Wound Dressing] #3- L MEDIAL LE -Ulcer Cleansing Rinsed/ Irrigated with Saline -Foul Odor after Cleansing No -Primary Dressing Applied Aquacel AG 4x4 -Primary Dressing Covered/Secured Dry Gauze & with Roll Gauze, Secured with Tape -Aquacel AG 4x4 1 [Compression Applied] Left -Tubular Bandage Double Layer -Size of Tubigrip Used Size E -Size E ($) 2 [Post Procedure Tolerated] -Treatment Response Procedure Tolerated Well Pain Scale: 0-10 Numeric [Pain] -Is Patient Pain Free? Yes - Visit Discharge [Visit Discharge Information] -Discharge Condition Stable -Ambulatory Status Wheelchair [Facility Notification] -Facility Type [facility] Musculoskeletal: No Tenderness to Palpation of Joints or Extremities Neurological: Cranial nerves II-XII grossly intact Psych/Mental Status: Normal Affect, Appropriate Debridement Note Post-Debridement Measurements/Treatment JEAN - Nurse 2 - General Ulcer CM Notes Start: 06/14/20 13:44 Freq: Status: Active Protocol: Activity Type Activity Date Activity User E-Sign Co-Sign Detail Recorded Client Recorded Date Recorded By Document 06/14/20 14:22 [id number] 06/14/20 14:25 JF Document 06/21/20 14:25 JF [id number] 06/21/20 14:26 06/14/20 06/21/20 14:22 14:25 Wound Center Nurse 2 #3- L MEDIAL LE -Time 14:22 14:25 -Correct Patient Yes Yes -Correct Side, Site, Position Yes Yes -Correct Procedure Yes Yes -Procedure Performed Yes Yes -Type of Procedure Debridement Debridement -Clinical Debridement Subcutaneous Subcutaneous -Tissue Removed Subcutaneous Subcutaneous -Post Debridement (cm) - Length 9.5 9 -Post Debridement (cm) - Width 9.5 8 -Post Debridement (cm) - Depth 0.1 0.1 -Total Square (Post) (cm) 90.25 72 -Area of Debridement (cm) - Length 9.5 9 -Area of Debridement (cm) - Width 9.5 8 -Total Square (Area) (cm) 90.25 72 -Tunneling No No -Undermining/Tunneling No No -Circular Undermining No No -Wound/Ulcer Outcome Not Healed Not Healed -Ulcer Cleansing Rinsed/ Rinsed/ Irrigated with Irrigated with Saline Saline -Foul Odor after Cleansing No No -Bioengineered Tissue No No -Bleeding Controlled with Pressure Pressure -Offloading No No -Treatment Response Procedure Procedure Tolerated Well Tolerated Well -Debridement - Subq, 1st 20sq cm Yes Yes -Debridement, SubQ, ea addt'l 20sq cm 4 3 or part thereof Pain Scale: 0-10 Numeric Is Patient Pain Free? Yes Yes WC - Nurse 3 - General Ulcer D/C NN Start: 06/14/20 13:44 Freq: Status: Active Protocol: Activity Type Activity Date Activity User E-Sign Co-Sign Detail Recorded Client Recorded Date Recorded By Document 06/14/20 14:42 DL [id number] 06/14/20 14:44 DL Document 06/21/20 14:34 [facility] [id number] 06/21/20 14:34 [facility] 06/14/20 06/21/20 14:42 14:34 Wound Care Nurse 3 #3- L MEDIAL LE -Ulcer Cleansing Wound Cleanser Rinsed/ Irrigated with Saline -Foul Odor after Cleansing No No -Primary Dressing Applied Aquacel AG 4x4 Aquacel AG 4x4 -Other Dressing abd -Primary Dressing Covered/Secured with Dry Gauze & Dry Gauze & Roll Gauze, Roll Gauze, Secured with Secured with Tape Tape -Polymer Vision AG 4x4 1 1 Left -Tubular Bandage Double Layer Double Layer -Size of Tubigrip Used Size E Size E -Size E ($) 2 2 Treatment Response Procedure Procedure Tolerated Well Tolerated Well Pain Scale: 0-10 Numeric Is Patient Pain Free? Yes Yes WC - Visit Discharge Discharge Condition Stable Ambulatory Status Wheelchair Wheelchair Transportation ECF transport Facility Type [facility] Wound debrided: medial leg ulcer Laterality: Left Type of Debridement: Excisional debridement Anesthesia Used: 4% Lidocaine Solution, 5% Lidocaine Gel Depth: Down to and including healthy tissue, in the subcutaneous layer Percentage of wound debrided: 100 Instrument Used: 7mm curette Tissue Removed: Subcutaneous tissue and slough Severity: Fat Layer Exposed Amount of bleeding with debridement: Moderate Bleeding Controlled with: Pressure, Compression and gauze Patient tolerated procedure well Assessment/Plan Active Problems (Last Reviewed 06/18/20 @ 11:11 by Kacey Chandler) Morbid obesity with BMI of 50.0-59.9, adult (Chronic) Ulcer of left lower extremity with fat layer exposed (Chronic) Contusion of left lower leg, sequela (Chronic) 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 Nonhealing hematoma ulcer left medial leg. 2. [facility] use of anticoagulants - Eliquis. 3. Frequent falls. 4. History of MRSA. 5. Diabetes mellitus. Plan: Wound care - Continue Moistened Silver dressing changes daily. Tubigrip for compression bilateral lower legs. Elevate left leg when sitting. Continue leg compression. She is a candidate for advanced skin substitute grafts. She would benefit from an advanced wound healing product such as Theraskin to help heal this wound. Will apply to her insurance for approval. A wound culture was obtained today, 06/21/20, to make sure she doesn't have a bacterial infection to help prepare her wound bed for possible advances wound healing product. A positive culture will necessitate antibiotic therapy. Prealbumin from 02/14/20 was 6.4. Encourage nutritional supplementation with protein to help the healing process. HgbA1c from 02/11/20 was 5.9. Before considering skin grafting, the HgbA1c needs to be less than 8. Followup one week. 111xxx-113xx: [id number] Kimberly subq tissue 20 sq cm/< Add On Codes: 84122 Ikmberly subq tissue add-on - x3
--- NOTE | 2020-06-25 11:11 | WC ---
Annika Paula [employer] called in Doxycycline 100mg BID x 21 days Disp: 42 with 1 refill. Spoke to Jody,nurse at [place], on update of new order. She repeated order and verbalized understanding.
[2020-06-28 14:07] VITALS: BP 98/47; PULSE 62; RESP 20; TEMP 37.1; BMI 48.9
--- NOTE | 2020-06-28 15:42 | PCM.WC.PN ---
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 History of Wound: Surgery 02/13/20 - Surgical preparation left medial leg with incision and drainage and evacuation traumatic painful infected necrotic hematoma and excisional debridement overlying compromised skin with necrosis (256 cm2). Wound care - Moisten silver dressing changes daily. Operative culture - Proteus mirabilis. She was treated with Keflex and has finished them. Prealbumin from 02/14/20 was 6.4. Encourage nutritional supplementation with protein to help the healing process. HgbA1c from 02/11/20 was 5.9. She has been approved for Theraskin, we will start it next week. A wound culture from 06/21/20 was positive for MRSA. She is currently taking doxycycline. Today she denies fever. Her appetite is good. Progress of Wound: Improved. - Physical Exam Vital Signs Temp Pulse Resp BP 98.7 F 62 20 H 98/47 L 06/28/20 14:07 06/28/20 14:07 06/28/20 14:07 06/28/20 14:07 General: Alert, Oriented x3, Cooperative HEENT: Atraumatic Oral: Moist Mucosa Lungs: Normal air movement Cardiovascular: Regular rate Abdomen: Obese Extremities: Capillary Refill Less than 3 Seconds, Edema Skin: Ulcer/ Wound - Left medial leg ulcer stable Wound Measurements and Assessment WC - Nurse 1 - General Ulcer Measurement Start: 06/14/20 13:44 Freq: Status: Active Protocol: Activity Type Activity Date Activity User E-Sign Co-Sign Detail Recorded Client Recorded Date Recorded By Document 06/28/20 14:07 DL [id number] 06/28/20 14:10 DL 06/28/20 14:07 Wound Center Nurse 1 [Ulcer Assessment] #3- L MEDIAL LE -Current Size (cm) - Length 9 -Current Size (cm) - Width 7 -Current Size (cm) - Depth 0.1 -Total Square Cm 63 -Photo Taken No -Exudate Amt Medium -Exudate Type Sanguineous -Wound Margin Distinct, Outline Attached -Granulation Amt Large (67-100%) -Granulation Quality Red -Necrosis Amt Small (1-33%) -Necrotic Tissue Type Adherent Slough -Structure Exposed N/A -Texture (Adriana-wound Skin Appearance) Localized Edema ,Scarring -Moisture (Adriana-wound Skin Appearance No Abnormality ) -Color (Adriana-wound Skin Appearance) Hemosiderin Staining -Temperature (Adriana-wound Skin No Abnormality Appearance) (Pt Warm) -Tenderness on Palpation (Adriana-wound No Skin Appearance) -Ulcer Cleansing Wound Cleanser -Foul Odor after Cleansing No -Anesthetic Used 4% Lidocaine Solution [Edema Assessment] -Left Calf (cm) 39.5 -Left Ankle (cm) 30 WC - Nurse 2 - General Ulcer CM Notes Start: 06/14/20 13:44 Freq: Status: Active Protocol: Activity Type Activity Date Activity User E-Sign Co-Sign Detail Recorded Client Recorded Date Recorded By Document 06/28/20 14:52 [id number] 06/28/20 14:58 06/28/20 14:52 Wound Center Nurse 2 [Procedure/Treatment] #3- L [facility] LE -Time 14:52 -Correct Patient Yes -Correct Side, Site, Position Yes -Correct Procedure Yes -Procedure Performed Yes -Type of Procedure Debridement -Clinical Debridement Subcutaneous -Tissue Removed Subcutaneous -Post Debridement (cm) - Length 10.0 -Post Debridement (cm) - Width 9.5 -Post Debridement (cm) - Depth 0.1 -Total Square (Post) (cm) 95.00 -Area of Debridement (cm) - Length 10 -Area of Debridement (cm) - Width 9.5 -Total Square (Area) (cm) 95.0 -Tunneling No -Undermining/Tunneling No -Circular Undermining No -Wound/Ulcer Outcome Not Healed -Ulcer Cleansing Rinsed/ Irrigated with Saline -Foul Odor after Cleansing No -Bioengineered Tissue No -Bleeding Controlled with Pressure -Offloading No -Treatment Response Procedure Tolerated Well -Debridement - Subq, 1st 20sq cm Yes -Debridement, SubQ, ea addt'l 20sq cm 4 or part thereof [See Physician Procedure note for Specifics] Pain Scale: 0-10 Numeric [Pain] -Is Patient Pain Free? Yes - Nurse 3 - General Ulcer D/C NN Start: 06/14/20 13:44 Freq: Status: Active Protocol: Activity Type Activity Date Activity User E-Sign Co-Sign Detail Recorded Client Recorded Date Recorded By Document 06/28/20 15:07 [facility] [id number] 06/28/20 15:08 [facility] 06/28/20 15:07 Wound Care Nurse 3 [Wound Dressing] #3- L MEDIAL LE -Ulcer Cleansing Rinsed/ Irrigated with Saline -Foul Odor after Cleansing No -Primary Dressing Applied Aquacel AG 4x4 -Primary Dressing Covered/Secured Dry Gauze & with Roll Gauze, Secured with Tape,Other -Other Covering abd, drsg per d dee supervisor public health nursing -Aquacel AG 4x4 1 [Compression Applied] Left -Tubular Bandage Double Layer -Size of Tubigrip Used Size E -Size E ($) 1 [Post Procedure Tolerated] -Treatment Response Procedure Tolerated Well Pain Scale: 0-10 Numeric [Pain] -Is Patient Pain Free? Yes - Visit Discharge [Visit Discharge Information] -Discharge Condition Stable -Ambulatory Status Wheelchair [Facility Notification] -Facility Type [facility] Care Facility Musculoskeletal: No Tenderness to Palpation of Joints or Extremities Lymphatic: No Cervical, Supraclavicular, or Inguinal Adenopathy Neurological: Cranial nerves II-XII grossly intact Psych/Mental Status: Normal Affect, Appropriate Debridement Note Post-Debridement Measurements/Treatment - Nurse 2 - General Ulcer CM Notes Start: 06/14/20 13:44 Freq: Status: Active Protocol: Activity Type Activity Date Activity User E-Sign Co-Sign Detail Recorded Client Recorded Date Recorded By Document 06/14/20 14:22 [id number] 06/14/20 14:25 Document 06/21/20 14:25 [id number] 06/21/20 14:26 Document 06/28/20 14:52 [id number] 06/28/20 14:58 JF 06/14/20 06/21/20 06/28/20 14:22 14:25 14:52 Wound Center Nurse 2 #3- L MEDIAL LE -Time 14: 14:25 14:52 -Correct Patient Yes Yes Yes -Correct Side, Site, Position Yes Yes Yes -Correct Procedure Yes Yes Yes -Procedure Performed Yes Yes Yes -Type of Procedure Debridement Debridement Debridement -Clinical Debridement Subcutaneous Subcutaneous Subcutaneous -Tissue Removed Subcutaneous Subcutaneous Subcutaneous -Post Debridement (cm) - Length 9.5 9 10.0 -Post Debridement (cm) - Width 9.5 8 9.5 -Post Debridement (cm) - Depth 0.1 0.1 0.1 -Total Square (Post) (cm) 90.25 72 95.00 -Area of Debridement (cm) - Length 9.5 9 10 -Area of Debridement (cm) - Width 9.5 8 9.5 -Total Square (Area) (cm) 90.25 72 95.0 -Tunneling No No No -Undermining/Tunneling No No No -Circular Undermining No No No -Wound/Ulcer Outcome Not Healed Not Healed Not Healed -Ulcer Cleansing Rinsed/ Rinsed/ Rinsed/ Irrigated with Irrigated with Irrigated with Saline Saline Saline -Foul Odor after Cleansing No No No -Bioengineered Tissue No No No -Bleeding Controlled with Pressure Pressure Pressure -Offloading No No No -Treatment Response Procedure Procedure Procedure Tolerated Well Tolerated Well Tolerated Well -Debridement - Subq, 1st 20sq cm Yes Yes Yes -Debridement, SubQ, ea addt'l 20sq cm 4 3 4 or part thereof Pain Scale: 0-10 Numeric Is Patient Pain Free? Yes Yes Yes WC - Nurse 3 - General Ulcer D/C NN Start: 06/14/20 13:44 Freq: Status: Active Protocol: Activity Type Activity Date Activity User E-Sign Co-Sign Detail Recorded Client Recorded Date Recorded By Document 06/14/20 14:42 DL [id number] 06/14/20 14:44 DL Document 06/21/20 14:34 [facility] [id number] 06/21/20 14:34 BM Document 06/28/20 15:07 [facility] [id number] 06/28/20 15:08 BMF 06/14/20 06/21/20 06/28/20 14:42 14:34 15:07 Wound Care Nurse 3 #3- L MEDIAL LE -Ulcer Cleansing Wound Cleanser Rinsed/ Rinsed/ Irrigated with Irrigated with Saline Saline -Foul Odor after Cleansing No No No -Primary Dressing Applied Aquacel AG 4x4 Aquacel AG 4x4 Aquacel AG 4x4 -Other Dressing abd -Primary Dressing Covered/Secured with Dry Gauze & Dry Gauze & Dry Gauze & Roll Gauze, Roll Gauze, Roll Gauze, Secured with Secured with Secured with Tape Tape Tape,Other -Other Covering abd, drsg per d dee supervisor public health nursing -Aquacel AG 4x4 1 1 1 Left -Tubular Bandage Double Layer Double Layer Double Layer -Size of Tubigrip Used Size E Size E Size E -Size E ($) 2 2 1 Treatment Response Procedure Procedure Procedure Tolerated Well Tolerated Well Tolerated Well Pain Scale: 0-10 Numeric Is Patient Pain Free? Yes Yes Yes WC - Visit Discharge Discharge Condition Stable Stable Ambulatory Status Wheelchair Wheelchair Wheelchair Transportation ECF transport Facility Type Director Index Care Director Index Care Facility Facility Wound debrided: Medial leg ulcer Laterality: Left Type of Debridement: Excisional debridement Anesthesia Used: 4% Lidocaine Solution, 5% Lidocaine Gel Depth: Down to and including healthy tissue, in the subcutaneous layer Percentage of wound debrided: 100 Instrument Used: 7mm curette Tissue Removed: Subcutaneous tissue and slough Severity: Fat Layer Exposed Amount of bleeding with debridement: Moderate Bleeding Controlled with: Pressure, Compression and gauze, Silver Nitrate Patient tolerated procedure well Assessment/Plan Active Problems (Last Reviewed 06/18/20 @ 11:11 by Kacey Chandler) Morbid obesity with BMI of 50.0-59.9, adult (Chronic) Ulcer of left lower extremity with fat layer exposed (Chronic) Contusion of left lower leg, sequela (Chronic) 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 Nonhealing hematoma ulcer left medial leg. 2. [facility] use of anticoagulants - Eliquis. 3. Frequent falls. 4. History of MRSA. 5. Diabetes mellitus. Plan: Wound care - Continue Moistened Silver dressing changes daily. Tubigrip for compression bilateral lower legs. Elevate left leg when sitting. Continue leg compression. She has been approved for TherHexaTechin. We will start this next week. A wound culture from 06/21/20 was positive for MRSA. She is currently taking doxycycline. Prealbumin from 02/14/20 was 6.4. Encourage nutritional supplementation with protein to help the healing process. HgbA1c from 02/11/20 was 5.9. Before considering skin grafting, the HgbA1c needs to be less than 8. Followup one week. 111xxx-113xx: [id number] Kimberly subq tissue 20 sq cm/<
[2020-07-05 14:09] VITALS: BP 103/41; PULSE 56; RESP 18; TEMP 36.4; BMI 48.9
--- NOTE | 2020-07-05 15:26 | PN.PCM_ITS ---
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 History of Wound: Surgery 02/13/20 - Surgical preparation left medial leg with incision and drainage and evacuation traumatic painful infected necrotic hematoma and excisional debridement overlying compromised skin with necrosis (256 cm2). Wound care -TheraSkin #1 applied today, covered with Adaptic touch. Topped with dry gauze dressing. Operative culture - Proteus mirabilis. She was treated with Keflex and has finished them. Prealbumin from 02/14/20 was 6.4. Encourage nutritional supplementation with protein to help the healing process. HgbA1c from 02/11/20 was 5.9. She has been approved for Theraskin, we will start it next week. A wound culture from 06/21/20 was positive for MRSA. She is currently taking doxycycline. Today she denies fever. Her appetite is good. Progress of Wound: Improved. - Physical Exam Vital Signs Temp Pulse Resp BP 97.5 F L 56 L 18 103/41 L 07/05/20 14:09 07/05/20 14:09 07/05/20 14:09 07/05/20 14:09 General: Alert, Oriented x3, Cooperative HEENT: Atraumatic Oral: Moist Mucosa Lungs: Normal air movement Cardiovascular: Regular rate Abdomen: Obese Extremities: Capillary Refill Less than 3 Seconds, Edema Skin: Ulcer/ Wound - Left medial leg ulcer is beefy pink. Wound Measurements and Assessment WC - Nurse 1 - General Ulcer Measurement Start: 06/14/20 13:44 Freq: Status: Active Protocol: Activity Type Activity Date Activity User E-Sign Co-Sign Detail Recorded Client Recorded Date Recorded By Document 07/05/20 14:09 CASPER [id number] 07/05/20 14:12 07/05/20 14:09 Wound Center Nurse 1 [Ulcer Assessment] #3- L MEDIAL LE -Combined with other wound No -Current Size (cm) - Length 8.3 -Current Size (cm) - Width 11 -Current Size (cm) - Depth 0.2 -Total Square Cm 91.3 -Photo Taken No -Epithelialization Small 1-33% -Tunneling No -Undermining/Tunneling No -Circular Undermining No -Exudate Amt Medium -Exudate Type Serosanguineous -Wound Margin Flat & Intact -Granulation Amt Medium (34-66%) -Granulation Quality Red -Slough/Fibrin Yes -Necrosis Amt Medium (34-66%) -Necrotic Tissue Type Adherent Slough -Structure Exposed N/A -Texture (Adriana-wound Skin Appearance) Assessed, Localized Edema -Moisture (Adriana-wound Skin Appearance Assessed,Dry/ ) Scaly -Color (Adriana-wound Skin Appearance) Assessed -Temperature (Adriana-wound Skin No Abnormality Appearance) (Pt Warm) -Tenderness on Palpation (Adriana-wound No Skin Appearance) -Ulcer Cleansing Wound Cleanser -Foul Odor after Cleansing No -Anesthetic Used 4% Lidocaine Solution [Edema Assessment] -Lower Limb Edema Present Yes -Left Calf (cm) 37 -Left Ankle (cm) 26.6 WC - Nurse 2 - General Ulcer CM Notes Start: 06/14/20 13:44 Freq: Status: Active Protocol: Activity Type Activity Date Activity User E-Sign Co-Sign Detail Recorded Client Recorded Date Recorded By Document 07/05/20 14:18 CASPER [id number] 07/05/20 14:27 07/05/20 14:18 Wound Center Nurse 2 [Procedure/Treatment] #3- L MEDIAL LE -Time 14:24 -Correct Patient Yes -Correct Side, Site, Position Yes -Correct Procedure Yes -Procedure Performed Yes -Type of Procedure Debridement -Clinical Debridement Subcutaneous -Tissue Removed Subcutaneous -Post Debridement (cm) - Length 10.8 -Post Debridement (cm) - Width 6.8 -Post Debridement (cm) - Depth 0.1 -Total Square (Post) (cm) 73.44 -Area of Debridement (cm) - Length 10.8 -Area of Debridement (cm) - Width 6.8 -Total Square (Area) (cm) 73.44 -Tunneling No -Undermining/Tunneling No -Circular Undermining No -Wound/Ulcer Outcome Not Healed -Ulcer Cleansing Rinsed/ Irrigated with Saline -Foul Odor after Cleansing No -Bioengineered Tissue Yes -Type of Bioengineered Tissue Theraskin -Expiration Date 12/24/24 -Product Lot Number [id number] -Percent Used 100 -Lot number of Saline Used [id number] -Bleeding Controlled with Pressure -Offloading No -Treatment Response Procedure Tolerated Well -Debridement - Subq, 1st 20sq cm No -Apply Skin Sub - 1st 25 sq cm - Legs 1 -Apply Skin Sub - each addt'l 25 sq 2 cm - Legs -Theraskin (per sq cm) 39 [See Physician Procedure note for Specifics] Pain Scale: 0-10 Numeric [Pain] -Is Patient Pain Free? Yes - Nurse 3 - General Ulcer D/C NN Start: 06/14/20 13:44 Freq: Status: Active Protocol: Activity Type Activity Date Activity User E-Sign Co-Sign Detail Recorded Client Recorded Date Recorded By Document 07/05/20 14:45 DL [id number] 07/05/20 14:45 DL 07/05/20 14:45 Wound Care Nurse 3 [Wound Dressing] #3- L MEDIAL LE -Foul Odor after Cleansing No -Other Dressing ABD -Primary Dressing Covered/Secured Dry Gauze & with Roll Gauze, Secured with Tape [Compression Applied] Left -Other Tubigrip [Post Procedure Tolerated] -Treatment Response Procedure Tolerated Well Pain Scale: 0-10 Numeric [Pain] -Is Patient Pain Free? Yes - Visit Discharge [Visit Discharge Information] -Discharge Condition Stable -Ambulatory Status Wheelchair Musculoskeletal: Tenderness Neurological: Cranial nerves II-XII grossly intact Psych/Mental Status: Normal Affect, Appropriate Debridement Note Post-Debridement Measurements/Treatment - Nurse 2 - General Ulcer CM Notes Start: 06/14/20 13:44 Freq: Status: Active Protocol: Activity Type Activity Date Activity User E-Sign Co-Sign Detail Recorded Client Recorded Date Recorded By Document 06/14/20 14:22 CASPER [id number] 06/14/20 14:25 Document 06/21/20 14:25 [id number] 06/21/20 14:26 Document 06/28/20 14:52 [id number] 06/28/20 14:58 Document 07/05/20 14:18 [id number] 07/05/20 14:27 06/14/20 06/21/20 06/28/20 14:22 14:25 14:52 Wound Center Nurse 2 #3- L MEDIAL LE -Time 14:22 14:25 14:52 -Correct Patient Yes Yes Yes -Correct Side, Site, Position Yes Yes Yes -Correct Procedure Yes Yes Yes -Procedure Performed Yes Yes Yes -Type of Procedure Debridement Debridement Debridement -Clinical Debridement Subcutaneous Subcutaneous Subcutaneous -Tissue Removed Subcutaneous Subcutaneous Subcutaneous -Post Debridement (cm) - Length 9.5 9 10.0 -Post Debridement (cm) - Width 9.5 8 9.5 -Post Debridement (cm) - Depth 0.1 0.1 0.1 -Total Square (Post) (cm) 90.25 72 95.00 -Area of Debridement (cm) - Length 9.5 9 10 -Area of Debridement (cm) - Width 9.5 8 9.5 -Total Square (Area) (cm) 90.25 72 95.0 -Tunneling No No No -Undermining/Tunneling No No No -Circular Undermining No No No -Wound/Ulcer Outcome Not Healed Not Healed Not Healed -Ulcer Cleansing Rinsed/ Rinsed/ Rinsed/ Irrigated with Irrigated with Irrigated with Saline Saline Saline -Foul Odor after Cleansing No No No -Bioengineered Tissue No No No -Type of Bioengineered Tissue -Expiration Date -Product Lot Number -Percent Used -Lot number of Saline Used -Bleeding Controlled with Pressure Pressure Pressure -Offloading No No No -Treatment Response Procedure Procedure Procedure Tolerated Well Tolerated Well Tolerated Well -Debridement - Subq, 1st 20sq cm Yes Yes Yes -Debridement, SubQ, ea addt'l 20sq cm 4 3 4 or part thereof -Apply Skin Sub - 1st 25 sq cm - Legs -Apply Skin Sub - each addt'l 25 sq cm - Legs -Theraskin (per sq cm) Pain Scale: 0-10 Numeric Is Patient Pain Free? Yes Yes Yes 07/05/20 14:18 Wound Center Nurse 2 #3- L MEDIAL LE -Time 14:24 -Correct Patient Yes -Correct Side, Site, Position Yes -Correct Procedure Yes -Procedure Performed Yes -Type of Procedure Debridement -Clinical Debridement Subcutaneous -Tissue Removed Subcutaneous -Post Debridement (cm) - Length 10.8 -Post Debridement (cm) - Width 6.8 -Post Debridement (cm) - Depth 0.1 -Total Square (Post) (cm) 73.44 -Area of Debridement (cm) - Length 10.8 -Area of Debridement (cm) - Width 6.8 -Total Square (Area) (cm) 73.44 -Tunneling No -Undermining/Tunneling No -Circular Undermining No -Wound/Ulcer Outcome Not Healed -Ulcer Cleansing Rinsed/ Irrigated with Saline -Foul Odor after Cleansing No -Bioengineered Tissue Yes -Type of Bioengineered Tissue Theraskin -Expiration Date 12/24/24 -Product Lot Number [id number] -Percent Used 100 -Lot number of Saline Used [id number] -Bleeding Controlled with Pressure -Offloading No -Treatment Response Procedure Tolerated Well -Debridement - Subq, 1st 20sq cm No -Debridement, SubQ, ea addt'l 20sq cm or part thereof -Apply Skin Sub - 1st 25 sq cm - Legs 1 -Apply Skin Sub - each addt'l 25 sq cm 2 - Legs -Theraskin (per sq cm) 39 Pain Scale: 0-10 Numeric Is Patient Pain Free? Yes WC - Nurse 3 - General Ulcer D/C NN Start: 06/14/20 13:44 Freq: Status: Active Protocol: Activity Type Activity Date Activity User E-Sign Co-Sign Detail Recorded Client Recorded Date Recorded By Document 06/14/20 14:42 DL [id number] 06/14/20 14:44 DL Document 06/21/20 14:34 [facility] [id number] 06/21/20 14:34 BM Document 06/28/20 15:07 [facility] [id number] 06/28/20 15:08 BMF Document 07/05/20 14:45 DL [id number] 07/05/20 14:45 DL 06/14/20 06/21/20 06/28/20 14:42 14:34 15:07 Wound Care Nurse 3 #3- L MEDIAL LE -Ulcer Cleansing Wound Cleanser Rinsed/ Rinsed/ Irrigated with Irrigated with Saline Saline -Foul Odor after Cleansing No No No -Primary Dressing Applied Aquacel AG 4x4 Aquacel AG 4x4 Aquacel AG 4x4 -Other Dressing abd -Primary Dressing Covered/Secured with Dry Gauze & Dry Gauze & Dry Gauze & Roll Gauze, Roll Gauze, Roll Gauze, Secured with Secured with Secured with Tape Tape Tape,Other -Other Covering abd, drsg per d dee director of volunteer services -Aquacel AG 4x4 1 1 1 Left -Tubular Bandage Double Layer Double Layer Double Layer -Size of Tubigrip Used Size E Size E Size E -Size E ($) 2 2 1 -Other Treatment Response Procedure Procedure Procedure Tolerated Well Tolerated Well Tolerated Well Pain Scale: 0-10 Numeric Is Patient Pain Free? Yes Yes Yes WC - Visit Discharge Discharge Condition Stable Stable Ambulatory Status Wheelchair Wheelchair Wheelchair Transportation F transport Facility Type Alf Care Alf Care Facility Facility 07/05/20 14:45 Wound Care Nurse 3 #3- L MEDIAL LE -Ulcer Cleansing -Foul Odor after Cleansing No -Primary Dressing Applied -Other Dressing ABD -Primary Dressing Covered/Secured with Dry Gauze & Roll Gauze, Secured with Tape -Other Covering -Aquacel AG 4x4 Left -Tubular Bandage -Size of Tubigrip Used -Size E ($) -Other Tubigrip Treatment Response Procedure Tolerated Well Pain Scale: 0-10 Numeric Is Patient Pain Free? Yes WC - Visit Discharge Discharge Condition Stable Ambulatory Status Wheelchair Transportation Facility Type Wound debrided: Medial leg ulcer Laterality: Left Type of Debridement: Excisional debridement Anesthesia Used: 5% Lidocaine Gel Depth: Down to and including healthy tissue, in the subcutaneous layer Percentage of wound debrided: 100 Instrument Used: 7mm curette Tissue Removed: Subcutaneous tissue and slough Severity: Fat Layer Exposed Amount of bleeding with debridement: Mild Bleeding Controlled with: Pressure, Compression and gauze Patient tolerated procedure well Assessment/Plan Active Problems (Last Reviewed 06/18/20 @ 11:11 by Kacey Chandler) Morbid obesity with BMI of 50.0-59.9, adult (Chronic) Ulcer of left lower extremity with fat layer exposed (Chronic) Contusion of left lower leg, sequela (Chronic) 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 Nonhealing hematoma ulcer left medial leg. 2. group home use of anticoagulants - Eliquis. 3. Frequent falls. 4. History of MRSA. 5. Diabetes mellitus. Plan: Wound care - Theraskin advanced skin product placed today. 39 cm2. Product Lot Number [id number]. 100% of product used. Secured with dermabond and steri strips and topped with adaptic touch and steri strips and covered with dry gauze. Tubigrip for compression bilateral lower legs. Elevate left leg when sitting. Continue leg compression. She is planning on going home on Sunday. A wound culture from 06/21/20 was positive for MRSA. She is currently taking doxycycline. Prealbumin from 02/14/20 was 6.4. Encourage nutritional supplementation with protein to help the healing process. HgbA1c from 02/11/20 was 5.9. Before considering skin grafting, the HgbA1c needs to be less than 8. Followup two weeks. 150xxx-152xx: [id number] Skin sub graft trnk/arm/leg Add On Codes: 94052 Skin sub graft t/a/l add-on - x2
== END 2020-07-07 23:59 ==
LOC: WC 13:45
PROVIDERS: PCP Family Medicine Geriatric Medicine; Referring Provider Surgery; Visit Provider Surgery
DX: E11.622 Type 2 diabetes mellitus with other skin ulcer (principal); L97.822 Non-pressure chronic ulcer of other part of left lower leg with fat layer exposed; R29.6 Repeated falls; Z86.14 Personal history of Methicillin resistant Staphylococcus aureus infection; E66.01 Morbid (severe) obesity due to excess calories; Z68.43 Body mass index [BMI] 50.0-59.9, adult; S80.12XS Contusion of left lower leg, sequela; X58.XXXS Exposure to other specified factors, sequela
CPT/HCPCS: 11042; 11045; 15271; 15272; 87070; 87075; 87077; 87186; 87205; Q4121

== ENCOUNTER → 2020-10-28 13:44 | Outpatient (CLI) | payer MEDICARE, MEDICAID, SELFPAY ==
[2020-10-28 17:24] LABS: Absolute Lymphocyte Count 1.02 X10^3/uL (0.83-4.51); Absolute Neutrophil Count 3.3 X10^3/uL (2.0-7.7); Basophil# 0.05 X10^3/uL; Eosinophils% 2.1 % (0-5); Hematocrit 39.5 % (37-47); Hemoglobin 11.5 g/dL (12.0-15.0); Lymphocyte # 1.02 X10^3/ul (0.83-4.51); Lymphocyte % 20.9 % (19-41); Mean Corp Hgb Conc 29.1 g/dL (32-36); Mean Corpuscular Volume 89.4 fL (81-99); Mean Platelet Vol. 12.9 fl (6.2-12.0); Monocyte# 0.36 X10^3/uL; Monocyte% 7.4 % (0-10); NRBC Flagged by Analyzer 0 % (0-5); Neutrophil # 3.33 X10^3/uL (2.7-7.7); Neutrophil % 68.4 % (47-70); Platelet Count 227 K/mm3 (150-450); RBC Distribution Width CV 15.9 % (11.6-14.6); RBC Distribution Width SD 52.3 fl (35.1-43.9); Red Blood Count 4.42 M/mm3 (4.2-5.4); White Blood Count 4.9 K/mm3 (4.4-11.0)
[2020-10-28 20:01] LABS: ALB/GLOB Ratio 0.9 RATIO (0.9-2.4); AST(SGOT) 21 U/L (15-37); Alanine Aminotransfer ALT/SGPT 21 U/L (13-56); Albumin, Serum 3.4 g/dL (3.2-5.0); Alkaline Phosphatase 85 U/L (45-117); Anion Gap 11 (5-15); BUN 15 mg/dL (7-18); BUN/Creat Ratio 15.8 RATIO (10-20); Calcium,Total 9.2 mg/dL (8.5-10.1); Chloride 99 mmol/L (98-107); Creatinine, Serum 0.95 mg/dL (0.55-1.02); EST Glomerular Filtration Rate 65 mL/min (>60); Est Glom Filt Rate - Afr Amer 78 mL/min (>60); Globulin 3.8 g/dL (2.2-4.2); Glucose 140 mg/dL (74-106); Potassium 3.1 mmol/L (3.5-5.1); Protein, Total 7.2 g/dL (6.4-8.2); Sodium Level 140 mmol/L (136-145); Thyroid Stim Hormone (TSH) 4.42 uIU/mL (0.358-3.74)
[2020-10-28 21:24] LABS: Vitamin D,25 Hydroxy 19.8 ng/mL
== END ==
PROVIDERS: PCP Family Medicine Geriatric Medicine; Visit Provider Family Medicine Geriatric Medicine
DX: E55.9 Vitamin D deficiency, unspecified (principal); R53.83 Other fatigue
CPT/HCPCS: 36415; 80053; 82306; 84443; 85025

== ENCOUNTER → 2021-01-06 13:58 | Outpatient (CLI) | payer MEDICARE, MEDICAID, SELFPAY ==
--- NOTE | 2021-01-06 14:13 | RAD_ITS ---
STUDY: X-RAY - RIGHT ANKLE REASON FOR EXAM: Female, 55 years old. Right ankle pain for one week. No known injury. TECHNIQUE: 3 view(s) of the ankle. COMPARISON: None. FINDINGS: Without generalized osteopenia. Normal visualized distal tibia and fibula. Normal medial and lateral malleoli. Normal tibiotalar articulation and ankle mortise. Normal visualized talus. There is a small plantar spur along the underside. Otherwise normal calcaneus. Mild arthrosis of visualized subtalar, talonavicular, calcaneocuboid and tarsal articulations. Diffuse generalized soft tissue swelling about the lower leg and ankle extending into the hindfoot. This is most marked medially. RAD/Ankle min 3 Views IMPRESSION: 1. Diffuse soft tissue swelling of the lower leg and ankle without visualized fracture or dislocation. Electronically Signed: Edwin French DO at 17:00 EDT Tel [phone], Service support ,
== END ==
PROVIDERS: PCP Family Medicine Geriatric Medicine; Referring Provider Family Medicine Geriatric Medicine; Visit Provider Family Medicine Geriatric Medicine
DX: M25.571 Pain in right ankle and joints of right foot (principal)
CPT/HCPCS: 73610

== ENCOUNTER 2021-05-16 12:55 | Outpatient (CLI) | payer MEDICARE, MEDICAID, SELFPAY ==
[2021-05-16 15:42] LABS: Absolute Lymphocyte Count 1.37 X10^3/uL (0.83-4.51); Absolute Neutrophil Count 3.1 X10^3/uL (2.0-7.7); Basophil# 0.04 X10^3/uL; Basophil% 0.8 % (0-1); Eosinophil# 0.11 X10^3/uL; Eosinophils% 2.2 % (0-5); Hematocrit 31.1 % (37-47); Hemoglobin 8.4 g/dL (12.0-15.0); Lymphocyte # 1.37 X10^3/ul (0.83-4.51); Lymphocyte % 27.5 % (19-41); Mean Corpuscular Hgb 23.3 pg (27.0-32.0); Mean Corpuscular Volume 86.4 fL (81-99); Mean Platelet Vol. 12.3 fl (6.2-12.0); Monocyte# 0.39 X10^3/uL; Monocyte% 7.8 % (0-10); NRBC Flagged by Analyzer 0 % (0-5); Neutrophil # 3.06 X10^3/uL (2.7-7.7); Neutrophil % 61.5 % (47-70); Platelet Count 180 K/mm3 (150-450); RBC Distribution Width CV 16.6 % (11.6-14.6)
[2021-05-16 16:13] LABS: ALB/GLOB Ratio 0.8 RATIO (0.9-2.4); AST(SGOT) 32 U/L (15-37); Alanine Aminotransfer ALT/SGPT 22 U/L (13-56); Albumin, Serum 3.4 g/dL (3.2-5.0); Alkaline Phosphatase 154 U/L (45-117); Anion Gap 6 (5-15); BUN 26 mg/dL (7-18); Calcium,Total 9.1 mg/dL (8.5-10.1); Chloride 98 mmol/L (98-107); Creatinine, Serum 0.93 mg/dL (0.55-1.02); EST Glomerular Filtration Rate 66 mL/min (>60); Est Glom Filt Rate - Afr Amer 80 mL/min (>60); Globulin 4.1 g/dL (2.2-4.2); Glucose 130 mg/dL (74-106); Potassium 3.4 mmol/L (3.5-5.1); Protein, Total 7.5 g/dL (6.4-8.2); Sodium Level 140 mmol/L (136-145); Thyroid Stim Hormone (TSH) 6.81 uIU/mL (0.358-3.74)
== END 2021-05-16 23:59 | disposition home or self-care (01) ==
LOC: POLAB3 12:59
PROVIDERS: PCP Family Medicine Geriatric Medicine; Visit Provider Family Medicine Geriatric Medicine
DX: I10 Essential (primary) hypertension (principal)
CPT/HCPCS: 36415; 80053; 84443; 85025

== ENCOUNTER 2021-06-02 14:30 | Outpatient (CLI) | payer MEDICARE, MEDICAID, SELFPAY ==
[2021-06-02 15:38] LABS: RET-HE 21.4 pg (30-35); Reticulocyte Count 1.62 % (0.5-1.5)
[2021-06-02 15:53] LABS: Vitamin B12 > 2000 pg/mL (211-911)
[2021-06-02 16:35] LABS: Ferritin 22 ng/mL (8-252); Iron 22 ug/dL (50-170); Iron Binding Capacity,Total 285 ug/dL (250-450); PERCENT IRON SATURATION 7.7 % (15.0-55.0)
[2021-06-03 08:59] LABS: Absolute Lymphocyte Count 0.77 X10^3/uL (0.83-4.51); Absolute Neutrophil Count 2.6 X10^3/uL (2.0-7.7); Basophil# 0.03 X10^3/uL; Basophil% 0.8 % (0-1); Eosinophils% 2.5 % (0-5); Hematocrit 30.6 % (37-47); Hemoglobin 8.7 g/dL (12.0-15.0); Immature Platelet Fraction 14.1 % (1.0-7.9); Lymphocyte # 0.77 X10^3/ul (0.83-4.51); Lymphocyte % 19.3 % (19-41); Mean Corp Hgb Conc 28.4 g/dL (32-36); Mean Corpuscular Hgb 23.6 pg (27.0-32.0); Mean Corpuscular Volume 83.2 fL (81-99); Mean Platelet Vol. 13.2 fl (6.2-12.0); Monocyte# 0.46 X10^3/uL; Monocyte% 11.6 % (0-10); NRBC Flagged by Analyzer 0 % (0-5); Neutrophil % 65.3 % (47-70); Platelet Count 163 K/mm3 (150-450); RBC Distribution Width SD 51.2 fl (35.1-43.9); Red Blood Count 3.68 M/mm3 (4.2-5.4)
== END 2021-06-02 23:59 | disposition home or self-care (01) ==
LOC: POLAB3 14:33
PROVIDERS: PCP Family Medicine Geriatric Medicine; Visit Provider Family Medicine Geriatric Medicine
DX: D64.9 Anemia, unspecified (principal)
CPT/HCPCS: 36415; 82607; 82728; 82746; 83540; 83550; 85025; 85045; 86900; 86901

== ENCOUNTER 2021-06-28 11:33 | Outpatient (CLI) | payer MEDICARE, MEDICAID, SELFPAY ==
[2021-06-28 12:15] LABS: Absolute Lymphocyte Count 0.66 X10^3/uL (0.83-4.51); Absolute Neutrophil Count 1.5 X10^3/uL (2.0-7.7); Basophil# 0.03 X10^3/uL; Basophil% 1.2 % (0-1); Eosinophil# 0.06 X10^3/uL; Eosinophils% 2.3 % (0-5); Hematocrit 30.3 % (37-47); Hemoglobin 8.6 g/dL (12.0-15.0); Lymphocyte # 0.66 X10^3/ul (0.83-4.51); Lymphocyte % 25.6 % (19-41); Mean Corp Hgb Conc 28.4 g/dL (32-36); Mean Corpuscular Hgb 23.4 pg (27.0-32.0); Mean Corpuscular Volume 82.6 fL (81-99); Mean Platelet Vol. 11.5 fl (6.2-12.0); Monocyte# 0.34 X10^3/uL; Monocyte% 13.2 % (0-10); NRBC Flagged by Analyzer 0 % (0-5); Neutrophil # 1.48 X10^3/uL (2.7-7.7); Neutrophil % 57.3 % (47-70); Platelet Count 136 K/mm3 (150-450); RBC Distribution Width CV 19.7 % (11.6-14.6); RBC Distribution Width SD 58.2 fl (35.1-43.9); Red Blood Count 3.67 M/mm3 (4.2-5.4); White Blood Count 2.6 K/mm3 (4.4-11.0)
[2021-06-28 12:34] LABS: BUN 8 mg/dL (7-18); BUN/Creat Ratio 10.8 RATIO (10-20); Calcium,Total 9.1 mg/dL (8.5-10.1); Carbon Dioxide > 45.0 mmol/L (21.0-32.0); Chloride 90 mmol/L (98-107); Creatinine, Serum 0.74 mg/dL (0.55-1.02); EST Glomerular Filtration Rate 86 mL/min (>60); Est Glom Filt Rate - Afr Amer 104 mL/min (>60); Glucose 95 mg/dL (74-106); Potassium 2.9 mmol/L (3.5-5.1); Sodium Level 140 mmol/L (136-145)
== END 2021-06-28 23:59 | disposition home or self-care (01) ==
LOC: POLAB3 11:34
PROVIDERS: PCP Family Medicine Geriatric Medicine; Visit Provider Family Medicine Geriatric Medicine
DX: D50.9 Iron deficiency anemia, unspecified (principal); R11.0 Nausea
CPT/HCPCS: 36415; 80048; 85025

== ENCOUNTER 2021-10-07 06:35 | Day surgery (SDC) | payer MEDICARE, MEDICAID, SELFPAY ==
[2021-10-07] VITALS (7 sets, daily range): BP systolic 93–109; BP diastolic 54–78; PULSE 74–78; RESP 16–108; TEMP 36.6–36.9; O2SAT 92–98; BMI 43.1
[2021-10-07] MEDS: Lactated Ringers 1,000 ML 15 ML IV (06:45)
--- NOTE | 2021-10-07 07:27 | PCM.HP.BLA ---
History and Physical Date of Admission: 10/07/21 Intake Vital Signs ? 07/13/2212:29 Height 5 ft 7 in Weight: 289 lb BMI 45.2 BP 96/62 Blood Pressure Location Rt radial Position Sitting Respiration 22 H Pulse Oximetry (%) 73 Oxygen Delivery Method nasal canula Oxygen Flow Rate (L/min) 4 Comment Pt states this is normal when on int Intake Visit Reasons:?EGD/COLONOSCOPY (NO SHOW ON 06/13/21) Chief Complaint: anemia Manager Fund Required: No Is patient in pain?: No Allergies No Known Allergies Allergy (Verified 07/13/21 13:24) Medications atorvastatin 40 mg PO QHS 04/24/19 [History Confirmed 07/13/21] doxepin 50 mg PO QHS 04/24/19 [History Confirmed 07/13/21] gabapentin 300 mg PO TID 04/24/19 [History Confirmed 07/13/21] ascorbic acid (vitamin C) 1,000 mg PO BID 05/06/20 [History Confirmed 07/13/21] ferrous sulfate 325 mg PO DAILY 05/06/20 [History Confirmed 07/13/21] guaifenesin 600 mg PO BID 05/06/20 [History Confirmed 07/13/21] levothyroxine 50 mcg PO DAILY 05/06/20 [History Confirmed 07/13/21] albuterol sulfate 2 puff INHALATION Q4H PRN PRN 05/24/20 [History Confirmed 07/13/21] menthol 1 applic TP QHS 05/24/20 [History Confirmed 07/13/21] nystatin 1 applic TOPICAL BID 05/24/20 [History Confirmed 07/13/21] fluoxetine 60 mg PO DAILY 05/27/20 [History Confirmed 07/13/21] digoxin 125 mcg PO DAILY? tab 06/01/20 [Rx Confirmed 07/13/21] diltiazem HCl 120 mg PO DAILY? cap 06/01/20 [Rx Confirmed 07/13/21] metoprolol tartrate 25 mg PO BID? tab 06/01/20 [Rx Confirmed 07/13/21] potassium chloride 20 meq PO DAILY #0 06/01/20 [Rx Confirmed 07/13/21] spironolactone 25 mg PO DAILY #30 tab 06/01/20 [Rx Confirmed 07/13/21] torsemide 20 mg PO BID #60 tab 06/01/20 [Rx Confirmed 07/13/21] PFSH Medical History?(Updated 07/13/21 @ 14:30 by Patt Goldstein) Bilateral chronic knee pain CHF (congestive heart failure), NYHA class III Chronic anemia Chronic bronchitis Chronic diastolic (congestive) heart failure Contusion of left lower leg, sequela COVID-19 virus detected (03/2020) Depression Essential (primary) hypertension Frequent falls H/O methicillin resistant Staphylococcus aureus History of blood transfusion Hypothyroidism Longstanding persistent atrial fibrillation Morbid obesity with BMI of 50.0-59.9, adult JASMIN (obstructive sleep apnea) Osteoarthritis Pancreatitis Pancytopenia Peripheral neuropathy Secondary pulmonary arterial hypertension Type 2 diabetes mellitus Ulcer of left lower extremity with fat layer exposed Surgical History? H/O umbilical hernia repair History of incision and drainage (02/2020) History of skin graft History of tonsillectomy and adenoidectomy Hx of cholecystectomy Family History? Father?? ,? 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 Smoking Status:? Former smoker how long ago did patient quit smoking:? 2000, 1pk/day second hand exposure:? Yes alcohol intake:? former substance use type:? does not use what type of physical activity do you participate in:? none seatbelt use:? always do you feel safe at home:? Yes additional social history:? does not take aspirin does not take ibuprofen ? HPI HPI HPI: MARY ABEL, is a 55 F who presents to the office today for iron deficiency anemia.? Patient is here to have EGD and colonoscopy.? The patient reports no blood in her stool that she can see.? She is not having any abdominal pain.? No nausea or vomiting.? She reports her last endoscopy was over 10 years ago. ROS General General: Yes fatigue; No weight change, appetite, colon cancer, breast cancer or weakness HEENT HEENT: No difficulty swallowing, eye injury, eye surgery, swollen glands or hoarseness Endo Endocrine: No thyroid disease, diabetes mellitus, thyroid cancer, Hair loss, heat intolerance or cold intolerance Skin Skin: No rash or changing moles Breast Breast: No left breast lump, right breast lump, nipple discharge, breast pain, abnormal mammogram, abnormal US or breast enlargement Musc Musculoskeletal: Yes arthritis; No back problems, rheumatoid arthritis, gout or joint pain Cardio Cardiovascular: Yes heart disease, atrial fibrillation and high blood pressure; No murmur, pacemaker, heart attack, heart stent, palpitations, shortness of breat with exertion or chest pain Psych Psychiatric: Yes depression and anxiety; No hearing voices Resp Respiratory: Yes shortness of breath, Yes sleep apnea, No cough, Yes COPD, No asthma, No emphysema and No wheezing Gastro Gastrointestinal: No abdominal pain, Yes nausea or vomiting, No diarrhea, No constipation, No blood in stool, Yes acid reflux, No hemorrhoids, No ulcers, Yes gallbladder problem and No black,tarry stools Marcelo Hematologic: Yes blood thinners, No blood disorders, No bleeding, Yes anemia and No blood clots Neuro Neurologic: No system reviewed and no additional complaints, except as documented, No as per HPI, No abnormal gait, No abnormal hearing, No abnormal movements, No abnormal speech, No behavioral changes, No burning sensations, No confusion, No convulsions, No disequilibrium, No dizziness, No localized weakness, No frequent falls, No headache(s), No lack of coordination, No loss of vision, No memory loss, Yes numbness, No other visual disturbances, No radicular pain, No restless legs, No sensory deficit, No syncope, Yes tingling, No tremor(s), No weakness and No other Exam Const General: cooperative Orientation: alert and oriented x3 HENMT Head: normal to inspection Neck Neck: normal visual inspection and full ROM Chest Chest palpation & inspection: normal inspection of the chest Resp Effort & Inspection: normal respiratory effort Auscultation: clear to auscultation bilaterally Cardio Rate: regular rate Rhythm: regular rhythm GI Inspection: non-distended Palpation: soft and nontender Skin General: no rashes or lesions noted Neuro General: patient alert and patient oriented x3 Extrem General: full ROM, cyanosis and edema Psych Appearance: grossly normal Mental Status: mental status grossly normal Assessment and Plan Assessment and Plan (1) Chronic anemia: ?Status:?Chronic ? ? ? Orders:?Orders: ? Colonoscopy Today ? ? ? EGD Today ?Plan - Dr. Dano Turcios MD: The patient has iron deficiency anemia but it seems that she also has pancytopenia.? I would like her to be seen by hematology and I will perform EGD and colonoscopy.? The patient is hypokalemic on her last blood draw and she reports Dr. Garcia prescribed her oral potassium replacement.? I advised her to continue taking these reliably as if she comes in hypokalemic she may get canceled for surgery. I explained endoscopy in detail to the patient.? I explained the risks including but not limited to stroke or heart attack with anesthesia, perforation of the GI tract, bleeding, infection.? I explained that any of these could necessitate further emergency surgery.? The patient understands and all questions were answered sufficiently.? The patient wishes to proceed with procedure. Dano Turcios MD Pager: [facility] [address] [place] [address], [address] [place] [address] Office: I have re-examined the patient. There are no clinical changes since date of exam.
--- NOTE | 2021-10-07 08:05 | OP.COLON_ITS ---
Patient Name: Meghan Centeno Procedure Date: 10/07/2021 7:28 AM Date of : 1965 Age: 55 Procedure: Colonoscopy Indications: Iron deficiency anemia Providers: Dano Turcios MD Medicines: Monitored Anesthesia Care Patient Profile: Last Colonoscopy: more than 10 years ago. Complications: No immediate complications. Procedure: Pre-Anesthesia Assessment: - Prior to the procedure, a History and Physical was performed, and patient medications and allergies were reviewed. The patient's tolerance of previous anesthesia was also reviewed. The risks and benefits of the procedure and the sedation options and risks were discussed with the patient. All questions were answered, and informed consent was obtained. Prior Anticoagulants: The patient has taken no previous anticoagulant or antiplatelet agents. After reviewing the risks and benefits, the patient was deemed in satisfactory condition to undergo the procedure. After I obtained informed consent, the scope was passed under direct vision. Throughout the procedure, the patient's blood pressure, pulse, and oxygen saturations were monitored continuously. The colonoscope was introduced through the anus and advanced to the transverse colon. The patient tolerated the procedure well. The quality of the bowel preparation was inadequate. The colonoscopy was extremely difficult due to a tortuous colon. Scope In: 7:38:39 AM Scope Out: 7:59:06 AM Total Procedure Duration Time 0 hours 20 minutes 27 seconds Findings: The entire examined colon appeared normal. Impression: - Preparation of the colon was inadequate. - The entire examined colon is normal. - No specimens collected. Recommendation: - Discharge patient to home. - Resume previous diet. - Continue present medications. - Repeat colonoscopy at appointment to be scheduled because the examination was incomplete. - Refer to a industrial twisting machine operator at appointment to be scheduled. Procedure Code(s): --- Professional --- 79085, 53, Colonoscopy, flexible; diagnostic, including collection of specimen(s) by brushing or washing, when performed (separate procedure) Diagnosis Code(s): --- Professional --- D50.9, Iron deficiency anemia, unspecified CPT copyright 2017 [employer]. All rights reserved. The codes documented in this report are preliminary and upon clinical review nurse review may be revised to meet current compliance requirements. Dano Turcios MD 10/07/2021 8:04:57 AM This report has been signed electronically. Number of Addenda: 0 Note Initiated On: 10/07/2021 7:28 AM
--- NOTE | 2021-10-07 08:06 | OP.CCLET_ITS ---
10/07/2021 Nabor Garcia MD [address] [place] [address] Re : Colonoscopy procedure for Meghan Centeno Dear Dr. Garcia This procedure was performed on Thursday, October 07, 2021. My impressions and recommendations are as follows: Impressions : - Preparation of the colon was inadequate. - The entire examined colon is normal. - No specimens collected. Recommendations : - Discharge patient to home. - Resume previous diet. - Continue present medications. - Repeat colonoscopy at appointment to be scheduled because the examination was incomplete. - Refer to a cryptographic machine operator at appointment to be scheduled. My findings are described in the full procedure note, which is enclosed. If I can be of further assistance, please feel free to contact me at Doctor phone number(s): , Work: . Sincerely, Dano Turcios MD 10/07/2021 8:04:57 AM This report has been signed electronically.
[2021-10-07 09:20] LABS: Bedside Glucose 98 mg/dL (74-106)
== END 2021-10-07 08:49 | disposition home or self-care (01) ==
LOC: EN 06:35 → AC 06:50
PROVIDERS: PCP Family Medicine Geriatric Medicine; Referring Provider Family Medicine Geriatric Medicine; Visit Provider Surgery
PROC: 0DJD8ZZ Inspection of Lower Intestinal Tract, Via Natural or Artificial Opening Endoscopic (ICD-10-PCS; CPT 45378; principal; 2021-10-07 07:25)
DX: D50.9 Iron deficiency anemia, unspecified (principal); I11.0 Hypertensive heart disease with heart failure; I50.32 Chronic diastolic (congestive) heart failure; I48.11 Longstanding persistent atrial fibrillation; E66.01 Morbid (severe) obesity due to excess calories; Z68.43 Body mass index [BMI] 50.0-59.9, adult; E11.9 Type 2 diabetes mellitus without complications; E03.9 Hypothyroidism, unspecified; E87.6 Hypokalemia; G47.33 Obstructive sleep apnea (adult) (pediatric); Z79.01 Long term (current) use of anticoagulants; Z79.890 Hormone replacement therapy; Z99.81 Dependence on supplemental oxygen; Z87.891 Personal history of nicotine dependence
CPT/HCPCS: 45378; 82962; J7120; J2405

== ENCOUNTER → 2021-11-04 | Outpatient (CLI) | payer MEDICARE, MEDICAID, SELFPAY | END | disposition home or self-care (01) | LOC: SL 20:22 | PROVIDERS: PCP Family Medicine Geriatric Medicine; Referring Provider Internal Medicine Critical Care Medicine; Visit Provider Internal Medicine Critical Care Medicine | DX: G47.33 Obstructive sleep apnea (adult) (pediatric) (principal) | CPT/HCPCS: 95811 ==

== ENCOUNTER → 2022-01-17 | Outpatient (CLI) | payer MEDICARE, MEDICAID, SELFPAY ==
[2022-01-17 16:59] LABS: Absolute Lymphocyte Count 0.75 X10^3/uL (0.83-4.51); Absolute Neutrophil Count 2.3 X10^3/uL (2.0-7.7); Basophil# 0.04 X10^3/uL; Basophil% 1.1 % (0-1); Eosinophil# 0.12 X10^3/uL; Eosinophils% 3.4 % (0-5); Hematocrit 31.9 % (37-47); Hemoglobin 9.4 g/dL (12.0-15.0); Lymphocyte # 0.75 X10^3/ul (0.83-4.51); Lymphocyte % 21.2 % (19-41); Mean Corp Hgb Conc 29.5 g/dL (32-36); Mean Corpuscular Hgb 29.6 pg (27.0-32.0); Mean Corpuscular Volume 100.3 fL (81-99); Monocyte# 0.29 X10^3/uL; Monocyte% 8.2 % (0-10); NRBC Flagged by Analyzer 0 % (0-5); Neutrophil # 2.33 X10^3/uL (2.7-7.7); Neutrophil % 66.1 % (47-70); Platelet Count 163 K/mm3 (150-450); RBC Distribution Width CV 16.1 % (11.6-14.6); RBC Distribution Width SD 59.7 fl (35.1-43.9); Red Blood Count 3.18 M/mm3 (4.2-5.4); White Blood Count 3.5 K/mm3 (4.4-11.0)
[2022-01-17 17:35] LABS: ALB/GLOB Ratio 0.7 RATIO (0.9-2.4); AST(SGOT) 23 U/L (15-37); Alanine Aminotransfer ALT/SGPT 18 U/L (13-56); Albumin, Serum 3.1 g/dL (3.2-5.0); Alkaline Phosphatase 222 U/L (45-117); Anion Gap 6 (5-15); BUN 24 mg/dL (7-18); BUN/Creat Ratio 22.9 RATIO (10-20); Chloride 102 mmol/L (98-107); Creatinine, Serum 1.05 mg/dL (0.55-1.02); EST Glomerular Filtration Rate 57 mL/min (>60); Est Glom Filt Rate - Afr Amer 69 mL/min (>60); Globulin 4.4 g/dL (2.2-4.2); Glucose 87 mg/dL (74-106); Potassium 3.6 mmol/L (3.5-5.1); Protein, Total 7.5 g/dL (6.4-8.2); Sodium Level 140 mmol/L (136-145)
== END | disposition home or self-care (01) ==
LOC: POLAB3 09:07
PROVIDERS: PCP Family Medicine Geriatric Medicine; Visit Provider Family Medicine Geriatric Medicine
DX: E11.65 Type 2 diabetes mellitus with hyperglycemia (principal); I10 Essential (primary) hypertension; E55.9 Vitamin D deficiency, unspecified
CPT/HCPCS: 36415; 80053; 82306; 84443; 85025

== ENCOUNTER → 2022-01-25 | Outpatient (CLI) | payer MEDICARE, MEDICAID, SELFPAY | END | disposition home or self-care (01) | LOC: SL 12:50 | PROVIDERS: PCP Family Medicine Geriatric Medicine; Visit Provider Nurse Practitioner Acute Care | DX: Z46.89 Encounter for fitting and adjustment of other specified devices (principal) ==